=== PATIENT | male | born 1955 | race American Indian/Alaskan Native ===

== ENCOUNTER 2019-07-20 12:27 | Emergency (ER) | payer OTHER, SELFPAY ==
[2019-07-20 12:35] VITALS: BP 121/84; PULSE 81; RESP 18; TEMP 36.9; O2SAT 94; BMI 30.4
[2019-07-20 12:49] VITALS: BP 121/84; PULSE 87; RESP 18; O2SAT 95
--- NOTE | 2019-07-20 12:54 | XRR_ITS ---
PROCEDURE INFORMATION: Exam: XR Chest, 1 View Exam date and time: 07/20/2019 1:10 PM Age: 63 years old Clinical indication: Cough and dyspnea; Chest pain; Type not specified; Prior surgery; Surgery type: Lobectomy left side, aneurysm, hernia; Patient HX: Chest and shoulder pain; Additional info: Dyspnea/cough TECHNIQUE: Imaging protocol: XR of the chest Views: 1 view. COMPARISON: No relevant prior studies available. FINDINGS: Lungs: Interstitial prominence and chronic granulomatous disease. Mild thickening of the right minor fissure, with trace adjacent airspace disease. Poorly defined density overlying the left lung base, believed to represent epicardial fat. Correlation with PA and lateral chest radiographs is recommended for confirmation. Pleural space: No significant pleural effusion. Heart/Mediastinum: No cardiomegaly. Bones/joints: Degenerative change. XR/XR chest 1V portable [id number] IMPRESSION: 1. Mild thickening of the right minor fissure, with trace adjacent airspace disease. 2. Poorly defined density overlying the left lung base, believed to represent epicardial fat. Correlation with PA and lateral chest radiographs is recommended for confirmation.
--- NOTE | 2019-07-20 12:56 | ED_ITS ---
HPI - SOB/Dyspnea General: Chief Complaint: Shortness of Breath/Dyspnea Stated Complaint: shoulder pain Time Seen by Provider: 07/20/19 12:38 History of Present Illness: HPI Narrative: 63-year-old male comes in complaining of right upper back pain started overnight. He did eat a count of a fatty meal last night he denies any fever denies any nausea vomiting or diarrhea the no dysuria urgency or frequency no hematuria is not had any GI blood loss of any kind he has a mild vague abdominal pain, epigastric epigastric upper abdominal. He can reproduce the pain with a deep breath he denies any hemoptysis. He is not had any productive cough lately does smoke and has been started on inhalers told he has COPD he states his cough is actually decreased because it is painful to take a deep breath. MD elicited complaint: shortness of breath and pain with inspiration Pertinent past history: COPD Onset (ago): day(s) Timing: intermittent Severity: mild Exacerbating factors: inspiration Relieving factors: rest and upright position Known history of: COPD Associated symptoms: Reports abdominal pain; Deny chest pain, fever(s) or orthopnea Review of Systems Const: Denies: fever(s), chills, body aches, change in appetite, fatigue or malaise ENMT: Denies: throat pain, ear or mastoid pain, nasal discharge or nasal congestion Card: Denies: chest pain, edema, dyspnea on exertion or orthopnea Resp: Denies: dyspnea, productive cough or non-productive cough GI: Reports: abdominal pain : Denies: flank pain, dysuria, urinary frequency or urinary urgency Skin/Breast: Denies: rash or pruritus PFSH ED PFSH: Medical History Allergies Aortic aneurysm Arthritis COPD (chronic obstructive pulmonary disease) Heart attack History of hepatitis C HTN (hypertension) Surgical History H/O hernia repair S/P lobectomy of lung Family History Father Cancer Family/Other CAD (coronary artery disease) Cancer Grandfather Cancer Mother Brain aneurysm Social History Smoking and tobacco status: current every day smoker cigarettes Packs smoked per day: 2 Years cigarettes smoked: 50 Quit status (tobacco): has tried quititng Alcohol intake: current Alcohol intake frequency: 0-2 Drinks per Day Alcohol type: beer Lives independently: Yes Household members: spouse Marital status: service: Yes Current occupational status: disabled History of recent travel: No Current gender identity: Male Physical Exam Const: COMMON NORMALS: no acute distress GENERAL APPEARANCE: cooperative and comfortable ORIENTATION/CONSCIOUSNESS: Yes awake, Yes oriented to person, Yes oriented to place and Yes oriented to time HENMT: COMMON NORMALS: normocephalic, atraumatic, hearing grossly normal bilaterally, external ears normal, EAC's normal, TM's normal bilaterally, Normal nasal mucous membranes and turbinates present, moist oral mucous membranes and oropharynx normal HEAD & SCALP: normocephalic and atraumatic NOSE: Normal nasal mucous membranes and turbinates present EXTERNAL EAR: Yes external ears normal EXTERNAL AUDITORY CANAL: EAC's normal TYMPANIC MEMBRANE: TM's normal bilaterally Eye: COMMON NORMALS: Equal, round and reactive pupils present, EOMs intact bilaterally, conjunctivae normal and no scleral icterus CONJUNCTIVA: Yes conjunctivae normal PUPIL: Yes Equal, round and reactive pupils present Neck/C-Spine: COMMON NORMALS: full ROM, no lymphadenopathy, supple and no JVD Lymph: LYMPHATIC: no lymphadenopathy noted and no lymphedema noted Resp: COMMON NORMALS: normal respiratory effort, No retractions, No use of accessory muscles and clear to auscultation bilaterally AUSCULTATION: clear to auscultation bilaterally Cardio: COMMON NORMALS: no JVD, regular rate, regular rhythm and No murmurs present (Cardio) RATE: regular rate RHYTHM: regular rhythm GI: COMMON NORMALS: Soft to palpation and No hepatosplenomegaly present AUSCULTATION: Yes normoactive bowel sounds PALPATION: Yes Soft to palpation, No Tenderness to palpation present (GI), No Guarding due to palpation present (GI) and Yes No hepatosplenomegaly present Extremity: COMMON NORMALS: normal to inspection, capillary refill normal, no clubbing, cyanosis or edema, no calf tenderness and no pedal edema Neuro: SENSORIUM/ORIENTATION: Yes oriented to person, Yes oriented to place and Yes oriented to time Skin: COMMON NORMALS: no rashes or lesions noted GENERAL SKIN EXAM: no rashes or lesions noted Course Vital Signs: Vital signs: Vital Signs Temperature 98.5 F 07/20/19 12:35 Pulse Rate 76 07/20/19 15:23 Respiratory Rate 18 07/20/19 15:23 Blood Pressure 120/97 07/20/19 15:23 Pulse Oximetry 93 07/20/19 15:23 MDM - SOB/Dyspnea MDM Narrative: Medical decision making narrative: Reviewed findings with the patient. Very concerning mass in the right lung I think that is causing his discomfort will give him pain medications. Reviewing his chart he seen Dr. Salinas few months ago that recommended a CT screening for lung cancer he had not gotten that done yet. Given the results of today's CT does not need to screen anymore it is already showing a mass we will get him into see Dr. Salinas he will need a biopsy of this area hopefully will be amenable to be done through a bronchoscopy. Lab Data: Labs: Lab Results 07/20/19 07/20/19 07/20/19 Range/Units 13:04 13:04 13:40 WBC 8.7 (4.0-10.0) 10^3/ uL RBC 4.79 (4.1-5.3) 10^6/u L Hgb 14.8 (11.7-16.6) g/dL Hct 45.7 (42.0-52.0) % MCV 95.4 H (80-94) fL MCH 30.9 (28.0-34.0) pg MCHC 32.4 (30.0-36.0) g/dL RDW 12.7 (12.1-15.1) % Plt Count 202 (130-400) 10^3/c mm MPV 10.1 (7.4-10.4) fL Neut % (Auto) 55.2 % Lymph % (Auto) 31.9 % [place] % (Auto) 8.6 % Eos % (Auto) 3.4 % Baso % (Auto) 0.7 % Neut # (Auto) 4.8 (1.8-7.7) 10^3/u L Lymph # (Auto) 2.8 (0.8-4.8) 10^3/u L [place] # (Auto) 0.8 (0.2-0.9) 10^3/u L Eos # (Auto) 0.3 (0.0-0.8) 10^3/u L Baso # (Auto) 0.1 (0.0-0.1) 10^3/u L Nucleated RBC % (a uto) 0 % Nucleated RBCs # 0.0 /100WBC Sodium 138 (136-145) mmol/L Potassium 4.3 (3.5-5.1) mmol/L Chloride 101 (98-107) mmol/L Carbon Dioxide 24 (22-29) mmol/L Anion Gap 17.3 (5-19) BUN 10 (8-23) mg/dL Creatinine 0.8 (0.7-1.2) mg/dL GFR Calculation 97.0 (90-130) mL/min Glucose 102 (65-115) mg/dL Calculated Osmolal ity 282 L (285-295) mOsm/k g Calcium 9.4 (8.5-10.5) mg/dL Total Bilirubin 0.2 (0.15-1.2) mg/dL AST 23 (0-40) U/L ALT 17 (0-41) U/L Alkaline Phosphata se 63 (40-130) IU/L Total Protein 7.9 (6.6-8.7) g/dL Albumin 4.4 (3.5-5.2) g/dL Globulin 3.5 (1.3-4.6) g/dL Lipase 54 (13-60) U/L Urine Color Yellow (Yellow) Urine Appearance Clear (CLEAR) Urine pH 5 (5-7) Ur Specific Gravit y 1.015 (1.005-1.030) Urine Protein Neg (Negative) Urine Glucose (UA) Norm (Normal) Urine Ketones Negative (Negative) Urine Blood Neg (Negative) Urine Nitrate Negative (Negative) Urine Bilirubin Neg (NEGATIVE) Urine Urobilinogen Norm (Negative) mg/dL Ur Leukocyte Angela ase Negative (Negative) Discharge Plan Discharge Patient Disposition: Home, Self-Care Clinical Impression: Mass of right lung, COPD (chronic obstructive pulmonary disease) Condition: Stable Prescriptions: New doxycycline hyclate 100 mg capsule 100 mg PO BID 10 Days Qty: 20 RF: 0 hydrocodone-acetaminophen 5-325 mg tablet 1 tab PO Q6H PRN (Reason: pain) Qty: 25 RF: 0 Medrol (Nick) 4 mg tablets,dose pack See Rx Instructions .ROUTE .COMPLEX Qty: 21 RF: 0 No Action budesonide-formoterol [Symbicort] 160-4.5 mcg/actuation HFA aerosol inhaler 2 puff INHALATION BID RF: 0 oxycodone 5 mg capsule 5 mg PO Q6H PRN (Reason: Pain) RF: 0 gabapentin 300 mg capsule 300 mg PO TID RF: 0 tamsulosin 0.4 mg capsule 0.4 mg PO DAILY RF: 0 lisinopril 10 mg tablet 10 mg PO DAILY RF: 0 guaifenesin 400 mg tablet 400 mg PO BID PRN (Reason: unknown) RF: 0 cetirizine [Zyrtec] 10 mg tablet 10 mg PO DAILY RF: 0 diclofenac sodium 75 mg tablet,delayed release (DR/EC) 75 mg PO BID RF: 0 aspirin [Aspirin Low Dose] 81 mg tablet,delayed release (DR/EC) 81 mg PO DAILY RF: 0 omega-3 fatty acids [Fish Oil Concentrate] 1,000 mg capsule 1,000 mg PO DAILY RF: 0 diphenhydramine HCl [Benadryl Allergy] 25 mg tablet 25 mg PO BID PRN (Reason: unknown) RF: 0 Trelegy Ellipta 100-62.5-25 mcg blister with device 1 inh INHALATION Q24H 90 Days Qty: 60 RF: 3 fluticasone propionate [Flonase Allergy Relief] 50 mcg/actuation spray,suspension 1 spray INTRANASAL BID 90 Days Qty: 18.2 RF: 3 albuterol sulfate 2.5 mg /3 mL (0.083 %) Solution For Nebulization 2.5 mg INHALATION Q6H PRN (Reason: Shortness Of Breath) RF: 0 hydrochlorothiazide 25 mg Tablet 12.5 mg PO QAM RF: 0 ProAir HFA 90 mcg/actuation Hfa Aerosol Inhaler 2 puff INHALATION QID PRN (Reason: Shortness Of Breath) RF: 0 potassium gluconate 595 mg (99 mg) Tablet 595 mg PO DAILY RF: 0 Vitamin D3 50 mcg (2,000 unit) Tablet 4,000 unit PO DAILY RF: 0 magnesium oxide 1 tab PO DAILY RF: 0 Discharge Orders: Discharge Order (Routine); Ordered 07/20/19 Ordered By: Eleazar Thomas Referrals: Mary Salinas MD [Physician] - (Right lung mass on CT will need biopsy has history of previous adeno CA lung on the left lower lobe) Discharge Diet: Usual diet Discharge Activity: Increase activity as tolerated Activity Restrictions/Additional Instructions: client relationship manager will call to get you back into see Dr. Salinas for further evaluation Discharge Date/Time: 07/20/19 15:18 Coding Level of Care Code ED Lan Manager for Chg Fwd Exam Comprehensive
[2019-07-20] MEDS: sodium chloride 0.9% 1,000 ML 999 ML IV (13:06)
[2019-07-20 13:11] VITALS: BP 121/84; PULSE 84; RESP 18; O2SAT 95
[2019-07-20 13:12] LABS: Basophils # 0.1 10^3/uL (0.0-0.1); Basophils % 0.7 %; Eosinophils # 0.3 10^3/uL (0.0-0.8); Eosinophils % 3.4 %; Hematocrit 45.7 % (42.0-52.0); Hemoglobin 14.8 g/dL (11.7-16.6); Lymphocytes # 2.8 10^3/uL (0.8-4.8); Lymphocytes % 31.9 %; Mean Corpuscular HGB Conc 32.4 g/dL (30.0-36.0); Mean Corpuscular Hemoglobin 30.9 pg (28.0-34.0); Mean Corpuscular Volume 95.4 fL (80-94); Mean Platelet Volume 10.1 fL (7.4-10.4); Monocytes # 0.8 10^3/uL (0.2-0.9); Monocytes % 8.6 %; Neutrophils # 4.8 10^3/uL (1.8-7.7); Neutrophils % 55.2 %; Nucleated Red Blood Cells % 0 %; Platelet Count 202 10^3/cmm (130-400); Red Blood Count 4.79 10^6/uL (4.1-5.3); Red Cell Distribution Width 12.7 % (12.1-15.1); White Blood Count 8.7 10^3/uL (4.0-10.0)
[2019-07-20 13:25] LABS: Alanine Aminotransferase 17 U/L (0-41); Albumin Level 4.4 g/dL (3.5-5.2); Alkaline Phosphatase 63 IU/L (40-130); Anion Gap 17.3 (5-19); Aspartate Amino Transferase 23 U/L (0-40); Blood Urea Nitrogen 10 mg/dL (8-23); Calcium 9.4 mg/dL (8.5-10.5); Carbon Dioxide 24 mmol/L (22-29); Chloride 101 mmol/L (98-107); Globulin 3.5 g/dL (1.3-4.6); Glucose 102 mg/dL (65-115); Lipase 54 U/L (13-60); Osmolality Calculated 282 mOsm/kg (285-295); Potassium 4.3 mmol/L (3.5-5.1); Sodium 138 mmol/L (136-145); Total Bilirubin 0.2 mg/dL (0.15-1.2); Total Protein 7.9 g/dL (6.6-8.7)
--- NOTE | 2019-07-20 13:50 | CT_ITS ---
WS: [id number] CT CHEST ANGIOGRAPHY WITH REFORMATS HISTORY: dyspnea TECHNIQUE: Contiguous axial images are obtained through the chest during arterial injection of intrav enous contrast. Images are reconstructed to evaluate the pulmonary arteries. MIP imaging also reviewe d. All CT scans at [facility] use at least one of these dose optimization techniques: aut omated exposure control; mA and/or kV adjustment per patient size (includes targeted exams where dose is matched to clinical indication); or iterative reconstruction. CONTRAST: Omnipaque 350; 95 mL IV. DLP: 568.74 mGy.cm COMPARISON: 08/08/2012 Very good opacification of the pulmonary arteries. There are no filling defects or pulmonary embolism . Atherosclerosis of the thoracic aorta with no aneurysm. Pulmonary artery size is normal. Chronic emphysema. There is new groundglass attenuation along the RIGHT minor fissure. Groundglass at tenuation extends into the RIGHT hilum. RIGHT hilar soft tissue mass is probably a cluster of lymph n odes encasing the RIGHT hilar bronchial structures. There is invasion into the superior RIGHT pulmona ry vein. Soft tissue mass measures at least 3.3 x 3.8 cm. Additional subcarinal lymph node at 1.2 cm. Long-term stability 6 mm nodule at the RIGHT lung base. No adrenal mass. No abnormality within the liver. Liver evaluation is limited by contrast injection t iming. Partial visualization endovascular graft in the abdominal aorta. No osteoblastic or osteolytic bone disease. There are several healed rib fractures in the posterior L EFT thorax. CT/CT angio chest PE protcl [id number] IMPRESSION: 1. No pulmonary embolism. 2. RIGHT hilar mass encasing the central RIGHT bronchopulmonary structures arjun sures at least 3.3 x 3.8 cm with invasion into the superior RIGHT pulmonary vei n. Most likely adenopathy or squamous cell carcinoma. Recommend follow-up PET/C T imaging. 3. Enlarged subcarinal lymph node. 4. Chronic emphysema. 5. Groundglass attenuation along the RIGHT minor fissure is either 2 pneumonit is or lymphangitic spread of tumor.
[2019-07-20 13:54] VITALS: BP 120/97; PULSE 75; RESP 18; O2SAT 93
[2019-07-20 13:54] LABS: Add Urine Microscopic? NO
[2019-07-20 13:59] LABS: Bilirubin Urine Neg (NEGATIVE); Blood Urine Neg (Negative); Glucose Urine UA Norm (Normal); Ketones Urine Negative (Negative); Leukocyte Esterase Urine Negative (Negative); Nitrate Urine Negative (Negative); Protein Urine Neg (Negative); Specific Gravity, Urine 1.015 (1.005-1.030); Urine Appearance Clear (CLEAR); Urine Color Yellow (Yellow); Urobilinogen Urine Norm (Negative); pH Urine 5 (5-7)
[2019-07-20] MEDS: iohexol 350 mg/mL 100 mL Btl IV (14:10)
[2019-07-20 15:23] VITALS: BP 120/97; PULSE 76; RESP 18; O2SAT 93
--- NOTE | 2019-07-23 09:40 | DCPLANNER ---
completion manager had message to schedule a follow up appointment for patient with Dr. Salinas at [facility], [place]. completion manager called [facility], spoke with [place], gave clinic patients information. completion manager was told that patients information would be printed and reviewed. Clinic will call patient with appointment information.
--- NOTE | 2019-07-24 08:42 | DCPLANNER ---
Patient has a follow up appointment scheduled for Tuesday, July 30, 2019 at 8:[address] Salinas. supplier quality manager has spoke with May [facility] and informed her that patient has an appointment scheduled. Clinic will call patient with appointment information. supplier quality manager faxed patients information to [facility] the [facility].
--- NOTE | 2019-08-08 14:37 | DCPLANNER ---
Patient did attend appointment scheduled for 08.07.19 with [facility].
== END 2019-07-20 15:18 | disposition home or self-care (01) ==
PROVIDERS: Emergency Provider Family Medicine; PCP Emergency Medicine Emergency Medical Services
DX: J44.9 Chronic obstructive pulmonary disease, unspecified (principal); R91.8 Other nonspecific abnormal finding of lung field; Z79.82 Long term (current) use of aspirin; I10 Essential (primary) hypertension; Z86.19 Personal history of other infectious and parasitic diseases; F17.210 Nicotine dependence, cigarettes, uncomplicated
CPT/HCPCS: 12345; 71045; 71275; 80053; 81003; 83690; 85025; 96360; 99283; J7030; Q9967

== ENCOUNTER 2019-08-14 11:09 | Outpatient (CLI) | payer OTHER, SELFPAY ==
[2019-08-14 11:50] VITALS: O2SAT 93
--- NOTE | 2019-08-14 13:02 | PFTS_ITS ---
Date of Study:08/14/19 Date of Dictation: MECHANICS: Forced vital capacity (FVC) is reduced. Forced expiratory volume in one second (FEV1) is reduced. FEV1/FVC is reduced. FLOW VOLUME LOOP: Reduced flow at all lung volumes with significant scooping. LUNG VOLUMES: Total lung capacity (TLC) is normal. Residual volume (RV) is elevated. DIFFUSING CAPACITY FOR CARBON MONOXIDE: Moderately reduced. INTERPRETATION: The pulmonary function tests are consistent with moderate obstruction. There is significant postbronchodilator response. Lung volumes are consistent with air trapping. Gas exchange (DLCO) is moderately reduced. MTDD
== END 2019-08-14 11:10 | disposition home or self-care (01) ==
LOC: RT 11:10
PROVIDERS: PCP Emergency Medicine Emergency Medical Services; Visit Provider Internal Medicine Critical Care Medicine
DX: J44.9 Chronic obstructive pulmonary disease, unspecified (principal)
CPT/HCPCS: 94060; 94726; 94729; J7611

== ENCOUNTER 2019-08-22 05:50 | Day surgery (SDC) | payer OTHER, SELFPAY ==
[2019-08-21 15:22] VITALS: BMI 29.5
[2019-08-22] VITALS (9 sets, daily range): BP systolic 124–167; BP diastolic 62–89; PULSE 78–103; RESP 16–24; TEMP 36.6–37.2; O2SAT 91–97
[2019-08-22] MEDS: sodium chloride 0.9% 1,000 ML 30 ML IV (06:22)
--- NOTE | 2019-08-22 06:49 | W.PM.OPSFHP ---
Same Day Surgery H&P Indication for Procedure/HPI DATE OF PROCEDURE: August 22, 2019 CHIEF COMPLAINT/INDICATIONFOR SURGICAL PROCEDURE: Suspected lung cancer PREOP DIAGNOSIS: Lung Cancer PLANNED PROCEDRUE: Bronchoscopy inspection of the airway, endobronchial ultrasound-guided transbronchial needle aspiration of lymph nodes, possible endobronchial biopsy Operation Date: 08/22/19 07:00 Proposed Procedures p Ebus(Not Applicable) - Mary Salinas MD This is a 63-year-old gentleman that I had evaluated in June of this year. The reason for the evaluation was COPD. The patient has gold class D COPD. The patient also has a history of adenocarcinoma of the left lung for which he underwent surgical resection. No chemoradiation therapy was performed. When I saw him the last time I had prescribed Trelegy which she has not gotten as the [place] did not approve for it. The patient was supposed to get a pulmonary function test, 6-minute walk test. The patient presented to the hospital with back pain on July 19. He underwent a chest CT scan as a part of work-up for pulmonary embolism. CT scan of the chest revealed a right hilar mass encasing the right bronchopulmonary structures. There was also subcarinal lymphadenopathy. The patient during his last visit was ordered a low-dose CT scan for lung cancer screening however that was not performed yet. The patient is an active smoker. Complaining of chronic cough, sputum production. Denies any fever, night sweats, chills, hemoptysis, weight loss or loss of appetite. Medications/Allergies* Home Medications Medication Instructions Recorded Confirmed Type aspirin 81 mg tablet,delayed 81 mg PO DAILY 06/19/19 08/21/19 History release cetirizine 10 mg tablet 10 mg PO DAILY 06/19/19 08/21/19 History diclofenac sodium 75 mg 75 mg PO BID 06/19/19 08/21/19 History tablet,delayed release diphenhydramine HCl 25 mg tablet 25 mg PO BID PRN tab 06/19/19 08/21/19 History gabapentin 300 mg capsule 300 mg PO TID 06/19/19 08/21/19 History guaifenesin 400 mg tablet 400 mg PO BID PRN tab 06/19/19 08/21/19 History lisinopril 10 mg tablet 10 mg PO DAILY 06/19/19 08/21/19 History omega-3 fatty acids 1,000 mg 1,000 mg PO DAILY 06/19/19 08/21/19 History capsule oxycodone 5 mg capsule 5 mg PO Q6H PRN 06/19/19 08/21/19 History tamsulosin 0.4 mg capsule 0.4 mg PO DAILY 06/19/19 08/21/19 History albuterol sulfate 2.5 mg INHALATION Q6H PRN 07/20/19 08/21/19 History albuterol sulfate [ProAir HFA] 2 puff INHALATION QID PRN 07/20/19 08/21/19 History cholecalciferol (vitamin D3) 4,000 unit PO DAILY 07/20/19 08/21/19 History [Vitamin D3] potassium gluconate 595 mg PO DAILY 07/20/19 08/21/19 History budesonide-formoterol [Symbicort] 2 puff INHALATION BID 08/21/19 08/21/19 History Allergies/Adverse Reactions Allergy/AdvReac Type Severity Reaction Status Date / Time Penicillins Allergy Severe ALGY-Rash Verified 08/21/19 15:25 [id number] Reductase Allergy Severe Unknown Verified 08/21/19 15:25 Inhibitor Current Medications: Generic Name Dose Route Start Last Admin Trade Name Freq PRN Reason Stop Dose Admin Sodium Chloride 1,000 mls @ 30 mls/hr 08/22/19 06:00 08/22/19 06:22 Sodium Chloride 0.9% IV 08/23/19 05:59 30 mls/hr .Q24H AGUS Administration Pertinent History/Comorbid Conditions* Medical History (Updated 08/07/19 @ 12:05 by Mary Salinas MD) Allergies Aortic aneurysm Arthritis COPD (chronic obstructive pulmonary disease) Heart attack History of hepatitis C HTN (hypertension) Surgical History (Updated 06/19/19 @ 08:59 by Mary Salinas MD) H/O hernia repair S/P lobectomy of lung Family History (Updated 06/19/19 @ 08:39 by Diana Amador LPN) CAD (coronary artery disease) Family/Other Brain aneurysm Mother Cancer Father Family/Other Grandfather Social History Smoking and tobacco status: current every day smoker cigarettes Packs smoked per day: 2 Years cigarettes smoked: 50 Quit status (tobacco): has tried quititng Alcohol intake: current Alcohol intake frequency: 0-2 Drinks per Day Alcohol type: beer Lives independently: Yes Household members: spouse Marital status: service: Yes Current occupational status: disabled History of recent travel: No Current gender identity: Male Pertinent Exam Findings alert and oriented x 3 General: Patient is awake alert and oriented, in no acute distress. Neck: No JVD, no cervical or supraclavicular lymphadenopathy. Respiratory: Inspection: No visible deformity of the chest wall Palpation: Trachea is mildly deviated to the left, bilateral symmetric expansion Percussion: Bilateral tympanic percussion note both anterior and posteriorly Auscultation: Reduced breath sound in the left lower lung posteriorly, bilateral vesicular breath sound with prolonged expiration, no crackles wheezing or rhonchi Cardiovascular: Regular rate and rhythm, S1-S2 present, distant heart sound, no murmur, no right ventricular heave, no peripheral edema Abdomen: Soft, nontender, mildly distended from obesity, positive bowel sound Musculoskeletal: Swelling of the right knee, normal gait Neuro: Mental status is normal, no gross cranial nerve deficit, normal motor and coordination. Recommendations Surgery/Procedure today Coding Level of Care Code Acute [place] Feather Trimmer for g Carrillo
--- NOTE | 2019-08-22 07:17 | ANES.PREANE2 ---
Pre-Anesthetic Assessment Pre-Anesthetic Assessment: Height/Weight: Height 1.75 m Weight 90.718 kg Temp Pulse Resp BP Pulse Ox 98.9 F 78 18 152/70 93 08/22/19 05:59 08/22/19 05:59 08/22/19 05:59 08/22/19 05:59 08/22/19 05:59 Preop Diagnosis: Lung Cancer Proposed Procedure: Operation Date: 08/22/19 07:00 Proposed Procedures p Ebus(Not Applicable) - Mary Salinas MD Was Beta Gauri taken within 24 hours: N/A Last intake: Intake Last Liquid Date 08/21/19 Last Liquid Time 22:00 Last Solid Date 08/21/19 Last Solid Time 18:30 Social: Social History: Alcohol and Tobacco Exam: Pre-Anes Outpt Exam: alert and oriented x 3 Additional Exam Findings (including area of procedure): Lungs: bilateral coarse rales; prolonged active expiratory phase Pulmonary: Pulmonary: COPD, Cough, REYEZ and SOB (s/p lobectomy) CV/HEM: CV/HEM: CAD (SC in 2008; no stents) and HTN : : Chronic renal Insufficiency Hepatic: Hepatic: None reported GI: GI: None reported Metabolic: Metabolic: None reported Musc/skel: Musc/skel: None reported Neuropsych: Neuropsych: None reported Anesthetic Plan: ASA status: 4 Anesthesia: General Meds/Allergies Current Medications: Current Medications Generic Name Dose Route Start Last Admin Trade Name Freq PRN Reason Stop Dose Admin Sodium Chloride 1,000 mls @ 30 ml s/hr 08/22/19 06:00 08/22/19 06:22 Sodium Chloride 0.9% IV 08/23/19 05:59 30 mls/hr .Q24H AGUS Administration PFSH Anesthesia PFSH: Medical History (Updated 08/07/19 @ 12:05 by Mary Salinas MD) Allergies Aortic aneurysm Arthritis COPD (chronic obstructive pulmonary disease) Heart attack History of hepatitis C HTN (hypertension) Surgical History H/O hernia repair S/P lobectomy of lung Family History Father Cancer Family/Other CAD (coronary artery disease) Cancer Grandfather Cancer Mother Brain aneurysm Social History Smoking and tobacco status: current every day smoker cigarettes Packs smoked per day: 2 Years cigarettes smoked: 50 Quit status (tobacco): has tried quititng Alcohol intake: current Alcohol intake frequency: 0-2 Drinks per Day Alcohol type: beer Lives independently: Yes Household members: spouse Marital status: service: Yes Current occupational status: disabled History of recent travel: No Current gender identity: Male Data Anesthesia Cardiac Studies: No Data to Display
--- NOTE | 2019-08-22 08:16 | PM.OP ---
Operative Report Date of procedure: August 22, 2019 Pre-op Diagnosis: Lung Cancer Post-op diagnosis: same Brief History: 63-year-old gentleman coming in for bronchoscopy evaluation for possible lung cancer. His recent CT scan revealed a right hilar mass encasing the vascular structures with invasion into the pulmonary vein. Procedure: Name of the procedure: Bronchoscopy with inspection of the airway, endobronchial ultrasound-guided transbronchial needle aspiration of lymph nodes and control of bleeding. Indication: Suspected lung cancer. Anesthesia: General anesthesia. Local anesthesia: The karin in the right and left mainstem bronchi were anesthetized with 1% lidocaine, 3 mL. Description of the procedure: The procedure was explained to the patient and the consent was obtained. The patient was brought to the OR. The patient underwent endotracheal intubation for general anesthesia. Following induction of general anesthesia, the bronchoscope was advanced through the ET tube. The lower trachea appeared to be erythematous, no endotracheal lesion was seen. The karin was sharp. The karin, the right and left mainstem bronchi are anesthetized with 1% lidocaine. In a systematic manner bilateral bronchial tree was then examined. The bronchoscope was advanced into the left mainstem bronchus. The left upper lobe and lingular segment bronchus was occluded consistent with a previous history of left upper lobe resection. There was distortion of the left mainstem bronchus. The bronchoscope was introduced into the left lower lobe bronchus and the segments were examined up to the third subsegmental level. No endobronchial lesion was seen. The bronchoscope was then introduced into the right mainstem bronchus. The right upper lobe, right middle lobe and right lower lobe bronchi were examined up to the third subsegmental level and no abnormalities were identified. There was airway significant erythema and mucus throughout the lung. The endobronchial ultrasound was introduced through the ET tube. Significant subcarinal and right hilar lymphadenopathy was identified. Fine-needle aspiration was performed from station 7 and 10. Samples: 1. The transbronchial needle aspiration of the aforementioned lymph node groups were sent for cytology. Complications: There was no immediate complications. The patient was extubated and brought to the PACU in stable condition.
[2019-08-22] MEDS: lidocaine 1% INJ 20 mL XX (08:36)
== END 2019-08-22 09:36 | disposition home or self-care (01) ==
PROVIDERS: PCP Emergency Medicine Emergency Medical Services; Visit Provider Internal Medicine Critical Care Medicine
PROC: BB4BZZZ Ultrasonography of Pleura (ICD-10-PCS; principal; 2019-08-22 07:00)
DX: Z85.118 Personal history of other malignant neoplasm of bronchus and lung (principal); R91.8 Other nonspecific abnormal finding of lung field; J44.9 Chronic obstructive pulmonary disease, unspecified; I25.10 Atherosclerotic heart disease of native coronary artery without angina pectoris; I25.2 Old myocardial infarction; I10 Essential (primary) hypertension; Z86.19 Personal history of other infectious and parasitic diseases; Z82.49 Family history of ischemic heart disease and other diseases of the circulatory system; F17.210 Nicotine dependence, cigarettes, uncomplicated; Z79.82 Long term (current) use of aspirin
CPT/HCPCS: 12345; 31628; 88173; 88305; J2250; J2405; J2704; J2710; J3010; J3490; J7030

== ENCOUNTER 2019-09-10 13:45 | Outpatient (CLI) | payer OTHER, SELFPAY ==
--- NOTE | 2019-09-10 19:14 | ONC CON_ITS ---
Dr. Grissom New Patient Note Patient: Satish Fry Unit #: [id number]: 1955 Dicatated By: Gino Grissom M.D.Date of Visit: Sep 10, 2019 Onc MED New Patient/Consult Referring Physician: Eugenio WOOD M.D. Chief Complaint: Lung cancer. History of Present Illness: This is a 63 year-old man with non-small cell lung cancer. On 09/04/2012 he underwent left upper lobectomy with mediastinal lymphadenectomy for grade 3/4 adenocarcinoma, stage IB (T2a, N0, M0). The primary tumor measured 3.1 x 3.0 x 2.6 cm. There was no involvement in a total of 14 lymph nodes. I had seen him for medical oncology consultation on 09/28/2012. He received no further treatment, as there appeared to be no indication for postoperative chemotherapy or radiation. On 07/20/2019 he had presented to the emergency room with chest pain and shortness of breath. His CT pulmonary angiogram showed no evidence of pulmonary embolism. However, he was noted to have a 3.3 x 3.8 cm right hilar mass encasing the central right bronchopulmonary structures. There was invasion into the superior right pulmonary vein. There was additional subcarinal lymph node measuring 1.2 cm. Groundglass attenuation along the right minor fissure appeared compatible with either pneumonitis or lymphangitic spread of tumor. Staging PET/CT on 08/18/2019 showed perihilar mass in the right upper lobe measuring 2.8 cm in diameter with SUV 13.5, consistent with malignancy. A secondary right hilar lymph node measuring 1.4 x 2.5 cm with SUV 9.5, consistent with metastatic disease. The subcarinal lymph node did not demonstrate significant FDG activity and other mediastinal lymph nodes appeared radiographically benign and FDG negative. On 08/22/2019 he underwent bronchoscopy/EBUS with transbronchial needle aspiration biopsy of station 7 and station 10R lymph nodes. There were no endobronchial lesions identified. Pathology on the station 7 lymph node showed benign reactive lymph node with no evidence of dysplastic or neoplastic process. The 10R lymph node showed metastatic non-small cell carcinoma favoring squamous cell carcinoma. It was noted that additional immunohistochemical studies were being performed, but results have not been reported. He is seen now for further management of the lung cancer. He indicates that he has not been feeling good generally. He has had decline in energy and activity tolerance, and he also just has not felt like doing anything. His ECOG score is 1. His appetite is good. His weight is up about 5 pounds. He has not had fever. He was having significant night sweating about every other day, but he has not had any in the past week or so. He does get short of breath very easily. He has cough productive of white sputum. He had hemoptysis for about a week or so after the bronchoscopy, but that has resolved. He has had some fullness/pain in the substernal area at times, and he also has continued to have some postthoracotomy pain, but that does tend to be positional. He has no GI/ complaints other than frequent urination. He says he has pain in every joint, which is chronic. He does not complain of headache or dizziness, and he has no focal neurologic symptoms. He has posttraumatic stress disorder with anxiety and depression, and his anxiety has been significantly worse with this illness. Past Medical History: His medical history includes anxiety, chronic obstructive pulmonary disease, coronary artery disease, degenerative arthritis, depression, dyslipidemia, hypertension, and post traumatic stress disorder. He has a history of treated hepatitis C, and he has had treatment for an abdominal aortic aneurysm. Past Surgical History: His surgical/procedural history includes endograft repair of abdominal aortic aneurysm, umbilical hernia repair, and left upper lobectomy in 2013. Medications: Benadryl Allergy 1 Tablet (of 25 mg) Oral daily PRN, Cetirizine HCl 1 Tablet (of 10 mg) Oral daily, Diclofenac 1 Capsule Oral daily PRN, Gabapentin 1 (300 mg) Capsule Oral t.i.d., Lisinopril 1 Tablet (of 5 mg) Oral daily, oxyCODONE HCl 1 Tablet (of 5 mg) Oral t.i.d. PRN, Tamsulosin HCl 1 Capsule (of 0.4 mg) Oral daily Allergies: PENICILLIN and Statins. Social History: Mr. Fry is and he is on disability. 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 He has a history of smoking 2 packs of cigarettes daily for 50 years. He has moderate alcohol, averaging 2-3 beers daily. Family History: Father of prostate cancer at age 64. Mother with a cerebral aneurysm at age 83. A brother with liver cancer at age 56. His paternal grandfather had pancreatic cancer, a maternal uncle had lymphoma, and a paternal aunt had lung cancer. Review Of Symptoms: Constitutional - He has had decline in energy, and he says he does not feel like doing anything. Appetite is good. His weight is up about 5 pounds. He has not had fever. He was having significant night sweating, up to every other day, but not during the past week or so. ECOG score is 1, Eyes - He has been told he has early cataracts, ENMT - He has sinus congestion/drainage all the time. No mouth sores. No sore throat or difficulty swallowing, Hematologic/Lymphatic - He has some bruising, Respiratory - He has cough productive of white sputum. He sometimes has chest pain, described as a fullness or hurt in the substernal area. He still has postthoracotomy pain, which is positional. He had hemoptysis during the first week or so after the bronchoscopy, Cardiovascular - No angina pain. No palpitations, Gastrointestinal - No nausea or vomiting. No heartburn or acid reflux. No diarrhea or constipation. No blood in the stool or black stools, Genitourinary (M) - No dysuria or hematuria. He has urinary frequency. No urgency or incontinence, Musculoskeletal - He has pain in every joint, especially in the lower extremities, Integumentary - No skin rash or other skin problems, Neurologic - No headache or dizziness. No numbness or tingling. No other focal neurologic symptoms, Psychiatric - He has anxiety and depression. He has not been sleeping well. Vital Signs: Performed on Sep 10, 2019 14:10: 6, 31.38 (HIGH), 2.10 sq.m, 68.50 in, 95 % (LOW), 84 /min, 24 /min, 136/76 mm(hg), 98.7 F, and 209.4 lbs (HIGH). Physical Examination: Constitutional - He does not appear acutely ill, Eyes - Sclerae nonicteric. Conjunctivae clear, ENMT - No lesions noted in the oral cavity, Neck - No mass or thyromegaly, Hematologic/Lymphatic - No cervical, clavicular, or axillary adenopathy, Respiratory - Lungs are clear with diminished air movement bilaterally, Cardiovascular - Heart rhythm is regular. There is no murmur, gallop, or rub noted, Abdomen - Soft and non-tender. Liver and spleen are not enlarged. There is no abdominal mass or ascites noted and there is no inguinal adenopathy, Back/Spine - No spine or CVA tenderness noted, Extremities - No edema. Posterior tibial pulses are palpable bilaterally, Integumentary - No rashes. No suspicious skin lesions noted, Neurologic - No focal neurologic deficits noted. Impression: 1. Patient with grade 3/4 adenocarcinoma involving the upper lobe of the left lung, stage IB (T2a, N0, M0), for which he underwent thoracotomy with left upper lobectomy and mediastinal lymphadenectomy on 09/04/2012. 2. He now has biopsy-proven non-small cell carcinoma involving her right hilar mass. Pathology favored squamous cell carcinoma. Given the interval from his surgery, the location of the mass, and the histology, that appears to be most likely a second primary malignancy. By PET/CT there appears to be additional right hilar adenopathy so that by clinical evaluation his disease appears to be stage IIB (T2a, N1, M0). His other medical illnesses include: 3. COPD. 4. Hypertension. 5. Dyslipidemia. 6. Coronary artery disease with previous myocardial infarction. 7. Degenerative arthritis. 8. History of treated hepatitis C. 9. History of abdominal aortic aneurysm for which he underwent endograft repair in 2010. 10. Posttraumatic stress disorder with anxiety/depression. Plan: The PET/CT findings and pathology results were reviewed with the patient and his . We discussed the clinical implications. For the reasons stated, this appears to be most likely a new primary malignancy. Due to the location of the mass and his underlying COPD, he does not appear to be a suitable candidate for surgical resection. As such, he is recommended to undergo radiation concurrently with weekly carboplatin/Taxol chemotherapy with the possibility of maintenance immunotherapy depending on his response to the treatment. I reviewed anticipated side effects with the chemotherapy including the potential for nausea, fatigue, alopecia, low blood counts, and neuropathy, among others. I will review the PET/CT with the radiation oncologist and assuming he is agreeable, we can then proceed with radiation planning. In the meantime, he will be given a prescription for alprazolam 0.25 mg to take up to 3 times a day for the anxiety. Signed By: Gino Grissom M.D. <<Signature on File>>
== END 2019-09-10 13:46 | disposition home or self-care (01) ==
PROVIDERS: PCP Emergency Medicine Emergency Medical Services; Referring Provider Internal Medicine Critical Care Medicine; Visit Provider Internal Medicine Medical Oncology
DX: C34.01 Malignant neoplasm of right main bronchus (principal); Z90.2 Acquired absence of lung [part of]; C77.1 Secondary and unspecified malignant neoplasm of intrathoracic lymph nodes; F43.10 Post-traumatic stress disorder, unspecified; F41.8 Other specified anxiety disorders; J44.9 Chronic obstructive pulmonary disease, unspecified; I25.10 Atherosclerotic heart disease of native coronary artery without angina pectoris; E78.5 Hyperlipidemia, unspecified; I10 Essential (primary) hypertension; Z86.19 Personal history of other infectious and parasitic diseases; F17.210 Nicotine dependence, cigarettes, uncomplicated; F10.20 Alcohol dependence, uncomplicated; I25.2 Old myocardial infarction; Z79.891 Long term (current) use of opiate analgesic; Z85.118 Personal history of other malignant neoplasm of bronchus and lung
CPT/HCPCS: 99205

== ENCOUNTER 2019-09-25 05:45 | Outpatient (RCR) | payer OTHER, SELFPAY ==
[2019-09-24 14:32] LABS: Basophils # 0.1 10^3/uL (0.0-0.1); Basophils % 0.8 %; Eosinophils # 0.4 10^3/uL (0.0-0.8); Eosinophils % 4.6 %; Hematocrit 45.8 % (42.0-52.0); Hemoglobin 14.7 g/dL (11.7-16.6); Lymphocytes # 3.5 10^3/uL (0.8-4.8); Lymphocytes % 39.2 %; Mean Corpuscular HGB Conc 32.1 g/dL (30.0-36.0); Mean Corpuscular Hemoglobin 30.9 pg (28.0-34.0); Mean Corpuscular Volume 96.4 fL (80-94); Mean Platelet Volume 10.3 fL (7.4-10.4); Monocytes # 0.8 10^3/uL (0.2-0.9); Monocytes % 8.5 %; Neutrophils # 4.14 10^3/uL (1.8-7.7); Neutrophils % 46.7 %; Nucleated Red Blood Cells % 0 %; Platelet Count 219 10^3/cmm (130-400); Red Blood Count 4.75 10^6/uL (4.1-5.3); Red Cell Distribution Width 12.4 % (12.1-15.1); White Blood Count 8.9 10^3/uL (4.0-10.0)
[2019-09-24 15:08] LABS: Alanine Aminotransferase 17 U/L (0-41); Albumin Level 4.3 g/dL (3.5-5.2); Alkaline Phosphatase 67 IU/L (40-130); Anion Gap 12.1 (5-19); Aspartate Amino Transferase 21 U/L (0-40); Blood Urea Nitrogen 11 mg/dL (8-23); Calcium 8.7 mg/dL (8.5-10.5); Carbon Dioxide 25 mmol/L (22-29); Chloride 105 mmol/L (98-107); Globulin 3.5 g/dL (1.3-4.6); Glomerular Filtration Rate 113.2 mL/min (90-130); Glucose 125 mg/dL (65-115); Osmolality Calculated 284 mOsm/kg (285-295); Potassium 4.1 mmol/L (3.5-5.1); Sodium 138 mmol/L (136-145); Total Bilirubin 0.2 mg/dL (0.15-1.2); Total Protein 7.8 g/dL (6.6-8.7)
--- NOTE | 2019-09-25 | CT_ITS ---
Radiation Therapy Planning CT images; total exam DLP: 1937.36 mGy-cm MTDD
--- NOTE | 2019-09-25 19:26 | N.ONRAD NP_ITS ---
Radiation Oncology New Patient Visit Patient: Satish Fry MR#: [id number] : 1955 Age: 63 Sex: Male Dictated by: Dr. Alen Oneil Date of Service: 09/24/2019 Referring Physician(s) : Eugenio Weiss M.D. Primary Site: -) Left upper lobe of lung (2012) -) Right upper lobe of lung (2019) Diagnosis: -) Left upper lobe of lung: T2 aN0 M0 adenocarcinoma status post left upper lobectomy and mediastinal lymphadenectomy (09/04/2012) -) Second primary-right upper lobe of lung: Nonresectable T2 N1 M0 non-small cell lung carcinoma favoring squamous cell carcinoma. Purpose of Visit: Discuss the role of radiotherapy with curative intent. History of Present Illness: The patient is a 63-year-old male with [id number] history of smoking (actively smoking) and a prior history of stage IB (T2a N0 M0) adenocarcinoma of the left upper lobe of lung treated on 09/04/2012 with a left upper lobectomy and mediastinal lymphadenectomy. After presenting to the hospital with back pain in July of 2019, a CT chest angiogram, as part of work-up to rule out pulmonary embolism, revealed a 3.8 cm right hilar mass with concern for invasion into the superior right pulmonary vein and 1.2 cm subcarinal lymphadenopathy. On 08/18/2019, a PET/CT revealed FDG avidity within a 2.8 cm perihilar right upper lobe mass, an FDG avid right hilar node measuring 2.5 cm, and a subcarinal lymph node without FDG activity. On 08/22/2019, the patient underwent bronchoscopy/EBUS with transbronchial ultrasound-guided fine-needle aspiration of a 10 R lymph node and the subcarinal lymph node. Pathology revealed non-small cell lung carcinoma, favoring squamous cell carcinoma in the 10 R lymph node, yet benign reactive lymph node findings were found in the subcarinal lymph node aspiration. In consultation today, he reports shortness of breath on exertion and a cough productive for clear sputum. The patient reports no other symptoms aside from anxiety associated with his diagnosis. Imaging Review: I reviewed the radiographic images discussed above. Current Medications: Benadryl Allergy, cetirizine HCl, diclofenac, gabapentin, lisinopril, oxyCODONE HCl, tamsulosin HCl. Allergies: PENICILLIN and Statins. Medical History: - Abdominal aortic aneurysm, - anxiety, - chronic obstructive pulmonary disease, - coronary artery disease, - degenerative arthritis, - depression, - dyslipidemia, - history of treated hepatitis C, - hypertension, - post traumatic stress disorder. No history of collagen vascular disease. No previous radiation therapy. Surgical History: Endograft repair of abdominal aortic aneurysm in 2010, left upper lobectomy on 09/04/2012, repair of abdominal aortic aneurysm and umbilical hernia repair. Family History: Father is at age 64 having experienced prostate cancer. Mother is at age 83 having experienced Brain aneurysm. Brother is at age 54 having experienced liver cancer. Paternal Grandfather is having experienced pancreatic cancer. Paternal Aunt is having experienced lung cancer. Maternal Uncle is at age 61 having experienced lymphoma. Father of prostate cancer at age 64. Mother with a cerebral aneurysm at age 83. A brother with liver cancer at age 56. His paternal grandfather had pancreatic cancer, a maternal uncle had lymphoma, and a paternal aunt had lung cancer. Social History: Last screened on 09/04/2019 - Current every day smoker 2.0 packs/day for 50 years (100 pack years). Last screened on 09/04/2019 - Active drinker 2 drinks/day 7 days/week. Patient indicated use of the following products: cigarettes. Patient indicated access to the following support systems: lives with spouse, significant other, family, or friends, lives in own house, supportive family/friends willing to assist with needs, and adequate transportation available for expected visits. Patient indicated the following nutritional habits: regular meals. Patient indicated participation in the following forms of activity: regular exercise. Current Complaints / Review of Systems: Constitutional - Complains of moderate fatigue. Denies lack of appetite, fever, night sweats, rigors / chills and change in weight. Eyes - Denies blurred vision, double vision and photophobia. ENMT - Denies dysphagia, ear pain, epistaxis, problems with hearing, mouth dryness, oral bleeding, sputum production, stomatitis, altered taste and tinnitus. Neck - Denies neck masses, neck pain, decreased range of motion and swelling of the neck. Integumentary - Complains of bruising easily. Denies dry skin, rash and urticaria. Cardiovascular - Complains of moderate dyspnea that occurs with activity which is progressively more frequent since onset which is relieved with treatment and this condition is worsening. Denies arrhythmias, chest pain, edema, orthopnea and palpitations. Respiratory - Complains of moderate dyspnea associated with more than usual activities that began within the last several months and this condition is worsening. Complains of moderate wheezing. Denies cough, hemoptysis, hiccoughs and pleuritic chest pain. Gastrointestinal - Denies abdominal pain, change in bowel habits, constipation, diarrhea, heartburn / dyspepsia, hematochezia, hemorrhoids, melena / GI bleeding, nausea, pain / cramping, satiety and vomiting. Genitourinary (M) - Complains of nocturia 1-3 times/night. Denies dysuria, frequency, hematuria, impotence, incontinence, urgency and urine color change. Musculoskeletal - Complains of joint pain due to old age arthritis. Complains of muscle weakness of the arms. Complains of decreased range of motion associated with pain stiffness to hips, knees, feet. Neurologic - Denies disorientation, dizziness, abnormal gait, headaches, insomnia, motor weakness, sensory problems, paralysis, seizure and stroke. Endocrine - Denies diabetes, hot flashes and thyroid disease. Hematologic/Lymphatic - Complains of easy bruising. Denies tender or enlarged lymph nodes.. Vital Signs: Performed on 09/24/2019 1:25 PM BMI - 31.496 kg/m2 (high), Height - 68.50 in, Weight - 210.2 lbs, Temperature - 98.3 f, Pulse - 77, Respiration - 18, O2 Sat - 98 % and BP - 123/ 76 mm(hg). Physical Exam: GENERAL:??? The patient is alert, and in no acute distress. HEENT:??? Head is normocephalic. Face is symmetric. External ocular movements are intact. Sclera and conjunctivae are non erythematous. NECK:??? Trachea is midline.??? Thyroid is not enlarged by palpation.??? LYMPH NODES:??? There is no cervical, supraclavicular, or axillary adenopathy bilaterally. LUNGS:??? Clear to auscultation bilaterally. Respiratory movement is unlabored. HEART:??? Regular rate and rhythm. EXTREMITIES:??? No deformities. NEUROLOGIC:??? Gait and station are normal.??? The patient is well coordinated and strength is equal bilaterally. SUPERVISOR OF OPERATIONS:??? Cranial nerves II-XII are intact and without focal deficits.??? Psych: Affect is normal. Skin: Cursory review of the skin reveals no obvious lesions concerning for malignancy. Performance Status: 1 - No physically strenuous activity, but ambulatory and able to carry out light or sedentary work (e.g. office work, light house work). (ECOG) Pathology: Primary, c34.01 - malignant neoplasm of right main bronchus, Diagnosed 09/10/2019 (active) stage iib, t2a, n1, m0 and Primary, c34.12 - malignant neoplasm of upper lobe, left bronchus or lung, Diagnosed 09/10/2019 (active) stage ib, t2a, n0, m0. Pain assessment: This patient???s pain was personally assessed by me. This patient requires no adjustments to pain medications at this time. Assessment/Plan: The patient is a 63-year-old male with a [id number] history of smoking and he now has a second primary non-small cell lung cancer. His first primary non-small cell lung cancer (adenocarcinoma) was in 2012 and treated with left upper lobectomy without adjuvant therapy. The patient now has a new primary non-small cell lung carcinoma (favoring squamous) originating in the right upper lobe of lung. He is staged as cT2 pN1 M0. Given his prior left upper lobectomy and underlying COPD, he is not suitable for surgical resection. Therefore it is recommended that the patient be treated with concurrent chemoradiation therapy consisting of weekly carbotaxol to an aggregate dose of 60 Gy in 30 fractions followed by consideration for immunotherapy as deemed appropriate by medical oncology. We discussed the curative treatment goals of radiotherapy, prognosis with and without radiation therapy, radiation treatment logistics, and potential acute and late side effects in detail. Furthermore, we had a candid discussion about the merits of smoking cessation, and smoking cessation counseling was provided. The patient verbalized understanding of the risks/benefits of radiotherapy and the patient has agreed to proceed as recommended. We will begin treatment planning on 09/25/2019. Signed by: Alen Oneil MD 09/25/2019 7:24:42 PM <<Signature on File>> Time spent with patient: CPT Code: CPT Code:
== END 2019-10-08 23:59 | disposition home or self-care (01) ==
LOC: ONCMED 05:45
PROVIDERS: Internal Medicine Medical Oncology; PCP Emergency Medicine Emergency Medical Services; Visit Provider Radiology Radiation Oncology
DX: Z51.0 Encounter for antineoplastic radiation therapy (principal); C34.12 Malignant neoplasm of upper lobe, left bronchus or lung; C34.11 Malignant neoplasm of upper lobe, right bronchus or lung; F41.9 Anxiety disorder, unspecified; J44.9 Chronic obstructive pulmonary disease, unspecified; I25.10 Atherosclerotic heart disease of native coronary artery without angina pectoris; F32.9 Major depressive disorder, single episode, unspecified; E78.5 Hyperlipidemia, unspecified; I10 Essential (primary) hypertension; F43.10 Post-traumatic stress disorder, unspecified
CPT/HCPCS: 77300; 77301; 77334; 77338; 77470; 80053; 85025; 99205

== ENCOUNTER 2019-10-03 10:53 | Day surgery (SDC) | payer OTHER, SELFPAY ==
[2019-10-02 15:44] VITALS: BMI 30.7
--- NOTE | 2019-10-03 | SCC_ITS ---
Procedure Done: Placement of PowerPort in the left subclavian vein Fluoroscopic guidance and interpretation for placement of catheter 41.5 seconds of fluoroscopic guidance, for a cumulative dose of 5.67 mGy, was provided to Dr. Brown by the radiology department. C-arm images of the chest were saved for the patient's permanent record. [facility]
--- NOTE | 2019-10-03 10:24 | W.PM.OPSUD ---
Surgery/Procedure H&P Update DATE OF PROCEDURE: October 03, 2019 DATE H&P PERFORMED: 10/02/19 H&P UPDATE INFORMATION: I have reviewed H&P completed within last 30 days, I have examined patient prior to procedure and No changes to prior documentation PREOP DIAGNOSIS: Lung Cancer PLANNED PROCEDURE: Operation Date: 10/03/19 12:15 Proposed Procedures p Portacath Placement 93943 C19(Not Applicable) - Justin Brown MD
[2019-10-03 11:08] VITALS: BP 150/79; PULSE 83; RESP 18; TEMP 36.2; O2SAT 90
[2019-10-03] MEDS: sodium chloride 0.9% 1,000 ML 30 ML IV (11:28)
[2019-10-03] MEDS: vancomycin 1,000 MG in sodium chloride 0.9% 250 ML 250 MG IV (11:28)
--- NOTE | 2019-10-03 11:35 | ANES.PREANE2 ---
Pre-Anesthetic Assessment Pre-Anesthetic Assessment: Height/Weight: Height 1.75 m Weight 95.254 kg Temp Pulse Resp BP Pulse Ox 97.2 F L 83 18 150/79 90 10/03/19 11:08 10/03/19 11:08 10/03/19 11:08 10/03/19 11:08 10/03/19 11:08 Preop Diagnosis: lung ca Proposed Procedure: Operation Date: 10/03/19 12:15 Proposed Procedures p Portacath Placement 51242 C19(Not Applicable) - Justin Brown MD Familial anesthetic complications: None Was Beta Gauri taken within 24 hours: N/A Last intake: Intake Last Liquid Date 10/03/19 Last Liquid Time 06:00 Last Solid Date 10/02/19 Last Solid Time 19:00 Social: Social History: Tobacco and No alcohol Exam: Pre-Anes Outpt Exam: alert, oriented x 3, clear to auscultation bilaterally and regular rate & rhythm Additional Exam Findings (including area of procedure): coarse b'/l breath souonds Airway: Cervical ROM: WNL MP: 3 Dentition: Other (missing ) Pulmonary: Pulmonary: COPD Comments: Lung cancer CV/HEM: CV/HEM: HTN and OK (20 years ago) : : None reported Hepatic: Hepatic: None reported GI: GI: None reported Metabolic: Metabolic: None reported Musc/skel: Musc/skel: OA/DJD Neuropsych: Neuropsych: None reported Anesthetic Plan: ASA status: 3 Anesthesia: MAC Risk of > 500 ml blood loss (7ml/kg in children): No Meds/Allergies Current Medications: Current Medications Generic Name Dose Route Start Last Admin Trade Name Freq PRN Reason Stop Dose Admin Vancomycin HCl 1,0 00 mg/ 250 mls @ 250 mls /hr 10/03/19 11:30 10/03/19 11:28 Sodium Chloride IV 10/03/19 12:29 250 mls/hr ONCE ONE Administration Protocol Sodium Chloride 1,000 mls @ 30 ml s/hr 10/03/19 11:00 10/03/19 11:28 Sodium Chloride 0.9% IV 10/04/19 10:59 30 mls/hr .Q24H AGUS Administration PFSH Anesthesia PFSH: Medical History (Updated 10/03/19 @ 10:51 by Justin Brown MD) Allergies Aortic aneurysm Arthritis COPD (chronic obstructive pulmonary disease) Heart attack History of hepatitis C HTN (hypertension) Port-A-Cath in place (10/03/19) Surgical History (Updated 10/03/19 @ 09:29 by Justin Brown MD) H/O aortic aneurysm repair H/O circumcision H/O colonoscopy 3 yrs ago H/O hernia repair S/P lobectomy of lung Family History Father Cancer Family/Other CAD (coronary artery disease) Cancer Grandfather Cancer Mother Brain aneurysm Denies family history of Anesthesia complication Bleeding disorder Social History Smoking and tobacco status: current every day smoker cigarettes Packs smoked per day: 2 Years cigarettes smoked: 50 Quit status (tobacco): has tried quititng Alcohol intake: current Alcohol intake frequency: 0-2 Drinks per Day Alcohol type: beer Lives independently: Yes Household members: spouse Marital status: service: Yes Current occupational status: disabled History of recent travel: No Current gender identity: Male Data Anesthesia Cardiac Studies: No Data to Display
--- NOTE | 2019-10-03 11:48 | SC_ITS ---
WS: [id number] INTRAOPERATIVE TECHNIQUE: 2 Spot fluoroscopic images for intraoperative purposes. FLUOROSCOPY TIME: 41.5 seconds CLINICAL INFORMATION: port a cath COMPARISON: None. FINDINGS: Left Port-A-Cath with tip difficult to visualize but appears to be in the mid to distal SVC. No pneum othorax. SC/C-arm FL for CVA 40470 IMPRESSION: Images obtained for intraoperative purposes.
[2019-10-03] MEDS: lidocaine 1% INJ 20 mL SUBCUT (11:55)
[2019-10-03] MEDS: heparin, porcine 1,000 unit/mL INJ 10 mL 10000 UNIT INJECTION (12:03)
--- NOTE | 2019-10-03 12:31 | PM.OP ---
Operative Report Date of procedure: October 03, 2019 Pre-op Diagnosis: lung ca Post-op diagnosis: same Procedure Done: Placement of PowerPort in the left subclavian vein Fluoroscopic guidance and interpretation for placement of catheter Pathology: none sent Surgeon: Justin Brown Anesthesia: MAC Condition: stable Disposition: same day Procedure: The patient was taken to the Operating Room and the chest and neck bilaterally were prepped and draped in a sterile manner after the antibiotic had been administered and shoulder rolls had been placed. A total of 10 mL of 1% lidocaine with 0.5% Marcaine was infiltrated under the clavicle on the left side at the site of the planned entry into the subclavian vein. An introducer needle was then used to access the subclavian vein under the clavicle and after withdrawing blood syringe was removed and a guidewire passed under fluoroscopy into the superior vena cava. The site of the planned port was then marked on the chest and a 15 blade was used to make a 3 cm skin incision this was extended into the subcutaneous tissue using electrocautery and a subcutaneous pocket over the pectoralis fascia was created 2-0 Vicryl suture was used to suture the port to the pectoral fascia in the pocket on 3 sides. The catheter, after having been flushed with hep saline, was attached to the tunneler and a tunnel created between the port site and the subclavian vein entry site. Under fluoroscopy the dilator sheath was passed over the guidewire into the proximal superior vena cava. The inner dilator was removed and the sheath left behind and~ the catheter was introduced through the peel-away sheath with the tip in the superior vena cava. The peel-away sheath was removed. The proximal end of the catheter was cut to the right size and was attached to the port. Using a Lopez needle the port was accessed, it withdrew blood easily and flushed easily. A final 5cc of heparin was used to flush the PowerPort. The subcutaneous tissue was approximated using interrupted 3-0 Vicryl sutures and the skin at the introducer site and the port site was closed using subcuticular running 4-0 Monocryl sutures. Surgical glue was applied and the patient was stable throughout the procedure. Fluoroscopic guidance and interpretation was performed for introduction of the guidewire in the left subclavian vein, passage of dilator and placement of catheter tip in the distal superior vena cava.
[2019-10-03 12:38] VITALS: BP 115/75; PULSE 91; RESP 16; TEMP 36.4; O2SAT 93
[2019-10-03 13:01] VITALS: BP 127/76; PULSE 73; RESP 18; TEMP 36.7; O2SAT 94
[2019-10-03 15:25] LABS: Hepatitis B Surface AB 3.5 (0-8.5); Hepatitis B Surface Antigen Non-Reactive (Nonreactive); Hepatitis C Virus Antibody Reactive (Nonreactive)
[2019-10-03 15:29] LABS: HIV 1 & 2 Antibody Non-Reactive (Non-Reactiv); HIV 1 & 2 Antigen Non-Reactive (Non-Reactiv)
== END 2019-10-03 13:31 | disposition home or self-care (01) ==
LOC: OR 10:53
PROVIDERS: PCP Emergency Medicine Emergency Medical Services; Visit Provider Surgery
PROC: (CPT 36561; principal; 2019-10-03 12:15)
DX: C34.90 Malignant neoplasm of unspecified part of unspecified bronchus or lung (principal); J44.9 Chronic obstructive pulmonary disease, unspecified; I10 Essential (primary) hypertension; M19.90 Unspecified osteoarthritis, unspecified site; I25.2 Old myocardial infarction; F17.210 Nicotine dependence, cigarettes, uncomplicated
CPT/HCPCS: 36561; 12345; 77001; 86706; 86803; 87340; 87806; 96365; C1788; J1644; J2704; J3010; J3370; J3490; J7030; J7050

== ENCOUNTER 2019-11-07 05:43 | Outpatient (RCR) | payer OTHER, SELFPAY ==
[2019-10-09 10:45] LABS: Basophils % 0.3 %; Hematocrit 45.9 % (42.0-52.0); Lymphocytes # 0.7 10^3/uL (0.8-4.8); Lymphocytes % 11.2 %; Mean Corpuscular HGB Conc 32.7 g/dL (30.0-36.0); Mean Corpuscular Hemoglobin 31.1 pg (28.0-34.0); Mean Corpuscular Volume 95.2 fL (80-94); Mean Platelet Volume 9.9 fL (7.4-10.4); Monocytes % 0.3 %; Neutrophils # 5.07 10^3/uL (1.8-7.7); Neutrophils % 87.9 %; Nucleated Red Blood Cells % 0 %; Platelet Count 283 10^3/cmm (130-400); Red Blood Count 4.82 10^6/uL (4.1-5.3); Red Cell Distribution Width 12.3 % (12.1-15.1); White Blood Count 5.8 10^3/uL (4.0-10.0)
[2019-10-09 11:04] LABS: Alanine Aminotransferase 15 U/L (0-41); Albumin Level 4.3 g/dL (3.5-5.2); Alkaline Phosphatase 81 IU/L (40-130); Anion Gap 17.1 (5-19); Aspartate Amino Transferase 21 U/L (0-40); Blood Urea Nitrogen 10 mg/dL (8-23); Calcium 10.1 mg/dL (8.5-10.5); Carbon Dioxide 26 mmol/L (22-29); Chloride 101 mmol/L (98-107); Glomerular Filtration Rate 84.7 mL/min (90-130); Glucose 286 mg/dL (65-115); Osmolality Calculated 296 mOsm/kg (285-295); Potassium 4.1 mmol/L (3.5-5.1); Sodium 140 mmol/L (136-145); Total Bilirubin 0.3 mg/dL (0.15-1.2); Total Protein 8.3 g/dL (6.6-8.7)
[2019-10-09] MEDS: sodium chloride 0.9% 250 ML 75 ML IV (11:50)
--- NOTE | 2019-10-09 16:04 | ONCRAD TMN_ITS ---
Radiation Oncology Weekly Treatment Management Patient: Painter Covarrubias MR#: [id number] : 1955 Age: 63 Sex: Male Dictated by: Dr. Alen Oneil Date of Service: 10/09/2019 Referring Physician(s) : Eugenio Weiss M.D. Diagnosis: -) Left upper lobe of lung: T2 aN0 M0 adenocarcinoma status post left upper lobectomy and mediastinal lymphadenectomy (09/04/2012) -) Second primary-right upper lobe of lung: Nonresectable T2 N1 M0 non-small cell lung carcinoma favoring squamous cell carcinoma. Planned treatment: Weekly carbotaxol concurrent with definitive radiation therapy to a total dose of 60 Gy in 30 fractions. Radiotherapy to date: Course: RT Lung [id number], Treatment Site: RT Lung 60Gy, Ref. ID: [id number], Energy: 6X, Dose/Fx (cGy): 200, #Fx: , Dose Correction (cGy): 0, Total Dose (cGy): 200, Start Date: 10/09/2019, Elapsed Days: 0 Reason for visit: The patient is being seen today as part of their regularly scheduled weekly on treatment visits to assess for acute toxicities from radiotherapy. Interim History: The patient reports no acute side effects from treatment thus far. Current Medications: Benadryl Allergy, cARBOplatin, cetirizine HCl, dexamethasone, dexamethasone Sodium Phosphate, diclofenac, diphenhydrAMINE HCl, famotidine in NaCl, gabapentin, lisinopril, lORazepam, oxyCODONE HCl, pACLitaxel, palonosetron HCl, prochlorperazine Maleate, tamsulosin HCl. Allergies: PENICILLIN and Statins. Vital Signs: Performed on 10/09/2019 3:13 PM Height - 68.50 in, Temperature - 99.0 f (high), Pulse - 81 /min, Respiration - 18 /min, O2 Sat - 91 % (low), Pain - 0, BP - 153/ 77 mm(hg)(high/), Performed on 10/09/2019 3:24 PM Height - 68.50 in, Temperature - 99.0 f, Pulse - 81, Respiration - 18, O2 Sat - 91 % (low), Pain - 0 and BP - 153/ 77 mm(hg)(high/). Physical Exam: Appears stable, no skin erythema or desquamation. Lungs are clear to auscultation bilaterally. Performance Status: 1 - No physically strenuous activity, but ambulatory and able to carry out light or sedentary work (e.g. office work, light house work). (ECOG) Lab: None pending in Radiation Oncology. Test performed on 10/09/2019 10:27 AM MCV - 95.2 fl (high), Lymphocytes - 0.7 10 3/ul (low), Monocytes - 0.0 10 3/ul (low), eGFR - 84.7 ml/min (low) and Glucose - 286 mg/dl (high). Imaging: Radiation therapy imaging related to accurate target localization (i.e. KV, MV and CBCT) was reviewed. Appropriate changes, if any, were made to ensure treatment accuracy. Plan: The patient is tolerating therapy reasonably well. Radiotherapy will continue as planned. CPT: 38402 Signed by: Dr. Alen Oneil 10/09/2019 4:02:48 PM
[2019-10-12] MEDS: sodium chloride 0.9% 1,000 ML 999 ML IV (09:25)
[2019-10-12 09:55] LABS: Basophils % 0.3 %; Eosinophils # 0.1 10^3/uL (0.0-0.8); Eosinophils % 0.6 %; Hematocrit 42.3 % (42.0-52.0); Hemoglobin 13.4 g/dL (11.7-16.6); Lymphocytes # 1.1 10^3/uL (0.8-4.8); Lymphocytes % 11.2 %; Mean Corpuscular HGB Conc 31.7 g/dL (30.0-36.0); Mean Corpuscular Hemoglobin 31.1 pg (28.0-34.0); Mean Corpuscular Volume 98.1 fL (80-94); Mean Platelet Volume 10.8 fL (7.4-10.4); Monocytes # 0.3 10^3/uL (0.2-0.9); Monocytes % 3.1 %; Neutrophils # 8.43 10^3/uL (1.8-7.7); Neutrophils % 84.4 %; Nucleated Red Blood Cells % 0 %; Platelet Count 184 10^3/cmm (130-400); Red Blood Count 4.31 10^6/uL (4.1-5.3); Red Cell Distribution Width 12.4 % (12.1-15.1)
[2019-10-12 10:22] LABS: Alanine Aminotransferase 11 U/L (0-41); Albumin Level 3.8 g/dL (3.5-5.2); Alkaline Phosphatase 68 IU/L (40-130); Anion Gap 12.8 (5-19); Aspartate Amino Transferase 15 U/L (0-40); Blood Urea Nitrogen 13 mg/dL (8-23); Calcium 8.3 mg/dL (8.5-10.5); Carbon Dioxide 26 mmol/L (22-29); Chloride 98 mmol/L (98-107); Globulin 3.4 g/dL (1.3-4.6); Glomerular Filtration Rate 113.2 mL/min (90-130); Glucose 167 mg/dL (65-115); Osmolality Calculated 276 mOsm/kg (285-295); Potassium 3.8 mmol/L (3.5-5.1); Sodium 133 mmol/L (136-145); Total Bilirubin 0.7 mg/dL (0.15-1.2); Total Protein 7.2 g/dL (6.6-8.7)
[2019-10-16 14:35] LABS: Basophils % 0.4 %; Hematocrit 41.1 % (42.0-52.0); Lymphocytes # 0.3 10^3/uL (0.8-4.8); Lymphocytes % 13.3 %; Mean Corpuscular HGB Conc 31.6 g/dL (30.0-36.0); Mean Corpuscular Hemoglobin 30.5 pg (28.0-34.0); Mean Corpuscular Volume 96.5 fL (80-94); Mean Platelet Volume 10.4 fL (7.4-10.4); Monocytes # 0.1 10^3/uL (0.2-0.9); Monocytes % 3.2 %; Neutrophils # 2.05 10^3/uL (1.8-7.7); Neutrophils % 82.3 %; Nucleated Red Blood Cells % 0 %; Platelet Count 225 10^3/cmm (130-400); Red Blood Count 4.26 10^6/uL (4.1-5.3); Red Cell Distribution Width 12.4 % (12.1-15.1); White Blood Count 2.5 10^3/uL (4.0-10.0)
[2019-10-16 14:55] LABS: Alanine Aminotransferase 29 U/L (0-41); Albumin Level 3.8 g/dL (3.5-5.2); Alkaline Phosphatase 84 IU/L (40-130); Anion Gap 17.1 (5-19); Aspartate Amino Transferase 25 U/L (0-40); Blood Urea Nitrogen 16 mg/dL (8-23); Calcium 8.8 mg/dL (8.5-10.5); Carbon Dioxide 24 mmol/L (22-29); Chloride 99 mmol/L (98-107); Globulin 3.9 g/dL (1.3-4.6); Glomerular Filtration Rate 67.2 mL/min (90-130); Glucose 408 mg/dL (65-115); Osmolality Calculated 296 mOsm/kg (285-295); Potassium 4.1 mmol/L (3.5-5.1); Sodium 136 mmol/L (136-145); Total Bilirubin 0.3 mg/dL (0.15-1.2); Total Protein 7.7 g/dL (6.6-8.7)
--- NOTE | 2019-10-16 17:23 | ONCRAD TMN_ITS ---
Radiation Oncology Weekly Treatment Management Patient: Painter Covarrubias MR#: [id number] : 1955 Age: 63 Sex: Male Dictated by: Dr. Alen Oneil Date of Service: 10/16/2019 Referring Physician(s) : Eugenio Weiss M.D. Diagnosis: -) Left upper lobe of lung: T2 aN0 M0 adenocarcinoma status post left upper lobectomy and mediastinal lymphadenectomy (09/04/2012) -) Second primary-right upper lobe of lung: Nonresectable T2 N1 M0 non-small cell lung carcinoma favoring squamous cell carcinoma. Planned treatment: Weekly carbotaxol concurrent with definitive radiation therapy to a total dose of 60 Gy in 30 fractions. Radiotherapy to date: Course: RT Lung [id number], Treatment Site: RT Lung 60Gy, Ref. ID: [id number], Energy: 6X, Dose/Fx (cGy): 200, #Fx: 30, Dose Correction (cGy): 0, Total Dose (cGy): 1,000, Start Date: 10/09/2019, Elapsed Days: 7 Reason for visit: The patient is being seen today as part of their regularly scheduled weekly on treatment visits to assess for acute toxicities from radiotherapy. Interim History: The patient's weight is down 6.4 pounds. He reports significant altered taste. He also has a persistent cough productive for clear sputum. He reports no progressive shortness of breath. Current Medications: Benadryl Allergy, cARBOplatin, cetirizine HCl, dexamethasone, dexamethasone Sodium Phosphate, diclofenac, diphenhydrAMINE HCl, famotidine in NaCl, gabapentin, lisinopril, lORazepam, oxyCODONE HCl, pACLitaxel, palonosetron HCl, prochlorperazine Maleate, tamsulosin HCl. Allergies: PENICILLIN and Statins. Current Complaints/Review of Systems: Constitutional - Complains of lack of appetite due to nothing tastes good. Complains of moderate fatigue. Complains of night sweats which occur occasionally. Complains of change in weight down 6.4 lbs. since last OTV. Denies fever. ENMT - Complains of altered taste. Denies dysphagia. Cardiovascular - Denies chest pain and edema. Respiratory - Complains of a moderate cough which is productive and has clear sputum. Complains of moderate dyspnea associated with normal activity. Complains of mild wheezing. Denies hemoptysis. Vital Signs: Performed on 10/16/2019 1:34 PM BMI - 30.297 kg/m2 (high), Height - 68.50 in, Weight - 202.2 lbs, Temperature - 98.7 f, Pulse - 97, Respiration - 20, O2 Sat - 93 % (low), Pain - 0 and BP - 137/ 65 mm(hg). Physical Exam: Appears stable, no skin erythema or desquamation. . Lungs are clear to auscultation bilaterally Performance Status: 1 - No physically strenuous activity, but ambulatory and able to carry out light or sedentary work (e.g. office work, light house work). (ECOG) Lab: None pending in Radiation Oncology. Test performed on 10/09/2019 10:27 AM MCV - 95.2 fl (high), Lymphocytes - 0.7 10 3/ul (low), Monocytes - 0.0 10 3/ul (low), eGFR - 84.7 ml/min (low) and Glucose - 286 mg/dl (high). Imaging: Radiation therapy imaging related to accurate target localization (i.e. KV, MV and CBCT) was reviewed. Appropriate changes, if any, were made to ensure treatment accuracy. Plan: The patient is tolerating therapy reasonably well. Radiotherapy will continue as planned. CPT: 81855 Signed by: Dr. Alen Oneil 10/16/2019 5:21:47 PM
[2019-10-22 12:25] LABS: Basophils % 0.5 %; Eosinophils # 0.1 10^3/uL (0.0-0.8); Eosinophils % 1.8 %; Hematocrit 42.6 % (42.0-52.0); Hemoglobin 13.4 g/dL (11.7-16.6); Lymphocytes # 1.5 10^3/uL (0.8-4.8); Lymphocytes % 25.1 %; Mean Corpuscular HGB Conc 31.5 g/dL (30.0-36.0); Mean Corpuscular Hemoglobin 30.3 pg (28.0-34.0); Mean Corpuscular Volume 96.4 fL (80-94); Mean Platelet Volume 9.3 fL (7.4-10.4); Monocytes # 0.5 10^3/uL (0.2-0.9); Monocytes % 8.4 %; Neutrophils % 63.7 %; Nucleated Red Blood Cells % 0 %; Platelet Count 250 10^3/cmm (130-400); Red Blood Count 4.42 10^6/uL (4.1-5.3); Red Cell Distribution Width 12.6 % (12.1-15.1)
[2019-10-22 14:03] LABS: Alanine Aminotransferase 18 U/L (0-41); Albumin Level 3.9 g/dL (3.5-5.2); Alkaline Phosphatase 73 IU/L (40-130); Anion Gap 15.9 (5-19); Aspartate Amino Transferase 22 U/L (0-40); Blood Urea Nitrogen 7 mg/dL (8-23); Carbon Dioxide 25 mmol/L (22-29); Chloride 96 mmol/L (98-107); Globulin 3.7 g/dL (1.3-4.6); Glucose 200 mg/dL (65-115); Osmolality Calculated 277 mOsm/kg (285-295); Potassium 3.9 mmol/L (3.5-5.1); Sodium 133 mmol/L (136-145); Total Bilirubin 0.5 mg/dL (0.15-1.2); Total Protein 7.6 g/dL (6.6-8.7)
[2019-10-22] MEDS: sodium chloride 0.9% 250 ML 75 ML IV (14:25)
--- NOTE | 2019-10-24 16:16 | ONCRAD TMN_ITS ---
Radiation Oncology Weekly Treatment Management Patient: Satish Fry MR#: [id number] : 1955 Age: 63 Sex: Male Dictated by: Dr. Alen Oneil Date of Service: 10/23/2019 Referring Physician(s) : Eugenio Weiss M.D. Diagnosis: C34.01 - Malignant neoplasm of right main bronchus, Diagnosed 09/10/2019 (Active) Stage IIB, T2a, N1, M0 C34.12 - Malignant neoplasm of upper lobe, left bronchus or lung, Diagnosed 09/10/2019 (Active) Stage IB, T2a, N0, M0 Diagnosis: -) Left upper lobe of lung: T2 aN0 M0 adenocarcinoma status post left upper lobectomy and mediastinal lymphadenectomy (09/04/2012) -) Second primary-right upper lobe of lung: Nonresectable T2 N1 M0 non-small cell lung carcinoma favoring squamous cell carcinoma. Planned treatment: Weekly carbotaxol concurrent with definitive radiation therapy to a total dose of 60 Gy in 30 fractions. Radiotherapy to date: Course: RT Lung [id number], Treatment Site: RT Lung 60Gy, Ref. ID: [id number], Energy: 6X, Dose/Fx (cGy): 200, #Fx: 10 / 30, Dose Correction (cGy): 0, Total Dose (cGy): 2,000, Start Date: 10/09/2019, Elapsed Days: 14 Reason for visit: The patient is being seen today as part of their regularly scheduled weekly on treatment visits to assess for acute toxicities from radiotherapy. Interim History: The patient reports dysgeusia, and diminished appetite. His weight is down 5.8 pounds. He continues to have a mild cough productive for clear sputum. Current Medications: Abraxane, benadryl Allergy, cARBOplatin, cetirizine HCl, dexamethasone, dexamethasone Sodium Phosphate, diclofenac, diphenhydrAMINE HCl, famotidine in NaCl, gabapentin, lisinopril, lORazepam, oxyCODONE HCl, palonosetron HCl, prochlorperazine Maleate, tamsulosin HCl. Allergies: PENICILLIN and Statins. Current Complaints/Review of Systems: Constitutional - Complains of lack of appetite. Complains of mild fatigue. Complains of change in weight in which he is down 5.8 lbs. since last OTV.. Denies fever. ENMT - Complains of altered taste. Denies dysphagia. Cardiovascular - Denies chest pain. Respiratory - Complains of a mild cough which is productive. Complains of mild wheezing. Denies hemoptysis. Vital Signs: Performed on 10/23/2019 1:22 PM BMI - 30.567 kg/m2 (high), Height - 68.50 in, Weight - 204.0 lbs, Temperature - 96.9 f, Pulse - 90, Respiration - 20, O2 Sat - 95 % (low), Pain - 0 and BP - 129/ 73 mm(hg). Physical Exam: Appears stable, no skin erythema or desquamation. Lungs are clear to auscultation bilaterally. Performance Status: 1 - No physically strenuous activity, but ambulatory and able to carry out light or sedentary work (e.g. office work, light house work). (ECOG) Lab: None pending in Radiation Oncology. Test performed on 10/22/2019 12:10 PM MCV - 96.4 fl (high), Sodium - 133 mmol/l (low), Chloride - 96 mmol/l (low), BUN - 7 mg/dl (low) and Glucose - 200 mg/dl (high). Imaging: Radiation therapy imaging related to accurate target localization (i.e. KV, MV and CBCT) was reviewed. Appropriate changes, if any, were made to ensure treatment accuracy. Plan: The patient is tolerating therapy reasonably well. Radiotherapy will continue as planned. CPT: 05157 Signed by: Dr. Alne Oneil 10/24/2019 4:15:00 PM
[2019-10-29 08:54] LABS: Basophils % 0.8 %; Eosinophils # 0.1 10^3/uL (0.0-0.8); Eosinophils % 1.7 %; Hematocrit 42.4 % (42.0-52.0); Hemoglobin 13.5 g/dL (11.7-16.6); Lymphocytes # 1.2 10^3/uL (0.8-4.8); Lymphocytes % 24.4 %; Mean Corpuscular HGB Conc 31.8 g/dL (30.0-36.0); Mean Corpuscular Hemoglobin 30.5 pg (28.0-34.0); Mean Corpuscular Volume 95.7 fL (80-94); Mean Platelet Volume 9.8 fL (7.4-10.4); Monocytes # 0.5 10^3/uL (0.2-0.9); Monocytes % 10.1 %; Neutrophils # 2.98 10^3/uL (1.8-7.7); Neutrophils % 62.6 %; Nucleated Red Blood Cells % 0 %; Platelet Count 185 10^3/cmm (130-400); Red Blood Count 4.43 10^6/uL (4.1-5.3); Red Cell Distribution Width 12.6 % (12.1-15.1); White Blood Count 4.8 10^3/uL (4.0-10.0)
[2019-10-29 09:07] LABS: Alanine Aminotransferase 14 U/L (0-41); Alkaline Phosphatase 67 IU/L (40-130); Anion Gap 15.1 (5-19); Aspartate Amino Transferase 16 U/L (0-40); Blood Urea Nitrogen 8 mg/dL (8-23); Calcium 9.8 mg/dL (8.5-10.5); Carbon Dioxide 25 mmol/L (22-29); Chloride 100 mmol/L (98-107); Globulin 3.5 g/dL (1.3-4.6); Glucose 165 mg/dL (65-115); Osmolality Calculated 284 mOsm/kg (285-295); Potassium 4.1 mmol/L (3.5-5.1); Sodium 136 mmol/L (136-145); Total Bilirubin 0.3 mg/dL (0.15-1.2); Total Protein 7.5 g/dL (6.6-8.7)
[2019-10-29] MEDS: sodium chloride 0.9% 250 ML 300 ML IV (12:30)
--- NOTE | 2019-10-30 07:56 | ONC FU_ITS ---
Dr. Grissom Patient Follow-Up Note Patient: Satish Fry Unit #: [id number]: 1955 Dicatated By: Gino Grissom M.D.Date of Visit:Oct 29, 2019 Onc Med Follow-up/Prog Note Chief Complaint: Lung cancer. History of Present Illness: This is a 63 year-old man with non-small cell lung cancer. On 09/04/2012 he underwent left upper lobectomy with mediastinal lymphadenectomy for grade 3/4 adenocarcinoma, stage IB (T2a, N0, M0). The primary tumor measured 3.1 x 3.0 x 2.6 cm. There was no involvement in a total of 14 lymph nodes. I had seen him for medical oncology consultation on 09/28/2012. He received no further treatment, as there appeared to be no indication for postoperative chemotherapy or radiation. On 07/20/2019 he had presented to the emergency room with chest pain and shortness of breath. His CT pulmonary angiogram showed no evidence of pulmonary embolism. However, he was noted to have a 3.3 x 3.8 cm right hilar mass encasing the central right bronchopulmonary structures. There was invasion into the superior right pulmonary vein. There was additional subcarinal lymph node measuring 1.2 cm. Groundglass attenuation along the right minor fissure appeared compatible with either pneumonitis or lymphangitic spread of tumor. Staging PET/CT on 08/18/2019 showed perihilar mass in the right upper lobe measuring 2.8 cm in diameter with SUV 13.5, consistent with malignancy. A secondary right hilar lymph node measuring 1.4 x 2.5 cm with SUV 9.5, consistent with metastatic disease. The subcarinal lymph node did not demonstrate significant FDG activity and other mediastinal lymph nodes appeared radiographically benign and FDG negative. On 08/22/2019 he underwent bronchoscopy/EBUS with transbronchial needle aspiration biopsy of station 7 and station 10R lymph nodes. There were no endobronchial lesions identified. Pathology on the station 7 lymph node showed benign reactive lymph node with no evidence of dysplastic or neoplastic process. The 10R lymph node showed metastatic non-small cell carcinoma favoring squamous cell carcinoma. On 10/09/2019 he began radiation concurrently with weekly carboplatin/paclitaxel chemotherapy. His initial treatment was complicated by significant hyperglycemia and anxiety associated with the steroid premedication. His week 2 treatment was held due to neutropenia. He continued chemotherapy on 10/22/2019 with his treatment changed to carboplatin/Abraxane. He is seen for a follow-up visit. He tolerated the chemotherapy much better with the Abraxane substituted for the paclitaxel. He has had some decline in his energy, but he is still doing light work. ECOG score is 1. His appetite comes and goes. He has lost a little weight. He does not have fever or night sweats. He says his breathing is getting better, as he has cut back on his smoking, now to the point that he is on the verge of quitting. He still has cough productive of clear sputum. He does not complain of chest pain. He had one episode of nausea following his last treatment. He is having some heartburn. Bowel and bladder function have been okay. He has fairly generalized joint pain and he also has back pain, but that is not new. He does not complain of headache or dizziness. He has no numbness/paresthesia or other neuropathy symptoms. Medications: Benadryl Allergy 1 Tablet (of 25 mg) Oral daily PRN, Cetirizine HCl 1 Tablet (of 10 mg) Oral daily, Diclofenac 1 Capsule Oral daily PRN, Gabapentin 1 (300 mg) Capsule Oral t.i.d., Lisinopril 1 Tablet (of 5 mg) Oral daily, oxyCODONE HCl 1 Tablet (of 5 mg) Oral t.i.d. PRN, Tamsulosin HCl 1 Capsule (of 0.4 mg) Oral daily, Vitamin D 2 Capsule Oral daily Allergies: PENICILLIN and Statins. Review of Systems: Constitutional - He has had some decline in his energy, but he is still able to do light work. His appetite comes and goes. He has lost a little weight. He does not have fever or night sweats. ECOG score is 1, ENMT - He always has sinus drainage. No mouth sores. No sore throat or difficulty swallowing, Hematologic/Lymphatic - No abnormal bruising or bleeding, Respiratory - His breathing is better, as he has cut back on smoking, now to the point he is on the verge of quitting. He has cough productive of clear sputum. No pleuritic pain or hemoptysis, Cardiovascular - No angina pain. No palpitations, Gastrointestinal - He had 1 episode of nausea after his last treatment. He is having some heartburn. No diarrhea or constipation. No blood in the stool or black stools, Genitourinary (M) - No dysuria or hematuria. No urinary frequency. No urgency or incontinence, Musculoskeletal - His has fairly generalized joint pain including the hips, knees, and feet. He also has back pain, Integumentary - No skin rash, Neurologic - No headache or dizziness. No numbness or tingling. No other focal neurologic symptoms, Psychiatric - No anxiety or depression. No insomnia. Vital Signs: Performed on Oct 29, 2019 10:09 Height - 68.50 in Weight - 203.4 lbs (LOW) BSA - 2.07 sq.m BMI - 30.48 (HIGH) Temperature - 97.9 F (LOW) Pulse - 93 /min Respiration - 18 /min BP - 105/49 mm(hg) O2 Sat - 95 % (LOW) Pain - 0 Physical Examination: Constitutional - He looks pretty good generally, Eyes - Sclerae nonicteric. Conjunctivae clear, ENMT - No lesions noted in the oral cavity, Hematologic/Lymphatic - No cervical, clavicular, or axillary adenopathy, Respiratory - Lungs are clear with diminished air movement bilaterally, Cardiovascular - Heart rhythm is regular. There is no murmur, gallop, or rub noted, Abdomen - Moderately distended. Liver and spleen are not enlarged. There is no abdominal mass or ascites noted and there is no inguinal adenopathy, Extremities - No edema, Integumentary - No skin eruption, Neurologic - No focal neurologic deficits noted. Lab/Imaging: Test performed on Oct 29, 2019 08:35 Sodium 136 mmol/L Potassium 4.1 mmol/L Chloride 100 mmol/L CO2 25 mmol/L Anion Gap 15.1 BUN 8 mg/dL eGFR 97.0 mL/min Glucose 165 mg/dL Osmolality - Calculated 284 mOsm/kg Calcium 9.8 mg/dL Protein, Total 7.5 g/dL Albumin 4.0 g/dL Globulin 3.5 g/dL Bilirubin, Total 0.3 mg/dL ALT (SGPT) 14 U/L AST (SGOT) 16 U/L Alkaline Phosphatase 67 IU/L WBC 4.8 10 3/uL RBC 4.43 10 6/uL HGB 13.5 g/dL HCT 42.4 % MCV 95.7 fL MCH 30.5 pg MCHC 31.8 g/dL RDW 12.6 % Platelet Count 185 10 3/cmm MPV 9.8 fL Neutrophils 2.98 10 3/uL Lymphocytes 1.2 10 3/uL Monocytes 0.5 10 3/uL Eosinophils 0.1 10 3/uL Basophils 0.0 10 3/uL Neutrophil % 62.6 % Lymphocyte % 24.4 % Monocyte % 10.1 % Eosinophil % 1.7 % Basophils % 0.8 % NRBC % 0 % Impression: 1. Patient with grade 3/4 adenocarcinoma involving the upper lobe of the left lung, stage IB (T2a, N0, M0), for which he underwent thoracotomy with left upper lobectomy and mediastinal lymphadenectomy on 09/04/2012. 2. He now has biopsy-proven non-small cell carcinoma involving her right hilar mass. Pathology favored squamous cell carcinoma. Given the interval from his surgery, the location of the mass, and the histology, that appears to be most likely a second primary malignancy. By PET/CT there appears to be additional right hilar adenopathy so that by clinical evaluation his disease appears to be stage IIB (T2a, N1, M0). His other medical illnesses include: 3. COPD. 4. Hypertension. 5. Dyslipidemia. 6. Coronary artery disease with previous myocardial infarction. 7. Degenerative arthritis. 8. History of treated hepatitis C. 9. History of abdominal aortic aneurysm for which he underwent endograft repair in 2010. 10. Posttraumatic stress disorder with anxiety/depression. He began radiation, concurrently with weekly carboplatin/paclitaxel on 10/09/2019. His initial chemotherapy treatment was complicated by hyperglycemia and anxiety associated with the steroid premedication. His week 2 treatment was deferred due to neutropenia. He then continued with his treatment on 10/22/2019 with Abraxane substituted for the paclitaxel, and thus far he seems to be tolerating that much better. Plan: He will proceed now with his week 3 chemotherapy infusion with the carboplatin/Abraxane combination at the same dosages. With his blood pressure relatively low, he is to stop taking lisinopril. I also recommend that he start taking his omeprazole on a regular basis. He returns in 1 week. Signed By: Gino Grissom M.D. <<Signature on File>>
[2019-11-05 08:31] LABS: Basophils % 0.7 %; Eosinophils # 0.1 10^3/uL (0.0-0.8); Eosinophils % 2.4 %; Hematocrit 40.7 % (42.0-52.0); Hemoglobin 12.9 g/dL (11.7-16.6); Lymphocytes # 0.9 10^3/uL (0.8-4.8); Lymphocytes % 21.4 %; Mean Corpuscular HGB Conc 31.7 g/dL (30.0-36.0); Mean Corpuscular Hemoglobin 30.3 pg (28.0-34.0); Mean Corpuscular Volume 95.5 fL (80-94); Mean Platelet Volume 9.8 fL (7.4-10.4); Monocytes # 0.3 10^3/uL (0.2-0.9); Neutrophils # 2.84 10^3/uL (1.8-7.7); Neutrophils % 66.8 %; Nucleated Red Blood Cells % 0 %; Platelet Count 93 10^3/cmm (130-400); Red Blood Count 4.26 10^6/uL (4.1-5.3); Red Cell Distribution Width 12.8 % (12.1-15.1); White Blood Count 4.3 10^3/uL (4.0-10.0)
[2019-11-05 08:55] LABS: Alanine Aminotransferase 15 U/L (0-41); Alkaline Phosphatase 63 IU/L (40-130); Anion Gap 12.8 (5-19); Aspartate Amino Transferase 18 U/L (0-40); Blood Urea Nitrogen 11 mg/dL (8-23); Calcium 8.7 mg/dL (8.5-10.5); Carbon Dioxide 25 mmol/L (22-29); Chloride 105 mmol/L (98-107); Globulin 3.1 g/dL (1.3-4.6); Glomerular Filtration Rate 134.8 mL/min (90-130); Glucose 117 mg/dL (65-115); Osmolality Calculated 288 mOsm/kg (285-295); Potassium 3.8 mmol/L (3.5-5.1); Sodium 139 mmol/L (136-145); Total Bilirubin 0.3 mg/dL (0.15-1.2); Total Protein 7.1 g/dL (6.6-8.7)
[2019-11-05] MEDS: sodium chloride 0.9% 250 ML 75 ML IV (11:10)
--- NOTE | 2019-11-08 09:00 | ONCRAD TMN_ITS ---
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 Alen Oneil Date of Service: 11/06/2019 Referring Physician(s) : Eugenio Weiss M.D. Diagnosis: C34.01 - Malignant neoplasm of right main bronchus, Diagnosed 09/10/2019 (Active) Stage IIB, T2a, N1, M0 C34.12 - Malignant neoplasm of upper lobe, left bronchus or lung, Diagnosed 09/10/2019 (Active) Stage IB, T2a, N0, M0 Diagnosis: -) Left upper lobe of lung: T2 aN0 M0 adenocarcinoma status post left upper lobectomy and mediastinal lymphadenectomy (09/04/2012) -) Second primary-right upper lobe of lung: Nonresectable T2 N1 M0 non-small cell lung carcinoma favoring squamous cell carcinoma. Planned treatment: Weekly carbotaxol concurrent with definitive radiation therapy to a total dose of 60 Gy in 30 fractions. Radiotherapy to date: Course: RT Lung [id number], Treatment Site: RT Lung 60Gy, Ref. ID: [id number], Energy: 6X, Dose/Fx (cGy): 200, #Fx: 20 / 30, Dose Correction (cGy): 0, Total Dose (cGy): 4,000, Start Date: 10/09/2019, Elapsed Days: 28 Reason for visit: The patient is being seen today as part of their regularly scheduled weekly on treatment visits to assess for acute toxicities from radiotherapy. Interim History: The patient reports a cough productive for yellow sputum, but he reports no malaise or fever/chills. He reports mild fatigue, and no progressive shortness of breath. Current Medications: Abraxane, benadryl Allergy, cARBOplatin, cetirizine HCl, dexamethasone, dexamethasone Sodium Phosphate, diclofenac, diphenhydrAMINE HCl, famotidine in NaCl, gabapentin, lORazepam, oxyCODONE HCl, palonosetron HCl, prochlorperazine Maleate, tamsulosin HCl, vitamin D. Allergies: PENICILLIN and Statins. Vital Signs: Performed on 11/06/2019 1:22 PM BMI - 30.837 kg/m2 (high), Height - 68.50 in, Weight - 205.8 lbs, Temperature - 98.8 f, Pulse - 92, Respiration - 20, O2 Sat - 95 % (low), Pain - 4 and BP - 138/ 78 mm(hg). Physical Exam: Lungs are clear to auscultation bilaterally. Performance Status: 1 - No physically strenuous activity, but ambulatory and able to carry out light or sedentary work (e.g. office work, light house work). (ECOG) Lab: None pending in Radiation Oncology. Test performed on 11/05/2019 8:10 AM HCT - 40.7 % (low), MCV - 95.5 fl (high), Platelet Count - 93 10 3/cmm (low), Creatinine - 0.6 mg/dl (low), Cr Clearance (Est) - 163.0100 ml/min (high), eGFR - 134.8 ml/min (high) and Glucose - 117 mg/dl (high). Imaging: Radiation therapy imaging related to accurate target localization (i.e. KV, MV and CBCT) was reviewed. Appropriate changes, if any, were made to ensure treatment accuracy. Plan: The patient is tolerating therapy reasonably well. Radiotherapy will continue as planned. CPT: 48984 Signed by: Dr. Alen Oneil 11/08/2019 8:59:17 AM
--- NOTE | 2019-11-11 13:09 | ONC FU_ITS ---
[facility] Patient Note Patient: Satish Aldridge Unit #: [id number]: 1955 Dictated By: Santino ChristensenDate of Visit: Nov 05, 2019 Onc MED Follow-Up/Prog Note Chief Complaint: Lung cancer. History of Present Illness: Mr Aldridge is a 63 year-old man with non-small cell lung cancer. On 09/04/2012 he underwent left upper lobectomy with mediastinal lymphadenectomy for grade 3/4 adenocarcinoma, stage IB (T2a, N0, M0). The primary tumor measured 3.1 x 3.0 x 2.6 cm. There was no involvement in a total of [address] Grissom had seen him for medical oncology consultation on 09/28/2012. He received no further treatment, as there appeared to be no indication for postoperative chemotherapy or radiation. On 07/20/2019 he had presented to the emergency room with chest pain and shortness of breath. His CT pulmonary angiogram showed no evidence of pulmonary embolism. However, he was noted to have a 3.3 x 3.8 cm right hilar mass encasing the central right bronchopulmonary structures. There was invasion into the superior right pulmonary vein. There was additional subcarinal lymph node measuring 1.2 cm. Groundglass attenuation along the right minor fissure appeared compatible with either pneumonitis or lymphangitic spread of tumor. Staging PET/CT on 08/18/2019 showed perihilar mass in the right upper lobe measuring 2.8 cm in diameter with SUV 13.5, consistent with malignancy. A secondary right hilar lymph node measuring 1.4 x 2.5 cm with SUV 9.5, consistent with metastatic disease. The subcarinal lymph node did not demonstrate significant FDG activity and other mediastinal lymph nodes appeared radiographically benign and FDG negative. On 08/22/2019 he underwent bronchoscopy/EBUS with transbronchial needle aspiration biopsy of station 7 and station 10R lymph nodes. There were no endobronchial lesions identified. Pathology on the station 7 lymph node showed benign reactive lymph node with no evidence of dysplastic or neoplastic process. The 10R lymph node showed metastatic non-small cell carcinoma favoring squamous cell carcinoma. On 10/09/2019 he began radiation concurrently with weekly carboplatin/paclitaxel chemotherapy. His initial treatment was complicated by significant hyperglycemia and anxiety associated with the steroid premedication. His week 2 treatment was held due to neutropenia. He continued chemotherapy on 10/22/2019 with his treatment changed to carboplatin/Abraxane. Mr Aldridge is here today for followup. He is due for weekly [place] Abraxane. He has been tolerating it well. He denies any new concerns today. He denies any fever or chills. He has had no symptoms of infection for at least the last 72 hours. He denies any known COVID-19 exposure, symptoms or personal testing. He states overall he feels tired but no worse than what he has been. He is still able to do all his ADLs without any assistance. He states he is eating good. His energy is fair. He states his breathing is about the same certainly no worse. He denies any hemoptysis. He denies any nausea or vomiting. He denies any neuropathy symptoms at present. His ECOG is 1. Past Medical History: Abdominal aortic aneurysm Anxiety Chronic obstructive pulmonary disease Coronary artery disease Degenerative arthritis Depression Dyslipidemia History of treated hepatitis C Hypertension Post traumatic stress disorder Past Surgical History: Repair of abdominal aortic aneurysm Umbilical hernia repair Left upper lobectomy in 2012 Endograft repair of abdominal aortic aneurysm in 2010 Allergies: PENICILLIN and Statins. Medications: Benadryl Allergy 1 Tablet (of 25 mg) Tablet Oral daily PRN Cetirizine HCl 1 Tablet (of 10 mg) Oral daily Diclofenac 1 Capsule Oral daily PRN Gabapentin 1 (300 mg) Capsule Oral t.i.d. oxyCODONE HCl 1 Tablet (of 5 mg) Oral t.i.d. PRN Tamsulosin HCl 1 Capsule (of 0.4 mg) Oral daily Vitamin D 2 Capsule Oral daily Family History: Mr. Aldridge's mother at age 83: Brain aneurysm. Mr. Aldridge's father at age 64: prostate cancer. His paternal grandfather is : pancreatic cancer. Mr. Aldridge has 1 brother who is : liver cancer. He has 1 paternal aunt who is : lung cancer. He has 1 maternal uncle who is : lymphoma. Father of prostate cancer at age 64. Mother with a cerebral aneurysm at age 83. A brother with liver cancer at age 56. His paternal grandfather had pancreatic cancer, a maternal uncle had lymphoma, and a paternal aunt had lung cancer. Social History: Mr. Aldridge is and he is an on disability. He is a daily smoker who has smoked 0.5 packs/day for 50 years. He drinks occasionally. He consumes 2 drinks/day 7 days/week. He has indicated exposure to the following products: cigarettes. Mr. Aldridge reports the following support systems: lives with spouse, significant other, family, or friends, lives in own house, supportive family/friends willing to assist with needs, and adequate transportation available for expected visits. His diet consists of regular meals. He indicates his activity level as: regular exercise. 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 He has a history of smoking 2 packs of cigarettes daily for 50 years. Review Of Symptoms: Constitutional Denies fevers, chills, night sweats, excessive fatigue or weight loss. Allergic/Immunologic No reactions. Eyes Denies significant visual changes. No diplopia. No amaurosis. ENMT Denies changes in hearing, sore throat, mouth sores, difficulty or changes in swallowing ability, and/or sinus drainage. Hematologic/Lymphatic Denies easy bruising or bleeding. The patient denies any tender or palpable lymph nodes. Respiratory Denies dyspnea on exertion, chest pain, cough or hemoptysis. Denies orthopnea. Cardiovascular Denies anginal chest pain, palpitations or orthopnea. Gastrointestinal Denies nausea, vomiting, diarrhea, GI bleeding, or constipation. Denies change in bowel habits and/or stool color, no heartburn or early satiety. Genitourinary (M) Denies hematuria, dysuria, increased frequency, urgency, hesitancy or incontinence. Musculoskeletal Denies joint pain, swelling or redness. No decreased range of motion. Integumentary Denies chronic rashes, inflammation, ulcerations or skin changes. Neurologic Denies headache, blurred vision, and no areas of focal weakness or numbness. Normal gait. No sensory problems. Psychiatric Denies insomnia, depression, pawel or mood swings. Vital Signs: Performed on Nov 05, 2019 10:47 Height - 68.50 in Weight - 207.0 lbs (HIGH) BSA - 2.09 sq.m BMI - 31.02 (HIGH) Temperature - 98.2 F (LOW) Pulse - 85 /min Respiration - 24 /min BP - 127/84 mm(hg) O2 Sat - 95 % (LOW) Pain - 4,1 - No physically strenuous activity, but ambulatory and able to carry out light or sedentary work (e.g. office work, light house work). (ECOG) Physical Examination: Constitutional Alert, oriented, no acute distress. Skin pink, warm and dry. Head Normocephalic; atraumatic. Eyes Conjunctivae and sclerae are clear and without icterus. Pupils are reactive and equal. Neck Supple without masses or thyromegaly. No jugular venous distension. Hematologic/Lymphatic No petechiae or purpura. No tender or palpable lymph nodes in the cervical or supraclavicular areas. Respiratory Lungs are clear to auscultation without rhonchi or wheezing. Cardiovascular Regular rate and rhythm of heart without murmurs,clicks, gallops or rubs. Abdomen Non-tender, non-distended, no masses or ascites. Good bowel sounds noted in all quads. No guarding or rebound tenderness. No pulsatile masses. Back/Spine Non-tender to palpation. Extremities No visible deformities, no cyanosis, clubbing or edema. Musculoskeletal No tenderness or swelling, normal range of motion without obvious weakness. Integumentary No rashes or lesions. Neurologic No sensory or motor deficits, normal cerebellar function, normal gait. Psychiatric Alert and oriented times three. Coherent speech. Verbalizes understanding of our discussions today. Laboratory:Test performed on Nov 05, 2019 08:10 Sodium 139 mmol/L Potassium 3.8 mmol/L Chloride 105 mmol/L CO2 25 mmol/L Anion Gap 12.8 BUN 11 mg/dL Creatinine 0.6 mg/dL Cr Clearance (Est) 163.0100 mL/min eGFR 134.8 mL/min Glucose 117 mg/dL Osmolality - Calculated 288 mOsm/kg Calcium 8.7 mg/dL Protein, Total 7.1 g/dL Albumin 4.0 g/dL Globulin 3.1 g/dL Bilirubin, Total 0.3 mg/dL ALT (SGPT) 15 U/L AST (SGOT) 18 U/L Alkaline Phosphatase 63 IU/L WBC 4.3 10 3/uL RBC 4.26 10 6/uL HGB 12.9 g/dL HCT 40.7 % MCV 95.5 fL MCH 30.3 pg MCHC 31.7 g/dL RDW 12.8 % Platelet Count 93 10 3/cmm MPV 9.8 fL Neutrophils 2.84 10 3/uL Lymphocytes 0.9 10 3/uL Monocytes 0.3 10 3/uL Eosinophils 0.1 10 3/uL Basophils 0.0 10 3/uL Neutrophil % 66.8 % Lymphocyte % 21.4 % Monocyte % 8.0 % Eosinophil % 2.4 % Basophils % 0.7 % NRBC % 0 % Impression: 1. Patient with grade 3/4 adenocarcinoma involving the upper lobe of the left lung, stage IB (T2a, N0, M0), for which he underwent thoracotomy with left upper lobectomy and mediastinal lymphadenectomy on 09/04/2012. 2. He now has biopsy-proven non-small cell carcinoma involving her right hilar mass. Pathology favored squamous cell carcinoma. Given the interval from his surgery, the location of the mass, and the histology, that appears to be most likely a second primary malignancy. By PET/CT there appears to be additional right hilar adenopathy so that by clinical evaluation his disease appears to be stage IIB (T2a, N1, M0). His other medical illnesses include: 3. COPD. 4. Hypertension. 5. Dyslipidemia. 6. Coronary artery disease with previous myocardial infarction. 7. Degenerative arthritis. 8. History of treated hepatitis C. 9. History of abdominal aortic aneurysm for which he underwent endograft repair in 2010. 10. Posttraumatic stress disorder with anxiety/depression. He began radiation, concurrently with weekly carboplatin/paclitaxel on 10/09/2019. His initial chemotherapy treatment was complicated by hyperglycemia and anxiety associated with the steroid premedication. His week 2 treatment was deferred due to neutropenia. He then continued with his treatment on 10/22/2019 with Abraxane substituted for the paclitaxel, and thus far he seems to be tolerating that much better. Plan: 1. Proceed with week for chemotherapy with carboplatin Abraxane. 2. Continue current antiemetics as they are working well. 3. Labs from today were reviewed in detail and discussed with Mr. aldridge and a copy was given to him. WBC 4.3, hemoglobin 12.9, platelets 93,000 ANC 2840. Potassium 3.8 creatinine 0.6 LFTs are normal random glucose was 117. 4. Mr. Aldridge's blood pressures remained stable so he will remain off the lisinopril. 5. He will continue taking the omeprazole as he feels this is helping. 6. We will plan to see him back in 1 week with CBC CMP. We did discuss that his platelet counts had dropped from last week and may be low enough that he does not get treatment next week. He is aware that we will check his labs prior to any chemotherapy decisions. 7. Mr. Aldridge was instructed to contact us in the interim should questions or problems arise. Signed By: Santino Christensen-, AOCNP Gino Grissom MD <<Signature on File>>
== END 2019-11-07 23:59 | disposition home or self-care (01) ==
LOC: ONCMED 05:43
PROVIDERS: Internal Medicine Hematology & Oncology; Internal Medicine Medical Oncology; Nurse Practitioner; Absent Provider Radiology Radiation Oncology; PCP Emergency Medicine Emergency Medical Services; Visit Provider Radiology Radiation Oncology
DX: Z51.0 Encounter for antineoplastic radiation therapy (principal); Z51.11 Encounter for antineoplastic chemotherapy; C34.01 Malignant neoplasm of right main bronchus; C34.12 Malignant neoplasm of upper lobe, left bronchus or lung; J44.9 Chronic obstructive pulmonary disease, unspecified; I10 Essential (primary) hypertension; E78.5 Hyperlipidemia, unspecified; I25.10 Atherosclerotic heart disease of native coronary artery without angina pectoris; I25.2 Old myocardial infarction; M19.90 Unspecified osteoarthritis, unspecified site; F43.10 Post-traumatic stress disorder, unspecified; F41.9 Anxiety disorder, unspecified; F32.9 Major depressive disorder, single episode, unspecified; Z86.19 Personal history of other infectious and parasitic diseases
CPT/HCPCS: 36591; 77336; 77386; 80053; 85025; 96360; 96367; 96413; 96417; 99214; J1100; J1200; J2469; J3490; J7030; J7050; J9045; J9264; J9267

== ENCOUNTER 2019-11-26 05:28 | Outpatient (RCR) | payer OTHER, SELFPAY ==
[2019-11-12 10:45] LABS: Basophils % 0.7 %; Eosinophils % 1.4 %; Hemoglobin 12.6 g/dL (11.7-16.6); Lymphocytes # 0.7 10^3/uL (0.8-4.8); Lymphocytes % 25.1 %; Mean Corpuscular HGB Conc 32.3 g/dL (30.0-36.0); Mean Corpuscular Hemoglobin 30.4 pg (28.0-34.0); Mean Platelet Volume 9.4 fL (7.4-10.4); Monocytes # 0.3 10^3/uL (0.2-0.9); Monocytes % 9.8 %; Neutrophils # 1.85 10^3/uL (1.8-7.7); Neutrophils % 62.7 %; Nucleated Red Blood Cells % 0 %; Platelet Count 100 10^3/cmm (130-400); Red Blood Count 4.15 10^6/uL (4.1-5.3); Red Cell Distribution Width 13.3 % (12.1-15.1)
[2019-11-12] MEDS: sodium chloride 0.9% 250 ML 75 ML IV (10:50)
[2019-11-12 11:02] LABS: Alanine Aminotransferase 12 U/L (0-41); Alkaline Phosphatase 67 IU/L (40-130); Anion Gap 12.7 (5-19); Aspartate Amino Transferase 16 U/L (0-40); Blood Urea Nitrogen 8 mg/dL (8-23); Calcium 9.3 mg/dL (8.5-10.5); Carbon Dioxide 26 mmol/L (22-29); Chloride 102 mmol/L (98-107); Glomerular Filtration Rate 96.7 mL/min (90-130); Glucose 128 mg/dL (65-115); Osmolality Calculated 284 mOsm/kg (285-295); Potassium 3.7 mmol/L (3.5-5.1); Sodium 137 mmol/L (136-145); Total Bilirubin 0.3 mg/dL (0.15-1.2)
--- NOTE | 2019-11-13 07:09 | ONC FU_ITS ---
Dr. Grissom Patient Follow-Up Note Patient: Satish Fry Unit #: [id number]: 1955 Dicatated By: Gino Grissom M.D.Date of Visit:Nov 12, 2019 Onc Med Follow-up/Prog Note Chief Complaint: Lung cancer. History of Present Illness: This is a 63 year-old man with non-small cell lung cancer. On 09/04/2012 he underwent left upper lobectomy with mediastinal lymphadenectomy for grade 3/4 adenocarcinoma, stage IB (T2a, N0, M0). The primary tumor measured 3.1 x 3.0 x 2.6 cm. There was no involvement in a total of 14 lymph nodes. I had seen him for medical oncology consultation on 09/28/2012. He received no further treatment, as there appeared to be no indication for postoperative chemotherapy or radiation. On 07/20/2019 he had presented to the emergency room with chest pain and shortness of breath. His CT pulmonary angiogram showed no evidence of pulmonary embolism. However, he was noted to have a 3.3 x 3.8 cm right hilar mass encasing the central right bronchopulmonary structures. There was invasion into the superior right pulmonary vein. There was additional subcarinal lymph node measuring 1.2 cm. Groundglass attenuation along the right minor fissure appeared compatible with either pneumonitis or lymphangitic spread of tumor. Staging PET/CT on 08/18/2019 showed perihilar mass in the right upper lobe measuring 2.8 cm in diameter with SUV 13.5, consistent with malignancy. A secondary right hilar lymph node measuring 1.4 x 2.5 cm with SUV 9.5, consistent with metastatic disease. The subcarinal lymph node did not demonstrate significant FDG activity and other mediastinal lymph nodes appeared radiographically benign and FDG negative. On 08/22/2019 he underwent bronchoscopy/EBUS with transbronchial needle aspiration biopsy of station 7 and station 10R lymph nodes. There were no endobronchial lesions identified. Pathology on the station 7 lymph node showed benign reactive lymph node with no evidence of dysplastic or neoplastic process. The 10R lymph node showed metastatic non-small cell carcinoma favoring squamous cell carcinoma. On 10/09/2019 he began radiation concurrently with weekly carboplatin/paclitaxel chemotherapy. His initial treatment was complicated by significant hyperglycemia and anxiety associated with the steroid premedication. His week 2 treatment was held due to neutropenia. He continued chemotherapy on 10/22/2019 with his treatment changed to carboplatin/Abraxane. He tolerated the chemotherapy much better with the Abraxane substituted for the paclitaxel. He was able to continue with his third weekly chemotherapy dosage on 10/29/2019 and with week 4 11/05/2019. He is seen for a scheduled visit. He is still feeling pretty good generally. He does complain that he has no energy and that he makes himself to do things. He is still doing light work. ECOG score is 1. His appetite is pretty good, but he does complain that he has no taste. He does not have fever or night sweats. Last week he had sore throat and he lost his voice, but it is better now. He has no difficulty swallowing. His breathing is pretty good. He still has cough, but not as bad. He does not complain of chest pain. He has no GI/ complaints other than some heartburn, for which he is on medication. He has chronic arthritis pain, which is unchanged. He does not complain of headache or dizziness. He has no numbness/paresthesia or other focal neurologic symptoms. Medications: Benadryl Allergy 1 Tablet (of 25 mg) Tablet Oral daily PRN, Cetirizine HCl 1 Tablet (of 10 mg) Oral daily, Diclofenac 1 Capsule Oral daily PRN, Gabapentin 1 (300 mg) Capsule Oral t.i.d., Omeprazole 1 Tablet (of 20 mg) Tablet, enteric coated Oral daily, oxyCODONE HCl 1 Tablet (of 10 mg) Oral t.i.d. PRN, Tamsulosin HCl 1 Capsule (of 0.4 mg) Oral daily, Vitamin D 2 Capsule Oral daily Allergies: PENICILLIN and Statins. Review of Systems: Constitutional - He complains that he has no energy and that he makes himself to do things. His appetite is pretty good, but he has no taste. He does not have fever or night sweats. ECOG score is 1, ENMT - He has sinus congestion/drainage. No mouth sores. Last week he had sore throat and he lost his voice, but it is better now. He has no difficulty swallowing, Hematologic/Lymphatic - No abnormal bruising or bleeding, Respiratory - No shortness of breath. He has cough, but not as bad. No pleuritic pain or hemoptysis, Cardiovascular - No angina pain. No palpitations, Gastrointestinal - No nausea or vomiting. He has having some heartburn, but he is on medication for it. No diarrhea or constipation. No blood in the stool or black stools, Genitourinary (M) - No dysuria or hematuria. No urinary frequency. No urgency or incontinence, Musculoskeletal - He has chronic arthritis pain, Integumentary - No skin eruption, Neurologic - No headache or dizziness. No numbness or tingling. No other focal neurologic symptoms, Psychiatric - No anxiety or depression. No insomnia. Vital Signs: Performed on Nov 12, 2019 10:48 Height - 68.50 in Weight - 206.6 lbs (HIGH) BSA - 2.08 sq.m BMI - 30.96 (HIGH) Temperature - 97.5 F (LOW) Pulse - 96 /min Respiration - 24 /min BP - 140/76 mm(hg) O2 Sat - 95 % (LOW) Pain - 4 Physical Examination: Constitutional - He looks pretty good generally, Eyes - Sclerae nonicteric. Conjunctivae clear, ENMT - No lesions noted in the oral cavity, Hematologic/Lymphatic - No cervical, clavicular, or axillary adenopathy, Respiratory - Lungs are clear with diminished air movement bilaterally, Cardiovascular - Heart rhythm is regular. There is no murmur, gallop, or rub noted, Abdomen - Mildly distended. Liver and spleen are not enlarged. There is no abdominal mass or ascites noted and there is no inguinal adenopathy, Extremities - No edema, Neurologic - No focal neurologic deficits noted. Lab/Imaging: Test performed on Nov 12, 2019 10:30 Sodium 137 mmol/L Potassium 3.7 mmol/L Chloride 102 mmol/L CO2 26 mmol/L Anion Gap 12.7 BUN 8 mg/dL Creatinine 0.8 mg/dL Cr Clearance (Est) 122.2600 mL/min eGFR 96.7 mL/min Glucose 128 mg/dL Osmolality - Calculated 284 mOsm/kg Calcium 9.3 mg/dL Protein, Total 7.0 g/dL Albumin 4.0 g/dL Globulin 3.0 g/dL Bilirubin, Total 0.3 mg/dL ALT (SGPT) 12 U/L AST (SGOT) 16 U/L Alkaline Phosphatase 67 IU/L WBC 3.0 10 3/uL RBC 4.15 10 6/uL HGB 12.6 g/dL HCT 39.0 % MCV 94.0 fL MCH 30.4 pg MCHC 32.3 g/dL RDW 13.3 % Platelet Count 100 10 3/cmm MPV 9.4 fL Neutrophils 1.85 10 3/uL Lymphocytes 0.7 10 3/uL Monocytes 0.3 10 3/uL Eosinophils 0.0 10 3/uL Basophils 0.0 10 3/uL Neutrophil % 62.7 % Lymphocyte % 25.1 % Monocyte % 9.8 % Eosinophil % 1.4 % Basophils % 0.7 % NRBC % 0 % Impression: 1. Patient with grade 3/4 adenocarcinoma involving the upper lobe of the left lung, stage IB (T2a, N0, M0), for which he underwent thoracotomy with left upper lobectomy and mediastinal lymphadenectomy on 09/04/2012. 2. He now has biopsy-proven non-small cell carcinoma involving her right hilar mass. Pathology favored squamous cell carcinoma. Given the interval from his surgery, the location of the mass, and the histology, that appears to be most likely a second primary malignancy. By PET/CT there appears to be additional right hilar adenopathy so that by clinical evaluation his disease appears to be stage IIB (T2a, N1, M0). His other medical illnesses include: 3. COPD. 4. Hypertension. 5. Dyslipidemia. 6. Coronary artery disease with previous myocardial infarction. 7. Degenerative arthritis. 8. History of treated hepatitis C. 9. History of abdominal aortic aneurysm for which he underwent endograft repair in 2010. 10. Posttraumatic stress disorder with anxiety/depression. He began radiation concurrently with weekly carboplatin/paclitaxel on 10/09/2019. His initial chemotherapy treatment was complicated by hyperglycemia and anxiety associated with the steroid premedication. His week 2 treatment was deferred due to neutropenia. He then continued with his treatment on 10/22/2019 with Abraxane substituted for the paclitaxel, which he tolerated much better. He was able to continue with his week 3 chemotherapy on 10/29/2019 and with week 4 on 11/05/2019. He now has moderately severe neutropenia, but overall he is tolerating the treatment with acceptable toxicity. Plan: He will proceed now with his week 5 chemotherapy infusion with the carboplatin/Abraxane. The dosages remain the same. With his granulocyte count moderately decreased, I will continue to monitor his blood counts weekly, but I will not plan any further chemotherapy. He is due to complete radiation next week. Signed By: Gino Grissom M.D. <<Signature on File>>
--- NOTE | 2019-11-15 08:04 | ONCRAD TMN_ITS ---
Radiation Oncology Weekly Treatment Management Patient: Satish Fry MR#: [id number] : 1955 Age: 64 Sex: Male Dictated by: Dr. Alen Oneil Date of Service: 11/13/2019 Referring Physician(s) : Eugenio Weiss M.D. Diagnosis: -) Left upper lobe of lung: T2 aN0 M0 adenocarcinoma status post left upper lobectomy and mediastinal lymphadenectomy (09/04/2012) -) Second primary-right upper lobe of lung: Nonresectable T2 N1 M0 non-small cell lung carcinoma favoring squamous cell carcinoma. Planned treatment: Weekly carbotaxol concurrent with definitive radiation therapy to a total dose of 60 Gy in 30 fractions. Radiotherapy to date: Course: RT Lung [id number], Treatment Site: RT Lung 60Gy, Ref. ID: [id number], Energy: 6X, Dose/Fx (cGy): 200, #Fx: 25 / 30, Dose Correction (cGy): 0, Total Dose (cGy): 5,000, Start Date: 10/09/2019, Elapsed Days: 35 Reason for visit: The patient is being seen today as part of their regularly scheduled weekly on treatment visits to assess for acute toxicities from radiotherapy. Interim History: The patient has moderate cough which is productive for white/yellow sputum, moderate fatigue, and no odynophagia. He also reports no progressive shortness of breath. Current Medications: Abraxane, benadryl Allergy, cARBOplatin, cetirizine HCl, dexamethasone, dexamethasone Sodium Phosphate, diclofenac, diphenhydrAMINE HCl, famotidine in NaCl, gabapentin, lORazepam, omeprazole, oxyCODONE HCl, palonosetron HCl, prochlorperazine Maleate, tamsulosin HCl, vitamin D. Allergies: PENICILLIN and Statins. Current Complaints/Review of Systems: Constitutional - Complains of moderate fatigue. Denies lack of appetite, fever, night sweats and change in weight. ENMT - Denies dysphagia. Cardiovascular - Denies chest pain and edema. Respiratory - Complains of a moderate cough which is productive and the color of sputum is white to yellowish in color. Complains of chronic dyspnea. Denies hemoptysis and wheezing. Vital Signs: Performed on 11/13/2019 1:24 PM BMI - 31.196 kg/m2 (high), Height - 68.50 in, Weight - 208.2 lbs, Temperature - 98.5 f, Pulse - 94, Respiration - 20, O2 Sat - 95 % (low), Pain - 3 and BP - 144/ 85 mm(hg)(high/). Physical Exam: Appears stable, no skin erythema or desquamation. Lungs are clear to auscultation bilaterally. Performance Status: 1 - No physically strenuous activity, but ambulatory and able to carry out light or sedentary work (e.g. office work, light house work). (ECOG) Lab: None pending in Radiation Oncology. Test performed on 11/12/2019 10:30 AM WBC - 3.0 10 3/ul (low), HCT - 39.0 % (low), Platelet Count - 100 10 3/cmm (low), Lymphocytes - 0.7 10 3/ul (low), Glucose - 128 mg/dl (high) and Osmolality - Calculated - 284 mosm/kg (low). Imaging: Radiation therapy imaging related to accurate target localization (i.e. KV, MV and CBCT) was reviewed. Appropriate changes, if any, were made to ensure treatment accuracy. Plan: The patient is tolerating therapy reasonably well. Radiotherapy will continue as planned. CPT: 42866 Signed by: Dr. Alen Oneil 11/15/2019 8:03:24 AM
[2019-11-19 10:34] LABS: Basophils % 0.6 %; Eosinophils % 1.1 %; Hematocrit 36.7 % (42.0-52.0); Lymphocytes # 0.9 10^3/uL (0.8-4.8); Lymphocytes % 52.8 %; Mean Corpuscular HGB Conc 32.7 g/dL (30.0-36.0); Mean Corpuscular Hemoglobin 30.8 pg (28.0-34.0); Mean Corpuscular Volume 94.3 fL (80-94); Mean Platelet Volume 9.7 fL (7.4-10.4); Monocytes # 0.1 10^3/uL (0.2-0.9); Monocytes % 7.9 %; Neutrophils % 37.6 %; Nucleated Red Blood Cells % 0 %; Platelet Count 65 10^3/cmm (130-400); Red Blood Count 3.89 10^6/uL (4.1-5.3); Red Cell Distribution Width 13.9 % (12.1-15.1); White Blood Count 1.8 10^3/uL (4.0-10.0)
[2019-11-19 11:03] LABS: Alanine Aminotransferase 13 U/L (0-41); Alkaline Phosphatase 64 IU/L (40-130); Anion Gap 16.8 (5-19); Aspartate Amino Transferase 18 U/L (0-40); Blood Urea Nitrogen 12 mg/dL (8-23); Calcium 9.1 mg/dL (8.5-10.5); Carbon Dioxide 24 mmol/L (22-29); Chloride 102 mmol/L (98-107); Glomerular Filtration Rate 112.8 mL/min (90-130); Glucose 198 mg/dL (65-115); Osmolality Calculated 293 mOsm/kg (285-295); Potassium 3.8 mmol/L (3.5-5.1); Sodium 139 mmol/L (136-145); Total Bilirubin 0.4 mg/dL (0.15-1.2)
[2019-11-19 11:18] LABS: Slide Review Slide Review Perform
[2019-11-19 11:21] LABS: Neutrophils # 0.67 10^3/uL (1.8-7.7)
--- NOTE | 2019-11-19 14:02 | ONC FU_ITS ---
[facility] Patient Note Patient: Satish Fry Unit #: [id number]: 1955 Dictated By: Santino ChristensenDate of Visit: Nov 19, 2019 Onc MED Follow-Up/Prog Note Chief Complaint: Lung cancer. History of Present Illness: Mr Fry is a 63 year-old man with non-small cell lung cancer. On 09/04/2012 he underwent left upper lobectomy with mediastinal lymphadenectomy for grade 3/4 adenocarcinoma, stage IB (T2a, N0, M0). The primary tumor measured 3.1 x 3.0 x 2.6 cm. There was no involvement in a total of 14 lymph nodes. I had seen him for medical oncology consultation on 09/28/2012. He received no further treatment, as there appeared to be no indication for postoperative chemotherapy or radiation. On 07/20/2019 he had presented to the emergency room with chest pain and shortness of breath. His CT pulmonary angiogram showed no evidence of pulmonary embolism. However, he was noted to have a 3.3 x 3.8 cm right hilar mass encasing the central right bronchopulmonary structures. There was invasion into the superior right pulmonary vein. There was additional subcarinal lymph node measuring 1.2 cm. Groundglass attenuation along the right minor fissure appeared compatible with either pneumonitis or lymphangitic spread of tumor. Staging PET/CT on 08/18/2019 showed perihilar mass in the right upper lobe measuring 2.8 cm in diameter with SUV 13.5, consistent with malignancy. A secondary right hilar lymph node measuring 1.4 x 2.5 cm with SUV 9.5, consistent with metastatic disease. The subcarinal lymph node did not demonstrate significant FDG activity and other mediastinal lymph nodes appeared radiographically benign and FDG negative. On 08/22/2019 he underwent bronchoscopy/EBUS with transbronchial needle aspiration biopsy of station 7 and station 10R lymph nodes. There were no endobronchial lesions identified. Pathology on the station 7 lymph node showed benign reactive lymph node with no evidence of dysplastic or neoplastic process. The 10R lymph node showed metastatic non-small cell carcinoma favoring squamous cell carcinoma. On 10/09/2019 he began radiation concurrently with weekly carboplatin/paclitaxel chemotherapy. His initial treatment was complicated by significant hyperglycemia and anxiety associated with the steroid premedication. His week 2 treatment was held due to neutropenia. He continued chemotherapy on 10/22/2019 with his treatment changed to carboplatin/Abraxane. He tolerated the chemotherapy much better with the Abraxane substituted for the paclitaxel. He was able to continue with his third weekly chemotherapy dosage on 10/29/2019 and with week 4 11/05/2019. Mr. Fry is here today for follow-up. He was seen last week by Dr. Grissom. He did receive chemotherapy over nausea blood counts are borderline. He was anticipated that would be his last chemotherapy. He completes radiation tomorrow. He states overall he feels good. He denies any fever or chills. He has had no mouth sores, sore throat or difficulty swallowing. He denies any new cough. He states his cough overall is better. Has occasional productive cough but that is not new. He denies any hemoptysis. He states his breathing overall is much better. He denies any chest pain or palpitations. He denies any mouth sores, sore throat or difficulty swallowing. He denies any neuropathy symptoms. He states his bowels and bladder are normal for him. His appetite is fair. His energy is slowly improving although not great. He is stopping his pain medications and referring him to [facility] [place] clinic. He does have a medical card for medicinal marijuana and is concerned about seeing the pain clinic with that. I had to inform I was very sorry but did not know the rules from the pain clinic on medicinal marijuana with current pain treatment . He is having no new bone pain now but has chronic bone pain and takes no more than 3 of the oxycodone 10 mg daily. He denies any new pain. He states that his regimen controls his pain well at this time. He denies any lower extremity edema. His ECOG is 2. Past Medical History: Abdominal aortic aneurysm Anxiety Chronic obstructive pulmonary disease Coronary artery disease Degenerative arthritis Depression Dyslipidemia History of treated hepatitis C Hypertension Post traumatic stress disorder Past Surgical History: Repair of abdominal aortic aneurysm Umbilical hernia repair Left upper lobectomy in 2013 Endograft repair of abdominal aortic aneurysm in 2010 Allergies: PENICILLIN and Statins. Medications: Benadryl Allergy 1 Tablet (of 25 mg) Tablet Oral daily PRN Cetirizine HCl 1 Tablet (of 10 mg) Oral daily Diclofenac 1 Capsule Oral daily PRN Gabapentin 1 (300 mg) Capsule Oral t.i.d. Omeprazole 1 Tablet (of 20 mg) Tablet, enteric coated Oral daily oxyCODONE HCl 1 Tablet (of 10 mg) Oral t.i.d. PRN Tamsulosin HCl 1 Capsule (of 0.4 mg) Oral daily Vitamin D 2 Capsule Oral daily Family History: Mr. Fry's mother at age 83: Brain aneurysm. Mr. Nicoles father at age 64: prostate cancer. His paternal grandfather is : pancreatic cancer. Mr. Fry has 1 brother who is : liver cancer. He has 1 paternal aunt who is : lung cancer. He has 1 maternal uncle who is : lymphoma. Father of prostate cancer at age 64. Mother with a cerebral aneurysm at age 83. A brother with liver cancer at age 56. His paternal grandfather had pancreatic cancer, a maternal uncle had lymphoma, and a paternal aunt had lung cancer. Social History: Mr. Fry is and he is an on disability. He is a daily smoker who has smoked 0.5 packs/day for 50 years. He drinks occasionally. He consumes 2 drinks/day 7 days/week. He has indicated exposure to the following products: cigarettes. Mr. Fry reports the following support systems: lives with spouse, significant other, family, or friends, lives in own house, supportive family/friends willing to assist with needs, and adequate transportation available for expected visits. His diet consists of regular meals. He indicates his activity level as: regular exercise. 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 He has a history of smoking 2 packs of cigarettes daily for 50 years. Review Of Symptoms: Constitutional Denies fevers, chills, night sweats, excessive fatigue or weight loss. Allergic/Immunologic No reactions. Eyes Denies significant visual changes. No diplopia. No amaurosis. ENMT Denies changes in hearing, sore throat, mouth sores, difficulty or changes in swallowing ability, and/or sinus drainage. Hematologic/Lymphatic Denies easy bruising or bleeding. The patient denies any tender or palpable lymph nodes. Respiratory Denies dyspnea on exertion, chest pain, cough or hemoptysis. Denies orthopnea. Cardiovascular Denies anginal chest pain, palpitations or orthopnea. Gastrointestinal Denies nausea, vomiting, diarrhea, GI bleeding, or constipation. Denies change in bowel habits and/or stool color, no heartburn or early satiety. Genitourinary (M) Denies hematuria, dysuria, increased frequency, urgency, hesitancy or incontinence. Musculoskeletal Denies joint pain, swelling or redness. No decreased range of motion. Integumentary Denies chronic rashes, inflammation, ulcerations or skin changes. Neurologic Denies headache, blurred vision, and no areas of focal weakness or numbness. Normal gait. No sensory problems. Psychiatric Denies insomnia, depression, pawel or mood swings. Vital Signs: Performed on Nov 19, 2019 10:51 Height - 68.50 in Weight - 203.2 lbs (LOW) BSA - 2.07 sq.m BMI - 30.45 (HIGH) Temperature - 98.5 F Pulse - 103 /min (HIGH) Respiration - 18 /min BP - 104/70 mm(hg) O2 Sat - 95 % (LOW) Pain - 0,1 - No physically strenuous activity, but ambulatory and able to carry out light or sedentary work (e.g. office work, light house work). (ECOG) Physical Examination: Constitutional Alert, oriented, no acute distress. Skin pink, warm and dry. Head Normocephalic; atraumatic. Eyes Conjunctivae and sclerae are clear and without icterus. Pupils are reactive and equal. Neck Supple without masses or thyromegaly. No jugular venous distension. Hematologic/Lymphatic No petechiae or purpura. No tender or palpable lymph nodes in the cervical or supraclavicular areas. Respiratory Lungs are clear to auscultation without rhonchi or wheezing. Cardiovascular Regular rate and rhythm of heart without murmurs,clicks, gallops or rubs. Abdomen Non-tender, non-distended, no masses or ascites. Good bowel sounds noted in all quads. No guarding or rebound tenderness. No pulsatile masses. Back/Spine Non-tender to palpation. Extremities No visible deformities, no cyanosis, clubbing or edema. Musculoskeletal No tenderness or swelling, normal range of motion without obvious weakness. Integumentary No rashes or lesions. Neurologic No sensory or motor deficits, normal cerebellar function, normal gait. Psychiatric Alert and oriented times three. Coherent speech. Verbalizes understanding of our discussions today. Laboratory:Test performed on Nov 19, 2019 10:20 Sodium 139 mmol/L Potassium 3.8 mmol/L Chloride 102 mmol/L CO2 24 mmol/L Anion Gap 16.8 BUN 12 mg/dL Creatinine 0.7 mg/dL Cr Clearance (Est) 139.7300 mL/min eGFR 112.8 mL/min Glucose 198 mg/dL Osmolality - Calculated 293 mOsm/kg Calcium 9.1 mg/dL Protein, Total 7.0 g/dL Albumin 4.0 g/dL Globulin 3.0 g/dL Bilirubin, Total 0.4 mg/dL ALT (SGPT) 13 U/L AST (SGOT) 18 U/L Alkaline Phosphatase 64 IU/L WBC 1.8 10 3/uL RBC 3.89 10 6/uL HGB 12.0 g/dL HCT 36.7 % MCV 94.3 fL MCH 30.8 pg MCHC 32.7 g/dL RDW 13.9 % Platelet Count 65 10 3/cmm MPV 9.7 fL Neutrophils 0.67 10 3/uL Lymphocytes 0.9 10 3/uL Monocytes 0.1 10 3/uL Eosinophils 0.0 10 3/uL Basophils 0.0 10 3/uL Neutrophil % 37.6 % Lymphocyte % 52.8 % Monocyte % 7.9 % Eosinophil % 1.1 % Basophils % 0.6 % NRBC % 0 % CBC Slide Review Slide Review Perform REVIEW AGREES WITH AUTOMATED Impression: 1. Patient with grade 3/4 adenocarcinoma involving the upper lobe of the left lung, stage IB (T2a, N0, M0), for which he underwent thoracotomy with left upper lobectomy and mediastinal lymphadenectomy on 09/04/2012. 2. He now has biopsy-proven non-small cell carcinoma involving her right hilar mass. Pathology favored squamous cell carcinoma. Given the interval from his surgery, the location of the mass, and the histology, that appears to be most likely a second primary malignancy. By PET/CT there appears to be additional right hilar adenopathy so that by clinical evaluation his disease appears to be stage IIB (T2a, N1, M0). His other medical illnesses include: 3. COPD. 4. Hypertension. 5. Dyslipidemia. 6. Coronary artery disease with previous myocardial infarction. 7. Degenerative arthritis. 8. History of treated hepatitis C. 9. History of abdominal aortic aneurysm for which he underwent endograft repair in 2010. 10. Posttraumatic stress disorder with anxiety/depression. He began radiation concurrently with weekly carboplatin/paclitaxel on 10/09/2019. His initial chemotherapy treatment was complicated by hyperglycemia and anxiety associated with the steroid premedication. His week 2 treatment was deferred due to neutropenia. He then continued with his treatment on 10/22/2019 with Abraxane substituted for the paclitaxel, which he tolerated much better. He was able to continue with his week 3 chemotherapy on 10/29/2019 and with week 4 on 11/05/2019. He now has moderately severe neutropenia, but overall he is tolerating the treatment with acceptable toxicity. Plan: 1. He has completed 5 weeks of carboplatin Abraxane. His treatment will be held this week. Due to neutropenia. 2. Today's labs were reviewed in detail and discussed with Mr. Fry and a copy was given to him. WBC 1.8, hemoglobin 12.0, platelets 65,000, ANC 670. Potassium 3.8 creatinine is 0.4 LFTs are normal. 3. We will get a prior authorization for Neupogen 480 for 1 dose tomorrow as he completes radiation. He is also been given a prescription for Levaquin 500 mg 1 daily #7 with 1 refill in the event that he runs fever or shows signs or symptoms of infection. He states he is taken the Levaquin before and tolerated it well. He verbalized understanding as to when to take the medication. 4. We will plan to see him back in 4 weeks with CBC CMP and follow-up visit at that time for further plan of care. 5. Mr. Fry has been instructed that we will be glad to see him at any point and he should call us if any questions or problems arise. Signed By: Santino Christensen-AMMY, AOTADEOP Gino Grissom MD <<Signature on File>>
--- NOTE | 2019-11-20 17:40 | ONCRAD TMN_ITS ---
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 Alen Oneil Date of Service: 11/20/2019 Referring Physician(s) : Eugenio Weiss M.D. Diagnosis: -) Left upper lobe of lung: T2 aN0 M0 adenocarcinoma status post left upper lobectomy and mediastinal lymphadenectomy (09/04/2012) -) Second primary-right upper lobe of lung: Nonresectable T2 N1 M0 non-small cell lung carcinoma favoring squamous cell carcinoma. Planned treatment: Weekly carbotaxol concurrent with definitive radiation therapy to a total dose of 60 Gy in 30 fractions. Radiotherapy to date: Course: RT Lung [id number], Treatment Site: RT Lung 60Gy, Ref. ID: [id number], Energy: 6X, Dose/Fx (cGy): 200, #Fx: 30 / 30, Dose Correction (cGy): 0, Total Dose (cGy): 6,000, Start Date: 10/09/2019, End Date: 11/20/2019, Elapsed Days: 42 Reason for visit: The patient is being seen today as part of their regularly scheduled weekly on treatment visits to assess for acute toxicities from radiotherapy. Interim History: The patient reports no odynophagia, no shortness of breath, and no hemoptysis. He has a moderate cough which is sometimes productive for clear sputum. Current Medications: Abraxane, benadryl Allergy, cARBOplatin, cetirizine HCl, dexamethasone, dexamethasone Sodium Phosphate, diclofenac, diphenhydrAMINE HCl, famotidine in NaCl, gabapentin, levoFLOXacin, omeprazole, oxyCODONE HCl, palonosetron HCl, prochlorperazine Maleate, tamsulosin HCl, vitamin D. Allergies: PENICILLIN and Statins. Current Complaints/Review of Systems: Vital Signs: Performed on 11/20/2019 1:22 PM BMI - 30.687 kg/m2 (high), Height - 68.50 in, Weight - 204.8 lbs, Temperature - 99.8 f, Pulse - 110, Respiration - 18, O2 Sat - 95 % (low), Pain - 4, BP - 139/ 83 mm(hg), Performed on 11/20/2019 1:50 PM Height - 68.50 in, Temperature - 98.2 f (low), Pulse - 106 /min (high), Respiration - 20 /min, Pain - 0 and BP - 136/ 81 mm(hg). Physical Exam: Appears stable, no skin erythema or desquamation. Lungs are clear to auscultation bilaterally. Performance Status: 1 - No physically strenuous activity, but ambulatory and able to carry out light or sedentary work (e.g. office work, light house work). (ECOG) Lab: None pending in Radiation Oncology. Test performed on 11/19/2019 10:20 AM WBC - 1.8 10 3/ul (low), RBC - 3.89 10 6/ul (low), HCT - 36.7 % (low), MCV - 94.3 fl (high), Platelet Count - 65 10 3/cmm (low), Neutrophils - 0.67 10 3/ul (low), Monocytes - 0.1 10 3/ul (low), Cr Clearance (Est) - 139.7300 ml/min (high) and Glucose - 198 mg/dl (high). Imaging: Radiation therapy imaging related to accurate target localization (i.e. KV, MV and CBCT) was reviewed. Appropriate changes, if any, were made to ensure treatment accuracy. Plan: Follow-up with radiation oncology in [address] of the chest. CPT: 25245 Signed by: Dr. Alen Oneil 11/20/2019 5:38:46 PM
== END 2019-12-08 23:59 | disposition home or self-care (01) ==
LOC: ONCMED 05:28
PROVIDERS: Nurse Practitioner; PCP Emergency Medicine Emergency Medical Services; Visit Provider Internal Medicine Medical Oncology
DX: Z51.0 Encounter for antineoplastic radiation therapy (principal); Z51.11 Encounter for antineoplastic chemotherapy; C34.01 Malignant neoplasm of right main bronchus; C77.1 Secondary and unspecified malignant neoplasm of intrathoracic lymph nodes; D70.1 Agranulocytosis secondary to cancer chemotherapy; T45.1X5A Adverse effect of antineoplastic and immunosuppressive drugs, initial encounter; M19.90 Unspecified osteoarthritis, unspecified site; J44.9 Chronic obstructive pulmonary disease, unspecified; I10 Essential (primary) hypertension; E78.5 Hyperlipidemia, unspecified; I25.10 Atherosclerotic heart disease of native coronary artery without angina pectoris; I25.2 Old myocardial infarction; F43.10 Post-traumatic stress disorder, unspecified; F41.8 Other specified anxiety disorders; Z79.891 Long term (current) use of opiate analgesic; Z90.2 Acquired absence of lung [part of]; Z86.19 Personal history of other infectious and parasitic diseases; Z85.118 Personal history of other malignant neoplasm of bronchus and lung
CPT/HCPCS: 36591; 77336; 77386; 80053; 85025; 96367; 96372; 96413; 96417; 99214; J1100; J1200; J1442; J2469; J3490; J7050; J9045; J9264

== ENCOUNTER 2019-12-28 05:51 | Outpatient (RCR) | payer OTHER, SELFPAY ==
[2019-12-17 11:24] LABS: Eosinophils # 0.1 10^3/uL (0.0-0.8); Eosinophils % 3.2 %; Hematocrit 36.8 % (42.0-52.0); Hemoglobin 11.9 g/dL (11.7-16.6); Lymphocytes # 1.3 10^3/uL (0.8-4.8); Lymphocytes % 32.4 %; Mean Corpuscular HGB Conc 32.3 g/dL (30.0-36.0); Mean Corpuscular Hemoglobin 31.6 pg (28.0-34.0); Mean Corpuscular Volume 97.9 fL (80-94); Mean Platelet Volume 9.6 fL (7.4-10.4); Monocytes # 0.6 10^3/uL (0.2-0.9); Monocytes % 13.5 %; Neutrophils # 2.04 10^3/uL (1.8-7.7); Neutrophils % 49.9 %; Nucleated Red Blood Cells % 0 %; Platelet Count 215 10^3/cmm (130-400); Red Blood Count 3.76 10^6/uL (4.1-5.3); Red Cell Distribution Width 16.4 % (12.1-15.1); White Blood Count 4.1 10^3/uL (4.0-10.0)
[2019-12-17 12:32] LABS: Alanine Aminotransferase 8 U/L (0-41); Albumin Level 3.9 g/dL (3.5-5.2); Alkaline Phosphatase 76 IU/L (40-130); Anion Gap 12.6 (5-19); Aspartate Amino Transferase 16 U/L (0-40); Blood Urea Nitrogen 8 mg/dL (8-23); Calcium 8.9 mg/dL (8.5-10.5); Carbon Dioxide 27 mmol/L (22-29); Chloride 101 mmol/L (98-107); Globulin 3.5 g/dL (1.3-4.6); Glomerular Filtration Rate 134.8 mL/min (90-130); Glucose 190 mg/dL (65-115); Osmolality Calculated 287 mOsm/kg (285-295); Potassium 3.6 mmol/L (3.5-5.1); Sodium 137 mmol/L (136-145); Total Bilirubin 0.3 mg/dL (0.15-1.2); Total Protein 7.4 g/dL (6.6-8.7)
--- NOTE | 2019-12-18 07:43 | ONC FU_ITS ---
Dr. Grissom Patient Follow-Up Note Patient: Satish Fry Unit #: [id number]: 1955 Dicatated By: Gino Grissom M.D.Date of Visit:Dec 17, 2019 Onc Med Follow-up/Prog Note Chief Complaint: Lung cancer. History of Present Illness: This is a 63 year-old man with non-small cell lung cancer. On 09/04/2012 he underwent left upper lobectomy with mediastinal lymphadenectomy for grade 3/4 adenocarcinoma, stage IB (T2a, N0, M0). The primary tumor measured 3.1 x 3.0 x 2.6 cm. There was no involvement in a total of 14 lymph nodes. I had seen him for medical oncology consultation on 09/28/2012. He received no further treatment, as there appeared to be no indication for postoperative chemotherapy or radiation. On 07/20/2019 he had presented to the emergency room with chest pain and shortness of breath. His CT pulmonary angiogram showed no evidence of pulmonary embolism. However, he was noted to have a 3.3 x 3.8 cm right hilar mass encasing the central right bronchopulmonary structures. There was invasion into the superior right pulmonary vein. There was additional subcarinal lymph node measuring 1.2 cm. Groundglass attenuation along the right minor fissure appeared compatible with either pneumonitis or lymphangitic spread of tumor. Staging PET/CT on 08/18/2019 showed perihilar mass in the right upper lobe measuring 2.8 cm in diameter with SUV 13.5, consistent with malignancy. A secondary right hilar lymph node measuring 1.4 x 2.5 cm with SUV 9.5, consistent with metastatic disease. The subcarinal lymph node did not demonstrate significant FDG activity and other mediastinal lymph nodes appeared radiographically benign and FDG negative. On 08/22/2019 he underwent bronchoscopy/EBUS with transbronchial needle aspiration biopsy of station 7 and station 10R lymph nodes. There were no endobronchial lesions identified. Pathology on the station 7 lymph node showed benign reactive lymph node with no evidence of dysplastic or neoplastic process. The 10R lymph node showed metastatic non-small cell carcinoma favoring squamous cell carcinoma. On 10/09/2019 he began radiation concurrently with weekly carboplatin/paclitaxel chemotherapy. His initial treatment was complicated by significant hyperglycemia and anxiety associated with the steroid premedication. His week 2 treatment was held due to neutropenia. He continued chemotherapy on 10/22/2019 with his treatment changed to carboplatin/Abraxane. He tolerated the chemotherapy much better with the Abraxane substituted for the paclitaxel. He was able to continue with his 3ird weekly chemotherapy dosage on 10/29/2019 and with week 4 on 11/05/2019. His further chemotherapy was put on hold due to neutropenia. He completed his radiation on 11/20/2019, total dose 6000 cGy. He is seen for a followup visit. He has been scheduled to have a repeat chest CT next week. He says he is feeling pretty good, though he is still lacking energy. His ECOG score is 1. His appetite is good. He does not have fever or night sweats. He has shortness of breath if he overdoes it. He still has cough, but not as bad. He does not complain of chest pain. He is having quite a bit of heartburn, despite taking omeprazole. He has no other GI or complaints. He has joint pain everywhere, that is chronic. He does not complain of headache or dizziness. He has no focal neurologic symptoms. Medications: Benadryl Allergy 1 Tablet (of 25 mg) Tablet Oral daily PRN, Cetirizine HCl 1 Tablet (of 10 mg) Oral daily, Diclofenac 1 Capsule Oral daily PRN, Gabapentin 1 (300 mg) Capsule Oral t.i.d., Omeprazole 1 Tablet (of 20 mg) Tablet, enteric coated Oral daily, oxyCODONE HCl 1 Tablet (of 10 mg) Oral t.i.d. PRN, Tamsulosin HCl 1 Capsule (of 0.4 mg) Oral daily, Vitamin D 2 Capsule Oral daily Allergies: PENICILLIN and Statins. Review of Systems: Constitutional - He is still lacking energy. Appetite is good and weight is stable. No fever or night sweats. ECOG score is 1, ENMT - No sinus congestion/drainage. No mouth sores. No sore throat or difficulty swallowing, Hematologic/Lymphatic - He has some bruising, Respiratory - He has shortness of breath if he overdoes it. He has cough, but nit as bad. No pleuritic pain or hemoptysis, Cardiovascular - No angina pain. No palpitations, Gastrointestinal - No nausea or vomiting. He has quite a bit of acid reflux. No diarrhea or constipation. No blood in the stool or black stools, Genitourinary (M) - No dysuria or hematuria. No urinary frequency. No urgency or incontinence, Musculoskeletal - He has joint pain everywhere, Neurologic - No headache or dizziness. No numbness or tingling. No other focal neurologic symptoms, Psychiatric - He has some anxiety/depression. No insomnia. Vital Signs: Performed on Dec 17, 2019 12:27 Height - 68.50 in Weight - 204.4 lbs (LOW) BSA - 2.07 sq.m BMI - 30.63 (HIGH) Temperature - 97.8 F (LOW) Pulse - 104 /min (HIGH) Respiration - 24 /min BP - 142/72 mm(hg) (HIGH) O2 Sat - 94 % (LOW) Pain - 0 Physical Examination: Constitutional - He looks pretty good generally, Eyes - Sclerae nonicteric. Conjunctivae clear, ENMT - No lesions noted in the oral cavity, Hematologic/Lymphatic - No cervical, clavicular, or axillary adenopathy, Respiratory - Lungs are clear with diminished air movement bilaterally, Cardiovascular - Heart rhythm is regular. There is no murmur, gallop, or rub noted, Abdomen - Soft. Liver and spleen are not enlarged. There is no abdominal mass or ascites noted and there is no inguinal adenopathy, Extremities - No edema, Neurologic - No focal neurologic deficits noted. Lab/Imaging: Test performed on Dec 17, 2019 11:00 Sodium 137 mmol/L Potassium 3.6 mmol/L Chloride 101 mmol/L CO2 27 mmol/L Anion Gap 12.6 BUN 8 mg/dL Creatinine 0.6 mg/dL Cr Clearance (Est) 163.0100 mL/min eGFR 134.8 mL/min Glucose 190 mg/dL Osmolality - Calculated 287 mOsm/kg Calcium 8.9 mg/dL Protein, Total 7.4 g/dL Albumin 3.9 g/dL Globulin 3.5 g/dL Bilirubin, Total 0.3 mg/dL ALT (SGPT) 8 U/L AST (SGOT) 16 U/L Alkaline Phosphatase 76 IU/L WBC 4.1 10 3/uL RBC 3.76 10 6/uL HGB 11.9 g/dL HCT 36.8 % MCV 97.9 fL MCH 31.6 pg MCHC 32.3 g/dL RDW 16.4 % Platelet Count 215 10 3/cmm MPV 9.6 fL Neutrophils 2.04 10 3/uL Lymphocytes 1.3 10 3/uL Monocytes 0.6 10 3/uL Eosinophils 0.1 10 3/uL Basophils 0.0 10 3/uL Neutrophil % 49.9 % Lymphocyte % 32.4 % Monocyte % 13.5 % Eosinophil % 3.2 % Basophils % 1.0 % NRBC % 0 % Impression: 1. Patient with grade 3/4 adenocarcinoma involving the upper lobe of the left lung, stage IB (T2a, N0, M0), for which he underwent thoracotomy with left upper lobectomy and mediastinal lymphadenectomy on 09/04/2012. 2. He now has biopsy-proven non-small cell carcinoma involving her right hilar mass. Pathology favored squamous cell carcinoma. Given the interval from his surgery, the location of the mass, and the histology, that appears to be most likely a second primary malignancy. By PET/CT there appears to be additional right hilar adenopathy so that by clinical evaluation his disease appears to be stage IIB (T2a, N1, M0). His other medical illnesses include: 3. COPD. 4. Hypertension. 5. Dyslipidemia. 6. Coronary artery disease with previous myocardial infarction. 7. Degenerative arthritis. 8. History of treated hepatitis C. 9. History of abdominal aortic aneurysm for which he underwent endograft repair in 2010. 10. Posttraumatic stress disorder with anxiety/depression. He began radiation concurrently with weekly carboplatin/paclitaxel on 10/09/2019. His initial chemotherapy treatment was complicated by hyperglycemia and anxiety associated with the steroid premedication. His week 2 treatment was deferred due to neutropenia. He then continued with his treatment on 10/22/2019 with Abraxane substituted for the paclitaxel, which he tolerated much better. He was then able to continue with chemotherapy weekly. As of 11/12/2019 he received his 5th weekly chemotherapy treatment. His further chemotherapy was held due to neutropenia. He completed radiation on 11/20/2019, total dose 6000 cGy. Overall, he tolerated the treatment very well. He has not yet been evaluated for response. Plan: He is scheduled for restaging CT next week. If he has shown response without evidence of disease progression, he will be eligible to start maintenance immunotherapy with durvalumab. I did review those side effects, and he is agreeable to treatment if he qualifies. In the meantime, I also will see if I get his PPI changed to Protonix. Signed By: Gino Grissom M.D. <<Signature on File>>
--- NOTE | 2019-12-24 08:42 | CT_ITS ---
WS: [id number] Exam: CT chest w con* [id number] Date/Time of Exam: 12/24/2019 9:00 AM Reason For Exam: MALIGNANT NEOPLASM RIGHT MAIN BRONCHUS AND UPPER LOBE LEFT B DLP: 1006.[address] scans at [facility] use at least one of these dose optimization techniques: automat ed exposure control; mA and/or kV adjustment per patient size (includes targeted exams where dose is matched to clinical indication); or iterative reconstruction. 100 mL of nonionic contrast administere d intravenously. Comparison with the CT PE scan of the chest performed 07/20/2019. Previously noted right hilar mass is significantly smaller than noted on previous exam. Subcarinal ly mphadenopathy is unchanged. The airway is patent. The thoracic aorta is normal in caliber. The centra l pulmonary arteries are clear. No pleural or pericardial effusion. The lungs are fully expanded and otherwise clear. No destructive bone lesions are seen. A partially visualized aortic graft is noted i n the abdomen. CT/CT chest w con* [id number] IMPRESSION: 1. Previously noted right hilar mass shows significant reduction in size and is hardly discernible on today's exam. 2. Subcarinal lymphadenopathy is unchanged.
[2019-12-24] MEDS: iohexol 300 mg/mL 100 mL Btl IV (09:14)
--- NOTE | 2019-12-28 09:27 | ONCRAD EPV_ITS ---
Radiation Oncology Established Patient Note Patient: Satish Fry MR#: [id number] : 1955> Attending Physician: Win Robles M.D. Date of Service: 12/28/2019 Satish Fry returned to my office this morning for a routinely scheduled follow-up appointment. He completed thoracic radiotherapy in November for the management of his squamous cell carcinoma of the right upper lobe of the lung. Non-small cell lung cancer. Daily radiotherapy was administered between the dates of October 09, 2019 through 2019. ???A prescribed dose of 60 Gy was delivered in 30 fractions encompassing 42 elapsed days. On review of systems, the patient denied any constitutional complaints including unintentional weight loss or fevers of unknown origin. He did not report any pulmonary complaints except for an intermittent cough. On physical examination, the patient weighed 204 pounds. The temperature is 98.9 ???F. The blood pressure was 124/81 mmHg. The pulse was 96 bpm and respiratory rate was 18 breaths per minute. Oxygen saturation was 93% with ambient air. Skin of the anterior chest wall demonstrated mild erythema with hyperpigmentation present. Auscultation of the posterior lung feliz revealed bronchovesicular breath sounds and right sided rales. In summary, the patient returned for a routine post radiotherapy follow-up. A thoracic CT scan performed on December 24, 2019 identified a significant reduction in the right hilar mass and no change in the sub-carinal lymphadenopathy. He would continue follow-up with his medical oncologist, Signed by: Dr. Win Robles 12/28/2019 9:24:50 AM
== END 2020-01-02 11:00 | disposition home or self-care (01) ==
LOC: ONCMED 05:51
PROVIDERS: Internal Medicine Medical Oncology; PCP Emergency Medicine Emergency Medical Services; Visit Provider Radiology Radiation Oncology
DX: C34.01 Malignant neoplasm of right main bronchus (principal); C34.12 Malignant neoplasm of upper lobe, left bronchus or lung; Z90.2 Acquired absence of lung [part of]; J44.9 Chronic obstructive pulmonary disease, unspecified; I10 Essential (primary) hypertension; E78.5 Hyperlipidemia, unspecified; I25.10 Atherosclerotic heart disease of native coronary artery without angina pectoris; I25.2 Old myocardial infarction; M19.90 Unspecified osteoarthritis, unspecified site; F41.8 Other specified anxiety disorders; F43.10 Post-traumatic stress disorder, unspecified; Z86.19 Personal history of other infectious and parasitic diseases; Z92.3 Personal history of irradiation
CPT/HCPCS: 36591; 71260; 80053; 85025; 99214; Q9967

== ENCOUNTER 2020-01-02 11:05 | Outpatient (CLI) | payer OTHER, SELFPAY ==
--- NOTE | 2020-01-02 11:14 | USCV_ITS ---
Satish Age: 64 Gender: M : 1955 Exam Date: 01/02/2020 11:02 Ordering Phys: Rico Winters DO Technologist: Esteban Hernandez Exam Location: [facility] Indication: lower extremity pain with walking RIGHT LEFT Brachial 138.00 mmHg Brachial 144.00 mmHg Pressure (mmHg) Waveform Pressure (mmHg) Waveform 174.00 RISK MANAGEMENT MANAGER 192.00 165.00 DPA 178.00 1.21 Ankle/Brachial Index 1.33 128.00 Pre-Exercise Toe Pressure 171.00 0.89 Pre-Exercise Toe/Brachial Index 1.19 FINDINGS Normal resting ABIs bilaterally Normal resting TBIs bilaterally CONCLUSIONS No significant arterial obstruction, based on the above findings. Dr Jaison Winters MD FACC (Electronically Signed) Final Date: 04 January 2020 19:22 S
== END 2020-01-02 11:06 | disposition home or self-care (01) ==
LOC: RAD 11:08
PROVIDERS: PCP Emergency Medicine Emergency Medical Services; Visit Provider Emergency Medicine Emergency Medical Services
DX: M79.604 Pain in right leg (principal); M79.605 Pain in left leg
CPT/HCPCS: 93922

== ENCOUNTER 2020-01-07 10:55 | Outpatient (RCR) | payer OTHER, SELFPAY ==
--- NOTE | 2020-01-11 10:46 | ONC FU_ITS ---
Dr. Grissom Patient Follow-Up Note Patient: Satish Fry Unit #: [id number]: 1955 Dicatated By: Gino Grissom M.D.Date of Visit:Jan 07, 2020 Onc Med Follow-up/Prog Note Chief Complaint: Lung cancer. History of Present Illness: This is a 63 year-old man with non-small cell lung cancer. On 09/04/2012 he underwent left upper lobectomy with mediastinal lymphadenectomy for grade 3/4 adenocarcinoma, stage IB (T2a, N0, M0). The primary tumor measured 3.1 x 3.0 x 2.6 cm. There was no involvement in a total of 14 lymph nodes. I had seen him for medical oncology consultation on 09/28/2012. He received no further treatment, as there appeared to be no indication for postoperative chemotherapy or radiation. On 07/20/2019 he had presented to the emergency room with chest pain and shortness of breath. His CT pulmonary angiogram showed no evidence of pulmonary embolism. However, he was noted to have a 3.3 x 3.8 cm right hilar mass encasing the central right bronchopulmonary structures. There was invasion into the superior right pulmonary vein. There was additional subcarinal lymph node measuring 1.2 cm. Groundglass attenuation along the right minor fissure appeared compatible with either pneumonitis or lymphangitic spread of tumor. Staging PET/CT on 08/18/2019 showed perihilar mass in the right upper lobe measuring 2.8 cm in diameter with SUV 13.5, consistent with malignancy. A secondary right hilar lymph node measuring 1.4 x 2.5 cm with SUV 9.5, consistent with metastatic disease. The subcarinal lymph node did not demonstrate significant FDG activity and other mediastinal lymph nodes appeared radiographically benign and FDG negative. On 08/22/2019 he underwent bronchoscopy/EBUS with transbronchial needle aspiration biopsy of station 7 and station 10R lymph nodes. There were no endobronchial lesions identified. Pathology on the station 7 lymph node showed benign reactive lymph node with no evidence of dysplastic or neoplastic process. The 10R lymph node showed metastatic non-small cell carcinoma favoring squamous cell carcinoma. On 10/09/2019 he began radiation concurrently with weekly carboplatin/paclitaxel chemotherapy. His initial treatment was complicated by significant hyperglycemia and anxiety associated with the steroid premedication. His week 2 treatment was held due to neutropenia. He continued chemotherapy on 10/22/2019 with his treatment changed to carboplatin/Abraxane. He tolerated the chemotherapy much better with the Abraxane substituted for the paclitaxel. He was able to continue with his 3ird weekly chemotherapy dosage on 10/29/2019 and with week 4 on 11/05/2019. His further chemotherapy was put on hold due to neutropenia. He completed his radiation on 11/20/2019, total dose 6000 cGy. His restaging chest CT on 12/24/2019 showed significant decrease in the right hilar mass, noted to be hardly discernible on the current study. Subcarinal lymphadenopathy appeared unchanged. He is seen for a follow-up visit. He has been feeling pretty good generally, though he says he does not have much energy. He is able to do light work. ECOG score is 1. He has good appetite. He has no fever or night sweats. He does have some shortness of breath, but his breathing overall has been pretty good. He does not have cough and he does not complain of chest pain. He has some arthritis pain, which is about the same. He has no headache or dizziness and he has no focal neurologic symptoms. Medications: Benadryl Allergy 1 Tablet (of 25 mg) Tablet Oral daily PRN, Cetirizine HCl 1 Tablet (of 10 mg) Oral daily, Diclofenac 1 Capsule Oral daily PRN, Gabapentin 1 (300 mg) Capsule Oral t.i.d., oxyCODONE HCl 1 Tablet (of 10 mg) Oral t.i.d. PRN, Pantoprazole Sodium 1 Tablet (of 40 mg) Tablet, enteric coated Oral daily, Tamsulosin HCl 1 Capsule (of 0.4 mg) Oral daily, Vitamin D 2 Capsule Oral daily Allergies: PENICILLIN and Statins. Review of Systems: Constitutional - He does not have much energy, but he is still doing light work. Appetite is good and weight is stable. No fever, night sweats, or hot flashes. ECOG score is 1, ENMT - No sinus congestion/drainage. No mouth sores. No sore throat or difficulty swallowing, Hematologic/Lymphatic - He has some bruising., Respiratory - He does have some shortness of breath, but his breathing has been pretty good. No cough. No pleuritic pain or hemoptysis, Cardiovascular - No angina pain. No palpitations, Gastrointestinal - No nausea or vomiting. No heartburn or acid reflux. No diarrhea or constipation. No blood in the stool or black stools, Genitourinary (M) - No dysuria or hematuria. No urinary frequency. No urgency or incontinence, Musculoskeletal - He has arthritis pain, which is about the same, Integumentary - No skin rash, Neurologic - No headache or dizziness. No numbness or tingling. No other focal neurologic symptoms, Psychiatric - No anxiety or depression. No insomnia. Vital Signs: Performed on Jan 07, 2020 10:53 Height - 68.50 in Weight - 204.0 lbs BSA - 2.07 sq.m BMI - 30.57 (HIGH) Temperature - 98.7 F Pulse - 98 /min Respiration - 16 /min BP - 146/68 mm(hg) (HIGH) O2 Sat - 93 % (LOW) Pain - 4 Physical Examination: Constitutional - He looks pretty good generally, Eyes - Sclerae nonicteric. Conjunctivae clear, ENMT - No lesions noted in the oral cavity, Hematologic/Lymphatic - No cervical, clavicular, or axillary adenopathy, Respiratory - Lungs are clear with diminished air movement bilaterally, Cardiovascular - Heart rhythm is regular. There is no murmur, gallop, or rub noted, Abdomen - Soft. Liver and spleen are not enlarged. There is no abdominal mass or ascites noted and there is no inguinal adenopathy, Extremities - No edema, Neurologic - No focal neurologic deficits noted. Impression: 1. Patient with grade 3/4 adenocarcinoma involving the upper lobe of the left lung, stage IB (T2a, N0, M0), for which he underwent thoracotomy with left upper lobectomy and mediastinal lymphadenectomy on 09/04/2012. 2. He now has biopsy-proven non-small cell carcinoma involving her right hilar mass. Pathology favored squamous cell carcinoma. Given the interval from his surgery, the location of the mass, and the histology, that appears to be most likely a second primary malignancy. By PET/CT there appears to be additional right hilar adenopathy so that by clinical evaluation his disease appears to be stage IIB (T2a, N1, M0). His other medical illnesses include: 3. COPD. 4. Hypertension. 5. Dyslipidemia. 6. Coronary artery disease with previous myocardial infarction. 7. Degenerative arthritis. 8. History of treated hepatitis C. 9. History of abdominal aortic aneurysm for which he underwent endograft repair in 2010. 10. Posttraumatic stress disorder with anxiety/depression. He began radiation concurrently with weekly carboplatin/paclitaxel on 10/09/2019. His initial chemotherapy treatment was complicated by hyperglycemia and anxiety associated with the steroid premedication. His week 2 treatment was deferred due to neutropenia. He then continued with his treatment on 10/22/2019 with Abraxane substituted for the paclitaxel, which he tolerated much better. He was then able to continue with chemotherapy weekly. As of 11/12/2019 he received his 5th weekly chemotherapy treatment. His further chemotherapy was held due to neutropenia. He completed radiation on 11/20/2019, total dose 6000 cGy. Overall, he tolerated the treatment very well. He appears to have had a very good response by follow-up chest CT on 12/24/2019. Plan: As he has had a good response to the chemoradiation, he will be eligible now to begin maintenance immunotherapy with durvalumab. Treatment will be started pending verification of insurance coverage. Side effects were reviewed, including the potential for pneumonitis. Signed By: Gino Grissom M.D. <<Signature on File>>
== END 2020-01-07 23:59 | disposition home or self-care (01) ==
LOC: ONCMED 10:55
PROVIDERS: PCP Emergency Medicine Emergency Medical Services; Visit Provider Radiology Radiation Oncology
DX: C34.12 Malignant neoplasm of upper lobe, left bronchus or lung (principal); C34.01 Malignant neoplasm of right main bronchus; J44.9 Chronic obstructive pulmonary disease, unspecified; I10 Essential (primary) hypertension; E78.5 Hyperlipidemia, unspecified; I25.10 Atherosclerotic heart disease of native coronary artery without angina pectoris; I25.2 Old myocardial infarction; M19.90 Unspecified osteoarthritis, unspecified site; F41.8 Other specified anxiety disorders; Z90.2 Acquired absence of lung [part of]; F43.10 Post-traumatic stress disorder, unspecified; Z92.21 Personal history of antineoplastic chemotherapy; Z92.3 Personal history of irradiation; Z86.19 Personal history of other infectious and parasitic diseases
CPT/HCPCS: 99214

== ENCOUNTER 2020-01-29 05:42 | Outpatient (RCR) | payer OTHER, SELFPAY ==
[2020-01-16] MEDS: sodium chloride 0.9% (100 ml) 100 ML 50 ML (13:30)
[2020-01-29 13:25] LABS: Basophils % 0.6 %; Eosinophils # 0.4 10^3/uL (0.0-0.8); Eosinophils % 6.2 %; Hematocrit 47.2 % (42.0-52.0); Hemoglobin 15.2 g/dL (11.7-16.6); Lymphocytes # 1.6 10^3/uL (0.8-4.8); Lymphocytes % 25.2 %; Mean Corpuscular HGB Conc 32.2 g/dL (30.0-36.0); Mean Corpuscular Hemoglobin 32.4 pg (28.0-34.0); Mean Corpuscular Volume 100.6 fL (80-94); Mean Platelet Volume 9.5 fL (7.4-10.4); Monocytes # 0.7 10^3/uL (0.2-0.9); Monocytes % 10.7 %; Neutrophils # 3.61 10^3/uL (1.8-7.7); Nucleated Red Blood Cells % 0 %; Platelet Count 196 10^3/cmm (130-400); Red Blood Count 4.69 10^6/uL (4.1-5.3); Red Cell Distribution Width 13.1 % (12.1-15.1); White Blood Count 6.3 10^3/uL (4.0-10.0)
[2020-01-29 13:55] LABS: Alanine Aminotransferase 9 U/L (0-41); Albumin Level 4.2 g/dL (3.5-5.2); Alkaline Phosphatase 76 IU/L (40-130); Anion Gap 13.7 (5-19); Aspartate Amino Transferase 15 U/L (0-40); Blood Urea Nitrogen 9 mg/dL (8-23); Calcium 9.3 mg/dL (8.5-10.5); Carbon Dioxide 26 mmol/L (22-29); Chloride 99 mmol/L (98-107); Globulin 3.5 g/dL (1.3-4.6); Glomerular Filtration Rate 112.8 mL/min (90-130); Glucose 146 mg/dL (65-115); Osmolality Calculated 281 mOsm/kg (285-295); Potassium 3.7 mmol/L (3.5-5.1); Sodium 135 mmol/L (136-145); Thyroid Stimulating Hormone 0.74 uIU/mL (0.27-4.20); Total Bilirubin 0.4 mg/dL (0.15-1.2); Total Protein 7.7 g/dL (6.6-8.7)
--- NOTE | 2020-01-29 23:15 | ONC FU_ITS ---
[facility] Patient Note Patient: Satish Fry Unit #: [id number]: 1955 Dictated By: Santino ChristensenDate of Visit: Jan 29, 2020 Onc MED Follow-Up/Prog Note Chief Complaint: Lung cancer. History of Present Illness: Mr Fry is a 64 year-old man with non-small cell lung cancer. On 09/04/2012 he underwent left upper lobectomy with mediastinal lymphadenectomy for grade 3/4 adenocarcinoma, stage IB (T2a, N0, M0). The primary tumor measured 3.1 x 3.0 x 2.6 cm. There was no involvement in a total of [address] Grissom had seen him for medical oncology consultation on 09/28/2012. He received no further treatment, as there appeared to be no indication for postoperative chemotherapy or radiation. On 07/20/2019 he had presented to the emergency room with chest pain and shortness of breath. His CT pulmonary angiogram showed no evidence of pulmonary embolism. However, he was noted to have a 3.3 x 3.8 cm right hilar mass encasing the central right bronchopulmonary structures. There was invasion into the superior right pulmonary vein. There was additional subcarinal lymph node measuring 1.2 cm. Groundglass attenuation along the right minor fissure appeared compatible with either pneumonitis or lymphangitic spread of tumor. Staging PET/CT on 08/18/2019 showed perihilar mass in the right upper lobe measuring 2.8 cm in diameter with SUV 13.5, consistent with malignancy. A secondary right hilar lymph node measuring 1.4 x 2.5 cm with SUV 9.5, consistent with metastatic disease. The subcarinal lymph node did not demonstrate significant FDG activity and other mediastinal lymph nodes appeared radiographically benign and FDG negative. On 08/22/2019 he underwent bronchoscopy/EBUS with transbronchial needle aspiration biopsy of station 7 and station 10R lymph nodes. There were no endobronchial lesions identified. Pathology on the station 7 lymph node showed benign reactive lymph node with no evidence of dysplastic or neoplastic process. The 10R lymph node showed metastatic non-small cell carcinoma favoring squamous cell carcinoma. On 10/09/2019 he began radiation concurrently with weekly carboplatin/paclitaxel chemotherapy. His initial treatment was complicated by significant hyperglycemia and anxiety associated with the steroid premedication. His week 2 treatment was held due to neutropenia. He continued chemotherapy on 10/22/2019 with his treatment changed to carboplatin/Abraxane. He tolerated the chemotherapy much better with the Abraxane substituted for the paclitaxel. He was able to continue with his 3ird weekly chemotherapy dosage on 10/29/2019 and with week 4 on 11/05/2019. His further chemotherapy was put on hold due to neutropenia. He completed his radiation on 11/20/2019, total dose 6[address] His [address]aging chest CT on 12/24/2019 showed significant decrease in the right hilar mass, noted to be hardly discernible on the current study. Subcarinal lymphadenopathy appeared unchanged. It was felt that he had significant response to the chemotherapy and he was started on maintenance durvalumab on 01/16/2020. He has tolerated it well thus far. Mr. Fry is here today for follow-up. He is due for cycle 2 durvalumab. He states overall he feels really good. He has had no increase in shortness of breath orthopnea. He denies any pain with breathing. He denies any cough or hemoptysis. He states he does have some shortness of breath that comes and goes but is no worse than what it has been over the last couple of months. He denies any diarrhea or abdominal pain. He denies any confusion or disorientation. He denies any headaches or vision changes. He states he is eating good. His energy is fair but no worse than what it has been over the last couple of months as well. He denies any pain. He denies any neuropathy. He denies fever or chills. He states overall he feels pretty good for me . His ECOG is 1. Past Medical History: Abdominal aortic aneurysm Anxiety Chronic obstructive pulmonary disease Coronary artery disease Degenerative arthritis Depression Dyslipidemia History of treated hepatitis C Hypertension Post traumatic stress disorder Past Surgical History: Repair of abdominal aortic aneurysm Umbilical hernia repair Left upper lobectomy in 2013 Endograft repair of abdominal aortic aneurysm in 2010 Allergies: PENICILLIN and Statins. Medications: Benadryl Allergy 1 Tablet (of 25 mg) Tablet Oral daily PRN Cetirizine HCl 1 Tablet (of 10 mg) Oral daily Diclofenac 1 Capsule Oral daily PRN Fish Oil 1 Capsule Oral daily Gabapentin 1 (300 mg) Capsule Oral t.i.d. oxyCODONE HCl 1 Tablet (of 10 mg) Oral t.i.d. PRN Pantoprazole Sodium 1 Tablet (of 40 mg) Tablet, enteric coated Oral daily Tamsulosin HCl 1 Capsule (of 0.4 mg) Oral daily Vitamin D 2 Capsule Oral daily Family History: Mr. Fry's mother at age 83: Brain aneurysm. Mr. Fry's father at age 64: prostate cancer. His paternal grandfather is : pancreatic cancer. Mr. Fry has 1 brother who is : liver cancer. He has 1 paternal aunt who is : lung cancer. He has 1 maternal uncle who is : lymphoma. Father of prostate cancer at age 64. Mother with a cerebral aneurysm at age 83. A brother with liver cancer at age 56. His paternal grandfather had pancreatic cancer, a maternal uncle had lymphoma, and a paternal aunt had lung cancer. Social History: Mr. Fry is and he is an on disability. He is a daily smoker who has smoked 0.5 packs/day for 50 years. He drinks occasionally. He consumes 2 drinks/day 7 days/week. He has indicated exposure to the following products: cigarettes. Mr. Fry reports the following support systems: lives with spouse, significant other, family, or friends, lives in own house, supportive family/friends willing to assist with needs, and adequate transportation available for expected visits. His diet consists of regular meals. He indicates his activity level as: regular exercise. 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 He has a history of smoking 2 packs of cigarettes daily for 50 years. Review Of Symptoms: Constitutional Denies fevers, chills, night sweats, excessive fatigue or weight loss. Allergic/Immunologic No reactions. Eyes Denies significant visual changes. No diplopia. No amaurosis. ENMT Denies changes in hearing, sore throat, mouth sores, difficulty or changes in swallowing ability, and/or sinus drainage. Hematologic/Lymphatic Denies easy bruising or bleeding. The patient denies any tender or palpable lymph nodes. Respiratory Denies worsening dyspnea on exertion, chest pain, cough or hemoptysis. Denies orthopnea. Cardiovascular Denies anginal chest pain, palpitations or orthopnea. Gastrointestinal Denies nausea, vomiting, diarrhea, GI bleeding, or constipation. Denies change in bowel habits and/or stool color, no heartburn or early satiety. Genitourinary (M) Denies hematuria, dysuria, increased frequency, urgency, hesitancy or incontinence. Musculoskeletal Denies joint pain, swelling or redness. No decreased range of motion. Integumentary Denies chronic rashes, inflammation, ulcerations or skin changes. Neurologic Denies headache, blurred vision, and no areas of focal weakness or numbness. Normal gait. No sensory problems. Psychiatric Denies insomnia, depression, pawel or mood swings. Vital Signs: Performed on Jan 29, 2020 14:24 Height - 68.50 in Weight - 202.2 lbs (LOW) BSA - 2.06 sq.m BMI - 30.30 (HIGH) Temperature - 98.8 F Pulse - 97 /min Respiration - 16 /min BP - 145/85 mm(hg) (HIGH) O2 Sat - 94 % (LOW) Pain - 0,1 - No physically strenuous activity, but ambulatory and able to carry out light or sedentary work (e.g. office work, light house work). (ECOG) Physical Examination: Constitutional Alert, oriented, no acute distress. Skin pink, warm and dry. Head Normocephalic; atraumatic. Eyes Conjunctivae and sclerae are clear and without icterus. Pupils are reactive and equal. Neck Supple without masses or thyromegaly. No jugular venous distension. Hematologic/Lymphatic No petechiae or purpura. No tender or palpable lymph nodes in the cervical or supraclavicular areas. Respiratory Lungs are clear to auscultation without rhonchi or wheezing. Cardiovascular Regular rate and rhythm of heart without murmurs,clicks, gallops or rubs. Abdomen Non-tender, non-distended, no masses or ascites. Good bowel sounds noted in all quads. No guarding or rebound tenderness. No pulsatile masses. Back/Spine Non-tender to palpation. Extremities No visible deformities, no cyanosis, clubbing or edema. Musculoskeletal No tenderness or swelling, normal range of motion without obvious weakness. Integumentary No rashes or lesions. Neurologic No sensory or motor deficits, normal cerebellar function, normal gait. Psychiatric Alert and oriented times three. Coherent speech. Verbalizes understanding of our discussions today. Laboratory:Test performed on Jan 29, 2020 13:10 Sodium 135 mmol/L TSH 0.74 uIU/mL Potassium 3.7 mmol/L Chloride 99 mmol/L CO2 26 mmol/L Anion Gap 13.7 BUN 9 mg/dL Creatinine 0.7 mg/dL Cr Clearance (Est) 135.8600 mL/min eGFR 112.8 mL/min Glucose 146 mg/dL Osmolality - Calculated 281 mOsm/kg Calcium 9.3 mg/dL Protein, Total 7.7 g/dL Albumin 4.2 g/dL Globulin 3.5 g/dL Bilirubin, Total 0.4 mg/dL ALT (SGPT) 9 U/L AST (SGOT) 15 U/L Alkaline Phosphatase 76 IU/L WBC 6.3 10 3/uL RBC 4.69 10 6/uL HGB 15.2 g/dL HCT 47.2 % MCV 100.6 fL MCH 32.4 pg MCHC 32.2 g/dL RDW 13.1 % Platelet Count 196 10 3/cmm MPV 9.5 fL Neutrophils 3.61 10 3/uL Lymphocytes 1.6 10 3/uL Monocytes 0.7 10 3/uL Eosinophils 0.4 10 3/uL Basophils 0.0 10 3/uL Neutrophil % 57.0 % Lymphocyte % 25.2 % Monocyte % 10.7 % Eosinophil % 6.2 % Basophils % 0.6 % NRBC % 0 % Impression: 1. Patient with grade 3/4 adenocarcinoma involving the upper lobe of the left lung, stage IB (T2a, N0, M0), for which he underwent thoracotomy with left upper lobectomy and mediastinal lymphadenectomy on 09/04/2012. 2. He now has biopsy-proven non-small cell carcinoma involving her right hilar mass. Pathology favored squamous cell carcinoma. Given the interval from his surgery, the location of the mass, and the histology, that appears to be most likely a second primary malignancy. By PET/CT there appears to be additional right hilar adenopathy so that by clinical evaluation his disease appears to be stage IIB (T2a, N1, M0). His other medical illnesses include: 3. COPD. 4. Hypertension. 5. Dyslipidemia. 6. Coronary artery disease with previous myocardial infarction. 7. Degenerative arthritis. 8. History of treated hepatitis C. 9. History of abdominal aortic aneurysm for which he underwent endograft repair in 2010. 10. Posttraumatic stress disorder with anxiety/depression. He began radiation concurrently with weekly carboplatin/paclitaxel on 10/09/2019. His initial chemotherapy treatment was complicated by hyperglycemia and anxiety associated with the steroid premedication. His week 2 treatment was deferred due to neutropenia. He then continued with his treatment on 10/22/2019 with Abraxane substituted for the paclitaxel, which he tolerated much better. He was then able to continue with chemotherapy weekly. As of 11/12/2019 he received his 5th weekly chemotherapy treatment. His further chemotherapy was held due to neutropenia. He completed radiation on 11/20/2019, total dose 6000 cGy. Overall, he tolerated the treatment very well. He appears to have had a very good response by follow-up chest CT on 12/24/2019. Mr. Fry began maintenance immunotherapy with durvalumab on 01/16/2020. He has tolerated it well thus far. Plan: 1. Proceed with cycle 2 durvalumab at normal dosing. 2. Labs from today were reviewed in detail and discussed with Mr. Fry and a copy was given to him. WBC 6.3, Hemoglobin 15.2, platelets 196,000, ANC is 3600. Potassium 3.7 random glucose 146, creatinine 0.7 LFTs are normal TSH is 0.74. 3. We will plan to see Mr. Fry back in 2 weeks with CBC CMP and follow-up TSH. He will be due for cycle 3 durvalumab at that time. 4. Mr. Fry was instructed to contact us in the interim should questions or problems arise. Signed By: Santino Christensen-, AOP Gino Girssom MD <<Signature on File>>
== END 2020-02-07 23:59 | disposition home or self-care (01) ==
LOC: ONCMED 05:42
PROVIDERS: PCP Emergency Medicine Emergency Medical Services; Visit Provider Nurse Practitioner
DX: Z51.12 Encounter for antineoplastic immunotherapy (principal); C34.01 Malignant neoplasm of right main bronchus; C34.12 Malignant neoplasm of upper lobe, left bronchus or lung; J44.9 Chronic obstructive pulmonary disease, unspecified; I10 Essential (primary) hypertension; E78.5 Hyperlipidemia, unspecified; I25.10 Atherosclerotic heart disease of native coronary artery without angina pectoris; I25.2 Old myocardial infarction; M19.90 Unspecified osteoarthritis, unspecified site; I71.4 Abdominal aortic aneurysm, without rupture; F43.10 Post-traumatic stress disorder, unspecified; F41.9 Anxiety disorder, unspecified; F32.9 Major depressive disorder, single episode, unspecified; Z86.19 Personal history of other infectious and parasitic diseases; Z79.899 Other long term (current) drug therapy
CPT/HCPCS: 80053; 84443; 85025; 96413; 99214; J7050; J9173

== ENCOUNTER → 2020-02-05 10:57 | Outpatient (BNVA) | payer OTHER, SELFPAY | PROVIDERS: PCP Emergency Medicine Emergency Medical Services; Visit Provider Orthopaedic Surgery | DX: M17.0 Bilateral primary osteoarthritis of knee (principal); M25.551 Pain in right hip; M25.552 Pain in left hip | CPT/HCPCS: 73522; 73560; 73565 ==

== ENCOUNTER 2020-02-27 05:32 | Outpatient (RCR) | payer OTHER, SELFPAY ==
[2020-02-13 10:12] LABS: Basophils # 0.1 10^3/uL (0.0-0.1); Basophils % 0.8 %; Eosinophils # 0.5 10^3/uL (0.0-0.8); Eosinophils % 7.6 %; Hematocrit 45.9 % (42.0-52.0); Hemoglobin 14.7 g/dL (11.7-16.6); Lymphocytes # 1.2 10^3/uL (0.8-4.8); Lymphocytes % 19.5 %; Mean Corpuscular Hemoglobin 32.3 pg (28.0-34.0); Mean Corpuscular Volume 100.9 fL (80-94); Mean Platelet Volume 9.5 fL (7.4-10.4); Monocytes # 0.5 10^3/uL (0.2-0.9); Monocytes % 8.9 %; Neutrophils # 3.79 10^3/uL (1.8-7.7); Neutrophils % 62.9 %; Nucleated Red Blood Cells % 0 %; Platelet Count 184 10^3/cmm (130-400); Red Blood Count 4.55 10^6/uL (4.1-5.3); Red Cell Distribution Width 12.2 % (12.1-15.1)
[2020-02-13 10:40] LABS: Alanine Aminotransferase 9 U/L (0-41); Alkaline Phosphatase 73 IU/L (40-130); Anion Gap 14.3 (5-19); Aspartate Amino Transferase 20 U/L (0-40); Blood Urea Nitrogen 10 mg/dL (8-23); Calcium 9.2 mg/dL (8.5-10.5); Carbon Dioxide 28 mmol/L (22-29); Chloride 103 mmol/L (98-107); Globulin 3.4 g/dL (1.3-4.6); Glomerular Filtration Rate 96.7 mL/min (90-130); Glucose 94 mg/dL (65-115); Osmolality Calculated 291 mOsm/kg (285-295); Potassium 4.3 mmol/L (3.5-5.1); Sodium 141 mmol/L (136-145); Total Bilirubin 0.3 mg/dL (0.15-1.2); Total Protein 7.4 g/dL (6.6-8.7)
--- NOTE | 2020-02-18 10:54 | ONC FU_ITS ---
[facility] Patient Note Patient: Satish Fry Unit #: [id number]: 1955 Dictated By: Santino ChristensenDate of Visit: Feb 13, 2020 Onc MED Follow-Up/Prog Note Chief Complaint: Lung cancer. History of Present Illness: Mr Fry is a 64 year-old man with non-small cell lung cancer. On 09/04/2012 he underwent left upper lobectomy with mediastinal lymphadenectomy for grade 3/4 adenocarcinoma, stage IB (T2a, N0, M0). The primary tumor measured 3.1 x 3.0 x 2.6 cm. There was no involvement in a total of [address] Grissom had seen him for medical oncology consultation on 09/28/2012. He received no further treatment, as there appeared to be no indication for postoperative chemotherapy or radiation. On 07/20/2019 he had presented to the emergency room with chest pain and shortness of breath. His CT pulmonary angiogram showed no evidence of pulmonary embolism. However, he was noted to have a 3.3 x 3.8 cm right hilar mass encasing the central right bronchopulmonary structures. There was invasion into the superior right pulmonary vein. There was additional subcarinal lymph node measuring 1.2 cm. Groundglass attenuation along the right minor fissure appeared compatible with either pneumonitis or lymphangitic spread of tumor. Staging PET/CT on 08/18/2019 showed perihilar mass in the right upper lobe measuring 2.8 cm in diameter with SUV 13.5, consistent with malignancy. A secondary right hilar lymph node measuring 1.4 x 2.5 cm with SUV 9.5, consistent with metastatic disease. The subcarinal lymph node did not demonstrate significant FDG activity and other mediastinal lymph nodes appeared radiographically benign and FDG negative. On 08/22/2019 he underwent bronchoscopy/EBUS with transbronchial needle aspiration biopsy of station 7 and station 10R lymph nodes. There were no endobronchial lesions identified. Pathology on the station 7 lymph node showed benign reactive lymph node with no evidence of dysplastic or neoplastic process. The 10R lymph node showed metastatic non-small cell carcinoma favoring squamous cell carcinoma. On 10/09/2019 he began radiation concurrently with weekly carboplatin/paclitaxel chemotherapy. His initial treatment was complicated by significant hyperglycemia and anxiety associated with the steroid premedication. His week 2 treatment was held due to neutropenia. He continued chemotherapy on 10/22/2019 with his treatment changed to carboplatin/Abraxane. He tolerated the chemotherapy much better with the Abraxane substituted for the paclitaxel. He was able to continue with his 3ird weekly chemotherapy dosage on 10/29/2019 and with week 4 on 11/05/2019. His further chemotherapy was put on hold due to neutropenia. He completed his radiation on 11/20/2019, total dose 6000 [address] His restaging chest CT on 12/24/2019 showed significant decrease in the right hilar mass, noted to be hardly discernible on the current study. Subcarinal lymphadenopathy appeared unchanged. It was felt that he had significant response to the chemotherapy and he was started on maintenance durvalumab on 01/16/2020. He has tolerated it well thus far. Mr. Fry is here today for follow-up. He is due for cycle 3 durvalumab. He states overall he continues to feel really good. He has had some epistaxis but admits to using Flonase once or twice daily every day. He has tried intermittent saline spray and states this does not seem to make a difference. He states his only blood-tinged and only ever so often . He denies that this is occurring daily. He denies any other concerns. He denies diarrhea or constipation. He has had no increase in shortness of breath orthopnea. He denies any cough. He denies any neuropathy symptoms at this time. His ECOG is 1. Past Medical History: Abdominal aortic aneurysm Anxiety Chronic obstructive pulmonary disease Coronary artery disease Degenerative arthritis Depression Dyslipidemia History of treated hepatitis C Hypertension Post traumatic stress disorder Past Surgical History: Repair of abdominal aortic aneurysm Umbilical hernia repair Left upper lobectomy in 2013 Endograft repair of abdominal aortic aneurysm in 2010 Allergies: PENICILLIN and Statins. Medications: Benadryl Allergy 1 Tablet (of 25 mg) Tablet Oral daily PRN Cetirizine HCl 1 Tablet (of 10 mg) Oral daily Diclofenac 1 Capsule Oral daily PRN Fish Oil 1 Capsule Oral daily Gabapentin 1 (300 mg) Capsule Oral t.i.d. oxyCODONE HCl 1 Tablet (of 10 mg) Oral t.i.d. PRN Pantoprazole Sodium 1 Tablet (of 40 mg) Tablet, enteric coated Oral daily Tamsulosin HCl 1 Capsule (of 0.4 mg) Oral daily Vitamin D 2 Capsule Oral daily Family History: Mr. Fry's mother at age 83: Brain aneurysm. Mr. Nicoles father at age 64: prostate cancer. His paternal grandfather is : pancreatic cancer. Mr. Fry has 1 brother who is : liver cancer. He has 1 paternal aunt who is : lung cancer. He has 1 maternal uncle who is : lymphoma. Father of prostate cancer at age 64. Mother with a cerebral aneurysm at age 83. A brother with liver cancer at age 56. His paternal grandfather had pancreatic cancer, a maternal uncle had lymphoma, and a paternal aunt had lung cancer. Social History: Mr. Fry is and he is an on disability. He is a daily smoker who has smoked 0.5 packs/day for 51 years. He drinks occasionally. He consumes 2 drinks/day 7 days/week. He has indicated exposure to the following products: cigarettes. Mr. Fry reports the following support systems: lives with spouse, significant other, family, or friends, lives in own house, supportive family/friends willing to assist with needs, and adequate transportation available for expected visits. His diet consists of regular meals. He indicates his activity level as: regular exercise. 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 He has a history of smoking 2 packs of cigarettes daily for 50 years. Review Of Symptoms: Constitutional Denies fevers, chills, night sweats, excessive fatigue or weight loss. Allergic/Immunologic No reactions. Eyes Denies significant visual changes. No diplopia. No amaurosis. ENMT Denies changes in hearing, sore throat, mouth sores, difficulty or changes in swallowing ability. He has had some light nose bleeds but is using Flonase spray at least once every day and is taking Sudafed-generic daily. Hematologic/Lymphatic Denies easy bruising or bleeding. The patient denies any tender or palpable lymph nodes. Respiratory Denies worsening dyspnea on exertion, chest pain, cough or hemoptysis. Denies orthopnea. Cardiovascular Denies anginal chest pain, palpitations or orthopnea. Gastrointestinal Denies nausea, vomiting, diarrhea, GI bleeding, or constipation. Denies change in bowel habits and/or stool color, no heartburn or early satiety. Genitourinary (M) Denies hematuria, dysuria, increased frequency, urgency, hesitancy or incontinence. Musculoskeletal Denies joint pain, swelling or redness. No decreased range of motion. Integumentary Denies chronic rashes, inflammation, ulcerations or skin changes. Neurologic Denies headache, blurred vision, and no areas of focal weakness or numbness. Normal gait. No sensory problems. Psychiatric Denies insomnia, depression, pawel or mood swings. Vital Signs: Performed on Feb 13, 2020 11:03 Height - 68.50 in Weight - 203.6 lbs (HIGH) BSA - 2.07 sq.m BMI - 30.51 (HIGH) Temperature - 98.3 F (LOW) Pulse - 117 /min (HIGH) Respiration - 21 /min BP - 152/72 mm(hg) (HIGH) O2 Sat - 97 % Pain - 4,1 - No physically strenuous activity, but ambulatory and able to carry out light or sedentary work (e.g. office work, light house work). (ECOG) Physical Examination: Constitutional Alert, oriented, no acute distress. Skin pink, warm and dry. Head Normocephalic; atraumatic. Eyes Conjunctivae and sclerae are clear and without icterus. Pupils are reactive and equal. Neck Supple without masses or thyromegaly. No jugular venous distension. Hematologic/Lymphatic No petechiae or purpura. No tender or palpable lymph nodes in the cervical or supraclavicular areas. Respiratory Lungs are clear to auscultation without rhonchi or wheezing. Cardiovascular Regular rate and rhythm of heart without murmurs,clicks, gallops or rubs. Abdomen Non-tender, non-distended, no masses or ascites. Good bowel sounds noted in all quads. No guarding or rebound tenderness. No pulsatile masses. Back/Spine Non-tender to palpation. Extremities No visible deformities, no cyanosis, clubbing or edema. Musculoskeletal No tenderness or swelling, normal range of motion without obvious weakness. Integumentary No rashes or lesions. Neurologic No sensory or motor deficits, normal cerebellar function, normal gait. Psychiatric Alert and oriented times three. Coherent speech. Verbalizes understanding of our discussions today. Laboratory:Test performed on Feb 13, 2020 09:44 Sodium 141 mmol/L TSH 0.50 uIU/mL Potassium 4.3 mmol/L Chloride 103 mmol/L CO2 28 mmol/L Anion Gap 14.3 BUN 10 mg/dL Creatinine 0.8 mg/dL Cr Clearance (Est) 118.8800 mL/min eGFR 96.7 mL/min Glucose 94 mg/dL Osmolality - Calculated 291 mOsm/kg Calcium 9.2 mg/dL Protein, Total 7.4 g/dL Albumin 4.0 g/dL Globulin 3.4 g/dL Bilirubin, Total 0.3 mg/dL ALT (SGPT) 9 U/L AST (SGOT) 20 U/L Alkaline Phosphatase 73 IU/L WBC 6.0 10 3/uL RBC 4.55 10 6/uL HGB 14.7 g/dL HCT 45.9 % MCV 100.9 fL MCH 32.3 pg MCHC 32.0 g/dL RDW 12.2 % Platelet Count 184 10 3/cmm MPV 9.5 fL Neutrophils 3.79 10 3/uL Lymphocytes 1.2 10 3/uL Monocytes 0.5 10 3/uL Eosinophils 0.5 10 3/uL Basophils 0.1 10 3/uL Neutrophil % 62.9 % Lymphocyte % 19.5 % Monocyte % 8.9 % Eosinophil % 7.6 % Basophils % 0.8 % NRBC % 0 % Impression: 1. Patient with grade 3/4 adenocarcinoma involving the upper lobe of the left lung, stage IB (T2a, N0, M0), for which he underwent thoracotomy with left upper lobectomy and mediastinal lymphadenectomy on 09/04/2012. 2. He now has biopsy-proven non-small cell carcinoma involving her right hilar mass. Pathology favored squamous cell carcinoma. Given the interval from his surgery, the location of the mass, and the histology, that appears to be most likely a second primary malignancy. By PET/CT there appears to be additional right hilar adenopathy so that by clinical evaluation his disease appears to be stage IIB (T2a, N1, M0). His other medical illnesses include: 3. COPD. 4. Hypertension. 5. Dyslipidemia. 6. Coronary artery disease with previous myocardial infarction. 7. Degenerative arthritis. 8. History of treated hepatitis C. 9. History of abdominal aortic aneurysm for which he underwent endograft repair in 2010. 10. Posttraumatic stress disorder with anxiety/depression. He began radiation concurrently with weekly carboplatin/paclitaxel on 10/09/2019. His initial chemotherapy treatment was complicated by hyperglycemia and anxiety associated with the steroid premedication. His week 2 treatment was deferred due to neutropenia. He then continued with his treatment on 10/22/2019 with Abraxane substituted for the paclitaxel, which he tolerated much better. He was then able to continue with chemotherapy weekly. As of 11/12/2019 he received his 5th weekly chemotherapy treatment. His further chemotherapy was held due to neutropenia. He completed radiation on 11/20/2019, total dose 6000 cGy. Overall, he tolerated the treatment very well. He appears to have had a very good response by follow-up chest CT on 12/24/2019. Mr. Fry began maintenance immunotherapy with durvalumab on 01/16/2020. He has tolerated it well thus far. Plan: PROBLEMS ADDRESSED TODAY: A. Non-small cell carcinoma involving right hilar mass history of grade 3/4 adenocarcinoma involving the upper lobe of the left lung. 1. Proceed with cycle 3 durvalumab at normal dosing. 2. Labs from today were reviewed in detail and discussed with Mr. Fry and a copy was given to him. WBC 6.0, Hemoglobin 14.7, platelets 184,000, ANC is 3800. Potassium 4.3 random glucose 94, creatinine 0.8 LFTs are normal TSH is 0.50. 3. We will plan to see Mr. Fry back in 2 weeks with CBC CMP and follow-up TSH. He will be due for cycle 4 durvalumab at that time. 4. Mr. Fry was instructed to contact us in the interim should questions or problems arise. B DISCOLORED NASAL DRAINAGE-BLOODY AT TIMES. 1. decrase use of Flonase if possible. 2. Saline spray. 3. Room humidifier. 4. He may also use Bactroban or Vaseline if he is not wearing any oxygen. He would need to apply this inside the nares. 5. Monitor after treatment today to make sure it is not increasing in frequency or volume. Signed By: Santino Christensen-AMMY, [facility] Gino Grissom MD <<Signature on File>>
[2020-02-27] MEDS: alteplase 1 mg/mL SDV 2 mL 2 MG INTRACATH (08:30)
[2020-02-27 08:52] LABS: Basophils % 0.8 %; Eosinophils # 0.6 10^3/uL (0.0-0.8); Eosinophils % 11.7 %; Hematocrit 45.7 % (42.0-52.0); Hemoglobin 14.7 g/dL (11.7-16.6); Lymphocytes # 1.2 10^3/uL (0.8-4.8); Lymphocytes % 24.1 %; Mean Corpuscular HGB Conc 32.2 g/dL (30.0-36.0); Mean Corpuscular Hemoglobin 32.2 pg (28.0-34.0); Mean Platelet Volume 9.4 fL (7.4-10.4); Monocytes # 0.6 10^3/uL (0.2-0.9); Monocytes % 10.7 %; Neutrophils # 2.71 10^3/uL (1.8-7.7); Neutrophils % 52.5 %; Nucleated Red Blood Cells % 0 %; Platelet Count 179 10^3/cmm (130-400); Red Blood Count 4.57 10^6/uL (4.1-5.3); Red Cell Distribution Width 12.5 % (12.1-15.1); White Blood Count 5.2 10^3/uL (4.0-10.0)
[2020-02-27 09:54] LABS: Alanine Aminotransferase 10 U/L (0-41); Albumin Level 4.1 g/dL (3.5-5.2); Alkaline Phosphatase 68 IU/L (40-130); Anion Gap 13.1 (5-19); Aspartate Amino Transferase 16 U/L (0-40); Blood Urea Nitrogen 9 mg/dL (8-23); Carbon Dioxide 27 mmol/L (22-29); Chloride 100 mmol/L (98-107); Globulin 3.3 g/dL (1.3-4.6); Glomerular Filtration Rate 112.8 mL/min (90-130); Glucose 110 mg/dL (65-115); Osmolality Calculated 281 mOsm/kg (285-295); Potassium 4.1 mmol/L (3.5-5.1); Sodium 136 mmol/L (136-145); Thyroid Stimulating Hormone 0.73 uIU/mL (0.27-4.20); Total Bilirubin 0.2 mg/dL (0.15-1.2); Total Protein 7.4 g/dL (6.6-8.7)
--- NOTE | 2020-02-27 10:25 | ONC FU_ITS ---
[facility] Patient Note Patient: Satish Fry Unit #: [id number]: [id number] Dictated By: Santino ChristensenDate of Visit: Feb 27, 2020 Onc MED Follow-Up/Prog Note Chief Complaint: Lung cancer. History of Present Illness: Mr Fry is a 64 year-old man with non-small cell lung cancer. On 09/04/2012 he underwent left upper lobectomy with mediastinal lymphadenectomy for grade 3/4 adenocarcinoma, stage IB (T2a, N0, M0). The primary tumor measured 3.1 x 3.0 x 2.6 cm. There was no involvement in a total of [address] Grissom had seen him for medical oncology consultation on 09/28/2012. He received no further treatment, as there appeared to be no indication for postoperative chemotherapy or radiation. On 07/20/2019 he had presented to the emergency room with chest pain and shortness of breath. His CT pulmonary angiogram showed no evidence of pulmonary embolism. However, he was noted to have a 3.3 x 3.8 cm right hilar mass encasing the central right bronchopulmonary structures. There was invasion into the superior right pulmonary vein. There was additional subcarinal lymph node measuring 1.2 cm. Groundglass attenuation along the right minor fissure appeared compatible with either pneumonitis or lymphangitic spread of tumor. Staging PET/CT on 08/18/2019 showed perihilar mass in the right upper lobe measuring 2.8 cm in diameter with SUV 13.5, consistent with malignancy. A secondary right hilar lymph node measuring 1.4 x 2.5 cm with SUV 9.5, consistent with metastatic disease. The subcarinal lymph node did not demonstrate significant FDG activity and other mediastinal lymph nodes appeared radiographically benign and FDG negative. On 08/22/2019 he underwent bronchoscopy/EBUS with transbronchial needle aspiration biopsy of station 7 and station 10R lymph nodes. There were no endobronchial lesions identified. Pathology on the station 7 lymph node showed benign reactive lymph node with no evidence of dysplastic or neoplastic process. The 10R lymph node showed metastatic non-small cell carcinoma favoring squamous cell carcinoma. On 10/09/2019 he began radiation concurrently with weekly carboplatin/paclitaxel chemotherapy. His initial treatment was complicated by significant hyperglycemia and anxiety associated with the steroid premedication. His week 2 treatment was held due to neutropenia. He continued chemotherapy on 10/22/2019 with his treatment changed to carboplatin/Abraxane. He tolerated the chemotherapy much better with the Abraxane substituted for the paclitaxel. He was able to continue with his 3ird weekly chemotherapy dosage on 10/29/2019 and with week 4 on 11/05/2019. His further chemotherapy was put on hold due to neutropenia. He completed his radiation on 11/20/2019, total dose 6000 [address]Gy. His restaging chest CT on 12/24/2019 showed significant decrease in the right hilar mass, noted to be hardly discernible on the current study. Subcarinal lymphadenopathy appeared unchanged. It was felt that he had significant response to the chemotherapy and he was started on maintenance durvalumab on 01/16/2020. He has tolerated it well thus far. Mr. Fry is here today for follow-up. He is due for cycle 4 durvalumab. It is overall he feels about the same. He states he feels no worse. He still has cough and shortness of breath but states it is stable. He denies any hemoptysis. He states he just has no energy and just has to force himself to get up out of a chair. He states that he has not been able to be as active outside as he likes to be due to the cold weather. He denies any nausea or vomiting. He denies any new pain. He states he has not had any chest pain or palpitations. He denies diarrhea or constipation. He denies any abdominal pain. He states he has multiple joint aches and arthritis that seems to limit his ability to get around as well. His ECOG is 2. Past Medical History: Abdominal aortic aneurysm Anxiety Chronic obstructive pulmonary disease Coronary artery disease Degenerative arthritis Depression Dyslipidemia History of treated hepatitis C Hypertension Post traumatic stress disorder Past Surgical History: Repair of abdominal aortic aneurysm Umbilical hernia repair Left upper lobectomy in 2013 Endograft repair of abdominal aortic aneurysm in 2010 Allergies: PENICILLIN and Statins. Medications: Benadryl Allergy 1 Tablet (of 25 mg) Tablet Oral daily PRN Cetirizine HCl 1 Tablet (of 10 mg) Oral daily Diclofenac 1 Capsule Oral daily PRN Fish Oil 1 Capsule Oral daily Gabapentin 1 (300 mg) Capsule Oral t.i.d. oxyCODONE HCl 1 Tablet (of 10 mg) Oral t.i.d. PRN Pantoprazole Sodium 1 Tablet (of 40 mg) Tablet, enteric coated Oral daily Tamsulosin HCl 1 Capsule (of 0.4 mg) Oral daily Vitamin D 2 Capsule Oral daily Family History: Mr. Fry's mother at age 83: Brain aneurysm. Mr. Nicoles father at age 64: prostate cancer. His paternal grandfather is : pancreatic cancer. Mr. Fry has 1 brother who is : liver cancer. He has 1 paternal aunt who is : lung cancer. He has 1 maternal uncle who is : lymphoma. Father of prostate cancer at age 64. Mother with a cerebral aneurysm at age 83. A brother with liver cancer at age 56. His paternal grandfather had pancreatic cancer, a maternal uncle had lymphoma, and a paternal aunt had lung cancer. Social History: Mr. Fry is and he is an on disability. He is a daily smoker who has smoked 0.5 packs/day for 51 years. He drinks occasionally. He consumes 2 drinks/day 7 days/week. He has indicated exposure to the following products: cigarettes. Mr. Fry reports the following support systems: lives with spouse, significant other, family, or friends, lives in own house, supportive family/friends willing to assist with needs, and adequate transportation available for expected visits. His diet consists of regular meals. He indicates his activity level as: regular exercise. Review Of Symptoms: Constitutional Denies fevers, chills, night sweats, excessive fatigue or weight loss. No energy, hard to get up and go. Allergic/Immunologic No reactions. Eyes Denies significant visual changes. No diplopia. No amaurosis. ENMT Denies changes in hearing, sore throat, mouth sores, difficulty or changes in swallowing ability. Hematologic/Lymphatic Denies easy bruising or bleeding. The patient denies any tender or palpable lymph nodes. Respiratory Denies worsening dyspnea on exertion, chest pain, cough or hemoptysis. Denies orthopnea. Still has SOB but no worse than his normal. Cardiovascular Denies anginal chest pain, palpitations or orthopnea. Gastrointestinal Denies nausea, vomiting, diarrhea, GI bleeding, or constipation. Denies change in bowel habits and/or stool color, no heartburn or early satiety. Genitourinary (M) Denies hematuria, dysuria, increased frequency, urgency, hesitancy or incontinence. Musculoskeletal Denies joint pain, swelling or redness. No decreased range of motion. Integumentary Denies chronic rashes, inflammation, ulcerations or skin changes. Neurologic Denies headache, blurred vision, and no areas of focal weakness or numbness. Normal gait. No sensory problems. Psychiatric Denies insomnia, depression, pawel or mood swings. Vital Signs: Performed on Feb 27, 2020 09:33 Height - 68.50 in Weight - 206.8 lbs (HIGH) BSA - 2.08 sq.m BMI - 30.99 (HIGH) Temperature - 98.4 F Pulse - 99 /min Respiration - 18 /min BP - 163/88 mm(hg) (HIGH) O2 Sat - 90 % (LOW) Pain - 5,2 - Ambulatory/capable of all self-care, unable to perform any work activities. Up and about more than 50% of waking hours. (ECOG) Physical Examination: Constitutional Alert, oriented, no acute distress. Skin pink, warm and dry. Head Normocephalic; atraumatic. Eyes Conjunctivae and sclerae are clear and without icterus. Pupils are reactive and equal. Neck Supple without masses or thyromegaly. No jugular venous distension. Hematologic/Lymphatic No petechiae or purpura. No tender or palpable lymph nodes in the cervical or supraclavicular areas. Respiratory Lungs are noted to have wheezing bilaterally-improve with cough. No congestion appreciated. Cardiovascular Regular rate and rhythm of heart without murmurs,clicks, gallops or rubs. Back/Spine Non-tender to palpation. Extremities No visible deformities, no cyanosis, clubbing or edema. Musculoskeletal No tenderness or swelling, normal range of motion without obvious weakness. Integumentary No rashes or lesions. Neurologic No sensory or motor deficits, normal cerebellar function, normal gait. Psychiatric Alert and oriented times three. Coherent speech. Verbalizes understanding of our discussions today. Laboratory:Test performed on Feb 27, 2020 08:35 Sodium 136 mmol/L TSH 0.73 uIU/mL Potassium 4.1 mmol/L Chloride 100 mmol/L CO2 27 mmol/L Anion Gap 13.1 BUN 9 mg/dL Creatinine 0.7 mg/dL Cr Clearance (Est) 135.8600 mL/min eGFR 112.8 mL/min Glucose 110 mg/dL Osmolality - Calculated 281 mOsm/kg Calcium 9.0 mg/dL Protein, Total 7.4 g/dL Albumin 4.1 g/dL Globulin 3.3 g/dL Bilirubin, Total 0.2 mg/dL ALT (SGPT) 10 U/L AST (SGOT) 16 U/L Alkaline Phosphatase 68 IU/L WBC 5.2 10 3/uL RBC 4.57 10 6/uL HGB 14.7 g/dL HCT 45.7 % MCV 100.0 fL MCH 32.2 pg MCHC 32.2 g/dL RDW 12.5 % Platelet Count 179 10 3/cmm MPV 9.4 fL Neutrophils 2.71 10 3/uL Lymphocytes 1.2 10 3/uL Monocytes 0.6 10 3/uL Eosinophils 0.6 10 3/uL Basophils 0.0 10 3/uL Neutrophil % 52.5 % Lymphocyte % 24.1 % Monocyte % 10.7 % Eosinophil % 11.7 % Basophils % 0.8 % NRBC % 0 % Test performed on Nov 26, 2019 00:00 Manual Diff NO SPECIMEN OF [id number] Test performed on Nov 19, 2019 10:20 CBC Slide Review Slide Review Perform REVIEW AGREES WITH AUTOMATED Impression: 1. Patient with grade 3/4 adenocarcinoma involving the upper lobe of the left lung, stage IB (T2a, N0, M0), for which he underwent thoracotomy with left upper lobectomy and mediastinal lymphadenectomy on 09/04/2012. 2. He now has biopsy-proven non-small cell carcinoma involving her right hilar mass. Pathology favored squamous cell carcinoma. Given the interval from his surgery, the location of the mass, and the histology, that appears to be most likely a second primary malignancy. By PET/CT there appears to be additional right hilar adenopathy so that by clinical evaluation his disease appears to be stage IIB (T2a, N1, M0). His other medical illnesses include: 3. COPD. 4. Hypertension. 5. Dyslipidemia. 6. Coronary artery disease with previous myocardial infarction. 7. Degenerative arthritis. 8. History of treated hepatitis C. 9. History of abdominal aortic aneurysm for which he underwent endograft repair in 2010. 10. Posttraumatic stress disorder with anxiety/depression. He began radiation concurrently with weekly carboplatin/paclitaxel on 10/09/2019. His initial chemotherapy treatment was complicated by hyperglycemia and anxiety associated with the steroid premedication. His week 2 treatment was deferred due to neutropenia. He then continued with his treatment on 10/22/2019 with Abraxane substituted for the paclitaxel, which he tolerated much better. He was then able to continue with chemotherapy weekly. As of 11/12/2019 he received his 5th weekly chemotherapy treatment. His further chemotherapy was held due to neutropenia. He completed radiation on 11/20/2019, total dose 6000 cGy. Overall, he tolerated the treatment very well. He appears to have had a very good response by follow-up chest CT on 12/24/2019. Mr. Fry began maintenance immunotherapy with durvalumab on 01/16/2020. He has tolerated it well thus far. Plan: PROBLEMS ADDRESSED TODAY: A. Non-small cell carcinoma involving right hilar mass history of grade 3/4 adenocarcinoma involving the upper lobe of the left lung. 1. Proceed with cycle 4 durvalumab at normal dosing. 2. Labs from today were reviewed in detail and discussed with Mr. Fry and a copy was given to him. WBC 5.2, hemoglobin 14.7, platelets 179,000 ANC is 2710. Potassium 4.1 random glucose 110 creatinine 0.7 LFTs are normal TSH is 0.73. 3. We will plan to see Mr. Fry back in 2 weeks with CBC CMP and follow-up TSH. He will be due for cycle 5 durvalumab at that time. I am tentatively planning on restaging imaging after 6 cycles. 4. Mr. Fry was instructed to contact us in the interim should questions or problems arise. B Abnormal lung sounds/wheezing 1. We will have her try prednisone 10 mg daily to see if this will help with his wheezing. Also it should help with his energy somewhat. I do believe this will help with his joint pain as well and help him to increase his mobility. Prescription will be sent to the [place] and hopefully he can pick it up there if not we will send to his local pharmacy. Signed By: Santino Christensen-, [facility] Gino Grissom MD <<Signature on File>>
== END 2020-03-09 23:59 | disposition home or self-care (01) ==
LOC: ONCMED 05:32
PROVIDERS: PCP Emergency Medicine Emergency Medical Services; Visit Provider Nurse Practitioner
DX: Z51.12 Encounter for antineoplastic immunotherapy (principal); C34.01 Malignant neoplasm of right main bronchus; C34.12 Malignant neoplasm of upper lobe, left bronchus or lung; J44.9 Chronic obstructive pulmonary disease, unspecified; I10 Essential (primary) hypertension; E78.5 Hyperlipidemia, unspecified; I25.10 Atherosclerotic heart disease of native coronary artery without angina pectoris; I25.2 Old myocardial infarction; M19.90 Unspecified osteoarthritis, unspecified site; F43.10 Post-traumatic stress disorder, unspecified; F41.9 Anxiety disorder, unspecified; F32.9 Major depressive disorder, single episode, unspecified; I71.4 Abdominal aortic aneurysm, without rupture; Z86.19 Personal history of other infectious and parasitic diseases; Z79.899 Other long term (current) drug therapy
CPT/HCPCS: 36415; 36593; 80053; 84443; 85025; 96375; 96413; 99215; J2997; J7050; J9173

== ENCOUNTER 2020-04-01 05:27 | Outpatient (RCR) | payer OTHER, SELFPAY ==
[2020-03-12 10:02] LABS: Basophils # 0.1 10^3/uL (0.0-0.1); Basophils % 0.8 %; Eosinophils # 0.2 10^3/uL (0.0-0.8); Eosinophils % 2.9 %; Hemoglobin 14.7 g/dL (11.7-16.6); Lymphocytes # 0.8 10^3/uL (0.8-4.8); Lymphocytes % 10.4 %; Mean Corpuscular Hemoglobin 31.9 pg (28.0-34.0); Mean Corpuscular Volume 99.8 fL (80-94); Monocytes # 0.6 10^3/uL (0.2-0.9); Monocytes % 7.2 %; Neutrophils # 5.99 10^3/uL (1.8-7.7); Neutrophils % 78.4 %; Nucleated Red Blood Cells % 0 %; Platelet Count 168 10^3/cmm (130-400); Red Blood Count 4.61 10^6/uL (4.1-5.3); White Blood Count 7.6 10^3/uL (4.0-10.0)
[2020-03-12 10:30] LABS: Alanine Aminotransferase 24 U/L (0-41); Albumin Level 4.2 g/dL (3.5-5.2); Alkaline Phosphatase 66 IU/L (40-130); Blood Urea Nitrogen 13 mg/dL (8-23); Calcium 8.9 mg/dL (8.5-10.5); Carbon Dioxide 25 mmol/L (22-29); Chloride 100 mmol/L (98-107); Globulin 3.1 g/dL (1.3-4.6); Glomerular Filtration Rate 96.7 mL/min (90-130); Glucose 182 mg/dL (65-115); Osmolality Calculated 291 mOsm/kg (285-295); Sodium 138 mmol/L (136-145); Thyroid Stimulating Hormone 0.35 uIU/mL (0.27-4.20); Total Bilirubin 0.4 mg/dL (0.15-1.2); Total Protein 7.3 g/dL (6.6-8.7)
[2020-03-12 10:36] LABS: Anion Gap 17.1 (5-19); Aspartate Amino Transferase 39 U/L (0-40); Potassium 4.1 mmol/L (3.5-5.1)
--- NOTE | 2020-03-12 11:37 | CT_ITS ---
WS: [id number] CTA OF THE CHEST WITH PULMONARY EMBOLISM PROTOCOL TECHNIQUE: High-resolution contrast enhanced CTA of the chest with coronal and sagittal reformatted i mages with pulmonary embolism protocol. MIP images are also reviewed. CLINICAL INFORMATION: LUNG CANCER, HYPOXIA COMPARISON: CT chest December 24, 2019 DLP: 1580.[address] scans at [facility] use at least one of these dose optimization techniques: automat ed exposure control; mA and/or kV adjustment per patient size (includes targeted exams where dose is matched to clinical indication); or iterative reconstruction. FINDINGS: Proximal main pulmonary arteries are normal. Normal segmental and subsegmental pulmonary arteries. No evidence of pulmonary embolus. Stable bronchovascular thickening along the right hilum. No evidence of progressive disease. Calcifie d right hilar nodes. Stable subcarinal lymphadenopathy measuring 1.6 cm. No axillary lymphadenopathy. Adrenal glands are normal. Small bilateral renal cysts. Normal GE junction. Moderate chronic emphysematous changes. Slight atelectasis in the lung bases. No acute pulmonary infi ltrates. Stable 6 mm noncalcified nodule at the right diaphragm junction CT/CT angio chest PE protcl [id number] IMPRESSION: 1. No evidence of pulmonary embolus. 2. Moderate chronic emphysematous changes. No acute pulmonary infiltrates. Sli ght atelectasis in the lung bases. 3. Stable bronchovascular thickening along the right hilum. Stable subcarinal lymphadenopathy. No evidence of disease progression.
[2020-03-12] MEDS: iohexol 350 mg/mL 100 mL Btl IV (11:58)
--- NOTE | 2020-03-12 19:16 | ONC FU_ITS ---
Dr. Grissom Patient Follow-Up Note Patient: Satish Fry Unit #: [id number]: [id number] Dicatated By: Gino Grissom M.D.Date of Visit:Mar 12, 2020 Onc Med Follow-up/Prog Note Chief Complaint: Lung cancer. History of Present Illness: This is a 64 year-old man with non-small cell lung cancer involving the perihilar region of the right lung, stage IIB (T2a, N1, M0). He has a prior history of non-small cell carcinoma of the left lung. On 09/04/2012 he had undergone left upper lobectomy with mediastinal lymphadenectomy for grade 3/4 adenocarcinoma, stage IB (T2a, N0, M0). The primary tumor measured 3.1 x 3.0 x 2.6 cm. There was no involvement in a total of 14 lymph nodes. I had seen him for medical oncology consultation on 09/28/2012. He received no further treatment, as there appeared to be no indication for postoperative chemotherapy or radiation. On 07/20/2019 he had presented to the emergency room with chest pain and shortness of breath. His CT pulmonary angiogram showed no evidence of pulmonary embolism. However, he was noted to have a 3.3 x 3.8 cm right hilar mass encasing the central right bronchopulmonary structures. There was invasion into the superior right pulmonary vein. There was additional subcarinal lymph node measuring 1.2 cm. Groundglass attenuation along the right minor fissure appeared compatible with either pneumonitis or lymphangitic spread of tumor. Staging PET/CT on 08/18/2019 showed perihilar mass in the right upper lobe measuring 2.8 cm in diameter with SUV 13.5, consistent with malignancy. A secondary right hilar lymph node measuring 1.4 x 2.5 cm with SUV 9.5, consistent with metastatic disease. The subcarinal lymph node did not demonstrate significant FDG activity and other mediastinal lymph nodes appeared radiographically benign and FDG negative. On 08/22/2019 he underwent bronchoscopy/EBUS with transbronchial needle aspiration biopsy of station 7 and station 10R lymph nodes. There were no endobronchial lesions identified. Pathology on the station 7 lymph node showed benign reactive lymph node with no evidence of dysplastic or neoplastic process. The 10R lymph node showed metastatic non-small cell carcinoma favoring squamous cell carcinoma. As his disease was deemed inoperable, he was recommended to undergo chemoradiation. He began radiation concurrently with weekly carboplatin/paclitaxel chemotherapy on 10/09/2019. His initial chemotherapy was complicated by neutropenia and by steroid intolerance, and with his further chemotherapy Abraxane was substituted for paclitaxel. He completed radiation on 11/20/2019 to a total dose of 6000 cGy. He received a total of 4 weekly chemotherapy infusions. His restaging chest CT on 12/24/2019 showed significant decrease in the right hilar mass, which at that point was hardly discernible. Subcarinal lymphadenopathy appeared unchanged. With that response, he was eligible to begin maintenance immunotherapy with durvalumab. He began cycle 1 on 01/16/2020. He tolerated it without adverse effects, and he then continued treatment at 2-week intervals. He received cycle 4 on 02/27/2020. His other medical illnesses include hypertension, dyslipidemia, and coronary artery disease with previous myocardial infarction. He has significant underlying COPD. 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 He also has degenerative arthritis and posttraumatic stress disorder with anxiety/depression. He has a history of smoking 2 packs of cigarettes daily for 50 years. He is seen for a scheduled visit. He has not been feeling as good. He indicates that he was started on steroid therapy 2 weeks ago for increased shortness of breath. He felt better initially, but not as good since the prednisone dosage was tapered to 10 mg daily. He continues to complain that he is out of breath with activity. He also has cough productive of yellow sputum. He has limited activity. ECOG score is 0. Appetite is still good. He does not have fever or night sweats. He does not complain of chest pain. He currently has no GI or complaints. He has chronic back and joint pain, which may be a little worse. He does not complain of headache or dizziness. He has no focal neurologic symptoms. Medications: Benadryl Allergy 1 Tablet (of 25 mg) Tablet Oral daily PRN, Cetirizine HCl 1 Tablet (of 10 mg) Oral daily, Diclofenac 1 Capsule Oral daily PRN, Fish Oil 1 Capsule Oral daily, Gabapentin 1 (300 mg) Capsule Oral t.i.d., oxyCODONE HCl 1 Tablet (of 10 mg) Oral t.i.d. PRN, Pantoprazole Sodium 1 Tablet (of 40 mg) Tablet, enteric coated Oral daily, Tamsulosin HCl 1 Capsule (of 0.4 mg) Oral daily, Vitamin D 2 Capsule Oral daily Allergies: PENICILLIN and Statins. Vital Signs: Performed on Mar 12, 2020 10:29 Height - 68.50 in Weight - 204.4 lbs (LOW) BSA - 2.07 sq.m BMI - 30.63 (HIGH) Temperature - 97.7 F (LOW) Pulse - 114 /min (HIGH) Respiration - 19 /min BP - 151/75 mm(hg) (HIGH) O2 Sat - 93 % (LOW) Pain - 4 Physical Examination: Constitutional - He appears somewhat weak generally, Eyes - Sclerae nonicteric. Conjunctivae clear, ENMT - No lesions noted in the oral cavity, Hematologic/Lymphatic - No cervical, clavicular, or axillary adenopathy, Respiratory - Lungs show diminished air movement with some coarse rhonchi bilaterally, Cardiovascular - Heart rhythm is regular. There is no murmur, gallop, or rub noted, Abdomen - Soft. Liver and spleen are not enlarged. There is no abdominal mass or ascites noted and there is no inguinal adenopathy, Extremities - No edema, Neurologic - No focal neurologic deficits noted. Lab/Imaging: Test performed on Mar 12, 2020 09:20 Sodium 138 mmol/L TSH 0.35 uIU/mL Potassium 4.1 mmol/L Chloride 100 mmol/L CO2 25 mmol/L Anion Gap 17.1 BUN 13 mg/dL Creatinine 0.8 mg/dL Cr Clearance (Est) 118.8800 mL/min eGFR 96.7 mL/min Glucose 182 mg/dL Osmolality - Calculated 291 mOsm/kg Calcium 8.9 mg/dL Protein, Total 7.3 g/dL Albumin 4.2 g/dL Globulin 3.1 g/dL Bilirubin, Total 0.4 mg/dL ALT (SGPT) 24 U/L AST (SGOT) 39 U/L Alkaline Phosphatase 66 IU/L WBC 7.6 10 3/uL RBC 4.61 10 6/uL HGB 14.7 g/dL HCT 46.0 % MCV 99.8 fL MCH 31.9 pg MCHC 32.0 g/dL RDW 13.0 % Platelet Count 168 10 3/cmm MPV 10.0 fL Neutrophils 5.99 10 3/uL Lymphocytes 0.8 10 3/uL Monocytes 0.6 10 3/uL Eosinophils 0.2 10 3/uL Basophils 0.1 10 3/uL Neutrophil % 78.4 % Lymphocyte % 10.4 % Monocyte % 7.2 % Eosinophil % 2.9 % Basophils % 0.8 % NRBC % 0 % CT pulmonary angiogram shows no evidence for pulmonary embolism. There were moderate chronic emphysematous changes with no acute pulmonary infiltrates. There was slight atelectasis in the lung bases. There was stable bronchovascular thickening along the right hilum and stable subcarinal lymphadenopathy. There was no evidence for disease progression. Problem List: 1. Non-small cell carcinoma involving her right hilar mass. Pathology favored squamous cell carcinoma. It appeared to be a new primary malignancy. By PET/CT there appeared to be additional right hilar adenopathy so that by clinical evaluation his disease appeared to be stage IIB (T2a, N1, M0). 2. He has a history of grade 3/4 adenocarcinoma involving the upper lobe of the left lung, stage IB (T2a, N0, M0), for which he underwent thoracotomy with left upper lobectomy and mediastinal lymphadenectomy on 09/04/2012. 3. COPD. 4. Hypertension. 5. Dyslipidemia. 6. Coronary artery disease with previous myocardial infarction. 7. Degenerative arthritis. 8. History of treated hepatitis C. 9. History of abdominal aortic aneurysm for which he underwent endograft repair in 2010. 10. Posttraumatic stress disorder with anxiety/depression. Problems Addressed with this Encounter and Plan: 1. Non-small cell carcinoma involving the perihilar region of the right lung. Pathology favored squamous cell carcinoma. By PET/CT there appeared to be additional right hilar adenopathy so that by clinical evaluation his disease appeared to be stage IIB (T2a, N1, M0). His disease was deemed inoperable. As such, he was treated with radiation concurrently with weekly carboplatin/paclitaxel chemotherapy. His chemotherapy was complicated by neutropenia and Abraxane was substituted for the paclitaxel due to steroid intolerance. He completed radiation on 11/20/2019 to a total dose of 6000 cGy. He received a total of 4 weekly chemotherapy infusions. He had a very good response by follow-up chest CT. On 01/16/2020 he began maintenance immunotherapy with durvalumab. He tolerated the initial infusion well, and he then continued treatment at 2-week intervals. He received cycle 4 of nivolumab on 02/27/2020. His cycle 5 is being delayed 1 week due to shortness of breath/hypoxia, which appears to be related to his underlying COPD. 2. He has underlying COPD. For the past 2 weeks he has had increased shortness of breath and productive cough. Symptoms have persisted despite steroid therapy. He does have associated hypoxia. His CT pulmonary angiogram shows no evidence of pulmonary embolism, no evidence for pneumonia/pneumonitis or other acute pathology, and no evidence of progression of the lung cancer. As such, he will be given Solu-Medrol 60 mg IV today. He will then continue prednisone 10 mg twice daily and he will be given empiric antibiotic coverage with Levaquin 500 mg daily for 7 days. He returns in 1 week. Signed By: Gino Grissom M.D. <<Signature on File>>
== END 2020-04-06 23:59 | disposition home or self-care (01) ==
LOC: ONCMED 05:27
PROVIDERS: PCP Emergency Medicine Emergency Medical Services; Visit Provider Internal Medicine Medical Oncology
DX: Z51.12 Encounter for antineoplastic immunotherapy (principal); C34.01 Malignant neoplasm of right main bronchus; C34.12 Malignant neoplasm of upper lobe, left bronchus or lung; J44.9 Chronic obstructive pulmonary disease, unspecified; I10 Essential (primary) hypertension; E78.5 Hyperlipidemia, unspecified; I25.10 Atherosclerotic heart disease of native coronary artery without angina pectoris; I25.2 Old myocardial infarction; M19.90 Unspecified osteoarthritis, unspecified site; Z86.19 Personal history of other infectious and parasitic diseases; F43.10 Post-traumatic stress disorder, unspecified; F41.9 Anxiety disorder, unspecified; F32.9 Major depressive disorder, single episode, unspecified; Z79.899 Other long term (current) drug therapy
CPT/HCPCS: 36415; 36593; 71275; 80053; 84443; 85025; 96365; 96375; 96413; 99214; J2997; J7050; J9173; Q9967

== ENCOUNTER 2020-05-07 05:35 | Outpatient (RCR) | payer OTHER, SELFPAY ==
[2020-05-07] MEDS: alteplase 1 mg/mL SDV 2 mL 2 MG IV (12:45)
[2020-05-07 12:59] LABS: Basophils # 0.1 10^3/uL (0.0-0.1); Basophils % 0.9 %; Eosinophils # 1.3 10^3/uL (0.0-0.8); Eosinophils % 19.2 %; Hematocrit 45.8 % (42.0-52.0); Hemoglobin 15.2 g/dL (11.7-16.6); Lymphocytes # 1.4 10^3/uL (0.8-4.8); Lymphocytes % 20.6 %; Mean Corpuscular HGB Conc 33.2 g/dL (30.0-36.0); Mean Corpuscular Hemoglobin 32.1 pg (28.0-34.0); Mean Corpuscular Volume 96.8 fL (80-94); Mean Platelet Volume 9.5 fL (7.4-10.4); Monocytes # 0.5 10^3/uL (0.2-0.9); Monocytes % 7.8 %; Neutrophils # 3.47 10^3/uL (1.8-7.7); Neutrophils % 51.4 %; Nucleated Red Blood Cells % 0 %; Platelet Count 228 10^3/cmm (130-400); Red Blood Count 4.73 10^6/uL (4.1-5.3); Red Cell Distribution Width 14.3 % (12.1-15.1); White Blood Count 6.8 10^3/uL (4.0-10.0)
[2020-05-07 13:33] LABS: Alanine Aminotransferase 7 U/L (0-41); Albumin Level 4.2 g/dL (3.5-5.2); Alkaline Phosphatase 70 IU/L (40-130); Anion Gap 14.4 (5-19); Aspartate Amino Transferase 14 U/L (0-40); Blood Urea Nitrogen 9 mg/dL (8-23); Calcium 8.9 mg/dL (8.5-10.5); Carbon Dioxide 26 mmol/L (22-29); Chloride 103 mmol/L (98-107); Globulin 3.6 g/dL (1.3-4.6); Glomerular Filtration Rate 112.8 mL/min (90-130); Glucose 171 mg/dL (65-115); Osmolality Calculated 293 mOsm/kg (285-295); Potassium 3.4 mmol/L (3.5-5.1); Sodium 140 mmol/L (136-145); Thyroid Stimulating Hormone 0.47 uIU/mL (0.27-4.20); Total Bilirubin 0.5 mg/dL (0.15-1.2); Total Protein 7.8 g/dL (6.6-8.7)
--- NOTE | 2020-05-11 11:47 | ONC FU_ITS ---
Dr. Grissom Patient Follow-Up Note Patient: Satish Fry Unit #: [id number]: 1955 Dicatated By: Gino Grissom M.D.Date of Visit:May 07, 2020 Onc Med Follow-up/Prog Note Chief Complaint: Lung cancer. History of Present Illness: This is a 64 year-old man with non-small cell lung cancer involving the perihilar region of the right lung, stage IIB (T2a, N1, M0). He has a prior history of non-small cell carcinoma of the left lung. On 09/04/2012 he had undergone left upper lobectomy with mediastinal lymphadenectomy for grade 3/4 adenocarcinoma, stage IB (T2a, N0, M0). The primary tumor measured 3.1 x 3.0 x 2.6 cm. There was no involvement in a total of 14 lymph nodes. I had seen him for medical oncology consultation on 09/28/2012. He received no further treatment, as there appeared to be no indication for postoperative chemotherapy or radiation. On 07/20/2019 he had presented to the emergency room with chest pain and shortness of breath. His CT pulmonary angiogram showed no evidence of pulmonary embolism. However, he was noted to have a 3.3 x 3.8 cm right hilar mass encasing the central right bronchopulmonary structures. There was invasion into the superior right pulmonary vein. There was additional subcarinal lymph node measuring 1.2 cm. Groundglass attenuation along the right minor fissure appeared compatible with either pneumonitis or lymphangitic spread of tumor. Staging PET/CT on 08/18/2019 showed perihilar mass in the right upper lobe measuring 2.8 cm in diameter with SUV 13.5, consistent with malignancy. A secondary right hilar lymph node measuring 1.4 x 2.5 cm with SUV 9.5, consistent with metastatic disease. The subcarinal lymph node did not demonstrate significant FDG activity and other mediastinal lymph nodes appeared radiographically benign and FDG negative. On 08/22/2019 he underwent bronchoscopy/EBUS with transbronchial needle aspiration biopsy of station 7 and station 10R lymph nodes. There were no endobronchial lesions identified. Pathology on the station 7 lymph node showed benign reactive lymph node with no evidence of dysplastic or neoplastic process. The 10R lymph node showed metastatic non-small cell carcinoma favoring squamous cell carcinoma. As his disease was deemed inoperable, he was recommended to undergo chemoradiation. He began radiation concurrently with weekly carboplatin/paclitaxel chemotherapy on 10/09/2019. His initial chemotherapy was complicated by neutropenia and by steroid intolerance, and with his further chemotherapy Abraxane was substituted for paclitaxel. He completed radiation on 11/20/2019 to a total dose of 6000 cGy. He received a total of 4 weekly chemotherapy infusions. His restaging chest CT on 12/24/2019 showed significant decrease in the right hilar mass, which at that point was hardly discernible. Subcarinal lymphadenopathy appeared unchanged. With that response, he then began maintenance immunotherapy with durvalumab. His other medical illnesses include hypertension, dyslipidemia, and coronary artery disease with previous myocardial infarction. He has significant underlying COPD. 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 He also has degenerative arthritis and posttraumatic stress disorder with anxiety/depression. He has a history of smoking 2 packs of cigarettes daily for 50 years. INTERIM HISTORY: He began cycle 1 of durvalumab on 01/16/2020. He tolerated it without adverse effects, and he then continued treatment at 2-week intervals. CT pulmonary angiogram on 03/12/2020 showed no evidence of pulmonary embolus. There was stable bronchovascular thickening along the right hilum and there was stable subcarinal lymphadenopathy measuring 1.6 cm. There was no evidence of disease progression. He continued his maintenance immunotherapy. He received cycle 6 on 04/16/2020. He is seen for a scheduled visit. He has been feeling pretty good generally, though he says his energy has not been very good. He is able to do light work. ECOG score is 1. He has good appetite. He has not had fever. He had a little spell of sweating a couple of weeks ago. He has some sinus drainage and he does have some cough, but not bad. He does complain that he gets winded real quick. He does not complain of chest pain. He has no GI or complaints. He has chronic pain, which is unchanged. He does not complain of headache or dizziness. He has no focal neurologic symptoms. Medications: Benadryl Allergy 1 Tablet (of 25 mg) Tablet Oral daily PRN, Cetirizine HCl 1 Tablet (of 10 mg) Oral daily, Diclofenac 1 Capsule Oral daily PRN, Fish Oil 1 Capsule Oral daily, Gabapentin 1 (300 mg) Capsule Oral t.i.d., oxyCODONE HCl 1 Tablet (of 10 mg) Oral t.i.d. PRN, Pantoprazole Sodium 1 Tablet (of 40 mg) Tablet, enteric coated Oral daily, Tamsulosin HCl 1 Capsule (of 0.4 mg) Oral daily, Vitamin D 2 Capsule Oral daily Allergies: PENICILLIN and Statins. Vital Signs: Performed on May 07, 2020 14:12 Height - 68.50 in Weight - 202.4 lbs (LOW) BSA - 2.07 sq.m BMI - 30.33 (HIGH) Temperature - 99.8 F (HIGH) Pulse - 102 /min (HIGH) Respiration - 18 /min BP - 148/88 mm(hg) (HIGH) O2 Sat - 92 % (LOW) Pain - 4 Fatigue - 8 Physical Examination: Constitutional - He looks pretty good generally, Eyes - Sclerae nonicteric. Conjunctivae clear, ENMT - No lesions noted in the oral cavity, Hematologic/Lymphatic - No cervical, clavicular, or axillary adenopathy, Respiratory - Lungs sound clear with diminished air movement bilaterally, Cardiovascular - Heart rhythm is regular. There is no murmur, gallop, or rub noted, Abdomen - Soft. Liver and spleen are not enlarged. There is no abdominal mass or ascites noted and there is no inguinal adenopathy, Extremities - No edema, Neurologic - No focal neurologic deficits noted. Lab/Imaging: Test performed on May 07, 2020 12:37 Sodium 140 mmol/L TSH 0.47 uIU/mL Potassium 3.4 mmol/L Chloride 103 mmol/L CO2 26 mmol/L Anion Gap 14.4 BUN 9 mg/dL Creatinine 0.7 mg/dL Cr Clearance (Est) 135.8600 mL/min eGFR 112.8 mL/min Glucose 171 mg/dL Osmolality - Calculated 293 mOsm/kg Calcium 8.9 mg/dL Protein, Total 7.8 g/dL Albumin 4.2 g/dL Globulin 3.6 g/dL Bilirubin, Total 0.5 mg/dL ALT (SGPT) 7 U/L AST (SGOT) 14 U/L Alkaline Phosphatase 70 IU/L WBC 6.8 10 3/uL RBC 4.73 10 6/uL HGB 15.2 g/dL HCT 45.8 % MCV 96.8 fL MCH 32.1 pg MCHC 33.2 g/dL RDW 14.3 % Platelet Count 228 10 3/cmm MPV 9.5 fL Neutrophils 3.47 10 3/uL Lymphocytes 1.4 10 3/uL Monocytes 0.5 10 3/uL Eosinophils 1.3 10 3/uL Basophils 0.1 10 3/uL Neutrophil % 51.4 % Lymphocyte % 20.6 % Monocyte % 7.8 % Eosinophil % 19.2 % Basophils % 0.9 % NRBC % 0 % Problem List: 1. Non-small cell carcinoma involving her right hilar mass. Pathology favored squamous cell carcinoma. It appeared to be a new primary malignancy. By PET/CT there appeared to be additional right hilar adenopathy so that by clinical evaluation his disease appeared to be stage IIB (T2a, N1, M0). 2. He has a history of grade 3/4 adenocarcinoma involving the upper lobe of the left lung, stage IB (T2a, N0, M0), for which he underwent thoracotomy with left upper lobectomy and mediastinal lymphadenectomy on 09/04/2012. 3. COPD. 4. Hypertension. 5. Dyslipidemia. 6. Coronary artery disease with previous myocardial infarction. 7. Degenerative arthritis. 8. History of treated hepatitis C. 9. History of abdominal aortic aneurysm for which he underwent endograft repair in 2010. 10. Posttraumatic stress disorder with anxiety/depression. Problems Addressed with this Encounter and Plan: 1. Non-small cell carcinoma involving the perihilar region of the right lung. Pathology favored squamous cell carcinoma. By PET/CT there appeared to be additional right hilar adenopathy so that by clinical evaluation his disease appeared to be stage IIB (T2a, N1, M0). His disease was deemed inoperable. As such, he was treated with radiation concurrently with weekly carboplatin/paclitaxel chemotherapy. His chemotherapy was complicated by neutropenia and Abraxane was substituted for the paclitaxel due to steroid intolerance. He completed radiation on 11/20/2019 to a total dose of 6000 cGy. He received a total of 4 weekly chemotherapy infusions. He had a very good response by follow-up chest CT. On 01/16/2020 he began maintenance immunotherapy with durvalumab. He tolerated the initial infusion well, and he then continued treatment at 2-week intervals. He received cycle 6 of durvalumab on 04/16/2020. He continues to have somewhat marginal performance status, but he has been tolerating the immunotherapy with no significant adverse effects and thus far with no evidence of progression of the lung cancer. He will proceed with cycle 7 of durvalumab. The dosage remains the same. He returns for treatment in 2 weeks and for a follow-up visit in 4 weeks. Signed By: Gino Grissom M.D. <<Signature on File>>
== END 2020-05-07 23:59 | disposition home or self-care (01) ==
LOC: ONCMED 05:35
PROVIDERS: PCP Emergency Medicine Emergency Medical Services; Visit Provider Internal Medicine Medical Oncology
DX: Z51.12 Encounter for antineoplastic immunotherapy (principal); C34.01 Malignant neoplasm of right main bronchus; C77.1 Secondary and unspecified malignant neoplasm of intrathoracic lymph nodes; Z79.899 Other long term (current) drug therapy; Z85.118 Personal history of other malignant neoplasm of bronchus and lung; Z90.2 Acquired absence of lung [part of]; Z92.3 Personal history of irradiation
CPT/HCPCS: 36593; 80053; 84443; 85025; 96375; 96413; 99214; J2997; J7050; J9173

== ENCOUNTER 2020-05-15 08:14 | Emergency (ER) | payer OTHER, MEDICARE, SELFPAY ==
[2020-05-15 08:19] VITALS: BP 207/103; PULSE 90; RESP 16; TEMP 37.1; O2SAT 94; BMI 30.4
--- NOTE | 2020-05-15 08:28 | CT_ITS ---
WS: [id number] CT HEAD TECHNIQUE: Noncontrast CT of the head obtained from the skullbase to the vertex. CLINICAL INFORMATION: vision loss COMPARISON: None. DLP: 914.[address] scans at [facility] use at least one of these dose optimization techniques: automat ed exposure control; mA and/or kV adjustment per patient size (includes targeted exams where dose is matched to clinical indication); or iterative reconstruction. FINDINGS: No evidence of intracranial hemorrhage. Bilateral well-circumscribed parietal intraparenchymal lesion s measuring 2.9 x 2.3 cm on the left and 2.1 x 1.9 cm on the right. Moderate surrounding edema about both lesions. Mild mass effect on the right parietal horn. Mass effect on the left occipital horn and left atrium. No significant midline shift. No hydrocephalus. No extra-axial fluid collections. Mastoid air cells and paranasal sinuses are well aerated. Prior postoperative changes right frontal s inus. Visualized orbits appear grossly normal. Normal visualized optic chiasm. CT/CT head wo con* [id number] IMPRESSION: 1. Well-circumscribed low-attenuation bilateral parietal lesions with moderate surrounding edema most consistent with metastatic disease. 2. Largest lesion in the left parietal lobe measuring 2.9 x 2.3 CM. Right christina etal lesion measures 1.9 x 2.0 CM. Recommend further evaluation MRI without and with gadolinium enhancement for better anatomic detail and to evaluate for add itional disease. 3. Mild mass effect on the surrounding brain parenchyma in both parietal lobes . Mild mass effect on the right lateral ventricle and left temporal horn. 4. No hydrocephalus. 5. No significant midline shift. 6. No intracranial hemorrhage. Notified Eleazar Thomas DO at 05/15/2020 8:50 AM.
--- NOTE | 2020-05-15 08:48 | ED_ITS ---
HPI - Nausea/Vomiting/Diarrhea General: Chief complaint: Nausea/Vomiting/Diarrhea Stated complaint: N/V/Post op on eyes Time Seen by Provider: 05/15/20 08:28 History of Present Illness: HPI Narrative: 64-year-old male presents emergency room with complaints of nausea vomiting and poor vision in his left eye. The visual issues have been ongoing. He had a cataract surgery yesterday since his surgery he has had nausea and vomiting. Is not been taking his blood pressure medicines. He has been off of them for about a month. Patient has a history of lung CA was diagnosed approximately 15 months ago 3 months ago he completed a course of chemo and radiation. He was taken off his antihypertensives during his treatments and has not restarted them.. Patient had a adeno CA of the left upper lung with a resection in 2012 and then had a recurrence with what according to oncology note look like a squamous cell CA in the right hilar region. Patient reports exceptionally poor vision in the left eye he did not improve after his cataract surgery MD elicited complaint: nausea and vomiting Pertinent past history: other (Non-small cell CA with a longer favor squamous cell, recent cataract surgery, hypertension) Onset (ago): hour(s) Associated nausea: Yes Associated abdominal pain: No Location of pain: Other (Headache) Exacerbating factors: vomiting and movement Relieving factors: rest Context: recent surgery/procedure (Left cataract) Associated symtoms: Reports fatigue, headache(s), anorexia, malaise, myalgias and nausea; Denies altered mental status, anxiety, bloating, change in vision, chest pain, cough, diaphoresis, decreased urine output, dizziness, dysuria, epistaxis, fecal incontinence, fevers/chills, numbness, palpitations, rash, short of breath, syncope, tenesmus, tinnitus or weakness Review of Systems Const: Reports: fatigue and malaise; Denies: diaphoresis Eyes: Denies: change in vision ENMT: Denies: tinnitus or epistaxis Card: Denies: chest pain, palpitations or syncope Resp: Denies: dyspnea, productive cough or non-productive cough GI: Reports: nausea; Denies: bloating or fecal incontinence : Denies: dysuria Skin/Breast: Denies: rash or pruritus Neuro: Reports: headache(s); Denies: dizziness Psych: Denies: anxiety PFSH ED PFSH: Medical History Allergies Aortic aneurysm Arthritis COPD (chronic obstructive pulmonary disease) Heart attack History of hepatitis C HTN (hypertension) Port-A-Cath in place (10/03/19) Surgical History H/O aortic aneurysm repair H/O circumcision H/O colonoscopy 3 yrs ago H/O hernia repair S/P lobectomy of lung Family History Father Cancer Family/Other CAD (coronary artery disease) Cancer Grandfather Cancer Mother Brain aneurysm Denies family history of Anesthesia complication Bleeding disorder Social History Smoking and tobacco status: current every day smoker cigarettes Years cigarettes smoked: 50 [ Other cigarette details: Hx of 2PPD x 50 Years ] Quit status (tobacco): considering quitting Smoking risk assessment/counseling performed?: Yes Alcohol intake: current Alcohol intake frequency: 0-2 Drinks per Day Alcohol type: beer Lives independently: Yes Household members: spouse Marital status: service: Yes Current occupational status: disabled History of recent travel: No Current gender identity: Male Physical Exam Const: COMMON NORMALS: no acute distress EXAM LIMITATIONS: no altered mental status GENERAL APPEARANCE: cooperative and comfortable ORIENTATION/CONSCIOUSNESS: Yes awake, Yes oriented to person, Yes oriented to place and Yes oriented to time HENMT: COMMON NORMALS: normocephalic, atraumatic and hearing grossly normal bilaterally HEAD & SCALP: normocephalic and atraumatic Eye: OTHER: Mild redness of the left eye sclera. No pain. Due to the recent surgery I did not check an intraocular pressure. Patient can perceive light shined directly in the eye but cannot focus on anything. Neck/C-Spine: COMMON NORMALS: no JVD Resp: COMMON NORMALS: normal respiratory effort, No retractions, No use of accessory muscles and clear to auscultation bilaterally AUSCULTATION: clear to auscultation bilaterally Cardio: COMMON NORMALS: no JVD, regular rate, regular rhythm and No murmurs present (Cardio) RATE: regular rate RHYTHM: regular rhythm GI: COMMON NORMALS: Soft to palpation and No hepatosplenomegaly present AUSCULTATION: Yes normoactive bowel sounds PALPATION: Yes Soft to palpation, No Tenderness to palpation present (GI), No Guarding due to palpation present (GI) and Yes No hepatosplenomegaly present Extremity: COMMON NORMALS: normal to inspection, capillary refill normal, no clubbing, cyanosis or edema, no calf tenderness and no pedal edema Neuro: SENSORIUM/ORIENTATION: Yes oriented to person, Yes oriented to place and Yes oriented to time Skin: COMMON NORMALS: no rashes or lesions noted GENERAL SKIN EXAM: no rashes or lesions noted Course Vital Signs: Vital signs: Vital Signs Temperature 98.8 F 05/15/20 08:19 Pulse Rate 114 H 05/15/20 11:00 Respiratory Rate 16 05/15/20 11:00 Blood Pressure 159/83 05/15/20 11:00 Pulse Oximetry 94 05/15/20 11:00 MDM - Nausea/Vomiting/Diarrhea MDM Narrative: Medical decision making narrative: CT the head shows metastasis most likely from his lung CA there is 2 separate areas see the CT report. Blood pressure improved with treatment. I believe he will need to restart his blood pressure medications. Talked with Dr. Grissom as well as Dr. Padilla the radiation oncology also talked with the on-call neurosurgeon at [facility]. Finally talked to his continuous yarn dyeing machine operator who did the surgery at [facility] yesterday. As to blood pressure we will restart his blood pressure medication she is to recheck blood pressure within a week. For the new finding of mets to the brain. We will try to get an MRI set up. He will have to be aerated for an outpatient basis due to his [facility] status we cannot order it from the emergency room. He is not neurologically compromised at this time. He was given dexamethasone here and started on dexamethasone 4 mg 4 times daily. He has no other focal neurologic deficits and his visual loss preceded his surgery just did not improve. I talked Dr. Grissom who referred him to radiation oncology. Dr. Robles of radiation oncology suggested we talk to neurosurgery. I asked uploaded the images and talk to the neurosurgeon they did not feel he would be a neurosurgical candidate that he should undergo radiation first that he would also need an MRI. There was no benefit to transferring the patient as neurosurgery stated that they would likely just discharge him home for an outpatient MRI. This was what we had anticipated. I did want to reviewed with them as per Dr. Weaver's recommendation. He will be seen at the radiation oncology clinic tomorrow morning. Case management will work with the [facility] to get the MRI set up. Final concern is as to his visual problems and headache. While certainly the lesions to the brain could cause a lot of his symptoms there is also the potential for the intraocular medication injected during cataract surgery to cause increased intraocular pressure this medicine may need to be further flushed from the eye I discussed with ophthalmology who did the procedure since we are discharging him home they would like him to go directly to their office while they were out further evaluate him for his potential complications from the cataract surgery itself. Of this was explained in the presence of his and daughter they expressed understanding of the plan and all questions answered. Lab Data: Labs: Lab Results 05/15/20 05/15/20 Range/Units 08:51 08:51 WBC 6.3 (4.0-10.0) 10^3/ uL RBC 4.62 (4.1-5.3) 10^6/u L Hgb 14.9 (11.7-16.6) g/dL Hct 44.3 (42.0-52.0) % MCV 95.9 H (80-94) fL MCH 32.3 (28.0-34.0) pg MCHC 33.6 (30.0-36.0) g/dL RDW 13.4 (12.1-15.1) % Plt Count 215 (130-400) 10^3/c mm MPV 9.7 (7.4-10.4) fL Neut % (Auto) 77.2 % Lymph % (Auto) 11.6 % [place] % (Auto) 7.8 % Eos % (Auto) 2.1 % Baso % (Auto) 1.0 % Neut # (Auto) 4.85 (1.8-7.7) 10^3/u L Lymph # (Auto) 0.7 L (0.8-4.8) 10^3/u L [place] # (Auto) 0.5 (0.2-0.9) 10^3/u L Eos # (Auto) 0.1 (0.0-0.8) 10^3/u L Baso # (Auto) 0.1 (0.0-0.1) 10^3/u L Nucleated RBC % (a uto) 0 % Nucleated RBCs # 0.0 /100WBC Sodium 135 L (136-145) mmol/L Potassium 3.8 (3.5-5.1) mmol/L Chloride 98 (98-107) mmol/L Carbon Dioxide 25 (22-29) mmol/L Anion Gap 15.8 (5-19) BUN 7 L (8-23) mg/dL Creatinine 0.6 L (0.7-1.2) mg/dL GFR Calculation 134.8 H (90-130) mL/min Glucose 148 H (65-115) mg/dL Calculated Osmolal ity 281 L (285-295) mOsm/k g Calcium 9.6 (8.5-10.5) mg/dL Total Bilirubin 0.7 (0.15-1.2) mg/dL AST 18 (0-40) U/L ALT 8 (0-41) U/L Alkaline Phosphata se 75 (40-130) IU/L Total Protein 7.4 (6.6-8.7) g/dL Albumin 4.5 (3.5-5.2) g/dL Globulin 2.9 (1.3-4.6) g/dL Discharge Plan Discharge Patient Disposition: Home Clinical Impression: Cataract with complication, Non-small cell lung cancer, Lung cancer metastatic to brain, Hypertension Condition: Stable Prescriptions: New dexamethasone 4 mg tablet 4 mg PO QID Qty: 90 RF: 0 amlodipine 5 mg tablet 5 mg PO DAILY Qty: 30 RF: 0 lisinopril 10 mg tablet 10 mg PO DAILY Qty: 30 RF: 0 No Action Stiolto Respimat 2.5-2.5 mcg/actuation mist 2 puff INHALATION DAILY Qty: 4 RF: 3 oxycodone 10 mg tablet 10 mg PO TID PRNRF: 0 pantoprazole 20 mg tablet,delayed release (DR/EC) 20 mg PO DAILY RF: 0 gabapentin 300 mg capsule 300 mg PO TID RF: 0 tamsulosin 0.4 mg capsule 0.4 mg PO DAILY RF: 0 guaifenesin 400 mg tablet 400 mg PO BID PRN (Reason: unknown) RF: 0 cetirizine [Zyrtec] 10 mg tablet 10 mg PO DAILY RF: 0 diclofenac sodium 75 mg tablet,delayed release (DR/EC) 75 mg PO BID RF: 0 aspirin [Aspirin Low Dose] 81 mg tablet,delayed release (DR/EC) 81 mg PO DAILY RF: 0 omega-3 fatty acids [Fish Oil Concentrate] 1,000 mg capsule 1,000 mg PO DAILY RF: 0 diphenhydramine HCl [Benadryl Allergy] 25 mg tablet 25 mg PO BID PRN (Reason: unknown) RF: 0 fluticasone propionate [Flonase Allergy Relief] 50 mcg/actuation spray,suspension 1 spray INTRANASAL BID 90 Days Qty: 18.2 RF: 3 Asmanex Twisthaler 110 mcg/ actuation (30) aerosol powdr breath activated 2 inh INHALATION DAILY 90 Days Qty: 3 RF: 3 albuterol sulfate 2.5 mg /3 mL (0.083 %) Solution For Nebulization 2.5 mg INHALATION Q6H PRN (Reason: Shortness Of Breath) RF: 0 albuterol sulfate [ProAir HFA] 90 mcg/actuation Hfa Aerosol Inhaler 2 puff INHALATION QID PRN (Reason: Shortness Of Breath) RF: 0 cholecalciferol (vitamin D3) [Vitamin D3] 50 mcg (2,000 unit) Tablet 4,000 unit PO DAILY RF: 0 Discharge Orders: Discharge ED (Routine); Ordered 05/15/20 Ordered By: Eleazar Thomas Referrals: Rico Winters, [Primary Care Provider] - Discharge Activity: Resume usual activity Patient Instructions: Opioid Safety Activity Restrictions/Additional Instructions: After you leave the ER go directly to your continuous yarn dyeing machine operator office he is expecting you. Do not eat or drink until you see him. You are scheduled to see the radiation oncologist Dr. Robles at the [facility] tomorrow at 8:30 AM. The rn field case manager is working with Dr. Robles's office to arrange for an MRI of the head to further evaluate the CT findings from the emergency room today. You were started on steroids for the brain mets. You were given 2 prescriptions for antihypertensives you should follow-up with your primary care doctor or Dr. Grissom for your blood pressure within the next week. Turn to the emergency room if you have further problems. Coding Level of Care Code ED Human Resources Training Manager for Micah Vizcaino
[2020-05-15] MEDS: nitroglycerin 1 gm/inch oint Pkt 1 INCH TOPICAL (08:58)
[2020-05-15] MEDS: amlodipine 10 mg Tablet PO (08:58)
[2020-05-15] MEDS: hyDRALAzine 20 mg/mL INJ 1 mL IVP (08:58)
[2020-05-15] MEDS: dexamethasone 10 mg/mL INJ IVP (08:58)
[2020-05-15 09:04] VITALS: BP 206/134; PULSE 92; RESP 20; O2SAT 95
[2020-05-15 09:09] LABS: Basophils # 0.1 10^3/uL (0.0-0.1); Eosinophils # 0.1 10^3/uL (0.0-0.8); Eosinophils % 2.1 %; Hematocrit 44.3 % (42.0-52.0); Hemoglobin 14.9 g/dL (11.7-16.6); Lymphocytes # 0.7 10^3/uL (0.8-4.8); Lymphocytes % 11.6 %; Mean Corpuscular HGB Conc 33.6 g/dL (30.0-36.0); Mean Corpuscular Hemoglobin 32.3 pg (28.0-34.0); Mean Corpuscular Volume 95.9 fL (80-94); Mean Platelet Volume 9.7 fL (7.4-10.4); Monocytes # 0.5 10^3/uL (0.2-0.9); Monocytes % 7.8 %; Neutrophils # 4.85 10^3/uL (1.8-7.7); Neutrophils % 77.2 %; Nucleated Red Blood Cells % 0 %; Platelet Count 215 10^3/cmm (130-400); Red Blood Count 4.62 10^6/uL (4.1-5.3); Red Cell Distribution Width 13.4 % (12.1-15.1); White Blood Count 6.3 10^3/uL (4.0-10.0)
[2020-05-15 09:21] LABS: Alanine Aminotransferase 8 U/L (0-41); Albumin Level 4.5 g/dL (3.5-5.2); Alkaline Phosphatase 75 IU/L (40-130); Blood Urea Nitrogen 7 mg/dL (8-23); Calcium 9.6 mg/dL (8.5-10.5); Carbon Dioxide 25 mmol/L (22-29); Chloride 98 mmol/L (98-107); Globulin 2.9 g/dL (1.3-4.6); Glomerular Filtration Rate 134.8 mL/min (90-130); Glucose 148 mg/dL (65-115); Osmolality Calculated 281 mOsm/kg (285-295); Sodium 135 mmol/L (136-145); Total Bilirubin 0.7 mg/dL (0.15-1.2); Total Protein 7.4 g/dL (6.6-8.7)
[2020-05-15 09:25] LABS: Anion Gap 15.8 (5-19); Aspartate Amino Transferase 18 U/L (0-40); Potassium 3.8 mmol/L (3.5-5.1)
[2020-05-15 09:52] VITALS: BP 163/87; PULSE 106; RESP 20; O2SAT 95
[2020-05-15 11:00] VITALS: BP 159/83; PULSE 114; RESP 16; O2SAT 94
[2020-05-15] MEDS: promethazine 25 mg/mL SDV 1 mL IM (11:00)
--- NOTE | 2020-05-16 07:51 | DCPLANNER ---
services account manager was asked to schedule an outpatient MRI for patient. Patient has [facility] insurance, and case operator is unable to schedule an MRI for patient out of the ER due to VA insurance. services account manager called Cate with [facility] and informed her that the ER physician was wanting to schedule an out patient MRI for patient. services account manager was told that notes would be put into patients chart for the PACT team to review and for the MRI to be ordered. When notes are finished and signed case operator will email Cate the patients chart over a secure email.
== END 2020-05-15 11:15 | disposition home or self-care (01) ==
PROVIDERS: Emergency Provider Family Medicine; PCP Emergency Medicine Emergency Medical Services
DX: H26.20 Unspecified complicated cataract (principal); C34.90 Malignant neoplasm of unspecified part of unspecified bronchus or lung; C79.31 Secondary malignant neoplasm of brain; I10 Essential (primary) hypertension; Z79.82 Long term (current) use of aspirin; J44.9 Chronic obstructive pulmonary disease, unspecified; Z86.19 Personal history of other infectious and parasitic diseases; F17.210 Nicotine dependence, cigarettes, uncomplicated
CPT/HCPCS: 70450; 80053; 85025; 96372; 96374; 96375; 99284; J0360; J1100; J2550

== ENCOUNTER 2020-05-19 14:19 | Outpatient (CLI) | payer OTHER, SELFPAY ==
--- NOTE | 2020-05-19 14:29 | MR_ITS ---
WS: [id number] MRI HEAD WITH CONTRAST TECHNIQUE: Sagittal T1, T2 axial, T2 axial FLAIR, axial susceptibility weighted imaging, axial diffus ion weighted images, and coronal T2 images were obtained. Pre and post-T1 axial and post T1 coronal i mages. ADC and FSPGR images. CLINICAL INFORMATION: ABNORMAL CT COMPARISON: CT May 15, 2020 FINDINGS: Some images degraded by patient motion. Peripheral enhancing cavitary bilateral parietal lesions similar in appearance to the recent CT. Larg est lesion in the left parietal lobe measures 2.8 x 2.9 CM. Right parietal lesion measures 1.9 x 1.6 cm. Moderate surrounding edema similar to the prior CT. Additional smaller peripheral enhancing lesio n involving the right posterior temporal lobe adjacent to the ventricle measuring 8 mm. Lesions demon strate peripheral restricted diffusion with some internal debris. Associated T2 hypointense rim. Diff erential considerations include intracranial abscess versus metastatic disease. Recommend correlation with infectious symptoms. Moderate surrounding edema about the parietal lesions with localized mass effect. Mild mass effect on the left atrium and occipital horn. No hydrocephalus or midline shift. No hemosiderin on susceptibly weighted images. Mild small vessel changes. Moderate parenchymal volume loss. Normal optic chiasm and pituitary infundibulum. Normal cavernous sinuses and Meckel's cave. No rmal posterior fossa. Normal vascular flow voids at the skull base. No extra-axial fluid collections. Paranasal sinuses and mastoid air cells well aerated. Mild mucosal thickening left mastoid tip. MR/MR head wo/w con [id number] IMPRESSION: 1. Peripheral enhancing cavitary bilateral parietal lesions similar in appeara nce to the recent CT. Peripheral restricted diffusion with T2 hypointense rim. Differential considerations include intracranial abscesses versus metastasis. R ecommend correlation for infectious symptoms 2. No hydrocephalus or midline shift. Left parietal lesion with mild mass effe ct on the left temporal horn 3. Additional small peripheral enhancing lesion along the posterior perihippoc ampal gyrus adjacent to the temporal horn measuring 7.2 mm. 4. Mild small vessel changes with moderate parenchymal volume loss. Notified Rico Winters DO at 05/19/2020 3:51 PM.
[2020-05-19] MEDS: gadobenate dimeglumine 20 mL vial IV (15:09)
== END 2020-05-19 14:20 | disposition home or self-care (01) ==
PROVIDERS: PCP Emergency Medicine Emergency Medical Services; Visit Provider Emergency Medicine Emergency Medical Services
DX: R93.89 Abnormal findings on diagnostic imaging of other specified body structures (principal)
CPT/HCPCS: 70553; A9577

== ENCOUNTER 2020-06-06 11:20 | Outpatient (RCR) | payer OTHER, MEDICARE, SELFPAY ==
--- NOTE | 2020-05-21 15:06 | N.ONRAD NP_ITS ---
Radiation Oncology Consultation Patient Name: Satish Fry Date of : 1955 Date of Service: 05/21/2020 Attending Physician: Win Robles M.D. Satish Fry was seen in consultation this afternoon at the request of Gino Grissom M.D. for consideration of palliative cranial radiotherapy for the management of non-small cell lung cancer with newly diagnosed brain metastases. 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 He completed concurrent chemoradiotherapy in November 2019 (60 Gy in 30 fractions) and 4 cycles of carboplatin and Abraxane (October 09, 2019 through November 12, 2019) and currently continues maintenance Imfinzi (cycle 7, Day 1 was administered on May 07, 2020). He was evaluated at the [facility] (admission records were reviewed personally reviewed in [facility]) after presenting with decreased within the left eye associated with vomiting on May 15, 2020. Cataract surgery was performed the previous day. Initial blood pressure was 207/103 mm (Hg) and lab values were unremarkable except for a mildly elevated glucose and a low serum osmolality. A CT of the head (independently reviewed in [facility]) revealed 2.9 cm x 2.3 cm left hemispheric lesion and a 1.9 cm x 2 cm right parietal lesion that were associated with moderate edema and mass-effect upon the right parietal horn, the left occipital horn, and left atrium. An MRI ordered on May 19, 2020 confirmed the left parietal and right parietal lobe lesions. An additional peripheral enhancing lesion measuring 8 mm was identified in the right posterior temporal lobe adjacent to the ventricle. Mr. Fry presents to my office for discussion regarding palliative cranial radiotherapy. Following a discussion concerning Mr. Declan LONDON, I reviewed the National Comprehensive Cancer Network Guidelines endorsing stereotactic radiosurgery for patients with newly diagnosed or stable systemic disease with limited brain metastases. I would recommend an ultra-hypofractionated course of radiotherapy. A computed tomographic radiotherapy planning scan in the treatment position will be acquired and co-registered to the patient's MR to identify the gross tumor volumes. The potential toxicities of SRS were reviewed. The patient has verbalized understanding would like to proceed as recommended. Signed by: Dr. Win Robles 06/18/2020 12:54:09 PM
--- NOTE | 2020-05-22 | CT_ITS ---
Radiation Therapy Planning CT images; total exam DLP: 1140.77 mGy-cm MTDD
--- NOTE | 2020-05-26 15:48 | ONCRAD TMN_ITS ---
SRS Radiation Oncology Treatment Management Note Patient Name: Satish Fry Date of : 1955 Date of Service: 05/26/2020 Attending Physician: Win Robles M.D. 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 He completed concurrent radiotherapy in November 2019 (60 Gy in 30 fractions) and 4 cycles of carboplatin and Abraxane (October 09, 2019 through November 12, 2019) and currently continues maintenance Imfinzi (cycle 7, Day 1 was administered on May 07, 2020). An MRI ordered on May 19, 2020 identified a 2.8 cm x 2.9 cm left parietal mass, a 1.9 cm x 1.6 cm right parietal lobe lesion, and an 8 mm right posterior temporal lobe. The patient has received 24 Gy of a prescribed 24 Voss with an intensity modulated radiotherapy plan delivered utilizing stereotactic radiosurgery to the right posterior temporal lobe lesion. Upon review of systems, he denied any neurological complaints. On physical examination, the patient weighed 199 lbs. His temperature was 98.5 ???F with a blood pressure of 147/77 mmHg. His pulse was 83 bpm and his respiratory rate was 20. Cranial nerves were intact. No muscular weakness upon testing. SRS to the right posterior frontal lobe lesion was completed today. He will return to begin fractionated stereotactic radiosurgery to the left parietal lobe mass. Signed by: Dr. Win Robles 05/26/2020 3:46:34 PM
[2020-06-04] MEDS: alteplase 1 mg/mL SDV 2 mL 2 MG IV (12:00)
[2020-06-04 12:17] LABS: Hematocrit 43.2 % (42.0-52.0); Hemoglobin 14.5 g/dL (11.7-16.6); Lymphocytes # 0.5 10^3/uL (0.8-4.8); Lymphocytes % 5.9 %; Mean Corpuscular HGB Conc 33.6 g/dL (30.0-36.0); Mean Corpuscular Hemoglobin 31.9 pg (28.0-34.0); Mean Corpuscular Volume 94.9 fL (80-94); Mean Platelet Volume 9.9 fL (7.4-10.4); Monocytes # 0.3 10^3/uL (0.2-0.9); Neutrophils # 8.31 10^3/uL (1.8-7.7); Neutrophils % 90.2 %; Nucleated Red Blood Cells % 0 %; Platelet Count 146 10^3/cmm (130-400); Red Blood Count 4.55 10^6/uL (4.1-5.3); Red Cell Distribution Width 13.2 % (12.1-15.1); White Blood Count 9.2 10^3/uL (4.0-10.0)
[2020-06-04 12:46] LABS: Alanine Aminotransferase 22 U/L (0-41); Albumin Level 3.8 g/dL (3.5-5.2); Alkaline Phosphatase 54 IU/L (40-130); Aspartate Amino Transferase 19 U/L (0-40); Blood Urea Nitrogen 22 mg/dL (8-23); Calcium 8.5 mg/dL (8.5-10.5); Carbon Dioxide 24 mmol/L (22-29); Chloride 94 mmol/L (98-107); Globulin 2.4 g/dL (1.3-4.6); Glomerular Filtration Rate 96.7 mL/min (90-130); Glucose 244 mg/dL (65-115); Osmolality Calculated 287 mOsm/kg (285-295); Sodium 133 mmol/L (136-145); Thyroid Stimulating Hormone 0.12 uIU/mL (0.27-4.20); Total Bilirubin 0.4 mg/dL (0.15-1.2); Total Protein 6.2 g/dL (6.6-8.7)
--- NOTE | 2020-06-06 12:02 | ONCRAD TMN_ITS ---
SRS Radiation Oncology Treatment Management Note Patient Name: Satish Fry Date of : 1955 Date of Service: 06/06/2020 Attending Physician: Win Robles M.D. 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 He completed concurrent radiotherapy in November 2019 (60 Gy in 30 fractions) and 4 cycles of carboplatin and Abraxane (October 09, 2019 through November 12, 2019) and currently continues maintenance Imfinzi (cycle 7, Day 1 was administered on May 07, 2020). An MRI ordered on May 19, 2020 identified a 2.8 cm x 2.9 cm left parietal mass, a 1.9 cm x 1.6 cm right parietal lobe lesion, and an 8 mm right posterior temporal lobe. The patient has received 30 Gy of a prescribed 30 Gy with an intensity modulated radiotherapy plan delivered utilizing stereotactic radiosurgery to the left parietal lobe lesion. Upon review of systems, he denied any neurological complaints. On physical examination, the patient weighed 196 lbs. His temperature was 98.3 ???F with a blood pressure of 134/77 mmHg. His pulse was 81 bpm and his respiratory rate was 20. There were no neurological deficits. SRS to the left parietal lobe lesion was completed today. I will reduce the glucocorticoid dose to 4 mg daily. He will return to begin fractionated stereotactic radiosurgery to the right parietal lobe mass. Signed by: Dr. Win Robles 06/06/2020 12:01:15 PM
--- NOTE | 2020-06-17 09:26 | ONC FU_ITS ---
[facility] Patient Note Patient: Satish Fry Unit #: [id number]: 1955 Dictated By: Santino ChristensenDate of Visit: Jun 04, 2020 Onc MED Follow-Up/Prog Note Chief Complaint: Lung cancer. History of Present Illness: Mr Fry is a 64 year-old man with non-small cell lung cancer involving the perihilar region of the right lung, stage IIB (T2a, N1, M0). He has a prior history of non-small cell carcinoma of the left lung. On 09/04/2012 he had undergone left upper lobectomy with mediastinal lymphadenectomy for grade 3/4 adenocarcinoma, stage IB (T2a, N0, M0). The primary tumor measured 3.1 x 3.0 x 2.6 cm. There was no involvement in a total of [address] Grissom had seen him for medical oncology consultation on 09/28/2012. He received no further treatment, as there appeared to be no indication for postoperative chemotherapy or radiation. On 07/20/2019 he had presented to the emergency room with chest pain and shortness of breath. His CT pulmonary angiogram showed no evidence of pulmonary embolism. However, he was noted to have a 3.3 x 3.8 cm right hilar mass encasing the central right bronchopulmonary structures. There was invasion into the superior right pulmonary vein. There was additional subcarinal lymph node measuring 1.2 cm. Groundglass attenuation along the right minor fissure appeared compatible with either pneumonitis or lymphangitic spread of tumor. Staging PET/CT on 08/18/2019 showed perihilar mass in the right upper lobe measuring 2.8 cm in diameter with SUV 13.5, consistent with malignancy. A secondary right hilar lymph node measuring 1.4 x 2.5 cm with SUV 9.5, consistent with metastatic disease. The subcarinal lymph node did not demonstrate significant FDG activity and other mediastinal lymph nodes appeared radiographically benign and FDG negative. On 08/22/2019 he underwent bronchoscopy/EBUS with transbronchial needle aspiration biopsy of station 7 and station 10R lymph nodes. There were no endobronchial lesions identified. Pathology on the station 7 lymph node showed benign reactive lymph node with no evidence of dysplastic or neoplastic process. The 10R lymph node showed metastatic non-small cell carcinoma favoring squamous cell carcinoma. As his disease was deemed inoperable, he was recommended to undergo chemoradiation. He began radiation concurrently with weekly carboplatin/paclitaxel chemotherapy on 10/09/2019. His initial chemotherapy was complicated by neutropenia and by steroid intolerance, and with his further chemotherapy Abraxane was substituted for paclitaxel. He completed radiation on 11/20/2019 to a total dose of 6000 cGy. He received a total of 4 weekly chemotherapy infusions. His restaging chest CT on 12/24/2019 showed significant decrease in the right hilar mass, which at that point was hardly discernible. Subcarinal lymphadenopathy appeared unchanged. With that response, he then began maintenance immunotherapy with durvalumab. His other medical illnesses include hypertension, dyslipidemia, and coronary artery disease with previous myocardial infarction. He has significant underlying COPD. 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 He also has degenerative arthritis and posttraumatic stress disorder with anxiety/depression. He has a history of smoking 2 packs of cigarettes daily for 50 years. INTERIM HISTORY: He began cycle 1 of durvalumab on 01/16/2020. He tolerated it without adverse effects, and he then continued treatment at 2-week intervals. CT pulmonary angiogram on 03/12/2020 showed no evidence of pulmonary embolus. There was stable bronchovascular thickening along the right hilum and there was stable subcarinal lymphadenopathy measuring 1.6 cm. There was no evidence of disease progression. He continued his maintenance immunotherapy. He received cycle 7 on 05/07/2020. Mr. Fry is here today for follow-up. He is due for cycle 8 Imfinzi. Mr. Fry was in the emergency room at [facility] on May 15, 2020 with nausea vomiting diarrhea. He also had poor vision in his left eye. He had actually had cataract surgery the day prior to the ER visit and had nausea vomiting since the surgery. The left eye poor vision and did not improve after the cataract surgery was his concern during the ER visit. He did have a CT of the head without contrast on 05/15/2020 during the ER visit. Reported no evidence of intracranial hemorrhage but there were bilateral well-circumscribed parietal intraparenchymal lesions measuring 2.9 x 2.3 on the left and 2.1 x 1.9 cm on the right. Moderate surrounding edema with both lesions. Mild mass-effect on the right parietal horn. Mass-effect on the left occipital horn and left atrium. No significant midline shift. No hydrocephalus. No extra-axial fluid collections. He presented for followup MRI of the head with contrast on May 19, 2020. The impression was peripheral enhancing cavitary bilateral parietal lesion similar to appearance and regard to the recent CT. Peripheral restriction diffusion with T2 hypointense rim. Differential considerations include intracranial abscess versus metastasis. Recommend correlation for infectious symptoms. There is no hydrocephalus or midline shift. Left parotid lesion with mild mass-effect on the left temporal horn. Additional small peripheral enhancing lesion along the posterior perihippocampal gyrus adjacent to the temporal horn measuring 7.2 mm. Mild small vessel changes with moderate parenchymal volume loss. Mr. Fry was referred to Dr. Win Robles in ration oncology at [facility] and was seen there on 05/21/2020 for consideration of palliative cranial radiotherapy. Dr. Robles did recommend ultra hypofractionated course of radiotherapy. He did have SRS to the right posterior frontal lobe lesion on 05/26/2020 to a total of 24 Voss. He was then scheduled to begin fractionated stereotactic radiosurgery to the left parietal lobe mass. He is scheduled to begin ration therapy later this week. He has no new concerns today. He states his vision is somewhat better. He denies any headaches or new vision concerns. He denies any hot flashes. He denies any further nausea or vomiting. He denies any fever or chills. He states he is eating better. His energy is fair. He denies any new pain. He denies any shortness of breath, orthopnea cough or hemoptysis. He denies any chest pain or palpitations. Overall he states he feels okay . He is trying to be active around the house some but tires easily although he does recover well with rest. His ECOG is 1. Past Medical History: Abdominal aortic aneurysm Anxiety Chronic obstructive pulmonary disease Coronary artery disease Degenerative arthritis Depression Dyslipidemia History of treated hepatitis C Hypertension Post traumatic stress disorder Past Surgical History: Cataracts - left eye Repair of abdominal aortic aneurysm Umbilical hernia repair Left upper lobectomy in 2013 Endograft repair of abdominal aortic aneurysm in 2010 Allergies: PENICILLIN and Statins. Medications: Albuterol Sulfate 2.5 mg (of 2.5 mg/0.5mL) Nebulization solution Inhalation q 6 hours PRN amLODIPine Besylate 1 Tablet (of 5 mg) Oral daily Asmanex HFA 2 Inhalation Aerosol Inhalation daily Aspirin 1 Tablet (of 81 mg) Tablet, enteric coated Oral daily Benadryl Allergy 1 Tablet (of 25 mg) Tablet Oral daily PRN Cetirizine HCl 1 Tablet (of 10 mg) Oral daily Dexamethasone 1 Tablet (of 4 mg) Oral b.i.d. Diclofenac 1 Capsule Oral daily PRN Fish Oil 1 Capsule Oral daily Fluticasone Propionate 1 [place](s) (of 50 mcg/act) Suspension Nasal b.i.d. Gabapentin 1 (300 mg) Capsule Oral t.i.d. guaiFENesin 1 Tablet (of 400 mg) Oral b.i.d. PRN Lisinopril 1 Tablet (of 10 mg) Oral daily oxyCODONE HCl 1 Tablet (of 10 mg) Oral t.i.d. PRN Pantoprazole Sodium 1 Tablet (of 40 mg) Tablet, enteric coated Oral daily ProAir HFA 2 Puff(s) (of 108 (90 base) mcg/act) Aerosol, solution Inhalation four times a day PRN Stiolto Respimat 2 Puff(s) (of 2.5-2.5 mcg/act) Aerosol, solution Inhalation daily Tamsulosin HCl 1 Capsule (of 0.4 mg) Oral daily Vitamin D 2 Capsule Oral daily Family History: Mr. Fry's mother at age 83: Brain aneurysm. Mr. Fry's father at age 64: prostate cancer. His paternal grandfather is : pancreatic cancer. Mr. Fry has 1 brother who is : liver cancer. He has 1 paternal aunt who is : lung cancer. He has 1 maternal uncle who is : lymphoma. Father of prostate cancer at age 64. Mother with a cerebral aneurysm at age 83. A brother with liver cancer at age 56. His paternal grandfather had pancreatic cancer, a maternal uncle had lymphoma, and a paternal aunt had lung cancer. Social History: Mr. Fry is and he is an on disability. He is a daily smoker who has smoked 0.5 packs/day for 51 years. He drinks occasionally. He consumes 2 drinks/day 7 days/week. He has indicated exposure to the following products: cigarettes. Mr. rFy reports the following support systems: lives with spouse, significant other, family, or friends, lives in own house, supportive family/friends willing to assist with needs, and adequate transportation available for expected visits. His diet consists of regular meals. He indicates his activity level as: regular exercise. Review Of Symptoms: <See Above> Vital Signs: Performed on Jun 04, 2020 12:55 Height - 68.50 in Weight - 201.8 lbs (HIGH) BSA - 2.06 sq.m BMI - 30.24 (HIGH) Temperature - 98.5 F Pulse - 101 /min (HIGH) Respiration - 18 /min BP - 161/80 mm(hg) (HIGH) O2 Sat - 96 % Pain - 0,1 - No physically strenuous activity, but ambulatory and able to carry out light or sedentary work (e.g. office work, light house work). (ECOG) Physical Examination: Constitutional Alert, oriented, no acute distress. Skin pink, warm and dry. Head Normocephalic; atraumatic. Eyes Conjunctivae and sclerae are clear and without icterus. Pupils are reactive and equal. Neck Supple without masses or thyromegaly. No jugular venous distension. Hematologic/Lymphatic No petechiae or purpura. No tender or palpable lymph nodes in the cervical or supraclavicular areas. Respiratory Lungs are noted to have wheezing bilaterally-improve with cough. No congestion appreciated. Cardiovascular Regular rate and rhythm of heart without murmurs,clicks, gallops or rubs. Back/Spine Non-tender to palpation. Extremities No visible deformities, no cyanosis, clubbing or edema. Musculoskeletal No tenderness or swelling, normal range of motion without obvious weakness. Integumentary No rashes or lesions. Neurologic No sensory or motor deficits, normal cerebellar function, normal gait. Psychiatric Alert and oriented times three. Coherent speech. Verbalizes understanding of our discussions today. Laboratory:Test performed on Jun 04, 2020 11:46 Sodium 133 mmol/L TSH 0.12 uIU/mL Potassium 4.0 mmol/L Chloride 94 mmol/L CO2 24 mmol/L Anion Gap 19.0 BUN 22 mg/dL Creatinine 0.8 mg/dL Cr Clearance (Est) 118.8800 mL/min eGFR 96.7 mL/min Glucose 244 mg/dL Osmolality - Calculated 287 mOsm/kg Calcium 8.5 mg/dL Protein, Total 6.2 g/dL Albumin 3.8 g/dL Globulin 2.4 g/dL Bilirubin, Total 0.4 mg/dL ALT (SGPT) 22 U/L AST (SGOT) 19 U/L Alkaline Phosphatase 54 IU/L WBC 9.2 10 3/uL RBC 4.55 10 6/uL HGB 14.5 g/dL HCT 43.2 % MCV 94.9 fL MCH 31.9 pg MCHC 33.6 g/dL RDW 13.2 % Platelet Count 146 10 3/cmm MPV 9.9 fL Neutrophils 8.31 10 3/uL Lymphocytes 0.5 10 3/uL Monocytes 0.3 10 3/uL Eosinophils 0.0 10 3/uL Basophils 0.0 10 3/uL Neutrophil % 90.2 % Lymphocyte % 5.9 % Monocyte % 3.0 % Eosinophil % 0.0 % Basophils % 0.0 % NRBC % 0 % Impression: 1. Non-small cell carcinoma involving her right hilar mass. Pathology favored squamous cell carcinoma. It appeared to be a new primary malignancy. By PET/CT there appeared to be additional right hilar adenopathy so that by clinical evaluation his disease appeared to be stage IIB (T2a, N1, M0). 2. He has a history of grade 3/4 adenocarcinoma involving the upper lobe of the left lung, stage IB (T2a, N0, M0), for which he underwent thoracotomy with left upper lobectomy and mediastinal lymphadenectomy on 09/04/2012. 3. COPD. 4. Hypertension. 5. Dyslipidemia. 6. Coronary artery disease with previous myocardial infarction. 7. Degenerative arthritis. 8. History of treated hepatitis C. 9. History of abdominal aortic aneurysm for which he underwent endograft repair in 2010. 10. Posttraumatic stress disorder with anxiety/depression. Plan/Problems Addressed at this Visit: 1. Non-small cell carcinoma involving the perihilar region of the right lung. Pathology favored squamous cell carcinoma. By PET/CT there appeared to be additional right hilar adenopathy so that by clinical evaluation his disease appeared to be stage IIB (T2a, N1, M0). His disease was deemed inoperable. As such, he was treated with radiation concurrently with weekly carboplatin/paclitaxel chemotherapy. His chemotherapy was complicated by neutropenia and Abraxane was substituted for the paclitaxel due to steroid intolerance. He completed radiation on 11/20/2019 to a total dose of 6000 cGy. He received a total of 4 weekly chemotherapy infusions. He had a very good response by follow-up chest CT. On 01/16/2020 he began maintenance immunotherapy with durvalumab. He tolerated the initial infusion well, and he then continued treatment at 2-week intervals. He received cycle 6 of durvalumab on 04/16/2020. He continues to have somewhat marginal performance status, but he has been tolerating the immunotherapy with no significant adverse effects and thus far with no evidence of progression of the lung cancer. He has now completed 7 cycles of durvalumab with his last treatment on May 07, 2020. He has been diagnosed with brain metastasis as of MRI on 05/19/2020. There were bilateral lesions. He completed SRS to the right posterior frontal lobe lesion to a total of 24 Voss on 05/26/2020. He is scheduled to proceed with fractionated stereotactic radiation to the left parietal lobe later this week. A. We will plan to hold his planned durvalumab today as he is receiving radiation therapy to the brain later this week. He did have 1 dose on 05/26/2020 to the right posterior frontal lobe lesion. B. Today's labs reviewed in detail discussed with Mr. Fry and a copy was given to him. WBC 9.2, hemoglobin 14.5, platelets 246,000 ANC is 8310. Potassium 4.0 random glucose 244 creatinine 0.8 LFTs were normal. His weight is stable at 201.8. C. We will plan to have him return in 2 weeks with CBC CMP magnesium and TSH. We will plan to resume his durvalumab at that time if he is completed radiation therapy. D. He will continue his current dose of dexamethasone 4 mg twice daily. E. Mr. Fry was instructed to contact us in the interim should questions or problems arise. Signed By: Samina Christensen, AOP Gino Grissom MD <<Signature on File>>
== END 2020-06-06 23:59 | disposition home or self-care (01) ==
LOC: ONCMED 11:20
PROVIDERS: Nurse Practitioner; Absent Provider Radiology Radiation Oncology; PCP Emergency Medicine Emergency Medical Services; Visit Provider Radiology Radiation Oncology
DX: Z51.0 Encounter for antineoplastic radiation therapy (principal); C34.01 Malignant neoplasm of right main bronchus; C34.12 Malignant neoplasm of upper lobe, left bronchus or lung; C79.31 Secondary malignant neoplasm of brain; I71.4 Abdominal aortic aneurysm, without rupture; F41.9 Anxiety disorder, unspecified; J44.9 Chronic obstructive pulmonary disease, unspecified; I25.10 Atherosclerotic heart disease of native coronary artery without angina pectoris; F32.9 Major depressive disorder, single episode, unspecified; E78.5 Hyperlipidemia, unspecified; I10 Essential (primary) hypertension; F43.10 Post-traumatic stress disorder, unspecified; Z79.899 Other long term (current) drug therapy
CPT/HCPCS: 36593; 77300; 77301; 77334; 77336; 77338; 77372; 77373; 77470; 80053; 84443; 85025; 96374; 99205; 99214; J2997

== ENCOUNTER 2020-06-16 05:40 | Outpatient (RCR) | payer OTHER, MEDICARE, SELFPAY | END 2020-06-17 12:30 | disposition home or self-care (01) | LOC: ONCMED 05:40 | PROVIDERS: Absent Provider Radiology Radiation Oncology; PCP Emergency Medicine Emergency Medical Services; Visit Provider Radiology Radiation Oncology | DX: Z51.0 Encounter for antineoplastic radiation therapy (principal); C34.12 Malignant neoplasm of upper lobe, left bronchus or lung; C34.01 Malignant neoplasm of right main bronchus; C79.31 Secondary malignant neoplasm of brain; Z79.899 Other long term (current) drug therapy | CPT/HCPCS: 77373 ==

== ENCOUNTER 2020-06-17 13:00 | Emergency (ER) | payer OTHER, MEDICARE, SELFPAY ==
[2020-06-17 13:09] VITALS: BP 120/74; PULSE 100; RESP 18; TEMP 37.2; O2SAT 97; BMI 28.3
[2020-06-17 13:31] VITALS: BP 105/69; PULSE 104; RESP 16; O2SAT 97
--- NOTE | 2020-06-17 13:35 | XRR_ITS ---
PROCEDURE INFORMATION: Exam: XR Right Hand Exam date and time: 06/17/2020 2:01 PM Age: 64 years old Clinical indication: Injury or trauma; Other: Hit corner of dresser; Blunt trauma (contusions or hematomas); Hand; Right; Injury date: 06/14/20; Additional info: Injury/poss infection TECHNIQUE: Imaging protocol: XR Right hand. Views: 3 or more views. Total images: 3 COMPARISON: No relevant prior studies available. FINDINGS: Bones/joints: No visible acute osseous abnormality, fracture, subluxation, or dislocation. No radiographically visible joint effusion. Osteopenia. Mild primary osteoarthritis. Soft tissues: Soft tissues without evidence of edema, swelling, contusion, emphysema, or radiopaque foreign body. XR/XR hand RT min 3V* [id number] IMPRESSION: Nonacute.
--- NOTE | 2020-06-17 13:36 | ED_ITS ---
HPI - Extremity Problem General: Chief complaint: Extremity Injury, Upper Stated complaint: R HAND INJURY: PAIN/SWELLING Time Seen by Provider: 06/17/20 13:03 Source: patient and family () Mode of arrival: ambulatory Limitations: no limitations History of Present Illness: HPI Narrative: Patient is a 64-year-old male who presents to ED today with a complaint of a right hand injury. Patient tells me approximately 4 days ago he rolled over in bed and accidentally struck the dorsal aspect of his right hand on the corner of his nightstand sustaining a small wound. He states since then the area has been painful and he has started noticing some redness around the abrasion/puncture site. No fevers. No streaking up his arm. MD Complaint: extremity pain and extremity swelling Onset (ago): day(s) Pain Consistency: constant Location: right and upper extremity Radiation: none Relieving factors: nothing Exacerbating factors: range of motion and palpation Associated symptoms: Reports no associated symptoms; Deny fever(s) Review of Systems Const: Denies: fever(s), chills or body aches Musc: Reports: extremity pain (R hand) and extremity swelling (R hand); Denies: joint pain or joint swelling Skin/Breast: Reports: other (abrasion/wound to R hand, redness) Neuro: Denies: numbness in extremities, weakness in extremities or sensory changes [facility] ED PFSH: Medical History Allergies Aortic aneurysm Arthritis COPD (chronic obstructive pulmonary disease) Heart attack History of hepatitis C HTN (hypertension) Port-A-Cath in place (10/03/19) Surgical History H/O aortic aneurysm repair H/O circumcision H/O colonoscopy 3 yrs ago H/O hernia repair S/P lobectomy of lung Family History Father Cancer Family/Other CAD (coronary artery disease) Cancer Grandfather Cancer Mother Brain aneurysm Denies family history of Anesthesia complication Bleeding disorder Social History Smoking and tobacco status: current every day smoker cigarettes Years cigarettes smoked: 50 [ Other cigarette details: Hx of 2PPD x 50 Years ] Quit status (tobacco): considering quitting Smoking risk assessment/counseling performed?: Yes Alcohol intake: current Alcohol intake frequency: 0-2 Drinks per Day Alcohol type: beer Lives independently: Yes Household members: spouse Marital status: service: Yes Current occupational status: disabled History of recent travel: No Current gender identity: Male Physical Exam Const: COMMON NORMALS: no acute distress, patient oriented x3, no limitations and alert ORIENTATION/CONSCIOUSNESS: Yes awake, Yes oriented to person, Yes oriented to place and Yes oriented to time Extremity: GENERAL: Yes normal exam except as noted OTHER: pt has a small 2mm abrasion/puncture site to R dorsal hand just proximal to 3-4 MCPs; he has about 1 inch of erythema; no warmth/drainage; redness does not affect digits at all; NV intact; he can move all his digits normally although he reports pain to 4th digit with ROM Neuro: COMMON NORMALS: patient oriented x3, moves all extremities, no focal motor deficits and no sensory deficits noted SENSORIUM/ORIENTATION: Yes alert, Yes oriented to person, Yes oriented to place and Yes oriented to time Skin: NARRATIVE SKIN EXAM: see extremity assessment; otherwise normal skin exam Course Vital Signs: Vital signs: Vital Signs Temperature 98.9 F 06/17/20 13:09 Pulse Rate 104 H 06/17/20 13:31 Respiratory Rate 16 06/17/20 13:31 Blood Pressure 105/69 06/17/20 13:31 Pulse Oximetry 97 06/17/20 13:31 MDM - Extremity (Nontraumatic) MDM Narrative: Medical decision making narrative: Patient does not have any diffuse cellulitis. No abscess formation. XR negative. Digit ROM is normal although pt does have some pain with movement of his 4th digit. He will be placed on abx and recommend close follow up as we discussed hand infections can sometimes spread quickly. He agrees to fill abx and return if area continues to worsen. Imaging Data^: XR R hand: My impression: NAD-no fx/fb noted; no significant soft tissue swelling Discharge Plan Discharge Patient Disposition: Home Clinical Impression: Cellulitis of hand, right Condition: Stable Prescriptions: New cephalexin 500 mg capsule 500 mg PO Q6H 7 Days Qty: 28 RF: 0 No Action Stiolto Respimat 2.5-2.5 mcg/actuation mist 2 puff INHALATION DAILY Qty: 4 RF: 3 oxycodone 10 mg tablet 10 mg PO TID PRNRF: 0 pantoprazole 20 mg tablet,delayed release (DR/EC) 20 mg PO DAILY RF: 0 gabapentin 300 mg capsule 300 mg PO TID RF: 0 tamsulosin 0.4 mg capsule 0.4 mg PO DAILY RF: 0 guaifenesin 400 mg tablet 400 mg PO BID PRN (Reason: unknown) RF: 0 cetirizine [Zyrtec] 10 mg tablet 10 mg PO DAILY RF: 0 diclofenac sodium 75 mg tablet,delayed release (DR/EC) 75 mg PO BID RF: 0 aspirin [Aspirin Low Dose] 81 mg tablet,delayed release (DR/EC) 81 mg PO DAILY RF: 0 omega-3 fatty acids [Fish Oil Concentrate] 1,000 mg capsule 1,000 mg PO DAILY RF: 0 diphenhydramine HCl [Benadryl Allergy] 25 mg tablet 25 mg PO BID PRN (Reason: unknown) RF: 0 fluticasone propionate [Flonase Allergy Relief] 50 mcg/actuation spray,suspension 1 spray INTRANASAL BID 90 Days Qty: 18.2 RF: 3 Asmanex Twisthaler 110 mcg/ actuation (30) aerosol powdr breath activated 2 inh INHALATION DAILY 90 Days Qty: 3 RF: 3 albuterol sulfate 2.5 mg /3 mL (0.083 %) Solution For Nebulization 2.5 mg INHALATION Q6H PRN (Reason: Shortness Of Breath) RF: 0 albuterol sulfate [ProAir HFA] 90 mcg/actuation Hfa Aerosol Inhaler 2 puff INHALATION QID PRN (Reason: Shortness Of Breath) RF: 0 cholecalciferol (vitamin D3) [Vitamin D3] 50 mcg (2,000 unit) Tablet 4,000 unit PO DAILY RF: 0 dexamethasone 4 mg tablet 4 mg PO QID Qty: 90 RF: 0 amlodipine 5 mg tablet 5 mg PO DAILY Qty: 30 RF: 0 lisinopril 10 mg tablet 10 mg PO DAILY Qty: 30 RF: 0 Discharge Orders: Discharge ED (Routine); Ordered 06/17/20 Ordered By: Fadia Chase Referrals: Rico Winters DO [Primary Care Provider] - Patient Instructions: Cellulitis (ED) Activity Restrictions/Additional Instructions: Begin your antibiotics immediately. [facility] if hand continues to worsen despite antibiotic therapy. You may return to the emergency department at anytime for worsening redness, pain, inability to move your fingers, or any other concerns you may have. Coding Level of Care Code ED Brush Clearer Surveying for Errolg Fwd Exam Expanded Problem Focused
[2020-06-17] MEDS: ceFAZolin 1,000 mg SDV 500 MG IM (14:35)
== END 2020-06-17 14:43 | disposition home or self-care (01) ==
PROVIDERS: Emergency Provider Physician Assistant; PCP Emergency Medicine Emergency Medical Services
DX: L03.113 Cellulitis of right upper limb (principal); Z79.82 Long term (current) use of aspirin; J44.9 Chronic obstructive pulmonary disease, unspecified; Z86.19 Personal history of other infectious and parasitic diseases; I10 Essential (primary) hypertension; F17.210 Nicotine dependence, cigarettes, uncomplicated
CPT/HCPCS: 73130; 96372; 99283; J0690

== ENCOUNTER 2020-06-18 05:58 | Outpatient (RCR) | payer OTHER, MEDICARE, SELFPAY ==
[2020-06-18 12:32] LABS: Basophils % 0.3 %; Eosinophils % 0.5 %; Hematocrit 36.1 % (42.0-52.0); Hemoglobin 11.9 g/dL (11.7-16.6); Lymphocytes # 0.9 10^3/uL (0.8-4.8); Lymphocytes % 23.9 %; Mean Corpuscular Hemoglobin 31.7 pg (28.0-34.0); Mean Corpuscular Volume 96.3 fL (80-94); Mean Platelet Volume 9.2 fL (7.4-10.4); Monocytes # 0.3 10^3/uL (0.2-0.9); Monocytes % 6.9 %; Neutrophils # 2.48 10^3/uL (1.8-7.7); Neutrophils % 68.1 %; Nucleated Red Blood Cells % 0 %; Platelet Count 120 10^3/cmm (130-400); Red Blood Count 3.75 10^6/uL (4.1-5.3); White Blood Count 3.6 10^3/uL (4.0-10.0)
--- NOTE | 2020-06-18 14:18 | ONCRAD TMN_ITS ---
SRS Radiation Oncology Treatment Management Note Patient Name: Satish Fry Date of : 1955 Date of Service: 06/18/2020 Attending Physician: Win Robles M.D. 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 He completed concurrent radiotherapy in November 2019 (60 Gy in 30 fractions) and 4 cycles of carboplatin and Abraxane (October 09, 2019 through November 12, 2019) and currently continues maintenance Imfinzi (cycle 7, Day 1 was administered on May 07, 2020). An MRI ordered on May 19, 2020 identified a 2.8 cm x 2.9 cm left parietal mass, a 1.9 cm x 1.6 cm right parietal lobe lesion, and an 8 mm right posterior temporal lobe. The patient has received 30 Gy of a prescribed 30 Gy with an intensity modulated radiotherapy plan delivered utilizing stereotactic radiosurgery to the right parietal lobe lesion. Upon review of systems, he denied any neurological complaints. On physical examination, the patient weighed 196 lbs. His temperature was 98.3 ???F with a blood pressure of 134/77 mmHg. His pulse was 81 bpm and his respiratory rate was 20. There were no neurological deficits. SRS to the right parietal lobe lesion was completed today. Signed by: Dr. Win Robles 06/18/2020 2:16:24 PM
[2020-06-18 15:49] LABS: Alanine Aminotransferase 17 U/L (0-41); Albumin Level 3.4 g/dL (3.5-5.2); Alkaline Phosphatase 66 IU/L (40-130); Anion Gap 15.1 (5-19); Aspartate Amino Transferase 18 U/L (0-40); Blood Urea Nitrogen 7 mg/dL (8-23); Calcium 8.4 mg/dL (8.5-10.5); Carbon Dioxide 25 mmol/L (22-29); Chloride 99 mmol/L (98-107); Glomerular Filtration Rate 96.7 mL/min (90-130); Glucose 136 mg/dL (65-115); Magnesium 1.8 mg/dL (1.7-2.3); Osmolality Calculated 280 mOsm/kg (285-295); Potassium 4.1 mmol/L (3.5-5.1); Sodium 135 mmol/L (136-145); Thyroid Stimulating Hormone 0.75 uIU/mL (0.27-4.20); Total Bilirubin 0.4 mg/dL (0.15-1.2); Total Protein 6.4 g/dL (6.6-8.7)
--- NOTE | 2020-07-01 11:42 | ONC FU_ITS ---
[facility] Patient Note Patient: Satish Fry Unit #: [id number]: 1955 Dictated By: Santino ChristensenDate of Visit: June 18, 2020 Onc MED Follow-Up/Prog Note Chief Complaint: Lung cancer. History of Present Illness: Mr Fry is a 64 year-old man with non-small cell lung cancer involving the perihilar region of the right lung, stage IIB (T2a, N1, M0). He has a prior history of non-small cell carcinoma of the left lung. On 09/04/2012 he had undergone left upper lobectomy with mediastinal lymphadenectomy for grade 3/4 adenocarcinoma, stage IB (T2a, N0, M0). The primary tumor measured 3.1 x 3.0 x 2.6 cm. There was no involvement in a total of [address] Grissom had seen him for medical oncology consultation on 09/28/2012. He received no further treatment, as there appeared to be no indication for postoperative chemotherapy or radiation. On 07/20/2019 he had presented to the emergency room with chest pain and shortness of breath. His CT pulmonary angiogram showed no evidence of pulmonary embolism. However, he was noted to have a 3.3 x 3.8 cm right hilar mass encasing the central right bronchopulmonary structures. There was invasion into the superior right pulmonary vein. There was additional subcarinal lymph node measuring 1.2 cm. Groundglass attenuation along the right minor fissure appeared compatible with either pneumonitis or lymphangitic spread of tumor. Staging PET/CT on 08/18/2019 showed perihilar mass in the right upper lobe measuring 2.8 cm in diameter with SUV 13.5, consistent with malignancy. A secondary right hilar lymph node measuring 1.4 x 2.5 cm with SUV 9.5, consistent with metastatic disease. The subcarinal lymph node did not demonstrate significant FDG activity and other mediastinal lymph nodes appeared radiographically benign and FDG negative. On 08/22/2019 he underwent bronchoscopy/EBUS with transbronchial needle aspiration biopsy of station 7 and station 10R lymph nodes. There were no endobronchial lesions identified. Pathology on the station 7 lymph node showed benign reactive lymph node with no evidence of dysplastic or neoplastic process. The 10R lymph node showed metastatic non-small cell carcinoma favoring squamous cell carcinoma. As his disease was deemed inoperable, he was recommended to undergo chemoradiation. He began radiation concurrently with weekly carboplatin/paclitaxel chemotherapy on 10/09/2019. His initial chemotherapy was complicated by neutropenia and by steroid intolerance, and with his further chemotherapy Abraxane was substituted for paclitaxel. He completed radiation on 11/20/2019 to a total dose of 6000 cGy. He received a total of 4 weekly chemotherapy infusions. His restaging chest CT on 12/24/2019 showed significant decrease in the right hilar mass, which at that point was hardly discernible. Subcarinal lymphadenopathy appeared unchanged. With that response, he then began maintenance immunotherapy with durvalumab. His other medical illnesses include hypertension, dyslipidemia, and coronary artery disease with previous myocardial infarction. He has significant underlying COPD. 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 He also has degenerative arthritis and posttraumatic stress disorder with anxiety/depression. He has a history of smoking 2 packs of cigarettes daily for 50 years. INTERIM HISTORY: He began cycle 1 of durvalumab on 01/16/2020. He tolerated it without adverse effects, and he then continued treatment at 2-week intervals. CT pulmonary angiogram on 03/12/2020 showed no evidence of pulmonary embolus. There was stable bronchovascular thickening along the right hilum and there was stable subcarinal lymphadenopathy measuring 1.6 cm. There was no evidence of disease progression. He continued his maintenance immunotherapy. He received cycle 7 on 05/07/2020. Mr. Fry is here today for follow-up. He is due for cycle 10 Imfinzi. Mr. Fry was in the emergency room at [facility] on May 15, 2020 with nausea vomiting diarrhea. He also had poor vision in his left eye. He had actually had cataract surgery the day prior to the ER visit and had nausea vomiting since the surgery. The left eye poor vision and did not improve after the cataract surgery was his concern during the ER visit. He did have a CT of the head without contrast on 05/15/2020 during the ER visit. Reported no evidence of intracranial hemorrhage but there were bilateral well-circumscribed parietal intraparenchymal lesions measuring 2.9 x 2.3 on the left and 2.1 x 1.9 cm on the right. Moderate surrounding edema with both lesions. Mild mass-effect on the right parietal horn. Mass-effect on the left occipital horn and left atrium. No significant midline shift. No hydrocephalus. No extra-axial fluid collections. He presented for followup MRI of the head with contrast on May 19, 2020. The impression was peripheral enhancing cavitary bilateral parietal lesion similar to appearance and regard to the recent CT. Peripheral restriction diffusion with T2 hypointense rim. Differential considerations include intracranial abscess versus metastasis. Recommend correlation for infectious symptoms. There was no hydrocephalus or midline shift. Left parotid lesion with mild mass-effect on the left temporal horn. Additional small peripheral enhancing lesion along the posterior perihippocampal gyrus adjacent to the temporal horn measuring 7.2 mm. Mild small vessel changes with moderate parenchymal volume loss. Mr. Fry was referred to Dr. Win Robles in ration oncology at [facility] and was seen there on 05/21/2020 for consideration of palliative cranial radiotherapy. Dr. Robles did recommend ultra hypofractionated course of radiotherapy. He did have SRS to the right posterior frontal lobe lesion on 05/26/2020 to a total of 24 Voss. He then scheduled to begin fractionated stereotactic radiosurgery to the left parietal lobe mass. He had SRS from June 09, 2020 through June 18, 2020. His total dosing was 30 Voss delivered in 5 fractions encompassing 10 elapsed days. He has tolerated the radiation well. He is here today to resume his durvalumab. However he has had significant arthritis pain and is currently taking antibiotics per Dr. Gonzalez for upper respiratory infection. He has not had any recent fever or chills but has been having a productive cough of thick yellow-greenish sputum and audible wheezing. He states that is better and the sputum is clearing up . His appetite kind of comes and goes but is okay for the most part . He denies any hemoptysis. He is having shortness of breath due to the upper respiratory infection but states is really no worse than what is normal for him. He denies any chest pain or palpitations. He has had no nausea or vomiting. He states he just been have a lot of arthritis pain in his hands and knees. He states it is worse than normal for him. He is utilizing oxycodone 10 mg 1 or 2 tablets every 6 hours as needed for pain. He states he is actually been taking them due to the pain. He does get adequate relief with the oxycodone. He states his bowels are moving normal for him. He states occasionally with the pain medicine they are little sluggish but he can control that with stool softeners and as needed laxatives. His ECOG is 1 today. Past Medical History: Abdominal aortic aneurysm Anxiety Chronic obstructive pulmonary disease Coronary artery disease Degenerative arthritis Depression Dyslipidemia History of treated hepatitis C Hypertension Post traumatic stress disorder Past Surgical History: Cataracts - left eye Repair of abdominal aortic aneurysm Umbilical hernia repair Left upper lobectomy in 2012 Endograft repair of abdominal aortic aneurysm in 2010 Allergies: PENICILLIN and Statins. Medications: Albuterol Sulfate 2.5 mg (of 2.5 mg/0.5mL) Nebulization solution Inhalation q 6 hours PRN amLODIPine Besylate 1 Tablet (of 5 mg) Oral daily Asmanex HFA 2 Inhalation Aerosol Inhalation daily Aspirin 1 Tablet (of 81 mg) Tablet, enteric coated Oral daily Benadryl Allergy 1 Tablet (of 25 mg) Tablet Oral daily PRN Cetirizine HCl 1 Tablet (of 10 mg) Oral daily Dexamethasone 1 Tablet (of 4 mg) Oral b.i.d. Diclofenac 1 Capsule Oral daily PRN Fish Oil 1 Capsule Oral daily Fluticasone Propionate 1 [place](s) (of 50 mcg/act) Suspension Nasal b.i.d. Gabapentin 1 (300 mg) Capsule Oral t.i.d. guaiFENesin 1 Tablet (of 400 mg) Oral b.i.d. PRN Lisinopril 1 Tablet (of 10 mg) Oral daily oxyCODONE HCl 1 Tablet (of 10 mg) Oral t.i.d. PRN Pantoprazole Sodium 1 Tablet (of 40 mg) Tablet, enteric coated Oral daily ProAir HFA 2 Puff(s) (of 108 (90 base) mcg/act) Aerosol, solution Inhalation four times a day PRN Stiolto Respimat 2 Puff(s) (of 2.5-2.5 mcg/act) Aerosol, solution Inhalation daily Tamsulosin HCl 1 Capsule (of 0.4 mg) Oral daily Vitamin D 2 Capsule Oral daily Family History: Mr. Fry's mother at age 83: Brain aneurysm. Mr. Nicoles father at age 64: prostate cancer. His paternal grandfather is : pancreatic cancer. Mr. Fry has 1 brother who is : liver cancer. He has 1 paternal aunt who is : lung cancer. He has 1 maternal uncle who is : lymphoma. Father of prostate cancer at age 64. Mother with a cerebral aneurysm at age 83. A brother with liver cancer at age 56. His paternal grandfather had pancreatic cancer, a maternal uncle had lymphoma, and a paternal aunt had lung cancer. Social History: Mr. Fry is and he is an on disability. He is a daily smoker who has smoked 0.5 packs/day for 51 years. He drinks occasionally. He consumes 2 drinks/day 7 days/week. He has indicated exposure to the following products: cigarettes. Mr. Fry reports the following support systems: lives with spouse, significant other, family, or friends, lives in own house, supportive family/friends willing to assist with needs, and adequate transportation available for expected visits. His diet consists of regular meals. He indicates his activity level as: regular exercise. Review Of Symptoms: <See Above> Vital Signs: Performed on June 18, 2020 13:58 Height - 68.50 in Weight - 194.6 lbs Temperature - 97.7 F Pulse - 100 Respiration - 19 BP - 118/73 mm(hg) O2 Sat - 97 % Pain - 6 Performed on June 18, 2020 13:58 BMI - 29.159 kg/m2 (HIGH) Performed on June 18, 2020 13:28 Height - 68.50 in Weight - 194.6 lbs (LOW) BSA - 2.03 sq.m BMI - 29.16 Temperature - 97.7 F (LOW) Pulse - 103 /min (HIGH) Respiration - 19 /min BP - 118/73 mm(hg) O2 Sat - 97 % Pain - 5,1 - No physically strenuous activity, but ambulatory and able to carry out light or sedentary work (e.g. office work, light house work). (ECOG) Physical Examination: Constitutional Alert, oriented, no acute distress. Skin pink, warm and dry. Head Normocephalic; atraumatic. Eyes Conjunctivae and sclerae are clear and without icterus. Pupils are reactive and equal. Neck Supple without masses or thyromegaly. No jugular venous distension. Hematologic/Lymphatic No petechiae or purpura. No tender or palpable lymph nodes in the cervical or supraclavicular areas. Respiratory Lungs are noted to have wheezing bilaterally-improve with cough. No congestion appreciated. Cardiovascular Regular rate and rhythm of heart without murmurs,clicks, gallops or rubs. Abdomen Non-tender, non-distended, no masses or ascites. Good bowel sounds noted in all quads. No guarding or rebound tenderness. No pulsatile masses. Back/Spine Non-tender to palpation. Extremities No visible deformities, no cyanosis, clubbing or edema. Musculoskeletal No tenderness or swelling, normal range of motion without obvious weakness. Integumentary No rashes or lesions. Neurologic No sensory or motor deficits, normal cerebellar function, normal gait. Psychiatric Alert and oriented times three. Coherent speech. Verbalizes understanding of our discussions today. Laboratory:Test performed on June 18, 2020 11:55 Magnesium 1.8 mg/dL Sodium 135 mmol/L TSH 0.75 uIU/mL Potassium 4.1 mmol/L Chloride 99 mmol/L CO2 25 mmol/L Anion Gap 15.1 BUN 7 mg/dL Creatinine 0.8 mg/dL Cr Clearance (Est) 118.8800 mL/min eGFR 96.7 mL/min Glucose 136 mg/dL Osmolality - Calculated 280 mOsm/kg Calcium 8.4 mg/dL Protein, Total 6.4 g/dL Albumin 3.4 g/dL Globulin 3.0 g/dL Bilirubin, Total 0.4 mg/dL ALT (SGPT) 17 U/L AST (SGOT) 18 U/L Alkaline Phosphatase 66 IU/L WBC 3.6 10 3/uL RBC 3.75 10 6/uL HGB 11.9 g/dL HCT 36.1 % MCV 96.3 fL MCH 31.7 pg MCHC 33.0 g/dL RDW 13.0 % Platelet Count 120 10 3/cmm MPV 9.2 fL Neutrophils 2.48 10 3/uL Lymphocytes 0.9 10 3/uL Monocytes 0.3 10 3/uL Eosinophils 0.0 10 3/uL Basophils 0.0 10 3/uL Neutrophil % 68.1 % Lymphocyte % 23.9 % Monocyte % 6.9 % Eosinophil % 0.5 % Basophils % 0.3 % NRBC % 0 % Impression: 1. Non-small cell carcinoma involving her right hilar mass. Pathology favored squamous cell carcinoma. It appeared to be a new primary malignancy. By PET/CT there appeared to be additional right hilar adenopathy so that by clinical evaluation his disease appeared to be stage IIB (T2a, N1, M0). 2. He has a history of grade 3/4 adenocarcinoma involving the upper lobe of the left lung, stage IB (T2a, N0, M0), for which he underwent thoracotomy with left upper lobectomy and mediastinal lymphadenectomy on 09/04/2012. 3. COPD. 4. Hypertension. 5. Dyslipidemia. 6. Coronary artery disease with previous myocardial infarction. 7. Degenerative arthritis. 8. History of treated hepatitis C. 9. History of abdominal aortic aneurysm for which he underwent endograft repair in 2010. 10. Posttraumatic stress disorder with anxiety/depression. Plan/Problems Addressed at this Visit: 1. Non-small cell carcinoma involving the perihilar region of the right lung. Pathology favored squamous cell carcinoma. By PET/CT there appeared to be additional right hilar adenopathy so that by clinical evaluation his disease appeared to be stage IIB (T2a, N1, M0). His disease was deemed inoperable. As such, he was treated with radiation concurrently with weekly carboplatin/paclitaxel chemotherapy. His chemotherapy was complicated by neutropenia and Abraxane was substituted for the paclitaxel due to steroid intolerance. He completed radiation on 11/20/2019 to a total dose of 6000 cGy. He received a total of 4 weekly chemotherapy infusions. He had a very good response by follow-up chest CT. On 01/16/2020 he began maintenance immunotherapy with durvalumab. He tolerated the initial infusion well, and he then continued treatment at 2-week intervals. He received cycle 6 of durvalumab on 04/16/2020. He continues to have somewhat marginal performance status, but he has been tolerating the immunotherapy with no significant adverse effects and thus far with no evidence of progression of the lung cancer. He has now completed 7 cycles of durvalumab with his last treatment on May 07, 2020. He has been diagnosed with brain metastasis as of MRI on 05/19/2020. There were bilateral lesions. He completed SRS to the right posterior frontal lobe lesion to a total of 24 Voss on 05/26/2020. He completed fractionated stereotactic radiation to the left parietal lobe on. June 18, 2020. His total radiation dose was 30 Gy. A. We will plan to hold his planned durvalumab today as He just completed radiation therapy today and is having a significant arthritis flare. He also has upper respiratory infection and is being treated by Dr. Winters. B. Today's labs reviewed in detail discussed with Mr. Fry and a copy was given to him. WBC 3.6, hemoglobin 11.9, platelets 120,000, ANC is 2480. C. We will plan to have him return in 4 weeks with CBC CMP magnesium and TSH. We will plan to resume his durvalumab at that time if he is feeling better. D. Mr. Fry was instructed to contact us in the interim should questions or problems arise. Signed By: Santino Christensen-, [facility] Gino Grissom MD <<Signature on File>>
== END 2020-07-07 23:59 | disposition home or self-care (01) ==
LOC: ONCMED 05:58
PROVIDERS: Absent Provider Radiology Radiation Oncology; PCP Emergency Medicine Emergency Medical Services; Visit Provider Nurse Practitioner
DX: Z51.0 Encounter for antineoplastic radiation therapy (principal); C34.12 Malignant neoplasm of upper lobe, left bronchus or lung; C34.01 Malignant neoplasm of right main bronchus; C79.31 Secondary malignant neoplasm of brain; I71.4 Abdominal aortic aneurysm, without rupture; F41.9 Anxiety disorder, unspecified; J44.9 Chronic obstructive pulmonary disease, unspecified; I25.10 Atherosclerotic heart disease of native coronary artery without angina pectoris; F32.9 Major depressive disorder, single episode, unspecified; E78.5 Hyperlipidemia, unspecified; I10 Essential (primary) hypertension; F43.10 Post-traumatic stress disorder, unspecified; E03.9 Hypothyroidism, unspecified; Z86.19 Personal history of other infectious and parasitic diseases; Z79.899 Other long term (current) drug therapy
CPT/HCPCS: 36591; 77336; 77373; 80053; 83735; 84443; 85025; 99214

== ENCOUNTER 2020-07-17 05:41 | Outpatient (RCR) | payer OTHER, MEDICARE, SELFPAY ==
[2020-07-16] MEDS: alteplase 1 mg/mL SDV 2 mL 2 MG IV (10:13)
[2020-07-16 11:11] LABS: Basophils # 0.1 10^3/uL (0.0-0.1); Basophils % 1.1 %; Eosinophils # 0.9 10^3/uL (0.0-0.8); Eosinophils % 12.5 %; Hematocrit 39.5 % (42.0-52.0); Hemoglobin 12.6 g/dL (11.7-16.6); Lymphocytes # 1.4 10^3/uL (0.8-4.8); Lymphocytes % 19.4 %; Mean Corpuscular HGB Conc 31.9 g/dL (30.0-36.0); Mean Corpuscular Hemoglobin 30.6 pg (28.0-34.0); Mean Corpuscular Volume 95.9 fL (80-94); Mean Platelet Volume 9.3 fL (7.4-10.4); Monocytes # 0.7 10^3/uL (0.2-0.9); Monocytes % 9.4 %; Neutrophils # 4.07 10^3/uL (1.8-7.7); Neutrophils % 57.5 %; Nucleated Red Blood Cells % 0 %; Platelet Count 196 10^3/cmm (130-400); Red Blood Count 4.12 10^6/uL (4.1-5.3); White Blood Count 7.1 10^3/uL (4.0-10.0)
[2020-07-16 11:49] LABS: Alanine Aminotransferase 6 U/L (0-41); Albumin Level 3.9 g/dL (3.5-5.2); Alkaline Phosphatase 67 IU/L (40-130); Anion Gap 12.3 (5-19); Aspartate Amino Transferase 13 U/L (0-40); Blood Urea Nitrogen 7 mg/dL (8-23); Calcium 8.8 mg/dL (8.5-10.5); Carbon Dioxide 29 mmol/L (22-29); Chloride 104 mmol/L (98-107); Globulin 3.4 g/dL (1.3-4.6); Glomerular Filtration Rate 96.7 mL/min (90-130); Glucose 113 mg/dL (65-115); Osmolality Calculated 291 mOsm/kg (285-295); Potassium 4.3 mmol/L (3.5-5.1); Sodium 141 mmol/L (136-145); Thyroid Stimulating Hormone 0.61 uIU/mL (0.27-4.20); Total Bilirubin 0.4 mg/dL (0.15-1.2); Total Protein 7.3 g/dL (6.6-8.7)
--- NOTE | 2020-07-17 10:02 | ONC FU_ITS ---
Dr. Grissom Patient Follow-Up Note Patient: Satish Fry Unit #: [id number]: [id number] Dicatated By: Gino Grissom M.D.Date of Visit:Jul 17, 2020 Onc Med Follow-up/Prog Note Chief Complaint: Lung cancer. History of Present Illness: This is a 64 year-old man with non-small cell lung cancer involving the perihilar region of the right lung, stage IIB (T2a, N1, M0). He has a prior history of non-small cell carcinoma of the left lung. On 09/04/2012 he had undergone left upper lobectomy with mediastinal lymphadenectomy for grade 3/4 adenocarcinoma, stage IB (T2a, N0, M0). The primary tumor measured 3.1 x 3.0 x 2.6 cm. There was no involvement in a total of 14 lymph nodes. I had seen him for medical oncology consultation on 09/28/2012. He received no further treatment, as there appeared to be no indication for postoperative chemotherapy or radiation. On 07/20/2019 he had presented to the emergency room with chest pain and shortness of breath. His CT pulmonary angiogram showed no evidence of pulmonary embolism. However, he was noted to have a 3.3 x 3.8 cm right hilar mass encasing the central right bronchopulmonary structures. There was invasion into the superior right pulmonary vein. There was additional subcarinal lymph node measuring 1.2 cm. Groundglass attenuation along the right minor fissure appeared compatible with either pneumonitis or lymphangitic spread of tumor. Staging PET/CT on 08/18/2019 showed perihilar mass in the right upper lobe measuring 2.8 cm in diameter with SUV 13.5, consistent with malignancy. A secondary right hilar lymph node measuring 1.4 x 2.5 cm with SUV 9.5, consistent with metastatic disease. The subcarinal lymph node did not demonstrate significant FDG activity and other mediastinal lymph nodes appeared radiographically benign and FDG negative. On 08/22/2019 he underwent bronchoscopy/EBUS with transbronchial needle aspiration biopsy of station 7 and station 10R lymph nodes. There were no endobronchial lesions identified. Pathology on the station 7 lymph node showed benign reactive lymph node with no evidence of dysplastic or neoplastic process. The 10R lymph node showed metastatic non-small cell carcinoma favoring squamous cell carcinoma. As his disease was deemed inoperable, he was recommended to undergo chemoradiation. He began radiation concurrently with weekly carboplatin/paclitaxel chemotherapy on 10/09/2019. His initial chemotherapy was complicated by neutropenia and by steroid intolerance, and with his further chemotherapy Abraxane was substituted for paclitaxel. He completed radiation on 11/20/2019 to a total dose of 6000 cGy. He received a total of 4 weekly chemotherapy infusions. His restaging chest CT on 12/24/2019 showed significant decrease in the right hilar mass, which at that point was hardly discernible. Subcarinal lymphadenopathy appeared unchanged. With that response, he then began maintenance immunotherapy with durvalumab. His other medical illnesses include hypertension, dyslipidemia, and coronary artery disease with previous myocardial infarction. He has significant underlying COPD. 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 He also has degenerative arthritis and posttraumatic stress disorder with anxiety/depression. He has a history of smoking 2 packs of cigarettes daily for 50 years. INTERIM HISTORY: He began cycle 1 of durvalumab on 01/16/2020. He tolerated it without adverse effects, and he then continued treatment at 2-week intervals. CT pulmonary angiogram on 03/12/2020 showed no evidence of pulmonary embolus. There was stable bronchovascular thickening along the right hilum and there was stable subcarinal lymphadenopathy measuring 1.6 cm. There was no evidence of disease progression. He continued his maintenance immunotherapy. He received cycle 7 on 05/07/2020. On 05/16/2019 when he presented to the emergency room with nausea/vomiting and visual changes. His head CT showed well circumscribed low-attenuation bilateral parietal lesions with surrounding edema, consistent with metastatic disease. The largest was on the left measuring 2.9 x 2.3 cm. The right parietal lesion measured 1.9 x 2.0 cm. Further evaluation with MRI on 05/15/2020 showed peripheral enhancing bilateral parietal lesions on the left measuring 2.8 x 2.9 cm and on the right measuring 1.9 x 1.6 cm. An additional 8 mm lesion was noted in the right posterior temporal lobe. The appearance was consistent with metastatic disease. He was deemed unsuitable for surgical resection. He was then seen by Dr. Robles for palliative radiation. He underwent SRS to all 3 lesions. The right posterior temporal lesion was treated on 05/26/2020 to a total dose of 2400 cGy. Treatment to the left parietal lesion was completed on 06/06/2020 to a dose of 3000 cGy administered in 10 fractions. Treatment to the right parietal lesion was completed on 06/18/2020 to a total dose of 3000 cGy administered in 10 fractions. He is seen for a follow-up visit. His immunotherapy has remained on hold since the discovery of the metastatic brain lesions. He continues to complain that he is tired a lot. He is still able to do light work, though does take him longer to get it done. ECOG score is 1. Appetite is variable. His weight is down a few pounds. He does not have fever or night sweats. He is short of breath at times, particularly and hot weather. He has some cough, attributable to allergies. He is still smoking a little bit. He does not complain of chest pain. He has no GI or complaints. He has generalized joint pain, but that is unchanged. He does not complain of headache or dizziness, and he has no focal neurologic symptoms. He is having significant anxiety issues, as his is now undergoing evaluation for breast mass. Medications: Albuterol Sulfate 2.5 mg (of 2.5 mg/0.5mL) Nebulization solution Inhalation q 6 hours PRN, amLODIPine Besylate 1 Tablet (of 5 mg) Oral daily, Asmanex HFA 2 Inhalation Aerosol Inhalation daily, Aspirin 1 Tablet (of 81 mg) Tablet, enteric coated Oral daily, Benadryl Allergy 1 Tablet (of 25 mg) Tablet Oral daily PRN, Cetirizine HCl 1 Tablet (of 10 mg) Oral daily, Diclofenac 1 Capsule Oral daily PRN, Fish Oil 1 Capsule Oral daily, Fluticasone Propionate 1 [place](s) (of 50 mcg/act) Suspension Nasal b.i.d., Gabapentin 1 (300 mg) Capsule Oral t.i.d., guaiFENesin 1 Tablet (of 400 mg) Oral b.i.d. PRN, metFORMIN HCl Tablet Oral, oxyCODONE HCl 1 Tablet (of 10 mg) Oral t.i.d. PRN, Pantoprazole Sodium 1 Tablet (of 40 mg) Tablet, enteric coated Oral daily, ProAir HFA 2 Puff(s) (of 108 (90 base) mcg/act) Aerosol, solution Inhalation four times a day PRN, Stiolto Respimat 2 Puff(s) (of 2.5-2.5 mcg/act) Aerosol, solution Inhalation daily, Tamsulosin HCl 1 Capsule (of 0.4 mg) Oral daily, Vitamin D 2 Capsule Oral daily Allergies: PENICILLIN and Statins. Vital Signs: Performed on Jul 17, 2020 08:01 Height - 68.50 in Weight - 196.6 lbs (HIGH) BSA - 2.04 sq.m BMI - 29.46 Temperature - 99.4 F (HIGH) Pulse - 99 /min Respiration - 18 /min BP - 151/83 mm(hg) (HIGH) O2 Sat - 92 % (LOW) Pain - 4 Fatigue - 5 Physical Examination: Constitutional - He appears somewhat weak generally, Eyes - Sclerae nonicteric. Conjunctivae clear, ENMT - No lesions noted in the oral cavity, Hematologic/Lymphatic - No cervical, clavicular, or axillary adenopathy, Respiratory - Lungs show diminished air movement with coarse breath sounds on inspiration and expiration bilaterally, Cardiovascular - Heart rhythm is regular. There is no murmur, gallop, or rub noted, Abdomen - Soft. Liver and spleen are not enlarged. There is no abdominal mass or ascites noted and there is no inguinal adenopathy, Extremities - No edema, Neurologic - No focal neurologic deficits noted. Lab/Imaging: Test performed on June 18, 2020 11:55 Magnesium 1.8 mg/dL Sodium 135 mmol/L TSH 0.75 uIU/mL Potassium 4.1 mmol/L Chloride 99 mmol/L CO2 25 mmol/L Anion Gap 15.1 BUN 7 mg/dL Creatinine 0.8 mg/dL Cr Clearance (Est) 118.8800 mL/min eGFR 96.7 mL/min Glucose 136 mg/dL Osmolality - Calculated 280 mOsm/kg Calcium 8.4 mg/dL Protein, Total 6.4 g/dL Albumin 3.4 g/dL Globulin 3.0 g/dL Bilirubin, Total 0.4 mg/dL ALT (SGPT) 17 U/L AST (SGOT) 18 U/L Alkaline Phosphatase 66 IU/L WBC 3.6 10 3/uL RBC 3.75 10 6/uL HGB 11.9 g/dL HCT 36.1 % MCV 96.3 fL MCH 31.7 pg MCHC 33.0 g/dL RDW 13.0 % Platelet Count 120 10 3/cmm MPV 9.2 fL Neutrophils 2.48 10 3/uL Lymphocytes 0.9 10 3/uL Monocytes 0.3 10 3/uL Eosinophils 0.0 10 3/uL Basophils 0.0 10 3/uL Neutrophil % 68.1 % Lymphocyte % 23.9 % Monocyte % 6.9 % Eosinophil % 0.5 % Basophils % 0.3 % NRBC % 0 % Problem List: 1. Non-small cell carcinoma involving her right hilar mass. Pathology favored squamous cell carcinoma. It appeared to be a new primary malignancy. By PET/CT there appeared to be additional right hilar adenopathy so that by clinical evaluation his disease appeared to be stage IIB (T2a, N1, M0). He had subsequent progression to stage IV with development of multiple metastatic lesions in the brain. 2. He has a history of grade 3/4 adenocarcinoma involving the upper lobe of the left lung, stage IB (T2a, N0, M0), for which he underwent thoracotomy with left upper lobectomy and mediastinal lymphadenectomy on 09/04/2012. 3. COPD. 4. Hypertension. 5. Dyslipidemia. 6. Coronary artery disease with previous myocardial infarction. 7. Degenerative arthritis. 8. History of treated hepatitis C. 9. History of abdominal aortic aneurysm for which he underwent endograft repair in 2010. 10. Posttraumatic stress disorder with anxiety/depression. Problems Addressed with this Encounter and Plan: Patient with non-small cell carcinoma involving the perihilar region of the right lung. Pathology favored squamous cell carcinoma. By PET/CT there appeared to be additional right hilar adenopathy so that by clinical evaluation his disease appeared to be stage IIB (T2a, N1, M0). His disease was deemed inoperable. As such, he was treated with radiation concurrently with weekly carboplatin/paclitaxel chemotherapy. His chemotherapy was complicated by neutropenia and Abraxane was substituted for the paclitaxel due to steroid intolerance. He completed radiation on 11/20/2019 to a total dose of 6000 cGy. He received a total of 4 weekly chemotherapy infusions. He had a very good response by follow-up chest CT. On 01/16/2020 he began maintenance immunotherapy with durvalumab. He tolerated the initial infusion well, and he then continued treatment at 2-week intervals. He received cycle 7 of durvalumab on 05/07/2020. His further treatment was put on hold, as he subsequently was found to have progression to stage IV disease with brain MRI on 05/19/2020 showing right and left parietal lobe and right posterior temporal lobe metastatic lesions. He was deemed unsuitable for surgical resection. He has undergone SRS to all 3 sites of involvement. At this point he is still fatigued, but his clinical status otherwise appears stable. He will need restaging with CT scans of the chest, abdomen, and pelvis and repeat brain MRI prior to determining any further treatment. Signed By: Gino Grissom M.D. <<Signature on File>>
== END 2020-08-06 23:59 | disposition home or self-care (01) ==
LOC: ONCMED 05:41
PROVIDERS: Absent Provider Radiology Radiation Oncology; PCP Emergency Medicine Emergency Medical Services; Visit Provider Internal Medicine Medical Oncology
DX: C34.12 Malignant neoplasm of upper lobe, left bronchus or lung (principal); C79.31 Secondary malignant neoplasm of brain; J44.9 Chronic obstructive pulmonary disease, unspecified; I10 Essential (primary) hypertension; E78.5 Hyperlipidemia, unspecified; I25.10 Atherosclerotic heart disease of native coronary artery without angina pectoris; I25.2 Old myocardial infarction; M19.90 Unspecified osteoarthritis, unspecified site; Z86.19 Personal history of other infectious and parasitic diseases; Z95.1 Presence of aortocoronary bypass graft; F43.10 Post-traumatic stress disorder, unspecified; F41.9 Anxiety disorder, unspecified; F32.9 Major depressive disorder, single episode, unspecified; Z79.899 Other long term (current) drug therapy
CPT/HCPCS: 36415; 36593; 80053; 84443; 85025; 96374; 96523; 99214; J2997

== ENCOUNTER 2020-07-28 12:58 | Outpatient (CLI) | payer OTHER, SELFPAY ==
--- NOTE | 2020-07-28 | CT_ITS ---
WS: [id number] CT CHEST, ABDOMEN, AND PELVIS TECHNIQUE: Contrast-enhanced CT of the chest, abdomen, and pelvis with coronal and sagittal reformatt ed images. CLINICAL INFORMATION: LUNG CANCER COMPARISON: None. DLP: All CT scans at [facility] use at least one of these dose optimization techniques: automat ed exposure control; mA and/or kV adjustment per patient size (includes targeted exams where dose is matched to clinical indication); or iterative reconstruction. CT CHEST: Moderate chronic emphysematous changes. Stable bronchovascular thickening along the right hilum is unchanged from previous. Progressed subcar inal lymphadenopathy measuring 2.0 cm compared to 1.6 cm previous. Hazy groundglass opacities in the right upper lobe anteriorly may be infectious or inflammatory. Consolidative opacity or atelectasis i n the right lower lobe medially along the right infrahilar lung measures 1.6 cm. This may be due to t reatment-related changes but is nonspecific. Stable 6 mm noncalcified nodule at the right hemidiaphragm. Normal caliber thoracic aorta. Aortic denisa cification. Coronary calcification. CT ABDOMEN AND PELVIS: Mild diffuse fatty infiltration of the liver. Cavernous hemangioma left hepatic lobe measuring 1.0 CM stable since 2013.. Normal portal vein and splenic vein. Fatty atrophy of the pancreas. Normal GE ju nction. Normal spleen. Adrenal glands are normal. Normal bilateral renal parenchymal enhancement. No hydronephrosis. Small bilateral renal cysts. Benign calcification left kidney. Aortic endograft biili ac extension. Sigmoid diverticulosis. No evidence of acute diverticulitis. No evidence of small or large bowel obst ruction. Tiny fat-containing umbilical hernia. Gallbladder is contracted. No abdominal or pelvic lymp hadenopathy. Disc space narrowing L3-L4 L4-L5 and L5-S1. CT/CT chest abd pel w con* IMPRESSION: 1. Stable bronchovascular thickening along the right hilum. 2. Subcarinal lymph node progressed today measuring approximately 2.0 cm estefanía red to 1.6 cm previous. Recommend 3 month follow-up. 3. New focal consolidation or consolidative atelectasis in the right lower lob e medially along the infrahilum. This is new from previous. This may be due to treatment-related changes but is nonspecific. Recommend 3 month follow-up versu s PET/CT. 4. New hazy groundglass opacities in right upper lobe anteriorly likely infect ious or inflammatory. 5. No evidence of metastatic disease in the abdomen or pelvis. 6. No abdominal or pelvic lymphadenopathy. 7. Aortic endograft with biiliac extension. 8. Stable cavernous hemangioma left hepatic lobe measuring 1.0 CM.
[2020-07-28] MEDS: iohexol 300 mg/mL 50 mL Btl IV (14:42)
[2020-07-28] MEDS: iohexol 300 mg/mL 100 mL Btl IV (14:42)
== END 2020-07-28 12:59 | disposition home or self-care (01) ==
PROVIDERS: PCP Emergency Medicine Emergency Medical Services; Visit Provider Internal Medicine Medical Oncology
DX: C34.12 Malignant neoplasm of upper lobe, left bronchus or lung (principal); C34.01 Malignant neoplasm of right main bronchus; D18.09 Hemangioma of other sites
CPT/HCPCS: 71260; 74177; Q9967

== ENCOUNTER → 2020-08-19 15:09 | Outpatient (BNVA) | payer OTHER, SELFPAY | PROVIDERS: PCP Emergency Medicine Emergency Medical Services; Visit Provider Nurse Practitioner Family | DX: Z20.822 Contact with and (suspected) exposure to COVID-19 (principal) | CPT/HCPCS: 87635 ==

== ENCOUNTER 2020-08-29 10:36 | Outpatient (CLI) | payer OTHER, SELFPAY ==
--- NOTE | 2020-08-29 11:00 | MR_ITS ---
WS: [id number] MRI HEAD WITH CONTRAST TECHNIQUE: Sagittal T1, T2 axial, T2 axial FLAIR, axial susceptibility weighted imaging, axial diffus ion weighted images, and coronal T2 images were obtained. Pre and post-T1 axial and post T1 coronal i mages. ADC and FSPGR images. CLINICAL INFORMATION: FOLLOWUP BRAIN METS COMPARISON: MRI May 19, 2020 FINDINGS: No evidence of restricted diffusion to suggest acute ischemia. Mild small vessel changes. Moderate pa renchymal volume loss. Interval improvement of the previously described intracranial metastasis. Left parietal metastasis decrease in size today measuring 1.4 x 0.9 cm with improved surrounding edema. P reviously this measured 2.9 x 2.8 cm. Improved right parietal lesion which today measures 0.8 x 0.4 cm with improved surrounding edema. Previously described enhancing lesion along the posterior right perihippocampal gyrus has resolved. N o abnormal enhancement or edema in this area today. Normal optic chiasm and pituitary infundibulum. No new enhancing lesions. MR/MR head wo/w con [id number] IMPRESSION: 1. No evidence of restricted diffusion to suggest acute ischemia. 2. Interval improvement in the 2 previously described parietal lesions have de creased in size with significantly improved edema. 3. Previously described right perihippocampal gyrus enhancing lesion not visua lized today has resolved. 4. No new enhancing lesions. 5. Mild small vessel changes with moderate parenchymal volume loss.
== END 2020-08-29 10:37 | disposition home or self-care (01) ==
LOC: RADSHAW 10:37
PROVIDERS: PCP Emergency Medicine Emergency Medical Services; Visit Provider Internal Medicine Medical Oncology
DX: C34.01 Malignant neoplasm of right main bronchus (principal); C34.12 Malignant neoplasm of upper lobe, left bronchus or lung
CPT/HCPCS: 70553; A9577

== ENCOUNTER 2020-09-08 15:16 | Outpatient (CLI) | payer OTHER, SELFPAY ==
--- NOTE | 2020-09-09 07:28 | ONC FU_ITS ---
Dr. Grissom Patient Follow-Up Note Patient: Satish Fry Unit #: [id number]: 1955 Dicatated By: Gino Grissom M.D.Date of Visit:Sep 08, 2020 Onc Med Follow-up/Prog Note Chief Complaint: Lung cancer. History of Present Illness: This is a 64 year-old man with non-small cell lung cancer involving the perihilar region of the right lung, stage IIB (T2a, N1, M0) at initial diagnosis in August 2019. He had subsequent progression to stage IVB (M1c) with development of multiple brain metastases. He has a prior history of non-small cell carcinoma of the left lung. On 09/04/2012 he had undergone left upper lobectomy with mediastinal lymphadenectomy for grade 3/4 adenocarcinoma, stage IB (T2a, N0, M0). The primary tumor measured 3.1 x 3.0 x 2.6 cm. There was no involvement in a total of 14 lymph nodes. I had seen him for medical oncology consultation on 09/28/2012. He received no further treatment, as there appeared to be no indication for postoperative chemotherapy or radiation. On 07/20/2019 he had presented to the emergency room with chest pain and shortness of breath. His CT pulmonary angiogram showed no evidence of pulmonary embolism. However, he was noted to have a 3.3 x 3.8 cm right hilar mass encasing the central right bronchopulmonary structures. There was invasion into the superior right pulmonary vein. There was additional subcarinal lymph node measuring 1.2 cm. Groundglass attenuation along the right minor fissure appeared compatible with either pneumonitis or lymphangitic spread of tumor. Staging PET/CT on 08/18/2019 showed perihilar mass in the right upper lobe measuring 2.8 cm in diameter with SUV 13.5, consistent with malignancy. A secondary right hilar lymph node measuring 1.4 x 2.5 cm with SUV 9.5, consistent with metastatic disease. The subcarinal lymph node did not demonstrate significant FDG activity and other mediastinal lymph nodes appeared radiographically benign and FDG negative. On 08/22/2019 he underwent bronchoscopy/EBUS with transbronchial needle aspiration biopsy of station 7 and station 10R lymph nodes. There were no endobronchial lesions identified. Pathology on the station 7 lymph node showed benign reactive lymph node with no evidence of dysplastic or neoplastic process. The 10R lymph node showed metastatic non-small cell carcinoma favoring squamous cell carcinoma. As his disease was deemed inoperable, he was recommended to undergo chemoradiation. He began radiation concurrently with weekly carboplatin/paclitaxel chemotherapy on 10/09/2019. His initial chemotherapy was complicated by neutropenia and by steroid intolerance, and with his further chemotherapy Abraxane was substituted for paclitaxel. He completed radiation on 11/20/2019 to a total dose of 6000 cGy. He received a total of 4 weekly chemotherapy infusions. His restaging chest CT on 12/24/2019 showed significant decrease in the right hilar mass, which at that point was hardly discernible. Subcarinal lymphadenopathy appeared unchanged. With that response, he then began maintenance immunotherapy with durvalumab. His other medical illnesses include hypertension, dyslipidemia, and coronary artery disease with previous myocardial infarction. He has significant underlying COPD. 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 He also has degenerative arthritis and posttraumatic stress disorder with anxiety/depression. He has a history of smoking 2 packs of cigarettes daily for 50 years. INTERIM HISTORY: He began cycle 1 of durvalumab on 01/16/2020. He tolerated it without adverse effects, and he then continued treatment at 2-week intervals. CT pulmonary angiogram on 03/12/2020 showed no evidence of pulmonary embolus. There was stable bronchovascular thickening along the right hilum and there was stable subcarinal lymphadenopathy measuring 1.6 cm. There was no evidence of disease progression. He continued his maintenance immunotherapy. He received cycle 7 on 05/07/2020. On 05/16/2019 when he presented to the emergency room with nausea/vomiting and visual changes. His head CT showed well circumscribed low-attenuation bilateral parietal lesions with surrounding edema, consistent with metastatic disease. The largest was on the left measuring 2.9 x 2.3 cm. The right parietal lesion measured 1.9 x 2.0 cm. Further evaluation with MRI on 05/15/2020 showed peripheral enhancing bilateral parietal lesions on the left measuring 2.8 x 2.9 cm and on the right measuring 1.9 x 1.6 cm. An additional 8 mm lesion was noted in the right posterior temporal lobe. The appearance was consistent with metastatic disease. He was deemed unsuitable for surgical resection. He was then seen by Dr. Robles for palliative radiation. He underwent SRS to all 3 lesions. The right posterior temporal lesion was treated on 05/26/2020 to a total dose of 2400 cGy. Treatment to the left parietal lesion was completed on 06/06/2020 to a dose of 3000 cGy administered in 10 fractions. Treatment to the right parietal lesion was completed on 06/18/2020 to a total dose of 3000 cGy administered in [address] scans on 07/28/2020 showed stable bronchovascular thickening along the right hilum, unchanged from the prior study. There was progressed subcarinal lymphadenopathy measuring 2.0 cm compared to 1.6 cm. There were no other findings of disease progression. Hazy groundglass opacities in the right upper lobe anteriorly appear to be most consistent with infectious or inflammatory change. Consolidative opacity or atelectasis in the right lower lobe medially along the right infrahilar lung measuring 1.6 cm appeared to be most likely due to treatment related changes, but the appearance was nonspecific. A noncalcified nodule at the right hemidiaphragm measuring 6 mm appeared stable. A cavernous hemangioma involving the left hepatic lobe appeared stable measuring 1.0 cm. Repeat head MRI on 08/29/2020 showed significant decrease in size of the left parietal metastasis measuring 1.4 x 0.9 cm and in the right parietal metastasis measuring 0.8 x 0.4 cm. There was also improvement in the associated edema. The previously described right parahippocampal gyrus enhancing lesion was noted to have completely resolved. There were no new enhancing lesions identified. He is seen for a follow-up visit. He has been feeling pretty good generally, though he does feel somewhat tired and lazy. He is doing light work. ECOG score is 1. He does not have much appetite. His weight recently has been stable. He does not have fever or night sweats. He gets short of breath pretty easily, but his breathing is okay. He has no more cough than normal. He does not complain of chest pain. He has no GI or complaints. He has joint pain, which is chronic and unchanged. He is not having headache or dizziness. He has no numbness/paresthesia or other focal neurologic symptoms. Medications: Albuterol Sulfate 2.5 mg (of 2.5 mg/0.5mL) Nebulization solution Inhalation q 6 hours PRN, amLODIPine Besylate 1 Tablet (of 5 mg) Oral daily, Asmanex HFA 2 Inhalation Aerosol Inhalation daily, Aspirin 1 Tablet (of 81 mg) Tablet, enteric coated Oral daily, Benadryl Allergy 1 Tablet (of 25 mg) Tablet Oral daily PRN, Cetirizine HCl 1 Tablet (of 10 mg) Oral daily, Diclofenac 1 Capsule Oral daily PRN, Fish Oil 1 Capsule Oral daily, Fluticasone Propionate 1 [place](s) (of 50 mcg/act) Suspension Nasal b.i.d., Gabapentin 1 (300 mg) Capsule Oral t.i.d., guaiFENesin 1 Tablet (of 400 mg) Oral b.i.d. PRN, metFORMIN HCl Tablet Oral, oxyCODONE HCl 1 Tablet (of 10 mg) Oral t.i.d. PRN, Pantoprazole Sodium 1 Tablet (of 40 mg) Tablet, enteric coated Oral daily, ProAir HFA 2 Puff(s) (of 108 (90 base) mcg/act) Aerosol, solution Inhalation four times a day PRN, Stiolto Respimat 2 Puff(s) (of 2.5-2.5 mcg/act) Aerosol, solution Inhalation daily, Tamsulosin HCl 1 Capsule (of 0.4 mg) Oral daily, Vitamin D 2 Capsule Oral daily Allergies: PENICILLIN and Statins. Vital Signs: Performed on Sep 08, 2020 15:42 Height - 68.50 in Weight - 194.2 lbs (LOW) BSA - 2.03 sq.m BMI - 29.10 Temperature - 99.5 F (HIGH) Pulse - 96 /min Respiration - 18 /min BP - 168/92 mm(hg) (HIGH) O2 Sat - 97 % Pain - 6 Fatigue - 5 Physical Examination: Constitutional - He appears somewhat weak generally, Eyes - Sclerae nonicteric. Conjunctivae clear, ENMT - No lesions noted in the oral cavity, Hematologic/Lymphatic - No cervical, clavicular, or axillary adenopathy, Respiratory - Lungs sound clear with diminished air movement bilaterally, Cardiovascular - Heart rhythm is regular. There is no murmur, gallop, or rub noted, Abdomen - Soft. Liver and spleen are not enlarged. There is no abdominal mass or ascites noted and there is no inguinal adenopathy, Extremities - No edema, Neurologic - No focal neurologic deficits noted. Lab/Imaging: Test performed on Jul 16, 2020 10:50 Sodium 141 mmol/L TSH 0.61 uIU/mL Potassium 4.3 mmol/L Chloride 104 mmol/L CO2 29 mmol/L Anion Gap 12.3 BUN 7 mg/dL Creatinine 0.8 mg/dL Cr Clearance (Est) 118.8800 mL/min eGFR 96.7 mL/min Glucose 113 mg/dL Osmolality - Calculated 291 mOsm/kg Calcium 8.8 mg/dL Protein, Total 7.3 g/dL Albumin 3.9 g/dL Globulin 3.4 g/dL Bilirubin, Total 0.4 mg/dL ALT (SGPT) 6 U/L AST (SGOT) 13 U/L Alkaline Phosphatase 67 IU/L WBC 7.1 10 3/uL RBC 4.12 10 6/uL HGB 12.6 g/dL HCT 39.5 % MCV 95.9 fL MCH 30.6 pg MCHC 31.9 g/dL RDW 14.0 % Platelet Count 196 10 3/cmm MPV 9.3 fL Neutrophils 4.07 10 3/uL Lymphocytes 1.4 10 3/uL Monocytes 0.7 10 3/uL Eosinophils 0.9 10 3/uL Basophils 0.1 10 3/uL Neutrophil % 57.5 % Lymphocyte % 19.4 % Monocyte % 9.4 % Eosinophil % 12.5 % Basophils % 1.1 % NRBC % 0 % Problem List: 1. Non-small cell carcinoma involving her right hilar mass. Pathology favored squamous cell carcinoma. It appeared to be a new primary malignancy. By PET/CT there appeared to be additional right hilar adenopathy so that by clinical evaluation his disease appeared to be stage IIB (T2a, N1, M0) at initial diagnosis. He had subsequent progression to stage IV with development of multiple metastatic lesions in the brain. 2. He has a history of grade 3/4 adenocarcinoma involving the upper lobe of the left lung, stage IB (T2a, N0, M0), for which he underwent thoracotomy with left upper lobectomy and mediastinal lymphadenectomy on 09/04/2012. 3. COPD. 4. Hypertension. 5. Dyslipidemia. 6. Coronary artery disease with previous myocardial infarction. 7. Degenerative arthritis. 8. History of treated hepatitis C. 9. History of abdominal aortic aneurysm for which he underwent endograft repair in 2010. 10. Posttraumatic stress disorder with anxiety/depression. Problems Addressed with this Encounter and Plan: Patient with non-small cell carcinoma involving the perihilar region of the right lung. Pathology favored squamous cell carcinoma. By PET/CT there appeared to be additional right hilar adenopathy so that by clinical evaluation his disease appeared to be stage IIB (T2a, N1, M0). His disease was deemed inoperable. As such, he was treated with radiation concurrently with weekly carboplatin/paclitaxel chemotherapy. His chemotherapy was complicated by neutropenia and Abraxane was substituted for the paclitaxel due to steroid intolerance. He completed radiation on 11/20/2019 to a total dose of 6000 cGy. He received a total of 4 weekly chemotherapy infusions. He had a very good response by follow-up chest CT. On 01/16/2020 he began maintenance immunotherapy with durvalumab. He tolerated the initial infusion well, and he then continued treatment at 2-week intervals. He received cycle 7 of durvalumab on 05/07/2020. His further treatment was put on hold, as he subsequently was found to have progression to stage IV disease with brain MRI on 05/19/2020 showing right and left parietal lobe and right posterior temporal lobe metastatic lesions. He was deemed unsuitable for surgical resection. He underweint SRS to all 3 sites of involvement, completed in June 2020. He has had a very good response by follow-up MRI. In the meantime, his restaging showed a slight increase in the size of a subcarinal lymph node. There was otherwise no obvious disease progression. Changes in the right lung were felt to be most likely infectious/inflammatory and/or treatment related. He has had significant improvement clinically following the radiation. He still has reasonably good performance status. We discussed further management for the lung cancer. Given the fact that his disease progression appears to be limited to the central nervous system, the options for further treatment are limited. At this point I will request a next generation sequencing study by liquid biopsy to explore any option for a targetable therapy. Beyond that, I will look into the possibility of dual immunotherapy. The likelihood of benefit with second line chemotherapy I think will be very low. Signed By: Gino Grissom M.D. <<Signature on File>>
== END 2020-09-08 15:17 | disposition home or self-care (01) ==
LOC: ONCMED 15:18
PROVIDERS: PCP Emergency Medicine Emergency Medical Services; Visit Provider Internal Medicine Medical Oncology
DX: C34.01 Malignant neoplasm of right main bronchus (principal); C79.31 Secondary malignant neoplasm of brain; J44.9 Chronic obstructive pulmonary disease, unspecified; I10 Essential (primary) hypertension; E78.5 Hyperlipidemia, unspecified; I25.10 Atherosclerotic heart disease of native coronary artery without angina pectoris; I25.2 Old myocardial infarction; M19.90 Unspecified osteoarthritis, unspecified site; F43.10 Post-traumatic stress disorder, unspecified; F41.9 Anxiety disorder, unspecified; F32.9 Major depressive disorder, single episode, unspecified; Z86.19 Personal history of other infectious and parasitic diseases; Z85.118 Personal history of other malignant neoplasm of bronchus and lung; Z79.899 Other long term (current) drug therapy; Z92.21 Personal history of antineoplastic chemotherapy
CPT/HCPCS: 36591; 99214

== ENCOUNTER 2020-10-14 07:53 | Outpatient (CLI) | payer OTHER, SELFPAY ==
--- NOTE | 2020-10-14 08:01 | USCV_ITS ---
Satish Fry Age: 64 Gender: M : 1955 Exam Date: 10/14/2020 08:12 Ordering Phys: Gino Grissom MD Technologist: Yao Hernandez Exam Location: [facility] [place] Indication: HIGH RISK MED, HX OF NM BP: 132 / 74 HR: 99 Rhythm: Sinus Technical Quality: Adequate MEASUREMENTS (Male / Female) Normal Values 2D ECHO LV Diastolic Diameter PLAX 4.8 cm 4.2 - 5.9 / 3.9 - 5.3 cm LV Systolic Diameter PLAX 3.3 cm IVS Diastolic Thickness 0.8 cm 0.6 - 1.0 / 0.6 - 0.9 cm IVS Systolic Thickness 1.4 cm LVPW Diastolic Thickness 0.9 cm 0.6 - 1.0 / 0.6 - 0.9 cm LVPW Systolic Thickness 1.2 cm LVOT Diameter 2.1 cm LV Ejection Fraction 2D Teich 57.7 % LV Ejection Fraction MOD 2C 51.6 % LV Ejection Fraction 2C AL 55.0 % LA Diameter 4.0 cm LA Width 4.4 cm LA Height 4.6 cm RA Width 4.0 cm RA Height 4.4 cm Aorta at Sinotubular Diameter 3.3 cm DOPPLER AV Peak Velocity 129.0 cm/s LVOT Peak Velocity 86.0 cm/s AV Area Cont Eq vti 2.5 cm squared AV Area Cont Eq pk 2.2 cm squared MV Area PHT 5.0 cm squared Mitral E to A Ratio 2.5 MV E' Velocity 55.0 cm/s Mitral E to MV E' Ratio 21.6 Mitral E to LV E' Lateral Ratio 24.6 Mitral E to LV E' Septal Ratio 19.3 TR Peak Velocity 140.0 cm/s TR Peak Gradient 7.8 mmHg TV Peak E Velocity 88.0 cm/s Right Atrial Pressure 3.0 mmHg Pulmonary Artery Systolic Pressu 10.8 mmHg FINDINGS Left Ventricle Normal left ventricular size, systolic function and wall thickness. Left ventricular ejection fraction is estimated at 55-60 %. There is possibly mild septal hypokinesis. Grade II diastolic dysfunction, moderately elevated filling pressures. Right Ventricle Normal right ventricular size and systolic function. Right ventricular systolic pressure 10.8 mmHg. Right Atrium Normal right atrial size. Right atrial pressure estimated at 3 mmHg. Left Atrium Normal left atrial size. Mitral Valve Structurally normal mitral valve. No mitral valve stenosis. Trace mitral valve regurgitation. Aortic Valve Mildly thickened trileaflet aortic valve. No aortic valve stenosis. No aortic valve regurgitation. Tricuspid Valve Structurally normal tricuspid valve. Trace tricuspid valve regurgitation. Pulmonic Valve Structurally normal pulmonic valve. Pericardium No pericardial effusion. Prominent epicardial fat. Aorta Normal-sized aortic root. Normal sized inferior vena cava with normal respiratory variation. CONCLUSIONS 1. Normal left ventricular size, systolic function and wall thickness. Left ventricular ejection fraction is estimated at 55-60 %. There is possibly mild septal hypokinesis. Grade II diastolic dysfunction, moderately elevated filling pressures. 2. Normal right ventricular size and systolic function. 3. No significant valvular normality. 4. Normal pulmonary artery pressure. 5. No prior similar studies to compare. Yuni Vang MD (Electronically Signed) Final Date: 14 October 2020 16:59 S
== END 2020-10-14 07:54 | disposition home or self-care (01) ==
LOC: US 07:54
PROVIDERS: PCP Emergency Medicine Emergency Medical Services; Visit Provider Internal Medicine Medical Oncology
DX: Z79.899 Other long term (current) drug therapy (principal); I25.2 Old myocardial infarction
CPT/HCPCS: 93306

== ENCOUNTER 2020-10-14 08:42 | Outpatient (CLI) | payer OTHER, SELFPAY ==
[2020-10-14 09:25] LABS: Basophils # 0.1 10^3/uL (0.0-0.1); Eosinophils % 13.5 %; Hematocrit 50.6 % (42.0-52.0); Hemoglobin 16.1 g/dL (11.7-16.6); Lymphocytes # 1.7 10^3/uL (0.8-4.8); Lymphocytes % 22.6 %; Mean Corpuscular HGB Conc 31.8 g/dL (30.0-36.0); Mean Corpuscular Hemoglobin 29.3 pg (28.0-34.0); Mean Corpuscular Volume 92.2 fl (80-94); Mean Platelet Volume 9.9 fL (7.4-10.4); Monocytes # 0.7 10^3/uL (0.2-0.9); Monocytes % 9.3 %; Neutrophils # 4.07 10^3/uL (1.8-7.7); Neutrophils % 53.5 %; Nucleated Red Blood Cells % 0 %; Platelet Count 238 10^3/cmm (130-400); Red Blood Count 5.49 10^6/uL (4.1-5.3); Red Cell Distribution Width 14.6 % (12.1-15.1); White Blood Count 7.6 10^3/uL (4.0-10.0)
[2020-10-14 10:04] LABS: Alanine Aminotransferase 7 U/L (0-41); Albumin Level 3.8 g/dL (3.5-5.2); Alkaline Phosphatase 87 IU/L (40-130); Anion Gap 14.2 (5-19); Aspartate Amino Transferase 14 U/L (0-40); Blood Urea Nitrogen 7 mg/dL (8-23); Calcium 8.9 mg/dL (8.5-10.5); Carbon Dioxide 27 mmol/L (22-29); Chloride 100 mmol/L (98-107); Globulin 4.1 g/dL (1.3-4.6); Glomerular Filtration Rate 112.8 mL/min (90-130); Glucose 104 mg/dL (65-115); Osmolality Calculated 282 mOsm/kg (285-295); Potassium 4.2 mmol/L (3.5-5.1); Sodium 137 mmol/L (136-145); Total Bilirubin 0.3 mg/dL (0.15-1.2); Total Protein 7.9 g/dL (6.6-8.7)
== END 2020-10-14 08:43 | disposition home or self-care (01) ==
LOC: ONCMED 08:45
PROVIDERS: PCP Emergency Medicine Emergency Medical Services; Visit Provider Internal Medicine Medical Oncology
DX: C34.11 Malignant neoplasm of upper lobe, right bronchus or lung (principal); I10 Essential (primary) hypertension; E78.5 Hyperlipidemia, unspecified; I25.10 Atherosclerotic heart disease of native coronary artery without angina pectoris; Z79.899 Other long term (current) drug therapy
CPT/HCPCS: 80053; 85025

== ENCOUNTER 2020-11-05 14:02 | Outpatient (CLI) | payer OTHER, SELFPAY ==
[2020-11-05 14:39] LABS: Basophils % 0.7 %; Eosinophils # 0.8 10^3/uL (0.0-0.8); Eosinophils % 13.9 %; Hematocrit 47.8 % (42.0-52.0); Lymphocytes # 1.4 10^3/uL (0.8-4.8); Lymphocytes % 24.6 %; Mean Corpuscular HGB Conc 31.4 g/dL (30.0-36.0); Mean Corpuscular Hemoglobin 29.3 pg (28.0-34.0); Mean Corpuscular Volume 93.4 fl (80-94); Mean Platelet Volume 10.4 fL (7.4-10.4); Monocytes # 0.6 10^3/uL (0.2-0.9); Monocytes % 9.6 %; Neutrophils # 2.93 10^3/uL (1.8-7.7); Nucleated Red Blood Cells % 0 %; Platelet Count 146 10^3/cmm (130-400); Red Blood Count 5.12 10^6/uL (4.1-5.3); White Blood Count 5.7 10^3/uL (4.0-10.0)
[2020-11-05 15:16] LABS: Alanine Aminotransferase 6 U/L (0-41); Albumin Level 3.8 g/dL (3.5-5.2); Alkaline Phosphatase 64 IU/L (40-130); Anion Gap 12.6 (5-19); Aspartate Amino Transferase 12 U/L (0-40); Blood Urea Nitrogen 15 mg/dL (8-23); Calcium 8.8 mg/dL (8.5-10.5); Carbon Dioxide 27 mmol/L (22-29); Chloride 99 mmol/L (98-107); Globulin 3.5 g/dL (1.3-4.6); Glomerular Filtration Rate 74.5 mL/min (90-130); Glucose 135 mg/dL (65-115); Osmolality Calculated 283 mOsm/kg (285-295); Potassium 3.6 mmol/L (3.5-5.1); Sodium 135 mmol/L (136-145); Total Bilirubin 0.4 mg/dL (0.15-1.2); Total Protein 7.3 g/dL (6.6-8.7)
--- NOTE | 2020-11-06 07:32 | ONC FU_ITS ---
Dr. Grissom Patient Follow-Up Note Patient: Satish Fry Unit #: [id number]: 1955 Dicatated By: Gino Grissom M.D.Date of Visit:Nov 05, 2020 Onc Med Follow-up/Prog Note Chief Complaint: Lung cancer. History of Present Illness: This is a 65 year-old man with non-small cell lung cancer involving the perihilar region of the right lung, stage IIB (T2a, N1, M0) at initial diagnosis in August 2019. He had subsequent progression to stage IVB (M1c) with development of multiple brain metastases. 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 He has a prior history of non-small cell carcinoma of the left lung. On 09/04/2012 he had undergone left upper lobectomy with mediastinal lymphadenectomy for grade 3/4 adenocarcinoma, stage IB (T2a, N0, M0). The primary tumor measured 3.1 x 3.0 x 2.6 cm. There was no involvement in a total of 14 lymph nodes. I had seen him for medical oncology consultation on 09/28/2012. He received no further treatment, as there appeared to be no indication for postoperative chemotherapy or radiation. On 07/20/2019 he had presented to the emergency room with chest pain and shortness of breath. His CT pulmonary angiogram showed no evidence of pulmonary embolism. However, he was noted to have a 3.3 x 3.8 cm right hilar mass encasing the central right bronchopulmonary structures. There was invasion into the superior right pulmonary vein. There was additional subcarinal lymph node measuring 1.2 cm. Groundglass attenuation along the right minor fissure appeared compatible with either pneumonitis or lymphangitic spread of tumor. Staging PET/CT on 08/18/2019 showed perihilar mass in the right upper lobe measuring 2.8 cm in diameter with SUV 13.5, consistent with malignancy. A secondary right hilar lymph node measuring 1.4 x 2.5 cm with SUV 9.5, consistent with metastatic disease. The subcarinal lymph node did not demonstrate significant FDG activity and other mediastinal lymph nodes appeared radiographically benign and FDG negative. On 08/22/2019 he underwent bronchoscopy/EBUS with transbronchial needle aspiration biopsy of station 7 and station 10R lymph nodes. There were no endobronchial lesions identified. Pathology on the station 7 lymph node showed benign reactive lymph node with no evidence of dysplastic or neoplastic process. The 10R lymph node showed metastatic non-small cell carcinoma favoring squamous cell carcinoma. As his disease was deemed inoperable, he was recommended to undergo chemoradiation. He began radiation concurrently with weekly carboplatin/paclitaxel chemotherapy on 10/09/2019. His initial chemotherapy was complicated by neutropenia and by steroid intolerance, and with his further chemotherapy Abraxane was substituted for paclitaxel. He completed radiation on 11/20/2019 to a total dose of 6000 cGy. He received a total of 4 weekly chemotherapy infusions. His restaging chest CT on 12/24/2019 showed significant decrease in the right hilar mass, which at that point was hardly discernible. Subcarinal lymphadenopathy appeared unchanged. With that response, he then began maintenance immunotherapy with durvalumab. His other medical illnesses include hypertension, dyslipidemia, and coronary artery disease with previous myocardial infarction. He has significant underlying COPD. 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 He also has degenerative arthritis and posttraumatic stress disorder with anxiety/depression. He has a history of smoking 2 packs of cigarettes daily for 50 years. INTERIM HISTORY: He began cycle 1 of durvalumab on 01/16/2020. He tolerated it without adverse effects, and he then continued treatment at 2-week intervals. CT pulmonary angiogram on 03/12/2020 showed no evidence of pulmonary embolus. There was stable bronchovascular thickening along the right hilum and there was stable subcarinal lymphadenopathy measuring 1.6 cm. There was no evidence of disease progression. He continued his maintenance immunotherapy. He received cycle 7 on 05/07/2020. On 05/16/2019 when he presented to the emergency room with nausea/vomiting and visual changes. His head CT showed well circumscribed low-attenuation bilateral parietal lesions with surrounding edema, consistent with metastatic disease. The largest was on the left measuring 2.9 x 2.3 cm. The right parietal lesion measured 1.9 x 2.0 cm. Further evaluation with MRI on 05/15/2020 showed peripheral enhancing bilateral parietal lesions on the left measuring 2.8 x 2.9 cm and on the right measuring 1.9 x 1.6 cm. An additional 8 mm lesion was noted in the right posterior temporal lobe. The appearance was consistent with metastatic disease. He was deemed unsuitable for surgical resection. He was then seen by Dr. Robles for palliative radiation. He underwent SRS to all 3 lesions. The right posterior temporal lesion was treated on 05/26/2020 to a total dose of 2400 cGy. Treatment to the left parietal lesion was completed on 06/06/2020 to a dose of 3000 cGy administered in 10 fractions. Treatment to the right parietal lesion was completed on 06/18/2020 to a total dose of 3000 cGy administered in [address] scans on 07/28/2020 showed stable bronchovascular thickening along the right hilum, unchanged from the prior study. There was progressed subcarinal lymphadenopathy measuring 2.0 cm compared to 1.6 cm. There were no other findings of disease progression. Hazy groundglass opacities in the right upper lobe anteriorly appear to be most consistent with infectious or inflammatory change. Consolidative opacity or atelectasis in the right lower lobe medially along the right infrahilar lung measuring 1.6 cm appeared to be most likely due to treatment related changes, but the appearance was nonspecific. A noncalcified nodule at the right hemidiaphragm measuring 6 mm appeared stable. A cavernous hemangioma involving the left hepatic lobe appeared stable measuring 1.0 cm. Repeat head MRI on 08/29/2020 showed significant decrease in size of the left parietal metastasis measuring 1.4 x 0.9 cm and in the right parietal metastasis measuring 0.8 x 0.4 cm. There was also improvement in the associated edema. The previously described right parahippocampal gyrus enhancing lesion was noted to have completely resolved. There were no new enhancing lesions identified. I had seen him for a follow-up visit on 09/08/2020. He had significant clinical improvement with the radiation. Given the MRI and CT findings, he then had further evaluation with next generation sequencing by liquid biopsy, and that study showed presence of an EGFR mutation, specifically a deletion involving exon 19 ([id number]). With that finding, he then began a trial of targeted therapy wtih osimertinib 80 mg daily on 10/21/2020. He is seen for a follow-up visit. He has been feeling pretty good generally. He says that he had some diarrhea on the second day after starting the osimertinib, but that subsequently resolved. He also has noticed some increase in his joint pain, most significantly in the left sciatic area. His energy is a little slower, but he is still doing light work. His ECOG score is 1. His appetite is the same. He has no fever or night sweats. He has had no mouth sores. He has no shortness of breath, cough, or chest pain. He has no other GI or complaints. He does not complain of headache or dizziness, and he has no focal neurologic symptoms. He has had no evidence of skin eruption. Medications: Albuterol Sulfate 2.5 mg (of 2.5 mg/0.5mL) Nebulization solution Inhalation q 6 hours PRN, amLODIPine Besylate 1 Tablet (of 5 mg) Oral daily, Asmanex HFA 2 Inhalation Aerosol Inhalation daily, Aspirin 1 Tablet (of 81 mg) Tablet, enteric coated Oral daily, Benadryl Allergy 1 Tablet (of 25 mg) Tablet Oral daily PRN, Cetirizine HCl 1 Tablet (of 10 mg) Oral daily, Diclofenac 1 Capsule Oral daily PRN, Fish Oil 1 Capsule Oral daily, Fluticasone Propionate 1 [place](s) (of 50 mcg/act) Suspension Nasal b.i.d., Gabapentin 1 (300 mg) Capsule Oral t.i.d., guaiFENesin 1 Tablet (of 400 mg) Oral b.i.d. PRN, metFORMIN HCl Tablet Oral, oxyCODONE HCl 1 Tablet (of 10 mg) Oral t.i.d. PRN, Pantoprazole Sodium 1 Tablet (of 40 mg) Tablet, enteric coated Oral daily, ProAir HFA 2 Puff(s) (of 108 (90 base) mcg/act) Aerosol, solution Inhalation four times a day PRN, Stiolto Respimat 2 Puff(s) (of 2.5-2.5 mcg/act) Aerosol, solution Inhalation daily, Tamsulosin HCl 1 Capsule (of 0.4 mg) Oral daily, Vitamin D 2 Capsule Oral daily Allergies: PENICILLIN and Statins. Vital Signs: Performed on Nov 05, 2020 16:17 Height - 68.50 in Weight - 191.8 lbs (LOW) BSA - 2.02 sq.m BMI - 28.74 Temperature - 98.5 F Pulse - 89 /min Respiration - 18 /min BP - 158/83 mm(hg) (HIGH) O2 Sat - 93 % (LOW) Pain - 5 Fatigue - 5 Physical Examination: Constitutional - He looks pretty good generally, Eyes - Sclerae nonicteric. Conjunctivae clear, ENMT - No lesions noted in the oral cavity, Hematologic/Lymphatic - No cervical, clavicular, or axillary adenopathy, Respiratory - Lungs sound clear with diminished air movement bilaterally, Cardiovascular - Heart rhythm is regular. There is no murmur, gallop, or rub noted, Abdomen - Soft. Liver and spleen are not enlarged. There is no abdominal mass or ascites noted and there is no inguinal adenopathy, Extremities - No edema, Neurologic - No focal neurologic deficits noted. Lab/Imaging: Test performed on Nov 05, 2020 14:20 Sodium 135 mmol/L Potassium 3.6 mmol/L Chloride 99 mmol/L CO2 27 mmol/L Anion Gap 12.6 BUN 15 mg/dL Creatinine 1.0 mg/dL Cr Clearance (Est) 93.8200 mL/min eGFR 74.5 mL/min Glucose 135 mg/dL Osmolality - Calculated 283 mOsm/kg Calcium 8.8 mg/dL Protein, Total 7.3 g/dL Albumin 3.8 g/dL Globulin 3.5 g/dL Bilirubin, Total 0.4 mg/dL ALT (SGPT) 6 U/L AST (SGOT) 12 U/L Alkaline Phosphatase 64 IU/L WBC 5.7 10 3/uL RBC 5.12 10 6/uL HGB 15.0 g/dL HCT 47.8 % MCV 93.4 fl MCH 29.3 pg MCHC 31.4 g/dL RDW 16.0 % Platelet Count 146 10 3/cmm MPV 10.4 fL Neutrophils 2.93 10 3/uL Lymphocytes 1.4 10 3/uL Monocytes 0.6 10 3/uL Eosinophils 0.8 10 3/uL Basophils 0.0 10 3/uL Neutrophil % 51.0 % Lymphocyte % 24.6 % Monocyte % 9.6 % Eosinophil % 13.9 % Basophils % 0.7 % NRBC % 0 % Problem List: 1. Non-small cell carcinoma involving her right hilar mass. Pathology favored squamous cell carcinoma. It appeared to be a new primary malignancy. By PET/CT there appeared to be additional right hilar adenopathy so that by clinical evaluation his disease appeared to be stage IIB (T2a, N1, M0) at initial diagnosis. He had subsequent progression to stage IV with development of multiple metastatic lesions in the brain. On next generation sequencing, his tumor was found to harbor an EGFR mutation, specifically in exon 19 deletion. 2. He has a history of grade 3/4 adenocarcinoma involving the upper lobe of the left lung, stage IB (T2a, N0, M0), for which he underwent thoracotomy with left upper lobectomy and mediastinal lymphadenectomy on 09/04/2012. 3. COPD. 4. Hypertension. 5. Dyslipidemia. 6. Coronary artery disease with previous myocardial infarction. 7. Degenerative arthritis. 8. History of treated hepatitis C. 9. History of abdominal aortic aneurysm for which he underwent endograft repair in 2010. 10. Posttraumatic stress disorder with anxiety/depression. Problems Addressed with this Encounter and Plan: Patient with non-small cell carcinoma involving the perihilar region of the right lung. Pathology favored squamous cell carcinoma. By PET/CT there appeared to be additional right hilar adenopathy so that by clinical evaluation his disease appeared to be stage IIB (T2a, N1, M0). His disease was deemed inoperable. As such, he was treated with radiation concurrently with weekly carboplatin/paclitaxel chemotherapy. His chemotherapy was complicated by neutropenia and Abraxane was substituted for the paclitaxel due to steroid intolerance. He completed radiation on 11/20/2019 to a total dose of 6000 cGy. He received a total of 4 weekly chemotherapy infusions. He had a very good response by follow-up chest CT. On 01/16/2020 he began maintenance immunotherapy with durvalumab. He tolerated the initial infusion well, and he then continued treatment at 2-week intervals. He received cycle 7 of durvalumab on 05/07/2020. His further treatment was put on hold, as he subsequently was found to have progression to stage IV disease with brain MRI on 05/19/2020 showing right and left parietal lobe and right posterior temporal lobe metastatic lesions. He was deemed unsuitable for surgical resection. He underweint SRS to all 3 sites of involvement, completed in June 2020. He has had a very good response by follow-up MRI. In the meantime, his restaging showed a slight increase in the size of a subcarinal lymph node. There was otherwise no obvious disease progression. Changes in the right lung were felt to be most likely infectious/inflammatory and/or treatment related. With those findings he then had further evaluation with next generation sequencing by liquid biopsy, and he was found to have an EGFR mutation, specifically in exon 19 deletion. On 10/21/2020 he began a trial of targeted therapy with osimertinib 80 mg daily. Thus far he has been tolerating it well with side effects limited to mild fatigue, transient diarrhea, and some increase in arthralgias. As such, he will continue osimertinib 80 mg daily. He will be scheduled for a follow-up visit in 1 month. Signed By: Gino Grissom M.D. <<Signature on File>>
== END 2020-11-05 14:03 | disposition home or self-care (01) ==
LOC: ONCMED 14:05
PROVIDERS: PCP Emergency Medicine Emergency Medical Services; Visit Provider Internal Medicine Medical Oncology
DX: C34.12 Malignant neoplasm of upper lobe, left bronchus or lung (principal); C79.31 Secondary malignant neoplasm of brain; J44.9 Chronic obstructive pulmonary disease, unspecified; I10 Essential (primary) hypertension; E78.5 Hyperlipidemia, unspecified; I25.10 Atherosclerotic heart disease of native coronary artery without angina pectoris; I25.2 Old myocardial infarction; M19.90 Unspecified osteoarthritis, unspecified site; Z79.899 Other long term (current) drug therapy; Z79.84 Long term (current) use of oral hypoglycemic drugs
CPT/HCPCS: 36591; 80053; 85025; 99214

== ENCOUNTER 2020-12-03 09:46 | Outpatient (CLI) | payer OTHER, SELFPAY ==
--- NOTE | 2020-12-03 | CT_ITS ---
WS: [id number] CT CHEST, ABDOMEN, AND PELVIS TECHNIQUE: Contrast-enhanced CT of the chest, abdomen, and pelvis with coronal and sagittal reformatt ed images. CLINICAL INFORMATION: LUNG CANCER, BRAIN METS COMPARISON: July 28, 2020 and PET/CT August 18, 2019. CT chest December 24, 2019 DLP: 2431.[address] scans at [facility] use at least one of these dose optimization techniques: automated e xposure control; mA and/or kV adjustment per patient size (includes targeted exams where dose is matc hed to clinical indication); or iterative reconstruction. CT CHEST: Again seen is a bronchovascular thickening along the right hilum unchanged from previous. Mild narrow ing of the right mainstem bronchus is unchanged. Semisolid opacity along the right infrahilar mediall y is slightly improved compared to previous. Today this measures 1.0 cm compared to 1.6 cm previous. This may be due to treatment-related changes. Patchy groundglass opacities in right upper lobe simila r to previous some of which have progressed likely related to treatment-related changes. Moderate chronic emphysematous changes. Subcarinal lymphadenopathy today measures 2.0 cm unchanged fr om previous. Single new tiny 4 mm noncalcified nodule right lower lobe laterally. Stable 3 mm noncalcified nodule left upper lobe 6 mm and stable nodule right lower lobe along the diaphragm. Normal caliber thoracic aorta. Aortic calcification. Coronary calcification. CT ABDOMEN AND PELVIS: Mild diffuse fatty infiltration of the liver. Cavernous hemangioma left hepatic lobe measuring 1 cm s table from previous. Normal portal vein and splenic vein. Normal gallbladder. Gallbladder is contract ed. Fatty atrophy of the pancreas. Normal GE junction. Adrenal glands are normal. Normal spleen. Norm al bilateral renal parenchymal enhancement. No hydronephrosis. Stable renal cysts. Stable calcificati on left kidney. Prior postoperative changes aortic endograft with biiliac extension. Sigmoid diverticulosis. No evidence of acute diverticulitis. No evidence of small or large bowel obst ruction. Tiny fat-containing umbilical hernia. No abdominal or pelvic lymphadenopathy. Disc space gisselle rowing L3-L4 L4-L5 and L5-S1. CT/CT chest abd pel w con* IMPRESSION: 1. Stable bronchovascular thickening about the right hilum unchanged from prev ious. 2. Stable 2.0 cm subcarinal lymphadenopathy. No progressed lymphadenopathy. 3. Semisolid opacity along the right infrahilar decreased in size today measur ing 1.0 cm compared to 1.6 cm previous. 4. Single new noncalcified nodule right lower lobe measuring 4 mm. This is non specific and could be followed up in 3-6 months. 5. A few additional subcentimeter tiny nodules are stable. 6. No evidence of metastatic disease in the abdomen or pelvis. 7. Aortic endograft with biiliac extension. 8. Stable cavernous hemangioma in the left hepatic lobe.
[2020-12-03] MEDS: iohexol 300 mg/mL 50 mL Btl PO (11:24)
[2020-12-03] MEDS: iohexol 300 mg/mL 100 mL Btl IV (11:24)
== END 2020-12-03 09:47 | disposition home or self-care (01) ==
PROVIDERS: Absent Provider Radiology Radiation Oncology; PCP Emergency Medicine Emergency Medical Services; Visit Provider Internal Medicine Medical Oncology
DX: C34.01 Malignant neoplasm of right main bronchus (principal); C34.12 Malignant neoplasm of upper lobe, left bronchus or lung; R59.0 Localized enlarged lymph nodes; D18.00 Hemangioma unspecified site
CPT/HCPCS: 71260; 74177; Q9967

== ENCOUNTER 2020-12-03 11:37 | Outpatient (CLI) | payer OTHER, SELFPAY ==
--- NOTE | 2020-12-03 12:00 | ECG_ITS ---
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 Measurements Intervals [place] Rate: 102 P: 73 NM: 181 QRS: -38 QRSD: 90 T: 71 QT: 352 QTc: 459 Interpretive Statements SINUS TACHYCARDIA POSSIBLE LEFT ATRIAL ENLARGEMENT [-0.1mV P WAVE IN V1/V2] LEFT AXIS DEVIATION [QRS AXIS < -30] LOW QRS VOLTAGE IN PRECORDIAL LEADS [QRS DEFLECTION < 1.0 mV IN CHEST LEADS] INTERPRETATION BASED ON A DEFAULT AGE OF 40 YEARS Compared to ECG 07/30/2018 02:39:11 Left-axis deviation now present Low QRS voltage now present Left anterior fascicular block no longer present T-wave abnormality no longer present Electronically Signed On 12-04-2020 1:28:03 CDT by Jaison Winters M.D. [id number]
== END 2020-12-03 11:38 | disposition home or self-care (01) ==
PROVIDERS: PCP Emergency Medicine Emergency Medical Services; Visit Provider Internal Medicine Medical Oncology
DX: C79.31 Secondary malignant neoplasm of brain (principal); R00.0 Tachycardia, unspecified; R94.31 Abnormal electrocardiogram [ECG] [EKG]
CPT/HCPCS: 93005

== ENCOUNTER 2020-12-08 06:22 | Outpatient (CLI) | payer OTHER, SELFPAY ==
[2020-12-08 11:50] LABS: Basophils % 0.7 %; Eosinophils # 0.5 10^3/uL (0.0-0.8); Eosinophils % 11.3 %; Hematocrit 46.3 % (42.0-52.0); Hemoglobin 14.4 g/dL (11.7-16.6); Lymphocytes # 1.3 10^3/uL (0.8-4.8); Lymphocytes % 28.3 %; Mean Corpuscular HGB Conc 31.1 g/dL (30.0-36.0); Mean Corpuscular Hemoglobin 29.9 pg (28.0-34.0); Mean Corpuscular Volume 96.1 fl (80-94); Monocytes # 0.5 10^3/uL (0.2-0.9); Monocytes % 10.7 %; Neutrophils # 2.23 10^3/uL (1.8-7.7); Neutrophils % 48.6 %; Nucleated Red Blood Cells % 0 %; Platelet Count 126 10^3/cmm (130-400); Red Blood Count 4.82 10^6/uL (4.1-5.3); Red Cell Distribution Width 15.3 % (12.1-15.1); White Blood Count 4.6 10^3/uL (4.0-10.0)
[2020-12-08 12:03] LABS: Alanine Aminotransferase 6 U/L (0-41); Albumin Level 3.9 g/dL (3.5-5.2); Alkaline Phosphatase 54 IU/L (40-130); Anion Gap 14.3 (5-19); Aspartate Amino Transferase 14 U/L (0-40); Blood Urea Nitrogen 10 mg/dL (8-23); Calcium 8.5 mg/dL (8.5-10.5); Carbon Dioxide 26 mmol/L (22-29); Chloride 99 mmol/L (98-107); Globulin 3.4 g/dL (1.3-4.6); Glomerular Filtration Rate 112.5 mL/min (90-130); Glucose 119 mg/dL (65-115); Osmolality Calculated 280 mOsm/kg (285-295); Potassium 4.3 mmol/L (3.5-5.1); Sodium 135 mmol/L (136-145); Total Bilirubin 0.3 mg/dL (0.15-1.2); Total Protein 7.3 g/dL (6.6-8.7)
--- NOTE | 2020-12-12 17:44 | ONC FU_ITS ---
Dr. Grissom Patient Follow-Up Note Patient: Satish Fry Unit #: [id number]: [id number] Dicatated By: Gino Grissom M.D.Date of Visit:Dec 08, 2020 Onc Med Follow-up/Prog Note Chief Complaint: Lung cancer. History of Present Illness: This is a 65 year-old man with non-small cell lung cancer involving the perihilar region of the right lung, stage IIB (T2a, N1, M0) at initial diagnosis in August 2019. He had subsequent progression to stage IVB (M1c) with development of multiple brain metastases. 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 He has a prior history of non-small cell carcinoma of the left lung. On 09/04/2012 he had undergone left upper lobectomy with mediastinal lymphadenectomy for grade 3/4 adenocarcinoma, stage IB (T2a, N0, M0). The primary tumor measured 3.1 x 3.0 x 2.6 cm. There was no involvement in a total of 14 lymph nodes. I had seen him for medical oncology consultation on 09/28/2012. He received no further treatment, as there appeared to be no indication for postoperative chemotherapy or radiation. On 07/20/2019 he had presented to the emergency room with chest pain and shortness of breath. His CT pulmonary angiogram showed no evidence of pulmonary embolism. However, he was noted to have a 3.3 x 3.8 cm right hilar mass encasing the central right bronchopulmonary structures. There was invasion into the superior right pulmonary vein. There was additional subcarinal lymph node measuring 1.2 cm. Groundglass attenuation along the right minor fissure appeared compatible with either pneumonitis or lymphangitic spread of tumor. Staging PET/CT on 08/18/2019 showed perihilar mass in the right upper lobe measuring 2.8 cm in diameter with SUV 13.5, consistent with malignancy. A secondary right hilar lymph node measuring 1.4 x 2.5 cm with SUV 9.5, consistent with metastatic disease. The subcarinal lymph node did not demonstrate significant FDG activity and other mediastinal lymph nodes appeared radiographically benign and FDG negative. On 08/22/2019 he underwent bronchoscopy/EBUS with transbronchial needle aspiration biopsy of station 7 and station 10R lymph nodes. There were no endobronchial lesions identified. Pathology on the station 7 lymph node showed benign reactive lymph node with no evidence of dysplastic or neoplastic process. The 10R lymph node showed metastatic non-small cell carcinoma favoring squamous cell carcinoma. As his disease was deemed inoperable, he was recommended to undergo chemoradiation. He began radiation concurrently with weekly carboplatin/paclitaxel chemotherapy on 10/09/2019. His initial chemotherapy was complicated by neutropenia and by steroid intolerance, and with his further chemotherapy Abraxane was substituted for paclitaxel. He completed radiation on 11/20/2019 to a total dose of 6000 cGy. He received a total of 4 weekly chemotherapy infusions. His restaging chest CT on 12/24/2019 showed significant decrease in the right hilar mass, which at that point was hardly discernible. Subcarinal lymphadenopathy appeared unchanged. With that response, he then began maintenance immunotherapy with durvalumab. His other medical illnesses include hypertension, dyslipidemia, and coronary artery disease with previous myocardial infarction. He has significant underlying COPD. 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 He also has degenerative arthritis and posttraumatic stress disorder with anxiety/depression. He has a history of smoking 2 packs of cigarettes daily for 50 years. INTERIM HISTORY: He began cycle 1 of durvalumab on 01/16/2020. He tolerated it without adverse effects, and he then continued treatment at 2-week intervals. CT pulmonary angiogram on 03/12/2020 showed no evidence of pulmonary embolus. There was stable bronchovascular thickening along the right hilum and there was stable subcarinal lymphadenopathy measuring 1.6 cm. There was no evidence of disease progression. He continued his maintenance immunotherapy. He received cycle 7 on 05/07/2020. On 05/16/2019 when he presented to the emergency room with nausea/vomiting and visual changes. His head CT showed well circumscribed low-attenuation bilateral parietal lesions with surrounding edema, consistent with metastatic disease. The largest was on the left measuring 2.9 x 2.3 cm. The right parietal lesion measured 1.9 x 2.0 cm. Further evaluation with MRI on 05/15/2020 showed peripheral enhancing bilateral parietal lesions on the left measuring 2.8 x 2.9 cm and on the right measuring 1.9 x 1.6 cm. An additional 8 mm lesion was noted in the right posterior temporal lobe. The appearance was consistent with metastatic disease. He was deemed unsuitable for surgical resection. He was then seen by Dr. Robles for palliative radiation. He underwent SRS to all 3 lesions. The right posterior temporal lesion was treated on 05/26/2020 to a total dose of 2400 cGy. Treatment to the left parietal lesion was completed on 06/06/2020 to a dose of 3000 cGy administered in 10 fractions. Treatment to the right parietal lesion was completed on 06/18/2020 to a total dose of 3000 cGy administered in [address] scans on 07/28/2020 showed stable bronchovascular thickening along the right hilum, unchanged from the prior study. There was progressed subcarinal lymphadenopathy measuring 2.0 cm compared to 1.6 cm. There were no other findings of disease progression. Hazy groundglass opacities in the right upper lobe anteriorly appear to be most consistent with infectious or inflammatory change. Consolidative opacity or atelectasis in the right lower lobe medially along the right infrahilar lung measuring 1.6 cm appeared to be most likely due to treatment related changes, but the appearance was nonspecific. A noncalcified nodule at the right hemidiaphragm measuring 6 mm appeared stable. A cavernous hemangioma involving the left hepatic lobe appeared stable measuring 1.0 cm. Repeat head MRI on 08/29/2020 showed significant decrease in size of the left parietal metastasis measuring 1.4 x 0.9 cm and in the right parietal metastasis measuring 0.8 x 0.4 cm. There was also improvement in the associated edema. The previously described right parahippocampal gyrus enhancing lesion was noted to have completely resolved. There were no new enhancing lesions identified. I had seen him for a follow-up visit on 09/08/2020. He had significant clinical improvement with the radiation. Given the MRI and CT findings, he then had further evaluation with next generation sequencing by liquid biopsy, and that study showed presence of an EGFR mutation, specifically a deletion involving exon 19 ([id number]). With that finding, he then began a trial of targeted therapy wtih osimertinib 80 mg daily on 10/21/2020. He is seen for a follow-up visit. He has been feeling okay, though his energy comes and goes. He says he cannot do much, but he is still able to do some light work. ECOG score is 1. He has good appetite. He has no fever or night sweats. Since he started the osimertinib he has had some dry skin and his nails have been cracking a little bit. He does not seem to be having any other obvious side effects. He does have sinus drainage all the time he has had some cough. He has some shortness of breath, but his breathing has been pretty good. He does not complain of chest pain. He currently has no GI or complaints. In particular, he has had no diarrhea. He has generalized musculoskeletal pain, that has been going on for years. He does not complain of headache or dizziness, and he has no focal neurologic symptoms. Medications: Albuterol Sulfate 2.5 mg (of 2.5 mg/0.5mL) Nebulization solution Inhalation q 6 hours PRN, amLODIPine Besylate 1 Tablet (of 5 mg) Oral daily, Asmanex HFA 2 Inhalation Aerosol Inhalation daily, Aspirin 1 Tablet (of 81 mg) Tablet, enteric coated Oral daily, Benadryl Allergy 1 Tablet (of 25 mg) Tablet Oral daily PRN, Cetirizine HCl 1 Tablet (of 10 mg) Oral daily, Diclofenac 1 Capsule Oral daily PRN, Fish Oil 1 Capsule Oral daily, Fluticasone Propionate 1 Remington(s) (of 50 mcg/act) Suspension Nasal b.i.d., Gabapentin 1 (300 mg) Capsule Oral t.i.d., guaiFENesin 1 Tablet (of 400 mg) Oral b.i.d. PRN, metFORMIN HCl Tablet Oral, oxyCODONE HCl 1 Tablet (of 10 mg) Oral t.i.d. PRN, Pantoprazole Sodium 1 Tablet (of 40 mg) Tablet, enteric coated Oral daily, ProAir HFA 2 Puff(s) (of 108 (90 base) mcg/act) Aerosol, solution Inhalation four times a day PRN, Stiolto Respimat 2 Puff(s) (of 2.5-2.5 mcg/act) Aerosol, solution Inhalation daily, Tamsulosin HCl 1 Capsule (of 0.4 mg) Oral daily, Vitamin D 2 Capsule Oral daily Allergies: PENICILLIN and Statins. Vital Signs: Performed on Dec 08, 2020 13:18 Height - 68.50 in Weight - 187.2 lbs (LOW) BSA - 2.00 sq.m BMI - 28.05 Temperature - 97.0 F (LOW) Pulse - 105 /min (HIGH) Respiration - 18 /min BP - 161/78 mm(hg) (HIGH) O2 Sat - 92 % (LOW) Pain - 4 Fatigue - 4 Physical Examination: Constitutional - He looks pretty good generally, Eyes - Sclerae nonicteric. Conjunctivae clear, ENMT - No lesions noted in the oral cavity, Hematologic/Lymphatic - No cervical, clavicular, or axillary adenopathy, Respiratory - Lungs show diminished air movement with coarse rales on inspiration and expiration bilaterally, Cardiovascular - Heart rhythm is regular. There is no murmur, gallop, or rub noted, Abdomen - Soft. Liver and spleen are not enlarged. There is no abdominal mass or ascites noted and there is no inguinal adenopathy, Extremities - No edema, Neurologic - No focal neurologic deficits noted. Lab/Imaging: Test performed on Dec 08, 2020 11:37 Sodium 135 mmol/L Potassium 4.3 mmol/L Chloride 99 mmol/L CO2 26 mmol/L Anion Gap 14.3 BUN 10 mg/dL Creatinine 0.7 mg/dL Cr Clearance (Est) 122.99 mL/min eGFR 112.5 mL/min Glucose 119 mg/dL Osmolality - Calculated 280 mOsm/kg Calcium 8.5 mg/dL Protein, Total 7.3 g/dL Albumin 3.9 g/dL Globulin 3.4 g/dL Bilirubin, Total 0.3 mg/dL ALT (SGPT) 6 U/L AST (SGOT) 14 U/L Alkaline Phosphatase 54 IU/L WBC 4.6 10 3/uL RBC 4.82 10 6/uL HGB 14.4 g/dL HCT 46.3 % MCV 96.1 fl MCH 29.9 pg MCHC 31.1 g/dL RDW 15.3 % Platelet Count 126 10 3/cmm MPV 10.0 fL Neutrophils 2.23 10 3/uL Lymphocytes 1.3 10 3/uL Monocytes 0.5 10 3/uL Eosinophils 0.5 10 3/uL Basophils 0.0 10 3/uL Neutrophil % 48.6 % Lymphocyte % 28.3 % Monocyte % 10.7 % Eosinophil % 11.3 % Basophils % 0.7 % NRBC % 0 % Problem List: 1. Non-small cell carcinoma involving her right hilar mass. Pathology favored squamous cell carcinoma. It appeared to be a new primary malignancy. By PET/CT there appeared to be additional right hilar adenopathy so that by clinical evaluation his disease appeared to be stage IIB (T2a, N1, M0) at initial diagnosis. He had subsequent progression to stage IV with development of multiple metastatic lesions in the brain. On next generation sequencing, his tumor was found to harbor an EGFR mutation, specifically in exon 19 deletion. 2. He has a history of grade 3/4 adenocarcinoma involving the upper lobe of the left lung, stage IB (T2a, N0, M0), for which he underwent thoracotomy with left upper lobectomy and mediastinal lymphadenectomy on 09/04/2012. 3. COPD. 4. Hypertension. 5. Dyslipidemia. 6. Coronary artery disease with previous myocardial infarction. 7. Degenerative arthritis. 8. History of treated hepatitis C. 9. History of abdominal aortic aneurysm for which he underwent endograft repair in 2010. 10. Posttraumatic stress disorder with anxiety/depression. Problems Addressed with this Encounter and Plan: Patient with non-small cell carcinoma involving the perihilar region of the right lung. Pathology favored squamous cell carcinoma. By PET/CT there appeared to be additional right hilar adenopathy so that by clinical evaluation his disease appeared to be stage IIB (T2a, N1, M0). His disease was deemed inoperable. As such, he was treated with radiation concurrently with weekly carboplatin/paclitaxel chemotherapy. His chemotherapy was complicated by neutropenia and Abraxane was substituted for the paclitaxel due to steroid intolerance. He completed radiation on 11/20/2019 to a total dose of 6000 cGy. He received a total of 4 weekly chemotherapy infusions. He had a very good response by follow-up chest CT. On 01/16/2020 he began maintenance immunotherapy with durvalumab. He tolerated the initial infusion well, and he then continued treatment at 2-week intervals. He received cycle 7 of durvalumab on 05/07/2020. His further treatment was put on hold, as he subsequently was found to have progression to stage IV disease with brain MRI on 05/19/2020 showing right and left parietal lobe and right posterior temporal lobe metastatic lesions. He was deemed unsuitable for surgical resection. He underweint SRS to all 3 sites of involvement, completed in June 2020. He has had a very good response by follow-up MRI. In the meantime, his restaging showed a slight increase in the size of a subcarinal lymph node. There was otherwise no obvious disease progression. Changes in the right lung were felt to be most likely infectious/inflammatory and/or treatment related. With those findings he then had further evaluation with next generation sequencing by liquid biopsy, and he was found to have an EGFR mutation, specifically an exon 19 deletion. On 10/21/2020 he began a trial of targeted therapy with osimertinib 80 mg daily. Thus far he has been tolerating it well. He has had some fatigue, and initially had a little bit of diarrhea, that subsequently resolved. He is otherwise just had some dry skin and nail changes. Overall, he has been doing pretty well clinically, though recently has had some increased cough and chest congestion. He will be given antibiotic coverage with doxycycline for 7 days. He will continue treatment with osimertinib 80 mg daily. He will be scheduled for a follow-up visit in 1 month. He will be scheduled for restaging head MRI prior to that visit. Signed By: Gino Grissom M.D. <<Signature on File>>
== END 2020-12-08 06:23 | disposition home or self-care (01) ==
LOC: ONCMED 06:22
PROVIDERS: PCP Emergency Medicine Emergency Medical Services; Visit Provider Internal Medicine Medical Oncology
DX: C34.01 Malignant neoplasm of right main bronchus (principal); C79.31 Secondary malignant neoplasm of brain; I10 Essential (primary) hypertension; E78.5 Hyperlipidemia, unspecified; I25.10 Atherosclerotic heart disease of native coronary artery without angina pectoris; J44.9 Chronic obstructive pulmonary disease, unspecified; F43.10 Post-traumatic stress disorder, unspecified; I25.2 Old myocardial infarction; F41.9 Anxiety disorder, unspecified; F32.A Depression, unspecified; F17.210 Nicotine dependence, cigarettes, uncomplicated; Z79.82 Long term (current) use of aspirin; Z79.891 Long term (current) use of opiate analgesic; Z79.899 Other long term (current) drug therapy; Z86.19 Personal history of other infectious and parasitic diseases
CPT/HCPCS: 36591; 80053; 85025; 99214

== ENCOUNTER 2021-01-13 13:39 | Outpatient (CLI) | payer OTHER, SELFPAY ==
[2021-01-13 14:18] LABS: Eosinophils # 0.3 10^3/uL (0.0-0.8); Eosinophils % 6.1 %; Hematocrit 39.6 % (42.0-52.0); Hemoglobin 12.8 g/dL (11.7-16.6); Lymphocytes # 1.1 10^3/uL (0.8-4.8); Lymphocytes % 27.1 %; Mean Corpuscular HGB Conc 32.3 g/dL (30.0-36.0); Mean Corpuscular Hemoglobin 30.2 pg (28.0-34.0); Mean Corpuscular Volume 93.4 fl (80-94); Mean Platelet Volume 10.1 fL (7.4-10.4); Monocytes # 0.4 10^3/uL (0.2-0.9); Monocytes % 10.2 %; Neutrophils # 2.29 10^3/uL (1.8-7.7); Neutrophils % 55.4 %; Nucleated Red Blood Cells % 0 %; Platelet Count 162 10^3/cmm (130-400); Red Blood Count 4.24 10^6/uL (4.1-5.3); White Blood Count 4.1 10^3/uL (4.0-10.0)
[2021-01-13 14:43] LABS: Alanine Aminotransferase 9 U/L (0-41); Albumin Level 3.7 g/dL (3.5-5.2); Alkaline Phosphatase 65 IU/L (40-130); Aspartate Amino Transferase 13 U/L (0-40); Blood Urea Nitrogen 11 mg/dL (8-23); Calcium 8.4 mg/dL (8.5-10.5); Carbon Dioxide 23 mmol/L (22-29); Chloride 100 mmol/L (98-107); Globulin 3.6 g/dL (1.3-4.6); Glomerular Filtration Rate 74.5 mL/min (90-130); Glucose 120 mg/dL (65-115); Osmolality Calculated 283 mOsm/kg (285-295); Sodium 136 mmol/L (136-145); Total Bilirubin 0.2 mg/dL (0.15-1.2); Total Protein 7.3 g/dL (6.6-8.7)
== END 2021-01-13 13:40 | disposition home or self-care (01) ==
PROVIDERS: PCP Emergency Medicine Emergency Medical Services; Visit Provider Internal Medicine Medical Oncology
DX: C34.12 Malignant neoplasm of upper lobe, left bronchus or lung (principal); C34.01 Malignant neoplasm of right main bronchus; C79.31 Secondary malignant neoplasm of brain
CPT/HCPCS: 36591; 80053; 85025

== ENCOUNTER 2021-01-15 06:27 | Outpatient (CLI) | payer OTHER, SELFPAY ==
--- NOTE | 2021-01-15 13:58 | ONC FU_ITS ---
Dr. Grissom Patient Follow-Up Note Patient: Satish Fry Unit #: [id number]: [id number] Dicatated By: Gino Grissom M.D.Date of Visit:Jan 15, 2021 Onc Med Follow-up/Prog Note Chief Complaint: Lung cancer. History of Present Illness: This is a 65 year-old man with non-small cell lung cancer involving the perihilar region of the right lung, stage IIB (T2a, N1, M0) at initial diagnosis in August 2019. He had subsequent progression to stage IVB (M1c) with development of multiple brain metastases. 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 He has a prior history of non-small cell carcinoma of the left lung. On 09/04/2012 he had undergone left upper lobectomy with mediastinal lymphadenectomy for grade 3/4 adenocarcinoma, stage IB (T2a, N0, M0). The primary tumor measured 3.1 x 3.0 x 2.6 cm. There was no involvement in a total of 14 lymph nodes. I had seen him for medical oncology consultation on 09/28/2012. He received no further treatment, as there appeared to be no indication for postoperative chemotherapy or radiation. On 07/20/2019 he had presented to the emergency room with chest pain and shortness of breath. His CT pulmonary angiogram showed no evidence of pulmonary embolism. However, he was noted to have a 3.3 x 3.8 cm right hilar mass encasing the central right bronchopulmonary structures. There was invasion into the superior right pulmonary vein. There was additional subcarinal lymph node measuring 1.2 cm. Groundglass attenuation along the right minor fissure appeared compatible with either pneumonitis or lymphangitic spread of tumor. Staging PET/CT on 08/18/2019 showed perihilar mass in the right upper lobe measuring 2.8 cm in diameter with SUV 13.5, consistent with malignancy. A secondary right hilar lymph node measuring 1.4 x 2.5 cm with SUV 9.5, consistent with metastatic disease. The subcarinal lymph node did not demonstrate significant FDG activity and other mediastinal lymph nodes appeared radiographically benign and FDG negative. On 08/22/2019 he underwent bronchoscopy/EBUS with transbronchial needle aspiration biopsy of station 7 and station 10R lymph nodes. There were no endobronchial lesions identified. Pathology on the station 7 lymph node showed benign reactive lymph node with no evidence of dysplastic or neoplastic process. The 10R lymph node showed metastatic non-small cell carcinoma favoring squamous cell carcinoma. As his disease was deemed inoperable, he was recommended to undergo chemoradiation. He began radiation concurrently with weekly carboplatin/paclitaxel chemotherapy on 10/09/2019. His initial chemotherapy was complicated by neutropenia and by steroid intolerance, and with his further chemotherapy Abraxane was substituted for paclitaxel. He completed radiation on 11/20/2019 to a total dose of 6000 cGy. He received a total of 4 weekly chemotherapy infusions. His restaging chest CT on 12/24/2019 showed significant decrease in the right hilar mass, which at that point was hardly discernible. Subcarinal lymphadenopathy appeared unchanged. With that response, he then began maintenance immunotherapy with durvalumab. He began cycle 1 of durvalumab on 01/16/2020. He tolerated it without adverse effects, and he then continued treatment at 2-week intervals. CT pulmonary angiogram on 03/12/2020 showed no evidence of pulmonary embolus. There was stable bronchovascular thickening along the right hilum and there was stable subcarinal lymphadenopathy measuring 1.6 cm. There was no evidence of disease progression. He continued his maintenance immunotherapy. He received cycle 7 on 05/07/2020. On 05/15/2020 he presented to the emergency room with nausea/vomiting and visual changes. His head CT showed well circumscribed low-attenuation bilateral parietal lesions with surrounding edema, consistent with metastatic disease. The largest was on the left measuring 2.9 x 2.3 cm. The right parietal lesion measured 1.9 x 2.0 cm. Further evaluation with MRI on 05/15/2020 showed peripheral enhancing bilateral parietal lesions on the left measuring 2.8 x 2.9 cm and on the right measuring 1.9 x 1.6 cm. An additional 8 mm lesion was noted in the right posterior temporal lobe. The appearance was consistent with metastatic disease. He was deemed unsuitable for surgical resection. He was then seen by Dr. Robles for palliative radiation. He underwent SRS to all 3 lesions. The right posterior temporal lesion was treated on 05/26/2020 to a total dose of 2400 cGy. Treatment to the left parietal lesion was completed on 06/06/2020 to a dose of 3000 cGy administered in 10 fractions. Treatment to the right parietal lesion was completed on 06/18/2020 to a total dose of 3000 cGy administered in [address] scans on 07/28/2020 showed stable bronchovascular thickening along the right hilum, unchanged from the prior study. There was progressed subcarinal lymphadenopathy measuring 2.0 cm compared to 1.6 cm. There were no other findings of disease progression. Hazy groundglass opacities in the right upper lobe anteriorly appear to be most consistent with infectious or inflammatory change. Consolidative opacity or atelectasis in the right lower lobe medially along the right infrahilar lung measuring 1.6 cm appeared to be most likely due to treatment related changes, but the appearance was nonspecific. A noncalcified nodule at the right hemidiaphragm measuring 6 mm appeared stable. A cavernous hemangioma involving the left hepatic lobe appeared stable measuring 1.0 cm. Repeat head MRI on 08/29/2020 showed significant decrease in size of the left parietal metastasis measuring 1.4 x 0.9 cm and in the right parietal metastasis measuring 0.8 x 0.4 cm. There was also improvement in the associated edema. The previously described right parahippocampal gyrus enhancing lesion was noted to have completely resolved. There were no new enhancing lesions identified. His other medical illnesses include hypertension, dyslipidemia, and coronary artery disease with previous myocardial infarction. He has significant underlying COPD. 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 He also has degenerative arthritis and posttraumatic stress disorder with anxiety/depression. He has a history of smoking 2 packs of cigarettes daily for 50 years. INTERIM HISTORY: I had seen him for a follow-up visit on 09/08/2020. He had significant clinical improvement with the radiation. Given the MRI and CT findings, he then had further evaluation with next generation sequencing by liquid biopsy, and that study showed presence of an EGFR mutation, specifically a deletion involving exon 19 ([id number]). With that finding, he then began a trial of targeted therapy wtih osimertinib 80 mg daily on 10/21/2020. He is seen for a follow-up visit. He has been feeling pretty good generally. He does have limited activity, particularly when he first gets up in the morning. He says he does okay once he gets started, though it does take him longer to do things. His ECOG score is 1. He complains that he is not hungry, and he has been losing weight. By our scale he is down at least 15 pounds since October. He does not have fever or night sweats. He always has sinus drainage. He has not had sore mouth or throat. He has chronic cough and he has shortness of breath, but it is not any worse. He does not complain of chest pain. He has no GI or complaints. He has generalized aching all the time. He does not complain of headache or dizziness, and he has no focal neurologic symptoms. He does complain that his skin is dry, but he is managing it adequately with moisturizing cream. He has not had an actual skin eruption. Medications: Albuterol Sulfate 2.5 mg (of 2.5 mg/0.5mL) Nebulization solution Inhalation q 6 hours PRN, amLODIPine Besylate 1 Tablet (of 5 mg) Oral daily, Asmanex HFA 2 Inhalation Aerosol Inhalation daily, Aspirin 1 Tablet (of 81 mg) Tablet, enteric coated Oral daily, Benadryl Allergy 1 Tablet (of 25 mg) Tablet Oral daily PRN, Cetirizine HCl 1 Tablet (of 10 mg) Oral daily, Diclofenac 1 Capsule Oral daily PRN, Fish Oil 1 Capsule Oral daily, Fluticasone Propionate 1 Blair(s) (of 50 mcg/act) Suspension Nasal b.i.d., Gabapentin 1 (300 mg) Capsule Oral t.i.d., guaiFENesin 1 Tablet (of 400 mg) Oral b.i.d. PRN, metFORMIN HCl Tablet Oral, oxyCODONE HCl 1 Tablet (of 10 mg) Oral t.i.d. PRN, Pantoprazole Sodium 1 Tablet (of 40 mg) Tablet, enteric coated Oral daily, ProAir HFA 2 Puff(s) (of 108 (90 base) mcg/act) Aerosol, solution Inhalation four times a day PRN, Stiolto Respimat 2 Puff(s) (of 2.5-2.5 mcg/act) Aerosol, solution Inhalation daily, Tamsulosin HCl 1 Capsule (of 0.4 mg) Oral daily, Vitamin D 2 Capsule Oral daily Allergies: PENICILLIN and Statins. Vital Signs: Performed on Jan 15, 2021 13:34 Height - 68.50 in Weight - 178.8 lbs (LOW) BSA - 1.96 sq.m BMI - 26.79 Temperature - 97.8 F (LOW) Pulse - 92 /min Respiration - 16 /min BP - 121/74 mm(hg) O2 Sat - 98 % Pain - 4 Fatigue - 4 Physical Examination: Constitutional - He appears somewhat weak generally, Eyes - Sclerae nonicteric. Conjunctivae clear, ENMT - No lesions noted in the oral cavity, Hematologic/Lymphatic - No cervical, clavicular, or axillary adenopathy, Respiratory - Lungs show diminished air movement bilaterally, worse on the right, Cardiovascular - Heart rhythm is regular. There is no murmur, gallop, or rub noted, Abdomen - Soft. Liver and spleen are not enlarged. There is no abdominal mass or ascites noted and there is no inguinal adenopathy, Extremities - No edema, Neurologic - No focal neurologic deficits noted. Lab/Imaging: CBC shows hemoglobin 12.8 g, white blood cell count 4100, and platelet count 162,000. Comprehensive metabolic profile shows normal renal function with BUN 11 and creatinine 1.0 mg/dL. Bilirubin and liver enzymes are normal. Problem List: 1. Non-small cell carcinoma involving her right hilar mass. Pathology favored squamous cell carcinoma. It appeared to be a new primary malignancy. By PET/CT there appeared to be additional right hilar adenopathy so that by clinical evaluation his disease appeared to be stage IIB (T2a, N1, M0) at initial diagnosis. He had subsequent progression to stage IV with development of multiple metastatic lesions in the brain. On next generation sequencing, his tumor was found to harbor an EGFR mutation, specifically in exon 19 deletion. 2. He has a history of grade 3/4 adenocarcinoma involving the upper lobe of the left lung, stage IB (T2a, N0, M0), for which he underwent thoracotomy with left upper lobectomy and mediastinal lymphadenectomy on 09/04/2012. 3. COPD. 4. Hypertension. 5. Dyslipidemia. 6. Coronary artery disease with previous myocardial infarction. 7. Degenerative arthritis. 8. History of treated hepatitis C. 9. History of abdominal aortic aneurysm for which he underwent endograft repair in 2010. 10. Posttraumatic stress disorder with anxiety/depression. Problems Addressed with this Encounter and Plan: Patient with non-small cell carcinoma involving the perihilar region of the right lung. Pathology favored squamous cell carcinoma. By PET/CT there appeared to be additional right hilar adenopathy so that by clinical evaluation his disease appeared to be stage IIB (T2a, N1, M0). His disease was deemed inoperable. As such, he was treated with radiation concurrently with weekly carboplatin/paclitaxel chemotherapy. His chemotherapy was complicated by neutropenia and Abraxane was substituted for the paclitaxel due to steroid intolerance. He completed radiation on 11/20/2019 to a total dose of 6000 cGy. He received a total of 4 weekly chemotherapy infusions. He had a very good response by follow-up chest CT. On 01/16/2020 he began maintenance immunotherapy with durvalumab. He tolerated the initial infusion well, and he then continued treatment at 2-week intervals. He received cycle 7 of durvalumab on 05/07/2020. His further treatment was put on hold, as he subsequently was found to have progression to stage IV disease with brain MRI on 05/19/2020 showing right and left parietal lobe and right posterior temporal lobe metastatic lesions. He was deemed unsuitable for surgical resection. He underweint SRS to all 3 sites of involvement, completed in June 2020. He has had a very good response by follow-up MRI. In the meantime, his restaging showed a slight increase in the size of a subcarinal lymph node. There was otherwise no obvious disease progression. Changes in the right lung were felt to be most likely infectious/inflammatory and/or treatment related. With those findings he then had further evaluation with next generation sequencing by liquid biopsy, and he was found to have an EGFR mutation, specifically an exon 19 deletion. On 10/21/2020 he began a trial of targeted therapy with osimertinib 80 mg daily. Thus far he has been tolerating treatment very well. He has had some fatigue and reports having dry skin. He has no other obvious adverse effects. The main concern otherwise is that he has had significant weight loss. This also could possibly be treatment related, though it also could be an indication of disease progression, particularly the [employer] metastatic disease. For now he will continue the osimertinib at 80 mg daily, but he will be scheduled for restaging CT scans of the head and of the chest, abdomen, and pelvis. He will have further evaluation as indicated. Signed By: Gino Grissom M.D. <<Signature on File>>
== END 2021-01-15 06:28 | disposition home or self-care (01) ==
LOC: ONCMED 06:27
PROVIDERS: PCP Emergency Medicine Emergency Medical Services; Visit Provider Internal Medicine Medical Oncology
DX: C34.01 Malignant neoplasm of right main bronchus (principal); C79.31 Secondary malignant neoplasm of brain; Z85.118 Personal history of other malignant neoplasm of bronchus and lung; J44.9 Chronic obstructive pulmonary disease, unspecified; I10 Essential (primary) hypertension; E78.5 Hyperlipidemia, unspecified; I25.10 Atherosclerotic heart disease of native coronary artery without angina pectoris; I25.2 Old myocardial infarction; M19.90 Unspecified osteoarthritis, unspecified site; Z86.19 Personal history of other infectious and parasitic diseases; Z86.79 Personal history of other diseases of the circulatory system; F43.10 Post-traumatic stress disorder, unspecified; F41.9 Anxiety disorder, unspecified; F32.9 Major depressive disorder, single episode, unspecified; Z79.899 Other long term (current) drug therapy; Z92.21 Personal history of antineoplastic chemotherapy; Z92.3 Personal history of irradiation
CPT/HCPCS: 99214

== ENCOUNTER 2021-02-02 10:56 | Outpatient (CLI) | payer OTHER, SELFPAY ==
--- NOTE | 2021-02-02 | CT_ITS ---
WS: [id number] CT scan of the head, 02/02/2021 Clinical Data: [facility] Malignant Neoplasm of Brain Comparison: CT head, 05/15/2020. MRI of the head and brain, 08/29/2020. DLP: 1984.[address] scans at [facility] use at least one of these dose optimization techniques: automated e xposure control; mA and/or kV adjustment per patient size (includes targeted exams where dose is matc hed to clinical indication); or iterative reconstruction. Findings: The bilateral parietal lesions seen on the previous CT head are no longer present. The ventricular system is normal without shift. No recent infarct or hemorrhage is seen. There are no abnormal intracerebral masses. No abnormal contrast enhancement of any structure occurs. There are n o aneurysms. The cerebellum and brainstem are not remarkable. Bony windows of the skull and skull base show no fractures or erosions. The mastoid air cells, news internship al auditory canals, sella turcica, intraorbital contents, and paranasal sinuses are unremarkable. CT/CT head wo/w con [id number] Impression: 1. Negative for metastatic disease or enhancing lesions of the brain. 2. The bilateral parietal lesions are longer present.
[2021-02-02] MEDS: iohexol 350 mg/mL 100 mL Btl IV (11:33)
== END 2021-02-02 10:57 | disposition home or self-care (01) ==
PROVIDERS: PCP Emergency Medicine Emergency Medical Services; Visit Provider Internal Medicine Medical Oncology
DX: C79.31 Secondary malignant neoplasm of brain (principal)
CPT/HCPCS: 70470; Q9967

== ENCOUNTER 2021-02-17 13:34 | Outpatient (CLI) | payer OTHER, SELFPAY ==
--- NOTE | 2021-02-17 | CT_ITS ---
WS: [id number] CT CHEST, ABDOMEN AND PELVIS WITH CONTRAST. HISTORY: MALIGNANT NEOPLASM TECHNIQUE: Contiguous 5 mm axial imaging performed through the chest, abdomen and pelvis with IV cont rast, oral contrast has been provided. Coronal and sagittal reformats chest. Coronal and sagittal ref ormats through the abdomen and pelvis. All CT scans at [facility] use at least one of these d ose optimization techniques: automated exposure control; mA and/or kV adjustment per patient size (in cludes targeted exams where dose is matched to clinical indication); or iterative reconstruction. CONTRAST: Omnipaque 350; 95 mL IV. DLP: 2500.93 mGycm COMPARISON: 12/03/[address]: Hyperexpanded lungs. Parenchymal scarring and interstitial thickening in the medial RIGHT u pper lobe and the superior segment of the RIGHT lower lobe is again identified. There is been a mild progression of the interstitial and bronchovascular thickening. Subcarinal lymph node has increased i n size. Subcarinal lymph node is mildly hypervascular with lobulated contours measuring up to 2.4 cm. There has been slight increase in size of the LEFT paratracheal lymph nodes. Heart size is normal. N o pericardial effusion. Atherosclerosis within the aorta. Normal size pulmonary artery. Left-sided Me diport is present with tip over the distal SVC. No effusions. Abdomen CT: Blush-like area of enhancement along the periphery of the LEFT lobe of the liver consiste nt with a known cavernous hemangioma. No metastatic disease is identified. Normal portal vein. Gallbl adder is slightly contracted. Normal size spleen. Pancreas is atrophic with scattered calcifications probably from prior pancreatitis. No mass identified. No adrenal mass. Stable cystic masses within ea ch kidney. No solid mass or enlarging mass identified. Subcapsular calcification LEFT kidney is proba obed from an old hematoma. No obstruction. Endovascular aortic and iliac endograft is apparent. No adj acent hematoma. Stomach is markedly distended with fluid. Mild diffuse constipation. Numerous sigmoid diverticula wit hout diverticulitis. No ascites or adenopathy. Pelvic CT: Prostate gland is slightly enlarged encroaching towards the urinary bladder. No osteoblastic or osteolytic bone disease. Bone island in the RIGHT femoral head. Remote healed rib fractures in the posterior LEFT thorax. CT/CT chest abd pel w con* IMPRESSION: 1. Since the prior examination there has been a continued slight increase in s ize of subcarinal lymph node and new mildly prominent lymph nodes in the LEFT p aratracheal region. Interstitial thickening and bronchial wall thickening in th e medial RIGHT upper lobe and RIGHT lower lobe have mildly progressed. Recommen d follow-up PET/CT imaging for recurrent neoplasm. 2. No metastatic lesions within the liver or adrenal glands. 3. Aortoiliac endovascular graft is stable. 4. No ascites or adenopathy in the abdomen or pelvis.
[2021-02-17] MEDS: iohexol 300 mg/mL 50 mL Btl PO (15:32)
[2021-02-17] MEDS: iohexol 350 mg/mL 100 mL Btl IV (15:32)
== END 2021-02-17 13:35 | disposition home or self-care (01) ==
PROVIDERS: PCP Emergency Medicine Emergency Medical Services; Visit Provider Internal Medicine Medical Oncology
DX: C34.01 Malignant neoplasm of right main bronchus (principal); C34.12 Malignant neoplasm of upper lobe, left bronchus or lung
CPT/HCPCS: 71260; 74177; Q9967

== ENCOUNTER 2021-02-19 12:26 | Outpatient (CLI) | payer OTHER, SELFPAY ==
[2021-02-19 12:58] LABS: Basophils % 0.7 %; Eosinophils # 0.3 10^3/uL (0.0-0.8); Eosinophils % 5.4 %; Hematocrit 40.3 % (42.0-52.0); Hemoglobin 12.8 g/dL (11.7-16.6); Lymphocytes # 1.2 10^3/uL (0.8-4.8); Lymphocytes % 22.2 %; Mean Corpuscular HGB Conc 31.8 g/dL (30.0-36.0); Mean Corpuscular Hemoglobin 30.7 pg (28.0-34.0); Mean Corpuscular Volume 96.6 fl (80-94); Mean Platelet Volume 10.7 fL (7.4-10.4); Monocytes # 0.5 10^3/uL (0.2-0.9); Monocytes % 8.6 %; Neutrophils # 3.52 10^3/uL (1.8-7.7); Neutrophils % 62.9 %; Nucleated Red Blood Cells % 0 %; Platelet Count 146 10^3/cmm (130-400); Red Blood Count 4.17 10^6/uL (4.1-5.3); Red Cell Distribution Width 15.5 % (12.1-15.1); White Blood Count 5.6 10^3/uL (4.0-10.0)
[2021-02-19 13:28] LABS: Alanine Aminotransferase 6 U/L (0-41); Albumin Level 3.9 g/dL (3.5-5.2); Alkaline Phosphatase 66 IU/L (40-130); Anion Gap 17.7 (5-19); Aspartate Amino Transferase 14 U/L (0-40); Blood Urea Nitrogen 9 mg/dL (8-23); Calcium 8.1 mg/dL (8.5-10.5); Carbon Dioxide 22 mmol/L (22-29); Chloride 101 mmol/L (98-107); Globulin 3.6 g/dL (1.3-4.6); Glomerular Filtration Rate 96.4 mL/min (90-130); Glucose 137 mg/dL (65-115); Osmolality Calculated 285 mOsm/kg (285-295); Potassium 3.7 mmol/L (3.5-5.1); Sodium 137 mmol/L (136-145); Thyroid Stimulating Hormone 0.99 uIU/mL (0.27-4.20); Total Bilirubin 0.4 mg/dL (0.15-1.2); Total Protein 7.5 g/dL (6.6-8.7)
--- NOTE | 2021-02-21 13:11 | ONC FU_ITS ---
Dr. Grissom Patient Follow-Up Note Patient: Satish Fry Unit #: [id number]: 1955 Dicatated By: Gino Grissom M.D.Date of Visit:Feb 19, 2021 Onc Med Follow-up/Prog Note Chief Complaint: Lung cancer. History of Present Illness: This is a 65 year-old man with non-small cell lung cancer involving the perihilar region of the right lung, stage IIB (T2a, N1, M0) at initial diagnosis in August 2019. He had subsequent progression to stage IVB (M1c) with development of multiple brain metastases. 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 He has a prior history of non-small cell carcinoma of the left lung. On 09/04/2012 he had undergone left upper lobectomy with mediastinal lymphadenectomy for grade 3/4 adenocarcinoma, stage IB (T2a, N0, M0). The primary tumor measured 3.1 x 3.0 x 2.6 cm. There was no involvement in a total of 14 lymph nodes. I had seen him for medical oncology consultation on 09/28/2012. He received no further treatment, as there appeared to be no indication for postoperative chemotherapy or radiation. On 07/20/2019 he had presented to the emergency room with chest pain and shortness of breath. His CT pulmonary angiogram showed no evidence of pulmonary embolism. However, he was noted to have a 3.3 x 3.8 cm right hilar mass encasing the central right bronchopulmonary structures. There was invasion into the superior right pulmonary vein. There was additional subcarinal lymph node measuring 1.2 cm. Groundglass attenuation along the right minor fissure appeared compatible with either pneumonitis or lymphangitic spread of tumor. Staging PET/CT on 08/18/2019 showed perihilar mass in the right upper lobe measuring 2.8 cm in diameter with SUV 13.5, consistent with malignancy. A secondary right hilar lymph node measuring 1.4 x 2.5 cm with SUV 9.5, consistent with metastatic disease. The subcarinal lymph node did not demonstrate significant FDG activity and other mediastinal lymph nodes appeared radiographically benign and FDG negative. On 08/22/2019 he underwent bronchoscopy/EBUS with transbronchial needle aspiration biopsy of station 7 and station 10R lymph nodes. There were no endobronchial lesions identified. Pathology on the station 7 lymph node showed benign reactive lymph node with no evidence of dysplastic or neoplastic process. The 10R lymph node showed metastatic non-small cell carcinoma favoring squamous cell carcinoma. As his disease was deemed inoperable, he was recommended to undergo chemoradiation. He began radiation concurrently with weekly carboplatin/paclitaxel chemotherapy on 10/09/2019. His initial chemotherapy was complicated by neutropenia and by steroid intolerance, and with his further chemotherapy Abraxane was substituted for paclitaxel. He completed radiation on 11/20/2019 to a total dose of 6000 cGy. He received a total of 4 weekly chemotherapy infusions. His restaging chest CT on 12/24/2019 showed significant decrease in the right hilar mass, which at that point was hardly discernible. Subcarinal lymphadenopathy appeared unchanged. With that response, he then began maintenance immunotherapy with durvalumab. He began cycle 1 of durvalumab on 01/16/2020. He tolerated it without adverse effects, and he then continued treatment at 2-week intervals. CT pulmonary angiogram on 03/12/2020 showed no evidence of pulmonary embolus. There was stable bronchovascular thickening along the right hilum and there was stable subcarinal lymphadenopathy measuring 1.6 cm. There was no evidence of disease progression. He continued his maintenance immunotherapy. He received cycle 7 on 05/07/2020. On 05/15/2020 he presented to the emergency room with nausea/vomiting and visual changes. His head CT showed well circumscribed low-attenuation bilateral parietal lesions with surrounding edema, consistent with metastatic disease. The largest was on the left measuring 2.9 x 2.3 cm. The right parietal lesion measured 1.9 x 2.0 cm. Further evaluation with MRI on 05/15/2020 showed peripheral enhancing bilateral parietal lesions on the left measuring 2.8 x 2.9 cm and on the right measuring 1.9 x 1.6 cm. An additional 8 mm lesion was noted in the right posterior temporal lobe. The appearance was consistent with metastatic disease. He was deemed unsuitable for surgical resection. He was then seen by Dr. Robles for palliative radiation. He underwent SRS to all 3 lesions. The right posterior temporal lesion was treated on 05/26/2020 to a total dose of 2400 cGy. Treatment to the left parietal lesion was completed on 06/06/2020 to a dose of 3000 cGy administered in 10 fractions. Treatment to the right parietal lesion was completed on 06/18/2020 to a total dose of 3000 cGy administered in [address] scans on 07/28/2020 showed stable bronchovascular thickening along the right hilum, unchanged from the prior study. There was progressed subcarinal lymphadenopathy measuring 2.0 cm compared to 1.6 cm. There were no other findings of disease progression. Hazy groundglass opacities in the right upper lobe anteriorly appear to be most consistent with infectious or inflammatory change. Consolidative opacity or atelectasis in the right lower lobe medially along the right infrahilar lung measuring 1.6 cm appeared to be most likely due to treatment related changes, but the appearance was nonspecific. A noncalcified nodule at the right hemidiaphragm measuring 6 mm appeared stable. A cavernous hemangioma involving the left hepatic lobe appeared stable measuring 1.0 cm. Repeat head MRI on 08/29/2020 showed significant decrease in size of the left parietal metastasis measuring 1.4 x 0.9 cm and in the right parietal metastasis measuring 0.8 x 0.4 cm. There was also improvement in the associated edema. The previously described right parahippocampal gyrus enhancing lesion was noted to have completely resolved. There were no new enhancing lesions identified. His other medical illnesses include hypertension, dyslipidemia, and coronary artery disease with previous myocardial infarction. He has significant underlying COPD. 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 He also has degenerative arthritis and posttraumatic stress disorder with anxiety/depression. He has a history of smoking 2 packs of cigarettes daily for 50 years. INTERIM HISTORY: I had seen him for a follow-up visit on 09/08/2020. He had significant clinical improvement with the radiation. Given the MRI and CT findings, he then had further evaluation with next generation sequencing by liquid biopsy, and that study showed presence of an EGFR mutation, specifically a deletion involving exon 19 ([id number]). With that finding, he then began a trial of targeted therapy wtih osimertinib 80 mg daily on 10/21/2020. His repeat head CT on 02/02/2021 was negative for metastatic disease or enhancing lesions of the brain. Bilateral parietal lesions were no longer present. Restaging CT scans of the chest, abdomen, and pelvis on 02/17/2021 showed mild progression of interstitial thickening and bronchial wall thickening in the medial right upper lobe and right lower lobe. Also noted was a slight increase in the size of the enlarged subcarinal lymph node measuring 2.4 cm. There were new mildly prominent lymph nodes noted in the left paratracheal region. There was no evidence of metastatic disease in the abdomen/pelvis. He is seen for a follow-up visit. He has been feeling pretty good generally. He seems to be having no adverse effects with the osimertinib. He says his energy is not particularly good in the mornings, but he is still able to do light work. ECOG score is 1. His appetite comes and goes. His weight is stable. He does not have fever or night sweats. He has been having sinus congestion. He has not had sore mouth or throat. He has a cough, but lately it has been a little better. He does get short of breath with activity. He does not complain of chest pain. He has no GI or complaints. In particular, he has not been having any diarrhea. He has generalized joint pain, which is the same. He does not complain of headache or dizziness, and he has no focal neurologic symptoms. He complains that he has dry skin, but he has not had any skin rash. Medications: Albuterol Sulfate 2.5 mg (of 2.5 mg/0.5mL) Nebulization solution Inhalation q 6 hours PRN, amLODIPine Besylate 1 Tablet (of 5 mg) Oral daily, Asmanex HFA 2 Inhalation Aerosol Inhalation daily, Aspirin 1 Tablet (of 81 mg) Tablet, enteric coated Oral daily, Benadryl Allergy 1 Tablet (of 25 mg) Tablet Oral daily PRN, Cetirizine HCl 1 Tablet (of 10 mg) Oral daily, Diclofenac 1 Capsule Oral daily PRN, Fish Oil 1 Capsule Oral daily, Fluticasone Propionate 1 [place](s) (of 50 mcg/act) Suspension Nasal b.i.d., Gabapentin 1 (300 mg) Capsule Oral t.i.d., guaiFENesin 1 Tablet (of 400 mg) Oral b.i.d. PRN, metFORMIN HCl Tablet Oral, oxyCODONE HCl 1 Tablet (of 10 mg) Oral t.i.d. PRN, Pantoprazole Sodium 1 Tablet (of 40 mg) Tablet, enteric coated Oral daily, ProAir HFA 2 Puff(s) (of 108 (90 base) mcg/act) Aerosol, solution Inhalation four times a day PRN, Stiolto Respimat 2 Puff(s) (of 2.5-2.5 mcg/act) Aerosol, solution Inhalation daily, Tamsulosin HCl 1 Capsule (of 0.4 mg) Oral daily, Vitamin D 2 Capsule Oral daily Allergies: PENICILLIN and Statins. Vital Signs: Performed on Feb 19, 2021 16:15 Height - 68.50 in Weight - 178.8 lbs BSA - 1.96 sq.m BMI - 26.79 Temperature - 98.4 F Pulse - 106 /min (HIGH) Respiration - 18 /min BP - 135/74 mm(hg) O2 Sat - 92 % (LOW) Pain - 4 Fatigue - 5 Physical Examination: Constitutional - He appears somewhat weak generally, Eyes - Sclerae nonicteric. Conjunctivae clear, ENMT - No lesions noted in the oral cavity, Hematologic/Lymphatic - No cervical, clavicular, or axillary adenopathy, Respiratory - Lungs show slightly coarse breath sounds. There is diminished air movement bilaterally, worse on the right, Cardiovascular - Heart rhythm is regular. There is no murmur, gallop, or rub noted, Abdomen - Soft. Liver and spleen are not enlarged. There is no abdominal mass or ascites noted and there is no inguinal adenopathy, Extremities - No edema, Integumentary - There is no skin eruption, Neurologic - No focal neurologic deficits noted. Lab/Imaging: Test performed on Feb 19, 2021 12:47 Sodium 137 mmol/L TSH 0.99 uIU/mL Potassium 3.7 mmol/L Chloride 101 mmol/L CO2 22 mmol/L Anion Gap 17.7 BUN 9 mg/dL Creatinine 0.8 mg/dL Cr Clearance (Est) 102.7900 mL/min eGFR 96.4 mL/min Glucose 137 mg/dL Osmolality - Calculated 285 mOsm/kg Calcium 8.1 mg/dL Protein, Total 7.5 g/dL Albumin 3.9 g/dL Globulin 3.6 g/dL Bilirubin, Total 0.4 mg/dL ALT (SGPT) 6 U/L AST (SGOT) 14 U/L Alkaline Phosphatase 66 IU/L WBC 5.6 10 3/uL RBC 4.17 10 6/uL HGB 12.8 g/dL HCT 40.3 % MCV 96.6 fl MCH 30.7 pg MCHC 31.8 g/dL RDW 15.5 % Platelet Count 146 10 3/cmm MPV 10.7 fL Neutrophils 3.52 10 3/uL Lymphocytes 1.2 10 3/uL Monocytes 0.5 10 3/uL Eosinophils 0.3 10 3/uL Basophils 0.0 10 3/uL Neutrophil % 62.9 % Lymphocyte % 22.2 % Monocyte % 8.6 % Eosinophil % 5.4 % Basophils % 0.7 % NRBC % 0 % Problem List: 1. Non-small cell carcinoma involving her right hilar mass. Pathology favored squamous cell carcinoma. It appeared to be a new primary malignancy. By PET/CT there appeared to be additional right hilar adenopathy so that by clinical evaluation his disease appeared to be stage IIB (T2a, N1, M0) at initial diagnosis. He had subsequent progression to stage IV with development of multiple metastatic lesions in the brain. On next generation sequencing, his tumor was found to harbor an EGFR mutation, specifically in exon 19 deletion. 2. He has a history of grade 3/4 adenocarcinoma involving the upper lobe of the left lung, stage IB (T2a, N0, M0), for which he underwent thoracotomy with left upper lobectomy and mediastinal lymphadenectomy on 09/04/2012. 3. COPD. 4. Hypertension. 5. Dyslipidemia. 6. Coronary artery disease with previous myocardial infarction. 7. Degenerative arthritis. 8. History of treated hepatitis C. 9. History of abdominal aortic aneurysm for which he underwent endograft repair in 2010. 10. Posttraumatic stress disorder with anxiety/depression. Problems Addressed with this Encounter and Plan: Patient with non-small cell carcinoma involving the perihilar region of the right lung. Pathology favored squamous cell carcinoma. By PET/CT there appeared to be additional right hilar adenopathy so that by clinical evaluation his disease appeared to be stage IIB (T2a, N1, M0). His disease was deemed inoperable. As such, he was treated with radiation concurrently with weekly carboplatin/paclitaxel chemotherapy. His chemotherapy was complicated by neutropenia and Abraxane was substituted for the paclitaxel due to steroid intolerance. He completed radiation on 11/20/2019 to a total dose of 6000 cGy. He received a total of 4 weekly chemotherapy infusions. He had a very good response by follow-up chest CT. On 01/16/2020 he began maintenance immunotherapy with durvalumab. He tolerated the initial infusion well, and he then continued treatment at 2-week intervals. He received cycle 7 of durvalumab on 05/07/2020. His further treatment was put on hold, as he subsequently was found to have progression to stage IV disease with brain MRI on 05/19/2020 showing right and left parietal lobe and right posterior temporal lobe metastatic lesions. He was deemed unsuitable for surgical resection. He underweint SRS to all 3 sites of involvement, completed in June 2020. He has had a very good response by follow-up MRI. In the meantime, his restaging showed a slight increase in the size of a subcarinal lymph node. There was otherwise no obvious disease progression. Changes in the right lung were felt to be most likely infectious/inflammatory and/or treatment related. With those findings he then had further evaluation with next generation sequencing by liquid biopsy, and he was found to have an EGFR mutation, specifically an exon 19 deletion. On 10/21/2020 he began a trial of targeted therapy with osimertinib 80 mg daily. Thus far he has been tolerating the osimertinib well. He does report having dry skin, but he seems to be having no other adverse effects. His restaging head CT in January showed no evidence of metastatic disease. His restaging chest CT on 02/17/2021 it appeared to show slight progression in subcarinal and left paratracheal lymphadenopathy and possibly in the hilar area of the right lung. However, with those changes being very minimal, he will continue targeted therapy with osimertinib 80 mg daily. He will be scheduled for a follow-up visit in 6 weeks. Signed By: Gino Grissom M.D. <<Signature on File>>
== END 2021-02-19 12:27 | disposition home or self-care (01) ==
LOC: ONCMED 12:29
PROVIDERS: PCP Emergency Medicine Emergency Medical Services; Visit Provider Internal Medicine Medical Oncology
DX: C34.01 Malignant neoplasm of right main bronchus (principal); Z79.811 Long term (current) use of aromatase inhibitors; C79.31 Secondary malignant neoplasm of brain; Z85.118 Personal history of other malignant neoplasm of bronchus and lung; Z90.2 Acquired absence of lung [part of]; J44.9 Chronic obstructive pulmonary disease, unspecified; I10 Essential (primary) hypertension; E78.5 Hyperlipidemia, unspecified; I25.10 Atherosclerotic heart disease of native coronary artery without angina pectoris; M19.90 Unspecified osteoarthritis, unspecified site; Z86.19 Personal history of other infectious and parasitic diseases; F43.10 Post-traumatic stress disorder, unspecified
CPT/HCPCS: 36591; 80053; 84443; 85025; 99214

== ENCOUNTER 2021-04-09 13:20 | Outpatient (CLI) | payer OTHER, SELFPAY ==
[2021-04-09 13:51] LABS: Basophils % 0.4 %; Eosinophils # 0.4 10^3/uL (0.0-0.8); Eosinophils % 5.6 %; Hematocrit 42.4 % (42.0-52.0); Hemoglobin 13.5 g/dL (11.7-16.6); Lymphocytes # 1.1 10^3/uL (0.8-4.8); Mean Corpuscular HGB Conc 31.8 g/dL (30.0-36.0); Mean Corpuscular Hemoglobin 31.3 pg (28.0-34.0); Mean Corpuscular Volume 98.1 fl (80-94); Mean Platelet Volume 10.6 fL (7.4-10.4); Monocytes # 0.6 10^3/uL (0.2-0.9); Monocytes % 7.9 %; Neutrophils # 5.04 10^3/uL (1.8-7.7); Neutrophils % 70.8 %; Nucleated Red Blood Cells % 0 %; Platelet Count 145 10^3/cmm (130-400); Red Blood Count 4.32 10^6/uL (4.1-5.3); Red Cell Distribution Width 13.7 % (12.1-15.1); White Blood Count 7.1 10^3/uL (4.0-10.0)
[2021-04-09 14:23] LABS: Alanine Aminotransferase 7 U/L (0-41); Albumin Level 4.2 g/dL (3.5-5.2); Alkaline Phosphatase 75 IU/L (40-130); Aspartate Amino Transferase 16 U/L (0-40); Blood Urea Nitrogen 12 mg/dL (8-23); Calcium 9.5 mg/dL (8.5-10.5); Carbon Dioxide 23 mmol/L (22-29); Chloride 102 mmol/L (98-107); Globulin 3.7 g/dL (1.3-4.6); Glomerular Filtration Rate 74.5 mL/min (90-130); Glucose 155 mg/dL (65-115); Osmolality Calculated 289 mOsm/kg (285-295); Sodium 138 mmol/L (136-145); Total Bilirubin 0.4 mg/dL (0.15-1.2); Total Protein 7.9 g/dL (6.6-8.7)
--- NOTE | 2021-04-12 13:35 | ONC FU_ITS ---
Dr. Grissom Patient Follow-Up Note Patient: Satish Fry Unit #: [id number]: [id number] Dicatated By: Gino Grissom M.D.Date of Visit:Apr 09, 2021 Onc Med Follow-up/Prog Note Chief Complaint: Lung cancer. History of Present Illness: This is a 65 year-old man with non-small cell lung cancer involving the perihilar region of the right lung, stage IIB (T2a, N1, M0) at initial diagnosis in August 2019. He had subsequent progression to stage IVB (M1c) with development of multiple brain metastases. 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 He has a prior history of non-small cell carcinoma of the left lung. On 09/04/2012 he had undergone left upper lobectomy with mediastinal lymphadenectomy for grade 3/4 adenocarcinoma, stage IB (T2a, N0, M0). The primary tumor measured 3.1 x 3.0 x 2.6 cm. There was no involvement in a total of 14 lymph nodes. I had seen him for medical oncology consultation on 09/28/2012. He received no further treatment, as there appeared to be no indication for postoperative chemotherapy or radiation. On 07/20/2019 he had presented to the emergency room with chest pain and shortness of breath. His CT pulmonary angiogram showed no evidence of pulmonary embolism. However, he was noted to have a 3.3 x 3.8 cm right hilar mass encasing the central right bronchopulmonary structures. There was invasion into the superior right pulmonary vein. There was additional subcarinal lymph node measuring 1.2 cm. Groundglass attenuation along the right minor fissure appeared compatible with either pneumonitis or lymphangitic spread of tumor. Staging PET/CT on 08/18/2019 showed perihilar mass in the right upper lobe measuring 2.8 cm in diameter with SUV 13.5, consistent with malignancy. A secondary right hilar lymph node measuring 1.4 x 2.5 cm with SUV 9.5, consistent with metastatic disease. The subcarinal lymph node did not demonstrate significant FDG activity and other mediastinal lymph nodes appeared radiographically benign and FDG negative. On 08/22/2019 he underwent bronchoscopy/EBUS with transbronchial needle aspiration biopsy of station 7 and station 10R lymph nodes. There were no endobronchial lesions identified. Pathology on the station 7 lymph node showed benign reactive lymph node with no evidence of dysplastic or neoplastic process. The 10R lymph node showed metastatic non-small cell carcinoma favoring squamous cell carcinoma. As his disease was deemed inoperable, he was recommended to undergo chemoradiation. He began radiation concurrently with weekly carboplatin/paclitaxel chemotherapy on 10/09/2019. His initial chemotherapy was complicated by neutropenia and by steroid intolerance, and with his further chemotherapy Abraxane was substituted for paclitaxel. He completed radiation on 11/20/2019 to a total dose of 6000 cGy. He received a total of 4 weekly chemotherapy infusions. His restaging chest CT on 12/24/2019 showed significant decrease in the right hilar mass, which at that point was hardly discernible. Subcarinal lymphadenopathy appeared unchanged. With that response, he then began maintenance immunotherapy with durvalumab. He began cycle 1 of durvalumab on 01/16/2020. He tolerated it without adverse effects, and he then continued treatment at 2-week intervals. CT pulmonary angiogram on 03/12/2020 showed no evidence of pulmonary embolus. There was stable bronchovascular thickening along the right hilum and there was stable subcarinal lymphadenopathy measuring 1.6 cm. There was no evidence of disease progression. He continued his maintenance immunotherapy. He received cycle 7 on 05/07/2020. On 05/15/2020 he presented to the emergency room with nausea/vomiting and visual changes. His head CT showed well circumscribed low-attenuation bilateral parietal lesions with surrounding edema, consistent with metastatic disease. The largest was on the left measuring 2.9 x 2.3 cm. The right parietal lesion measured 1.9 x 2.0 cm. Further evaluation with MRI on 05/15/2020 showed peripheral enhancing bilateral parietal lesions on the left measuring 2.8 x 2.9 cm and on the right measuring 1.9 x 1.6 cm. An additional 8 mm lesion was noted in the right posterior temporal lobe. The appearance was consistent with metastatic disease. He was deemed unsuitable for surgical resection. He was then seen by Dr. Robles for palliative radiation. He underwent SRS to all 3 lesions. The right posterior temporal lesion was treated on 05/26/2020 to a total dose of 2400 cGy. Treatment to the left parietal lesion was completed on 06/06/2020 to a dose of 3000 cGy administered in 10 fractions. Treatment to the right parietal lesion was completed on 06/18/2020 to a total dose of 3000 cGy administered in [address] scans on 07/28/2020 showed stable bronchovascular thickening along the right hilum, unchanged from the prior study. There was progressed subcarinal lymphadenopathy measuring 2.0 cm compared to 1.6 cm. There were no other findings of disease progression. Hazy groundglass opacities in the right upper lobe anteriorly appear to be most consistent with infectious or inflammatory change. Consolidative opacity or atelectasis in the right lower lobe medially along the right infrahilar lung measuring 1.6 cm appeared to be most likely due to treatment related changes, but the appearance was nonspecific. A noncalcified nodule at the right hemidiaphragm measuring 6 mm appeared stable. A cavernous hemangioma involving the left hepatic lobe appeared stable measuring 1.0 cm. Repeat head MRI on 08/29/2020 showed significant decrease in size of the left parietal metastasis measuring 1.4 x 0.9 cm and in the right parietal metastasis measuring 0.8 x 0.4 cm. There was also improvement in the associated edema. The previously described right parahippocampal gyrus enhancing lesion was noted to have completely resolved. There were no new enhancing lesions identified. His other medical illnesses include hypertension, dyslipidemia, and coronary artery disease with previous myocardial infarction. He has significant underlying COPD. 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 He also has degenerative arthritis and posttraumatic stress disorder with anxiety/depression. He has a history of smoking 2 packs of cigarettes daily for 50 years. INTERIM HISTORY: I had seen him for a follow-up visit on 09/08/2020. He had significant clinical improvement with the radiation. Given the MRI and CT findings, he then had further evaluation with next generation sequencing by liquid biopsy, and that study showed presence of an EGFR mutation, specifically a deletion involving exon 19 ([id number]). With that finding, he then began a trial of targeted therapy wtih osimertinib 80 mg daily on 10/21/2020. His repeat head CT on 02/02/2021 was negative for metastatic disease or enhancing lesions of the brain. Bilateral parietal lesions were no longer present. Restaging CT scans of the chest, abdomen, and pelvis on 02/17/2021 showed mild progression of interstitial thickening and bronchial wall thickening in the medial right upper lobe and right lower lobe. Also noted was a slight increase in the size of the enlarged subcarinal lymph node measuring 2.4 cm. There were new mildly prominent lymph nodes noted in the left paratracheal region. There was no evidence of metastatic disease in the abdomen/pelvis. In the setting of minimal disease progression, he continued targeted therapy with osimertinib. He is seen for a follow-up visit. He has been feeling pretty good generally. His energy lately has been a little better. He is able to do light work. ECOG score is 1. Appetite also has improved somewhat. He has no fever or night sweats. He has some sinus drainage. He has not had sore mouth or throat. He has normal cough. He is sometimes short of breath, but his breathing is not too bad. He has not had chest pain. He has no GI or complaints. He has generalized joint pain, which is chronic. He does not complain of headache or dizziness. He has no focal neurologic symptoms. Medications: Albuterol Sulfate 2.5 mg (of 2.5 mg/0.5mL) Nebulization solution Inhalation q 6 hours PRN, amLODIPine Besylate 1 Tablet (of 5 mg) Oral daily, Asmanex HFA 2 Inhalation Aerosol Inhalation daily, Aspirin 1 Tablet (of 81 mg) Tablet, enteric coated Oral daily, Benadryl Allergy 1 Tablet (of 25 mg) Tablet Oral daily PRN, Cetirizine HCl 1 Tablet (of 10 mg) Oral daily, Diclofenac 1 Capsule Oral daily PRN, Fish Oil 1 Capsule Oral daily, Fluticasone Propionate 1 [place](s) (of 50 mcg/act) Suspension Nasal b.i.d., Gabapentin 1 (300 mg) Capsule Oral t.i.d., guaiFENesin 1 Tablet (of 400 mg) Oral b.i.d. PRN, metFORMIN HCl Tablet Oral, oxyCODONE HCl 1 Tablet (of 10 mg) Oral t.i.d. PRN, Pantoprazole Sodium 1 Tablet (of 40 mg) Tablet, enteric coated Oral daily, ProAir HFA 2 Puff(s) (of 108 (90 base) mcg/act) Aerosol, solution Inhalation four times a day PRN, Stiolto Respimat 2 Puff(s) (of 2.5-2.5 mcg/act) Aerosol, solution Inhalation daily, Tamsulosin HCl 1 Capsule (of 0.4 mg) Oral daily, Vitamin D 2 Capsule Oral daily Allergies: PENICILLIN and Statins. Vital Signs: Performed on Apr 09, 2021 16:33 Height - 68.50 in Weight - 177.8 lbs (LOW) BSA - 1.95 sq.m BMI - 26.64 Temperature - 98.0 F (LOW) Pulse - 101 /min (HIGH) Respiration - 18 /min BP - 138/74 mm(hg) O2 Sat - 92 % (LOW) Pain - 0 Fatigue - 4 Physical Examination: Constitutional - He appears somewhat weak generally, Eyes - Sclerae nonicteric. Conjunctivae clear, ENMT - No lesions noted in the oral cavity, Hematologic/Lymphatic - No cervical, clavicular, or axillary adenopathy, Respiratory - Lungs show diminished air movement bilaterally, worse on the right. Breath sounds are coarse, and there are mild expiratory rhonchi, Cardiovascular - Heart rhythm is regular. There is no murmur, gallop, or rub noted, Abdomen - Soft. Liver and spleen are not enlarged. There is no abdominal mass or ascites noted and there is no inguinal adenopathy, Extremities - No edema, Integumentary - There is no skin eruption, Neurologic - No focal neurologic deficits noted. Lab/Imaging: Test performed on Apr 09, 2021 13:40 Sodium 138 mmol/L Potassium 4.0 mmol/L Chloride 102 mmol/L CO2 23 mmol/L Anion Gap 17.0 BUN 12 mg/dL Creatinine 1.0 mg/dL Cr Clearance (Est) 81.77 mL/min eGFR 74.5 mL/min Glucose 155 mg/dL Osmolality - Calculated 289 mOsm/kg Calcium 9.5 mg/dL Protein, Total 7.9 g/dL Albumin 4.2 g/dL Globulin 3.7 g/dL Bilirubin, Total 0.4 mg/dL ALT (SGPT) 7 U/L AST (SGOT) 16 U/L Alkaline Phosphatase 75 IU/L WBC 7.1 10 3/uL RBC 4.32 10 6/uL HGB 13.5 g/dL HCT 42.4 % MCV 98.1 fl MCH 31.3 pg MCHC 31.8 g/dL RDW 13.7 % Platelet Count 145 10 3/cmm MPV 10.6 fL Neutrophils 5.04 10 3/uL Lymphocytes 1.1 10 3/uL Monocytes 0.6 10 3/uL Eosinophils 0.4 10 3/uL Basophils 0.0 10 3/uL Neutrophil % 70.8 % Lymphocyte % 15.0 % Monocyte % 7.9 % Eosinophil % 5.6 % Basophils % 0.4 % NRBC % 0 % Problem List: 1. Non-small cell carcinoma involving her right hilar mass. Pathology favored squamous cell carcinoma. It appeared to be a new primary malignancy. By PET/CT there appeared to be additional right hilar adenopathy so that by clinical evaluation his disease appeared to be stage IIB (T2a, N1, M0) at initial diagnosis. He had subsequent progression to stage IV with development of multiple metastatic lesions in the brain. On next generation sequencing, his tumor was found to harbor an EGFR mutation, specifically in exon 19 deletion. 2. He has a history of grade 3/4 adenocarcinoma involving the upper lobe of the left lung, stage IB (T2a, N0, M0), for which he underwent thoracotomy with left upper lobectomy and mediastinal lymphadenectomy on 09/04/2012. 3. COPD. 4. Hypertension. 5. Dyslipidemia. 6. Coronary artery disease with previous myocardial infarction. 7. Degenerative arthritis. 8. History of treated hepatitis C. 9. History of abdominal aortic aneurysm for which he underwent endograft repair in 2010. 10. Posttraumatic stress disorder with anxiety/depression. Problems Addressed with this Encounter and Plan: Patient with non-small cell carcinoma involving the perihilar region of the right lung. Pathology favored squamous cell carcinoma. By PET/CT there appeared to be additional right hilar adenopathy so that by clinical evaluation his disease appeared to be stage IIB (T2a, N1, M0). His disease was deemed inoperable. As such, he was treated with radiation concurrently with weekly carboplatin/paclitaxel chemotherapy. His chemotherapy was complicated by neutropenia and Abraxane was substituted for the paclitaxel due to steroid intolerance. He completed radiation on 11/20/2019 to a total dose of 6000 cGy. He received a total of 4 weekly chemotherapy infusions. He had a very good response by follow-up chest CT. On 01/16/2020 he began maintenance immunotherapy with durvalumab. He tolerated the initial infusion well, and he then continued treatment at 2-week intervals. He received cycle 7 of durvalumab on 05/07/2020. His further treatment was put on hold, as he subsequently was found to have progression to stage IV disease with brain MRI on 05/19/2020 showing right and left parietal lobe and right posterior temporal lobe metastatic lesions. He was deemed unsuitable for surgical resection. He underweint SRS to all 3 sites of involvement, completed in June 2020. He has had a very good response by follow-up MRI. In the meantime, his restaging showed a slight increase in the size of a subcarinal lymph node. There was otherwise no obvious disease progression. Changes in the right lung were felt to be most likely infectious/inflammatory and/or treatment related. With those findings he then had further evaluation with next generation sequencing by liquid biopsy, and he was found to have an EGFR mutation, specifically an exon 19 deletion. On 10/21/2020 he began a trial of targeted therapy with osimertinib 80 mg daily. Thus far during follow-up he has been tolerating the osimertinib with minimal toxicities. His restaging chest CT on 02/17/2021 appeared to show slight progression in subcarinal and left paratracheal lymphadenopathy and possibly in the hilar area of the right lung. However, with those changes being very minimal, he has continued targeted therapy with osimertinib. Since then clinical status has remained stable. Overall, he is doing well clinically. He continues osimertinib 80 mg daily. He will be scheduled for a follow-up visit in 6 weeks. He will have restaging CT of the chest and head MRI prior to that visit. Signed By: Gino Grissom M.D. <<Signature on File>>
== END 2021-04-09 13:21 | disposition home or self-care (01) ==
LOC: ONCMED 13:23
PROVIDERS: PCP Emergency Medicine Emergency Medical Services; Visit Provider Internal Medicine Medical Oncology
DX: C34.01 Malignant neoplasm of right main bronchus (principal); C79.31 Secondary malignant neoplasm of brain; J44.9 Chronic obstructive pulmonary disease, unspecified; I10 Essential (primary) hypertension; E78.5 Hyperlipidemia, unspecified; I25.10 Atherosclerotic heart disease of native coronary artery without angina pectoris; I25.2 Old myocardial infarction; M19.90 Unspecified osteoarthritis, unspecified site; F43.10 Post-traumatic stress disorder, unspecified; F41.9 Anxiety disorder, unspecified; F32.A Depression, unspecified; Z86.19 Personal history of other infectious and parasitic diseases; Z86.79 Personal history of other diseases of the circulatory system; Z79.899 Other long term (current) drug therapy
CPT/HCPCS: 36591; 80053; 85025; 99214

== ENCOUNTER 2021-04-24 08:28 | Outpatient (CLI) | payer OTHER, SELFPAY ==
--- NOTE | 2021-04-24 08:34 | CTR_ITS ---
PROCEDURE INFORMATION: Exam: CT Chest With Contrast; Diagnostic Exam date and time: 04/24/2021 8:49 AM Age: 65 years old Clinical indication: Condition or disease; Other: Lung cancer; Prior surgery; Surgery type: Left lobectomy; Additional info: Lung cancer, mob TECHNIQUE: Imaging protocol: Diagnostic computed tomography of the chest with contrast. Radiation optimization: All CT scans at this facility use at least one of these dose optimization techniques: automated exposure control; mA and/or kV adjustment per patient size (includes targeted exams where dose is matched to clinical indication); or iterative reconstruction. Contrast material: OMNI 300; Contrast volume: 95 ml; Contrast route: INTRAVENOUS (IV); COMPARISON: CT chest abd pel w con* 02/17/2021 2:46 PM RADIATION DOSE METRICS: Total DLP (mGy-cm): 789.88 FINDINGS: Tubes, catheters and devices: Stable [id number]. Multiple clips by the right hilum which are stable. Clips by the left hilum are stable.. Lungs: Stable bronchiectasis with infiltrate/consolidation involving medial aspect of the right lung possibly related to a radiation therapy in this needs to be clinically correlated. Pleural spaces: Unremarkable. No pneumothorax. No pleural effusion. Heart: Unremarkable. No cardiomegaly. No pericardial effusion. Aorta: Aortic stent graft incompletely visualized. Lymph nodes: Stable subcarinal lymph node. Stable mediastinal adenopathy. Kidneys and ureters: Stable right renal cyst. Calcified collection peripherally involving the left kidney. This is incompletely visualized. Bones/joints: Stable spine. Soft tissues: Unremarkable. Other findings: Slight increase in suspected scarring involving the left base just above the hemidiaphragm. CT/CT chest w con* [id number] IMPRESSION: 1. No change in the right lung and mediastinum. 2. Slight worsening suspected scarring, postoperative or post radiation therapy changes in left base.
[2021-04-24] MEDS: iohexol 300 mg/mL 100 mL Btl IV (08:56)
== END 2021-04-24 08:29 | disposition home or self-care (01) ==
LOC: RAD 08:28
PROVIDERS: PCP Emergency Medicine Emergency Medical Services; Visit Provider Internal Medicine Medical Oncology
DX: C34.12 Malignant neoplasm of upper lobe, left bronchus or lung (principal); C34.01 Malignant neoplasm of right main bronchus; C79.31 Secondary malignant neoplasm of brain
CPT/HCPCS: 71260

== ENCOUNTER 2021-05-15 13:29 | Outpatient (CLI) | payer OTHER, SELFPAY ==
--- NOTE | 2021-05-15 13:52 | CT_ITS ---
WS: [id number] CT HEAD TECHNIQUE: Noncontrast and contrast-enhanced CT of the head. CLINICAL INFORMATION: LUNG CANCER/BRAIN METS COMPARISON: CT February 02, 2021 and MRI August 29, 2020 DLP: 2097.[address] scans at [facility] use at least one of these dose optimization techniques: automated e xposure control; mA and/or kV adjustment per patient size (includes targeted exams where dose is matc hed to clinical indication); or iterative reconstruction. FINDINGS: No evidence of intracranial hemorrhage or mass effect. Ventricular system and basal cisterns are rosenthal nt. Mild small vessel changes. Mild parenchymal volume loss. Intracranial vascular calcification. [place] air cells well aerated. Paranasal sinuses are well aerated. Chronic compression of the RIGHT fro ntal sinus unchanged. Evidence of prior treated intracranial metastatic disease in the parietal lobes . Mild encephalomalacia in these regions. No abnormal intracranial enhancement. No evidence of enhancing intracranial metastatic disease. CT/CT head wo/w con [id number] IMPRESSION: No evidence of enhancing intracranial metastatic disease.
[2021-05-15] MEDS: iohexol 300 mg/mL 100 mL Btl IV (14:30)
== END 2021-05-15 13:30 | disposition home or self-care (01) ==
LOC: RAD 13:32
PROVIDERS: PCP Emergency Medicine Emergency Medical Services; Visit Provider Internal Medicine Medical Oncology
DX: C34.12 Malignant neoplasm of upper lobe, left bronchus or lung (principal)
CPT/HCPCS: 70470

== ENCOUNTER 2021-05-21 11:17 | Outpatient (CLI) | payer OTHER, SELFPAY ==
[2021-05-21 11:42] LABS: Basophils % 0.5 %; Eosinophils # 0.1 10^3/uL (0.0-0.8); Eosinophils % 3.4 %; Hematocrit 40.3 % (42.0-52.0); Hemoglobin 13.1 g/dL (11.7-16.6); Lymphocytes # 0.9 10^3/uL (0.8-4.8); Lymphocytes % 41.9 %; Mean Corpuscular HGB Conc 32.5 g/dL (30.0-36.0); Mean Corpuscular Volume 95.5 fl (80-94); Mean Platelet Volume 10.3 fL (7.4-10.4); Monocytes # 0.3 10^3/uL (0.2-0.9); Monocytes % 13.3 %; Neutrophils % 40.9 %; Nucleated Red Blood Cells % 0 %; Platelet Count 125 10^3/cmm (130-400); Red Blood Count 4.22 10^6/uL (4.1-5.3); Red Cell Distribution Width 13.2 % (12.1-15.1)
[2021-05-21 11:50] LABS: Neutrophils # 0.83 10^3/uL (1.8-7.7)
[2021-05-21 12:00] LABS: Alanine Aminotransferase 11 U/L (0-41); Albumin Level 3.9 g/dL (3.5-5.2); Alkaline Phosphatase 69 IU/L (40-130); Anion Gap 15.6 (5-19); Aspartate Amino Transferase 22 U/L (0-40); Blood Urea Nitrogen 14 mg/dL (8-23); Calcium 8.6 mg/dL (8.5-10.5); Carbon Dioxide 25 mmol/L (22-29); Chloride 96 mmol/L (98-107); Globulin 3.4 g/dL (1.3-4.6); Glomerular Filtration Rate 60.4 mL/min (90-130); Glucose 179 mg/dL (65-115); Osmolality Calculated 281 mOsm/kg (285-295); Potassium 3.6 mmol/L (3.5-5.1); Sodium 133 mmol/L (136-145); Total Bilirubin 0.2 mg/dL (0.15-1.2); Total Protein 7.3 g/dL (6.6-8.7)
--- NOTE | 2021-05-24 14:59 | ONC FU_ITS ---
Dr. Grissom Patient Follow-Up Note Patient: Satish Fry Unit #: [id number]: [id number] Dicatated By: Gino Grissom M.D.Date of Visit:May 21, 2021 Onc Med Follow-up/Prog Note Chief Complaint: Lung cancer. History of Present Illness: This is a 65 year-old man with non-small cell lung cancer involving the perihilar region of the right lung, stage IIB (T2a, N1, M0) at initial diagnosis in August 2019. He had subsequent progression to stage IVB (M1c) with development of multiple brain metastases. 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 He has a prior history of non-small cell carcinoma of the left lung. On 09/04/2012 he had undergone left upper lobectomy with mediastinal lymphadenectomy for grade 3/4 adenocarcinoma, stage IB (T2a, N0, M0). The primary tumor measured 3.1 x 3.0 x 2.6 cm. There was no involvement in a total of 14 lymph nodes. I had seen him for medical oncology consultation on 09/28/2012. He received no further treatment, as there appeared to be no indication for postoperative chemotherapy or radiation. On 07/20/2019 he had presented to the emergency room with chest pain and shortness of breath. His CT pulmonary angiogram showed no evidence of pulmonary embolism. However, he was noted to have a 3.3 x 3.8 cm right hilar mass encasing the central right bronchopulmonary structures. There was invasion into the superior right pulmonary vein. There was additional subcarinal lymph node measuring 1.2 cm. Groundglass attenuation along the right minor fissure appeared compatible with either pneumonitis or lymphangitic spread of tumor. Staging PET/CT on 08/18/2019 showed perihilar mass in the right upper lobe measuring 2.8 cm in diameter with SUV 13.5, consistent with malignancy. A secondary right hilar lymph node measuring 1.4 x 2.5 cm with SUV 9.5, consistent with metastatic disease. The subcarinal lymph node did not demonstrate significant FDG activity and other mediastinal lymph nodes appeared radiographically benign and FDG negative. On 08/22/2019 he underwent bronchoscopy/EBUS with transbronchial needle aspiration biopsy of station 7 and station 10R lymph nodes. There were no endobronchial lesions identified. Pathology on the station 7 lymph node showed benign reactive lymph node with no evidence of dysplastic or neoplastic process. The 10R lymph node showed metastatic non-small cell carcinoma favoring squamous cell carcinoma. As his disease was deemed inoperable, he was recommended to undergo chemoradiation. He began radiation concurrently with weekly carboplatin/paclitaxel chemotherapy on 10/09/2019. His initial chemotherapy was complicated by neutropenia and by steroid intolerance, and with his further chemotherapy Abraxane was substituted for paclitaxel. He completed radiation on 11/20/2019 to a total dose of 6000 cGy. He received a total of 4 weekly chemotherapy infusions. His restaging chest CT on 12/24/2019 showed significant decrease in the right hilar mass, which at that point was hardly discernible. Subcarinal lymphadenopathy appeared unchanged. With that response, he then began maintenance immunotherapy with durvalumab. He began cycle 1 of durvalumab on 01/16/2020. He tolerated it without adverse effects, and he then continued treatment at 2-week intervals. CT pulmonary angiogram on 03/12/2020 showed no evidence of pulmonary embolus. There was stable bronchovascular thickening along the right hilum and there was stable subcarinal lymphadenopathy measuring 1.6 cm. There was no evidence of disease progression. He continued his maintenance immunotherapy. He received cycle 7 on 05/07/2020. On 05/15/2020 he presented to the emergency room with nausea/vomiting and visual changes. His head CT showed well circumscribed low-attenuation bilateral parietal lesions with surrounding edema, consistent with metastatic disease. The largest was on the left measuring 2.9 x 2.3 cm. The right parietal lesion measured 1.9 x 2.0 cm. Further evaluation with MRI on 05/15/2020 showed peripheral enhancing bilateral parietal lesions on the left measuring 2.8 x 2.9 cm and on the right measuring 1.9 x 1.6 cm. An additional 8 mm lesion was noted in the right posterior temporal lobe. The appearance was consistent with metastatic disease. He was deemed unsuitable for surgical resection. He was then seen by Dr. Robles for palliative radiation. He underwent SRS to all 3 lesions. The right posterior temporal lesion was treated on 05/26/2020 to a total dose of 2400 cGy. Treatment to the left parietal lesion was completed on 06/06/2020 to a dose of 3000 cGy administered in 10 fractions. Treatment to the right parietal lesion was completed on 06/18/2020 to a total dose of 3000 cGy administered in [address] scans on 07/28/2020 showed stable bronchovascular thickening along the right hilum, unchanged from the prior study. There was progressed subcarinal lymphadenopathy measuring 2.0 cm compared to 1.6 cm. There were no other findings of disease progression. Hazy groundglass opacities in the right upper lobe anteriorly appear to be most consistent with infectious or inflammatory change. Consolidative opacity or atelectasis in the right lower lobe medially along the right infrahilar lung measuring 1.6 cm appeared to be most likely due to treatment related changes, but the appearance was nonspecific. A noncalcified nodule at the right hemidiaphragm measuring 6 mm appeared stable. A cavernous hemangioma involving the left hepatic lobe appeared stable measuring 1.0 cm. Repeat head MRI on 08/29/2020 showed significant decrease in size of the left parietal metastasis measuring 1.4 x 0.9 cm and in the right parietal metastasis measuring 0.8 x 0.4 cm. There was also improvement in the associated edema. The previously described right parahippocampal gyrus enhancing lesion was noted to have completely resolved. There were no new enhancing lesions identified. His other medical illnesses include hypertension, dyslipidemia, and coronary artery disease with previous myocardial infarction. He has significant underlying COPD. 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 He also has degenerative arthritis and posttraumatic stress disorder with anxiety/depression. He has a history of smoking 2 packs of cigarettes daily for 50 years. INTERIM HISTORY: I had seen him for a follow-up visit on 09/08/2020. He had significant clinical improvement with the radiation. Given the MRI and CT findings, he then had further evaluation with next generation sequencing by liquid biopsy, and that study showed presence of an EGFR mutation, specifically a deletion involving exon 19 ([id number]). With that finding, he then began a trial of targeted therapy wtih osimertinib 80 mg daily on 10/21/2020. His repeat head CT on 02/02/2021 was negative for metastatic disease or enhancing lesions of the brain. Bilateral parietal lesions were no longer present. Restaging CT scans of the chest, abdomen, and pelvis on 02/17/2021 showed mild progression of interstitial thickening and bronchial wall thickening in the medial right upper lobe and right lower lobe. Also noted was a slight increase in the size of the enlarged subcarinal lymph node measuring 2.4 cm. There were new mildly prominent lymph nodes noted in the left paratracheal region. There was no evidence of metastatic disease in the abdomen/pelvis. In the setting of minimal disease progression, he continued targeted therapy with osimertinib. Repeat chest CT on 04/24/2021 showed no change in the appearance of the right lung and mediastinum. There did appear to be slight worsening of suspected scarring, postoperative, or postradiation therapy changes at the left lung base. His contrast-enhanced head CT on 05/15/2021 showed no evidence of enhancing intracranial metastatic disease. He is seen for a follow-up visit. He has been feeling okay, though he does have fatigue. He is able to do some light work. ECOG score is 1. His appetite is not very good, and he has been losing weight. He had a little bit of fever, but just 1 day. He does not have night sweating. He has some sinus drainage and he has chronic cough. He says his breathing is not too bad. He has not been having chest pain. He has no GI or complaints. He has generalized aching all the time, but that is chronic. He does not complain of headache or dizziness, and he has no focal neurologic symptoms. Medications: Albuterol Sulfate 2.5 mg (of 2.5 mg/0.5mL) Nebulization solution Inhalation q 6 hours PRN, amLODIPine Besylate 1 Tablet (of 5 mg) Oral daily, Asmanex HFA 2 Inhalation Aerosol Inhalation daily, Aspirin 1 Tablet (of 81 mg) Tablet, enteric coated Oral daily, Benadryl Allergy 1 Tablet (of 25 mg) Tablet Oral daily PRN, Cetirizine HCl 1 Tablet (of 10 mg) Oral daily, Diclofenac 1 Capsule Oral daily PRN, Fish Oil 1 Capsule Oral daily, Fluticasone Propionate 1 Cameron(s) (of 50 mcg/act) Suspension Nasal b.i.d., Gabapentin 1 (300 mg) Capsule Oral t.i.d., guaiFENesin 1 Tablet (of 400 mg) Oral b.i.d. PRN, metFORMIN HCl Tablet Oral, oxyCODONE HCl 1 Tablet (of 10 mg) Oral t.i.d. PRN, Pantoprazole Sodium 1 Tablet (of 40 mg) Tablet, enteric coated Oral daily, ProAir HFA 2 Puff(s) (of 108 (90 base) mcg/act) Aerosol, solution Inhalation four times a day PRN, Stiolto Respimat 2 Puff(s) (of 2.5-2.5 mcg/act) Aerosol, solution Inhalation daily, Tamsulosin HCl 1 Capsule (of 0.4 mg) Oral daily, Vitamin D 2 Capsule Oral daily Allergies: PENICILLIN and Statins. Vital Signs: Performed on May 21, 2021 15:08 Height - 68.50 in Weight - 172.6 lbs (LOW) BSA - 1.93 sq.m BMI - 25.86 Temperature - 98.2 F (LOW) Pulse - 92 /min Respiration - 16 /min BP - 131/71 mm(hg) O2 Sat - 94 % (LOW) Pain - 0 Fatigue - 4 Physical Examination: Constitutional - He looks pretty good generally, Eyes - Sclerae nonicteric. Conjunctivae clear, ENMT - No lesions noted in the oral cavity, Hematologic/Lymphatic - No cervical, clavicular, or axillary adenopathy, Respiratory - Lungs sound clear with diminished air movement bilaterally, Cardiovascular - Heart rhythm is regular. There is no murmur, gallop, or rub noted, Abdomen - Soft. Liver and spleen are not enlarged. There is no abdominal mass or ascites noted and there is no inguinal adenopathy, Extremities - No edema, Integumentary - There is no skin eruption, Neurologic - No focal neurologic deficits noted. Lab/Imaging: Test performed on May 21, 2021 11:33 Sodium 133 mmol/L Potassium 3.6 mmol/L Chloride 96 mmol/L CO2 25 mmol/L Anion Gap 15.6 BUN 14 mg/dL Creatinine 1.2 mg/dL Cr Clearance (Est) 66.15 mL/min eGFR 60.4 mL/min Glucose 179 mg/dL Osmolality - Calculated 281 mOsm/kg Calcium 8.6 mg/dL Protein, Total 7.3 g/dL Albumin 3.9 g/dL Globulin 3.4 g/dL Bilirubin, Total 0.2 mg/dL ALT (SGPT) 11 U/L AST (SGOT) 22 U/L Alkaline Phosphatase 69 IU/L WBC 2.0 10 3/uL RBC 4.22 10 6/uL HGB 13.1 g/dL HCT 40.3 % MCV 95.5 fl MCH 31.0 pg MCHC 32.5 g/dL RDW 13.2 % Platelet Count 125 10 3/cmm MPV 10.3 fL Neutrophils 0.83 10 3/uL Lymphocytes 0.9 10 3/uL Monocytes 0.3 10 3/uL Eosinophils 0.1 10 3/uL Basophils 0.0 10 3/uL Neutrophil % 40.9 % Lymphocyte % 41.9 % Monocyte % 13.3 % Eosinophil % 3.4 % Basophils % 0.5 % NRBC % 0 % Problem List: 1. Non-small cell carcinoma involving her right hilar mass. Pathology favored squamous cell carcinoma. It appeared to be a new primary malignancy. By PET/CT there appeared to be additional right hilar adenopathy so that by clinical evaluation his disease appeared to be stage IIB (T2a, N1, M0) at initial diagnosis. He had subsequent progression to stage IV with development of multiple metastatic lesions in the brain. On next generation sequencing, his tumor was found to harbor an EGFR mutation, specifically in exon 19 deletion. 2. He has a history of grade 3/4 adenocarcinoma involving the upper lobe of the left lung, stage IB (T2a, N0, M0), for which he underwent thoracotomy with left upper lobectomy and mediastinal lymphadenectomy on 09/04/2012. 3. COPD. 4. Hypertension. 5. Dyslipidemia. 6. Coronary artery disease with previous myocardial infarction. 7. Degenerative arthritis. 8. History of treated hepatitis C. 9. History of abdominal aortic aneurysm for which he underwent endograft repair in 2010. 10. Posttraumatic stress disorder with anxiety/depression. Problems Addressed with this Encounter and Plan: Patient with non-small cell carcinoma involving the perihilar region of the right lung. Pathology favored squamous cell carcinoma. By PET/CT there appeared to be additional right hilar adenopathy so that by clinical evaluation his disease appeared to be stage IIB (T2a, N1, M0). His disease was deemed inoperable. As such, he was treated with radiation concurrently with weekly carboplatin/paclitaxel chemotherapy. His chemotherapy was complicated by neutropenia and Abraxane was substituted for the paclitaxel due to steroid intolerance. He completed radiation on 11/20/2019 to a total dose of 6000 cGy. He received a total of 4 weekly chemotherapy infusions. He had a very good response by follow-up chest CT. On 01/16/2020 he began maintenance immunotherapy with durvalumab. He tolerated the initial infusion well, and he then continued treatment at 2-week intervals. He received cycle 7 of durvalumab on 05/07/2020. His further treatment was put on hold, as he subsequently was found to have progression to stage IV disease with brain MRI on 05/19/2020 showing right and left parietal lobe and right posterior temporal lobe metastatic lesions. He was deemed unsuitable for surgical resection. He underweint SRS to all 3 sites of involvement, completed in June 2020. He has had a very good response by follow-up MRI. In the meantime, his restaging showed a slight increase in the size of a subcarinal lymph node. There was otherwise no obvious disease progression. Changes in the right lung were felt to be most likely infectious/inflammatory and/or treatment related. With those findings he then had further evaluation with next generation sequencing by liquid biopsy, and he was found to have an EGFR mutation, specifically an exon 19 deletion. On 10/21/2020 he began a trial of targeted therapy with osimertinib 80 mg daily. During follow-up he had been tolerating the osimertinib with minimal toxicities. His restaging chest CT on 02/17/2021 appeared to show slight progression in subcarinal and left paratracheal lymphadenopathy and possibly in the hilar area of the right lung. However, with those changes being very minimal, he continued targeted therapy with osimertinib. His repeat chest CT on 04/24/2021 showed only minimal changes at the left lung base, and his repeat head CT on 05/15/2021 showed no evidence of metastatic disease. Overall, he has been doing well clinically, but he has now developed moderately severe neutropenia, which I assume is treatment related. As such, the osimertinib will be put on hold. Blood counts will be monitored weekly and with adequate recovery he will restart treatment at a reduced dosage of 40 mg daily. I will tentatively plan a follow-up visit in 2 months. Signed By: Gino Grissom M.D. <<Signature on File>>
== END 2021-05-21 11:18 | disposition home or self-care (01) ==
PROVIDERS: PCP Emergency Medicine Emergency Medical Services; Visit Provider Internal Medicine Medical Oncology
DX: C34.01 Malignant neoplasm of right main bronchus (principal); C79.31 Secondary malignant neoplasm of brain; Z85.118 Personal history of other malignant neoplasm of bronchus and lung; Z87.891 Personal history of nicotine dependence; Z92.3 Personal history of irradiation; Z15.09 Genetic susceptibility to other malignant neoplasm; D70.9 Neutropenia, unspecified
CPT/HCPCS: 36591; 80053; 85025; 99214

== ENCOUNTER 2021-05-28 15:07 | Outpatient (CLI) | payer OTHER, SELFPAY ==
[2021-05-28 17:18] LABS: Basophils % 0.4 %; Eosinophils # 0.3 10^3/uL (0.0-0.8); Eosinophils % 6.4 %; Hematocrit 41.8 % (42.0-52.0); Hemoglobin 13.6 g/dL (11.7-16.6); Lymphocytes # 1.5 10^3/uL (0.8-4.8); Lymphocytes % 29.4 %; Mean Corpuscular HGB Conc 32.5 g/dL (30.0-36.0); Mean Corpuscular Hemoglobin 30.7 pg (28.0-34.0); Mean Corpuscular Volume 94.4 fl (80-94); Mean Platelet Volume 9.7 fL (7.4-10.4); Monocytes # 0.7 10^3/uL (0.2-0.9); Monocytes % 13.3 %; Neutrophils # 2.53 10^3/uL (1.8-7.7); Neutrophils % 50.3 %; Nucleated Red Blood Cells % 0 %; Platelet Count 173 10^3/cmm (130-400); Red Blood Count 4.43 10^6/uL (4.1-5.3); Red Cell Distribution Width 13.1 % (12.1-15.1)
== END 2021-05-28 15:08 | disposition home or self-care (01) ==
LOC: ONCMED 15:08
PROVIDERS: PCP Emergency Medicine Emergency Medical Services; Visit Provider Internal Medicine Medical Oncology
DX: C34.91 Malignant neoplasm of unspecified part of right bronchus or lung (principal); C79.31 Secondary malignant neoplasm of brain
CPT/HCPCS: 36591; 85025

== ENCOUNTER 2021-06-04 12:20 | Outpatient (CLI) | payer OTHER, SELFPAY ==
[2021-06-04 13:22] LABS: Basophils # 0.1 10^3/uL (0.0-0.1); Basophils % 0.8 %; Eosinophils # 0.3 10^3/uL (0.0-0.8); Eosinophils % 5.1 %; Hematocrit 41.4 % (42.0-52.0); Hemoglobin 13.2 g/dL (11.7-16.6); Lymphocytes # 1.6 10^3/uL (0.8-4.8); Lymphocytes % 24.5 %; Mean Corpuscular HGB Conc 31.9 g/dL (30.0-36.0); Mean Corpuscular Hemoglobin 30.1 pg (28.0-34.0); Mean Corpuscular Volume 94.3 fl (80-94); Mean Platelet Volume 10.2 fL (7.4-10.4); Monocytes # 0.5 10^3/uL (0.2-0.9); Monocytes % 7.3 %; Neutrophils # 4.02 10^3/uL (1.8-7.7); Nucleated Red Blood Cells % 0 %; Platelet Count 226 10^3/cmm (130-400); Red Blood Count 4.39 10^6/uL (4.1-5.3); Red Cell Distribution Width 12.9 % (12.1-15.1); White Blood Count 6.5 10^3/uL (4.0-10.0)
== END 2021-06-04 12:21 | disposition home or self-care (01) ==
LOC: ONCMED 12:23
PROVIDERS: PCP Emergency Medicine Emergency Medical Services; Visit Provider Internal Medicine Medical Oncology
DX: C34.12 Malignant neoplasm of upper lobe, left bronchus or lung (principal); C34.01 Malignant neoplasm of right main bronchus; C79.31 Secondary malignant neoplasm of brain; Z79.899 Other long term (current) drug therapy
CPT/HCPCS: 36415; 36591; 85025

== ENCOUNTER 2021-06-23 09:14 | Oncology outpatient (recurring) (ONCR) | payer OTHER, SELFPAY ==
[2021-06-23 09:58] VITALS: BP 110/67; PULSE 80; RESP 18; TEMP 36.4; O2SAT 95
[2021-06-23 10:06] LABS: Basophils % 0.5 %; Eosinophils # 0.5 10^3/uL (0.0-0.8); Eosinophils % 7.7 %; Hematocrit 38.6 % (42.0-52.0); Hemoglobin 12.3 g/dL (11.7-16.6); Lymphocytes # 1.4 10^3/uL (0.8-4.8); Lymphocytes % 21.2 %; Mean Corpuscular HGB Conc 31.9 g/dL (30.0-36.0); Mean Corpuscular Hemoglobin 30.2 pg (28.0-34.0); Mean Corpuscular Volume 94.8 fl (80-94); Mean Platelet Volume 10.3 fL (7.4-10.4); Monocytes # 0.6 10^3/uL (0.2-0.9); Monocytes % 9.2 %; Neutrophils # 4.08 10^3/uL (1.8-7.7); Neutrophils % 61.2 %; Nucleated Red Blood Cells % 0 %; Platelet Count 148 10^3/cmm (130-400); Red Blood Count 4.07 10^6/uL (4.1-5.3); Red Cell Distribution Width 14.3 % (12.1-15.1); White Blood Count 6.7 10^3/uL (4.0-10.0)
[2021-06-23 10:31] LABS: Alanine Aminotransferase 9 U/L (0-41); Alkaline Phosphatase 83 IU/L (40-130); Anion Gap 13.1 (5-19); Aspartate Amino Transferase 16 U/L (0-40); Blood Urea Nitrogen 9 mg/dL (8-23); Carbon Dioxide 26 mmol/L (22-29); Chloride 102 mmol/L (98-107); Globulin 4.1 g/dL (1.3-4.6); Glomerular Filtration Rate 96.4 mL/min (90-130); Glucose 115 mg/dL (65-115); Osmolality Calculated 284 mOsm/kg (285-295); Potassium 4.1 mmol/L (3.5-5.1); Sodium 137 mmol/L (136-145); Total Bilirubin 0.4 mg/dL (0.15-1.2); Total Protein 8.1 g/dL (6.6-8.7)
== END 2021-07-07 23:59 | disposition home or self-care (01) ==
PROVIDERS: PCP Emergency Medicine Emergency Medical Services; Visit Provider Internal Medicine Medical Oncology
DX: C34.12 Malignant neoplasm of upper lobe, left bronchus or lung (principal)
CPT/HCPCS: 36591; 80053; 85025

== ENCOUNTER 2021-07-23 08:52 | Oncology outpatient (recurring) (ONCR) | payer OTHER, SELFPAY | END 2021-08-06 23:59 | disposition home or self-care (01) | LOC: ONCMED 08:53 | PROVIDERS: PCP Emergency Medicine Emergency Medical Services; Visit Provider Internal Medicine Medical Oncology | DX: C34.01 Malignant neoplasm of right main bronchus (principal); C78.02 Secondary malignant neoplasm of left lung; C79.31 Secondary malignant neoplasm of brain; C77.8 Secondary and unspecified malignant neoplasm of lymph nodes of multiple regions; F17.210 Nicotine dependence, cigarettes, uncomplicated; D70.1 Agranulocytosis secondary to cancer chemotherapy; T45.1X5A Adverse effect of antineoplastic and immunosuppressive drugs, initial encounter; Z79.899 Other long term (current) drug therapy | CPT/HCPCS: 36591; 85025; 99215 ==

== ENCOUNTER 2021-08-21 08:30 | Oncology outpatient (recurring) (ONCR) | payer OTHER, SELFPAY ==
[2021-08-13 10:09] VITALS: BP 117/65; PULSE 93; RESP 18; TEMP 36.3; O2SAT 97
[2021-08-13 10:40] LABS: Basophils % 0.7 %; Eosinophils # 0.5 10^3/uL (0.0-0.8); Eosinophils % 8.1 %; Hematocrit 41.2 % (42.0-52.0); Hemoglobin 12.6 g/dL (11.7-16.6); Lymphocytes # 1.5 10^3/uL (0.8-4.8); Mean Corpuscular HGB Conc 30.6 g/dL (30.0-36.0); Mean Corpuscular Hemoglobin 29.8 pg (28.0-34.0); Mean Corpuscular Volume 97.4 fl (80-94); Mean Platelet Volume 10.4 fL (7.4-10.4); Monocytes # 0.6 10^3/uL (0.2-0.9); Monocytes % 10.1 %; Neutrophils # 3.25 10^3/uL (1.8-7.7); Neutrophils % 55.8 %; Nucleated Red Blood Cells % 0 %; Platelet Count 189 10^3/cmm (130-400); Red Blood Count 4.23 10^6/uL (4.1-5.3); Red Cell Distribution Width 15.4 % (12.1-15.1); White Blood Count 5.8 10^3/uL (4.0-10.0)
[2021-08-13 11:00] LABS: Alanine Aminotransferase 12 U/L (0-41); Albumin Level 3.7 g/dL (3.5-5.2); Alkaline Phosphatase 72 IU/L (40-130); Anion Gap 13.4 (5-19); Aspartate Amino Transferase 17 U/L (0-40); Blood Urea Nitrogen 14 mg/dL (8-23); Calcium 8.6 mg/dL (8.5-10.5); Carbon Dioxide 27 mmol/L (22-29); Chloride 102 mmol/L (98-107); Globulin 3.8 g/dL (1.3-4.6); Glomerular Filtration Rate 96.4 mL/min (90-130); Glucose 100 mg/dL (65-115); Osmolality Calculated 287 mOsm/kg (285-295); Potassium 4.4 mmol/L (3.5-5.1); Sodium 138 mmol/L (136-145); Total Bilirubin 0.2 mg/dL (0.15-1.2); Total Protein 7.5 g/dL (6.6-8.7)
[2021-08-21 08:49] LABS: Basophils % 0.6 %; Eosinophils # 0.6 10^3/uL (0.0-0.8); Eosinophils % 7.9 %; Hematocrit 41.7 % (42.0-52.0); Hemoglobin 13.1 g/dL (11.7-16.6); Lymphocytes # 1.8 10^3/uL (0.8-4.8); Mean Corpuscular HGB Conc 31.4 g/dL (30.0-36.0); Mean Corpuscular Volume 95.4 fl (80-94); Mean Platelet Volume 10.2 fL (7.4-10.4); Monocytes # 0.8 10^3/uL (0.2-0.9); Monocytes % 11.3 %; Neutrophils # 3.78 10^3/uL (1.8-7.7); Neutrophils % 53.9 %; Nucleated Red Blood Cells % 0 %; Platelet Count 173 10^3/cmm (130-400); Red Blood Count 4.37 10^6/uL (4.1-5.3); Red Cell Distribution Width 15.2 % (12.1-15.1)
[2021-08-21 09:13] LABS: Alanine Aminotransferase 12 U/L (0-41); Albumin Level 4.2 g/dL (3.5-5.2); Alkaline Phosphatase 84 IU/L (40-130); Anion Gap 12.6 (5-19); Aspartate Amino Transferase 19 U/L (0-40); Blood Urea Nitrogen 14 mg/dL (8-23); Carbon Dioxide 28 mmol/L (22-29); Chloride 101 mmol/L (98-107); Glomerular Filtration Rate 84.2 mL/min (90-130); Glucose 132 mg/dL (65-115); Osmolality Calculated 286 mOsm/kg (285-295); Potassium 4.6 mmol/L (3.5-5.1); Sodium 137 mmol/L (136-145); Total Bilirubin 0.3 mg/dL (0.15-1.2); Total Protein 8.2 g/dL (6.6-8.7)
== END 2021-09-06 23:59 | disposition home or self-care (01) ==
PROVIDERS: PCP Emergency Medicine Emergency Medical Services; Visit Provider Internal Medicine Medical Oncology
DX: C34.01 Malignant neoplasm of right main bronchus (principal); F17.210 Nicotine dependence, cigarettes, uncomplicated; C79.31 Secondary malignant neoplasm of brain; Z85.118 Personal history of other malignant neoplasm of bronchus and lung
CPT/HCPCS: 36591; 80053; 85025; 99214

== ENCOUNTER 2021-10-01 12:30 | Oncology outpatient (recurring) (ONCR) | payer OTHER, SELFPAY ==
--- NOTE | 2021-10-01 10:13 | CT_ITS ---
WS: [id number] CT CHEST, ABDOMEN, AND PELVIS TECHNIQUE: Contrast-enhanced CT of the chest, abdomen, and pelvis with coronal and sagittal reformatt ed images. CLINICAL INFORMATION: RESTAGING COMPARISON: CT chest April 24, 2021, CT chest abdomen pelvis February 17, 2021 DLP: 3966.[address] scans at [facility] use at least one of these dose optimization techniques: automated e xposure control; mA and/or kV adjustment per patient size (includes targeted exams where dose is matc hed to clinical indication); or iterative reconstruction. CT CHEST: Patchy slightly nodular groundglass infiltrates in the LEFT lower lobe are new from the hannah or examinations. This may be infectious or inflammatory. However, metastatic disease not excluded. Re commend short interval follow-up after treatment. Chest otherwise stable compared to previous. Bronchovascular thickening along the RIGHT hilum unchanged from previous examinations. Mild narrowing of the RIGHT mainstem bronchus is stable. Stable parenchymal scarring with interstitial thickening i n the RIGHT upper lobe medially and superior segment RIGHT lower lobe similar to the prior examinatio ns. Stable enlarged subcarinal lymph node measuring up to 2.0 CM. Stable enlarged LEFT paratracheal lymph nodes. CT ABDOMEN AND PELVIS: Mild diffuse fatty infiltration of the liver. Cavernous hemangioma left hepatic lobe measuring 1 cm s table from previous. Normal portal vein and splenic vein. Normal gallbladder. Gallbladder is co ntrac colette. Fatty atrophy of the pancreas. Normal GE junction. Adrenal glands are normal. Normal spleen. Normal bilateral renal parenchymal enhancement. No hydronephrosis. Stable renal cysts. Stable calcifi cation left kidney. Prior postoperative changes aortic endograft with biiliac extension. Sigmoid dive rticulosis. No evidence of acute diverticulitis. No evidence of small or large bowel obstruction. Tin y fat-containing umbilical hernia. No abdominal or pelvic lymphadenopathy. Disc space narrowing throu ghout the lumbar spine. Enlarged calcified prostate appears stable. CT/CT chest abd pel w con* IMPRESSION: 1. Patchy slightly nodular groundglass infiltrates in the LEFT lower lobe are new from the prior examinations. This may be infectious or inflammatory. Metast atic disease is an additional consideration. Recommend short interval follow-up after treatment. 2. Stable bronchovascular thickening along the RIGHT hilum with surrounding fi brosis and interstitial thickening stable in appearance. This is likely due to treatment-related changes. 3. No evidence of progressed metastatic disease in the abdomen or pelvis. 4. Stable aortic endograft. 5. Stable enlarged subcarinal lymph node and prominent LEFT paratracheal lymph nodes
--- NOTE | 2021-10-01 10:13 | CT_ITS ---
WS: [id number] CT HEAD TECHNIQUE: Noncontrast and contrast-enhanced CT of the head. CLINICAL INFORMATION: LUNG CANCER/BRAIN METS COMPARISON: CT 05/29 and MRI August 29, 2020 DLP: 3966.[address] scans at [facility] use at least one of these dose optimization techniques: automated e xposure control; mA and/or kV adjustment per patient size (includes targeted exams where dose is matc hed to clinical indication); or iterative reconstruction. FINDINGS: No evidence of intracranial hemorrhage or mass effect. Ventricular system and basal cisterns are rosenthal nt. Moderate small vessel changes with moderate parenchymal volume loss. Intracranial vascular calcif ication. Mastoid air cells are well aerated. Paranasal sinuses are well aerated. No intracranial enhancing metastatic disease. No suspicious intracranial enhancing lesions. Normal vi sualized dural venous sinuses. CT/CT head wo/w con [id number] IMPRESSION: 1. No visualized enhancing intracranial metastatic disease 2. No evidence of mass or mass effect. 3. No other changes compared to previous.
[2021-10-01] MEDS: barium sulfate 450 mL Oral Susp PO (11:34)
[2021-10-01] MEDS: iohexol 350 mg/mL 100 mL Btl IV (12:38)
== END 2021-10-07 23:59 | disposition home or self-care (01) ==
LOC: ONCMED 10-08 07:18
PROVIDERS: PCP Emergency Medicine Emergency Medical Services; Visit Provider Internal Medicine Medical Oncology
DX: C34.12 Malignant neoplasm of upper lobe, left bronchus or lung; C79.31 Secondary malignant neoplasm of brain; C71.9 Malignant neoplasm of brain, unspecified
CPT/HCPCS: 70470; 71260; 74177; 96523

== ENCOUNTER 2021-10-16 08:30 | Oncology outpatient (recurring) (ONCR) | payer OTHER, SELFPAY ==
--- NOTE | 2021-10-08 14:05 | XR_ITS ---
WS: [email or web address] Exam: XR chest 2V* [id number] Date/Time of Exam: 10/08/2021 2:25 PM Reason For Exam: infection Comparison 07/20/2019. Prominent right hilar mass noted. Pulmonary hyperinflation. Chronic blunting of the left costophrenic angle. Heart size is normal. The mediastinum is normal in contour. Left subclavian port ends in the lower one third of the SVC in good position. XR/XR chest 2V* [id number] IMPRESSION: 1. Large right hilar mass. 2. Pulmonary hyperinflation which may indicate obstructive lung disease. 3. Left subclavian port in satisfactory position. 4. Surgical clips at the left hilar region and chronic changes of the left diap hragm with pleural thickening.
[2021-10-16 08:57] LABS: Basophils % 0.7 %; Eosinophils # 0.7 10^3/uL (0.0-0.8); Eosinophils % 11.1 %; Hematocrit 42.9 % (42.0-52.0); Hemoglobin 13.6 g/dL (11.7-16.6); Lymphocytes # 1.6 10^3/uL (0.8-4.8); Lymphocytes % 27.6 %; Mean Corpuscular HGB Conc 31.7 g/dL (30.0-36.0); Mean Corpuscular Hemoglobin 30.2 pg (28.0-34.0); Mean Corpuscular Volume 95.1 fl (80-94); Mean Platelet Volume 10.6 fL (7.4-10.4); Monocytes # 0.6 10^3/uL (0.2-0.9); Monocytes % 9.5 %; Neutrophils % 50.9 %; Nucleated Red Blood Cells % 0 %; Platelet Count 143 10^3/cmm (130-400); Red Blood Count 4.51 10^6/uL (4.1-5.3); Red Cell Distribution Width 14.7 % (12.1-15.1); White Blood Count 5.9 10^3/uL (4.0-10.0)
[2021-10-16 09:12] LABS: Alanine Aminotransferase 10 U/L (0-41); Albumin Level 3.7 g/dL (3.5-5.2); Alkaline Phosphatase 75 U/L (40-130); Aspartate Amino Transferase 17 U/L (0-40); Blood Urea Nitrogen 13 mg/dL (8-23); Calcium 8.5 mg/dL (8.5-10.5); Carbon Dioxide 29 mmol/L (22-29); Chloride 102 mmol/L (98-107); Globulin 3.7 g/dL (1.3-4.6); Glomerular Filtration Rate 74.5 mL/min (90-130); Glucose 173 mg/dL (65-115); Osmolality Calculated 290 mOsm/kg (285-295); Sodium 138 mmol/L (136-145); Total Bilirubin 0.3 mg/dL (0.15-1.2); Total Protein 7.4 g/dL (6.6-8.7)
== END 2021-11-06 23:59 | disposition home or self-care (01) ==
PROVIDERS: Nurse Practitioner Family; PCP Emergency Medicine Emergency Medical Services; Visit Provider Internal Medicine Medical Oncology
DX: Z53.9 Procedure and treatment not carried out, unspecified reason (principal); C34.12 Malignant neoplasm of upper lobe, left bronchus or lung; C79.31 Secondary malignant neoplasm of brain; Z45.2 Encounter for adjustment and management of vascular access device; C34.01 Malignant neoplasm of right main bronchus; F17.210 Nicotine dependence, cigarettes, uncomplicated; Z85.118 Personal history of other malignant neoplasm of bronchus and lung; C34.90 Malignant neoplasm of unspecified part of unspecified bronchus or lung
CPT/HCPCS: 36591; 71046; 80053; 85025; 87070; 99214

== ENCOUNTER 2021-11-19 12:44 | Oncology outpatient (recurring) (ONCR) | payer OTHER, SELFPAY | END 2021-12-07 23:59 | disposition home or self-care (01) | PROVIDERS: PCP Emergency Medicine Emergency Medical Services; Visit Provider Internal Medicine Medical Oncology | DX: Z53.9 Procedure and treatment not carried out, unspecified reason (principal); C34.12 Malignant neoplasm of upper lobe, left bronchus or lung; C79.31 Secondary malignant neoplasm of brain; Z45.2 Encounter for adjustment and management of vascular access device; C34.01 Malignant neoplasm of right main bronchus; F17.210 Nicotine dependence, cigarettes, uncomplicated; Z85.118 Personal history of other malignant neoplasm of bronchus and lung; C34.90 Malignant neoplasm of unspecified part of unspecified bronchus or lung; C77.8 Secondary and unspecified malignant neoplasm of lymph nodes of multiple regions; C78.02 Secondary malignant neoplasm of left lung; Z79.2 Long term (current) use of antibiotics; Z79.899 Other long term (current) drug therapy; Z92.21 Personal history of antineoplastic chemotherapy; Z92.3 Personal history of irradiation | CPT/HCPCS: 96523 ==

== ENCOUNTER 2021-12-24 13:00 | Oncology outpatient (recurring) (ONCR) | payer OTHER, SELFPAY | END 2022-01-06 23:59 | disposition home or self-care (01) | PROVIDERS: PCP Emergency Medicine Emergency Medical Services; Visit Provider Internal Medicine Medical Oncology | DX: C34.12 Malignant neoplasm of upper lobe, left bronchus or lung | CPT/HCPCS: 96523 ==

== ENCOUNTER 2022-01-15 11:55 | Outpatient (CLI) | payer OTHER, SELFPAY ==
--- NOTE | 2022-01-15 12:30 | CT_ITS ---
WS: [email or web address] EXAMINATION: CT head wo/w con [id number] HISTORY: Restaging, history of lung cancer ORDER DATE: 01/15/2022 12:26 PM COMPARISON: 10/01/2021 DLP: 942.80 TECHNIQUE: CT imaging of the head is performed without the use of intravascular contrast with transax ial imaging from the skull base to the vertex with 2-D reformats. FINDINGS: CT attenuation throughout the cerebral hemispheres is demonstrating very minimal chronic ischemic josias nge/small vessel disease.. The ventricles were normal in outline. There was no mass effect, midline s hift or any sign of intraventricular or parenchymal hemorrhage. The mastoids and visible sinuses are unremarkable. There were no extra-axial fluid collections and no sign of skull fracture. No evidence of pathologic contrast enhancement on postcontrast imaging. CT/CT head wo/w con [id number] IMPRESSION: NO ACUTE INTRACRANIAL PROCESS. NO INTERVAL CHANGE FROM PREVIOUS STUDY AND NO SIGN OF METASTATIC DISEASE
== END 2022-01-15 11:56 | disposition home or self-care (01) ==
PROVIDERS: PCP Emergency Medicine Emergency Medical Services; Visit Provider Internal Medicine Medical Oncology
DX: C34.01 Malignant neoplasm of right main bronchus (principal); C79.31 Secondary malignant neoplasm of brain
CPT/HCPCS: 70470; Q9967

== ENCOUNTER 2022-01-15 12:01 | Outpatient (CLI) | payer OTHER, SELFPAY ==
[2022-01-15] MEDS: iohexol 350 mg/mL 500 mL Btl (per mL) IV (12:25)
--- NOTE | 2022-01-15 12:30 | CT_ITS ---
WS: [email or web address] EXAMINATION: CT chest w con* [id number] REASON FOR EXAM: Restaging COMPARISON: 10/01/2021 ORDER DATE: 01/15/2022 12:24 PM TOTAL EXAM DLP: 2697.[address] scans at [facility] use at least one of these dose optimization techniques: automated ex posure control; mA and/or kV adjustment per patient size (includes targeted exams where dose is match ed to clinical indication); or iterative reconstruction. TECHNIQUE: Multiple axial images of the chest were obtained with 2-D imaging with contrast utilizing 95 mL of Op tiray 350 FINDINGS: Lungs: Patchy slightly nodular groundglass infiltrates in the LEFT lower lobe have completely cleared from prior examinations. Lungs otherwise stable compared to previous. Mediastinum: Bronchovascular thickening along the RIGHT hilum unchanged from previous examinations. M ild narrowing of the RIGHT mainstem bronchus is stable. Stable parenchymal scarring with interstitial thickening in the RIGHT upper lobe medially and superior segment RIGHT lower lobe similar to the prior examinations. Decreased subcarinal lymph node measuring 13.4 mm compared with previous 2.0 CM. Minimal left paratracheal lymph nodes. No evidence of axillary adenopathy. There is a somewhat nodular 2 cm defect surrounded by contrast in the apex of the left ventricle whic h was not present on the prior exam but was present on the CT study on 04/24/2021. There is a new lobular enhancing somewhat heterogenous mass 32.8 mm in diameter in the central left h epatic lobe.. Cavernous hemangioma left hepatic lobe measuring 1 cm stable from previous. Normal portal vein and splenic vein. Aortic stent graft noted. Partially imaged renal cysts CT/CT chest w con* [id number] IMPRESSION: 1. Patchy slightly nodular groundglass infiltrates in the LEFT lower lobe on th e previous study have completely cleared 2. Stable bronchovascular thickening a long the RIGHT hilum with surrounding fibrosis and interstitial thickening stable in appearance. 3. Decreased subcarinal adenopathy 4. New heterogenous enhancing mass in the left hepatic lobe 32.8 mm in diameter consistent with new metastasis. 5. Left ventricular apical thrombus.
== END 2022-01-15 12:02 | disposition home or self-care (01) ==
PROVIDERS: PCP Emergency Medicine Emergency Medical Services; Visit Provider Internal Medicine Medical Oncology
DX: C34.12 Malignant neoplasm of upper lobe, left bronchus or lung (principal); I26.99 Other pulmonary embolism without acute cor pulmonale
CPT/HCPCS: 71260; Q9967

== ENCOUNTER 2022-01-20 12:04 | Oncology outpatient (recurring) (ONCR) | payer OTHER, SELFPAY ==
[2022-01-20 12:32] LABS: Basophils % 0.5 %; Eosinophils # 0.2 10^3/uL (0.0-0.8); Eosinophils % 5.2 %; Lymphocytes # 1.4 10^3/uL (0.8-4.8); Lymphocytes % 33.7 %; Mean Corpuscular HGB Conc 31.9 g/dL (30.0-36.0); Mean Corpuscular Hemoglobin 31.3 pg (28.0-34.0); Mean Corpuscular Volume 97.9 fl (80-94); Mean Platelet Volume 10.4 fL (7.4-10.4); Monocytes # 0.4 10^3/uL (0.2-0.9); Monocytes % 10.3 %; Neutrophils # 2.14 10^3/uL (1.8-7.7); Neutrophils % 50.1 %; Nucleated Red Blood Cells % 0 %; Platelet Count 126 10^3/cmm (130-400); Red Cell Distribution Width 14.3 % (12.1-15.1); White Blood Count 4.3 10^3/uL (4.0-10.0)
[2022-01-20 12:44] LABS: Alanine Aminotransferase 12 U/L (0-41); Alkaline Phosphatase 85 U/L (40-130); Anion Gap 13.4 (5-19); Aspartate Amino Transferase 20 U/L (0-40); Blood Urea Nitrogen 9 mg/dL (8-23); Calcium 8.6 mg/dL (8.5-10.5); Carbon Dioxide 27 mmol/L (22-29); Chloride 102 mmol/L (98-107); Globulin 3.7 g/dL (1.3-4.6); Glomerular Filtration Rate 74.3 mL/min (90-130); Glucose 113 mg/dL (65-115); Osmolality Calculated 285 mOsm/kg (285-295); Potassium 4.4 mmol/L (3.5-5.1); Sodium 138 mmol/L (136-145); Total Bilirubin 0.3 mg/dL (0.15-1.2); Total Protein 7.7 g/dL (6.6-8.7)
== END 2022-02-06 23:59 | disposition home or self-care (01) ==
PROVIDERS: PCP Emergency Medicine Emergency Medical Services; Visit Provider Internal Medicine Medical Oncology
DX: C34.01 Malignant neoplasm of right main bronchus (principal); C78.02 Secondary malignant neoplasm of left lung; C79.31 Secondary malignant neoplasm of brain; C78.7 Secondary malignant neoplasm of liver and intrahepatic bile duct; Z79.899 Other long term (current) drug therapy; F17.210 Nicotine dependence, cigarettes, uncomplicated; Z92.21 Personal history of antineoplastic chemotherapy; Z92.3 Personal history of irradiation
CPT/HCPCS: 36591; 80053; 85025; 99214

== ENCOUNTER 2022-02-26 09:51 | Oncology outpatient (recurring) (ONCR) | payer OTHER, SELFPAY | END 2022-03-09 23:59 | disposition home or self-care (01) | LOC: ONCMED 09:52 | PROVIDERS: PCP Emergency Medicine Emergency Medical Services; Visit Provider Internal Medicine Medical Oncology | DX: Z45.2 Encounter for adjustment and management of vascular access device (principal); Z95.828 Presence of other vascular implants and grafts | CPT/HCPCS: 96523 ==

== ENCOUNTER 2022-03-12 10:50 | Outpatient (CLI) | payer OTHER, SELFPAY ==
[2022-03-12] MEDS: iohexol 350 mg/mL 500 mL Btl (per mL) IV (10:55)
--- NOTE | 2022-03-12 11:30 | CTR_ITS ---
PROCEDURE INFORMATION: Exam: CT Abdomen With Contrast Exam date and time: 03/12/2022 11:38 AM Age: 66 years old Clinical indication: Prior chemotherapy - 11/2019 weekly carboplatin/paclitaxel chemotherapy. Prior radiation therapy - chest hilar 11/2019. Prior interventional oncology - right and left parietal lobe and right posterior temporal lobe metastatic lesions. He was deemed unsuitable for surgical resection. he underwent srs to all 3 sites of involvement, completed in June 2020. Condition or disease; Cancer; Primary cancer: Lung. Patient with non-small cell carcinoma of the right lung, by clinical evaluation stage iib (t2a, n1, m0) at initial diagnosis in August 2019. he had subsequent progression to stage ivb (m1c) with development of multiple brain metastases. Follow-up oncological assessment; Additional info: As of September 2021 there was no evidence of disease progression on his surveillance CT scans, at that point he appeared stable clinically. His current chest CT shows a new left hepatic lobe metastatic lesion measuring 3.28 cm. Thus far it appears to be the only site of metastatic disease. Recently he has had some decline in his energy/activity tolerance, but he has otherwise remained stable clinically. As such, he will continue treatment with osimertinib 80 MG daily. TECHNIQUE: Imaging protocol: Computed tomography of the abdomen with contrast. Radiation optimization: All CT scans at this facility use at least one of these dose optimization techniques: automated exposure control; mA and/or kV adjustment per patient size (includes targeted exams where dose is matched to clinical indication); or iterative reconstruction. Contrast material: OMNI 350; Contrast volume: 95 ml; Contrast route: INTRAVENOUS (IV); Other contrast: Oral, omni 350, 20; Other protocol: This patient has received 6 known CTs and 0 known cardiac nuclear medicine studies in the 12 months prior to the current study. COMPARISON: CT chest abdpel w/*[id number] 10/01/2021 12:16 PM RADIATION DOSE METRICS: Total DLP (mGy-cm): 1710.21 FINDINGS: Lungs: Emphysematous changes. Left lower lobe subsegmental atelectasis. Liver: Left hepatic lobe 3.4 cm somewhat heterogeneous masslike lesion may again reflect the cavernous hemangioma as previously noted. Mild hepatic steatosis suspected. Gallbladder and bile ducts: Normal. No calcified stones. No ductal dilation. Pancreas: Normal. No ductal dilation. Spleen: Normal. No splenomegaly. Adrenal glands: Normal. No mass. Kidneys and ureters: Left kidney benign parenchymal calcifications. Bilateral renal cysts, negative for follow-up advised. Left kidney lower pole punctate nonobstructing calyceal stone. Stomach and bowel: Constipation. Diverticulosis without diverticulitis. Intraperitoneal space: Unremarkable. No free air. No significant fluid collection. Vasculature: Aorta bi-iliac stent seen in place without abnormality. 13 mm right renal artery aneurysm with peripheral calcification again suspected similar to prior exam. Lymph nodes: Unremarkable. No enlarged lymph nodes. Bones/joints: Unremarkable. No acute fracture. No dislocation. Soft tissues: Unremarkable. CT/CT abdomen w con* [id number] IMPRESSION: 1. Overall relatively stable findings in the abdomen compared to prior study. 2. Emphysematous changes. 3. Left lower lobe subsegmental atelectasis. 4. Left kidney benign parenchymal calcifications. 5. Aorta bi-iliac stent seen in place without abnormality. 6. Constipation. 7. Left hepatic lobe 3.4 cm somewhat heterogeneous masslike lesion may again reflect the cavernous hemangioma as previously noted. 8. 13 mm right renal artery aneurysm with peripheral calcification again suspected similar to prior exam. 9. Bilateral renal cysts, negative for follow-up advised. 10. Diverticulosis without diverticulitis. 11. Left kidney lower pole punctate nonobstructing calyceal stone. 12. Mild hepatic steatosis suspected. COMMENTS: Consistent with the [employer]'s Incidental Findings Committee white paper (J Am Bienvenido Radiol 2018): Any incidental renal lesion less than 1 cm or classified as too small to characterize, or any incidental cystic renal lesion characterized as simple-appearing, is likely benign. No follow-up imaging is recommended for these lesions per consensus recommendations based on imaging criteria.
== END 2022-03-12 10:51 | disposition home or self-care (01) ==
LOC: RAD 10:50
PROVIDERS: PCP Emergency Medicine Emergency Medical Services; Referring Provider Surgery; Visit Provider Internal Medicine Medical Oncology
DX: C34.12 Malignant neoplasm of upper lobe, left bronchus or lung (principal); C78.7 Secondary malignant neoplasm of liver and intrahepatic bile duct; J43.9 Emphysema, unspecified; J98.11 Atelectasis; N20.0 Calculus of kidney; K59.00 Constipation, unspecified; K76.0 Fatty (change of) liver, not elsewhere classified; K57.90 Diverticulosis of intestine, part unspecified, without perforation or abscess without bleeding; N28.1 Cyst of kidney, acquired; I72.2 Aneurysm of renal artery; R16.0 Hepatomegaly, not elsewhere classified
CPT/HCPCS: 74160; Q9967

== ENCOUNTER 2022-03-22 14:00 | Oncology outpatient (recurring) (ONCR) | payer OTHER, SELFPAY ==
[2022-03-16 12:40] LABS: Basophils # 0.1 10^3/uL (0.0-0.1); Basophils % 0.7 %; Eosinophils # 0.4 10^3/uL (0.0-0.8); Hematocrit 45.9 % (42.0-52.0); Hemoglobin 14.5 g/dL (11.7-16.6); Lymphocytes # 1.6 10^3/uL (0.8-4.8); Lymphocytes % 20.5 %; Mean Corpuscular HGB Conc 31.6 g/dL (30.0-36.0); Mean Corpuscular Volume 98.3 fl (80-94); Mean Platelet Volume 10.4 fL (7.4-10.4); Monocytes # 0.7 10^3/uL (0.2-0.9); Monocytes % 9.4 %; Neutrophils # 4.91 10^3/uL (1.8-7.7); Neutrophils % 64.3 %; Nucleated Red Blood Cells % 0 %; Platelet Count 127 10^3/cmm (130-400); Red Blood Count 4.67 10^6/uL (4.1-5.3); Red Cell Distribution Width 14.6 % (12.1-15.1); White Blood Count 7.6 10^3/uL (4.0-10.0)
[2022-03-16 12:59] LABS: Alanine Aminotransferase 10 U/L (0-41); Albumin Level 3.9 g/dL (3.5-5.2); Alkaline Phosphatase 78 U/L (40-130); Anion Gap 12.2 (5-19); Aspartate Amino Transferase 17 U/L (0-40); Blood Urea Nitrogen 11 mg/dL (8-23); Calcium 8.7 mg/dL (8.5-10.5); Carbon Dioxide 29 mmol/L (22-29); Chloride 100 mmol/L (98-107); Globulin 3.4 g/dL (1.3-4.6); Glomerular Filtration Rate 96.1 mL/min (90-130); Glucose 90 mg/dL (65-115); Osmolality Calculated 283 mOsm/kg (285-295); Potassium 4.2 mmol/L (3.5-5.1); Sodium 137 mmol/L (136-145); Total Bilirubin 0.2 mg/dL (0.15-1.2); Total Protein 7.3 g/dL (6.6-8.7)
--- NOTE | 2022-03-16 15:39 | PC.NURSE ---
Phone call to home with the answering machine notified for patient that he should call the office for results.[email or web address]
== END 2022-04-06 23:59 | disposition home or self-care (01) ==
PROVIDERS: Nurse Practitioner; PCP Emergency Medicine Emergency Medical Services; Visit Provider Internal Medicine Medical Oncology
DX: C34.01 Malignant neoplasm of right main bronchus (principal); Z79.899 Other long term (current) drug therapy
CPT/HCPCS: 80053; 85025

== ENCOUNTER 2022-04-22 13:29 | Oncology outpatient (recurring) (ONCR) | payer OTHER, SELFPAY | END 2022-05-07 23:59 | disposition home or self-care (01) | PROVIDERS: PCP Emergency Medicine Emergency Medical Services; Visit Provider Internal Medicine Medical Oncology | DX: Z45.2 Encounter for adjustment and management of vascular access device; Z95.828 Presence of other vascular implants and grafts | CPT/HCPCS: 96523 ==

== ENCOUNTER 2022-05-20 08:03 | Oncology outpatient (recurring) (ONCR) | payer OTHER, SELFPAY ==
[2022-05-20 08:21] VITALS: BMI 25.4
[2022-05-20 08:22] VITALS: BP 127/83; PULSE 94; RESP 18; TEMP 36.8; O2SAT 93
[2022-05-20 08:23] VITALS: BP 127/83; PULSE 94; RESP 18; TEMP 36.8; O2SAT 93
[2022-05-20 08:29] LABS: Basophils # 0.1 10^3/uL (0.0-0.1); Basophils % 0.8 %; Eosinophils # 0.3 10^3/uL (0.0-0.8); Eosinophils % 4.5 %; Hematocrit 43.6 % (42.0-52.0); Hemoglobin 13.9 g/dL (11.7-16.6); Lymphocytes # 1.4 10^3/uL (0.8-4.8); Lymphocytes % 21.3 %; Mean Corpuscular HGB Conc 31.9 g/dL (30.0-36.0); Mean Corpuscular Hemoglobin 30.3 pg (28.0-34.0); Mean Corpuscular Volume 95.2 fl (80-94); Mean Platelet Volume 10.4 fL (7.4-10.4); Monocytes # 0.6 10^3/uL (0.2-0.9); Monocytes % 9.9 %; Neutrophils # 4.08 10^3/uL (1.8-7.7); Neutrophils % 63.3 %; Nucleated Red Blood Cells % 0 %; Platelet Count 136 10^3/cmm (130-400); Red Blood Count 4.58 10^6/uL (4.1-5.3); Red Cell Distribution Width 14.6 % (12.1-15.1); White Blood Count 6.4 10^3/uL (4.0-10.0)
[2022-05-20 08:52] LABS: Alanine Aminotransferase 10 U/L (0-41); Albumin Level 3.7 g/dL (3.5-5.2); Alkaline Phosphatase 68 U/L (40-130); Anion Gap 14.3 (5-19); Aspartate Amino Transferase 17 U/L (0-40); Blood Urea Nitrogen 10 mg/dL (8-23); Calcium 8.6 mg/dL (8.5-10.5); Carbon Dioxide 26 mmol/L (22-29); Chloride 106 mmol/L (98-107); Globulin 4.1 g/dL (1.3-4.6); Glomerular Filtration Rate 74.3 mL/min (90-130); Glucose 98 mg/dL (65-115); Osmolality Calculated 293 mOsm/kg (285-295); Potassium 4.3 mmol/L (3.5-5.1); Sodium 142 mmol/L (136-145); Total Bilirubin 0.4 mg/dL (0.15-1.2); Total Protein 7.8 g/dL (6.6-8.7)
== END 2022-06-06 23:59 | disposition home or self-care (01) ==
LOC: ONCMED 08:04
PROVIDERS: PCP Emergency Medicine Emergency Medical Services; Visit Provider Internal Medicine Medical Oncology
DX: C78.02 Secondary malignant neoplasm of left lung; C79.31 Secondary malignant neoplasm of brain; C78.7 Secondary malignant neoplasm of liver and intrahepatic bile duct; F17.210 Nicotine dependence, cigarettes, uncomplicated; Z79.899 Other long term (current) drug therapy; Z92.21 Personal history of antineoplastic chemotherapy; Z92.3 Personal history of irradiation; C34.01 Malignant neoplasm of right main bronchus; C77.8 Secondary and unspecified malignant neoplasm of lymph nodes of multiple regions; Z90.2 Acquired absence of lung [part of]
CPT/HCPCS: 80053; 85025; 99214

== ENCOUNTER 2022-06-01 16:13 | Outpatient (CLI) | payer OTHER, SELFPAY ==
--- NOTE | 2022-06-01 16:30 | CT_ITS ---
WS: [id number] CT chest w con* [id number] HISTORY: Restaging, lung cancer TECHNIQUE: Axial imaging performed through the thorax. Coronal and sagittal reformats are submitted. All CT scans at [facility] use at least one of these dose optimization techniques: automated exposure control; mA and/or kV adjustment per patient size (includes targeted exams where dose is mat ched to clinical indication); or iterative reconstruction. CONTRAST: Omnipaque 350; 100 mL IV. DLP: 271.52 mGy.cm COMPARISON: 01/15/2022, 04/24/2021 Lungs and central airway: Marked emphysema and hyperexpansion. Linear subsegmental areas of atelectas is in the central LEFT upper lobe anterior RIGHT middle lobe. Most consistent with areas of chronic a telectasis and fibrosis. Pleura: Normal. No pleural effusion. Heart and pericardium: Mildly bulbous appearance to the LEFT ventricular apex. Suspect thrombus in th e apex but improved since 01/15/2022. Mediastinum and traci: There is extensive and bilateral bronchial thickening surrounding the bronchova scular structures. Similar to prior studies. Greater thickening on the RIGHT. Single cluster of lymph nodes in the AP window measuring 13 x 18 mm. Very similar to 04/24/2021. Vessels: Extensive atherosclerosis aorta. Normal size pulmonary artery. Chest wall and lower neck: LEFT subclavian Port-A-Cath. Upper abdomen: Partially visualized aortic stent graft. Mass in the LEFT hepatic lobe with heterogene ous enhancement measures 5.2 x 5.0 cm. This was present on 01/15/2022 but increased in size. There is an additional hypervascular lesion in the LEFT lobe which is much smaller measuring 1.0 cm. This larg er mass was not definitely seen on studies from 2020. Due to its increase in size further evaluation for metastatic disease should be obtained. No adrenal mass. Bilateral renal cysts. Calcification subc apsular location LEFT kidney. Osseous structures: No destructive bone lesions identified. CT/CT chest w con* [id number] IMPRESSION: 1. Stable bronchial and peribronchial soft tissue thickening. No new mass. Lym ph nodes are stable. 2. Severe emphysema. 3. Enlarging heterogeneous enhancing mass in the LEFT lobe of the liver now me asures 5.2 x 5.0 cm. There is also an adjacent hemangioma. This new mass has no t definitely been seen on older examinations. Recommend PET/CT imaging to asses s for metastatic lesion. 4. 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 This was also presen t on prior exams without progression.
[2022-06-01] MEDS: iohexol 350 mg/mL 100 mL Btl IV (16:50)
== END 2022-06-01 16:14 | disposition home or self-care (01) ==
PROVIDERS: PCP Emergency Medicine Emergency Medical Services; Visit Provider Internal Medicine Medical Oncology
DX: C34.12 Malignant neoplasm of upper lobe, left bronchus or lung (principal); J43.9 Emphysema, unspecified
CPT/HCPCS: 71260; Q9967

== ENCOUNTER 2022-06-17 13:14 | Oncology outpatient (recurring) (ONCR) | payer OTHER, SELFPAY ==
[2022-06-17 14:00] VITALS: BP 130/71; PULSE 76; RESP 18; TEMP 36.9; O2SAT 90
[2022-06-17 14:22] LABS: Basophils % 0.7 %; Eosinophils # 0.4 10^3/uL (0.0-0.8); Eosinophils % 6.5 %; Hematocrit 42.4 % (42.0-52.0); Hemoglobin 13.4 g/dL (11.7-16.6); Lymphocytes # 1.4 10^3/uL (0.8-4.8); Lymphocytes % 24.5 %; Mean Corpuscular HGB Conc 31.6 g/dL (30.0-36.0); Mean Corpuscular Hemoglobin 30.9 pg (28.0-34.0); Mean Corpuscular Volume 97.9 fl (80-94); Mean Platelet Volume 10.5 fL (7.4-10.4); Monocytes # 0.6 10^3/uL (0.2-0.9); Neutrophils % 58.1 %; Nucleated Red Blood Cells % 0 %; Platelet Count 148 10^3/cmm (130-400); Red Blood Count 4.33 10^6/uL (4.1-5.3); Red Cell Distribution Width 15.9 % (12.1-15.1); White Blood Count 5.7 10^3/uL (4.0-10.0)
[2022-06-17 14:38] LABS: INR 1.06 (0.8-1.2)
[2022-06-17 14:39] LABS: Partial Thromboplastin Time 25.8 SECONDS (23.9-36.7)
== END 2022-07-07 23:59 | disposition home or self-care (01) ==
PROVIDERS: PCP Emergency Medicine Emergency Medical Services; Visit Provider Internal Medicine Medical Oncology
DX: R79.1 Abnormal coagulation profile (principal)
CPT/HCPCS: 36591; 85025; 85610; 85730; J1642

== ENCOUNTER 2022-07-15 13:14 | Oncology outpatient (recurring) (ONCR) | payer OTHER, SELFPAY ==
[2022-07-15 13:27] VITALS: BP 109/60; PULSE 90; RESP 17; TEMP 36.7; O2SAT 94
== END 2022-08-06 23:59 | disposition home or self-care (01) ==
PROVIDERS: PCP Emergency Medicine Emergency Medical Services; Visit Provider Internal Medicine Medical Oncology
DX: C78.02 Secondary malignant neoplasm of left lung (principal); C79.31 Secondary malignant neoplasm of brain; C78.7 Secondary malignant neoplasm of liver and intrahepatic bile duct; F17.210 Nicotine dependence, cigarettes, uncomplicated; Z79.899 Other long term (current) drug therapy; Z92.21 Personal history of antineoplastic chemotherapy; Z92.3 Personal history of irradiation; C34.12 Malignant neoplasm of upper lobe, left bronchus or lung; C34.01 Malignant neoplasm of right main bronchus
CPT/HCPCS: 96523; J1642

== ENCOUNTER 2022-08-17 14:35 | Oncology outpatient (recurring) (ONCR) | payer OTHER, SELFPAY ==
[2022-08-17 14:36] VITALS: BP 132/61; PULSE 92; RESP 16; TEMP 36.9; O2SAT 92
[2022-08-17 14:57] LABS: Basophils % 0.7 %; Eosinophils # 0.3 10^3/uL (0.0-0.8); Eosinophils % 5.7 %; Hemoglobin 14.2 g/dL (11.7-16.6); Lymphocytes # 1.6 10^3/uL (0.8-4.8); Lymphocytes % 27.5 %; Mean Corpuscular HGB Conc 31.6 g/dL (30.0-36.0); Mean Corpuscular Hemoglobin 30.9 pg (28.0-34.0); Mean Platelet Volume 10.7 fL (7.4-10.4); Monocytes # 0.6 10^3/uL (0.2-0.9); Monocytes % 10.6 %; Neutrophils # 3.18 10^3/uL (1.8-7.7); Neutrophils % 55.3 %; Nucleated Red Blood Cells % 0 %; Platelet Count 127 10^3/cmm (130-400); Red Blood Count 4.59 10^6/uL (4.1-5.3); Red Cell Distribution Width 14.7 % (12.1-15.1); White Blood Count 5.8 10^3/uL (4.0-10.0)
[2022-08-17 15:05] LABS: Alanine Aminotransferase 14 U/L (0-41); Albumin Level 3.9 g/dL (3.5-5.2); Alkaline Phosphatase 86 U/L (40-130); Anion Gap 10.8 (5-19); Aspartate Amino Transferase 21 U/L (0-40); Blood Urea Nitrogen 14 mg/dL (8-23); Calcium 8.7 mg/dL (8.5-10.5); Carbon Dioxide 27 mmol/L (22-29); Chloride 104 mmol/L (98-107); Globulin 3.6 g/dL (1.3-4.6); Glomerular Filtration Rate 83.9 mL/min (90-130); Glucose 82 mg/dL (65-115); Osmolality Calculated 286 mOsm/kg (285-295); Potassium 3.8 mmol/L (3.5-5.1); Sodium 138 mmol/L (136-145); Total Bilirubin 0.4 mg/dL (0.15-1.2); Total Protein 7.5 g/dL (6.6-8.7)
== END 2022-09-06 23:59 | disposition home or self-care (01) ==
PROVIDERS: PCP Emergency Medicine Emergency Medical Services; Visit Provider Internal Medicine Medical Oncology
DX: C78.02 Secondary malignant neoplasm of left lung (principal); C79.31 Secondary malignant neoplasm of brain; F17.210 Nicotine dependence, cigarettes, uncomplicated; C34.01 Malignant neoplasm of right main bronchus; Z90.2 Acquired absence of lung [part of]; C78.7 Secondary malignant neoplasm of liver and intrahepatic bile duct; F43.10 Post-traumatic stress disorder, unspecified; F41.9 Anxiety disorder, unspecified; Z79.891 Long term (current) use of opiate analgesic; Z79.899 Other long term (current) drug therapy
CPT/HCPCS: 36591; 80053; 85025; 99214; J1642

== ENCOUNTER 2022-09-14 10:38 | Oncology outpatient (recurring) (ONCR) | payer OTHER, SELFPAY ==
--- OUTSIDE RECORDS SUMMARY | 2022-09-14 10:40 | XMS_ITS | Continuity of Care Document ---
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 Phone PCP, NOT ON FILE Primary Care Physician Unavaila ble Encounter 04/16/22 - 04/17/22 [facility] [address] [place] [address]- [place] Encounter Diagnosis Liver neoplasm(Discharge Diagnosis) - 04/16/22 Non-small cell lung cancer(Discharge Diagnosis) - 04/16/22 Attending Physician: Belinda Bynum NP Allergies, Adverse Reactions, Alerts Substance Reaction Severity Status penicillin Unknown Moderate Active Assessment and Plan Future Scheduled Tests Radiology* MR Abd w wo Contrast 04/16/22 * CT Abd w wo Contrast 02/26/22 * CT Biopsy Only 02/17/22 * CT Guided Ablation 02/17/22 Medications ALPRAZolam 0.25 mg, By mouth, BID, 60 tab, 0, Substitution Permitted Start Date: 02/17/22 Status: Ordered cetirizine 5 mg, By mouth, Daily, # 30 tab, Refill(s) 0 Start Date: 02/17/22 Status: Ordered gabapentin 300 mg oral capsule 300 mg = 1 cap, By mouth, BID, # 60 cap, Refill(s) 0 Start Date: 02/17/22 Status: Ordered oxyCODONE 10 mg oral tablet 10 mg, = 1 tab, By mouth, Q8H, PRN Pain Severe, 30 EA, 0, 0, Substitution Permitted Start Date: 02/17/22 Status: Ordered Tagressa 80mg Tagressa 80mg, daily, Refills(s) 0, Supply Start Date: 02/17/22 Status: Ordered Problem List Condition Confirmation Course Effective Dates Status Health St [facility] Informant COPD (chronic obstructive pulmonary disease) Confirmed Active History of hepatitis C Confirmed Active Liver neoplasm Confirmed Active Non-small cell lung cancer Confirmed Active Tobacco use Confirmed Active Vital Signs Most recent to oldest [Reference Range]: 1 Height (inches) (Clinical) 67 in (04/16/22 2:03 PM) Weight (kg) (Clinical) 77.09 kg (04/16/22 2:03 PM) BMI (Clinical) 26.6 kg/m2 (04/16/22 2:03 PM) Social History Social History Type Response Smoking Status Current every day peter kingsley; Smokeless tobacco use: Never; Has the patient smoked in the last 365 days, even once? No entered on: 02/17/22 Sex Male Patient Care team information Care Team Personnel Name: PCP , NOT ON FILE Position: 2 Restricted Providers Member Role: Primary Care Physician
--- OUTSIDE RECORDS SUMMARY | 2022-09-14 10:40 | XMS_ITS | Continuity of Care Document ---
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 Phone PCP, NOT ON FILE Primary Care Physician Unavaila ble Encounter 06/16/22 - 06/17/22 [facility] [address] [place] [address]- [place] Encounter Diagnosis Non-small cell lung cancer(Discharge Diagnosis) - 06/16/22 History of hepatitis C(Discharge Diagnosis) - 06/16/22 Liver neoplasm(Discharge Diagnosis) - 06/16/22 Attending Physician: Wendy Chavez Allergies, Adverse Reactions, Alerts Substance Reaction Severity Status penicillin Unknown Moderate Active Assessment and Plan Future Scheduled Tests Laboratory* Alpha-Fetoprotein (AFP) Tumor Marker, Serum 06/16/22 Radiology* MR Yaya w wo Contrast 06/16/22 Medications ALPRAZolam 0.25 mg, By mouth, BID, [...] Range]: 1 Height (inches) (Clinical) 67 in (06/16/22 2:54 PM) Weight (kg) (Clinical) 77.27 kg (06/16/22 2:54 PM) BMI (Clinical) 26.6 kg/m2 (06/16/22 2:54 PM) Social History Social History Type Response Smoking Status Current every day peter kingsley; Smokeless tobacco use: Never; Has the patient smoked in the last 365 days, even once? No entered on: 02/17/22 Sex Male Patient Care team information Care Team Personnel Name: PCP , NOT ON FILE Position: 2 Restricted Providers Member Role: Primary Care Physician Name: Wendy Chavez Position: [facility] Med Service: General Surgery Member Role: Attending Physician Address: Address: [address] [place] [id number] [place] Care Team Related Persons Name: AUSTIN WILSON Address: home [address] [address]
--- OUTSIDE RECORDS SUMMARY | 2022-09-14 10:41 | XMS_ITS | Continuity of Care Document ---
Author Name Unknown Organization [facility] Address [address] [place] [address]- Care Team Providers Care Marketing Administrative Assistant Name Role Phone Rico Winters DO Primary Care Physician [phone] Encounter [facility] Number [phone] Date(s): 07/23/22 - 07/23/22 [facility] [address] [place] [address]- [phone] Discharge Disposition: .Discharge to Home (Routine) Attending Physician: Osmani Benites DO Allergies, Adverse Reactions, Alerts Substance Reaction Severity Status penicillin Unknown Moderate Active Assessment and Plan Extracted from: Title:Instructions to Patients Author:Savanah Blue RN Date:07/23/22 [facility] Needle Biopsy, Care After These instructions tell you how to care for yourself after your procedure. Your doctor may give you more instructions. Call your doctor if you have any problems or questions. What can I expect after the procedure? After a needle biopsy, it is common to have these things at the puncture site: ? ? Soreness. ? ? Bruising. ? ? Mild pain. These things should go away after a few days. Follow these instructions at home: Puncture site care ? ? Wash your hands with soap and water for at least 20 seconds before and after you change your bandage (dressing). If you cannot use soap and water, use hand student advisor. ? ? Follow instructions from your doctor about how to take care of your puncture site. This includes: ? ? When and how to change your bandage. ? ? When to take off your bandage. ? ? Check your puncture site every day for signs of infection. Check for: ? ? Redness, swelling, or more pain. ? ? Fluid or blood. ? ? Warmth. ? ? Pus or a bad smell. General instructions ? ? Go back to your normal activities when your doctor says that it is safe. Ask if there is anything you cannot do as you heal. ? ? Take ayas-lyv-qchvtlz and prescription medicines only as told by your doctor. ? ? Do not take baths, swim, or use a hot tub. Ask your doctor when you can shower. ? ? Keep all follow-up visits. Ask if you need an appointment to get your biopsy results. Contact a doctor if: ? ? You have a fever. ? ? You have redness, swelling, or more pain at the puncture site, and it lasts longer than a few days. ? ? You have fluid, blood, or pus coming from the puncture site. ? ? Your puncture site feels warm. Get help right away if: ? ? You have very bad bleeding from the puncture site. Summary ? ? After the procedure, it is common to have soreness, bruising, or mild pain at the puncture site. ? ? Check your puncture site every day for signs of infection, such as redness, swelling, or more pain. ? ? Get help right away if you have very bad bleeding from your puncture site. This information is not intended to replace advice given to you by your health care provider. Make sure you discuss any questions you have with your health care provider. Document Revised: 07/15/2021 Document Reviewed: 07/15/2021 [employer] Patient Education ?? 2021 [employer] Moderate Conscious Sedation, Adult, Care After This sheet gives you information about how to care for yourself after your procedure. Your health care provider may also give you more specific instructions. If you have problems or questions, contact your health care provider. What can I expect after the procedure? After the procedure, it is common to have: ? ? Sleepiness for several hours. ? ? Impaired judgment for several hours. ? ? Difficulty with balance. ? ? Vomiting if you eat too soon. Follow these instructions at home: For the time period you were told by your health care provider: ? ? Rest. ? ? Do not participate in activities where you could fall or become injured. ? ? Do not drive or use machinery. ? ? Do not drink alcohol. ? ? Do not take sleeping pills or medicines that cause drowsiness. ? ? Do not make important decisions or sign legal documents. ? ? Do not take care of children on your own. Eating and drinking ? ? Follow the diet recommended by your health care provider. ? ? Drink enough fluid to keep your urine pale yellow. ? ? If you vomit: ? ? Drink water, juice, or soup when you can drink without vomiting. ? ? Make sure you have little or no nausea before eating solid foods. General instructions ? ? Take nnnr-zjj-gyldkhy and prescription medicines only as told by your health care provider. ? ? Have a responsible adult stay with you for the time you are told. It is important to have someone help care for you until you are awake and alert. ? ? Do not smoke. ? ? Keep all follow-up visits as told by your health care provider. This is important. Contact a health care provider if: ? ? You are still sleepy or having trouble with balance after 24 hours. ? ? You feel light-headed. ? ? You keep feeling nauseous or you keep vomiting. ? ? You develop a rash. ? ? You have a fever. ? ? You have redness or swelling around the IV site. Get help right away if: ? ? You have trouble breathing. ? ? You have new-onset confusion at home. Summary ? ? After the procedure, it is common to feel sleepy, have impaired judgment, or feel nauseous if you eat too soon. ? ? Rest after you get home. Know the things you should not do after the procedure. ? ? Follow the diet recommended by your health care provider and drink enough fluid to keep your urine pale yellow. ? ? Get help right away if you have trouble breathing or new-onset confusion at home. This information is not intended to replace advice given to you by your health care provider. Make sure you discuss any questions you have with your health care provider. Document Revised: 05/23/2020 Document Reviewed: 12/20/2019 [employer] Patient Education ?? 2021 [employer]. Medication Leaflets: Accessing??[facility]??Express??Patient??Portal Access medications, test results, radiology reports, and more through [employer] secure patient portal. Please be patient if waiting on lab results, as these can take several days to process. [place] online at??[email or web address]??Use your community medical record number (CMRN) located below to verify your identity on the Self-Enrollment form.We also offer the ability for you to securely connect other health management apps to your health record. See the [facility] Connection link on the website above for more details. Watch [employer] (Mobile [employer]ments) Patient Education Videos and Access Resources anytime online! Visit [email or web address] Scheduled Tests Laboratory* Alpha-Fetoprotein (AFP) Tumor Marker, Serum 06/16/22 Radiology* MR Yaya soliz wo Contrast 06/16/22 Medications ALPRAZolam 0.25 mg, [...] cancer Confirmed Active Tobacco use Confirmed Active Results Laboratory List Name Date Platelet Count 07/23/22 Most recent to oldest [Reference Range]: 1 iPT 12.7 sec 1 (07/23/22 7:16 AM) iINR 1.1 2 (07/23/22 7:16 AM) Platelets [130-440 Thous/mm3] 135 Thous/ mm3 (07/23/22 7:11 AM) 1Result Comment: Performed at:[facility], [address], [place], [address] Reference Ranges: 9.0 - 13.5 sec. [facility] Laboratories have validated the use of the i-STAT PT/INR test on patients receiving anti-coagulant therapy and on non-anticoagulated patients. Testing on patients not on anti-coagulant has not been cleared or approved by the [place] Food and Drug Administration 2Result Comment: Performed at:[facility], [address], [place], [address] Reference Ranges: 0.80 - 1.30 Radiology Reports * Exam Date Time Procedure Performing Provider Status 07/23/22 9:[address] Biopsy Only Nicolas (R), Leyda Butts; Priscilla (Verified) Notes: (CT Biopsy Only) Reason For Exam: Liver lesion;Liver lesion REPORT CT Biopsy Only CT GUIDED BIOPSY OF LEFT HEPATIC MASS. Staff: Dr. Benites Medication: Versed 5 mg IV, fentanyl 100 mcg IV. Moderate sedation was provided under Radiologist supervision with continuous physiological monitoring done by an independent trained observer (or Radiology nursing staff). Total intra- service time: 30 minutes. 1% lidocaine in soft tissues left anterior abdominal region. Contrast: None. Fluoroscopy time: None. Dose: 1140.63 mGy-cm. Complications: None. HISTORY: Lobulated left hepatic mass. Possible malignancy requiring image guided biopsy. TECHNIQUE: Informed consent was obtained. Patient's left anterior abdominal region was prepped and draped in supine position. Under CT guidance, coaxial needle was inserted into left hepatic mass at least measuring 6.8 x 6.1 cm sized. Upon needle access, total of #6 18-gauge core biopsy samples were obtained with samples placed in formalin. Repeat imaging was obtained. Samples were sent to pathology for analysis. Post biopsy, Gelfoam slurry embolization of the biopsy tract was performed. Final imaging of the abdomen was obtained after needle removal. Hemostasis of puncture site was achieved with manual compression. Dressings were applied. FINDINGS: Initial CT imaging demonstrates a rounded ovoid heterogeneous noncalcified left hepatic mass at least 6.8 x 6.1 cm sized. Images demonstrates access into this mass via a left anterior abdominal approach. Upon needle placement into the lesion, total of 6 core biopsy samples of this mass were obtained, with good tissue obtained. Final postbiopsy imaging demonstrates no adjacent hematoma or fluid collection. Gas pockets within the mass from Gelfoam slurry embolization of the biopsy tract present. IMPRESSION: Successful CT-guided biopsy of left hepatic 6.8 x 6.1 cm sized mass as described with Gelfoam slurry embolization of biopsy tract. Electronically signed by: Dr Osmani Benites 07/23/2022 12:23 PM Osmani Benites DO Signed 07/23/22 12:23:00 (Electronic Signature) Client Engagement Specialist THERESA Technologist SAL Vital Signs Most recent to oldest [Reference Range]: 1 2 3 Blood Pressure 132/83 (07/23/22 10:45 AM) 145/73 (07/23/22 10:30 AM) 134/67 (07/23/22 10:15 AM) Social History Social History Type Response Smoking Status Current every day sm oker; Smokeless tobacco use: Never; Has the patient smoked in the last 365 days, even once? No entered on: 02/17/22 Sex Male Hospital Discharge Instructions Patient Education 07/23/2022 08:22:28 Needle Biopsy, Care After, Vqxy-nh-Qxmc Needle Biopsy, Care After These instructions tell you how to care for yourself after your procedure. Your doctor may give youmore instructions. Call your doctor if you have any problems or questions. What can I expect after the procedure? After a needle biopsy, it is common to have these things at the puncture site: ??? Soreness. ??? Bruising. ??? Mild pain. These things should go away after a few days. Follow these instructions at home: Puncture site care ??? Wash your hands with soap and water for at least 20 seconds before and after you change your bandage (dressing). If you cannot use soap and water, use hand student advisor. ??? Follow instructions from your doctor about how to take care of your puncture site. This includes: ??? When and how to change your bandage. ??? When to take off your bandage. ??? Check your puncture site every day for signs of infection. Check for: ??? Redness, swelling, or more pain. ??? Fluid or blood. ??? Warmth. ??? Pus or a bad smell. General instructions ??? Go back to your normal activities when your doctor says that it is safe. Ask if there is anything you cannot do as you heal. ??? Take ikeg-stx-pzttruq and prescription medicines only as told by your doctor. ??? Do not take baths, swim, or use a hot tub. Ask your doctor when you can shower. ??? Keep all follow-up visits. Ask if you need an appointment to get your biopsy results. Contact a doctor if: ??? You have a fever. ??? You have redness, swelling, or more pain at the puncture site, and it lasts longer than a few days. ??? You have fluid, blood, or pus coming from the puncture site. ??? Your puncture site feels warm. Get help right away if: ??? You have very bad bleeding from the puncture site. Summary ??? After the procedure, it is common to have soreness, bruising, or mild pain at the puncture site. ??? Check your puncture site every day for signs of infection, such as redness, swelling, or more pain. ??? Get help right away if you have very bad bleeding from your puncture site. This information is not intended to replace advice given to you by your health care provider. Make sure you discuss any questions you have with your health care provider. Document Revised: 07/15/2021 Document Reviewed: 07/15/2021 [employer] Patient Education ?? 2021 [employer]. 07/23/2022 08:22:28 Moderate Conscious Sedation, Adult, Care After Moderate Conscious Sedation, Adult, Care After This sheet gives you information about how to care for yourself after your procedure. Your health care provider may also give you more specific instructions. If you have problems or questions, contact your health care provider. What can I expect after the procedure? After the procedure, it is common to have: ??? Sleepiness for several hours. ??? Impaired judgment for several hours. ??? Difficulty with balance. ??? Vomiting if you eat too soon. Follow these instructions at home: For the time period you were told by your health care provider: ??? Rest. ??? Do not participate in activities where you could fall or become injured. ??? Do not drive or use machinery. ??? Do not drink alcohol. ??? Do not take sleeping pills or medicines that cause drowsiness. ??? Do not make important decisions or sign legal documents. ??? Do not take care of children on your own. Eating and drinking ??? Follow the diet recommended by your health care provider. ??? Drink enough fluid to keep your urine pale yellow. ??? If you vomit: ??? Drink water, juice, or soup when you can drink without vomiting. ??? Make sure you have little or no nausea before eating solid foods. General instructions ??? Take mhoq-bgb-wsjgdsk and prescription medicines only as told by your health care provider. ??? Have a responsible adult stay with you for the time you are told. It is important to have someone help care for you until you are awake and alert. ??? Do not smoke. ??? Keep all follow-up visits as told by your health care provider. This is important. Contact a health care provider if: ??? You are still sleepy or having trouble with balance after 24 hours. ??? You feel light-headed. ??? You keep feeling nauseous or you keep vomiting. ??? You develop a rash. ??? You have a fever. ??? You have redness or swelling around the IV site. Get help right away if: ??? You have trouble breathing. ??? You have new-onset confusion at home. Summary ??? After the procedure, it is common to feel sleepy, have impaired judgment, or feel nauseous if you eat too soon. ??? Rest after you get home. Know the things you should not do after the procedure. ??? Follow the diet recommended by your health care provider and drink enough fluid to keep your urine pale yellow. ??? Get help right away if you have trouble breathing or new-onset confusion at home. This information is not intended to replace advice given to you by your health care provider. Make sure you discuss any questions you have with your health care provider. Document Revised: 05/23/2020 Document Reviewed: 12/20/2019 [employer] Patient Education ?? [address] Guidance for biopsy of Unspecified body region * Delmis SHER, Veeral: PERFORM, TRANSCRIBE, VERIFY, VERIFY Event Display: Report Authored Date: Note * Delmis SHER, Veeral: PERFORM, TRANSCRIBE, VERIFY, VERIFY Event Display: Powerscribe Read Authored Date: CT GUIDED BIOPSY OF LEFT HEPATIC MASS. Staff: Dr. Benites Medication: Versed 5 mg IV, fentanyl 100 mcg IV. Moderate sedation was provided under Radiologist supervision with continuous physiological monitoring done by an independent trained observer (or Radiology nursing staff). Total intra- service time: 30 minutes. 1% lidocaine in soft tissues left anterior abdominal region. Contrast: None. Fluoroscopy time: None. Dose: 1140.63 mGy-cm. Complications: None. HISTORY: Lobulated left hepatic mass. Possible malignancy requiring image guided biopsy. TECHNIQUE: Informed consent was obtained. Patient's left anterior abdominal region was prepped and draped in supine position. Under CT guidance, coaxial needle was inserted into left hepatic mass at least measuring 6.8 x 6.1 cm sized. Upon needle access, total of #6 18-gauge core biopsy samples were obtained with samples placed in formalin. Repeat imaging was obtained. Samples were sent to pathology for analysis. Post biopsy, Gelfoam slurry embolization of the biopsy tract was performed. Final imaging of the abdomen was obtained after needle removal. Hemostasis of puncture site was achieved with manual compression. Dressings were applied. FINDINGS: Initial CT imaging demonstrates a rounded ovoid heterogeneous noncalcified left hepatic mass at least 6.8 x 6.1 cm sized. Images demonstrates access into this mass via a left anterior abdominal approach. Upon needle placement into the lesion, total of 6 core biopsy samples of this mass were obtained, with good tissue obtained. Final postbiopsy imaging demonstrates no adjacent hematoma or fluid collection. Gas pockets within the mass from Gelfoam slurry embolization of the biopsy tract present. IMPRESSION: Successful CT-guided biopsy of left hepatic 6.8 x 6.1 cm sized mass as described with Gelfoam slurry embolization of biopsy tract. Electronically signed by: Dr Osmani Benites 07/23/2022 12:23 PM Osmani Benites DO Signed 07/23/22 12:23:00 (Electronic Signature) Client Engagement Specialist THERESA Technologist SAL Patient Care team information Care Team Related Persons Name: AUSTIN WILSON Address: [facility] [place] [address]
--- OUTSIDE RECORDS SUMMARY | 2022-09-14 10:41 | XMS_ITS | Patient Health Record ---
Author Name Unknown Organization [facility] Address [address] [place] [address] Care Team Providers Care Admitting Manager Name Role Phone Ajay Singletary Primary Care Provider [phone] REASON FOR REFERRAL No Information MEDICATIONS Medication SIG (Take, Route, Frequency, Duration) Notes Start Date End Date Status Cyclobenzaprine hydrochloride 10 MG Oral Tablet Cyclobenzaprine hydrochloride 10 MG Oral Tablet 08/08/2015 0 Active gabapentin 300 MG Oral Capsule gabapentin 300 MG Oral Capsule 08/08/2015 0 Active Oxycodone Hydrochloride 5 MG Oral Tablet Oxycodone Hydrochloride 5 MG Oral Tablet 08/08/2015 0 Active {2 (480 ML Magnesium Sulfate 0.0277 MEQ/ML / potassium sulfate 0.0374 MEQ/ML / sodium sulfate 0.257 MEQ/ML Oral Solution) } Pack [Suprep Bowel Prep Kit] {2 (480 ML Magnesium Sulfate 0.0277 MEQ/ML / potassium sulfate 0.0374 MEQ/ML / sodium sulfate 0.257 MEQ/ML Oral Solution) } Pack [Suprep Bowel Prep Kit] 08/08/2015 0 Active SOCIAL HISTORY Sex Assigned At : Social History Observation Description Sex Assigned At Unknown PLAN OF TREATMENT No Information
--- OUTSIDE RECORDS SUMMARY | 2022-09-14 10:41 | XMS_ITS | Continuity of Care Document ---
Author Name Unknown Organization [facility] Address [address] [place] [address]- Care Team Providers Care Eradicator Name Role Phone Rico Winters DO Primary Care Physician Encounter [facility] Financial Number [id number] Date(s): 08/31/22 - 08/31/22 [facility] [address], [place] [address] [phone] Discharge Disposition: .Discharge to Home (Routine) Attending Physician: Gino Grossman III, MD Allergies, Adverse Reactions, Alerts Substance Reaction Severity Status penicillin Unknown Moderate Active Assessment and Plan Extracted from: Title:Instructions to Patients Author:aDrcie Decker RN Date:08/31/22 [facility] Moderate Conscious Sedation, Adult Sedation is the use of medicines to promote relaxation and to relieve discomfort and anxiety. Moderate conscious sedation is a type of sedation. Under moderate conscious sedation, you are less alert than normal, but you are still able to respond to instructions, touch, or both. Moderate conscious sedation is used during short medical and dental procedures. It is milder than deep sedation, which is a type of sedation under which you cannot be easily woken up. It is also milder than general anesthesia, which is the use of medicines to make you unconscious. Moderate conscious sedation allows you to return to your regular activities sooner. Tell a health care provider about: ? ? Any allergies you have. ? ? All medicines you are taking, including vitamins, herbs, eye drops, creams, and dkdd-rip-okxttdr medicines. ? ? Any use of steroids. This includes steroids taken by mouth or as a cream. ? ? Any problems you or family members have had with sedatives and anesthetic medicines. ? ? Any blood disorders you have. ? ? Any surgeries you have had. ? ? Any medical conditions you have, such as sleep apnea. ? ? Whether you are or may be . ? ? Any use of cigarettes, alcohol, marijuana, or drugs. What are the risks? Generally, this is a safe procedure. However, problems may occur, including: ? ? Getting too much medicine (oversedation). ? ? Nausea. ? ? Allergic reaction to medicines. ? ? Trouble breathing. If this happens, a breathing tube may be used. It will be removed when you are awake and breathing on your own. ? ? Heart trouble. ? ? Lung trouble. ? ? Confusion that gets better with time (emergence delirium). What happens before the procedure? Staying hydrated Follow instructions from your health care provider about hydration, which may include: ? ? Up to 2 hours before the procedure ? you may continue to drink clear liquids, such as water, clear fruit juice, black coffee, and plain tea. Eating and drinking restrictions Follow instructions from your health care provider about eating and drinking, which may include: ? ? 8 hours before the procedure ? stop eating heavy meals or foods, such as meat, fried foods, or fatty foods. ? ? 6 hours before the procedure ? stop eating light meals or foods, such as toast or cereal. ? ? 6 hours before the procedure ? stop drinking milk or drinks that contain milk. ? ? 2 hours before the procedure ? stop drinking clear liquids. Medicines Ask your health care provider about: ? ? Changing or stopping your regular medicines. This is especially important if you are taking diabetes medicines or blood thinners. ? ? Taking medicines such as aspirin and ibuprofen. These medicines can thin your blood. Do not take these medicines unless your health care provider tells you to take them. ? ? Taking lpoa-con-jqqsfsn medicines, vitamins, herbs, and supplements. Tests and exams ? ? You will have a physical exam. ? ? You may have blood tests done to show how well: ? ? Your kidneys and liver work. ? ? Your blood clots. General instructions ? ? Plan to have a responsible adult take you home from the hospital or clinic. ? ? If you will be going home right after the procedure, plan to have a responsible adult care for you for the time you are told. This is important. What happens during the procedure? ? ? You will be given the sedative. The sedative may be given: ? ? As a pill that you will swallow. It can also be inserted into the rectum. ? ? As a spray through the nose. ? ? As an injection into the muscle. ? ? As an injection into the vein through an IV. ? ? You may be given oxygen as needed. ? ? Your breathing, heart rate, and blood pressure will be monitored during the procedure. ? ? The medical or dental procedure will be done. The procedure may vary among health care providers and hospitals. What happens after the procedure? ? ? Your blood pressure, heart rate, breathing rate, and blood oxygen level will be monitored until you leave the hospital or clinic. ? ? You will get fluids through your IV if needed. ? ? Do not drive or operate machinery until your health care provider says that it is safe. Summary ? ? Sedation is the use of medicines to promote relaxation and to relieve discomfort and anxiety. Moderate conscious sedation is a type of sedation that is used during short medical and dental procedures. ? ? Tell the health care provider about any medical conditions that you have and about all the medicines that you are taking. ? ? You will be given the sedative as a pill, a spray through the nose, an injection into the muscle, or an injection into the vein through an IV. Vital signs are monitored during the sedation. ? ? Moderate conscious sedation allows you to return to your regular activities sooner. This information is not intended to replace advice given to you by your health care provider. Make sure you discuss any questions you have with your health care provider. Document Revised: 05/23/2020 Document Reviewed: 12/20/2019 [employer] Patient Education ?? 2021 [employer] Angiogram, Care After This sheet gives you information about how to care for yourself after your procedure. Your health care provider may also give you more specific instructions. If you have problems or questions, contact your health care provider. What can I expect after the procedure? After the procedure, it is common to have: ? ? Bruising and tenderness at the catheter insertion area. ? ? A collection of blood (hematoma) at the insertion area. This may feel like a small lump under the skin at the insertion site. Follow these instructions at home: Insertion site care ? ? Follow instructions from your health care provider about how to take care of your insertion site. Make sure you: ? ? Wash your hands with soap and water before and after you change your bandage (dressing). If soap and water are not available, use hand guardian ad litem. ? ? Change your dressing as told by your health care provider. ? ? Do not take baths, swim, or use a hot tub until your health care provider approves. ? ? You may shower 24? 48 hours after the procedure, or as told by your health care provider. To clean the insertion site: ? ? Gently wash the area with plain soap and water. ? ? Pat the area dry with a clean towel. ? ? Do not rub the site. This may cause bleeding. ? ? Check your insertion site every day for signs of infection. Check for: ? ? Redness, swelling, or pain. ? ? Fluid or blood. ? ? Warmth. ? ? Pus or a bad smell. ? ? Do not apply powder or lotion to the site. Keep the site clean and dry. Activity ? ? Do not drive for 24 hours if you were given a sedative during your procedure. ? ? Rest as told by your health care provider, usually for 1? 2 days. ? ? Do not lift anything that is heavier than 10 lb (4.5 kg), or the limit that you are told, until your health care provider says that it is safe. ? ? If the insertion site was in your leg, try to avoid stairs for a few days. ? ? Return to your normal activities as told by your health care provider, usually in about a week. Ask your health care provider what activities are safe for you. General instructions ? ? If your insertion site starts bleeding, lie flat and put pressure on the site. If the bleeding does not stop, get help right away. This is a medical emergency. ? ? Take wfxy-nap-dopgrpz and prescription medicines only as told by your health care provider. ? ? Drink enough fluid to keep your urine pale yellow. This helps flush the contrast dye from your body. ? ? Keep all follow-up visits as told by your health care provider. This is important. Contact a health care provider if: ? ? You have a fever or chills. ? ? You have redness, swelling, or pain around your insertion site. ? ? You have fluid or blood coming from your insertion site. ? ? Your insertion site feels warm to the touch. ? ? You have pus or a bad smell coming from your insertion site. ? ? You have more bruising around the insertion site. Get help right away if you have: ? ? A problem with the insertion area, such as: ? ? The area swells fast or bleeds even after you apply pressure. ? ? The area becomes pale, cool, tingly, or numb. ? ? Chest pain. ? ? Trouble breathing. ? ? A rash. ? ? Any symptoms of a stroke. BE FAST is an easy way to remember the main warning signs of a stroke: ? ? B - Balance. Signs are dizziness, sudden trouble walking, or loss of balance. ? ? E - Eyes. Signs are trouble seeing or a sudden change in vision. ? ? F - Face. Signs are sudden weakness or loss of feeling of the face, or the face or eyelid drooping on one side. ? ? A - Arms. Signs are weakness or loss of feeling in an arm. This happens suddenly and usually on one side of the body. ? ? S - Speech. Signs are sudden trouble speaking, slurred speech, or trouble understanding what people say. ? ? T - Time. Time to call emergency services. Write down what time symptoms started. ? ? You have other signs of a stroke, such as: ? ? A sudden, severe headache with no known cause. ? ? Nausea or vomiting. ? ? Seizure. These symptoms may represent a serious problem that is an emergency. Do not wait to see if the symptoms will go away. Get medical help right away. Call your local emergency services (911 in the [place] Do not drive yourself to the hospital. Summary ? ? It is common to have bruising and tenderness at the catheter insertion area. ? ? Do not take baths, swim, or use a hot tub until your health care provider approves. You may shower 24? 48 hours after the procedure or as told. ? ? It is important to rest and drink plenty of fluids. ? ? If the insertion site bleeds, lie flat and put pressure on the site. If the bleeding continues, get help right away. This is a medical emergency. This information is not intended to replace advice given to you by your health care provider. Make sure you discuss any questions you have with your health care provider. Document Revised: 11/28/2019 Document Reviewed: 11/28/2019 [employer] Patient Education ?? 2021 [employer]. Medication Leaflets: Accessing??[facility]Express??Patient??Portal Access medications, test results, radiology reports, and more through [employer] secure patient portal. Please be patient if waiting on lab results, as these can take several days to process. [place] online at??[email or web address]??Use your [facility] medical record number (CMRN) located below to verify your identity on the Self-Enrollment form.We also offer the ability for you to securely connect other health management apps to your health record. See the [facility] Connection link on the website above for more details. Watch [employer] Patient Education Videos and Access Resources anytime online! Visit [email or web address] Scheduled Tests Laboratory* Alpha-Fetoprotein (AFP) Tumor Marker, Serum 06/16/22 * Hemogram 07/29/22 * CMP 07/29/22 Radiology* MR Yaya soliz wo Contrast 06/16/22 * IR Consultation 08/16/22 * IR Chemoembolization 08/31/22 Medications ALPRAZolam 0.25 mg, By mouth, BID, [...] Active History of hepatitis C Confirmed Active HCC (hepatocellular carcinoma) Confirmed Active Liver neoplasm Confirmed Active Non-small cell lung cancer Confirmed Active Tobacco use Confirmed Active Procedures Procedure Date Related Diagnosis Body Site Status SLCTV CATHJ 2ND ORDER ABDL P EL/LXTR ART [facility] 08/31/22 Completed SLCTV CATHJ 3RD+ ORD SLCTV A BDL PEL/LXTR BRNC 08/31/22 Completed VASCULAR EMBOLIZATION OR OCC LUSION ARTERIAL RS&I 08/31/22 Completed Results Laboratory List Name Date PT/INR 08/31/22 CMP 08/31/22 CBC-d 08/31/22 zCBC Automated Diff 08/31/22 Most recent to oldest [Reference Range]: 1 Anion Gap [2-15 mEq/L] 4 mEq/L (08/31/22 7:35 AM) iPT 12.0 sec 1 (08/31/22 8:18 AM) iINR 1.0 2 (08/31/22 8:18 AM) eGFR CKD-EPI [>=61 mL/min/1.73 m2] 93 mL /min/1.73 m2 (08/31/22 7:35 AM) Glucose, Serum/Plasma [70-100 mg/dL] 104 mg/dL *HI* (08/31/22 7:35 AM) WBC [4.8-10.8 Thous/mm3] 5.3 Thous/mm3 (08/31/22 7:08 AM) Hct [42.0-52.0 %] 43.4 % (08/31/22 7:08 AM) Hgb [14.0-18.0 g/dL] 14.6 g/dL (08/31/22 7:08 AM) RBC [4.60-6.20 Million/mm3] 4.49 Million /mm3 *LOW* (08/31/22 7:08 AM) MCV [80.0-100.0 fl] 96.7 fl (08/31/22 7:08 AM) MCH [26.0-34.0 pg] 32.5 pg (08/31/22 7:08 AM) MCHC [31.0-36.5 g/dL] 33.6 g/dL (08/31/22 7:08 AM) RDW [10.4-14.4 %] 14.9 % *HI* (08/31/22 7:08 AM) Platelets [130-440 Thous/mm3] 273 Thous/ mm3 (08/31/22 7:08 AM) MPV [9.4-12.4 fl] 12.8 fl *HI* (08/31/22 7:08 AM) AutoNeutrophil [43.0-78.0 %] 49.4 % (08/31/22 7:08 AM) AutoLymphs [20.0-40.0 %] 27.8 % (08/31/22 7:08 AM) AutoMono [2.0-10.0 %] 12.6 % *HI* (08/31/22 7:08 AM) AutoEo [0.0-7.0 %] 9.4 % *HI* (08/31/22 7:08 AM) Sodium [136-145 mEq/L] 141 mEq/L (08/31/22 7:35 AM) Potassium [3.5-5.1 mEq/L] 3.5 mEq/L (08/31/22 7:35 AM) Chloride [98-107 mEq/L] 108 mEq/L *HI* (08/31/22 7:35 AM) AbsNeut [2.0-8.0 Thous/mm3] 2.6 Thous/mm 3 (08/31/22 7:08 AM) CO2 [21-32 mEq/L] 29 mEq/L (08/31/22 7:35 AM) BUN [7-18 mg/dL] 11 mg/dL (08/31/22 7:35 AM) Creatinine [0.73-1.18 mg/dL] 0.90 mg/dL (08/31/22 7:35 AM) AbsLymph [1.0-4.0 Thous/mm3] 1.5 Thous/m m3 (08/31/22 7:08 AM) AbsMono [0.1-1.0 Thous/mm3] 0.7 Thous/mm 3 (08/31/22 7:08 AM) Bilirubin, Total [0.2-1.0 mg/dL] 0.5 mg/ dL (08/31/22 7:35 AM) AbsEo [0.0-0.5 Thous/mm3] 0.5 Thous/mm3 (08/31/22 7:08 AM) AbsBaso [0.0-0.2 Thous/mm3] 0.0 Thous/mm 3 (08/31/22 7:08 AM) AutoBaso [0.0-2.5 %] 0.6 % (08/31/22 7:08 AM) Calcium [8.3-10.6 mg/dL] 9.2 mg/dL (08/31/22 7:35 AM) Protein Total [6.4-8.5 g/dL] 7.3 g/dL (08/31/22 7:35 AM) Albumin [3.4-5.0 g/dL] 3.6 g/dL (08/31/22 7:35 AM) AST [15-37 U/L] 29 U/L (08/31/22 7:35 AM) Alk Phos [45-117 U/L] 81 U/L (08/31/22 7:35 AM) ALT [10-49 U/L] 12 U/L (08/31/22 7:35 AM) PT [9.0-13.5 sec] 11.0 sec (08/31/22 8:16 AM) INR [0.80-1.30] 1.03 (08/31/22 8:16 AM) Imm. Grans % [0-5 %] <5 % (08/31/22 7:08 AM) Imm. Grans # [0.0-0.5 Thous/mm3] <0.5 Th ous/mm3 (08/31/22 7:08 AM) ANC-AbsNeutCount 2.6 Thous/mm3 *NA* (08/31/22 7:08 AM) 1Result Comment: Performed at:[facility], [facility] [place], [address] Reference Ranges: 9.0 - 13.5 sec. [facility] have validated the use of the i-STAT PT/INR test on patients receiving anti-coagulant therapy and on non-anticoagulated patients. Testing on patients not on anti-coagulant has not been cleared or approved by the Food and Drug Administration 2Result Comment: Performed at:[facility], [address] [place], [address] Reference Ranges: 0.80 - 1.30 Radiology Reports * Exam Date Time Procedure Performing Provider Status 08/31/22 12:10 PM NM Liver SPECT/CT MAA Mapping Faustino Guzman; Auth (Verified) Notes: (NM Liver SPECT/CT MAA Mapping) Reason For Exam: Liver CA REPORT Radiologist Pauline CHRISTIANSON, Ajay Field Signed 08/31/22 13:06:49 (Electronic Signature) Store Worker WDS Technologist JL,CW NM Liver SPECT/CT MAA Mapping Exam: MS Liver SPECT/CT MAA Mapping Date/Time of Exam: 08/31/2022 12:10 PM Clinical indication: Liver CA. Diagnosis Codes: Comparison: Outside CT abdomen and pelvis, 03/12/2022 Reading Location: [place] [address] \\ [address] Radiopharmaceutical: Technetium 99m MAA Dose: 5.2 mCi intra-arterial Procedure: Tc99m MAA was injected into the left hepatic artery by Dr. Gomez for the purpose of blood flow mapping and lung shunt determination, prior to treatment with Y90 Sir-Spheres. After injection of tracer, the patient was transported to the nuclear medicine department. Anterior and posterior planar images of the chest and liver were obtained followed by SPECT-CT imaging of the liver. Findings: Normal distribution of tracer in the liver. Other than lung activity, no convincing extrahepatic activity can be identified. . Visually, there is minimal lung activity identified. The calculated lungshunt is 1.4%. IMPRESSION: 1. Injection of Tc99m MAA into the right hepatic artery results in normal expected distribution of activity in the liver. Other than lung activity, there is no evidence for extrahepatic perfusion. 2. Visually, there is minimal lung activity identified. The calculated lung shunt is 1.4%. Electronically signed by: Dr. Ajay Carpenter 08/31/2022 1:06 PM Radiologist Ajay Carpenter MD Signed 08/31/22 13:06:49 (Electronic Signature) Store Worker WDS Technologist ANDREA RUIZ Vital Signs Most recent to oldest [Reference Range]: 1 2 3 Blood Pressure 128/67 (08/31/22 1:20 PM) 128/67 (08/31/22 1:10 PM) 148/88 (08/31/22 12:45 PM) Height (inches) (Clinical) 68 in (08/31/22 6:38 AM) Weight (kg) (Clinical) 72.7 kg (08/31/22 6:38 AM) BMI (Clinical) 24.3 kg/m2 (08/31/22 6:38 AM) Social History Social History Type Response Smoking Status Current every day sm oker; Smokeless tobacco use: Never; Has the patient smoked in the last 365 days, even once? No entered on: 02/17/22 Sex Male Implantable Device List Procedure Provider Procedure Date Device Type Site IR Y-90 Mapping Procedure Unknown 08/31/22 Unknown Unknown Device Identifier Serial Number Lot or Batch Number Manufacturing Date Expiration Date Distinct Identification Code MRI Safety Implantable Status Assigning Authority Unknown [id number] Unknown Unknown Unknown Unknown Active Unknown Procedure Provider Procedure Date Device Type Site IR Y-90 Mapping Procedure Unknown 08/31/22 Unknown Unknown Device Identifier Serial Number Lot or Batch Number Manufacturing Date Expiration Date Distinct Identification Code MRI Safety Implantable Status Assigning Authority Unknown [id number] Unknown Unknown Unknown Unknown Active Unknown Procedure Provider Procedure Date Device Type Site IR Y-90 Mapping Procedure Unknown 08/31/22 Unknown Unknown Device Identifier Serial Number Lot or Batch Number Manufacturing Date Expiration Date Distinct Identification Code MRI Safety Implantable Status Assigning Authority Unknown [id number] Unknown Unknown Unknown Unknown Active Unknown Hospital Discharge Instructions Patient Education 08/31/2022 12:48:22 Moderate Conscious Sedation, Adult Moderate Conscious Sedation, Adult Sedation is the use of medicines to promote relaxation and to relieve discomfort and anxiety. Moderate conscious sedation is a type of sedation. Under moderate conscious sedation, you are less alert than normal, but you are still able to respond to instructions, touch, or both. Moderate conscious sedation is used during short medical and dental procedures. It is milder than deep sedation, which is a type of sedation under which you cannot be easily woken up. It is also milder than general anesthesia, which is the use of medicines to make you unconscious. Moderate conscious sedation allows you to return to your regular activities sooner. Tell a health care provider about: ??? Any allergies you have. ??? All medicines you are taking, including vitamins, herbs, eye drops, creams, and lcpp-big-yfngdhw medicines. ??? Any use of steroids. This includes steroids taken by mouth or as a cream. ??? Any problems you or family members have had with sedatives and anesthetic medicines. ??? Any blood disorders you have. ??? Any surgeries you have had. ??? Any medical conditions you have, such as sleep apnea. ??? Whether you are or may be . ??? Any use of cigarettes, alcohol, marijuana, or drugs. What are the risks? Generally, this is a safe procedure. However, problems may occur, including: ??? Getting too much medicine (oversedation). ??? Nausea. ??? Allergic reaction to medicines. ??? Trouble breathing. If this happens, a breathing tube may be used. It will be removed when you are awake and breathing on your own. ??? Heart trouble. ??? Lung trouble. ??? Confusion that gets better with time (emergence delirium). What happens before the procedure? Staying hydrated Follow instructions from your health care provider about hydration, which may include: ??? Up to 2 hours before the procedure ??? you may continue to drink clear liquids, such as water, clear fruit juice, black coffee, and plain tea. Eating and drinking restrictions Follow instructions from your health care provider about eating and drinking, which may include: ??? 8 hours before the procedure ??? stop eating heavy meals or foods, such as meat, fried foods, or fatty foods. ??? 6 hours before the procedure ??? stop eating light meals or foods, such as toast or cereal. ??? 6 hours before the procedure ??? stop drinking milk or drinks that contain milk. ??? 2 hours before the procedure ??? stop drinking clear liquids. Medicines Ask your health care provider about: ??? Changing or stopping your regular medicines. This is especially important if you are taking diabetes medicines or blood thinners. ??? Taking medicines such as aspirin and ibuprofen. These medicines can thin your blood. Do not take these medicines unless your health care provider tells you to take them. ??? Taking fdep-xto-anbuawk medicines, vitamins, herbs, and supplements. Tests and exams ??? You will have a physical exam. ??? You may have blood tests done to show how well: ??? Your kidneys and liver work. ??? Your blood clots. General instructions ??? Plan to have a responsible adult take you home from the hospital or clinic. ??? If you will be going home right after the procedure, plan to have a responsible adult care for you for the time you are told. This is important. What happens during the procedure? You will be given the sedative. The sedative may be given: ??? As a pill that you will swallow. It can also be inserted into the rectum. ??? As a spray through the nose. ??? As an injection into the muscle. ??? As an injection into the vein through an IV. ??? You may be given oxygen as needed. ??? Your breathing, heart rate, and blood pressure will be monitored during the procedure. ??? The medical or dental procedure will be done. The procedure may vary among health care providers and hospitals. What happens after the procedure? Your blood pressure, heart rate, breathing rate, and blood oxygen level will be monitored untilyou leave the hospital or clinic. ??? You will get fluids through your IV if needed. ??? Do not drive or operate machinery until your health care provider says that it is safe. Summary ??? Sedation is the use of medicines to promote relaxation and to relieve discomfort and anxiety. Moderate conscious sedation is a type of sedation that is used during short medical and dental procedures. ??? Tell the health care provider about any medical conditions that you have and about all the medicines that you are taking. ??? You will be given the sedative as a pill, a spray through the nose, an injection into the muscle, or an injection into the vein through an IV. Vital signs are monitored during the sedation. ??? Moderate conscious sedation allows you to return to your regular activities sooner. This information is not intended to replace advice given to you by your health care provider. Make sure you discuss any questions you have with your health care provider. Document Revised: 05/23/2020 Document Reviewed: 12/20/2019 [employer] Patient Education ?? 2021 [employer]. 08/31/2022 12:48:22 Angiogram, Care After Angiogram, Care After This sheet gives you information about how to care for yourself after your procedure. Your health care provider may also give you more specific instructions. If you have problems or questions, contact your health care provider. What can I expect after the procedure? After the procedure, it is common to have: ??? Bruising and tenderness at the catheter insertion area. ??? A collection of blood (hematoma) at the insertion area. This may feel like a small lump under the skin at the insertion site. Follow these instructions at home: Insertion site care ??? Follow instructions from your health care provider about how to take care of your insertion site. Make sure you: ??? Wash your hands with soap and water before and after you change your bandage (dressing). If soap and water are not available, use hand guardian ad litem. ??? Change your dressing as told by your health care provider. ??? Do not take baths, swim, or use a hot tub until your health care provider approves. ??? You may shower 24???48 hours after the procedure, or as told by your health care provider. To clean the insertion site: ??? Gently wash the area with plain soap and water. ??? Pat the area dry with a clean towel. ??? Do not rub the site. This may cause bleeding. ??? Check your insertion site every day for signs of infection. Check for: ??? Redness, swelling, or pain. ??? Fluid or blood. ??? Warmth. ??? Pus or a bad smell. ??? Do not apply powder or lotion to the site. Keep the site clean and dry. Activity ??? Do not drive for 24 hours if you were given a sedative during your procedure. ??? Rest as told by your health care provider, usually for 1???2 days. ??? Do not lift anything that is heavier than 10 lb (4.5 kg), or the limit that you are told, untilyour health care provider says that it is safe. ??? If the insertion site was in your leg, try to avoid stairs for a few days. ??? Return to your normal activities as told by your health care provider, usually in about a week.Ask your health care provider what activities are safe for you. General instructions ??? If your insertion site starts bleeding, lie flat and put pressure on the site. If the bleeding does not stop, get help right away. This is a medical emergency. ??? Take lmtf-don-oyjzchz and prescription medicines only as told by your health care provider. ??? Drink enough fluid to keep your urine pale yellow. This helps flush the contrast dye from your body. ??? Keep all follow-up visits as told by your health care provider. This is important. Contact a health care provider if: ??? You have a fever or chills. ??? You have redness, swelling, or pain around your insertion site. ??? You have fluid or blood coming from your insertion site. ??? Your insertion site feels warm to the touch. ??? You have pus or a bad smell coming from your insertion site. ??? You have more bruising around the insertion site. Get help right away if you have: ??? A problem with the insertion area, such as: ??? The area swells fast or bleeds even after you apply pressure. ??? The area becomes pale, cool, tingly, or numb. ??? Chest pain. ??? Trouble breathing. ??? A rash. ??? Any symptoms of a stroke. BE FAST is an easy way to remember the main warning signs of a stroke: ??? B - Balance. Signs are dizziness, sudden trouble walking, or loss of balance. ??? E - Eyes. Signs are trouble seeing or a sudden change in vision. ??? F - Face. Signs are sudden weakness or loss of feeling of the face, or the face or eyelid drooping on one side. ??? A - Arms. Signs are weakness or loss of feeling in an arm. This happens suddenly and usually onone side of the body. ??? S - Speech. Signs are sudden trouble speaking, slurred speech, or trouble understanding what people say. ??? T - Time. Time to call emergency services. Write down what time symptoms started. ??? You have other signs of a stroke, such as: ??? A sudden, severe headache with no known cause. ??? Nausea or vomiting. ??? Seizure. These symptoms may represent a serious problem that is an emergency. Do not wait to see if the symptoms will go away. Get medical help right away. Call your local emergency services (911 in the [place] Do not drive yourself to the hospital. Summary ??? It is common to have bruising and tenderness at the catheter insertion area. ??? Do not take baths, swim, or use a hot tub until your health care provider approves. You may shower 24???48 hours after the procedure or as told. ??? It is important to rest and drink plenty of fluids. ??? If the insertion site bleeds, lie flat and put pressure on the site. If the bleeding continues,get help right away. This is a medical emergency. This information is not intended to replace advice given to you by your health care provider. Make sure you discuss any questions you have with your health care provider. Document Revised: 11/28/2019 Document Reviewed: 11/28/2019 [employer] Patient Education ?? 2021 [employer] Progress note * Tanner Gomez MD: VERIFY, PERFORM, SIGN Event Display: Progress Notes Authored Date: [id number] Patient: ABDULLAHI WILSON Age: 66 years Sex: Male : 1955 Associated Diagnoses: None Author: Tanner Gomez MD Postoperative Information Preoperative Diagnosis: Preop Dx (ST) SN - GCD - Preop Diagnosis: Liver CA (08/31/22 07:54:44). Postoperative Diagnosis: Postop Dx (ST) SN - GCD - Post Op Diagnosis: Liver CA (08/31/22 07:54:44). Procedure: Procedure (ST) SN - SgP - Procedure: IR Y-90 Mapping Procedure (08/31/22). Performed by: Primary Surgeon (ST) Surgeon - Primary: Tanner Gomez MD . Equipment Operat0R: Physician's Equipment Operat0R (ST) No [employer] And [employer] Found . Anesthetic Used: Anesthesia Type (ST) SN - SgP - Anesthesia Type: 0-MOD SED-Nurse Adm (08/31/22). Findings: sr. Specimens Removed: Specimens (ST) No Specimens Taken. Estimated Blood Loss: 0 ml. Complications: None. Description of Techniques: Standard. Implants/Grafts: Implant (ST) SN - [place] - Implant Description: 5x14 Cook Loc Coil (08/31/22) SN - IL - Implant Description: 6x14mm Cook Loc Coil (08/31/22) SN - [place] - Implant Description: Microvention Microplex 18 6mm/20cm (08/31/22). Final Count Verification: SN - FCV (ST) No final counts done. Electronically signed by:Tanner Gomez MD 08/31/22 19:19 Radiology * Ajay Carpenter MD: PERFORM, TRANSCRIBE, VERIFY, VERIFY Event Display: Report Authored Date: [id number] Radiologist Ajay Carpenter MD Signed 08/31/22 13:06:49 (Electronic Signature) Store Worker [employer] Technologist JL,CW Note * Ajay Carpenter MD: PERFORM, TRANSCRIBE, VERIFY, VERIFY Event Display: [employer] Read Authored Date: [id number] Exam: NM Liver SPECT/CT MAA Mapping Date/Time of Exam: 08/31/2022 12:10 PM Clinical indication: Liver CA. Diagnosis Codes: Comparison: Outside CT abdomen and pelvis, 03/12/2022 Reading Location: [place] [address] \\ [id number] Radiopharmaceutical: Technetium 99m MAA Dose: 5.2 mCi intra-arterial Procedure: Tc99m MAA was injected into the left hepatic artery by Dr. Gomez for the purpose of blood flow mapping and lung shunt determination, prior to treatment with Y90 Sir-Spheres. After injection of tracer, the patient was transported to the nuclear medicine department. Anterior and posterior planar images of the chest and liver were obtained followed by SPECT-CT imaging of the liver. Findings: Normal distribution of tracer in the liver. Other than lung activity, no convincing extrahepatic activity can be identified. . Visually, there is minimal lung activity identified. The calculated lungshunt is 1.4%. IMPRESSION: 1. Injection of Tc99m MAA into the right hepatic artery results in normal expected distribution of activity in the liver. Other than lung activity, there is no evidence for extrahepatic perfusion. 2. Visually, there is minimal lung activity identified. The calculated lung shunt is 1.4%. Electronically signed by: Dr. Ajay Carpenter 08/31/2022 1:06 PM Radiologist Ajay Carpenter MD Signed 08/31/22 13:06:49 (Electronic Signature) Store Worker W[employer] Technologist ANDREA RUIZ Patient Care team information Care Team Related Persons Name: AUSTIN WILSON Address: home [address] [id number]
[2022-09-14 10:42] VITALS: BP 124/69; PULSE 96; RESP 18; TEMP 36.8; O2SAT 92
== END 2022-10-07 23:59 | disposition home or self-care (01) ==
PROVIDERS: PCP Emergency Medicine Emergency Medical Services; Visit Provider Internal Medicine Medical Oncology
DX: Z45.2 Encounter for adjustment and management of vascular access device (principal)
CPT/HCPCS: 96523; J1642

== ENCOUNTER 2022-11-18 10:48 | Oncology outpatient (recurring) (ONCR) | payer OTHER, SELFPAY ==
[2022-11-18 11:24] VITALS: BMI 23.8
[2022-11-18 11:25] VITALS: BP 116/72; PULSE 82; RESP 17; TEMP 37; O2SAT 95
[2022-11-18 11:27] LABS: Basophils % 0.7 %; Eosinophils # 0.5 10^3/uL (0.0-0.8); Eosinophils % 8.8 %; Hematocrit 40.5 % (37-53); Lymphocytes # 1.4 10^3/uL (0.8-4.8); Lymphocytes % 22.5 %; Mean Corpuscular HGB Conc 32.1 g/dL (30-55); Mean Corpuscular Hemoglobin 30.7 pg (27-33); Mean Corpuscular Volume 95.7 fl (82-101); Mean Platelet Volume 10.6 fL (7.4-10.4); Monocytes # 0.5 10^3/uL (0.2-0.9); Monocytes % 8.7 %; Neutrophils # 3.56 10^3/uL (1.8-7.7); Neutrophils % 59.1 %; Nucleated Red Blood Cells % 0 %; Platelet Count 149 10^3/cmm (157-399); Red Blood Count 4.23 10^6/uL (3.85-5.65); Red Cell Distribution Width 14.1 % (12.1-15.1); White Blood Count 6.01 10^3/uL (3.29-11.43)
[2022-11-18 11:40] VITALS: BP 116/72; PULSE 82; RESP 17; TEMP 37; O2SAT 95
[2022-11-18 11:45] LABS: Alanine Aminotransferase 11 U/L (0-41); Albumin Level 3.8 g/dL (3.5-5.2); Alkaline Phosphatase 86 U/L (40-130); Anion Gap 12.3 (5-19); Aspartate Amino Transferase 17 U/L (0-40); Blood Urea Nitrogen 9 mg/dL (8-23); Calcium 9.1 mg/dL (8.5-10.5); Carbon Dioxide 27 mmol/L (22-29); Chloride 103 mmol/L (98-107); Globulin 3.9 g/dL (1.3-4.6); Glomerular Filtration Rate 83.7 mL/min (90-130); Glucose 105 mg/dL (65-115); Osmolality Calculated 285 mOsm/kg (285-295); Potassium 4.3 mmol/L (3.5-5.1); Sodium 138 mmol/L (136-145); Total Bilirubin 0.4 mg/dL (0.15-1.2); Total Protein 7.7 g/dL (6.6-8.7)
== END 2022-12-07 23:59 | disposition home or self-care (01) ==
PROVIDERS: PCP Emergency Medicine Emergency Medical Services; Visit Provider Internal Medicine Medical Oncology
DX: Z45.2 Encounter for adjustment and management of vascular access device (principal); C78.02 Secondary malignant neoplasm of left lung; C79.31 Secondary malignant neoplasm of brain; C78.7 Secondary malignant neoplasm of liver and intrahepatic bile duct; F17.210 Nicotine dependence, cigarettes, uncomplicated; Z79.899 Other long term (current) drug therapy; Z92.21 Personal history of antineoplastic chemotherapy; Z92.3 Personal history of irradiation; C34.12 Malignant neoplasm of upper lobe, left bronchus or lung; C34.01 Malignant neoplasm of right main bronchus; Z95.828 Presence of other vascular implants and grafts
CPT/HCPCS: 36591; 80053; 85025; 99214; J1642

== ENCOUNTER 2023-01-23 17:03 | Inpatient (IN) | payer OTHER, SELFPAY ==
[2023-01-23] VITALS (17 sets, daily range): BP systolic 124–171; BP diastolic 59–105; PULSE 84–123; RESP 18–35; TEMP 36.9–39.5; O2SAT 82–94; BMI 25.8
--- NOTE | 2023-01-23 17:20 | XRR_ITS ---
PROCEDURE INFORMATION: Exam: XR Chest Exam date and time: 01/23/2023 6:03 PM Age: 67 years old Clinical indication: Patient HX: Cough; SOB; Low o2 sat; Fever TECHNIQUE: Imaging protocol: Radiologic exam of the chest. Views: 1 view. COMPARISON: CT chest w con* [id number] 06/01/2022 4:40 PM FINDINGS: Lungs: Similar right perihilar fullness. No focal consolidation. Interstitial changes are likely chronic. Pleural spaces: Small left pleural effusion. No pneumothorax. Heart/Mediastinum: No cardiomegaly. Bones/joints: No acute findings. XR/XR chest 1V portable [id number] IMPRESSION: Small left pleural effusion.
--- NOTE | 2023-01-23 17:27 | ED_ITS ---
Documented by User: Briana Maria MD 01/23/23 17:48 HPI - SOB/Dyspnea 2 General: Chief Complaint: Shortness of Breath/Dyspnea Stated Complaint: SOB, coughing Time Seen by Provider: 01/23/23 17:18 Source: patient Mode of arrival: ambulatory Limitations: no limitations History of Present Illness: HPI Narrative: 67-year-old male who had a history of yamini ng cancer and had a lobectomy currently has a liver mass he is not on chemo or radiation states that this morning he started having severe shortness of breath fever along with a cough. He does have a history of COPD is still a smoker. He does not wear oxygen at home is requiring 4 L here. He is febrile here as well denies any worsening proving factors. Associated symptoms: Reports fever(s); Deny abdominal pain, chest pain, nausea or vomiting Review of Systems 2 Const: Reports: fever(s), chills and body aches; Denies: change in appetite Eyes: Denies: blurry vision or eye discomfort ENMT: Denies: throat pain or dental pain Card: Denies: chest pain Resp: Reports: non-productive cough; Denies: dyspnea GI: Denies: abdominal pain, nausea, vomiting or diarrhea : Denies: dysuria Musc: Denies: neck pain or back pain Skin/Breast: Denies: rash Neuro: Denies: headache(s) PFSH ED 2 PFSH: Medical History Chronic anxiety PTSD (post-traumatic stress disorder) Dyslipidemia Coronary artery disease History of nonmelanoma skin cancer Lung cancer metastatic to brain COPD (chronic obstructive pulmonary disease) HTN (hypertension) Arthritis Allergies Aortic aneurysm History of hepatitis C Surgical History History of cataract extraction Right eye, 2021 H/O colonoscopy 3 yrs ago H/O aortic aneurysm repair H/O circumcision S/P lobectomy of lung H/O hernia repair Family History Father Cancer Family/Other CAD (coronary artery disease) Cancer Grandfather Cancer Mother Brain aneurysm Denies family history of Anesthesia complication Bleeding disorder Social History Smoking and tobacco/nicotine status: current every day tobacco/nicotine user (0.5 ppd, smoked x 50 years) cigarettes Years cigarettes smoked: 50 [ Other cigarette details: Hx of 2PPD x 50 Years] Quit status (tobacco/nicotine): considering quitting Alcohol intake: current Alcohol intake frequency: 0-2 Drinks per Day Alcohol type: beer Substance/Drug Use: never Lives independently: Yes Household members: spouse Marital status: service: Yes Current occupational status: disabled Do you think of yourself as: Straight/Heterosexual Current gender identity: Male Physical Exam 2 Const: COMMON NORMALS: patient oriented x3 GENERAL APPEARANCE: ill appearing HENMT: COMMON NORMALS: normocephalic and atraumatic HEAD & SCALP: n ormocephalic and atraumatic Neck/C-Spine: COMMON NORMALS: full ROM and supple Chest: COMMONS NORMALS: normal inspection of the chest and normal palpation of entire chest wall Resp: COMMON NORMALS: No retractions EFFORT & INSPECTION: Yes respiratory distress AUSCULTATION: wheezes Cardio: COMMON NORMALS: regular rhythm and No murmurs present (Cardio) R ATE: tachycardic RHYTHM: regular rhythm GI: COMMON NORMALS: Normal to inspection, nondistended, normoactive bowel sounds present, Soft to palpation, non-tender and no masses PALPATION: Yes Soft to palpation Extremity: COMMON NORMALS: normal to inspection and full ROM Neuro: COMMON NORMALS: patient oriented x3, moves all extremities and no focal motor deficits Psych: COMMON NORMALS: mental status grossly normal, Normal thought process present and cooperative THOUGHT PROCESS: Normal thought process present Skin: COMMON NORMALS: no rashes or lesions noted and no wounds GENERAL SKIN EXAM: no rashes or lesions noted Course 2 Vital Signs: Vital signs: Vital Signs Temperature 98.5 F 01/23/23 21:45 Pulse Rate 84 01/23/23 23:30 Respiratory Rate 33 H 01/23/23 23:30 Blood Pressure 138/64 01/23/23 23:30 Pulse Oximetry 94 01/23/23 23:30 Oxygen Delivery Me thod Nasal Cannula 01/23/23 23:30 Oxygen Flow Rate 5 01/23/23 23:30 MDM - SOB/Dyspnea Medical Records I reviewed the patient's medical records. Lab Data I reviewed the patient's lab results. 01/23/23 17:28 12/17/23 17:28 Labs/Radiology: Radiology Impressions Chest X-Ray 01/23/23 17:20 IMPRESSION: Small left pleural effusion. Chest CTA 01/23/23 19:12 IMPRESSION: 1. Interval appearance of moderate bilateral lower lobe pneumonia with cofc-ne-ossspbxg right middle lobe pneumonia. 2. Stable right perihilar surgical clips. 3. Interval increased size of 2.6 x 2.3 x 1.9 cm right hilar soft tissue lesion. Recurrent right lung neoplasm versus reactive adenopathy. Axial series 16, images 236-250. Correlation with nonemergent PET-CT scan may be helpful. 4. Interval appearance of 4.8 cm low-density lesion lateral segment left liver consistent with solitary liver metastasis versus hepatic abscess. 5. Near occlusive segmental pulmonary emboli in the medial and lateral RML segmental pulmonary arteries. 6. Occlusive segmental right lower lobe pulmonary embolus versus more likely chronic sequela from radiation therapy, axial series 16, images 23-289. 7. Mild right heart strain with RV/LV ratio 1.0. ADDENDUM: 01/23/232050 Impression: 4. Compared with CT abdomen pelvis with and without contrast dated March 12, 2022, possibly stable 4.7 cm lateral segment left lobe liver lesion which was previously thought to be hepatic hemangioma. THIS REPORT CONTAINS FINDINGS THAT MAY BE CRITICAL TO PATIENT CARE. The findings were verbally communicated via telephone conference with DAVIS PRECIADO at 8:50 PM HUMAN RESOURCES SUPPORT SPECIALIST on 01/23/2023. The findings were acknowledged and understood. Laboratory Results WBC 4.38 10^3/uL (3.29-11.43) 01/23/23 17: RBC 4.60 10^6/uL (3.85-5.65) 01/23/23 17: Hgb 14.10 g/dL (11.27-16.99) 01/23/23 17: Hct 43.9 % (37-53) 01/23/23 17: MCV 95.4 fl (82-101) 01/23/23 17: MCH 30.7 pg (27-33) 01/23/23 17: MCHC 32.1 g/dL (30-55) 01/23/23 17: RDW 15.9 % (12.1-15.1) H 01/23/23: Plt Count 122 10^3/cmm (157-399) L 01/23/23 MPV 10.6 fL (7.4-10.4) H 01/23/23: Neut % (Auto) 85.8 % 01/23/23: Lymph % (Auto) 7.8 % 01/23/23: [place] % (Auto) 5.5 % 01/23/23: Eos % (Auto) 0.5 % 01/23/23: Baso % (Auto) 0.2 % 01/23/23 Neut # (Auto) 3.76 10^3/uL (1.8-7.7) 01/23/23 Lymph # (Auto) 0.3 10^3/uL (0.8-4.8) L 01/23/23: [place] # (Auto) 0.2 10^3/uL (0.2-0.9) 01/23/23: Eos # (Auto) 0.0 10^3/uL (0.0-0.8) 01/23/23: Baso # (Auto) 0.0 10^3/uL (0.0-0.1) 01/23/23 Nucleated RBC % (auto) 0 % 01/23/23 Nucleated RBCs # 0.0 /100WBC 01/23/23: PT 14.70 SECONDS (12.1-14.9) 01/23/23: INR 1.12 (0.8-1.2) 01/23/23: Specimen Type Arterial 01/23/23: Sample Site Brachial, right 01/23/23 17: ABG pH 7.44 (7.35-7.45) 01/23/23 17: ABG pCO2 39.3 mmHg (35-45) 01/23/23 17: ABG pO2 52.3 mmHg (80.0-100.0) L 01/23/23: ABG PO2/FiO2 Ratio 0 01/23/23: ABG HCO3 26.5 mmol/L (22-26) H 12/17/23 17:38 ABG Base Excess 2.2 mmol/L (-2.0-2.0) H 01/23/23 17:38 Usama Test N/a 01/23/23 17:38 Hematocrit 41.8 % (42-52) L 01/23/23 17:38 Hgb O2 Saturation 85.8 % (95-100) L 01/23/23 17:38 Carboxyhemoglobin 5.2 %THgb (0.4-20.1) 01/23/23 17:38 Methemoglobin 0.6 % (0.4-1.5) 01/23/23 17:38 Total Hemoglobin 13.6 g/dL (14-18) L 01/23/23 17:38 O2 Delivery Device Nc 01/23/23 17:38 O2 Liters/Min 6.0 % 01/23/23 17:38 FiO2 44.0 % 01/23/23 17:38 Production Or Plant Engineer ID [email or web address] 01/23/23 17:38 Sodium 136 mmol/L (136-145) 01/23/23 17:28 Potassium 3.8 mmol/L (3.5-5.1) 01/23/23 17:28 Chloride 98 mmol/L (98-107) 01/23/23 17:28 Carbon Dioxide 26 mmol/L (22-29) 01/23/23 17:28 Anion Gap 15.8 (5-19) 01/23/23 17:28 BUN 10 mg/dL (8-23) 01/23/23 17:28 Creatinine 1.1 mg/dL (0.7-1.2) 01/23/23 17:28 GFR Calculation 66.4 mL/min (90-130) L 01/23/23 17:28 Glucose 122 mg/dL (65-115) H 01/23/23 17:28 Calculated Osmolality 282 mOsm/kg (285-295) L 01/23/23 17:28 Lactic Acid 1.6 mmol/L (0.5-2.2) 01/23/23 17:28 Calcium 8.9 mg/dL (8.5-10.5) 01/23/23 17:28 Total Bilirubin 0.4 mg/dL (0.15-1.2) 01/23/23 17:28 AST 20 U/L (0-40) 01/23/23 17:28 ALT 9 U/L (0-41) 01/23/23 17:28 Alkaline Phosphatase 101 U/L (40-130) 01/23/23 17:28 NT-Pro-B Natriuret Pep 1317 pg/mL (0-125) H 01/23/23 17:28 Total Protein 8.1 g/dL (6.6-8.7) 01/23/23 17:28 Albumin 4.1 g/dL (3.5-5.2) 01/23/23 17:28 Globulin 4.0 g/dL (1.3-4.6) 01/23/23 17:28 Urine Color Yellow (Yellow) 01/23/23 18:55 Urine Appearance Clear (CLEAR) 01/23/23 18:55 Urine pH 7 (5-7) 01/23/23 18:55 Ur Specific [place] 1.005 (1.005-1.030) 01/23/23 18:55 Urine Protein Neg (Negative) 01/23/23 18:55 Urine Glucose (UA) Norm (Normal) 01/23/23 18:55 Urine Ketones Negative (Negative) 01/23/23 18:55 Urine Blood Neg (Negative) 01/23/23 18:55 Urine Nitrate Negative (Negative) 01/23/23 18:55 Urine Bilirubin Neg (Negative) 01/23/23 18:55 Urine Urobilinogen Norm mg/dL (Negative) 01/23/23 18:55 Ur Leukocyte Esterase Negative (Negative) 01/23/23 18:55 Influenza Type A Ag negative (Negative) 01/23/23 18:01 Influenza Type B Ag negative (Negative) 01/23/23 18:01 SARS-CoV-2 Ag (Rapid) negative (Negative) 01/23/23 18:01 All radiology interpretation(s) finalized by discharge EKG Data EKG 1: I personally reviewed and interpreted this EKG as follows: EKG Interpretation Date: 01/23/23 EKG interpretation time: 17:41 Interpretation: sinus tach hr [address] elevation qrs 134 qtc 404 Discharge Plan Discharge Patient Disposition: Admitted As Inpatient Admit Provider: Dania Sorto Clinical Impression: Pulmonary embolism, Community acquired pneumonia, Acute hypoxic respiratory failure Condition: Stable Coding Level of Care Code ED Greaser Helper for Chg Fwd Documented by User: Davis Padilla Bruce, DO 01/24/23 00:04 HPI - SOB/Dyspnea 2 General: Chief Complaint: Shortness of Breath/Dyspnea Stated Complaint: SOB, coughing Time Seen by Provider: 01/23/23 17:18 PFSH ED 2 PFSH: Medical History Chronic anxiety PTSD (post-traumatic stress disorder) Dyslipidemia Coronary artery disease History of nonmelanoma skin cancer Lung cancer metastatic to brain COPD (chronic obstructive pulmonary disease) HTN (hypertension) Arthritis Allergies Aortic aneurysm History of hepatitis C Surgical History History of cataract extraction Right eye, 2021 H/O colonoscopy 3 yrs ago H/O aortic aneurysm repair H/O circumcision S/P lobectomy of lung H/O hernia repair Family History Father Cancer Family/Other CAD (coronary artery disease) Cancer Grandfather Cancer Mother Brain aneurysm Denies family history of Anesthesia complication Bleeding disorder Social History Smoking and tobacco/nicotine status: current every day tobacco/nicotine user (0.5 ppd, smoked x 50 years) cigarettes Years cigarettes smoked: 50 [ Other cigarette details: Hx of 2PPD x 50 Years] Quit status (tobacco/nicotine): considering quitting Alcohol intake: current Alcohol intake frequency: 0-2 Drinks per Day Alcohol type: beer Substance/Drug Use: never Lives independently: Yes Household members: spouse Marital status: service: Yes Current occupational status: disabled Do you think of yourself as: Straight/Heterosexual Current gender identity: Male Course 2 Vital Signs: Vital signs: Vital Signs Temperature 98.5 F 01/23/23 21:45 Pulse Rate 84 01/23/23 23:30 Respiratory Rate 33 H 12/17/23 23:30 Blood Pressure 138/64 12/17/23 23:30 Pulse Oximetry 94 01/23/23 23:30 Oxygen Delivery Me thod Nasal Cannula 01/23/23 23:30 Oxygen Flow Rate 5 01/23/23 23:30 MDM - SOB/Dyspnea Medical Decision Making 67-year-old male checked out by the previous physician at shift change. This gentleman presents with a 103 fever, tachycardic. White count is normal. Blood pressure has normalized. Platelet count is 122 which has been chronic. CTA of the chest shows moderate bilateral lower lobe pneumonia with right middle lobe pneumonia. It also shows near occlusive segmental pulmonary emboli. Minimal right heart strain. Patient is given Lovenox. He is given antibiotics. He will be admitted. Hospitalist has seen the patient. Lab Data 01/23/23 17:28 01/23/23 17:28 Labs/Radiology: Radiology Impressions Chest X-Ray 01/23/23 17:20 IMPRESSION: Small left pleural effusion. Chest CTA 01/23/23 19:12 IMPRESSION: 1. Interval appearance of moderate bilateral lower lobe pneumonia with upgr-jz-kfamhpcf right middle lobe pneumonia. 2. Stable right perihilar surgical clips. 3. Interval increased size of 2.6 x 2.3 x 1.9 cm right hilar soft tissue lesion. Recurrent right lung neoplasm versus reactive adenopathy. Axial series 16, images 236-250. Correlation with nonemergent PET-CT scan may be helpful. 4. Interval appearance of 4.8 cm low-density lesion lateral segment left liver consistent with solitary liver metastasis versus hepatic abscess. 5. Near occlusive segmental pulmonary emboli in the medial and lateral RML segmental pulmonary arteries. 6. Occlusive segmental right lower lobe pulmonary embolus versus more likely chronic sequela from radiation therapy, axial series 16, images 23-289. 7. Mild right heart strain with RV/LV ratio 1.0. ADDENDUM: 01/23/232050 Impression: 4. Compared with CT abdomen pelvis with and without contrast dated March 12, 2022, possibly stable 4.7 cm lateral segment left lobe liver lesion which was previously thought to be hepatic hemangioma. THIS REPORT CONTAINS FINDINGS THAT MAY BE CRITICAL TO PATIENT CARE. The findings were verbally communicated via telephone conference with DAVIS PRECIADO at 8:50 PM HUMAN RESOURCES SUPPORT SPECIALIST on 01/23/2023. The findings were acknowledged and understood. Laboratory Results WBC 4.38 10^3/uL (3.29-11.43) 01/23/23: RBC 4.60 10^6/uL (3.85-5.65) 01/23/23: Hgb 14.10 g/dL (11.27-16.99) 01/23/23: Hct 43.9 % (37-53) 01/23/23: MCV 95.4 fl (82-101) 01/23/23: MCH 30.7 pg (27-33) 01/23/23: MCHC 32.1 g/dL (30-55) 01/23/23 RDW 15.9 % (12.1-15.1) H 01/23/23: Plt Count 122 10^3/cmm (157-399) L 01/23/23: MPV 10.6 fL (7.4-10.4) H 01/23/23: Neut % (Auto) 85.8 % 01/23/23: Lymph % (Auto) 7.8 % 01/23/23: [place] % (Auto) 5.5 % 01/23/23: Eos % (Auto) 0.5 % 01/23/23: Baso % (Auto) 0.2 % 01/23/23 Neut # (Auto) 3.76 10^3/uL (1.8-7.7) 01/23/23: Lymph # (Auto) 0.3 10^3/uL (0.8-4.8) L 01/23/23: [place] # (Auto) 0.2 10^3/uL (0.2-0.9) 01/23/23: Eos # (Auto) 0.0 10^3/uL (0.0-0.8) 01/23/23: Baso # (Auto) 0.0 10^3/uL (0.0-0.1) 01/23/23: Nucleated RBC % (auto) 0 % 01/23/23: Nucleated RBCs # 0.0 /100WBC 01/23/23: PT 14.70 SECONDS (12.1-14.9) 01/23/23 17:28 INR 1.12 (0.8-1.2) 01/23/23 17:28 Specimen Type Arterial 01/23/23 17:38 Sample Site Brachial, right 01/23/23 17:38 ABG pH 7.44 (7.35-7.45) 01/23/23 17:38 ABG pCO2 39.3 mmHg (35-45) 01/23/23 17:38 ABG pO2 52.3 mmHg (80.0-100.0) L 01/23/23 17:38 ABG PO2/FiO2 Ratio 0 01/23/23 17:38 ABG HCO3 26.5 mmol/L (22-26) H 01/23/23 17:38 ABG Base Excess 2.2 mmol/L (-2.0-2.0) H 01/23/23 17:38 Usama Test N/a 01/23/23 17:38 Hematocrit 41.8 % (42-52) L 01/23/23 17:38 Hgb O2 Saturation 85.8 % (95-100) L 01/23/23 17:38 Carboxyhemoglobin 5.2 %THgb (0.4-20.1) 01/23/23 17:38 Methemoglobin 0.6 % (0.4-1.5) 01/23/23 17:38 Total Hemoglobin 13.6 g/dL (14-18) L 01/23/23 17:38 O2 Delivery Device Nc 01/23/23 17:38 O2 Liters/Min 6.0 % 01/23/23 17:38 FiO2 44.0 % 01/23/23 17:38 Production Or Plant Engineer ID [id number] 01/23/23 17:38 Sodium 136 mmol/L (136-145) 01/23/23 17:28 Potassium 3.8 mmol/L (3.5-5.1) 01/23/23 17:28 Chloride 98 mmol/L (98-107) 01/23/23 17:28 Carbon Dioxide 26 mmol/L (22-29) 01/23/23 17:28 Anion Gap 15.8 (5-19) 01/23/23 17:28 BUN 10 mg/dL (8-23) 01/23/23 17:28 Creatinine 1.1 mg/dL (0.7-1.2) 01/23/23: GFR Calculation 66.4 mL/min (90-130) L 01/23/23 Glucose 122 mg/dL (65-115) H 01/23/23: Calculated Osmolality 282 mOsm/kg (285-295) L 01/23/23: Lactic Acid 1.6 mmol/L (0.5-2.2) 01/23/23: Calcium 8.9 mg/dL (8.5-10.5) 01/23/23: Total Bilirubin 0.4 mg/dL (0.15-1.2) 01/23/23: AST 20 U/L (0-40) 01/23/23 ALT 9 U/L (0-41) 01/23/23 Alkaline Phosphatase 101 U/L (40-130) 01/23/23: NT-Pro-B Natriuret Pep 1317 pg/mL (0-125) H 01/23/23 17: Total Protein 8.1 g/dL (6.6-8.7) 01/23/23: Albumin 4.1 g/dL (3.5-5.2) 01/23/23: Globulin 4.0 g/dL (1.3-4.6) 01/23/23 17: Urine Color Yellow (Yellow) 01/23/23 18:55 Urine Appearance Clear (CLEAR) 01/23/23 18:55 Urine pH 7 (5-7) 01/23/23 18:55 Ur Specific [place] 1.005 (1.005-1.030) 01/23/23 18:55 Urine Protein Neg (Negative) 01/23/23 18:55 Urine Glucose (UA) Norm (Normal) 01/23/23 18:55 Urine Ketones Negative (Negative) 01/23/23 18:55 Urine Blood Neg (Negative) 01/23/23 18:55 Urine Nitrate Negative (Negative) 01/23/23 18:55 Urine Bilirubin Neg (Negative) 01/23/23 18:55 Urine Urobilinogen Norm mg/dL (Negative) 01/23/23 18:55 Ur Leukocyte Esterase Negative (Negative) 01/23/23 18:55 Influenza Type A Ag negative (Negative) 01/23/23 18:01 Influenza Type B Ag negative (Negative) 01/23/23 18:01 SARS-CoV-2 Ag (Rapid) negative (Negative) 01/23/23 18:01 Discharge Plan Discharge Patient Disposition: Admitted As Inpatient Admit Provider: Dania Sorto Clinical Impression: Pulmonary embolism, Community acquired pneumonia, Acute hypoxic respiratory failure Condition: Stable Coding Level of Care Code ED Greaser Helper for Micah Vizcaino
[2023-01-23] MEDS: ipratropium-albuterol 3 mL Neb INHALATION (17:33)
[2023-01-23] MEDS: acetaminophen 500 mg Tablet 1000 MG PO (17:36)
[2023-01-23] MEDS: sodium chloride 0.9% 2,313.33 ML 2313.33 ML IV (17:38)
[2023-01-23] MEDS: methylPREDNISolone sod succ 125 mg/2 mL INJ IVP (17:38)
[2023-01-23 17:41] LABS: Basophils % 0.2 %; Eosinophils % 0.5 %; Hematocrit 43.9 % (37-53); Lymphocytes # 0.3 10^3/uL (0.8-4.8); Lymphocytes % 7.8 %; Mean Corpuscular HGB Conc 32.1 g/dL (30-55); Mean Corpuscular Hemoglobin 30.7 pg (27-33); Mean Corpuscular Volume 95.4 fl (82-101); Mean Platelet Volume 10.6 fL (7.4-10.4); Monocytes # 0.2 10^3/uL (0.2-0.9); Monocytes % 5.5 %; Neutrophils # 3.76 10^3/uL (1.8-7.7); Neutrophils % 85.8 %; Nucleated Red Blood Cells % 0 %; Platelet Count 122 10^3/cmm (157-399); Red Cell Distribution Width 15.9 % (12.1-15.1); White Blood Count 4.38 10^3/uL (3.29-11.43)
--- NOTE | 2023-01-23 17:41 | ECG_ITS ---
[facility] Test Date: 2023-01-23 Pat Name: Satish Fry Department: Room: Gender: Male Financial Cost Analyst: : 1955 Requested By: Briana Maria Order Number: [id number] Jacquie MD: Jaison Winters M.D. Measurements Intervals [place] Rate: 119 P: 42 HI: 144 QRS: -49 QRSD: 134 T: 62 QT: 333 QTc: 469 Interpretive Statements SINUS TACHYCARDIA RIGHT BUNDLE BRANCH BLOCK [120+ ms QRS DURATION, UPRIGHT V1, 40+ ms S IN I/aVL/V4/V5/V6] LEFT ANTERIOR FASCICULAR BLOCK [QRS AXIS <= -45, QR IN I, RS IN II] Compared to ECG 12/03/2020 12:00:00 Right bundle-branch block now present Left anterior fascicular block now present Left-axis deviation no longer present Electronically Signed On 01-23-2023 19:47:16 PACKING SUPERVISOR by Jaison Winters M.D. [email or web address]
[2023-01-23 17:49] LABS: ABG PCO2 39.3 mmHg (35-45); ABG PH Result 7.44 (7.35-7.45); Arterial Blood Gas Hematocrit 41.8 % (42-52); Base Excess ABG 2.2 mmol/L (-2.0-2.0); Blood Gas Operator Identificat AMH; Blood Gas Sample Site Brachial, right; Blood Gas Sample Type Arterial; Carboxyhemoglobin 5.2 %THgb (0.4-20.1); HCO3 ABG 26.5 mmol/L (22-26); HGB O2 Sat 85.8 % (95-100); Methemoglobin 0.6 % (0.4-1.5); Oxygen Device NC; PO2 ABG 52.3 mmHg (80.0-100.0); PO2 FiO2 Ratio Arterial Blood 0; Total Hemoglobin 13.6 g/dL (14-18)
[2023-01-23 17:50] LABS: INR 1.12 (0.8-1.2)
[2023-01-23] MEDS: cefTRIAXone 1,000 MG in sodium chloride 0.9% (plus) 50 ML 100 MG IV (17:54)
[2023-01-23] MEDS: azithromycin 500 MG in sodium chloride 0.9% 250 ML 250 MG IV (18:15)
[2023-01-23 18:27] LABS: Alanine Aminotransferase 9 U/L (0-41); Albumin Level 4.1 g/dL (3.5-5.2); Alkaline Phosphatase 101 U/L (40-130); Anion Gap 15.8 (5-19); Aspartate Amino Transferase 20 U/L (0-40); Blood Urea Nitrogen 10 mg/dL (8-23); Calcium 8.9 mg/dL (8.5-10.5); Carbon Dioxide 26 mmol/L (22-29); Chloride 98 mmol/L (98-107); Glomerular Filtration Rate 66.4 mL/min (90-130); Glucose 122 mg/dL (65-115); Osmolality Calculated 282 mOsm/kg (285-295); Potassium 3.8 mmol/L (3.5-5.1); Sodium 136 mmol/L (136-145); Total Bilirubin 0.4 mg/dL (0.15-1.2); Total Protein 8.1 g/dL (6.6-8.7)
[2023-01-23 18:33] LABS: Influenza A by IFA negative (Negative); Influenza B by IFA negative (Negative); SARS Covid-2 Antigen negative (Negative)
[2023-01-23 18:53] LABS: Lactic Sepsis W/Reflex 1.6 mmol/L (0.5-2.2)
[2023-01-23 19:02] LABS: Add Urine Microscopic? NO; Charge for UA Resulting for Rev
[2023-01-23 19:12] LABS: Urine Appearance Clear (CLEAR); Urine Color Yellow (Yellow)
--- NOTE | 2023-01-23 19:12 | CTR_ITS ---
PROCEDURE INFORMATION: Exam: CTA Chest With Contrast Exam date and time: 01/23/2023 7:27 PM Age: 67 years old Clinical indication: Shortness of breath; Prior surgery; Surgery date: 6+ months; Surgery type: Lobectomy. Port. Patient HX: SOB with hypoxia. History of lung cancer. ; Additional info: SOB hypoxic TECHNIQUE: Imaging protocol: Computed tomographic angiography of the chest with contrast. Exam focused on the arteries. 3D rendering (Not supervised by radiologist): MIP and/or 3D reconstructed images were created by the technologist. Radiation optimization: All CT scans at this facility use at least one of these dose optimization techniques: automated exposure control; mA and/or kV adjustment per patient size (includes targeted exams where dose is matched to clinical indication); or iterative reconstruction. Contrast material: OMNI 350; Contrast volume: 123 ml; Contrast route: INTRAVENOUS (IV); REPORTING DATA: Count of CT and Cardiac NM exams in prior 12 months: This patient has received 2 known CTs and 0 known cardiac nuclear medicine studies in the 12 months prior to the current study. COMPARISON: CT angio chest PE protcl [id number] 03/12/2020 11:48 AM RADIATION DOSE METRICS: Total DLP (mGy-cm): 647.21 FINDINGS: Pulmonary arteries: Nonocclusive segmental pulmonary emboli in the medial and lateral RML segmental pulmonary arteries. Occlusive segmental right lower lobe pulmonary embolus versus more likely chronic sequela from radiation therapy, axial series 16, images 23-289. Aorta: Calcification of the thoracic aorta and/or great vessels consistent with atherosclerotic vessel disease. Lungs: Interval appearance of moderate bilateral lower lobe pneumonia with coum-ks-mrgkmisz right middle lobe pneumonia. Stable right perihilar surgical clips. Pleural spaces: Unremarkable. No pneumothorax. No pleural effusion. Heart: Mild right heart strain with RV/LV ratio 1.0. Lymph nodes: See Soft tissues finding. Liver: Interval appearance of 4.8 cm low-density lesion lateral segment left liver consistent with solitary liver metastasis versus hepatic abscess. Bones/joints: Severe thoracic spondylosis. Soft tissues: Interval increased size of 2.6 x 2.3 x 1.9 cm right hilar soft tissue lesion. Recurrent neoplasm versus reactive adenopathy. Axial series 16, images 236-250. Correlation with nonemergent PET-CT scan may be helpful. CT/CT angio chest PE protcl [id number] IMPRESSION: 1. Interval appearance of moderate bilateral lower lobe pneumonia with mcda-fv-ltpdvhiq right middle lobe pneumonia. 2. Stable right perihilar surgical clips. 3. Interval increased size of 2.6 x 2.3 x 1.9 cm right hilar soft tissue lesion. Recurrent right lung neoplasm versus reactive adenopathy. Axial series 16, images 236-250. Correlation with nonemergent PET-CT scan may be helpful. 4. Interval appearance of 4.8 cm low-density lesion lateral segment left liver consistent with solitary liver metastasis versus hepatic abscess. 5. Near occlusive segmental pulmonary emboli in the medial and lateral RML segmental pulmonary arteries. 6. Occlusive segmental right lower lobe pulmonary embolus versus more likely chronic sequela from radiation therapy, axial series 16, images 23-289. 7. Mild right heart strain with RV/LV ratio 1.0.
[2023-01-23 19:13] LABS: Bilirubin Urine Neg (Negative); Blood Urine Neg (Negative); Glucose Urine UA Norm (Normal); Ketones Urine Negative (Negative); Leukocyte Esterase Urine Negative (Negative); Nitrate Urine Negative (Negative); Protein Urine Neg (Negative); Specific Gravity, Urine 1.005 (1.005-1.030); Urobilinogen Urine Norm (Negative); pH Urine 7 (5-7)
[2023-01-23] MEDS: iohexol 350 mg/mL 500 mL Btl (per mL) IV (19:37)
[2023-01-23 19:48] LABS: NT Pro B Type Natriuretic Pept 1317 pg/mL (0-125)
--- NOTE | 2023-01-23 20:34 | P.HP_ITS ---
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 His disease was stage IB (T2a, N0, M0) with pathology showing grade 3/4 adenocarcinoma measuring 3.1 x 3.0 x 2.6 cm. There was no involvement in a total of 14 lymph nodes. He has liver mets, history of brain mets(with good response to the radiotherapy), he received no further treatment, as there appeared to be no indication for postoperative chemotherapy or radiation presented to the hospital for fever and shortness of breath. Patient is stating that he is not undergoing chemoradiotherapy because there was no active indication as per the oncologist he had received radiotherapy for his liver mets as well at [facility]. Today he started experiencing shortness of breath which are associated with fever. This started all of a sudden in the morning, he has not experienced any chest pain, nausea, vomiting or any syncopal event. Because of worsening of his symptoms he decided to come to the hospital. Patient is stating that he does not use any oxygen at home, he is still smoking. In the ER he was diagnosed with pneumonia, febrile event, CTA revealed occlusive PE with right heart strain He is hemodynamically stable, I have started him on heparin drip, will transfer him to ICU Patient is full code Review of Systems 2 Const: Reports: fever(s) and chills Eyes: Denies: change in vision ENMT: Denies: throat pain Card: Reports: dyspnea on exertion; Denies: chest pain or swelling of feet/ankles Resp: Reports: dyspnea GI: Denies: abdominal pain : Denies: flank pain Musc: Denies: neck pain Medications/Allergies Home Medications Medication Instructions Recorded Confirmed Last Taken Type cetirizine 10 mg tablet (Zyrtec) 10 mg PO DAILY 06/19/19 11/18/22 10/02/19 History diphenhydramine HCl 25 mg tablet 25 mg PO BID PRN unknown 06/19/19 11/18/22 10/01/19 History (Benadryl Allergy) guaifenesin 400 mg tablet 400 mg PO BID PRN unknown 06/19/19 11/18/22 10/02/19 History tamsulosin 0.4 mg capsule 0.4 mg PO DAILY 06/19/19 11/18/22 10/02/19 History albuterol sulfate 2.5 mg/3 mL 2.5 mg inhalation Q6H PRN 07/20/19 11/18/22 10/02/19 History (0.083 %) solution for nebulization Shortness Of Breath albuterol sulfate 90 mcg/actuation 2 puff inhalation QID PRN 07/20/19 11/18/22 10/02/19 History aerosol inhaler (ProAir HFA) Shortness Of Breath tiotropium 2.5 mcg-olodaterol 2.5 2 puff inhalation DAILY #4 grams 08/07/19 11/18/22 10/02/19 Rx mcg/actuation mist for inhalation (Stiolto Respimat) mometasone 110 mcg/actuation(30 2 inh inhalation DAILY 90 days #3 09/25/19 11/18/22 10/02/19 Rx doses) breath activated powder ea inhaler (Asmanex Twisthaler) cholecalciferol (vitamin D3) 50 4,000 unit PO DAILY PRN 01/20/22 11/18/22 Unknown History mcg (2,000 unit) tablet (Vitamin D3) gabapentin 300 mg capsule 300 mg PO TID PRN 01/20/22 11/18/22 Unknown History omega-3 fatty acids 1,000 mg 1,000 mg PO DAILY PRN 01/20/22 11/18/22 Unknown History capsule (Fish Oil Concentrate) fluticasone propionate 50 1 spray intranasal BID PRN 05/20/22 11/18/22 Unknown History mcg/actuation nasal spray,suspension (Flonase Allergy Relief) naloxone 4 mg/actuation nasal 1 spray intranasal .Q2-3M PRN 07/01/22 11/18/22 Unknown Rx spray (Narcan) opioid overdose #2 ea osimertinib 40 mg tablet (Tagrisso) 80 mg (2 x 40 mg) PO DAILY #56 tabs 11/25/22 Unknown Rx alprazolam 0.5 mg tablet 0.5 mg PO TID PRN anxiety #90 tabs 12/27/22 Unknown Rx oxycodone 10 mg tablet See Rx Instructions PO QID PRN 01/03/23 Unknown Rx pain 30 days #150 tabs Allergies Allergy/AdvReac Type Severity Reaction Status Date / Time Penicillins Allergy Severe ALGY-Rash Verified 11/18/22 12:20 Scssujt-YUC-DrS Reductase Allergy Severe ALGY-Rash Verified 11/18/22 12:20 Inhibitor [Bobkkgq-Bto-Ppv Reductase Inhibitor] PFSH Acute 2 PFSH: Medical History Chronic anxiety PTSD (post-traumatic stress disorder) Dyslipidemia Coronary artery disease History of nonmelanoma skin cancer Lung cancer metastatic to brain COPD (chronic obstructive pulmonary disease) HTN (hypertension) Arthritis Allergies Aortic aneurysm History of hepatitis C Surgical History History of cataract extraction Right eye, 2021 H/O colonoscopy 3 yrs ago H/O aortic aneurysm repair H/O circumcision S/P lobectomy of lung H/O hernia repair Family History Father Cancer Family/Other CAD (coronary artery disease) Cancer Grandfather Cancer Mother Brain aneurysm Denies family history of Anesthesia complication Bleeding disorder Social History Smoking and tobacco/nicotine status: current every day tobacco/nicotine user (0.5 ppd, smoked x 50 years) cigarettes Years cigarettes smoked: 50 [ Other cigarette details: Hx of 2PPD x 50 Years] Quit status (tobacco/nicotine): considering quitting Alcohol intake: current Alcohol intake frequency: 0-2 Drinks per Day Alcohol type: beer Substance/Drug Use: never Lives independently: Yes Household members: spouse Marital status: service: Yes Current occupational status: disabled Do you think of yourself as: Straight/Heterosexual Current gender identity: Male Vitals/I&O/Wt Last Vital Signs Temp 103.1 F H 01/23/23 17:05 Pulse 100 01/23/23 20:19 Resp 18 01/23/23 20:19 BP 148/69 01/23/23 20:19 Pulse Ox 93 01/23/23 20:19 O2 Del Method Nasal Cannula 01/23/23 18:39 O2 Flow Rate 4 01/23/23 20:19 1201/23/23 01/23/23 06:59 14:59 22:59 Intake Total 50 / 50 Balance 50 / 50 Weight last 48 hrs Weight 77.111 kg Physical Exam 2 Narrative: Middle-aged male Appears more than stated age Currently on 5 L No active stridor or wheezing Mild signs of fluid overload Abdomen soft No active chest pain No acute respite distress No signs of cyanosis Nonfocal neuroexam Pleasant and cooperative S1, S2 Data 01/23/23 17:28 01/23/23 17:28 Micro: Microbiology 01/23/23 17:32 Blood Culture - Preliminary Blood SPECIMEN COLLECTED 01/23/23 17:28 Blood Culture - Preliminary Blood SPECIMEN COLLECTED A&P Assessment and plan (1) Secondary malignant neoplasm of liver and intrahepatic bile duct: (2) Secondary malignant neoplasm of brain: (3) Malignant neoplasm of right main bronchus: (4) Malignant neoplasm of upper lobe, left bronchus or lung: (5) Low back pain: (6) Nicotine addiction: (7) Pulmonary embolism: (8) Community acquired pneumonia: Plan Acute hypoxia Related to community-acquired pneumonia and pulmonary embolism No active signs of sepsis Start heparin I will keep patient on vancomycin and cefepime he seems to have allergy to penicillin Will request sputum culture CTA chest showing interval increase right hilar lymphadenopathy, please touch base with Dr. Grissom in the morning Patient has history of brain mets with good response to radiotherapy, I will start him on heparin drip and monitor in ICU Will request echo for right heart strain Patient is not complaining active chest pain Hemodynamically stable Patient has liver mets, has undergone treatment at [facility] Patient is full code Cardiac diet Monitor in ICU Will need to discuss with oncologist in the morning Review of records reveal patient's cancer history, treatment plan, Dr. Grissom's note was reviewed, as per the note there was no plan for chemo or radiotherapy at this point patient has been losing weight he lost about 20 pounds, his functional capacity has been decreasing, lives with his family, he is still smoking, Attestations 2 Medical Necessity Statement*: More than 2 midnights anticipated Diagnoses Secondary malignant neoplasm of liver and intrahepatic bile duct C78.7 Secondary malignant neoplasm of brain C79.31 Malignant neoplasm of right main bronchus C34.01 Malignant neoplasm of upper lobe, left bronchus or lung C34.12 Low back pain M54.5 Nicotine addiction F17.200 Pulmonary embolism I26.99 Community acquired pneumonia J18.9
--- NOTE | 2023-01-23 21:03 | PC.NURSE ---
at bedside and informed this nurse pt has a PE and is to transfer to the ICU. Primary care nurse notified. Pt AOX4 at this time and all questions and concerns answered at this time.
--- OUTSIDE RECORDS SUMMARY | 2023-01-23 21:07 | XMS_ITS | Continuity of Care Document ---
Author Name Unknown Organization [facility] Address 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 Name Role Phone Rico Winters DO Primary Care Physician Encounter [employer] Number [id number] Date(s): 09/28/22 - 09/28/22 [facility] [address] [place], [place] [address] [phone] Discharge Disposition: .Discharge to Home (Routine) Attending Physician: Ngoc ORR MD, Gino Goss Allergies, Adverse Reactions, Alerts Substance Reaction Severity Status penicillin Unknown Moderate Active Assessment and Plan Future Appointments Appointment Date:10/07/2022 01:30:00 PM Scheduled Provider: Location:[facility] Radiology Appointment Type:Surgery Future Scheduled Tests Laboratory* Alpha-Fetoprotein (AFP) Tumor Marker, Serum 06/16/22 * Hemogram 07/29/22 * CMP 07/29/22 Radiology* MR Abd w wo Contrast 06/16/22 * IR Consultation 08/16/22 [...] Confirmed Active Results Laboratory List Name Date BMP 09/28/22 CBC-d 09/28/22 Hepatic Function Panel 09/28/22 PTT 09/28/22 zCBC Automated Diff 09/28/22 Most recent to oldest [Reference Range]: 1 2 Anion Gap [2-15 mEq/L] 8 mEq/L (09/28/22 7:12 AM) iPT 12.1 sec 1 (09/28/22 9:01 AM) 12.1 sec 2 (09/28/22 8:42 AM) iINR 1.0 3 (09/28/22 9:01 AM) 1.0 4 (09/28/22 8:42 AM) eGFR CKD-EPI [>=61 mL/min/1.73 m2] 89 mL /min/1.73 m2 (09/28/22 7:12 AM) Glucose, Serum/Plasma [70-100 mg/dL] 100 mg/dL (09/28/22 7:12 AM) WBC [4.8-10.8 Thous/mm3] 5.3 Thous/mm3 (09/28/22 7:12 AM) Hct [42.0-52.0 %] 45.2 % (09/28/22 7:12 AM) Hgb [14.0-18.0 g/dL] 15.0 g/dL (09/28/22 7:12 AM) RBC [4.60-6.20 Million/mm3] 4.69 Million /mm3 (09/28/22 7:12 AM) MCV [80.0-100.0 fl] 96.4 fl (09/28/22 7:12 AM) MCH [26.0-34.0 pg] 32.0 pg (09/28/22 7:12 AM) MCHC [31.0-36.5 g/dL] 33.2 g/dL (09/28/22 7:12 AM) RDW [10.4-14.4 %] 14.6 % *HI* (09/28/22 7:12 AM) Platelets [130-440 Thous/mm3] 120 Thous/ mm3 *LOW* (09/28/22 7:12 AM) MPV [9.4-12.4 fl] 11.2 fl (09/28/22 7:12 AM) AutoNeutrophil [43.0-78.0 %] 53.2 % (09/28/22 7:12 AM) AutoLymphs [20.0-40.0 %] 26.0 % (09/28/22 7:12 AM) AutoMono [2.0-10.0 %] 11.4 % *HI* (09/28/22 7:12 AM) AutoEo [0.0-7.0 %] 8.6 % *HI* (09/28/22 7:12 AM) Sodium [136-145 mEq/L] 141 mEq/L (09/28/22 7:12 AM) Potassium [3.5-5.1 mEq/L] 3.5 mEq/L (09/28/22 7:12 AM) Chloride [98-107 mEq/L] 106 mEq/L (09/28/22 7:12 AM) AbsNeut [2.0-8.0 Thous/mm3] 2.8 Thous/mm 3 (09/28/22 7:12 AM) CO2 [21-32 mEq/L] 27 mEq/L (09/28/22 7:12 AM) BUN [7-18 mg/dL] 11 mg/dL (09/28/22 7:12 AM) Creatinine [0.73-1.18 mg/dL] 0.93 mg/dL (09/28/22 7:12 AM) AbsLymph [1.0-4.0 Thous/mm3] 1.4 Thous/m m3 (09/28/22 7:12 AM) AbsMono [0.1-1.0 Thous/mm3] 0.6 Thous/mm 3 (09/28/22 7:12 AM) Bilirubin, Total [0.2-1.0 mg/dL] 0.7 mg/ dL (09/28/22 7:12 AM) AbsEo [0.0-0.5 Thous/mm3] 0.5 Thous/mm3 (09/28/22 7:12 AM) Bilirubin, Direct [<=0.2 mg/dL] 0.2 mg/d L (09/28/22 7:12 AM) Bilirubin, Indirect [0.0-0.7 mg/dL] 0.5 mg/dL (09/28/22 7:12 AM) AbsBaso [0.0-0.2 Thous/mm3] 0.0 Thous/mm 3 (09/28/22 7:12 AM) AutoBaso [0.0-2.5 %] 0.6 % (09/28/22 7:12 AM) Calcium [8.3-10.6 mg/dL] 8.8 mg/dL (09/28/22 7:12 AM) Protein Total [6.4-8.5 g/dL] 7.7 g/dL (09/28/22 7:12 AM) Albumin [3.4-5.0 g/dL] 4.0 g/dL (09/28/22 7:12 AM) AST [15-37 U/L] 24 U/L (09/28/22 7:12 AM) Alk Phos [45-117 U/L] 83 U/L (09/28/22 7:12 AM) PTT [22-33 sec] 27 sec (09/28/22 7:12 AM) ALT [10-49 U/L] 11 U/L (09/28/22 7:12 AM) Imm. Grans % [0-5 %] <5 % (09/28/22 7:12 AM) Imm. Grans # [0.0-0.5 Thous/mm3] <0.5 Th ous/mm3 (09/28/22 7:12 AM) ANC-AbsNeutCount 2.8 Thous/mm3 *NA* (09/28/22 7:12 AM) 1Result Comment: Performed at:[facility], [address], [place], [address] Reference Ranges: 9.0 - 13.5 sec. [facility] have validated the use of the i-STAT PT/INR test on patients receiving anti-coagulant therapy and on non-anticoagulated patients. Testing on patients not on anti-coagulant has not been cleared or approved by the [place] Food and Drug Administration 2Result Comment: Performed at:[facility], [address] [place], [address] Reference Ranges: 9.0 - 13.5 sec. [facility] have validated the use of the i-STAT PT/INR test on patients receiving anti-coagulant therapy and on non-anticoagulated patients. Testing on patients not on anti-coagulant has not been cleared or approved by the Food and Drug Administration 3Result Comment: Performed at:[facility], [address] [place], [address] Reference Ranges: 0.80 - 1.30 4Result Comment: Performed at:[facility], [address] [place] [place], [address] Reference Ranges: 0.80 - 1.30 Vital Signs Most recent to oldest [Reference Range]: 1 Blood Pressure 133/63 (09/28/22 6:59 AM) Height (inches) (Clinical) 69 in (09/28/22 7:00 AM) Weight (kg) (Clinical) 77.2 kg (09/28/22 7:00 AM) BMI (Clinical) 25.1 kg/m2 (09/28/22 7:00 AM) Social History Social History Type Response [...] MRI Safety Implantable Status Assigning Authority Unknown [id number] Unknown Unknown Unknown Unknown Active Unknown Procedure Provider Procedure Date Device Type Site IR Y-90 Mapping Procedure Unknown 08/31/22 Unknown Unknown Device Identifier Serial Number Lot or Batch Number Manufacturing Date Expiration Date Distinct Identification Code MRI Safety Implantable Status Assigning Authority Unknown [id number] Unknown Unknown Unknown Unknown Active Unknown Procedure Provider Procedure Date Device Type Site IR Y-90 Mapping Procedure Unknown 08/31/22 Unknown Unknown Device Identifier Serial Number Lot or Batch Number Manufacturing Date Expiration Date Distinct Identification Code MRI Safety Implantable Status Assigning Authority Unknown [id number] Unknown Unknown Unknown Unknown Active Unknown Patient Care team information Care Team Related Persons Name: GIVEN, NONE Name: AUSTIN WILSON Name: AUSTIN WILSON Address: home [address] [address]
--- OUTSIDE RECORDS SUMMARY | 2023-01-23 21:07 | XMS_ITS | Continuity of Care Document ---
Author Name Unknown Organization [facility] Address [address] [place] [address]- Care Team Providers Care Sewer Name Role Phone Rico Winters DO Primary Care Physician Encounter [facility] Number [id number] Date(s): 12/16/22 - 12/16/22 [facility] [address], [place] [address] [phone] Discharge Disposition: .Discharge to Home (Routine) Attending Physician: Ngoc ORR MD, Gino Goss Allergies, Adverse Reactions, Alerts Substance Reaction Severity Status statins Increased liver enzymes Unknown Acti ve penicillin Unknown Moderate Active Assessment and Plan Future Appointments Appointment Date:02/04/2023 10:45:00 AM Scheduled Provider:Belinda Bynum NP Location:[facility] Appointment Type:Established Patient Future Scheduled Tests Laboratory* Alpha-Fetoprotein (AFP) Tumor Marker, Serum 06/16/22 * Hemogram 07/29/22 * CMP 07/29/22 Radiology* MR Abd w wo Contrast 06/16/22 * CT Abd Pelvis w wo Contrast 02/04/23 * CT Chest w Contrast 02/04/23 * IR Consultation 08/16/22 * IR Chemoembolization 08/31/22 Medications ALPRAZolam 0.25 mg, By mouth, BID, 60 tab, 0, Substitution Permitted Start Date: 02/17/22 Status: Ordered cetirizine 5 mg, By mouth, Daily, # 30 tab, Refill(s) 0 Start Date: 02/17/22 Status: Ordered Colace 50 mg oral capsule 50 mg = 1 cap, By mouth, BID, PRN for constipation, # 60 cap, Refill(s) 0, Pharmacy: [facility], [id number], 1 cap By mouth BID,PRN:for constipation, 77.1, 10/07/22 16:10:00 CDT, kg, Weight (kg) (Clinical) Start Date: 10/08/22 Status: Ordered gabapentin 300 mg oral capsule [...] Related Diagnosis Body Site Status SLCTV CATHJ 3RD+ ORD SLCTV A BDL PEL/LXTR BRNCH 12/16/22 Completed VASCULAR EMBOLIZE/OCCLUDE OR BART TUMOR INFARCT 12/16/22 Completed Results Laboratory List Name Date CBC-d 12/16/22 CMP 12/16/22 PT/INR 12/16/22 zCBC Automated Diff 12/16/22 Most recent to oldest [Reference Range]: 1 Anion Gap [2-15 mEq/L] 4 mEq/L (12/16/22 7:22 AM) eGFR CKD-EPI [>=61 mL/min/1.73 m2] 99 mL /min/1.73 m2 (12/16/22 7:22 AM) Glucose, Serum/Plasma [70-100 mg/dL] 97 mg/dL (12/16/22 7:22 AM) WBC [4.8-10.8 Thous/mm3] 5.0 Thous/mm3 (12/16/22 7:22 AM) Hct [42.0-52.0 %] 40.5 % *LOW* (12/16/22 7:22 AM) Hgb [14.0-18.0 g/dL] 13.2 g/dL *LOW* (12/16/22 AM) RBC [4.60-6.20 Million/mm3] 4.30 Million /mm3 *LOW* (12/16/22) MCV [80.0-100.0 fl] 94.2 fl (12/16/22 AM) MCH [26.0-34.0 pg] 30.7 pg (12/16/22 AM) MCHC [31.0-36.5 g/dL] 32.6 g/dL (12/16/22 AM) RDW [10.4-14.4 %] 14.2 % (12/16/22) Platelets [130-440 Thous/mm3] 180 Thous/ mm3 (12/16/22 AM) MPV [9.4-12.4 fl] 10.4 fl (12/16/22 AM) AutoNeutrophil [43.0-78.0 %] 49.8 % (12/16/22 AM) AutoLymphs [20.0-40.0 %] 26.6 % (12/16/22 AM) AutoMono [2.0-10.0 %] 12.3 % *HI* (12/16/22) AutoEo [0.0-7.0 %] 10.7 % *HI* (12/16/22) Sodium [136-145 mEq/L] 143 mEq/L (12/16/22) Potassium [3.5-5.1 mEq/L] 3.6 mEq/L (12/16/22 AM) Chloride [98-107 mEq/L] 109 mEq/L *HI* (12/16/22) AbsNeut [2.0-8.0 Thous/mm3] 2.5 Thous/mm 3 (12/16/22 AM) CO2 [21-32 mEq/L] 30 mEq/L (12/16/22 AM) BUN [7-18 mg/dL] 8 mg/dL (12/16/22 AM) Creatinine [0.73-1.18 mg/dL] 0.72 mg/dL *LOW* (12/16/22 7:22 AM) AbsLymph [1.0-4.0 Thous/mm3] 1.3 Thous/m m3 (12/16/22 7:22 AM) AbsMono [0.1-1.0 Thous/mm3] 0.6 Thous/mm 3 (12/16/22 7:22 AM) Bilirubin, Total [0.2-1.0 mg/dL] 0.4 mg/ dL (12/16/22:22 AM) AbsEo [0.0-0.5 Thous/mm3] 0.5 Thous/mm3 (12/16/22 7:22 AM) AbsBaso [0.0-0.2 Thous/mm3] 0.0 Thous/mm 3 (12/16/22 7:22 AM) AutoBaso [0.0-2.5 %] 0.6 % (12/16/22: AM) Calcium [8.3-10.6 mg/dL] 8.8 mg/dL (12/16/22 7:22 AM) Protein Total [6.4-8.5 g/dL] 7.1 g/dL (12/16/22 7:22 AM) Albumin [3.4-5.0 g/dL] 3.4 g/dL (12/16/22 7:22 AM) AST [15-37 U/L] 18 U/L (12/16/22 7:22 AM) Alk Phos [45-117 U/L] 88 U/L (12/16/22:22 AM) ALT [10-49 U/L] <7 U/L *LOW* (12/16/22:22 AM) PT [9.0-13.5 sec] 11.1 sec (12/16/22:22 AM) INR [0.80-1.30] 1.04 (12/16/22 7:22 AM) ANC-AbsNeutCount 2.5 Thous/mm3 *NA* (12/16/22 7:22 AM) Radiology Reports * Exam Date Time Procedure Performing Provider Status 12/16/22 10:49 AM NM Liver SPECT/CT Po Therapy Aziza Garces; Auth (Verified) Notes: (NM Liver SPECT/CT Post Y-90 Therapy) Reason For Exam: Y-90 Treatment NM Liver SPECT/CT Post Y-90 Therapy Radionuclide Yttrium-90 (Y-90) labelled Microsphere Therapy: Exam: NM Liver SPECT/CT Post Y-90 Therapy Date/Time of Exam: 12/16/2022 10:49 AM Clinical indication: Y-90 Treatment. Diagnosis Codes: C22.0 Liver cell carcinoma Comparison: Technetium MAA pretreatment mapping study performed on 08/31/2022 Reading Location: [place] [address] \\ [id number] Radiopharmaceutical: Y-90 labeled Sir-Spheres Dose: 17.71 mCi selective intra arterial (left hepatic) Procedure: Planar brehmstrahlung images as well as SPECT imaging of the liver and the upper abdomenwas performed after intra-arterial instillation of Y-90 labeled Sir-Spheres. Please see report of procedure describing selective arterial catheterization and injection performed same date for details. Findings: There is distribution of activity within the liver similar in appearance to pre- treatment mapping study. No evidence for extrahepatic deposition of microspheres in the visualized portion of the upper abdomen and lower chest. IMPRESSION: Distribution of Y-90 Sir-Spheres within the liver consistent with intra-arterial injection described in procedure report. No evidence for extrahepatic deposition of microspheres in the visualized upper abdomen and lower chest. Electronically signed by: Dr. Ajay Carpenter 12/16/2022 11:20 AM Ajay Yoo MD Signed 12/16/22 11:20:03 (Electronic Signature) Account Group Supervisor [employer] REPORT Ajay Yoo MD Signed 12/16/22 11:20:03 (Electronic Signature) Account Group Supervisor [employer] AB Vital Signs Most recent to oldest [Reference Range]: 1 2 3 Blood Pressure 142/62 (12/16/22 11:50 AM) 142/62 (12/16/22 11:45 AM) 144/74 (12/16/22 11:30 AM) Social History Social History Type Response Smoking Status Current every day sm oker; Smokeless tobacco use: Never; Has the patient smoked in the last 365 days, even once? Yes; Type: Cigarettes; Tobacco use per day: 10 or more cigarettes (1/2 pack or more)/day in last 30 days entered on: 10/07/22 Sex Male Implantable Device List Procedure Provider Procedure Date Device Type Site Unknown Unknown 10/07/22 Unknown Unknown Device Identifier Serial Number Lot or Batch Number Manufacturing Date Expiration Date Distinct Identification Code MRI Safety Implantable Status Assigning Authority Unknown [id number] 01/14/21 12/22/23 Unknown Unknown Active Unknown Procedure Provider Procedure Date Device Type Site IR Y-90 Mapping Procedure Unknown 08/31/22 Unknown Unknown Device Identifier Serial Number Lot or Batch Number Manufacturing Date Expiration Date Distinct Identification Code MRI Safety Implantable Status Assigning Authority Unknown [id number] Unknown Unknown Unknown Unknown Active Unknown Procedure Provider Procedure Date Device Type Site IR Y-90 Mapping Procedure Unknown 08/31/22 Unknown Unknown Device Identifier Serial Number Lot or Batch Number Manufacturing Date Expiration Date Distinct Identification Code MRI Safety Implantable Status Assigning Authority Unknown [id number] Unknown Unknown Unknown Unknown Active Unknown Procedure Provider Procedure Date Device Type Site IR Y-90 Mapping Procedure Unknown 08/31/22 Unknown Unknown Device Identifier Serial Number Lot or Batch Number Manufacturing Date Expiration Date Distinct Identification Code MRI Safety Implantable Status Assigning Authority Unknown [id number] Unknown Unknown Unknown Unknown Active Unknown Hospital Discharge Instructions Patient Education 12/16/2022 11:59:39 Moderate Conscious Sedation, Adult, Care After Moderate [...] eating solid foods. General instructions ??? Take jegq-rxu-rzqaqkp and prescription medicines only as told by [...] provider. Document Revised: 05/23/2020 Document Reviewed: 12/20/2019 [employer] Patient Education ?? 2021 [employer] 12/16/2022 11:59:39 Angiogram, Care After, Wwod-pt-Mqcs Angiogram, Care After This sheet gives you information about how to care for yourself after your procedure. Your doctor may also give you more specific instructions. If you have problems or questions, contact your doctor. What can I expect after the procedure? After the procedure, it is common to have these problems at the point where the catheter was inserted: ??? Bruising. ??? Tenderness. ??? A collection of blood (hematoma). This may feel like a small lump under the skin at the insertion site. Follow these instructions at home: Insertion site care ??? Follow instructions from your doctor about how to take care of the area where the catheter was inserted. Make sure you: ??? Wash your hands with soap and water before you change your bandage (dressing). If you cannot use soap and water, use hand cloth calender. ??? Change your bandage as told by your doctor. ??? Do not take baths, swim, or use a hot tub until your doctor says it is okay. ??? You may shower 24???48 hours after the procedure, or as told by your doctor. To clean the area: ??? Gently wash the area with plain soap and water. ??? Pat the area dry with a clean towel. ??? Do not rub the area. This may cause bleeding. ??? Check your insertion area every day for signs of infection. Check for: ??? Redness, swelling, or pain. ??? Fluid or blood. ??? Warmth. ??? Pus or a bad smell. ??? Do not apply powder or lotion to the area. Keep the area clean and dry. Activity ??? Do not drive for 24 hours if you were given a medicine to help you relax (sedative). ??? Rest as told by your doctor, usually for 1???2 days. ??? Do not lift anything that is heavier than 10 lbs. (4.5 kg) or as told by your doctor. ??? If your insertion site was in your leg, try to avoid stairs for a few days. ??? Return to your normal activities as told by your doctor. Ask your doctor what activities are safe for you. General instructions ??? If the insertion area starts to bleed, lie flat and put pressure on the area. If the bleeding does not stop, get help right away. This is an emergency. ??? Take oxfm-eal-pzcdhdj and prescription medicines only as told by your doctor. ??? Drink enough fluid to keep your pee (urine) pale yellow. ??? Keep all follow-up visits as told by your doctor. This is important. Contact a doctor if: ??? You have a fever. ??? You have chills. ??? You have redness, swelling, or pain around your insertion area. ??? You have fluid or blood coming from your insertion area. ??? The insertion area feels warm to the touch. ??? You have pus or a bad smell coming from your insertion area. ??? You have more bruising around the insertion area. Get help right away if: ??? You have a lot of pain in the insertion area. ??? The insertion area swells very fast. ??? The insertion area is bleeding, and the bleeding does not stop after you hold steady pressure on the area. ??? The area around the insertion area becomes pale, cool, tingly, or numb. ??? You have chest pain. ??? You have trouble breathing. ??? You have a rash. ??? You have any signs of a stroke. BE FAST is an easy way to remember the main warning signs: ??? B - Balance. Signs are dizziness, sudden trouble walking, or loss of balance. ??? E - Eyes. Signs are trouble seeing or a change in how you see. ??? F - Face. Signs are sudden [...] a stroke, such as: ??? A sudden, very bad headache with no known cause. ??? Feeling like you may vomit (nausea). ??? Vomiting. ??? A seizure. These symptoms may be an emergency. Do not wait to see if the symptoms will go away. Get medical help right away. Call your local emergency services (911 in the [place] Do not drive yourself to the hospital. Summary ??? After the procedure, it is common to have bruising and tenderness at the insertion area. ??? Do not take baths, swim, or use a hot tub until your doctor says it is okay to do so. You may shower 24???48 hours after the procedure or as told by your doctor. ??? It is important to rest and drink plenty of fluids. ??? If the insertion area starts to bleed, lie flat and put pressure on the area. If the bleeding does not stop, get help right away. This is an emergency. This information is not intended to replace advice given to you by your health care provider. Make sure you discuss any questions you have with your health care provider. Document Revised: 11/28/2019 Document Reviewed: 11/28/2019 [employer] Patient Education ?? 2021 [employer] Follow Up Care 12/14/2022 09:58:27 With:Keep Scheduled Appointments Address:Unknown When: Unknown Progress note * Tanner Gomez MD: PERFORM, SIGN, VERIFY Event Display: Progress Notes Authored Date: [id number] Patient: ABDULLAHI WILSON Age: 67 years Sex: Male : 1955 Associated Diagnoses: None Author: Tanner Gomez MD Postoperative Information Preoperative Diagnosis: Preop Dx (ST) SN - GCD - Preop Diagnosis: Y90 Treatment (12/16/22 08:25:40). Postoperative Diagnosis: Postop Dx (ST) SN - GCD - Post Op Diagnosis: Y90 Treatment (12/16/22 08:25:40). Procedure: Procedure (ST) SN - SgP - Procedure: IR Y-90 Treatment Procedure (12/16/22) Sn - SgP - Surgeon Preferred Procedure: TRI RETA CATH (12/16/22). Performed by: Primary Surgeon (ST) Surgeon - Primary: Tanner Gomez MD . Package Liner: Physician's Package Liner (ST) No Inspector Metal Fabricating Found . Anesthetic Used: Anesthesia Type (ST) SN - SgP - Anesthesia Type: 0-MOD SED-Nurse Adm (12/16/22). Findings: sr. Specimens Removed: Specimens (ST) No Specimens Taken. Estimated Blood Loss: 0 ml. Complications: None. Description of Techniques: Standard. Implants/Grafts: Implant (ST) No Implants/Grafts Used. Final Count Verification: SN - FCV (ST) No final counts done. Electronically signed by:Tanner Gomez MD 12/16/22 17:18 Radiology * Ajay Carpenter MD: PERFORM, TRANSCRIBE, VERIFY, VERIFY Event Display: Powerscribe Read Authored Date: Radionuclide Yttrium-90 (Y-90) labelled Microsphere Therapy: Exam: NM Liver SPECT/CT Post Y-90 Therapy Date/Time of Exam: 12/16/2022 10:49 AM Clinical indication: Y-90 Treatment. Diagnosis Codes: C22.0 Liver cell carcinoma Comparison: Technetium MAA pretreatment mapping study performed on 08/31/2022 Reading Location: [place] [address] \\ [id number] Radiopharmaceutical: Y-90 labeled Sir-Spheres Dose: 17.71 mCi selective intra arterial (left hepatic) Procedure: Planar brehmstrahlung images as well as SPECT imaging of the liver and the upper abdomenwas performed after intra-arterial instillation of Y-90 labeled Sir-Spheres. Please see report of procedure describing selective arterial catheterization and injection performed same date for details. Findings: There is distribution of activity within the liver similar in appearance to pre- treatment mapping study. No evidence for extrahepatic deposition of microspheres in the visualized portion of the upper abdomen and lower chest. IMPRESSION: Distribution of Y-90 Sir-Spheres within the liver consistent with intra-arterial injection described in procedure report. No evidence for extrahepatic deposition of microspheres in the visualized upper abdomen and lower chest. Electronically signed by: Dr. Ajay Carpenter 12/16/2022 11:20 AM Radiologist Ajay Carpenter MD Signed 12/16/22 11:20:03 (Electronic Signature) Account Group Supervisor [employer] Note * Ajay Carpenter MD: PERFORM, TRANSCRIBE, VERIFY, VERIFY Event Display: Report Authored Date: Radiologist Ajay Carpenter MD Signed 12/16/22 11:20:03 (Electronic Signature) Account Group Supervisor [employer] AB Patient Care team information Care Team Personnel Name: Rico Winters DO Position: 2 Restricted Providers Member Role: Primary Care Physician Address: Address: [address] [place] [address] [place] Name: Gino Grossman III, MD Position: PX Physician - General Surgery Med Service: General Surgery Member Role: Ordering Physician Address: Address: [address] [place] [address] [place] Care Team Related Persons Name: GIVEN, NONE Name: AUSTIN WILSON Address: home [address] [place] [address] [facility] Address: mailing [address] [place] [address] [facility] Name: AUSTIN WILSON
--- OUTSIDE RECORDS SUMMARY | 2023-01-23 21:07 | XMS_ITS | Continuity of Care Document ---
Author Name Unknown Organization [facility] Address [address] [place] [address]- Care Team Providers [employer] B[employer] Name Role Phone Rico Winters DO Primary Care Physician [phone] Encounter [facility] Number [id number] Date(s): 10/07/22 - 10/08/22 [facility] [address] [place] [address]- [phone] Encounter Diagnosis HCC (hepatocellular carcinoma)(Discharge Diagnosis) - 10/08/22 Discharge Disposition: .Discharge to Home (Routine) Attending Physician: Gino Grossman III, MD Admitting Physician: Gino Grossman III, MD Allergies, Adverse Reactions, Alerts Substance Reaction Severity Status statins Increased liver enzymes Unknown Acti ve penicillin Unknown Moderate Active Assessment and Plan Extracted from: Title:Instructions to Patients Author:Janie Bonilla RN Date:10/08/22 [facility] Fall Prevention in the Home, Adult Falls can cause injuries and can happen to people of all ages. There are many things you can do to make your home safe and to help prevent falls. Ask for help when making these changes. What actions can I take to prevent falls? General Instructions ? ? Use good lighting in all rooms. Replace any light bulbs that burn out. ? ? Turn on the lights in dark areas. Use night-lights. ? ? Keep items that you use often in mroa-rl-uvahk places. Lower the shelves around your home if needed. ? ? Set up your furniture so you have a clear path. Avoid moving your furniture around. ? ? Do not have throw rugs or other things on the floor that can make you trip. ? ? Avoid walking on wet floors. ? ? If any of your floors are uneven, fix them. ? ? Add color or contrast paint or tape to clearly juan and help you see: ? ? Grab bars or handrails. ? ? First and last steps of staircases. ? ? Where the edge of each step is. ? ? If you use a stepladder: ? ? Make sure that it is fully opened. Do not climb a closed stepladder. ? ? Make sure the sides of the stepladder are locked in place. ? ? Ask someone to hold the stepladder while you use it. ? ? Know where your pets are when moving through your home. What can I do in the bathroom? ? ? Keep the floor dry. Clean up any water on the floor right away. ? ? Remove soap buildup in the tub or shower. ? ? Use nonskid mats or decals on the floor of the tub or shower. ? ? Attach bath mats securely with double-sided, nonslip rug tape. ? ? If you need to sit down in the shower, use a plastic, nonslip stool. ? ? Install grab bars by the toilet and in the tub and shower. Do not use towel bars as grab bars. What can I do in the bedroom? ? ? Make sure that you have a light by your bed that is easy to reach. ? ? Do not use any sheets or blankets for your bed that hang to the floor. ? ? Have a firm chair with side arms that you can use for support when you get dressed. What can I do in the kitchen? ? ? Clean up any spills right away. ? ? If you need to reach something above you, use a step stool with a grab bar. ? ? Keep electrical cords out of the way. ? ? Do not use floor cape verdean or wax that makes floors slippery. What can I do with my stairs? ? ? Do not leave any items on the stairs. ? ? Make sure that you have a light switch at the top and the bottom of the stairs. ? ? Make sure that there are handrails on both sides of the stairs. Fix handrails that are broken or loose. ? ? Install nonslip stair treads on all your stairs. ? ? Avoid having throw rugs at the top or bottom of the stairs. ? ? Choose a carpet that does not hide the edge of the steps on the stairs. ? ? Check carpeting to make sure that it is firmly attached to the stairs. Fix carpet that is loose or worn. What can I do on the outside of my home? ? ? Use bright outdoor lighting. ? ? Fix the edges of walkways and driveways and fix any cracks. ? ? Remove anything that might make you trip as you walk through a door, such as a raised step or threshold. ? ? Trim any bushes or trees on paths to your home. ? ? Check to see if handrails are loose or broken and that both sides of all steps have handrails. ? ? Install guardrails along the edges of any raised decks and porches. ? ? Clear paths of anything that can make you trip, such as tools or rocks. ? ? Have leaves, snow, or ice cleared regularly. ? ? Use sand or salt on paths during winter. ? ? Clean up any spills in your garage right away. This includes grease or oil spills. What other actions can I take? ? ? Wear shoes that: ? ? Have a low heel. Do not wear high heels. ? ? Have rubber bottoms. ? ? Feel good on your feet and fit well. ? ? Are closed at the toe. Do not wear open-toe sandals. ? ? Use tools that help you move around if needed. These include: ? ? Canes. ? ? Walkers. ? ? Scooters. ? ? Crutches. ? ? Review your medicines with your doctor. Some medicines can make you feel dizzy. This can increase your chance of falling. Ask your doctor what else you can do to help prevent falls. Where to find more information ? ? Centers for Disease Control and Prevention, [place]: www.cdc.gov ? ? National [place] on Aging: www.aimee.nih.gov Contact a doctor if: ? ? You are afraid of falling at home. ? ? You feel weak, drowsy, or dizzy at home. ? ? You fall at home. Summary ? ? There are many simple things that you can do to make your home safe and to help prevent falls. ? ? Ways to make your home safe include removing things that can make you trip and installing grab bars in the bathroom. ? ? Ask for help when making these changes in your home. This information is not intended to replace advice given to you by your health care provider. Make sure you discuss any questions you have with your health care provider. Document Revised: 08/27/2020 Document Reviewed: 08/27/2020 [employer] Patient Education ?? 2021 [employer] Chemoembolization Chemoembolization is a procedure that combines chemotherapy and embolization. Chemotherapy is a treatment that uses medicines that stop or slow the growth of cancer cells. Embolization is a procedure that prevents blood flow to a certain area of the body. In chemoembolization, the two treatments are combined as follows: ? ? Chemotherapy medicines are delivered directly to a tumor, through a blood vessel. ? ? At the same time, a type of medicine or synthetic material (embolic agent) is put into the blood vessel to create a blockage. This cuts off blood supply to the tumor and traps the chemotherapy in place. The goal of this procedure is to slow or stop the growth of a cancerous tumor. If the tumor continues to grow or it returns after treatment, the procedure can be repeated. Chemoembolization is most often used to treat liver cancer. The liver has two large blood vessels that supply it with blood. One blood vessel can be used to deliver chemotherapy and can then be blocked. The other blood vessel can still supply blood to the liver. Tell a health care provider about: ? ? Any allergies you have. ? ? All medicines you are taking, including vitamins, herbs, eye drops, creams, and qyic-hir-vgmmtmy medicines. ? ? Any problems you or family members have had with anesthetic medicines. ? ? Any blood disorders you have. ? ? Any surgeries you have had. ? ? Any medical conditions you have. ? ? Whether you are or may be . What are the risks? Generally, this is a safe procedure. However, problems may occur, including: ? ? Infection. ? ? Bleeding. ? ? Allergic reactions to medicines or dyes. ? ? Blood clots. ? ? Swelling or bruising. There is also a risk of damage to other structures or organs, such as: ? ? The affected blood vessel. ? ? Healthy cells that are close to the chemoembolization site. ? ? The liver, if the procedure is done to treat liver cancer. ? ? The kidney. What happens before the procedure? Staying hydrated [...] you to take them. ? ? Taking zqzx-xam-twhoznz medicines, vitamins, herbs, and supplements. General instructions ? ? You may have tests and exams, such as: ? ? Blood tests or urine tests. ? ? An X-ray of the blood vessels in your liver (angiogram). ? ? A CT scan or MRI. ? ? Ask your health care provider: ? ? How your procedure site will be marked. ? ? What steps will be taken to help prevent infection. These may include: ? ? Washing skin with a germ-killing soap. ? ? Taking antibiotic medicine. ? ? Plan to have someone take you home from the hospital or clinic. ? ? If you will be going home right after the procedure, plan to have someone with you for 24 hours. What happens during the procedure? The procedure may vary depending on which organ or area of the body is being treated, but usually the following things will be done: ? ? An IV will be inserted into one of your veins. ? ? You will be given one or more of the following: ? ? A medicine to help you relax (sedative). ? ? A medicine to numb the area (local anesthetic). ? ? A medicine to make you fall asleep (general anesthetic). ? ? A needle will be inserted into one of your blood vessels. Usually, this will be done in one of the large blood vessels in your groin (femoral artery). ? ? A small, thin tube (catheter) will be passed through the needle and into your blood vessel. The catheter will be guided to the area that needs to be treated. ? ? Dye will be injected through the catheter, and X-rays will be taken (fluoroscopy). This will help to show the exact location of the blood vessels that supply your tumor. Your surgeon will use the X-rays as a guide during the procedure. ? ? Chemotherapy medicines and the embolic agent will be injected through the catheter into your blood vessel. ? ? More X-rays will be taken to make sure the blood vessel has been blocked as planned. ? ? The catheter will be removed, and pressure will be applied to the area to stop any bleeding. ? ? A bandage (dressing) will be applied. The procedure may vary among health care providers and hospitals. What happens after the procedure? ? ? Your blood pressure, heart rate, breathing rate, and blood oxygen level will be monitored until you leave the hospital or clinic. ? ? You may have to wear compression stockings. These stockings help to prevent blood clots and reduce swelling in your legs. ? ? You may continue to receive fluids and medicines through an IV. ? ? You may have pain, nausea, vomiting, or a fever. These symptoms are called post-embolization syndrome. You may be given medicine to help relieve these symptoms. ? ? You will need to stay lying down for 6? 8 hours. ? ? You may need to use a small breathing device (incentive spirometer) to help prevent pneumonia. ? ? Do not drive for 24 hours if you were given a sedative during the procedure. Summary ? ? Chemoembolization is a procedure that combines chemotherapy and embolization. Chemotherapy medicines are delivered directly to a tumor, through a blood vessel. ? ? Chemoembolization is most often used to treat liver cancer. ? ? Before the procedure, follow instructions from your health care provider about eating and drinking and about taking medicines. ? ? During the procedure, chemotherapy medicines and the embolic agent will be injected through a catheter into your blood vessel. ? ? Do not drive for 24 hours if you were given a sedative during the procedure. This information is not intended to replace advice given to you by your health care provider. Make sure you discuss any questions you have with your health care provider. Document Revised: 06/07/2019 Document Reviewed: 06/07/2019 [employer] Patient Education ?? 2021 [employer]. Medication Leaflets: levofloxacin (oral) (BRADY voe FLOX a sin) What is the most important information I should know about levofloxacin? Levofloxacin can cause serious side effects, including tendon problems, nerve damage, serious mood or behavior changes, or low blood sugar. Stop using this medicine and call your doctor at once if you have symptoms such as: headache, hunger, irritability, numbness, tingling, burning pain, confusion, agitation, paranoia, problems with memory or concentration, thoughts of suicide, or sudden pain or movement problems in any of your joints. In rare cases, levofloxacin may cause damage to your aorta, which could lead to dangerous bleeding or . Get emergency medical help if you have severe and constant pain in your chest, stomach, or back. What is levofloxacin? Levofloxacin is a fluoroquinolone (ezir-s-GCJB-o-lone) antibiotic that fights bacteria in the body. Levofloxacin is used to treat different types of bacterial infections. Levofloxacin is also used to treat people who have been exposed to anthrax or certain types of plague. Fluoroquinolone antibiotics can cause serious or disabling side effects. Levofloxacin should be used only for infections that cannot be treated with a safer antibiotic. Levofloxacin may also be used for purposes not listed in this medication guide. What should I discuss with my healthcare provider before taking levofloxacin? You should not use this medicine if you are allergic to levofloxacin or other fluoroquinolones (ciprofloxacin, gemifloxacin, moxifloxacin, norfloxacin, ofloxacin, and others). Levofloxacin may cause swelling or tearing of a tendon (the fiber that connects bones to muscles in the body), especially in the Achilles' tendon of the heel. This can happen during treatment or up to several months after you stop taking levofloxacin. Tendon problems may be more likely in certain people (children and older adults, or people who use steroid medicine or have had an organ transplant). Tell your doctor if you have ever had: ? tendon problems, bone problems, arthritis or other joint problems (especially in children); ? ? blood circulation problems, aneurysm, narrowing or hardening of the arteries; ? ? heart problems, high blood pressure; ? ? a genetic disease such as Marfan syndrome or Ehler's-Danlos syndrome; ? ? diabetes; ? ? a muscle or nerve disorder, such as myasthenia gravis; ? ? kidney disease; ? ? seizures or epilepsy; ? ? a head injury or brain tumor; ? ? long QT syndrome (in you or a family member); or ? ? low levels of potassium in your blood (hypokalemia). Do not give this medicine to a child without medical advice. It is not known whether this medicine will harm an unborn baby. Tell your doctor if you are . You should not breast-feed while using this medicine. How should I take levofloxacin? Follow all directions on your prescription label and read all medication guides or instruction sheets. Use the medicine exactly as directed. Take levofloxacin with water, at the same time each day. Drink extra fluids to keep your kidneys working properly while taking this medicine. You may take levofloxacin tablets with or without food. Take levofloxacin oral solution (liquid) on an empty stomach, at least 1 hour before or 2 hours after a meal. Measure liquid medicine carefully. Use the dosing syringe provided, or use a medicine dose-measuring device (not a kitchen spoon). Use this medicine for the full prescribed length of time, even if your symptoms quickly improve. Skipping doses can increase your risk of infection that is resistant to medication. Levofloxacin will not treat a viral infection such as the flu or a common cold. Do not share levofloxacin with another person. This medicine may affect a drug-screening urine test and you may have false results. Tell the laboratory staff that you use levofloxacin. Store at room temperature away from moisture and heat. Keep the bottle tightly closed when not in use. What happens if I miss a dose? Take the medicine as soon as you can, but skip the missed dose if it is almost time for your next dose. Do not take two doses at one time. What happens if I overdose? Seek emergency medical attention or call the Poison Help line at . What should I avoid while taking levofloxacin? Avoid driving or hazardous activity until you know how this medicine will affect you. Your reactions could be impaired. Antibiotic medicines can cause diarrhea, which may be a sign of a new infection. If you have diarrhea that is watery or bloody, call your doctor before using anti-diarrhea medicine. Levofloxacin could make you sunburn more easily. Avoid sunlight or tanning beds. Wear protective clothing and use sunscreen (SPF 30 or higher) when you are outdoors. Tell your doctor if you have severe burning, redness, itching, rash, or swelling after being in the sun. What are the possible side effects of levofloxacin? Get emergency medical help if you have signs of an allergic reaction (hives, difficult breathing, swelling in your face or throat) or a severe skin reaction (fever, sore throat, burning in your eyes, skin pain, red or purple skin rash that spreads and causes blistering and peeling). Levofloxacin can cause serious side effects, including tendon problems, side effects on your nerves (which may cause permanent nerve damage), serious mood or behavior changes (after just one dose), or low blood sugar (which can lead to coma). Stop taking this medicine and call your doctor at once if you have: ? low blood sugar--headache, hunger, sweating, irritability, dizziness, nausea, fast heart rate, or feeling anxious or shaky; ? ? nerve symptoms in your hands, arms, legs, or feet--numbness, weakness, tingling, burning pain; ? ? serious mood or behavior changes--nervousness, confusion, agitation, paranoia, hallucinations, memory problems, trouble concentrating, thoughts of suicide; or ? ? signs of tendon rupture--sudden pain, swelling, bruising, tenderness, stiffness, movement problems, or a snapping or popping sound in any of your joints (rest the joint until you receive medical care or instructions). In rare cases, levofloxacin may cause damage to your aorta, the main blood artery of the body. This could lead to dangerous bleeding or . Get emergency medical help if you have severe and constant pain in your chest, stomach, or back. Stop taking levofloxacin and call your doctor at once if you have: ? severe stomach pain, diarrhea that is watery or bloody; ? ? fast or pounding heartbeats, fluttering in your chest, shortness of breath, and sudden dizziness (like you might pass out); ? ? the first sign of any skin rash, no matter how mild; ? ? muscle weakness, breathing problems; ? ? seizure (convulsions); ? ? increased pressure inside the skull--severe headaches, ringing in your ears, dizziness, nausea, vision problems, pain behind your eyes; or ? ? liver problems--upper stomach pain, loss of appetite, dark urine, dewey-colored stools, jaundice (yellowing of the skin or eyes). Common side effects may include: ? nausea, constipation, diarrhea; ? ? headache, dizziness; or ? ? trouble sleeping. This is not a complete list of side effects and others may occur. Call your doctor for medical advice about side effects. You may report side effects to FDA at 5-952-PTO-4898. What other drugs will affect levofloxacin? Some medicines can make levofloxacin much less effective when taken at the same time. If you take any of the following medicines, take your levofloxacin dose 2 hours before or 2 hours after you take the other medicine. ? antacids that contain magnesium or aluminum (such as Maalox, Mylanta, or Rolaids), or the ulcer medicine sucralfate (Carafate); ? ? didanosine (Videx) powder or chewable tablets; or ? ? vitamin or mineral supplements that contain aluminum, iron, magnesium, or zinc. Tell your doctor about all your other medicines, especially: ? theophylline; ? ? a diuretic or 'water pill'; ? ? heart rhythm medication; ? ? insulin or oral diabetes medicine (check your blood sugar regularly); ? ? medicine to treat depression or mental illness; ? ? steroid medicine (such as prednisone); ? ? a blood thinner--warfarin, Coumadin, Jantoven; or ? ? NSAIDs (nonsteroidal anti-inflammatory drugs)--aspirin, ibuprofen (Advil, Motrin), naproxen (Aleve), celecoxib, diclofenac, indomethacin, meloxicam, and others. This list is not complete. Other drugs may affect levofloxacin, including prescription and rllq-exk-nlzihzz medicines, vitamins, and herbal products. Not all possible drug interactions are listed here. Where can I get more information? Your pharmacist can provide more information about levofloxacin. Remember, keep this and all other medicines out of the reach of children, never share your medicines with others, and use this medication only for the indication prescribed. Every effort has been made to ensure that the information provided by [employer]. ('[employer]') is accurate, up-to-date, and complete, but no guarantee is made to that effect. Drug information contained herein may be time sensitive. [employer] information has been compiled for use by healthcare practitioners and consumers in the [place] and therefore [employer] does not warrant that uses outside of the [place] are appropriate, unless specifically indicated otherwise. [employer] drug information does not endorse drugs, diagnose patients or recommend therapy. [employer] drug information is an informational resource designed to assist licensed healthcare practitioners in caring for their patients and/or to serve consumers viewing this service as a supplement to, and not a substitute for, the expertise, skill, knowledge and judgment of healthcare practitioners. The absence of a warning for a given drug or drug combination in no way should be construed to indicate that the drug or drug combination is safe, effective or appropriate for any given patient. [employer] does not assume any responsibility for any aspect of healthcare administered with the aid of information [employer] provides. The information contained herein is not intended to cover all possible uses, directions, precautions, warnings, drug interactions, allergic reactions, or adverse effects. If you have questions about the drugs you are taking, check with your doctor, nurse or pharmacist. Copyright 1980-9267 [employer]. Version: 16.. Revision Date: 09/16/2022. docusate (oral/rectal) (DOK ue sate) Colace, Colace Clear, Docu Soft, Doculase, Docusate Mini, DocuSol Kids, DOK, DSS, Dulcolax Stool Softener, Enemeez Mini, Pedia-Lax Stool Softener, Prieto Stool Softener, Silace, Aga-Q-Lax What is the most important information I should know about docusate? You should not use docusate if you also use mineral oil, unless your doctor tells you to. What is docusate? Docusate is a stool softener that makes bowel movements softer and easier to pass. Docusate is used to relieve occasional constipation (irregularity). There are many brands and forms of docusate available. Not all brands are listed on this leaflet. Docusate may also be used for purposes not listed in this medication guide. What should I discuss with my healthcare provider before using docusate? You should not use docusate if you are allergic to it. Ask a doctor or pharmacist if this medicine is safe to use if you have: ? stomach pain; ? ? nausea; ? ? vomiting; or ? ? a sudden change in bowel habits that lasts over 2 weeks. Ask a doctor before using this medicine if you are or . Do not give this medicine to a child without medical advice. How should I use docusate? Use exactly as directed on the label, or as prescribed by your doctor. Drink plenty of liquids while you are using docusate. Measure liquid medicine carefully. Use the dosing syringe provided, or use a medicine dose-measuring device (not a kitchen spoon). Do not take the rectal enema by mouth. Rectal medicine is for use only in the rectum. Wash your hands before and after using the enema. To use the enema, lie on your left side with your left leg extended and your right leg slightly bent. Remove the cap from the applicator tip and gently insert the tip into your rectum. Slowly squeeze the bottle to empty the contents into the rectum. After using the enema, lie down on your left side for at least 30 minutes to allow the liquid to distribute throughout your intestines. Avoid using the bathroom, and hold in the enema at least 1 hour, or all night if possible. Read and carefully follow any Instructions for Use provided with your medicine. Ask your doctor or pharmacist if you do not understand these instructions. Docusate generally produces bowel movement in 12 to 72 hours. Call your doctor if your symptoms do not improve after 72 hours. You should not use docusate for longer than 1 week, unless your doctor tells you to. Store at room temperature away from moisture, light, and heat. Do not freeze liquid medicine. What happens if I miss a dose? Since docusate is used when needed, you may not be on a dosing schedule. Skip any missed dose if it's almost time for your next dose. Do not use two doses at one time. What happens if I overdose? Seek emergency medical attention or call the Poison Help line at . What should I avoid while using docusate? Avoid using mineral oil, unless told to do so by a doctor. What are the possible side effects of docusate? Get emergency medical help if you have signs of an allergic reaction: hives; difficult breathing; swelling of your face, lips, tongue, or throat. Stop using docusate and call your doctor at once if: ? you have rectal bleeding; ? ? no bowel movement occurs after using a laxative; ? ? you need to use a stool softener for more than 1 week; or ? ? rash occurs. Less serious side effects may be more likely, and you may have none at all. This is not a complete list of side effects and others may occur. Call your doctor for medical advice about side effects. You may report side effects to FDA at 9-330-UGT-1202. What other drugs will affect docusate? Other drugs may affect docusate, including prescription and xidl-bnq-lljkldy medicines, vitamins, and herbal products. Tell your doctor about all other medicines you use. Where can I get more information? Your pharmacist can provide more information about docusate. Remember, keep this and all other medicines out of the reach of children, never share your medicines with others, and use this medication only for the indication prescribed. Every effort has been made to ensure that the information provided by [employer]. ('[employer]') is accurate, up-to-date, and complete, but no guarantee is made to that effect. Drug information contained herein may be time sensitive. [employer] information has been compiled for use by healthcare practitioners and consumers in the [place] and therefore [employer] does not warrant that uses outside of the [place] are appropriate, unless specifically indicated otherwise. [employer] drug information does not endorse drugs, diagnose patients or recommend therapy. [employer] drug information is an informational resource designed to assist licensed healthcare practitioners in caring for their patients and/or to serve consumers viewing this service as a supplement to, and not a substitute for, the expertise, skill, knowledge and judgment of healthcare practitioners. The absence of a warning for a given drug or drug combination in no way should be construed to indicate that the drug or drug combination is safe, effective or appropriate for any given patient. [employer] does not assume any responsibility for any aspect of healthcare administered with the aid of information [employer] provides. The information contained herein is not intended to cover all possible uses, directions, precautions, warnings, drug interactions, allergic reactions, or adverse effects. If you have questions about the drugs you are taking, check with your doctor, nurse or pharmacist. Copyright 2066-1825 [employer]. Version: 7.01. Revision Date: 09/03/2022. Accessing??[employer]??Express??Patient??Portal Access medications, test results, radiology reports, and more through [employer] secure patient portal. Please be patient if waiting on lab results, as these can take several days to process. [place] online at??[email or web address]??Use your community medical record number (CMRN) located below to verify your identity on the Self-Enrollment form.We also offer the ability for you to securely connect other health management apps to your health record. See the [facility] Connection link on the website above for more details. Watch [employer] Patient Education Videos and Access Resources anytime online! Visit [email or web address] Extracted from: Title:[facility] Surgery - Final Progress Note Author:Wendy Sun Date:10/08/22 Patient: ABDULLAHI WILSON Age: 66 years Sex: Male : 1955 Associated Diagnoses: None Author: Wendy Chavez Basic Information Admit information: [facility] s/p TACE 10/07 . Had some nausea overnight, seems to be improving some this a.m. Generalized abdominal discomfort. Afebrile. Review of Systems Constitutional: No fever, No chills. Respiratory: Negative. Cardiovascular: Negative. Gastrointestinal: Nausea, Abdominal pain, No vomiting. Physical Examination Vital Signs (last 24 hrs) Last Charted Minimum Maximum Temp 98.6 (OCT 08 07:16) 97.5 (OCT 07 15:53) 98.6 (OCT 08:16) Heart Rate 93 (OCT 08 07:16) 77 (OCT 07 13:30) 108 (OCT 08 03:24) Resp Rate 17 (OCT 08 03:24) C 8(OCT 07 13:30) 24 (OCT 07 14:35) SBP 166 (OCT 08 07:16) 139 (OCT 07 13:40) C 184(OCT 07 14:50) DBP 72 (OCT 08 07:16) 67 (OCT 07 13:40) 96 (OCT 07 14:50) SpO2 90 (OCT 08 07:16) 89 (OCT 07 14:50) 97 (OCT 07 14:20) O2 Room a (OCT 08 03:24) Nasal (OCT 07 13:30) Nasal (OCT 07 13:30) O2 Flow 2 (OCT 07 20:01) 2 (OCT 07 13:30) 2 (OCT 07 13:30) Weight 77.1 (OCT 07 16:10) 77.1 (OCT 07 16:10) 77.1 (OCT 07 16:10) General: Alert and oriented, No acute distress. Respiratory: Respirations are non-labored, Symmetrical chest wall expansion. Cardiovascular: Normal peripheral perfusion, No edema. Gastrointestinal: Soft, Non-distended, Generalized discomfort. R groin site soft, no hematoma. Integumentary: Warm, Dry, [place]. Neurologic: No focal deficits. Psychiatric: Cooperative. Review / Management Labs reviewed Impression and Plan Diagnosis HCC (hepatocellular carcinoma) - CLO53-YG C22.0. Course: Progressing as expected. 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 1000 mL (Discontinue): 10/08/2022 10:03 CDT oxyCODONE (Order): 10 mg, TAB, By mouth, Q6H, PRN, Pain Severe (7-10), Start Date: 10/08/2022 10:18 CDT, Duration: 14 Days, Stop date 10/22/2022 10:17 CDT, Routine Dietary: Regular diet (Order): 10/08/2022 10:03 CDT Patient Care: Notify Provider (Discontinue): 10/08/2022 10:03 CDT Nursing Communication Order (Discontinue): 10/08/2022 10:03 CDT Notify Provider (Discontinue): 10/08/2022 10:03 CDT Notify Provider (Discontinue): 10/08/2022 10:03 CDT Notify Provider (Discontinue): 10/08/2022 10:03 CDT Nursing Communication Order (Discontinue): 10/08/2022 10:03 CDT. Education and Follow-up: Counseled: Patient. Discharge Planning: Gino Grossman In 4 weeks 11/05/[address] prior to appt. Plan: ADAT today DC [employer], add po pain meds & antiemetics Home today Addendum by Ngoc ORR MD, Gino Goss on October 08, 2022 10:11 CDT Patient seen and examined independently. Chart reviewed - data independently verified. Agree with the nurse practitioner's assessment and plan as above. ABd soft. LFTs noted. OK for home Future Scheduled Tests Laboratory* Alpha-Fetoprotein (AFP) Tumor [...] constipation, # 60 cap, Refill(s) 0, [facility] [id number], 1 cap By mouth BID,PRN:for constipation, 77.1, 10/07/22 16:10:00 CDT, kg, Weight (kg) (Clinical) Start Date: 10/08/22 Status: Ordered gabapentin 300 mg oral capsule 300 mg = 1 cap, By mouth, BID, # 60 cap, Refill(s) 0 Start Date: 02/17/22 Status: Ordered Levaquin 500 mg oral tablet 500 mg, = 1 tab, By mouth, Daily, 5 Days, 5 tab, 0, 0, 10/13/22 10:06:00 CDT, Substitution Permitted, [facility], 69, Height (inches) (Clinical), 10/08/22 2:35:00 CDT, in, 77.1, Weight (kg) (Clinical), 10/07/22 16:10:00 CDT, kg Start Date: 10/08/22 Stop Date: 10/13/22 Status: Ordered oxyCODONE 10 mg oral tablet 10 mg, = 1 tab, By mouth, Q8H, PRN Pain Severe, 30 EA, 0, 0, Substitution Permitted Start Date: 02/17/22 Status: Ordered oxyCODONE 5 mg oral tablet 10 mg, = 2 tab, By mouth, Q6H, PRN for pain, 7 Days, 40 tab, 0, 0, 10/15/22 10:10:00 CDT, Substitution Permitted, [facility], 69, Height (inches) (Clinical), 10/08/22 2:35:00 CDT, in,77.1, Weight (kg) (Clinical), 10/07/22 16:10:00 CDT... Start Date: 10/08/22 Stop Date: 10/15/22 Status: Ordered Tagressa 80mg Tagressa 80mg, daily, [...] 3RD+ ORD SLCTV A BDL PEL/LXTR BRNCH 10/07/22 Completed VASCULAR EMBOLIZE/OCCLUDE OR BART TUMOR INFARCT 10/07/22 Completed Results Laboratory List Name Date Hepatic Function Panel 10/08/22 BMP 10/07/22 CBC-d 10/07/22 Hepatic Function Panel 10/07/22 PT/INR 10/07/22 zCBC Automated Diff 10/07/22 Most recent to oldest [Reference Range]: 1 2 Bedside Glucose 152 mg/dL 1 (10/07/22 4:50 PM) Anion Gap [2-15 mEq/L] 7 mEq/L (10/07/22 7:26 AM) eGFR CKD-EPI [>=61 mL/min/1.73 m2] 94 mL /min/1.73 m2 (10/07/22 7:26 AM) Glucose, Serum/Plasma [70-100 mg/dL] 97 mg/dL (10/07/22 7: AM) WBC [4.8-10.8 Thous/mm3] 4.7 Thous/mm3 *LOW* (10/07/22: AM) Hct [42.0-52.0 %] 45.5 % (10/07/22: AM) Hgb [14.0-18.0 g/dL] 14.4 g/dL (10/07/22 AM) RBC [4.60-6.20 Million/mm3] 4.49 Million /mm3 *LOW* (10/07/22: AM) MCV [80.0-100.0 fl] 101.3 fl *HI* (10/07/22 AM) MCH [26.0-34.0 pg] 32.1 pg (10/07/22: AM) MCHC [31.0-36.5 g/dL] 31.6 g/dL (10/07/22: AM) RDW [10.4-14.4 %] 14.8 % *HI* (10/07/22: AM) Platelets [130-440 Thous/mm3] 139 Thous/ mm3 (10/07/22: AM) MPV [9.4-12.4 fl] 10.2 fl (10/07/22: AM) AutoNeutrophil [43.0-78.0 %] 50.3 % (10/07/22: AM) AutoLymphs [20.0-40.0 %] 26.7 % (10/07/22: AM) AutoMono [2.0-10.0 %] 11.7 % *HI* (10/07/22: AM) AutoEo [0.0-7.0 %] 10.4 % *HI* (10/07/22: AM) Sodium [136-145 mEq/L] 142 mEq/L (10/07/22: AM) Potassium [3.5-5.1 mEq/L] 3.6 mEq/L (10/07/22: AM) Chloride [98-107 mEq/L] 107 mEq/L (10/07/22: AM) AbsNeut [2.0-8.0 Thous/mm3] 2.4 Thous/mm 3 (10/07/22 7: AM) CO2 [21-32 mEq/L] 28 mEq/L (10/07/22 7: AM) BUN [7-18 mg/dL] 9 mg/dL (10/07/22 7:26 AM) Creatinine [0.73-1.18 mg/dL] 0.86 mg/dL (10/07/22: AM) AbsLymph [1.0-4.0 Thous/mm3] 1.2 Thous/m m3 (10/07/22 7: AM) AbsMono [0.1-1.0 Thous/mm3] 0.6 Thous/mm 3 (10/07/22: AM) Bilirubin, Total [0.2-1.0 mg/dL] 0.6 mg/ dL (10/08/22 2:29 AM) 0.6 mg/dL (10/07/22: AM) AbsEo [0.0-0.5 Thous/mm3] 0.5 Thous/mm3 (10/07/22 7: AM) Bilirubin, Direct [<=0.2 mg/dL] 0.3 mg/d L *HI* (10/08/22 2:29 AM) 0.2 mg/dL (10/07/22: AM) Bilirubin, Indirect [0.0-0.7 mg/dL] 0.3 mg/dL (10/08/22 2:29 AM) 0.4 mg/dL (10/07/22: AM) AbsBaso [0.0-0.2 Thous/mm3] 0.0 Thous/mm 3 (10/07/22 7: AM) AutoBaso [0.0-2.5 %] 0.9 % (10/07/22: AM) Calcium [8.3-10.6 mg/dL] 8.6 mg/dL (10/07/22 7: AM) Protein Total [6.4-8.5 g/dL] 7.6 g/dL (10/08/22 2:29 AM) 7.0 g/dL (10/07/22 7:26 AM) Albumin [3.4-5.0 g/dL] 3.6 g/dL (10/08/22 2:29 AM) 3.6 g/dL (10/07/22 7:26 AM) AST [15-37 U/L] 119 U/L *HI* (10/08/22 2:29 AM) 18 U/L (10/07/22 7:26 AM) Alk Phos [45-117 U/L] 95 U/L (10/08/22 2:29 AM) 89 U/L (10/07/22 7:26 AM) ALT [10-49 U/L] 112 U/L *HI* (10/08/22 2:29 AM) 10 U/L (10/07/22 7: AM) PT [9.0-13.5 sec] 11.1 sec (10/07/22 7:26 AM) INR [0.80-1.30] 1.04 (10/07/22 7:26 AM) ANC-AbsNeutCount 2.4 Thous/mm3 *NA* (10/07/22 7:26 AM) 1Result Comment: Notify RN/DR Performed at:[facility], [address] [place] [address], [id number] Reference Ranges: Age 0 - 24 hours: 45 - 115 mg/dL Age 24 hours - 30 days: 55 - 115 mg/dL Age > 30 days: 70 - 100 mg/dL Critical Results Requiring Immediate Notification: Age <72 Hours: <40 or >350 mg/dL Age >72 Hours: <50 or >400 mg/dL Vital Signs Most recent to oldest [Reference Range]: 1 2 3 Blood Pressure 176/82mmHg (10/08/22 10:51 AM) 166/72mmHg (10/08/22 7:16 AM) 149/69mmHg (10/08/22 3:24 AM) Height (inches) (Clinical) 69 in (10/08/22 2:00 AM) 69 in (10/07/22 4:10 PM) 69 in (10/07/22 6:55 AM) Weight (kg) (Clinical) 77.1 kg (10/07/22 4:10 PM) 77.1 kg (10/07/22 6:55 AM) BMI (Clinical) 25 kg/m2 (10/07/22 4:10 PM) 25 kg/m2 (10/07/22 6:55 AM) Social History Social History Type Response [...] Safety Implantable Status Assigning Authority Unknown 0 [id number] 01/14/21 12/22/23 Unknown Unknown Active Unknown Procedure Provider Procedure Date Device Type Site IR Y-90 Mapping Procedure Unknown 08/31/22 Unknown Unknown Device Identifier Serial Number Lot or Batch Number Manufacturing Date Expiration Date Distinct Identification Code MRI Safety Implantable Status Assigning Authority Unknown [id number] Unknown Unknown Unknown Unknown Active Unknown Procedure Provider Procedure Date Device Type Site IR Y-90 Mapping Procedure Unknown 08/31/22 Unknown Unknown Device Identifier Serial Number Lot or Batch Number Manufacturing Date Expiration Date Distinct Identification Code MRI Safety Implantable Status Assigning Authority Unknown [id number] Unknown Unknown Unknown Unknown Active Unknown Procedure Provider Procedure Date Device Type Site IR Y-90 Mapping Procedure Unknown 08/31/22 Unknown Unknown Device Identifier Serial Number Lot or Batch Number Manufacturing Date Expiration Date Distinct Identification Code MRI Safety Implantable Status Assigning Authority Unknown [id number] Unknown Unknown Unknown Unknown Active Unknown Hospital Discharge Instructions Patient Education 10/08/2022 13:40:00 Fall Prevention in the Home, Adult, Mmyb-ym-Jjim Fall Prevention in the Home, Adult Falls can cause injuries and can happen to people of all ages. There are many things you can do to make your home safe and to help prevent falls. Ask for help when making these changes. What actions can I take to prevent falls? General Instructions ??? Use good lighting in all rooms. Replace any light bulbs that burn out. ??? Turn on the lights in dark areas. Use night-lights. ??? Keep items that you use often in xpns-qj-ictmo places. Lower the shelves around your home if needed. ??? Set up your furniture so you have a clear path. Avoid moving your furniture around. ??? Do not have throw rugs or other things on the floor that can make you trip. ??? Avoid walking on wet floors. ??? If any of your floors are uneven, fix them. ??? Add color or contrast paint or tape to clearly juan and help you see: ??? Grab bars or handrails. ??? First and last steps of staircases. ??? Where the edge of each step is. ??? If you use a stepladder: ??? Make sure that it is fully opened. Do not climb a closed stepladder. ??? Make sure the sides of the stepladder are locked in place. ??? Ask someone to hold the stepladder while you use it. ??? Know where your pets are when moving through your home. What can I do in the bathroom? Keep the floor dry. Clean up any water on the floor right away. ??? Remove soap buildup in the tub or shower. ??? Use nonskid mats or decals on the floor of the tub or shower. ??? Attach bath mats securely with double-sided, nonslip rug tape. ??? If you need to sit down in the shower, use a plastic, nonslip stool. ??? Install grab bars by the toilet and in the tub and shower. Do not use towel bars as grab bars. What can I do in the bedroom? Make sure that you have a light by your bed that is easy to reach. ??? Do not use any sheets or blankets for your bed that hang to the floor. ??? Have a firm chair with side arms that you can use for support when you get dressed. What can I do in the kitchen? Clean up any spills right away. ??? If you need to reach something above you, use a step stool with a grab bar. ??? Keep electrical cords out of the way. ??? Do not use floor cape verdean or wax that makes floors slippery. What can I do with my stairs? Do not leave any items on the stairs. ??? Make sure that you have a light switch at the top and the bottom of the stairs. ??? Make sure that there are handrails on both sides of the stairs. Fix handrails that are broken or loose. ??? Install nonslip stair treads on all your stairs. ??? Avoid having throw rugs at the top or bottom of the stairs. ??? Choose a carpet that does not hide the edge of the steps on the stairs. ??? Check carpeting to make sure that it is firmly attached to the stairs. Fix carpet that is looseor worn. What can I do on the outside of my home? Use bright outdoor lighting. ??? Fix the edges of walkways and driveways and fix any cracks. ??? Remove anything that might make you trip as you walk through a door, such as a raised step or threshold. ??? Trim any bushes or trees on paths to your home. ??? Check to see if handrails are loose or broken and that both sides of all steps have handrails. ??? Install guardrails along the edges of any raised decks and porches. ??? Clear paths of anything that can make you trip, such as tools or rocks. ??? Have leaves, snow, or ice cleared regularly. ??? Use sand or salt on paths during winter. ??? Clean up any spills in your garage right away. This includes grease or oil spills. What other actions can I take? Wear shoes that: ??? Have a low heel. Do not wear high heels. ??? Have rubber bottoms. ??? Feel good on your feet and fit well. ??? Are closed at the toe. Do not wear open-toe sandals. ??? Use tools that help you move around if needed. These include: ??? Canes. ??? Walkers. ??? Scooters. ??? Crutches. ??? Review your medicines with your doctor. Some medicines can make you feel dizzy. This can increase your chance of falling. Ask your doctor what else you can do to help prevent falls. Where to find more information ??? Centers for Disease Control and Prevention, [place]: www.cdc.gov ??? National [place] on Aging: www.aimee.nih.gov Contact a doctor if: ??? You are afraid of falling at home. ??? You feel weak, drowsy, or dizzy at home. ??? You fall at home. Summary ??? There are many simple things that you can do to make your home safe and to help prevent falls. ??? Ways to make your home safe include removing things that can make you trip and installing grab bars in the bathroom. ??? Ask for help when making these changes in your home. This information is not intended to replace advice given to you by your health care provider. Make sure you discuss any questions you have with your health care provider. Document Revised: 08/27/2020 Document Reviewed: 08/27/2020 [employer] Patient Education ?? 2021 [employer]. 10/08/2022 13:39:38 Chemoembolization Chemoembolization Chemoembolization is a procedure that combines chemotherapy and embolization. Chemotherapy is a treatment that uses medicines that stop or slow the growth of cancer cells. Embolization is a procedurethat prevents blood flow to a certain area of the body. In chemoembolization, the two treatments are combined as follows: ??? Chemotherapy medicines are delivered directly to a tumor, through a blood vessel. ??? At the same time, a type of medicine or synthetic material (embolic agent) is put into the blood vessel to create a blockage. This cuts off blood supply to the tumor and traps the chemotherapy inplace. The goal of this procedure is to slow or stop the growth of a cancerous tumor. If the tumor continues to grow or it returns after treatment, the procedure can be repeated. Chemoembolization is most often used to treat liver cancer. The liver has two large blood vessels that supply it with blood. One blood vessel can be used to deliver chemotherapy and can then be blocked. The other blood vessel can still supply blood to the liver. Tell a health care provider about: ??? Any allergies you have. ??? All medicines you are taking, including vitamins, herbs, eye drops, creams, and xzty-vqb-huvtfxl medicines. ??? Any problems you or family members have had with anesthetic medicines. ??? Any blood disorders you have. ??? Any surgeries you have had. ??? Any medical conditions you have. ??? Whether you are or may be . What are the risks? Generally, this is a safe procedure. However, problems may occur, including: ??? Infection. ??? Bleeding. ??? Allergic reactions to medicines or dyes. ??? Blood clots. ??? Swelling or bruising. There is also a risk of damage to other structures or organs, such as: ??? The affected blood vessel. ??? Healthy cells that are close to the chemoembolization site. ??? The liver, if the procedure is done to treat liver cancer. ??? The kidney. What happens before the procedure? Staying hydrated [...] tells you to take them. ??? Taking kznq-mac-qnodamv medicines, vitamins, herbs, and supplements. General instructions ??? You may have tests and exams, such as: ??? Blood tests or urine tests. ??? An X-ray of the blood vessels in your liver (angiogram). ??? A CT scan or MRI. ??? Ask your health care provider: ??? How your procedure site will be marked. ??? What steps will be taken to help prevent infection. These may include: ??? Washing skin with a germ-killing soap. ??? Taking antibiotic medicine. ??? Plan to have someone take you home from the hospital or clinic. ??? If you will be going home right after the procedure, plan to have someone with you for 24 hours. What happens during the procedure? The procedure may vary depending on which organ or area of the body is being treated, but usually the following things will be done: ??? An IV will be inserted into one of your veins. ??? You will be given one or more of the following: ??? A medicine to help you relax (sedative). ??? A medicine to numb the area (local anesthetic). ??? A medicine to make you fall asleep (general anesthetic). ??? A needle will be inserted into one of your blood vessels. Usually, this will be done in one of the large blood vessels in your groin (femoral artery). ??? A small, thin tube (catheter) will be passed through the needle and into your blood vessel. Thecatheter will be guided to the area that needs to be treated. ??? Dye will be injected through the catheter, and X-rays will be taken (fluoroscopy). This will help to show the exact location of the blood vessels that supply your tumor. Your surgeon will use theX-rays as a guide during the procedure. ??? Chemotherapy medicines and the embolic agent will be injected through the catheter into your blood vessel. ??? More X-rays will be taken to make sure the blood vessel has been blocked as planned. ??? The catheter will be removed, and pressure will be applied to the area to stop any bleeding. ??? A bandage (dressing) will be applied. The procedure may vary among health care providers and hospitals. What happens after the procedure? Your blood pressure, heart rate, breathing rate, and blood oxygen level will be monitored untilyou leave the hospital or clinic. ??? You may have to wear compression stockings. These stockings help to prevent blood clots and reduce swelling in your legs. ??? You may continue to receive fluids and medicines through an IV. ??? You may have pain, nausea, vomiting, or a fever. These symptoms are called post-embolization syndrome. You may be given medicine to help relieve these symptoms. ??? You will need to stay lying down for 6???8 hours. ??? You may need to use a small breathing device (incentive spirometer) to help prevent pneumonia. ??? Do not drive for 24 hours if you were given a sedative during the procedure. Summary ??? Chemoembolization is a procedure that combines chemotherapy and embolization. Chemotherapy medicines are delivered directly to a tumor, through a blood vessel. ??? Chemoembolization is most often used to treat liver cancer. ??? Before the procedure, follow instructions from your health care provider about eating and drinking and about taking medicines. ??? During the procedure, chemotherapy medicines and the embolic agent will be injected through a catheter into your blood vessel. ??? Do not drive for 24 hours if you were given a sedative during the procedure. This information is not intended to replace advice given to you by your health care provider. Make sure you discuss any questions you have with your health care provider. Document Revised: 06/07/2019 Document Reviewed: 06/07/2019 [employer] Patient Education ?? 2021 [employer] Follow Up Care 09/28/2022 12:44:38 With:Gino Grossman Address: [address] [place] [phone] Business (1) When:11/05/2022 10:04:20 Comments:Post chemoembolization CT prior to apptClinic will contact you to schedule. If you don't hear back within 5 days, please contact the clinic. Progress note * Gino Grossman III, MD: SIGN Gino Grossman III, MD: SIGN, MODIFY Gino Grossman III, MD: MODIFY, SIGN, VERIFY Event Display: Progress Notes Authored Date: Patient: ABDULLAHI WILSON Age: 66 years Sex: Male : 1955 Associated Diagnoses: None Author: Wendy Chavez Basic Information Admit information: HCC s/p TACE 10/07 . Had some nausea overnight, seems to be improving some this a.m. Generalized abdominal discomfort. Afebrile. Review of Systems Constitutional: No fever, No chills. Respiratory: Negative. Cardiovascular: Negative. Gastrointestinal: Nausea, Abdominal pain, No vomiting. Physical Examination Vital Signs (last 24 hrs) Last Charted Minimum Maximum Temp 98.6 (OCT 08 07:16) 97.5 (OCT 07 15:53) 98.6 (OCT 08 07:16) Heart Rate 93 (OCT 08 07:16) 77 (OCT 07 13:30) 108 (OCT 08 03:24) Resp Rate 17 (OCT 08 03:24) C 8(OCT 07 13:30) 24 (OCT 07 14:35) SBP 166 (OCT 08 07:16) 139 (OCT 07 13:40) C 184(OCT 07 14:50) DBP 72 (OCT 08 07:16) 67 (OCT 07 13:40) 96 (OCT 07 14:50) SpO2 90 (OCT 08 07:16) 89 (OCT 07 14:50) 97 (OCT 07 14:20) O2 Room a (OCT 08 03:24) Nasal (OCT 07 13:30) Nasal (OCT 07 13:30) O2 Flow 2 (OCT 07 20:01) 2 (OCT 07 13:30) 2 (OCT 07 13:30) Weight 77.1 (OCT 07 16:10) 77.1 (OCT 07 16:10) 77.1 (OCT 07 16:10) General: Alert and oriented, No acute distress. Respiratory: Respirations are non-labored, Symmetrical chest wall expansion. Cardiovascular: Normal peripheral perfusion, No edema. Gastrointestinal: Soft, Non-distended, Generalized discomfort. R groin site soft, no hematoma. Integumentary: Warm, Dry, [place]. Neurologic: No focal deficits. Psychiatric: Cooperative. Review / Management Labs reviewed Impression and Plan Diagnosis HCC (hepatocellular carcinoma) - VAT92-MD C22.0. Course: Progressing as expected. 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 1000 mL (Discontinue): 10/08/2022 10:03 CDT oxyCODONE (Order): 10 mg, TAB, By mouth, Q6H, PRN, Pain Severe (7-10), Start Date: 10/08/2022 10:18 CDT, Duration: 14 Days, Stop date 10/22/2022 10:17 CDT, Routine Dietary: Regular diet (Order): 10/08/2022 10:03 CDT Patient Care: Notify Provider (Discontinue): 10/08/2022 10:03 CDT Nursing Communication Order (Discontinue): 10/08/2022 10:03 CDT Notify Provider (Discontinue): 10/08/2022 10:03 CDT Notify Provider (Discontinue): 10/08/2022 10:03 CDT Notify Provider (Discontinue): 10/08/2022 10:03 CDT Nursing Communication Order (Discontinue): 10/08/2022 10:03 CDT. Education and Follow-up: Counseled: Patient. Discharge Planning: Gino Grossman In 4 weeks 11/05/[address] prior to appt. Plan: ADAT today DC [employer], add po pain meds & antiemetics Home today Electronically signed by:Wendy Chavez 10/08/22 10:05 * Gino Grossman III, MD: PERFORM Event Display: Progress Notes Authored Date: Patient seen and examined independently. Chart reviewed - data independently verified. Agree with the nurse practitioner's assessment and plan as above. ABd soft. LFTs noted. OK for home Electronically signed by:Gino Grossman III, MD 10/08/22 10:11 * Tanner Gomez MD: PERFORM, SIGN, VERIFY Event Display: Progress Notes Authored Date: Patient: ABDULLAHI WILSON Age: 66 years Sex: Male : 1955 Associated Diagnoses: None Author: Tanner Gomez MD Postoperative Information Preoperative Diagnosis: Preop Dx (ST) SN - GCD - Preop Diagnosis: chemo embo (10/07/22 13:18:47). Postoperative Diagnosis: Postop Dx (ST) SN - GCD - Post Op Diagnosis: chemo embo (10/07/22 13:18:47). Procedure: Procedure (ST) SN - SgP - Procedure: IR Chemoembolization Procedure (10/07/22) Sn - SgP - Surgeon Preferred Procedure: ADRIAMYCIN NO GA - KAYY COMING IN ON HIS DAY OFF - THIS IS A R/S PT TOOK CHEMO PILL LAST WEEK (10/07/22). Performed by: Primary Surgeon (ST) Surgeon - Primary: Tanner Gomez MD . Cumulative Effects Analyst: Physician's Cumulative Effects Analyst (ST) No Semiconductor Equipment Technician Found . Anesthetic Used: Anesthesia Type (ST) SN - SgP - Anesthesia Type: 0-MOD SED-Nurse Adm (10/07/22). Findings: sr. Specimens Removed: Specimens (ST) No Specimens Taken. Estimated Blood Loss: 0 ml. Complications: None. Description of Techniques: Standard. Implants/Grafts: Implant (ST) SN - IL - Implant Description: embospheres (10/07/22). Final Count Verification: SN - FCV (ST) No final counts done. Electronically signed by:Tanner Gomez MD 10/07/22 15:14 Patient Care team information Care Team Personnel Name: Gino Grossman III, MD Position: PX Physician - General Surgery Med Service: General Surgery Member Role: Admitting Physician Address: Address: [address] [place] [phone] [place] Care Team Related Persons Name: GIVEN, NONE Name: AUSTIN WILSON Name: AUSTIN WILSON Address: [address] [place] [address] [facility] Address: mailing [facility] [address] [place] [address] [facility]
--- NOTE | 2023-01-23 22:01 | PC.NURSE ---
2135 -- Received from Med Surg via wheelchair to ICU room 3. Awake, Alert, and oriented X 3. Placed on personnel monitor and oxygen monitor. No reports of pain or discomfort. Reports non-productive cough that was a sudden onset today. Discussed care plan with patient. Flushed IV X 2.
[2023-01-23] MEDS: cefepime 2,000 MG in sodium chloride 0.9% (plus) 50 ML 100 MG IV (22:45)
[2023-01-23] MEDS: FUROsemide 10 mg/mL SDV 2mL 20 MG IVP (22:45)
[2023-01-23] MEDS: potassium chloride ER 20 mEq Tablet 40 MEQ PO (22:45)
[2023-01-23] MEDS: heparin 5,000 unit/mL INJ 1 mL IV (23:11)
[2023-01-23] MEDS: heparin drip 25,000 UNIT/500 ML PREMIX 22 UNIT IV (23:12)
[2023-01-23] MEDS: vancomycin 1,250 MG/250 ML PIGGYBACK 250 MG IV (23:12)
[2023-01-24] VITALS (23 sets, daily range): BP systolic 120–146; BP diastolic 56–81; PULSE 79–86; RESP 17–30; TEMP 36.4–37.4; O2SAT 90–97
[2023-01-24 05:41] LABS: Hematocrit 42.1 % (37-53); Mean Corpuscular HGB Conc 32.5 g/dL (30-55); Mean Corpuscular Hemoglobin 30.5 pg (27-33); Mean Corpuscular Volume 93.8 fl (82-101); Mean Platelet Volume 10.8 fL (7.4-10.4); Platelet Count 115 10^3/cmm (157-399); Red Blood Count 4.49 10^6/uL (3.85-5.65); Red Cell Distribution Width 15.9 % (12.1-15.1); White Blood Count 9.13 10^3/uL (3.29-11.43)
[2023-01-24 06:00] LABS: Partial Thromboplastin Time 68.1 SECONDS (23.9-36.7)
[2023-01-24 06:01] LABS: Blood Urea Nitrogen 12 mg/dL (8-23); C Reactive Protein 57.5 mg/L (0.0-4.9); Calcium 8.5 mg/dL (8.5-10.5); Carbon Dioxide 24 mmol/L (22-29); Chloride 103 mmol/L (98-107); Glomerular Filtration Rate 74.1 mL/min (90-130); Glucose 158 mg/dL (65-115); Magnesium 1.7 mg/dL (1.7-2.3); Osmolality Calculated 289 mOsm/kg (285-295); Sodium 138 mmol/L (136-145)
[2023-01-24 06:41] LABS: Absolute Neutrophil 8.2 10^3/cmm (1.4-6.5); Band Neutrophils Absolute 2.2 10^3/cmm (0.0-1.2); Eosinophils 0 %; Lymphocytes 2 %; Lymphocytes Absolute 0.7 10^3/cmm (1.2-3.4); Monocytes Absolute 0.2 10^3/cmm (0.1-0.6); Platelet Estimate Decreased (Normal); Segmented Neutrophils 66 %; Slide Review Slide Review Perform; Total Cells Counted 100 (0-100)
[2023-01-24] MEDS: morphine IR 15 mg Tablet PO ×2 (07:37→19:58)
[2023-01-24] MEDS: cefepime 2,000 MG in sodium chloride 0.9% (plus) 50 ML 100 MG IV ×2 (09:41→22:33)
[2023-01-24 12:19] LABS: Partial Thromboplastin Time 61.1 SECONDS (23.9-36.7)
--- NOTE | 2023-01-24 18:46 | PC.NURSE ---
Shift Summary: Uneventful shift. Up to a chair for about half of the day. Continues to be on heparin drip and receives antibiotics. PTT ordered for 1914. Med surge overflow.
[2023-01-24 20:20] LABS: Partial Thromboplastin Time 43.4 SECONDS (23.9-36.7)
[2023-01-24] MEDS: heparin 5,000 unit/mL INJ 1 mL IV (20:53)
[2023-01-24] MEDS: heparin drip 25,000 UNIT/500 ML PREMIX 25 UNIT IV (21:25)
--- NOTE | 2023-01-24 21:31 | USCV_ITS ---
Satish Fry Age: 67 Gender: M : 1955 Exam Date: 01/24/2023 07:49 Ordering Phys: Dania Sorto MD Technologist: Exam Location: [facility] [place] [facility] [place] Indication: pe BP: 132 / 81 HR: 80 Rhythm: Sinus Technical Quality: Adequate MEASUREMENTS (Male / Female) Normal Values 2D ECHO LVOT Diameter 2.0 cm LV Ejection Fraction MOD 2C 64.2 % LV Ejection Fraction 2C AL 63.1 % LA Diameter 4.1 cm M-MODE Aortic Annulus Diameter 3.8 cm LA Ao Ratio MM 1.2 MV E Point Septal Separation 0.9 cm DOPPLER AV Peak Velocity 147.0 cm/s LVOT Peak Velocity 96.0 cm/s AV Area Cont Eq vti 2.0 cm squared AV Area Cont Eq pk 2.1 cm squared MV Area PHT 5.0 cm squared Mitral E to A Ratio 0.7 MV E' Velocity 32.5 cm/s Mitral E to MV E' Ratio 10.2 Mitral E to LV E' Lateral Ratio 13.0 Mitral E to LV E' Septal Ratio 8.4 TR Peak Velocity 133.7 cm/s TR Peak Gradient 7.1 mmHg PV Peak Velocity 70.0 cm/s RV Acceleration Time 0.1 s FINDINGS Left Ventricle Normal left ventricular size, systolic function and wall thickness, with no regional wall motion abnormalities. Grade I/IV diastolic dysfunction (abnormal relaxation filling pattern), normal to mildly elevated filling pressures. Left ventricular ejection fraction is estimated at 60 %. Right Ventricle The right ventricle is upper limit of normal in size. There may be a minimal amount of hypokinesis. Right Atrium The right atrium is normal in size. Left Atrium The left atrium is normal in size. Mitral Valve Structurally normal mitral valve without significant stenosis or prolapse. There is no mitral regurgitation. Aortic Valve Structurally normal aortic valve without significant sclerosis or stenosis. There is no aortic regurgitation. Tricuspid Valve Structurally normal tricuspid valve. No tricuspid valve regurgitation. Insufficient tricuspid regurgitation jet to calculate pulmonary artery pressure. Pulmonic Valve Pulmonic valve not well visualized. Pericardium Small pericardial effusion. Echocardiographic findings suggest a non hemodynamically significant pericardial effusion. Aorta Normal ascending aorta dimension. IVC The inferior vena cava appears normal. CONCLUSIONS Normal left ventricular size, systolic function and wall thickness, with no regional wall motion abnormalities. Grade I/IV diastolic dysfunction (abnormal relaxation filling pattern), normal to mildly elevated filling pressures. Left ventricular ejection fraction is estimated at 60 %. The right ventricle is upper limit of normal in size. There may be a minimal amount of hypokinesis. No change from the previous study dictated 10/14/2020 Dr. Jeremy Mena MD (Electronically Signed) Final Date: 24 January 2023 15:36 S
--- NOTE | 2023-01-24 21:43 | PC.NURSE ---
Patient arrived to med/surg 253-2. Patient alert/oriented x4. Transferred to bed with SBA. Patient on 3L NC.
--- NOTE | 2023-01-24 22:32 | P.PN_ITS ---
Subjective 2 Subjective: He is feeling slightly better today. Breathing with some improvement. Denies chest pain. No hemoptysis. Vitals/I&O/Wt Last Vital Signs Temp 98.6 F 01/24/23 21:45 Pulse 82 01/24/23 21:45 Resp 18 01/24/23 21:45 BP 128/63 01/24/23 21:45 Pulse Ox 91 01/24/23 21:45 O2 Del Method Nasal Cannula 01/24/23 14:00 O2 Flow Rate 2 01/24/23 14:00 FiO2 5 01/24/23 04:00 01/24/23 01/24/23 01/24/23 06:59 14:59 22:59 Intake Total 769.033 / 3382.363 370 / 370 841.483 / 1211.483 Output Total 2510 / 2760 425 / 425 350 / 775 Balance -1740.967 / 622.363 -55 / -55 491.483 / 436.483 Weight last 48 hrs Weight 69.989 kg Weight 77.111 kg Weight 77.111 kg Physical Exam 2 Narrative: Visited by family. Const: COMMON NORMALS: patient oriented x3 and alert GENERAL APPEARANCE: c ooperative ORIENTATION/CONSCIOUSNESS: Yes awake HENMT: COMMON NORMALS: oropharynx normal Neck/C-Spine: COMMON NORMALS: no JVD Resp: COMMON NORMALS: normal respiratory effort and clear to auscultation bilaterally AUSCULTATION: clear to auscultation bilaterally Cardio: COMMON NORMALS: no JVD, regular rhythm, S1 normal heart sound present, S2 normal heart sound present and No murmurs present (Cardio) RHYTHM: regular rhythm HEART SOUNDS: S1 normal heart sound present and S2 normal heart sound present GI: COMMON NORMALS: Normal to inspection, nondistended, normoactive bowel sounds present, Soft to palpation and non-tender PALPATION: Yes Soft to palpation Extremity: COMMON NORMALS: no joint enlargement and no pedal edema Neuro: COMMON NORMALS: patient oriented x3 and moves all extremities S ENSORIUM/ORIENTATION: Yes alert Skin: COMMON NORMALS: no rashes or lesions noted GENERAL SKIN EXAM: no rashes or lesions noted Data 01/24/23 05:06 01/24/23 05:06 Micro: Microbiology 01/23/23 17:32 Blood Culture - Preliminary Blood NEGATIVE TO DATE 01/23/23 17:28 Blood Culture - Preliminary Blood NEGATIVE TO DATE 01/24/23 03:06 Gram Stain - Final Sputum - Expectorated Sputum A&P Assessment and plan (1) Secondary malignant neoplasm of liver and intrahepatic bile duct: (2) Secondary malignant neoplasm of brain: (3) Malignant neoplasm of right main bronchus: (4) Malignant neoplasm of upper lobe, left bronchus or lung: (5) Low back pain: (6) Nicotine addiction: (7) Pulmonary embolism: (8) Community acquired pneumonia: Plan Acute hypoxia: Still requiring 5 L oxygen. Related to community-acquired pneumonia and pulmonary embolism Reviewed vitals, CBC, PTT, BMP, CRP, magnesium. CTA. Discussed with him and family. Continue anticoagulation with heparin drip for now. Follow-up pending echocardiogram. Continue to monitor PTT with anticoagulation, at risk of bleeding. Continue treatment of pneumonia with antibiotics. Discussed with him and family risk of complications associated with the above conditions, monitor vitals, at risk of hypotension, shock, decompensation, monitor on telemetry at risk of arrhythmia. Monitor mental status, at risk of encephalopathy with cefepime. Monitor renal function and risk of renal injury with vancomycin. Status post contrast enhanced CT angiogram. Reviewed sputum culture. Reviewed blood culture. Follow-up with oncology for further reassessment of concerning lesion with lymph node versus mass. Patient has history of brain mets with good response to radiotherapy, I will start him on heparin drip and monitor in ICU Will request echo for right heart strain Patient has liver mets, has undergone treatment at [facility]: Lesion noted in the liver on CT, previously noted hemangioma. Discussed smoking cessation for 5 minutes: Patient understands risks including worse outcomes with lung cancer, as well as increased risk of clotting, PE recurrence, as well as high risk of fire, airway ortiz and injury smoking anywhere near oxygen. He states that he has maintained attention that he is quitting. Hypomagnesemia: Replace. Recheck magnesium. Attestations 2 Medical Necessity Statement*: Continue admission for assessment and management of multifactorial hypoxia with pulmonary embolism, pneumonia and gentleman with history of lung cancer. Diagnoses Secondary malignant neoplasm of liver and intrahepatic bile duct C78.7 Secondary malignant neoplasm of brain C79.31 Malignant neoplasm of right main bronchus C34.01 Malignant neoplasm of upper lobe, left bronchus or lung C34.12 Low back pain M54.5 Nicotine addiction F17.200 Pulmonary embolism I26.99 Community acquired pneumonia J18.9
[2023-01-25] VITALS (8 sets, daily range): BP systolic 124–160; BP diastolic 63–80; PULSE 80–94; RESP 16–22; TEMP 36.6–37.1; O2SAT 91–98
[2023-01-25] MEDS: magnesium sulfate premix 1 GM/100 ML PIGGYBACK IV (00:16)
[2023-01-25 03:06] LABS: Basophils % 0.2 %; Eosinophils % 0.1 %; Hematocrit 40.4 % (37-53); Lymphocytes # 0.7 10^3/uL (0.8-4.8); Lymphocytes % 7.1 %; Mean Corpuscular HGB Conc 31.7 g/dL (30-55); Mean Corpuscular Hemoglobin 30.5 pg (27-33); Mean Corpuscular Volume 96.4 fl (82-101); Mean Platelet Volume 11.4 fL (7.4-10.4); Monocytes # 0.4 10^3/uL (0.2-0.9); Monocytes % 4.3 %; Neutrophils # 8.44 10^3/uL (1.8-7.7); Neutrophils % 87.8 %; Nucleated Red Blood Cells % 0 %; Platelet Count 129 10^3/cmm (157-399); Red Blood Count 4.19 10^6/uL (3.85-5.65); Red Cell Distribution Width 16.4 % (12.1-15.1); White Blood Count 9.61 10^3/uL (3.29-11.43)
--- NOTE | 2023-01-25 03:11 | PC.NURSE ---
Lab staff reported to this nurse that patient was feeling SOB. This nurse when in to patients room and patient told this nurse he was having a little bit of a hard time breathing. This nurse checked patients O2 level and reavealed that it was low arounf 84%-86%. This nurses turned [patients supplemental O2 up to 5L to maintain O2 saturation of greater than or equal to 88%. Dr. Sorot and Respiratory therapy notified.
[2023-01-25 03:19] LABS: Partial Thromboplastin Time 40.3 SECONDS (23.9-36.7)
[2023-01-25 03:24] LABS: Blood Urea Nitrogen 16 mg/dL (8-23); Calcium 8.8 mg/dL (8.5-10.5); Carbon Dioxide 25 mmol/L (22-29); Chloride 100 mmol/L (98-107); Glomerular Filtration Rate 83.7 mL/min (90-130); Glucose 102 mg/dL (65-115); Magnesium 2.3 mg/dL (1.7-2.3); Osmolality Calculated 277 mOsm/kg (285-295); Sodium 133 mmol/L (136-145)
[2023-01-25] MEDS: heparin 5,000 unit/mL INJ 1 mL IV (03:31)
[2023-01-25] MEDS: cefepime 2,000 MG in sodium chloride 0.9% (plus) 50 ML 100 MG IV ×2 (09:47→21:33)
[2023-01-25 10:06] LABS: Partial Thromboplastin Time 67.8 SECONDS (23.9-36.7)
[2023-01-25] MEDS: vancomycin 1,000 MG in sodium chloride 0.9% 250 ML 250 MG IV ×2 (10:51→23:32)
[2023-01-25 14:38] LABS: Adenovirus Not Detected (NOT DETECT); Chlamydia Pneumoniae Not Detected (NOT DETECT); Coronavirus 229E,HKU1,NL63,OC4 Not Detected (NOT DETECT); Human Metapneumovirus Not Detected (NOT DETECT); Human Rhinovirus/Enterovirus Not Detected (NOT DETECT); Influenza A Not Detected (NOT DETECT); Influenza A H1 Not Detected (NOT DETECT); Influenza A H1-2009 Not Detected (NOT DETECT); Influenza A H3 Not Detected (NOT DETECT); Influenza B Not Detected (NOT DETECT); Mycoplasma Pneumoniae Not Detected (NOT DETECT); Parainfluenza Virus Type 1 Not Detected (NOT DETECT); Parainfluenza Virus Type 2 Detected (NOT DETECT); Parainfluenza Virus Type 3 Not Detected (NOT DETECT); Parainfluenza Virus Type 4 Not Detected (NOT DETECT); Respiratory Syncytial Virus A Not Detected (NOT DETECT); Respiratory Syncytial Virus B Not Detected (NOT DETECT); SARS-COV-2 Not Detected (NOT DETECT)
[2023-01-25] MEDS: morphine IR 15 mg Tablet PO (17:58)
[2023-01-25] MEDS: heparin drip 25,000 UNIT/500 ML PREMIX 28 UNIT IV (18:55)
--- NOTE | 2023-01-25 22:36 | P.PN_ITS ---
Subjective 2 Subjective: Had a difficult night, last night got more short of breath, required 5.5 L oxygen. This morning doing slightly better. Vitals/I&O/Wt Last Vital Signs Temp 98.6 F 01/25/23 20:00 Pulse 85 01/25/23 20:00 Resp 16 01/25/23 20:00 BP 152/80 01/25/23 20:00 Pulse Ox 95 01/25/23 20:00 O2 Del Method Nasal Cannula 01/25/23 20:00 O2 Flow Rate 3 01/25/23 20:00 FiO2 5 01/24/23 04:00 01/25/23 01/25/23 01/25/23 06:59 14:59 22:59 Intake Total 633.183 / 1844.666 719.2 / 719.2 887.617 / 1606.817 Output Total 250 / 1025 250 / 250 800 / 1050 Balance 383.183 / 819.666 469.2 / 469.2 87.617 / 556.817 Weight last 48 hrs Weight 69.989 kg Weight 69.989 kg Physical Exam 2 Const: COMMON NORMALS: patient oriented x3 and alert GENERAL APPEARANCE: c ooperative ORIENTATION/CONSCIOUSNESS: Yes awake HENMT: COMMON NORMALS: oropharynx normal Neck/C-Spine: COMMON NORMALS: no JVD Resp: COMMON NORMALS: normal respiratory effort and clear to auscultation bilaterally AUSCULTATION: clear to auscultation bilaterally Cardio: COMMON NORMALS: no JVD, regular rhythm, S1 normal heart sound present, S2 normal heart sound present and No murmurs present (Cardio) RHYTHM: regular rhythm HEART SOUNDS: S1 normal heart sound present and S2 normal heart sound present GI: COMMON NORMALS: Normal to inspection, nondistended, normoactive bowel sounds present, Soft to palpation and non-tender PALPATION: Yes Soft to palpation Extremity: COMMON NORMALS: no joint enlargement and no pedal edema Neuro: COMMON NORMALS: patient oriented x3 and moves all extremities S ENSORIUM/ORIENTATION: Yes alert Skin: COMMON NORMALS: no rashes or lesions noted GENERAL SKIN EXAM: no rashes or lesions noted Data 01/25/23 02:58 01/25/23 02:58 Micro: Microbiology 01/24/23 03:06 Gram Stain - Final Sputum - Expectorated Sputum Sputum Culture - Preliminary 01/23/23 17:32 Blood Culture - Preliminary Blood NEGATIVE TO DATE 01/23/23 17:28 Blood Culture - Preliminary Blood NEGATIVE TO DATE A&P Assessment and plan (1) Secondary malignant neoplasm of liver and intrahepatic bile duct: (2) Secondary malignant neoplasm of brain: (3) Malignant neoplasm of right main bronchus: (4) Malignant neoplasm of upper lobe, left bronchus or lung: (5) Low back pain: (6) Nicotine addiction: (7) Pulmonary embolism: (8) Community acquired pneumonia: Plan Acute hypoxia: Worse overnight, with worsening dyspnea, requiring 5.5 L nasal cannula oxygen. Later on the day with some improvement down to 3 L nasal cannula. Reviewed respiratory viral panel, positive for parainfluenza virus. Maintain isolation. Reviewed vitals, CBC, BMP, magnesium. Continue treatment of pneumonia. Continue treatment of PE. Related to community-acquired pneumonia and pulmonary embolism Reviewed echocardiogram, discussed with him, noted mild RV strain. At risk of hypotension, monitor. Discussed with him to avoid dehydration. At risk of arrhythmia, monitor on telemetry. On heparin drip, at risk of bleeding, reviewed PTT. Reviewed hemoglobin, platelets. Noted platelets 129. Hemoglobin with mild decreased down to 12.8, no rapid decrease. Reassess CBC. Switch anticoagulation to Eliquis. Discussed with residential case manager. Will need home oxygen evaluation. Follow-up with oncology for further reassessment of concerning lesion with lymph node versus mass. Patient has history of brain mets with good response to radiotherapy, I will start him on heparin drip and monitor in ICU Will request echo for right heart strain Patient has liver mets, has undergone treatment at [place]: Lesion noted in the liver on CT, previously noted hemangioma. Discussed smoking cessation for 5 minutes: Patient understands risks including worse outcomes with lung cancer, as well as increased risk of clotting, PE recurrence, as well as high risk of fire, airway ortiz and injury smoking anywhere near oxygen. He states that he has maintained attention that he is quitting. Hypomagnesemia: Replaced Attestations 2 Medical Necessity Statement*: Continue admission for assessment and management of multifactorial hypoxia with pulmonary embolism, pneumonia and gentleman with history of lung cancer. Diagnoses Secondary malignant neoplasm of liver and intrahepatic bile duct C78.7 Secondary malignant neoplasm of brain C79.31 Malignant neoplasm of right main bronchus C34.01 Malignant neoplasm of upper lobe, left bronchus or lung C34.12 Low back pain M54.5 Nicotine addiction F17.200 Pulmonary embolism I26.99 Community acquired pneumonia J18.9
[2023-01-25] MEDS: apixaban 5 mg Tablet 10 MG PO (23:32)
[2023-01-26] VITALS (8 sets, daily range): BP systolic 109–152; BP diastolic 74–82; PULSE 91–104; RESP 16–20; TEMP 37–37.4; O2SAT 87–94; BMI 23.4
[2023-01-26] MEDS: ipratropium-albuterol 3 mL Neb INHALATION ×3 (01:00→13:47)
[2023-01-26 04:57] LABS: Basophils % 0.2 %; Eosinophils % 0.4 %; Hematocrit 41.6 % (37-53); Lymphocytes # 0.4 10^3/uL (0.8-4.8); Lymphocytes % 7.7 %; Mean Corpuscular HGB Conc 31.7 g/dL (30-55); Mean Corpuscular Hemoglobin 30.6 pg (27-33); Mean Corpuscular Volume 96.3 fl (82-101); Mean Platelet Volume 11.4 fL (7.4-10.4); Monocytes # 0.4 10^3/uL (0.2-0.9); Monocytes % 6.4 %; Neutrophils # 4.64 10^3/uL (1.8-7.7); Neutrophils % 84.9 %; Nucleated Red Blood Cells % 0 %; Platelet Count 111 10^3/cmm (157-399); Red Blood Count 4.32 10^6/uL (3.85-5.65); Red Cell Distribution Width 15.9 % (12.1-15.1); White Blood Count 5.46 10^3/uL (3.29-11.43)
[2023-01-26 05:19] LABS: Anion Gap 11.6 (5-19); Blood Urea Nitrogen 10 mg/dL (8-23); Carbon Dioxide 28 mmol/L (22-29); Chloride 99 mmol/L (98-107); Glomerular Filtration Rate 111.8 mL/min (90-130); Glucose 86 mg/dL (65-115); Osmolality Calculated 278 mOsm/kg (285-295); Potassium 3.6 mmol/L (3.5-5.1); Sodium 135 mmol/L (136-145)
[2023-01-26] MEDS: apixaban 5 mg Tablet 10 MG PO (08:42)
[2023-01-26] MEDS: tamsulosin 0.4 mg Capsule PO (08:42)
[2023-01-26] MEDS: gabapentin 300 mg Capsule PO (08:42)
[2023-01-26] MEDS: cefepime 2,000 MG in sodium chloride 0.9% (plus) 50 ML 100 MG IV (11:09)
--- NOTE | 2023-01-26 11:34 | PC.SOCIAL ---
IMM Update pg 2 of IMM updated and reviewed w/ patient. Copy provided and copy dated, initialed and placed in chart.
[2023-01-26] MEDS: vancomycin 1,000 MG in sodium chloride 0.9% 250 ML 250 MG IV (11:45)
--- NOTE | 2023-01-26 13:35 | PM.DCS ---
Discharge Providers Date of Admission: 01/23/23 21:27 Date of Discharge: January 26, 2023 Attending Provider at Admission: Dania Sorto MD Attending Provider at Discharge: Felipe Reed Primary Care Provider: Rico Winters DO Diagnoses at Discharge Discharge Diagnosis (1) Secondary malignant neoplasm of liver and intrahepatic bile duct: Status: Acute (2) Secondary malignant neoplasm of brain: Status: Acute (3) Malignant neoplasm of right main bronchus: Status: Acute Permanent problem details: Stage IIB - T2a, N1, M0 (4) Malignant neoplasm of upper lobe, left bronchus or lung: Status: Acute Permanent problem details: Stage IB - T2a, N0, M0 (5) Low back pain: Status: Acute (6) Nicotine addiction: Status: Acute (7) Pulmonary embolism: Status: Acute (8) Community acquired pneumonia: Status: Acute Reason for Visit Reason for Visit: SOB, coughing Hospital Course Hospital Course Very pleasant 67-year-old gentleman with metastatic lung cancer, COPD, other medical problems was admitted for assessment management after presenting with shortness of breath and cough, found to have acute hypoxia, not normally on oxygen, requiring 5 L of oxygen by nasal cannula, on admission with finding of community-acquired pneumonia as well as pulmonary embolism. Was treated with cefepime and vancomycin during hospitalization. Additionally was found to be positive for parainfluenza, likely initial infection with secondary superimposed bacterial pneumonia. His condition has been gradually improving, he is weaning down on oxygen, currently down to 4 L nasal,, subjectively he is feeling better. Ambulating in the room. Tolerating anticoagulatio which has been switched from heparin drip to Eliquis. Please follow-up for continued improvement. Encourage smoking cessation. He is asked to follow-up also with oncology given interval increase size of 2.6 x 2.2 x 1.9 cm right hilar soft tissue lesion with possible recurrent right lung neoplasm versus reactive adenopathy. Consider follow-up PET/CT after recovers from acute infection. Physical Exam Narrative: He is overall improving. Denies new symptoms. He is coughing up some phlegm. Const: COMMON NORMALS: patient oriented x3 and alert GENERAL APPEARANCE: cooperative ORIENTATION/CONSCIOUSNESS: Yes awake HENMT: COMMON NORMALS: oropharynx normal Neck/C-Spine: COMMON NORMALS: no JVD Resp: COMMON NORMALS: normal respiratory effort and clear to auscultation bilaterally AUSCULTATION: clear to auscultation bilaterally Cardio: COMMON NORMALS: no JVD, regular rhythm, S1 normal heart sound present, S2 normal heart sound present and No murmurs present (Cardio) RHYTHM: regular rhythm HEART SOUNDS: S1 normal heart sound present and S2 normal heart sound present GI: COMMON NORMALS: Normal to inspection, nondistended, normoactive bowel sounds present, Soft to palpation and non-tender PALPATION: Yes Soft to palpation Extremity: COMMON NORMALS: no joint enlargement and no pedal edema Neuro: COMMON NORMALS: patient oriented x3 and moves all extremities SENSORIUM/ORIENTATION: Yes alert Skin: COMMON NORMALS: no rashes or lesions noted GENERAL SKIN EXAM: no rashes or lesions noted Discharge Data Studies Completed and Pending Completed Studies During Hospitalization Category Date Time Status CTA chest [CT angio chest PE protcl [id number]] Stat Cat Scan 01/23/23 19:12 Completed XR chest 1V portable [id number] Stat Exams 01/23/23 17:20 Completed CV. echo complete* [id number] Routine Ultrasound 01/24/23 21:31 Completed Pending at discharge Category Date Time Status Basic Metabolic Panel AM LABS Lab 01/27/23 04:00 Ordered Blood Culture Stat Lab 01/23/23 17:32 Results Complete Blood Count w/Auto AM LABS Lab 01/27/23 04:00 Ordered Vancomycin Trough Timed Lab 01/26/23 22:00 Ordered Radiology Impressions Chest X-Ray 01/23/23 17:20 IMPRESSION: Small left pleural effusion. Chest CTA 01/23/23 19:12 IMPRESSION: 1. Interval appearance of moderate bilateral lower lobe pneumonia with [id number] right middle lobe pneumonia. 2. Stable right perihilar surgical clips. 3. Interval increased size of 2.6 x 2.3 x 1.9 cm right hilar soft tissue lesion. Recurrent right lung neoplasm versus reactive adenopathy. Axial series 16, images 236-250. Correlation with nonemergent PET-CT scan may be helpful. 4. Interval appearance of 4.8 cm low-density lesion lateral segment left liver consistent with solitary liver metastasis versus hepatic abscess. 5. Near occlusive segmental pulmonary emboli in the medial and lateral RML segmental pulmonary arteries. 6. Occlusive segmental right lower lobe pulmonary embolus versus more likely chronic sequela from radiation therapy, axial series 16, images 23-289. 7. Mild right heart strain with RV/LV ratio 1.0. ADDENDUM: 01/23/232050 Impression: 4. Compared with CT abdomen pelvis with and without contrast dated March 12, 2022, possibly stable 4.7 cm lateral segment left lobe liver lesion which was previously thought to be hepatic hemangioma. THIS REPORT CONTAINS FINDINGS THAT MAY BE CRITICAL TO PATIENT CARE. The findings were verbally communicated via telephone conference with THIERNO PRECIADO at 8:50 PM ANESTHESIOLOGIST ASSISTANT on 01/23/2023. The findings were acknowledged and understood. Laboratory Results WBC 5.46 10^3/uL (3.29-11.43) 01/26/23 04:17 RBC 4.32 10^6/uL (3.85-5.65) 01/26/23 04:17 Hgb 13.20 g/dL (11.27-16.99) 01/26/23 04:17 Hct 41.6 % (37-53) 01/26/23 04:17 MCV 96.3 fl (82-101) 01/26/23 04:17 MCH 30.6 pg (27-33) 01/26/23 04:17 MCHC 31.7 g/dL (30-55) 01/26/23 04:17 RDW 15.9 % (12.1-15.1) H 01/26/23 04:17 Plt Count 111 10^3/cmm (157-399) L 01/26/23 04:17 MPV 11.4 fL (7.4-10.4) H 01/26/23 04:17 Neut % (Auto) 84.9 % 01/26/23 04:17 Lymph % (Auto) 7.7 % 01/26/23 04:17 [place] % (Auto) 6.4 % 01/26/23 04:17 Eos % (Auto) 0.4 % 01/26/23 04:17 Baso % (Auto) 0.2 % 01/26/23 04:17 Neut # (Auto) 4.64 10^3/uL (1.8-7.7) 01/26/23 04:17 Lymph # (Auto) 0.4 10^3/uL (0.8-4.8) L 01/26/23 04:17 [place] # (Auto) 0.4 10^3/uL (0.2-0.9) 01/26/23 04:17 Eos # (Auto) 0.0 10^3/uL (0.0-0.8) 01/26/23 04:17 Baso # (Auto) 0.0 10^3/uL (0.0-0.1) 01/26/23 04:17 Nucleated RBC % (auto) 0 % 01/26/23 04:17 Total Counted 100 (0-100) 01/24/23 05:06 Atypical Lymphs % 6.0 % (0-5) H 01/24/23 05:06 Absolute Neutrophils 8.2 10^3/cmm (1.4-6.5) H 01/24/23 05:06 Segmented Neutrophils 66 % 01/24/23 05:06 Abs Segm Neuts (Man) 6.0 10/cmm (1.6-7.1) 01/24/23 05:06 Band Neutrophils 24.0 % 01/24/23 05:06 Abs Band Neuts (Man) 2.2 10^3/cmm (0.0-1.2) H 01/24/23 05:06 Absolute Lymphocytes 0.7 10^3/cmm (1.2-3.4) L 01/24/23 05:06 Lymphocytes (Manual) 2 % 01/24/23 05:06 Monocytes (Manual) 2.0 % 01/24/23 05:06 Absolute Monocytes 0.2 10^3/cmm (0.1-0.6) 01/24/23 05:06 Eosinophils (Manual) 0 % 01/24/23 05:06 Absolute Eosinophils 0.0 10^3/cmm (0.0-0.7) 01/24/23 05:06 Basophils (Manual) 0.0 % 01/24/23 05:06 Absolute Basophils 0.0 10^3/cmm (0.0-0.2) 01/24/23 05:06 Nucleated RBCs # 0.0 /100WBC 01/26/23 04:17 Platelet Estimate Decreased (Normal) 01/24/23 05:06 PT 14.70 SECONDS (12.1-14.9) 01/23/23 17:28 INR 1.12 (0.8-1.2) 01/23/23 17:28 APTT 53.0 SECONDS (23.9-36.7) H 01/25/23 23:08 Specimen Type Arterial 01/23/23 17:38 Sample Site Brachial, right 01/23/23 17:38 ABG pH 7.44 (7.35-7.45) 01/23/23 17:38 ABG pCO2 39.3 mmHg (35-45) 01/23/23 17:38 ABG pO2 52.3 mmHg (80.0-100.0) L 01/23/23 17:38 ABG PO2/FiO2 Ratio 0 01/23/23 17:38 ABG HCO3 26.5 mmol/L (22-26) H 01/23/23 17:38 ABG Base Excess 2.2 mmol/L (-2.0-2.0) H 01/23/23 17:38 [place]ama Test N/a 01/23/23 17:38 Hematocrit 41.8 % (42-52) L 01/23/23 17:38 Hgb O2 Saturation 85.8 % (95-100) L 01/23/23 17:38 Carboxyhemoglobin 5.2 %THgb (0.4-20.1) 01/23/23 17:38 Methemoglobin 0.6 % (0.4-1.5) 01/23/23 17:38 Total Hemoglobin 13.6 g/dL (14-18) L 01/23/23 17:38 O2 Delivery Device Nc 01/23/23 17:38 O2 Liters/Min 6.0 % 01/23/23 17:38 FiO2 44.0 % 01/23/23 17:38 Corn Detasseler Machine Operator ID [id number] 01/23/23 17:38 Sodium 135 mmol/L (136-145) L 01/26/23 04:17 Potassium 3.6 mmol/L (3.5-5.1) 01/26/23 04:17 Chloride 99 mmol/L (98-107) 01/26/23 04:17 Carbon Dioxide 28 mmol/L (22-29) 01/26/23 04:17 Anion Gap 11.6 (5-19) 01/26/23 04:17 BUN 10 mg/dL (8-23) 01/26/23 04:17 Creatinine 0.7 mg/dL (0.7-1.2) 01/26/23 04:17 GFR Calculation 111.8 mL/min (90-130) 01/26/23 04:17 Glucose 86 mg/dL (65-115) 01/26/23 04:17 Calculated Osmolality 278 mOsm/kg (285-295) L 01/26/23 04:17 Lactic Acid 1.6 mmol/L (0.5-2.2) 01/23/23 17:28 Calcium 9.0 mg/dL (8.5-10.5) 01/26/23 04:17 Magnesium 2.3 mg/dL (1.7-2.3) 01/25/23 02:58 Total Bilirubin 0.4 mg/dL (0.15-1.2) 01/23/23 17:28 AST 20 U/L (0-40) 01/23/23 17:28 ALT 9 U/L (0-41) 01/23/23 17:28 Alkaline Phosphatase 101 U/L (40-130) 01/23/23 17:28 C-Reactive Protein 57.5 mg/L (0.0-4.9) H 01/24/23 05:06 NT-Pro-B Natriuret Pep 1317 pg/mL (0-125) H 01/23/23 17:28 Total Protein 8.1 g/dL (6.6-8.7) 01/23/23 17:28 Albumin 4.1 g/dL (3.5-5.2) 01/23/23 17:28 Globulin 4.0 g/dL (1.3-4.6) 01/23/23 17:28 Urine Color Yellow (Yellow) 01/23/23 18:55 Urine Appearance Clear (CLEAR) 01/23/23 18:55 Urine pH 7 (5-7) 01/23/23 18:55 Ur Specific [place] 1.005 (1.005-1.030) 01/23/23 18:55 Urine Protein Neg (Negative) 01/23/23 18:55 Urine Glucose (UA) Norm (Normal) 01/23/23 18:55 Urine Ketones Negative (Negative) 01/23/23 18:55 Urine Blood Neg (Negative) 01/23/23 18:55 Urine Nitrate Negative (Negative) 01/23/23 18:55 Urine Bilirubin Neg (Negative) 01/23/23 18:55 Urine Urobilinogen Norm mg/dL (Negative) 01/23/23 18:55 Ur Leukocyte Esterase Negative (Negative) 01/23/23 18:55 Nasal Influ A H1 2009 PCR Not detected (NOT DETECT) 01/23/23 21:00 Adenovirus (PCR) Not detected (NOT DETECT) 01/23/23 21:00 C. pneumoniae DNA (PCR) Not detected (NOT DETECT) 01/23/23 21:00 Coronavirus 229E (PCR) Not detected (NOT DETECT) 01/23/23 21:00 Human Metapneumovir PCR Not detected (NOT DETECT) 01/23/23 21:00 Influenza A (H1) PCR Not detected (NOT DETECT) 01/23/23 21:00 Influenza A (H3) PCR Not detected (NOT DETECT) 01/23/23 21:00 Influenza Type A Ag negative (Negative) 01/23/23 18:01 Influenza Type A (PCR) Not detected (NOT DETECT) 01/23/23 21:00 Influenza Type B Ag negative (Negative) 01/23/23 18:01 Influenza Type B (PCR) Not detected (NOT DETECT) 01/23/23 21:00 M. pneumoniae (PCR) Not detected (NOT DETECT) 01/23/23 21:00 Parainfluenza 1 (PCR) Not detected (NOT DETECT) 01/23/23 21:00 Parainfluenza 2 (PCR) Detected (NOT DETECT) A 01/23/23 21:00 Parainfluenza 3 (PCR) Not detected (NOT DETECT) 01/23/23 21:00 Parainfluenza 4 (PCR) Not detected (NOT DETECT) 01/23/23 21:00 RSV Type A (PCR) Not detected (NOT DETECT) 01/23/23 21:00 RSV Type B (PCR) Not detected (NOT DETECT) 01/23/23 21:00 Entero/Rhino (PCR) Not detected (NOT DETECT) 01/23/23 21:00 SARS-CoV-2 (PCR) Not detected (NOT DETECT) 01/23/23 21:00 SARS-CoV-2 Ag (Rapid) negative (Negative) 01/23/23 18:01 Vitals Last Vital Signs Temp 98.9 F 01/26/23 10:59 Pulse 97 01/26/23 10:59 Resp 16 01/26/23 10:59 BP 109/77 01/26/23 10:59 Pulse Ox 94 01/26/23 10:59 O2 Del Method Nasal Cannula 01/26/23 10:59 O2 Flow Rate 4 01/26/23 10:59 FiO2 5 01/24/23 04:00 Discharge Plan Discharge Patient Disposition: Home Condition: Stable Prescriptions: New Eliquis 5 mg Tablet 10 mg PO BID@0900,2100 Qty: 180 0RF Rx Instructions: 10mg BID for 1 week then switch to 5mg BID linezolid 600 mg tablet 600 mg PO BID Qty: 10 0RF cefdinir 300 mg capsule 300 mg PO BID Qty: 14 0RF Continued Stiolto Respimat 2.5-2.5 mcg/actuation mist 2 puff INHALATION DAILY Qty: 4 3RF tamsulosin 0.4 mg capsule 0.4 mg PO DAILY guaifenesin 400 mg tablet 400 mg PO BID PRN (Reason: unknown) cetirizine [Zyrtec] 10 mg tablet 10 mg PO DAILY diphenhydramine HCl [Benadryl Allergy] 25 mg tablet 25 mg PO BID PRN (Reason: unknown) gabapentin 300 mg capsule 300 mg PO TID fluticasone propionate [Flonase Allergy Relief] 50 mcg/actuation spray,suspension 1 spray INTRANASAL BID PRN (Reason: Nasal Congestion) Rx Instructions: administer into each nostril Asmanex Twisthaler 110 mcg/ actuation (30) aerosol powdr breath activated 2 inh INHALATION DAILY 90 Days Qty: 3 3RF Rx Instructions: administer 1 hour before bedtime naloxone [Narcan] 4 mg/actuation spray,non-aerosol 1 spray intranasal .Q2-3M PRN (Reason: opioid overdose) Qty: 2 0RF Rx Instructions: spray 1 dose into ONE nostril; alternate nostrils w each dose until help arrives oxycodone 10 mg tablet See Rx Instructions PO QID PRN (Reason: pain) 30 Days Qty: 150 0RF Rx Instructions: 1-2 tablets PO four times daily PRN; alprazolam 0.5 mg tablet 0.5 mg PO TID PRN (Reason: anxiety) Qty: 90 1RF albuterol sulfate 2.5 mg /3 mL (0.083 %) Solution For Nebulization 2.5 mg INHALATION Q6H PRN (Reason: Shortness Of Breath) albuterol sulfate [ProAir HFA] 90 mcg/actuation Hfa Aerosol Inhaler 2 puff INHALATION QID PRN (Reason: Shortness Of Breath) cholecalciferol (vitamin D3) [Vitamin D3] 50 mcg (2,000 unit) tablet 4,000 unit PO DAILY olodaterol 2.5 mcg/actuation Mist 2 inh INHALATION DAILY Held Tagrisso 40 mg tablet 80 mg PO DAILY Qty: 56 2RF Hold Instructions: Resume on 02/01/23. Discontinued diclofenac sodium 75 mg Tablet,Delayed Release (Dr/Ec) 75 mg PO BID Discharge Orders: Discharge Order (Routine); Ordered 01/26/23 Ordered By: Felipe Reed Other Ambulatory Orders: DME: Oxygen (Order) Location: None Selected Ordered By: Felipe Reed Referrals: Rico Winters DO [Primary Care Provider] - 4-7 days Gino Grissom MD [Hospitalist] - 1 week (Increased in size R hilar mass) Discharge Diet: Cardiac Discharge Activity: Increase activity as tolerated and Oxygen as instructed Patient Instructions: Linezolid (By mouth), Levofloxacin (By injection) (Levaquin, Levofloxacina), Opioid Safety Activity Restrictions/Additional Instructions: Follow-up with your primary provider for reassessment of recovery from parainfluenza infection, superimposed bacterial pneumonia, as well as pulmonary embolism. Complete antibiotic course. Continue anticoagulation with Eliquis, take 10 mg for 1 week twice daily, then decrease to 5 mg twice daily. Follow-up with your oncologist for reassessment, discussed noted increase in size of right lung hilar soft tissue lesion. Discharge Attestations Time Spent in Discharge Care*: greater than 30 min Quality Metrics Clinical Quality Measures [ No reported AMI, CVA or VTE this stay] Coding Level of Care Code 34712 Total time (in minutes) for Discharge: 45 Diagnoses Secondary malignant neoplasm of liver and intrahepatic bile duct C78.7 Secondary malignant neoplasm of brain C79.31 Malignant neoplasm of right main bronchus C34.01 Malignant neoplasm of upper lobe, left bronchus or lung C34.12 Low back pain M54.5 Nicotine addiction F17.200 Pulmonary embolism I26.99 Community acquired pneumonia J18.9
== END 2023-01-26 14:26 | disposition home or self-care (01) | DRG 175 ==
LOC: ER 20:26 → MEDSURG 20:36 → ICU 21:48 → MEDSURG 01-24 21:25
PROVIDERS: Emergency Medicine; Admitting Provider Internal Medicine; Emergency Provider Emergency Medicine; PCP Emergency Medicine Emergency Medical Services; Visit Provider Internal Medicine
DX: I26.99 Other pulmonary embolism without acute cor pulmonale (principal); J15.9 Unspecified bacterial pneumonia; J44.0 Chronic obstructive pulmonary disease with (acute) lower respiratory infection; C78.7 Secondary malignant neoplasm of liver and intrahepatic bile duct; F17.210 Nicotine dependence, cigarettes, uncomplicated; F41.9 Anxiety disorder, unspecified; F43.10 Post-traumatic stress disorder, unspecified; E78.5 Hyperlipidemia, unspecified; I25.10 Atherosclerotic heart disease of native coronary artery without angina pectoris; I10 Essential (primary) hypertension; M54.50 Low back pain, unspecified; R09.02 Hypoxemia; B34.8 Other viral infections of unspecified site; R91.8 Other nonspecific abnormal finding of lung field; Z11.52 Encounter for screening for COVID-19; Z85.828 Personal history of other malignant neoplasm of skin; Z85.118 Personal history of other malignant neoplasm of bronchus and lung; Z90.2 Acquired absence of lung [part of]; Z92.3 Personal history of irradiation; Z86.19 Personal history of other infectious and parasitic diseases
CPT/HCPCS: 36415; 36600; 71045; 71275; 80048; 80053; 81003; 82805; 83605; 83735; 83880; 85007; 85025; 85610; 85730; 86140; 87040; 87070; 87205; 87426; 87486; 87581; 87633; 87804; 93005; 93306; 94640; 94760; 96365; 96367; 96375; 96376; 99285; J0456; J0692; J0696; J1644; J1940; J2930; J3370; J3475; J7030; J7050; Q9967

== ENCOUNTER 2023-02-24 11:50 | Oncology outpatient (recurring) (ONCR) | payer OTHER, SELFPAY ==
[2023-02-24 12:00] VITALS: BP 121/76; PULSE 94; RESP 16; TEMP 36.9; O2SAT 92
[2023-02-24 12:11] LABS: Basophils % 0.4 %; Eosinophils # 0.2 10^3/uL (0.0-0.8); Eosinophils % 3.1 %; Hematocrit 37.4 % (37-53); Lymphocytes % 13.2 %; Mean Corpuscular HGB Conc 32.1 g/dL (30-55); Mean Corpuscular Volume 93.5 fl (82-101); Mean Platelet Volume 10.2 fL (7.4-10.4); Monocytes # 0.7 10^3/uL (0.2-0.9); Monocytes % 9.9 %; Neutrophils # 5.39 10^3/uL (1.8-7.7); Neutrophils % 73.1 %; Nucleated Red Blood Cells % 0 %; Platelet Count 170 10^3/cmm (157-399); Red Cell Distribution Width 14.2 % (12.1-15.1); White Blood Count 7.37 10^3/uL (3.29-11.43)
[2023-02-24 12:32] LABS: Alanine Aminotransferase 16 U/L (0-41); Albumin Level 3.6 g/dL (3.5-5.2); Alkaline Phosphatase 85 U/L (40-130); Anion Gap 13.5 (5-19); Aspartate Amino Transferase 28 U/L (0-40); Blood Urea Nitrogen 13 mg/dL (8-23); Calcium 9.1 mg/dL (8.5-10.5); Carbon Dioxide 26 mmol/L (22-29); Chloride 104 mmol/L (98-107); Globulin 4.7 g/dL (1.3-4.6); Glomerular Filtration Rate 95.8 mL/min (90-130); Glucose 106 mg/dL (65-115); Osmolality Calculated 289 mOsm/kg (285-295); Potassium 4.5 mmol/L (3.5-5.1); Sodium 139 mmol/L (136-145); Total Bilirubin 0.3 mg/dL (0.15-1.2); Total Protein 8.3 g/dL (6.6-8.7)
== END 2023-03-09 23:59 | disposition home or self-care (01) ==
PROVIDERS: PCP Emergency Medicine Emergency Medical Services; Visit Provider Internal Medicine Medical Oncology
DX: C78.02 Secondary malignant neoplasm of left lung; C79.31 Secondary malignant neoplasm of brain; C78.7 Secondary malignant neoplasm of liver and intrahepatic bile duct; F17.210 Nicotine dependence, cigarettes, uncomplicated; Z79.899 Other long term (current) drug therapy; Z92.21 Personal history of antineoplastic chemotherapy; Z92.3 Personal history of irradiation; Z95.828 Presence of other vascular implants and grafts; Z90.2 Acquired absence of lung [part of]
CPT/HCPCS: 36591; 80053; 85025; 99214; J1642

== ENCOUNTER 2023-05-12 12:06 | Oncology outpatient (recurring) (ONCR) | payer OTHER, SELFPAY ==
[2023-05-12 12:42] LABS: Basophils % 0.6 %; Eosinophils # 0.3 10^3/uL (0.0-0.8); Hematocrit 37.4 % (37-53); Lymphocytes # 1.1 10^3/uL (0.8-4.8); Lymphocytes % 22.6 %; Mean Corpuscular HGB Conc 31.8 g/dL (30-55); Mean Corpuscular Hemoglobin 30.2 pg (27-33); Mean Corpuscular Volume 94.9 fl (82-101); Mean Platelet Volume 10.3 fL (7.4-10.4); Monocytes # 0.6 10^3/uL (0.2-0.9); Monocytes % 11.8 %; Neutrophils # 2.83 10^3/uL (1.8-7.7); Neutrophils % 58.8 %; Nucleated Red Blood Cells % 0 %; Platelet Count 145 10^3/cmm (157-399); Red Blood Count 3.94 10^6/uL (3.85-5.65); Red Cell Distribution Width 14.6 % (12.1-15.1); White Blood Count 4.82 10^3/uL (3.29-11.43)
[2023-05-12 13:08] LABS: Tumor Marker Alpha Fetoprotein 2.8 ng/mL (0-8.3)
[2023-05-12 13:19] LABS: Alanine Aminotransferase 12 U/L (0-41); Albumin Level 3.9 g/dL (3.5-5.2); Alkaline Phosphatase 84 U/L (40-130); Anion Gap 16.4 (5-19); Aspartate Amino Transferase 19 U/L (0-40); Blood Urea Nitrogen 17 mg/dL (8-23); Calcium 9.3 mg/dL (8.5-10.5); Carbon Dioxide 25 mmol/L (22-29); Chloride 102 mmol/L (98-107); Globulin 4.7 g/dL (1.3-4.6); Glomerular Filtration Rate 74.1 mL/min (90-130); Glucose 132 mg/dL (65-115); Osmolality Calculated 291 mOsm/kg (285-295); Potassium 4.4 mmol/L (3.5-5.1); Sodium 139 mmol/L (136-145); Total Bilirubin 0.4 mg/dL (0.15-1.2); Total Protein 8.6 g/dL (6.6-8.7)
== END 2023-06-07 23:59 | disposition home or self-care (01) ==
PROVIDERS: PCP Emergency Medicine Emergency Medical Services; Visit Provider Internal Medicine Medical Oncology
DX: Z45.2 Encounter for adjustment and management of vascular access device (principal); C78.02 Secondary malignant neoplasm of left lung; C79.31 Secondary malignant neoplasm of brain; C78.7 Secondary malignant neoplasm of liver and intrahepatic bile duct; F17.210 Nicotine dependence, cigarettes, uncomplicated; Z79.899 Other long term (current) drug therapy; Z92.21 Personal history of antineoplastic chemotherapy; Z92.3 Personal history of irradiation; C34.12 Malignant neoplasm of upper lobe, left bronchus or lung; C34.01 Malignant neoplasm of right main bronchus; Z95.828 Presence of other vascular implants and grafts
CPT/HCPCS: 36591; 80053; 82105; 85025; 99214

== ENCOUNTER → 2023-05-18 13:58 | Outpatient (BNVA) | payer OTHER, SELFPAY | PROVIDERS: PCP Emergency Medicine Emergency Medical Services; Visit Provider Dermatology | DX: D18.01 Hemangioma of skin and subcutaneous tissue (principal); D23.61 Other benign neoplasm of skin of right upper limb, including shoulder; L57.8 Other skin changes due to chronic exposure to nonionizing radiation | CPT/HCPCS: 99213 ==

== ENCOUNTER 2023-06-17 10:01 | Oncology outpatient (recurring) (ONCR) | payer OTHER, SELFPAY | END 2023-07-08 23:59 | disposition home or self-care (01) | PROVIDERS: PCP Emergency Medicine Emergency Medical Services; Visit Provider Internal Medicine Medical Oncology | DX: Z45.2 Encounter for adjustment and management of vascular access device (principal); C78.02 Secondary malignant neoplasm of left lung; C79.31 Secondary malignant neoplasm of brain; C78.7 Secondary malignant neoplasm of liver and intrahepatic bile duct; F17.210 Nicotine dependence, cigarettes, uncomplicated; Z79.899 Other long term (current) drug therapy; Z92.21 Personal history of antineoplastic chemotherapy; Z92.3 Personal history of irradiation; C34.12 Malignant neoplasm of upper lobe, left bronchus or lung; C34.01 Malignant neoplasm of right main bronchus; Z95.828 Presence of other vascular implants and grafts | CPT/HCPCS: 96523 ==

== ENCOUNTER 2023-07-24 22:33 | Inpatient (IN) | payer OTHER, SELFPAY ==
[2023-07-24 22:33] VITALS: BP 144/70; PULSE 106; RESP 18; TEMP 37.7; O2SAT 92; BMI 23.6
--- NOTE | 2023-07-24 22:41 | ED_ITS ---
HPI - SOB/Dyspnea 2 General: Chief Complaint: Shortness of Breath/Dyspnea Stated Complaint: SOB Time Seen by Provider: 07/24/23 22:41 History of Present Illness: HPI Narrative: 67-year-old male with a history of lung cancer COPD and respiratory failure chronically. He presents with worsening shortness of breath over the course of the day. He noted that he had a 104 fever at home as well. He had a cough with minimal clear white sputum production. He called an ambulance when he was struggling to his breathing despite oxygen at home and a breathing treatment. He is improved now after breathing treatment by EMS. His temperature is improved to some degree as well. He is still short of breath. No significant chest pain. No leg swelling. Associated symptoms: Reports fever(s); Deny abdominal pain, chest pain, palpitations or vomiting Review of Systems 2 Const: Reports: fever(s) and chills ENMT: Denies: throat pain Card: Denies: chest pain or palpitations Resp: Reports: dyspnea and productive cough GI: Denies: abdominal pain or vomiting PFSH ED 2 PFSH: Medical History Hepatocellular carcinoma Pulmonary embolism Chronic anxiety PTSD (post-traumatic stress disorder) Dyslipidemia Coronary artery disease History of nonmelanoma skin cancer Lung cancer metastatic to brain COPD (chronic obstructive pulmonary disease) HTN (hypertension) Arthritis Allergies Aortic aneurysm History of hepatitis C Surgical History History of cataract extraction Right eye, 2021 H/O colonoscopy 3 yrs ago H/O aortic aneurysm repair H/O circumcision S/P lobectomy of lung H/O hernia repair Family History Father Cancer Family/Other CAD (coronary artery disease) Cancer Grandfather Cancer Mother Brain aneurysm Denies family history of Anesthesia complication Bleeding disorder Social History Smoking and tobacco/nicotine status: tobacco/nicotine user, details unknown (0.5 ppd, smoked x 50 years) smokeless tobacco Smokeless tobacco user: chewing tobacco Smokeless tobacco details: started one month prior/smoked 60 years and quit just before 2022 Quit status (tobacco/nicotine): considering quitting Alcohol intake: current Alcohol intake frequency: 0-2 Drinks per Day Alcohol type: beer Substance/Drug Use: never Lives independently: Yes Household members: spouse Marital status: service: Yes Current occupational status: disabled Do you think of yourself as: Straight/Heterosexual Current gender identity: Male Physical Exam 2 Const: GENERAL APPEARANCE: cooperative and ill appearing HENMT: COMMON NORMALS: normocephalic, atraumatic and Normal external nose present HEAD & SCALP: normocephalic and atraumatic FACE & SINUS: normal facial exam and face symmetric NOSE: Normal external nose present Eye: COMMON NORMALS: Equal, round and reactive pupils present and EOMs intact bilaterally PUPIL: Yes Equal, round and reactive pupils present Neck/C-Spine: GENERAL: Yes trachea midline Chest: CHEST: Yes Symmetrical chest wall rise Resp: EFFORT & INSPECTION: Yes symmetric chest movement, Yes tachypneic and Yes labored AUSCULTATION: rhonchi and wheezes Cardio: COMMON NORMALS: regular rhythm RATE: tachycardic RHYTHM: regular rhythm GI: COMMON NORMALS: Normal to inspection, nondistended, normoactive bowel sounds present Extremity: COMMON NORMALS: no pedal edema Neuro: ESTRADA COMA SCALE: document GCS findings Estrada coma scale eye opening: Spontaneous Estrada coma scale verbal response: Orientated [place] coma scale motor response: Obey commands [place] coma scale total score: 15 S ENSORY EXAM: Yes extremities (intact) Psych: COMMON NORMALS: speech normal SPEECH: Yes normal speech Course 2 Vital Signs: Vital signs: Vital Signs Temperature 99.8 F H 07/24/23 22:33 Pulse Rate 104 H 07/24/23 23:15 Respiratory Rate 16 07/24/23 23:08 Blood Pressure 113/60 07/24/23 23:08 Pulse Oximetry 93 07/24/23 23:08 Oxygen Delivery Me thod Nasal Cannula 07/24/23 22:59 Oxygen Flow Rate 6 07/24/23 22:59 MDM - SOB/Dyspnea Medical Decision Making Blood gas, which was done on room air shows significant hypoxia. He is satting 93 to 94% on his h 6 L currently. At times, he had not been wearing his oxygen at home as he felt he did not need it. His x-ray is stable from prior. White blood cell count is 13. Platelet count 129. Other laboratory not terribly remarkable. Lactic acid is 0.8. Respiratory panel is negative. BNP is only 920. PE is considered in the differential, but the patient is already on apixaban, so this is unlikely. Patient continues to be hypoxic, have increased heart rate, marginal saturations on 6 L, and was once mildly hypotensive in the 90s systolic. He is receiving IV Levaquin after blood cultures. He will be admitted. Hospitalist agrees. Lab Data 07/24/23 23:06 07/24/23 23:06 Labs/Radiology: Radiology Impressions Chest X-Ray 07/24/23 22:52 IMPRESSION: Hyperinflated lungs with stable left basilar reticular opacities and stable masslike enlargement of the right hilus. No acute superimposed abnormality. Laboratory Results WBC 12.86 10^3/uL (3.29-11.43) H 07/24/23 23:06 RBC 3.95 10^6/uL (3.85-5.65) 07/24/23 23:06 Hgb 11.40 g/dL (11.27-16.99) 07/24/23 23:06 Hct 36.1 % (37-53) L 07/24/23 23:06 MCV 91.4 fl (82-101) 07/24/23 23:06 MCH 28.9 pg (27-33) 07/24/23 23:06 MCHC 31.6 g/dL (30-55) 07/24/23 23:06 RDW 14.1 % (12.1-15.1) 07/24/23 23:06 Plt Count 129 10^3/cmm (157-399) L 07/24/23 23:06 MPV 11.0 fL (7.4-10.4) H 07/24/23 23:06 Neut % (Auto) 90.8 % 07/24/23 23:06 Lymph % (Auto) 4.9 % 07/24/23 23:06 [place] % (Auto) 3.8 % 07/24/23 23:06 Eos % (Auto) 0.0 % 07/24/23 23:06 Baso % (Auto) 0.2 % 07/24/23 23:06 Neut # (Auto) 11.68 10^3/uL (1.8-7.7) H 07/24/23 23:06 Lymph # (Auto) 0.6 10^3/uL (0.8-4.8) L 07/24/23 23:06 [place] # (Auto) 0.5 10^3/uL (0.2-0.9) 07/24/23 23:06 Eos # (Auto) 0.0 10^3/uL (0.0-0.8) 07/24/23 23:06 Baso # (Auto) 0.0 10^3/uL (0.0-0.1) 07/24/23 23:06 Nucleated RBC % (auto) 0 % 07/24/23 23:06 Nucleated RBCs # 0.0 /100WBC 07/24/23 23:06 Specimen Type Arterial 07/24/23 23:01 Sample Site Radial, right 07/24/23 23:01 ABG pH 7.45 (7.35-7.45) 07/24/23 23:01 ABG pCO2 37.6 mmHg (35-45) 07/24/23 23:01 ABG pO2 42.3 mmHg (80.0-100.0) L 07/24/23 23:01 ABG PO2/FiO2 Ratio 0 07/24/23 23:01 ABG HCO3 26.0 mmol/L (22-26) 07/24/23 23:01 ABG Base Excess 2.0 mmol/L (-2.0-2.0) 07/24/23 23:01 [place] Test Pos 07/24/23 23:01 Hematocrit 36.6 % (42-52) L 07/24/23 23:01 Hgb O2 Saturation 74.0 % (95-100) L 07/24/23 23:01 Carboxyhemoglobin 1.7 %THgb (0.4-20.1) 07/24/23 23:01 Methemoglobin 0.7 % (0.4-1.5) 07/24/23 23:01 Total Hemoglobin 11.9 g/dL (14-18) L 07/24/23 23:01 O2 Delivery Device Nc 07/24/23 23:01 FiO2 44.0 % 07/24/23 23:01 Extrusion Die Repair Manager ID Ed 07/24/23 23:01 Sodium 135 mmol/L (136-145) L 07/24/23 23:06 Potassium 4.4 mmol/L (3.5-5.1) 07/24/23 23:06 Chloride 100 mmol/L (98-107) 07/24/23 23:06 Carbon Dioxide 23 mmol/L (22-29) 07/24/23 23:06 Anion Gap 16.4 (5-19) 07/24/23 23:06 BUN 14 mg/dL (8-23) 07/24/23 23:06 Creatinine 1.0 mg/dL (0.7-1.2) 07/24/23 23:06 GFR Calculation 74.1 mL/min (90-130) L 07/24/23 23:06 Glucose 131 mg/dL (65-115) H 07/24/23 23:06 Calculated Osmolality 282 mOsm/kg (285-295) L 07/24/23 23:06 Lactic Acid 0.8 mmol/L (0.5-2.2) 07/24/23 23:06 Calcium 8.9 mg/dL (8.5-10.5) 07/24/23 23:06 Total Bilirubin 0.7 mg/dL (0.15-1.2) 07/24/23 23:06 AST 22 U/L (0-40) 07/24/23 23:06 ALT 10 U/L (0-41) 07/24/23 23:06 Alkaline Phosphatase 73 U/L (40-130) 07/24/23 23:06 Troponin T Baseline 8 ng/L (0-15) 07/24/23 23:06 Troponin T 120 Minute 8.25 ng/L (0-15) 07/25/23 01:00 Delta Troponin T 0.25 ABS# (0-10) 07/25/23 01:00 NT-Pro-B Natriuret Pep 920 pg/mL (0-125) H 07/24/23 23:06 Total Protein 7.8 g/dL (6.6-8.7) 07/24/23 23:06 Albumin 4.0 g/dL (3.5-5.2) 07/24/23 23:06 Globulin 3.8 g/dL (1.3-4.6) 07/24/23 23:06 Adenovirus (PCR) Not detected (NOT DETECT) 07/24/23 23:06 C. pneumoniae DNA (PCR) Not detected (NOT DETECT) 07/24/23 23:06 Coronavirus 229E (PCR) Not detected (NOT DETECT) 07/24/23 23:06 Human Metapneumovir PCR Not detected (NOT DETECT) 07/24/23 23:06 Influenza A (H1) PCR Not detected (NOT DETECT) 07/24/23 23:06 Influ A (H1/09) PCR Not detected (NOT DETECT) 07/24/23 23:06 Influenza A (H3) PCR Not detected (NOT DETECT) 07/24/23 23:06 Influenza Type A (PCR) Not detected (NOT DETECT) 07/24/23 23:06 Influenza Type B (PCR) Not detected (NOT DETECT) 07/24/23 23:06 M. pneumoniae (PCR) Not detected (NOT DETECT) 07/24/23 23:06 Parainfluenza 1 (PCR) Not detected (NOT DETECT) 07/24/23 23:06 Parainfluenza 2 (PCR) Not detected (NOT DETECT) 07/24/23 23:06 Parainfluenza 3 (PCR) Not detected (NOT DETECT) 07/24/23 23:06 Parainfluenza 4 (PCR) Not detected (NOT DETECT) 07/24/23 23:06 RSV Type A (PCR) Not detected (NOT DETECT) 07/24/23 23:06 RSV Type B (PCR) Not detected (NOT DETECT) 07/24/23 23:06 Entero/Rhino (PCR) Not detected (NOT DETECT) 07/24/23 23:06 SARS-CoV-2 (PCR) Not detected (NOT DETECT) 07/24/23 23:06 All radiology interpretation(s) finalized by discharge Discharge Plan Discharge Patient Disposition: Admitted As Inpatient Clinical Impression: Acute hypoxic respiratory failure, Malignant neoplasm of right main bronchus, Acute exacerbation of chronic obstructive pulmonary disease Condition: Fair Prescriptions: No Action Stiolto Respimat 2.5-2.5 mcg/actuation mist 2 puff INHALATION DAILY Qty: 4 3RF tamsulosin 0.4 mg capsule 0.4 mg PO DAILY guaifenesin 400 mg tablet 400 mg PO BID PRN (Reason: unknown) cetirizine [Zyrtec] 10 mg tablet 10 mg PO DAILY diphenhydramine HCl [Benadryl Allergy] 25 mg tablet 25 mg PO BID PRN (Reason: unknown) gabapentin 300 mg capsule 300 mg PO TID fluticasone propionate [Flonase Allergy Relief] 50 mcg/actuation spray,suspension 1 spray INTRANASAL BID PRN (Reason: Nasal Congestion) Rx Instructions: administer into each nostril doxycycline hyclate 100 mg capsule PO Asmanex Twisthaler 110 mcg/ actuation (30) aerosol powdr breath activated 2 inh INHALATION DAILY 90 Days Qty: 3 3RF Rx Instructions: administer 1 hour before bedtime naloxone [Narcan] 4 mg/actuation spray,non-aerosol 1 spray intranasal .Q2-3M PRN (Reason: opioid overdose) Qty: 2 0RF Rx Instructions: spray 1 dose into ONE nostril; alternate nostrils w each dose until help arrives Tagrisso 40 mg tablet 80 mg PO DAILY Qty: 56 2RF Hold Instructions: Resume on 02/01/23. oxycodone 10 mg tablet See Rx Instructions PO QID PRN (Reason: pain) 30 Days Qty: 150 0RF Rx Instructions: 1-2 tablets PO four times daily PRN; levofloxacin 750 mg tablet 750 mg PO DAILY 5 Days Qty: 5 0RF alprazolam 0.5 mg tablet 0.5 mg PO TID PRN (Reason: anxiety) Qty: 90 1RF albuterol sulfate 2.5 mg /3 mL (0.083 %) Solution For Nebulization 2.5 mg INHALATION Q6H PRN (Reason: Shortness Of Breath) albuterol sulfate [ProAir HFA] 90 mcg/actuation Hfa Aerosol Inhaler 2 puff INHALATION QID PRN (Reason: Shortness Of Breath) cholecalciferol (vitamin D3) [Vitamin D3] 50 mcg (2,000 unit) tablet 4,000 unit PO DAILY olodaterol 2.5 mcg/actuation Mist 2 inh INHALATION DAILY Eliquis 5 mg Tablet 10 mg PO BID@0900,2100 Qty: 180 0RF Rx Instructions: 10mg BID for 1 week then switch to 5mg BID linezolid 600 mg tablet 600 mg PO BID Qty: 10 0RF cefdinir 300 mg capsule 300 mg PO BID Qty: 14 0RF Referrals: Rico Winters DO [Primary Care Provider] - Coding Level of Care Code ED Delivery Room Supervisor for Chg Carrillo
[2023-07-24 22:42] VITALS: PULSE 104; RESP 18; O2SAT 93
--- NOTE | 2023-07-24 22:52 | XRR_ITS ---
PROCEDURE INFORMATION: Exam: XR Chest Exam date and time: 07/24/2023 10:55 PM Age: 67 years old Clinical indication: Shortness of breath; Prior surgery; Surgery date: 6+ months; Surgery type: Chest port. RT lung lobectomy; Patient HX: C/O SOB. History of lung cancer. TECHNIQUE: Imaging protocol: Radiologic exam of the chest. Views: 1 view. COMPARISON: CT angio chest PE protcl [id number] 01/23/2023 7:27 PM FINDINGS: Tubes, catheters and devices: Click port left right hilar masslike density is similar to prior manager sales support topogram from CT corresponding to right hilar masslike fibrotic change. Lungs: Clear hyperinflated right lung. Reticular opacities in volume loss at the left lung base are stable from priors. Lungs are hyperinflated. Pleural spaces: No pleural effusion. No pneumothorax. Heart/Mediastinum: Cardiac silhouette is normal in size for technique. Bones/joints: Age appropriate. XR/XR chest 1V portable [id number] IMPRESSION: Hyperinflated lungs with stable left basilar reticular opacities and stable masslike enlargement of the right hilus. No acute superimposed abnormality.
--- NOTE | 2023-07-24 22:53 | ECG_ITS ---
[facility] Test Date: 2023-07-24 Pat Name: Satish Fry Department: Room: Gender: Male Emissions Repair Technician: : 1955 Requested By: Davis Padilla Order Number: [id number] Jacquie MD: Devante Sy M.D. Measurements Intervals [place] Rate: 101 P: 35 LA: 157 QRS: 27 QRSD: 134 T: 57 QT: 355 QTc: 461 Interpretive Statements SINUS TACHYCARDIA RIGHT BUNDLE BRANCH BLOCK [120+ ms QRS DURATION, UPRIGHT V1, 40+ ms S IN I/aVL/V4/V5/V6] Compared to ECG 01/23/2023 17:41:53 Left anterior fascicular block no longer present Electronically Signed On 07-24-2023 23:54:48 CDT by Devante Sy M.D. [id number]
[2023-07-24] MEDS: ipratropium-albuterol 3 mL Neb INHALATION (22:58)
[2023-07-24 22:59] VITALS: PULSE 103; RESP 16; O2SAT 92
[2023-07-24 23:08] VITALS: BP 113/60; PULSE 103; RESP 16; O2SAT 93
[2023-07-24 23:11] LABS: ABG PCO2 37.6 mmHg (35-45); ABG PH Result 7.45 (7.35-7.45); Arterial Blood Gas Hematocrit 36.6 % (42-52); Blood Gas Allen Test Pos; Blood Gas Sample Type Arterial; Carboxyhemoglobin 1.7 %THgb (0.4-20.1); Methemoglobin 0.7 % (0.4-1.5); PO2 ABG 42.3 mmHg (80.0-100.0); Total Hemoglobin 11.9 g/dL (14-18)
[2023-07-24 23:12] LABS: Blood Gas Operator Identificat ED; Blood Gas Sample Site Radial, right; Oxygen Device NC; PO2 FiO2 Ratio Arterial Blood 0
[2023-07-24 23:15] VITALS: PULSE 104
[2023-07-24 23:18] LABS: Basophils % 0.2 %; Hematocrit 36.1 % (37-53); Lymphocytes # 0.6 10^3/uL (0.8-4.8); Lymphocytes % 4.9 %; Mean Corpuscular HGB Conc 31.6 g/dL (30-55); Mean Corpuscular Hemoglobin 28.9 pg (27-33); Mean Corpuscular Volume 91.4 fl (82-101); Monocytes # 0.5 10^3/uL (0.2-0.9); Monocytes % 3.8 %; Neutrophils # 11.68 10^3/uL (1.8-7.7); Neutrophils % 90.8 %; Nucleated Red Blood Cells % 0 %; Platelet Count 129 10^3/cmm (157-399); Red Blood Count 3.95 10^6/uL (3.85-5.65); Red Cell Distribution Width 14.1 % (12.1-15.1); White Blood Count 12.86 10^3/uL (3.29-11.43)
[2023-07-24 23:30] VITALS: BP 114/57; PULSE 113; RESP 14; O2SAT 91
[2023-07-24 23:31] LABS: Troponin(5th) Baseline 8 ng/L (0-15)
[2023-07-24 23:34] LABS: Lactic Sepsis W/Reflex 0.8 mmol/L (0.5-2.2)
[2023-07-24 23:36] LABS: Alanine Aminotransferase 10 U/L (0-41); Alkaline Phosphatase 73 U/L (40-130); Anion Gap 16.4 (5-19); Aspartate Amino Transferase 22 U/L (0-40); Blood Urea Nitrogen 14 mg/dL (8-23); Calcium 8.9 mg/dL (8.5-10.5); Carbon Dioxide 23 mmol/L (22-29); Chloride 100 mmol/L (98-107); Creatinine Clr Calc Pharmacy 68.2022; Globulin 3.8 g/dL (1.3-4.6); Glomerular Filtration Rate 74.1 mL/min (90-130); Glucose 131 mg/dL (65-115); Osmolality Calculated 282 mOsm/kg (285-295); Potassium 4.4 mmol/L (3.5-5.1); Sodium 135 mmol/L (136-145); Total Bilirubin 0.7 mg/dL (0.15-1.2); Total Protein 7.8 g/dL (6.6-8.7)
[2023-07-24 23:54] LABS: NT Pro B Type Natriuretic Pept 920 pg/mL (0-125)
[2023-07-25] VITALS (13 sets, daily range): BP systolic 91–118; BP diastolic 52–65; PULSE 80–114; RESP 15–19; TEMP 36.5–36.9; O2SAT 87–98; BMI 23.9
[2023-07-25] MEDS: methylPREDNISolone sod succ 125 mg/2 mL INJ IVP (00:55)
[2023-07-25 00:57] LABS: Adenovirus Not Detected (NOT DETECT); Chlamydia Pneumoniae Not Detected (NOT DETECT); Coronavirus 229E,HKU1,NL63,OC4 Not Detected (NOT DETECT); Human Metapneumovirus Not Detected (NOT DETECT); Human Rhinovirus/Enterovirus Not Detected (NOT DETECT); Influenza A Not Detected (NOT DETECT); Influenza A H1 Not Detected (NOT DETECT); Influenza A H1-2009 Not Detected (NOT DETECT); Influenza A H3 Not Detected (NOT DETECT); Influenza B Not Detected (NOT DETECT); Mycoplasma Pneumoniae Not Detected (NOT DETECT); Parainfluenza Virus Type 1 Not Detected (NOT DETECT); Parainfluenza Virus Type 2 Not Detected (NOT DETECT); Parainfluenza Virus Type 3 Not Detected (NOT DETECT); Parainfluenza Virus Type 4 Not Detected (NOT DETECT); Respiratory Syncytial Virus A Not Detected (NOT DETECT); Respiratory Syncytial Virus B Not Detected (NOT DETECT); SARS-COV-2 Not Detected (NOT DETECT)
--- NOTE | 2023-07-25 01:12 | ECG_ITS ---
[facility] Test Date: 2023-07-25 Pat Name: Satish Fry Department: Room: Gender: Male Media Aid: : 1955 Requested By: Davis Padilla Order Number: [id number] Jacquie MD: Devante Sy M.D. Measurements Intervals [place] Rate: 102 P: 102 NE: 204 QRS: -21 QRSD: 130 T: 52 QT: 362 QTc: 474 Interpretive Statements SINUS TACHYCARDIA BORDERLINE LEFT AXIS DEVIATION [QRS AXIS < -20] RIGHT BUNDLE BRANCH BLOCK [120+ ms QRS DURATION, UPRIGHT V1, 40+ ms S IN I/aVL/V4/V5/V6] Compared to ECG 07/24/2023 23:03:04 No significant changes Electronically Signed On 07-25-2023 8:31:34 CDT by Devante Sy M.D. [email or web address]
[2023-07-25 01:28] LABS: Add Urine Microscopic? NO; Charge for UA Resulting for Rev
[2023-07-25 01:32] LABS: Troponin 5 2HR 8.25 ng/L (0-15); Troponin 5 2HR Delta 0.25 ABS# (0-10)
[2023-07-25] MEDS: levofloxacin-dextrose 5 % 750 MG/150 ML PREMIX 100 MG IV (01:41)
[2023-07-25 01:44] LABS: Bilirubin Urine Neg (Negative); Blood Urine Neg (Negative); Glucose Urine UA Norm (Normal); Ketones Urine Negative (Negative); Leukocyte Esterase Urine Negative (Negative); Nitrate Urine Negative (Negative); Protein Urine Neg (Negative); Urine Appearance Clear (CLEAR); Urine Color Yellow (Yellow); Urobilinogen Urine Neg (Negative); pH Urine 5 (5-7)
--- NOTE | 2023-07-25 05:06 | ECG_ITS ---
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 Measurements Intervals [place] Rate: 91 P: 61 OR: 200 QRS: -31 QRSD: 138 T: 46 QT: 385 QTc: 474 Interpretive Statements SINUS RHYTHM LEFT AXIS DEVIATION [QRS AXIS < -30] RIGHT BUNDLE BRANCH BLOCK [120+ ms QRS DURATION, UPRIGHT V1, 40+ ms S IN I/aVL/V4/V5/V6] Compared to ECG 07/25/2023 01:12:58 Sinus tachycardia no longer present Electronically Signed On 07-25-2023 8:31:22 CDT by Devante Sy M.D. [id number]
--- NOTE | 2023-07-25 05:27 | P.HP_ITS ---
Providers/Chief Complaint 2 Admitting Physician: Rosaline Carlin MD Primary Care Provider: Rico Winters DO Chief Complaint: SOB History of Present Illness Satish Fry is a 67 year old male with a past medical history of squamous cell lung cancer currently on treatment with osimertinib, hepatocellular carcinoma status post chemoembolization of the left hepatic artery, now on expectant management , history of PE for which he is on Eliquis, COPD. He presents to the hospital today with chief complaints of fever up to 104 Fahrenheit at home, increased cough and sputum production. He has had increasing shortness of breath over the past 3 to 4 days and presented to the ER for the same. Denies any chest pain. Review of Systems 2 General: Reports: 10 or more systems reviewed and unremarkable except in HPI and below Const: Denies: fever(s), chills or body aches Eyes: Denies: change in vision, blurry vision or photophobia ENMT: Reports: hoarseness; Denies: throat pain, enlarged tonsils, odynophagia or nasal congestion Card: Denies: chest pain, palpitations, irregular heart rhythm, edema, swelling of feet/ankles, lightheadedness, pre-syncope, dyspnea on exertion or orthopnea Resp: Denies: dyspnea, productive cough, non-productive cough, wheezing, stridor, pain on inspiration, change in phlegm color, hemoptysis or chest congestion GI: Denies: abdominal pain, nausea, vomiting, hematemesis, coffee ground emesis, dysphagia, heartburn, diarrhea, constipation, GI cramping, change in stool character, hematochezia or melena : Denies: flank pain, dysuria, urinary frequency, urinary urgency, urinary hesitancy or hematuria Musc: Denies: neck pain, back pain, extremity pain, joint swelling, joint warmth or deformity Neuro: Denies: headache(s), numbness in extremities, weakness in extremities, sensory changes, difficulty walking, frequent falls, dizziness, vertigo, behavioral changes, Slurred speech present or seizure-like activity Psych: Denies: anxiety, depression, suicidal ideation or homicidal ideation Endo: Denies: polyuria, polydipsia, tired all the time, cold intolerance or hot flashes Ramiro/Lymph: Denies: easy bruising or easy bleeding Medications/Allergies Home Medications Medication Instructions Recorded Confirmed Last Taken Type cetirizine 10 mg tablet (Zyrtec) 10 mg PO DAILY 06/19/19 07/25/23 10/02/19 History guaifenesin 400 mg tablet 400 mg PO BID PRN unknown 06/19/19 07/25/23 10/02/19 History tamsulosin 0.4 mg capsule 0.4 mg PO DAILY 06/19/19 07/25/23 10/02/19 History albuterol sulfate 2.5 mg/3 mL 2.5 mg inhalation Q6H PRN 07/20/19 07/25/23 10/02/19 History (0.083 %) solution for nebulization Shortness Of Breath albuterol sulfate 90 mcg/actuation 2 puff inhalation QID PRN 07/20/19 07/25/23 10/02/19 History aerosol inhaler (ProAir HFA) Shortness Of Breath tiotropium 2.5 mcg-olodaterol 2.5 2 puff inhalation DAILY #4 grams 08/07/19 07/25/23 10/02/19 Rx mcg/actuation mist for inhalation (Stiolto Respimat) mometasone 110 mcg/actuation(30 2 inh inhalation DAILY 90 days #3 09/25/19 07/25/23 10/02/19 Rx doses) breath activated powder ea inhaler (Asmanex Twisthaler) cholecalciferol (vitamin D3) 50 4,000 unit PO DAILY 01/20/22 07/25/23 Unknown History mcg (2,000 unit) tablet (Vitamin D3) gabapentin 300 mg capsule 300 mg PO TID 01/20/22 07/25/23 Unknown History fluticasone propionate 50 1 spray intranasal BID PRN Nasal 05/20/22 07/25/23 Unknown History mcg/actuation nasal Congestion spray,suspension (Flonase Allergy Relief) naloxone 4 mg/actuation nasal 1 spray intranasal .Q2-3M PRN 07/01/22 07/25/23 Unknown Rx spray (Narcan) opioid overdose #2 ea olodaterol 2.5 mcg/actuation mist 2 inh inhalation DAILY 01/24/23 07/25/23 Unknown History for inhalation osimertinib 40 mg tablet (Tagrisso) 80 mg (2 x 40 mg) PO DAILY #56 tabs 05/16/23 07/25/23 Unknown Rx oxycodone 10 mg tablet See Rx Instructions PO QID PRN 06/30/23 07/25/23 Unknown Rx pain 30 days #150 tabs alprazolam 0.5 mg tablet 0.5 mg PO TID PRN anxiety #90 tabs 07/21/23 07/25/23 Unknown Rx apixaban 5 mg tablet (Eliquis) 5 mg PO BID@0900,2100 07/25/23 07/25/23 Unknown History Allergies Allergy/AdvReac Type Severity Reaction Status Date / Time Penicillins Allergy Severe ALGY-Rash Verified 05/12/23 13:28 Ifggwwm-TAZ-RpC Reductase Allergy Severe ALGY-Rash Verified 05/12/23 13:28 Inhibitor [Kdpyxde-Poz-Tey Reductase Inhibitor] cefdinir AdvReac rash Verified 05/12/23 13:28 PFSH Acute 2 PFSH: Medical History Hepatocellular carcinoma Pulmonary embolism Chronic anxiety PTSD (post-traumatic stress disorder) Dyslipidemia Coronary artery disease History of nonmelanoma skin cancer Lung cancer metastatic to brain COPD (chronic obstructive pulmonary disease) HTN (hypertension) Arthritis Allergies Aortic aneurysm History of hepatitis C Surgical History History of cataract extraction Right eye, 2021 H/O colonoscopy 3 yrs ago H/O aortic aneurysm repair H/O circumcision S/P lobectomy of lung H/O hernia repair Family History Father Cancer Family/Other CAD (coronary artery disease) Cancer Grandfather Cancer Mother Brain aneurysm Denies family history of Anesthesia complication Bleeding disorder Social History Smoking and tobacco/nicotine status: tobacco/nicotine user, details unknown (0.5 ppd, smoked x 50 years) smokeless tobacco Smokeless tobacco user: chewing tobacco Smokeless tobacco details: started one month prior/smoked 60 years and quit just before 2022 Quit status (tobacco/nicotine): considering quitting Alcohol intake: current Alcohol intake frequency: 0-2 Drinks per Day Alcohol type: beer Substance/Drug Use: never Lives independently: Yes Household members: spouse Marital status: service: Yes Current occupational status: disabled Do you think of yourself as: Straight/Heterosexual Current gender identity: Male Vitals/I&O/Wt Last Vital Signs Temp 98.5 F 07/25/23 04:57 Pulse 93 07/25/23 04:57 Resp 18 07/25/23 04:57 BP 103/57 07/25/23 04:57 Pulse Ox 96 07/25/23 04:57 O2 Del Method Nasal Cannula 07/25/23 04:57 O2 Flow Rate 6 07/24/23 22:59 07/24/23 07/24/23 07/25/23 14:59 22:59 06:59 Intake Total 150 / 150 Balance 150 / 150 Weight last 48 hrs Weight 71.384 kg Weight 71.486 kg Weight 70.307 kg Physical Exam 2 Narrative: General: No acute distress, AO x3 HEENT: PERRLA, pupils bilaterally equal and reactive, pallors not present Chest: Wheezing to auscultation bilaterally CVS: S1-S2 regular, no murmurs, no tachycardia, no gallops, no rubs Abdomen: Soft, nontender, no organomegaly, bowel sounds present Neuro: No focal deficits, no facial deformity, AO x3, power 5/5 in all limbs Data 07/24/23 23:06 07/24/23 23:06 Other Labs: Ordering Provider/Ordering MD: Davis Barrera DO Date of Service: 07/24/23 Procedure(s): XR chest 1V portable [id number] Accession Number(s): [id number] Report Number: [id number] PROCEDURE INFORMATION: Exam: XR Chest Exam date and time: 07/24/2023 10:55 PM Age: 67 years old Clinical indication: Shortness of breath; Prior surgery; Surgery date: 6+ months; Surgery type: Chest port. RT lung lobectomy; Patient HX: C/O SOB. History of lung cancer. TECHNIQUE: Imaging protocol: Radiologic exam of the chest. Views: 1 view. 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 Lungs: Clear hyperinflated right lung. Reticular opacities in volume loss at the left lung base are stable from priors. Lungs are hyperinflated. Pleural spaces: No pleural effusion. No pneumothorax. Heart/Mediastinum: Cardiac silhouette is normal in size for technique. Bones/joints: Age appropriate. XR/XR chest 1V portable [id number] IMPRESSION: Hyperinflated lungs with stable left basilar reticular opacities and stable masslike enlargement of the right hilus. No acute superimposed abnormality. Micro: Microbiology 07/25/23 00:00 Blood Culture - Preliminary Blood SPECIMEN COLLECTED 07/25/23 00:00 Blood Culture - Preliminary Blood SPECIMEN COLLECTED A&P Assessment and plan (1) Community acquired pneumonia: (2) Acute exacerbation of chronic obstructive pulmonary disease: (3) Chronic hypoxic respiratory failure: Plan 67-year-old male with past medical history as above presenting to the hospital with fever, worsening dyspnea cough and sputum production with noted infiltrates on chest x-ray. Respiratory viral panel negative Chest x-ray showing hyperinflated lungs with left basilar reticular opacities Start ceftriaxone 1 g IV every 24 hours and azithromycin 500 mg p.o. daily. Review of records shows that patient has previously received ceftriaxone in January 2023. Chart notes allergy to penicillin and cefdini which is listed as a rash.. Will closely monitor for development of any rashes. Sputum culture and Gram stain MRSA nasal screen Blood culture taken and pending Low suspicion for PE given patient is chronically on Eliquis Also picture concerning for COPD exacerbation Methylprednisolone IV every 8 hours DuoNeb nebulization every 6 hours, budesonide 0.5 mg twice daily. Continue home dose of oxycodone for pain management Continue gabapentin DVT prophylaxis: Ordered Eliquis PUD ppx: protonix 40mg po daily Full code Attestations 2 Medical Necessity Statement*: Greater than 2 midnight stay is anticipated Diagnoses Community acquired pneumonia J18.9 Acute exacerbation of chronic obstructive pulmonary disease J44.1 Chronic hypoxic respiratory failure J96.11
[2023-07-25 05:53] LABS: Troponin 5 6HR 9.16 ng/L (0-15); Troponin 5 6HR Delta 1.16 ng/L (0-12)
[2023-07-25] MEDS: cefTRIAXone 1,000 MG in sodium chloride 0.9% (plus) 50 ML 100 MG IV (06:25)
[2023-07-25] MEDS: methylPREDNISolone sod succ 40 mg/mL INJ IVP (06:25)
[2023-07-25] MEDS: oxyCODONE 5 mg IR Tab/Cap PO (06:43)
[2023-07-25] MEDS: ipratropium-albuterol 3 mL Neb INHALATION (08:46)
[2023-07-25] MEDS: budesonide 0.5 mg/2 mL Neb INHALATION (08:46)
[2023-07-25] MEDS: gabapentin 300 mg Capsule PO (10:38)
[2023-07-25] MEDS: tamsulosin 0.4 mg Capsule 0.400000000000000022 MG PO (10:38)
[2023-07-25] MEDS: azithromycin 250 mg Tablet 500 MG PO (10:38)
[2023-07-25] MEDS: pantoprazole DR 40 mg Tablet PO (10:38)
[2023-07-25] MEDS: apixaban 5 mg Tablet PO (10:39)
--- NOTE | 2023-07-25 12:13 | P.DS_ITS ---
Discharge Providers Date of Admission: 07/25/23 02:35 Date of Discharge: July 25, 2023 Attending Provider at Admission: Rosaline Carlin MD Attending Provider at Discharge: Dania Sorto MD Primary Care Provider: Rico Winters DO Diagnoses at Discharge Discharge Diagnosis (1) Community acquired pneumonia: Status: Acute (2) Acute exacerbation of chronic obstructive pulmonary disease: Status: Acute (3) Chronic hypoxic respiratory failure: Status: Acute Reason for Visit Reason for Visit: SOB Hospital Course Hospital Course 67-year-old male with history of skin cell lung cancer, currently on treatment, also has mets to liver status post chemo embolization of left hepatic artery now on expectant management, history of PE, takes Eliquis, underlying COPD uses 3 L of oxygen at baseline admitted to the hospital for worsening shortness of breath he was requiring 6 L, we were able to wean his oxygen down to his baseline requirement, he is afebrile, no active wheezing, wanting to go home. At the time of discharge I will give him Medrol pack, levofloxacin I have advised patient to keep using his nebulizer and inhalers. Patient thinks he is back to his baseline, does not want to stay in the hospital any longer. Most of the sputum and MRSA nasal screen results are pending. Blood culture pending. Patient is already on Eliquis low suspicion for PE. Physical Exam Narrative: Pleasant cough Nocturnal focal deficit No active wheezing GCS 15 S1, S2 Currently on 2 L nasal cannula Awake and alert Euvolemic Discharge Data Studies Completed and Pending Completed Studies During Hospitalization Category Date Time Status XR chest 1V portable [id number] Stat Exams 07/24/23 22:52 Completed Pending at discharge Category Date Time Status Blood Culture Stat Lab 07/24/23 22:52 Results CMP [Comprehensive Metabolic Panel] AM LABS Lab 07/26/23 04:00 Ordered Complete Blood Count w/Auto AM LABS Lab 07/26/23 04:00 Ordered MRSA [Methicillin Resistant S.aureu] Routine Lab 07/25/23 06:44 Received Sputum Culture and Gram Stain Routine Lab 07/25/23 08:55 Received Radiology Impressions Chest X-Ray 07/24/23 22:52 IMPRESSION: Hyperinflated lungs with stable left basilar reticular opacities and stable masslike enlargement of the right hilus. No acute superimposed abnormality. Laboratory Results WBC 12.86 10^3/uL (3.29-11.43) H 07/24/23 23:06 RBC 3.95 10^6/uL (3.85-5.65) 07/24/23 23:06 Hgb 11.40 g/dL (11.27-16.99) 07/24/23 23:06 Hct 36.1 % (37-53) L 07/24/23 23:06 MCV 91.4 fl (82-101) 07/24/23 23:06 MCH 28.9 pg (27-33) 07/24/23 23:06 MCHC 31.6 g/dL (30-55) 07/24/23 23:06 RDW 14.1 % (12.1-15.1) 07/24/23 23:06 Plt Count 129 10^3/cmm (157-399) L 07/24/23 23:06 MPV 11.0 fL (7.4-10.4) H 07/24/23 23:06 Neut % (Auto) 90.8 % 07/24/23 23:06 Lymph % (Auto) 4.9 % 07/24/23 23:06 Jennings % (Auto) 3.8 % 07/24/23 23:06 Eos % (Auto) 0.0 % 07/24/23 23:06 Baso % (Auto) 0.2 % 07/24/23 23:06 Neut # (Auto) 11.68 10^3/uL (1.8-7.7) H 07/24/23 23:06 Lymph # (Auto) 0.6 10^3/uL (0.8-4.8) L 07/24/23 23:06 Jennings # (Auto) 0.5 10^3/uL (0.2-0.9) 07/24/23 23:06 Eos # (Auto) 0.0 10^3/uL (0.0-0.8) 07/24/23 23:06 Baso # (Auto) 0.0 10^3/uL (0.0-0.1) 07/24/23 23:06 Nucleated RBC % (auto) 0 % 07/24/23 23:06 Nucleated RBCs # 0.0 /100WBC 07/24/23 23:06 Specimen Type Arterial 07/24/23 23:01 Sample Site Radial, right 07/24/23 23:01 ABG pH 7.45 (7.35-7.45) 07/24/23 23:01 ABG pCO2 37.6 mmHg (35-45) 07/24/23 23:01 ABG pO2 42.3 mmHg (80.0-100.0) L 07/24/23 23:01 ABG PO2/FiO2 Ratio 0 07/24/23 23:01 ABG HCO3 26.0 mmol/L (22-26) 07/24/23 23:01 ABG Base Excess 2.0 mmol/L (-2.0-2.0) 07/24/23 23:01 Usama Test Pos 07/24/23 23:01 Hematocrit 36.6 % (42-52) L 07/24/23 23:01 Hgb O2 Saturation 74.0 % (95-100) L 07/24/23 23:01 Carboxyhemoglobin 1.7 %THgb (0.4-20.1) 07/24/23 23:01 Methemoglobin 0.7 % (0.4-1.5) 07/24/23 23:01 Total Hemoglobin 11.9 g/dL (14-18) L 07/24/23 23:01 O2 Delivery Device Nc 07/24/23 23:01 FiO2 44.0 % 07/24/23 23:01 Electronic Controls Repairer Supervisor ID Ed 07/24/23 23:01 Sodium 135 mmol/L (136-145) L 07/24/23 23:06 Potassium 4.4 mmol/L (3.5-5.1) 07/24/23 23:06 Chloride 100 mmol/L (98-107) 07/24/23 23:06 Carbon Dioxide 23 mmol/L (22-29) 07/24/23 23:06 Anion Gap 16.4 (5-19) 07/24/23 23:06 BUN 14 mg/dL (8-23) 07/24/23 23:06 Creatinine 1.0 mg/dL (0.7-1.2) 07/24/23 23:06 GFR Calculation 74.1 mL/min (90-130) L 07/24/23 23:06 Glucose 131 mg/dL (65-115) H 07/24/23 23:06 Calculated Osmolality 282 mOsm/kg (285-295) L 07/24/23 23:06 Lactic Acid 0.8 mmol/L (0.5-2.2) 07/24/23 23:06 Calcium 8.9 mg/dL (8.5-10.5) 07/24/23 23:06 Total Bilirubin 0.7 mg/dL (0.15-1.2) 07/24/23 23:06 AST 22 U/L (0-40) 07/24/23 23:06 ALT 10 U/L (0-41) 07/24/23 23:06 Alkaline Phosphatase 73 U/L (40-130) 07/24/23 23:06 Troponin T Baseline 8 ng/L (0-15) 07/24/23 23:06 Troponin T 120 Minute 8.25 ng/L (0-15) 07/25/23 01:00 Delta Troponin T 0.25 ABS# (0-10) 07/25/23 01:00 Troponin T Hi Sens 6Hr 9.16 ng/L (0-15) 07/25/23 05:13 Troponin T Hi Sens 6Hr Delta 1.16 ng/L (0-12) 07/25/23 05:13 NT-Pro-B Natriuret Pep 920 pg/mL (0-125) H 07/24/23 23:06 Total Protein 7.8 g/dL (6.6-8.7) 07/24/23 23:06 Albumin 4.0 g/dL (3.5-5.2) 07/24/23 23:06 Globulin 3.8 g/dL (1.3-4.6) 07/24/23 23:06 Urine Color Yellow (Yellow) 07/25/23 01:25 Urine Appearance Clear (CLEAR) 07/25/23 01:25 Urine pH 5 (5-7) 07/25/23 01:25 Ur Specific [place] 1.010 (1.005-1.030) 07/25/23 01:25 Urine Protein Neg (Negative) 07/25/23 01:25 Urine Glucose (UA) Norm (Normal) 07/25/23 01:25 Urine Ketones Negative (Negative) 07/25/23 01:25 Urine Blood Neg (Negative) 07/25/23 01:25 Urine Nitrate Negative (Negative) 07/25/23 01:25 Urine Bilirubin Neg (Negative) 07/25/23 01:25 Urine Urobilinogen Neg mg/dL (Negative) 07/25/23 01:25 Ur Leukocyte Esterase Negative (Negative) 07/25/23 01:25 Adenovirus (PCR) Not detected (NOT DETECT) 07/24/23 23:06 C. pneumoniae DNA (PCR) Not detected (NOT DETECT) 07/24/23 23:06 Coronavirus 229E (PCR) Not detected (NOT DETECT) 07/24/23 23:06 Human Metapneumovir PCR Not detected (NOT DETECT) 07/24/23 23:06 Influenza A (H1) PCR Not detected (NOT DETECT) 07/24/23 23:06 Influ A (H1/09) PCR Not detected (NOT DETECT) 07/24/23 23:06 Influenza A (H3) PCR Not detected (NOT DETECT) 07/24/23 23:06 Influenza Type A (PCR) Not detected (NOT DETECT) 07/24/23 23:06 Influenza Type B (PCR) Not detected (NOT DETECT) 07/24/23 23:06 M. pneumoniae (PCR) Not detected (NOT DETECT) 07/24/23 23:06 Parainfluenza 1 (PCR) Not detected (NOT DETECT) 07/24/23 23:06 Parainfluenza 2 (PCR) Not detected (NOT DETECT) 07/24/23 23:06 Parainfluenza 3 (PCR) Not detected (NOT DETECT) 07/24/23 23:06 Parainfluenza 4 (PCR) Not detected (NOT DETECT) 07/24/23 23:06 RSV Type A (PCR) Not detected (NOT DETECT) 07/24/23 23:06 RSV Type B (PCR) Not detected (NOT DETECT) 07/24/23 23:06 Entero/Rhino (PCR) Not detected (NOT DETECT) 07/24/23 23:06 SARS-CoV-2 (PCR) Not detected (NOT DETECT) 07/24/23 23:06 Vitals Last Vital Signs Temp 97.7 F 07/25/23 11:37 Pulse 106 H 07/25/23 11:37 Resp 18 07/25/23 11:37 BP 101/52 07/25/23 11:37 Pulse Ox 87 L 07/25/23 11:56 O2 Del Method Nasal Cannula 07/25/23 11:37 O2 Flow Rate 3 07/25/23 11:56 Discharge Plan Discharge Patient Disposition: Home Condition: Stable Prescriptions: New azithromycin 250 mg Tablet 500 mg PO DAILY Qty: 10 0RF methylprednisolone [Medrol (Nick)] 4 mg tablets,dose pack See Rx Instructions .ROUTE .COMPLEX Qty: 21 0RF Rx Instructions: orally per package directions Continued Stiolto Respimat 2.5-2.5 mcg/actuation mist 2 puff INHALATION DAILY Qty: 4 3RF tamsulosin 0.4 mg capsule 0.4 mg PO DAILY guaifenesin 400 mg tablet 400 mg PO BID PRN (Reason: unknown) cetirizine [Zyrtec] 10 mg tablet 10 mg PO DAILY gabapentin 300 mg capsule 300 mg PO TID fluticasone propionate [Flonase Allergy Relief] 50 mcg/actuation spray,suspension 1 spray INTRANASAL BID PRN (Reason: Nasal Congestion) Rx Instructions: administer into each nostril Asmanex Twisthaler 110 mcg/ actuation (30) aerosol powdr breath activated 2 inh INHALATION DAILY 90 Days Qty: 3 3RF Rx Instructions: administer 1 hour before bedtime naloxone [Narcan] 4 mg/actuation spray,non-aerosol 1 spray intranasal .Q2-3M PRN (Reason: opioid overdose) Qty: 2 0RF Rx Instructions: spray 1 dose into ONE nostril; alternate nostrils w each dose until help arrives Tagrisso 40 mg tablet 80 mg PO DAILY Qty: 56 2RF Hold Instructions: Resume on 02/01/23. oxycodone 10 mg tablet See Rx Instructions PO QID PRN (Reason: pain) 30 Days Qty: 150 0RF Rx Instructions: 1-2 tablets PO four times daily PRN; alprazolam 0.5 mg tablet 0.5 mg PO TID PRN (Reason: anxiety) Qty: 90 1RF albuterol sulfate 2.5 mg /3 mL (0.083 %) Solution For Nebulization 2.5 mg INHALATION Q6H PRN (Reason: Shortness Of Breath) albuterol sulfate [ProAir HFA] 90 mcg/actuation Hfa Aerosol Inhaler 2 puff INHALATION QID PRN (Reason: Shortness Of Breath) cholecalciferol (vitamin D3) [Vitamin D3] 50 mcg (2,000 unit) tablet 4,000 unit PO DAILY olodaterol 2.5 mcg/actuation Mist 2 inh INHALATION DAILY Eliquis 5 mg tablet 5 mg PO BID@0900,2100 Rx Instructions: 10mg BID for 1 week then switch to 5mg BID Discharge Orders: Discharge Order (Routine); Ordered 07/25/23 Ordered By: Dania Sorto Referrals: Rico Winters, [Primary Care Provider] - Discharge Diet: Cardiac Discharge Activity: Increase activity as tolerated Patient Instructions: Opioid Safety Discharge Attestations Time Spent in Discharge Care*: less than 30 min Quality Metrics Clinical Quality Measures [ No reported AMI, CVA or VTE this stay] Coding Level of Care Code Acute Code for Chg Fwd Diagnoses Community acquired pneumonia J18.9 Acute exacerbation of chronic obstructive pulmonary disease J44.1 Chronic hypoxic respiratory failure J96.11
[2023-07-26 14:45] LABS: Methicillin-Resist S.aureu PCR DETECTED (NOT DETECTED)
== END 2023-07-25 12:30 | disposition home or self-care (01) | DRG 190 ==
LOC: ER 07-25 01:41 → MEDSURG 07-25 02:35
PROVIDERS: Admitting Provider Student in an Organized Health Care Education/Training Program; Emergency Provider Emergency Medicine; PCP Emergency Medicine Emergency Medical Services; Visit Provider Internal Medicine
DX: J44.0 Chronic obstructive pulmonary disease with (acute) lower respiratory infection (principal); J18.9 Pneumonia, unspecified organism; J96.11 Chronic respiratory failure with hypoxia; C34.91 Malignant neoplasm of unspecified part of right bronchus or lung; C78.7 Secondary malignant neoplasm of liver and intrahepatic bile duct; J44.1 Chronic obstructive pulmonary disease with (acute) exacerbation; Z85.118 Personal history of other malignant neoplasm of bronchus and lung; Z79.01 Long term (current) use of anticoagulants; Z99.81 Dependence on supplemental oxygen; F17.210 Nicotine dependence, cigarettes, uncomplicated; Z86.711 Personal history of pulmonary embolism
CPT/HCPCS: 36415; 36600; 71045; 80053; 81003; 82805; 83605; 83880; 84484; 85025; 87040; 87070; 87205; 87486; 87581; 87633; 87641; 93005; 94640; 94760; 96365; 96375; 99285; J0696; J1956; J2919; J7626; Q0144

== ENCOUNTER 2023-07-27 14:21 | Oncology outpatient (recurring) (ONCR) | payer OTHER, MEDICARE, SELFPAY | END 2023-08-07 23:59 | disposition home or self-care (01) | PROVIDERS: PCP Emergency Medicine Emergency Medical Services; Visit Provider Internal Medicine Medical Oncology | DX: Z79.899 Other long term (current) drug therapy; Z92.21 Personal history of antineoplastic chemotherapy; Z92.3 Personal history of irradiation; C34.12 Malignant neoplasm of upper lobe, left bronchus or lung; C34.01 Malignant neoplasm of right main bronchus; Z95.828 Presence of other vascular implants and grafts; Z53.9 Procedure and treatment not carried out, unspecified reason; C22.0 Liver cell carcinoma | CPT/HCPCS: 36591; 99214 ==

== ENCOUNTER 2023-08-16 11:14 | Oncology outpatient (recurring) (ONCR) | payer OTHER, SELFPAY | END 2023-09-07 23:59 | disposition home or self-care (01) | LOC: ONCMED 11:15 | PROVIDERS: PCP Emergency Medicine Emergency Medical Services; Visit Provider Internal Medicine Medical Oncology | DX: Z45.2 Encounter for adjustment and management of vascular access device (principal); C78.02 Secondary malignant neoplasm of left lung; C79.31 Secondary malignant neoplasm of brain; C78.7 Secondary malignant neoplasm of liver and intrahepatic bile duct; F17.210 Nicotine dependence, cigarettes, uncomplicated; Z79.899 Other long term (current) drug therapy; Z92.21 Personal history of antineoplastic chemotherapy; Z92.3 Personal history of irradiation; C34.12 Malignant neoplasm of upper lobe, left bronchus or lung; C34.01 Malignant neoplasm of right main bronchus; Z95.828 Presence of other vascular implants and grafts; Z53.9 Procedure and treatment not carried out, unspecified reason | CPT/HCPCS: 96523 ==

== ENCOUNTER 2023-09-29 10:40 | Oncology outpatient (recurring) (ONCR) | payer OTHER, SELFPAY | END 2023-10-08 23:55 | disposition home or self-care (01) | LOC: ONCMED 10:40 | PROVIDERS: PCP Emergency Medicine Emergency Medical Services; Visit Provider Internal Medicine Medical Oncology | DX: Z45.2 Encounter for adjustment and management of vascular access device (principal) | CPT/HCPCS: 96523 ==

== ENCOUNTER 2023-11-01 10:52 | Oncology outpatient (recurring) (ONCR) | payer OTHER, SELFPAY ==
[2023-11-01 11:20] LABS: Basophils % 0.4 %; Eosinophils # 0.2 10^3/uL (0.0-0.8); Eosinophils % 4.4 %; Hematocrit 36.6 % (37-53); Lymphocytes % 18.8 %; Mean Corpuscular HGB Conc 31.7 g/dL (30-55); Mean Corpuscular Hemoglobin 29.6 pg (27-33); Mean Corpuscular Volume 93.4 fl (82-101); Mean Platelet Volume 10.3 fL (7.4-10.4); Monocytes # 0.5 10^3/uL (0.2-0.9); Monocytes % 9.7 %; Neutrophils # 3.64 10^3/uL (1.8-7.7); Neutrophils % 66.5 %; Nucleated Red Blood Cells % 0 %; Platelet Count 133 10^3/cmm (157-399); Red Blood Count 3.92 10^6/uL (3.85-5.65); Red Cell Distribution Width 14.2 % (12.1-15.1); White Blood Count 5.47 10^3/uL (3.29-11.43)
[2023-11-01 11:38] LABS: Alanine Aminotransferase 10 U/L (0-41); Albumin Level 3.9 g/dL (3.5-5.2); Alkaline Phosphatase 61 U/L (40-130); Anion Gap 13.5 (5-19); Aspartate Amino Transferase 23 U/L (0-40); Blood Urea Nitrogen 20 mg/dL (8-23); Calcium 8.8 mg/dL (8.5-10.5); Carbon Dioxide 25 mmol/L (22-29); Chloride 104 mmol/L (98-107); Globulin 3.6 g/dL (1.3-4.6); Glomerular Filtration Rate 59.9 mL/min (90-130); Glucose 91 mg/dL (65-115); Osmolality Calculated 288 mOsm/kg (285-295); Potassium 4.5 mmol/L (3.5-5.1); Sodium 138 mmol/L (136-145); Total Bilirubin 0.3 mg/dL (0.15-1.2); Total Protein 7.5 g/dL (6.6-8.7)
== END 2023-11-07 23:59 | disposition home or self-care (01) ==
PROVIDERS: PCP Emergency Medicine Emergency Medical Services; Visit Provider Internal Medicine Medical Oncology
DX: C34.12 Malignant neoplasm of upper lobe, left bronchus or lung (principal); C34.01 Malignant neoplasm of right main bronchus; C79.31 Secondary malignant neoplasm of brain; Z90.2 Acquired absence of lung [part of]; Z92.21 Personal history of antineoplastic chemotherapy; Z92.3 Personal history of irradiation; Z79.69 Long term (current) use of other immunomodulators and immunosuppressants; C22.0 Liver cell carcinoma; Z79.899 Other long term (current) drug therapy
CPT/HCPCS: 36591; 80053; 85025; 99214

== ENCOUNTER 2023-11-29 06:17 | Outpatient (CLI) | payer OTHER, SELFPAY ==
--- NOTE | 2023-11-29 06:40 | CTR_ITS ---
PROCEDURE INFORMATION: Exam: CT Chest Without Contrast; Diagnostic Exam date and time: 11/29/2023 6:46 AM Age: 68 years old Clinical indication: Abnormal findings; Abnormal radiologic exam of lung or chest; Prior surgery; Surgery date: 6+ months; Surgery type: Lt lobectomy; Patient HX: Cancer (type)--lung, liver; Additional info: Abnormal cxr TECHNIQUE: Imaging protocol: Diagnostic computed tomography of the chest without contrast. Radiation optimization: All CT scans at this facility use at least one of these dose optimization techniques: automated exposure control; mA and/or kV adjustment per patient size (includes targeted exams where dose is matched to clinical indication); or iterative reconstruction. COMPARISON: 1. CT angio chest PE protcl [id number] 01/23/2023 7:27 PM 2. CR (CHEST, ) 07/24/2023 10:[address] abdomen w con* [id number] 03/12/2022 11:38 AM RADIATION DOSE METRICS: Total DLP (mGy-cm): 330.95 FINDINGS: Tubes, catheters and devices: Left chest port terminates at the SVC. Lungs: Redemonstrated emphysematous changes. Allowing for differences in technique with lack of contrast on today's exam, compared to January 2023, stable right perihilar masslike thickening. Mild pleural-parenchymal thickening at the right posteromedial lung base likely represents atelectasis or scarring. Mild ground-glass opacity at the posterior right lower lobe on axial images 40-43 of series 3. Mild reticulation/ground-glass opacity also at the anterior right upper lobe. Stable left upper lobectomy changes. Mild left basilar scarring. Mild left lower lobe patchy ground-glass opacities seen to advantage on sagittal image 13 of series 7. Stable 5 mm solid noncalcified left lower lobe nodule on axial image 40 of series 3. Right upper lobe calcified granuloma. Pleural spaces: No pleural effusion or pneumothorax. Heart: Unremarkable. No cardiomegaly. No pericardial effusion. Coronary arteries: Mild coronary artery calcification. Lymph nodes: Subcarinal lymph node measures 1.4 cm in the short axis decreased from 1.7 cm in January 2023. Lower left paratracheal/AP window node measures 1.3 cm in the short axis on axial image 25 of series 3, decreased from 1.6 cm. Vasculature: Moderate systemic atherosclerotic calcification with partially visualized abdominal aorta stent graft. Liver: Developed 2 cm hyperdense central liver lesion on axial image 63 of series 3, coronal image 37 of series 6. Pancreas: Diffuse pancreatic calcifications in keeping with chronic pancreatitis. Kidneys: Partially visualized small chronic left renal peripheral calcification possibly representing chronic subcapsular hematoma. Punctate left renal stone. Bilateral fluid density renal cysts. Intestine: Colonic diverticulosis. Bones/joints: No acute fracture. Stable subtle sclerosis at the L1 vertebral body suggestive of intraosseous hemangioma. Multilevel flowing osteophytosis along the spine compatible with diffuse idiopathic skeletal hyperostosis. Soft tissues: Unremarkable. CT/CT chest wo con [id number] IMPRESSION: 1. Compared to January 2023, stable right perihilar masslike thickening. 2. Patchy bilateral ground-glass opacities may be infectious or inflammatory. 3. Decreased mediastinal lymphadenopathy. 4. Developed indeterminate 2 cm hyperdense liver lesion. Recommend nonemergent liver MRI without and with contrast. 5. Additional chronic and incidental findings as above. COMMENTS: 1. Consistent with the [employer]'s Incidental Findings Committee white paper (J Am Bienvenido Radiol 2018): Any incidental renal lesion less than 1 cm or classified as too small to characterize, or any incidental cystic renal lesion characterized as simple-appearing, is likely benign. No follow-up imaging is recommended for these lesions per consensus recommendations based on imaging criteria. 2. The presence of pulmonary emphysema on CT is an independent risk factor for lung cancer. In the absence of a history or active diagnosis of lung cancer, it is recommended that this patient with emphysema be evaluated for enrollment in a low dose CT lung cancer screening program.
== END 2023-11-29 06:18 | disposition home or self-care (01) ==
LOC: RAD 06:18
PROVIDERS: PCP Nurse Practitioner Family; Visit Provider Nurse Practitioner Family
DX: R91.8 Other nonspecific abnormal finding of lung field (principal); K76.9 Liver disease, unspecified; Z85.118 Personal history of other malignant neoplasm of bronchus and lung
CPT/HCPCS: 71250

== ENCOUNTER 2023-12-02 13:56 | Inpatient (IN) | payer OTHER, MEDICARE, SELFPAY ==
[2023-12-02] VITALS (11 sets, daily range): BP systolic 92–112; BP diastolic 46–58; PULSE 78–111; RESP 17–20; TEMP 36.9–38.3; O2SAT 92–98
--- NOTE | 2023-12-02 13:58 | XR_ITS ---
WS: [id number] Exam: XR chest 1V portable [id number] Date/Time of Exam: 12/02/2023 2:37 PM Reason For Exam: sob Comparison 07/24/2023. There is an area of increasing consolidation along the mid and lower aspect of the LEFT lateral pleur al cavity. This may represent an enlarging pleural or pulmonary mass. Consolidated pneumonia could hoffmann ve the same appearance. Mass enlargement of the RIGHT hilum is unchanged. Heart size is normal. Mild elevation of the LEFT diaphragm. The mediastinum is not widened. A LEFT subclavian Port-A-Cath ends i n the midportion of the SVC. The RIGHT lung is hyperinflated. Bony structures are intact. XR/XR chest 1V portable [id number] IMPRESSION: 1. Consolidated density along the mid and lower LEFT pleural cavity that may re present an enlarging pleural-based or pulmonary mass. This could also be consol idated pneumonia. 2. Mass enlargement of the RIGHT pulmonary hilum. This is unchanged.
[2023-12-02 14:21] LABS: Basophils % 0.2 %; Eosinophils % 0.5 %; Hematocrit 35.2 % (37-53); Lymphocytes # 0.3 10^3/uL (0.8-4.8); Lymphocytes % 4.8 %; Mean Corpuscular HGB Conc 31.5 g/dL (30-55); Mean Corpuscular Hemoglobin 28.5 pg (27-33); Mean Corpuscular Volume 90.5 fl (82-101); Mean Platelet Volume 9.5 fL (7.4-10.4); Monocytes # 0.5 10^3/uL (0.2-0.9); Monocytes % 7.3 %; Neutrophils # 5.64 10^3/uL (1.8-7.7); Nucleated Red Blood Cells % 0 %; Platelet Count 149 10^3/cmm (157-399); Red Blood Count 3.89 10^6/uL (3.85-5.65); Red Cell Distribution Width 13.9 % (12.1-15.1); White Blood Count 6.47 10^3/uL (3.29-11.43)
--- NOTE | 2023-12-02 14:26 | ECG_ITS ---
[facility] Date: 2023-12-02 Pat Name: Satish Fry Department: Room: Gender: Male Private Pilot: : 1955 Requested By: Briana Maria Order Number: [id number] Jacquie MD: Jaison Winters M.D. Measurements Intervals [place] Rate: 110 P: 66 UT: 180 QRS: -46 QRSD: 126 T: 53 QT: 315 QTc: 426 Interpretive Statements SINUS TACHYCARDIA RIGHT BUNDLE BRANCH BLOCK [120+ ms QRS DURATION, UPRIGHT V1, 40+ ms S IN I/aVL/V4/V5/V6] LEFT ANTERIOR FASCICULAR BLOCK [QRS AXIS <= -45, QR IN I, RS IN II] POSSIBLE ANTERIOR MYOCARDIAL INFARCTION , OF INDETERMINATE AGE [30 ms Q WAVE IN V3/V4, OR R < 0.2 mV IN V4] Compared to ECG 07/25/2023 05:06:02 Left anterior fascicular block now present Myocardial infarct finding now present Sinus rhythm no longer present Left-axis deviation no longer present Electronically Signed On 12-05-2023 00:01:50 CDT by Jaison Winters M.D. [id number]
[2023-12-02 14:51] LABS: Alanine Aminotransferase 13 U/L (0-41); Albumin Level 3.7 g/dL (3.5-5.2); Alkaline Phosphatase 71 U/L (40-130); Anion Gap 15.2 (5-19); Aspartate Amino Transferase 24 U/L (0-40); Blood Urea Nitrogen 12 mg/dL (8-23); Calcium 8.6 mg/dL (8.5-10.5); Carbon Dioxide 24 mmol/L (22-29); Chloride 98 mmol/L (98-107); Creatinine Clr Calc Pharmacy 60.3269; Globulin 3.5 g/dL (1.3-4.6); Glomerular Filtration Rate 66.2 mL/min (90-130); Glucose 172 mg/dL (65-115); NT Pro B Type Natriuretic Pept 903 pg/mL (0-125); Osmolality Calculated 280 mOsm/kg (285-295); Potassium 4.2 mmol/L (3.5-5.1); Sodium 133 mmol/L (136-145); Total Bilirubin 0.5 mg/dL (0.15-1.2); Total Protein 7.2 g/dL (6.6-8.7)
[2023-12-02 15:15] LABS: Covid PCR NEGATIVE (Negative); Influenza A NEGATIVE (Negative); Influenza B NEGATIVE (Negative); Respiratory Syncytial Virus Ce NEGATIVE (Negative)
[2023-12-02 16:43] LABS: Lactic Sepsis W/Reflex 2.2 mmol/L (0.5-2.2)
--- NOTE | 2023-12-02 16:49 | ED_ITS ---
HPI - SOB/Dyspnea 2 General: Chief Complaint: Shortness of Breath/Dyspnea Stated Complaint: SOB, fever Time Seen by Provider: 12/02/23 16:44 Source: patient Mode of arrival: ambulatory Limitations: no limitations History of Present Illness: HPI Narrative: 68-year-old male states that over the la 2 days he has been having shortness of breath he states he had a fever this morning is febrile here with a temp of 100.9. He states he had increased productive cough he has a history of lung cancer. He states this is feels like his pneumonia in the past. He states he typically wears 3 L he is had increase it to 4 to 5 L. Denies any vomiting or diarrhea Associated symptoms: Reports fever(s); Deny abdominal pain, chest pain, nausea or vomiting Related Data Home Medications Medication Instructions Recorded Confirmed cetirizine 10 mg tablet (Zyrtec) 10 mg PO DAILY 06/19/19 11/01/23 guaifenesin 400 mg tablet 400 mg PO BID PRN unknown 06/19/19 11/01/23 tamsulosin 0.4 mg capsule 0.4 mg PO DAILY 06/19/19 11/01/23 albuterol sulfate 2.5 mg/3 mL 2.5 mg inhalation Q6H PRN 07/20/19 11/01/23 (0.083 %) solution for nebulization Shortness Of Breath albuterol sulfate 90 mcg/actuation 2 puff inhalation QID PRN 07/20/19 11/01/23 aerosol inhaler (ProAir HFA) Shortness Of Breath cholecalciferol (vitamin D3) 50 4,000 unit PO DAILY 01/20/22 11/01/23 mcg (2,000 unit) tablet (Vitamin D3) gabapentin 300 mg capsule 300 mg PO TID 01/20/22 11/01/23 fluticasone propionate 50 1 spray intranasal BID PRN Nasal 05/20/22 11/01/23 mcg/actuation nasal Congestion spray,suspension (Flonase Allergy Relief) olodaterol 2.5 mcg/actuation mist 2 inh inhalation DAILY 01/24/23 11/01/23 for inhalation apixaban 5 mg tablet (Eliquis) 5 mg PO BID@0900,2100 07/25/23 11/01/23 Previous Rx's Medication Instructions Recorded tiotropium 2.5 mcg-olodaterol 2.5 2 puff inhalation DAILY #4 grams 08/07/19 mcg/actuation mist for inhalation (Stiolto Respimat) mometasone 110 mcg/actuation(30 2 inh inhalation DAILY 90 days #3 09/25/19 doses) breath activated powder ea inhaler (Asmanex Twisthaler) naloxone 4 mg/actuation nasal 1 spray intranasal .Q2-3M PRN 07/01/22 spray (Narcan) opioid overdose #2 ea azithromycin 250 mg tablet 500 mg (2 x 250 mg) PO DAILY #10 07/25/23 tabs prednisone 10 mg tablet 10 mg PO DIRECTED #24 tabs 09/09/23 alprazolam 0.5 mg tablet 0.5 mg PO TID PRN anxiety #90 tabs 10/24/23 ezetimibe 10 mg tablet 10 mg PO DAILY #60 tabs 11/03/23 osimertinib 40 mg tablet (Tagrisso) 80 mg (2 x 40 mg) PO DAILY #56 tabs 11/11/23 oxycodone 10 mg tablet See Rx Instructions PO QID PRN 11/23/23 pain 30 days #150 tabs Allergies Allergy/AdvReac Type Severity Reaction Status Date / Time Penicillins Allergy Severe ALGY-Rash Verified 12/02/23 14:26 Dsypdmj-SEK-NuW Reductase Allergy Severe ALGY-Rash Verified 12/02/23 14:26 Inhibitor [Jcphgxq-Fjr-Pbh Reductase Inhibitor] cefdinir AdvReac rash Verified 12/02/23 14:26 Review of Systems 2 Const: Reports: fever(s) and chills; Denies: body aches or change in appetite Eyes: Denies: blurry vision or eye discomfort ENMT: Denies: throat pain or dental pain Card: Denies: chest pain Resp: Reports: dyspnea and productive cough GI: Denies: abdominal pain, nausea, vomiting or diarrhea Musc: Denies: neck pain or back pain Skin/Breast: Denies: rash Neuro: Denies: headache(s) PFSH ED 2 PFSH: Medical History Chronic hypoxic respiratory failure Acute exacerbation of chronic obstructive pulmonary disease Acute hypoxic respiratory failure Community acquired pneumonia Malignant neoplasm of right main bronchus Stage IIB - T2a, N1, M0 Hepatocellular carcinoma Pulmonary embolism Chronic anxiety PTSD (post-traumatic stress disorder) Dyslipidemia Coronary artery disease History of nonmelanoma skin cancer Lung cancer metastatic to brain COPD (chronic obstructive pulmonary disease) HTN (hypertension) Arthritis Allergies Aortic aneurysm History of hepatitis C Surgical History History of cataract extraction Right eye, 2021 H/O colonoscopy 3 yrs ago H/O aortic aneurysm repair H/O circumcision S/P lobectomy of lung H/O hernia repair Family History Father Cancer Family/Other CAD (coronary artery disease) Cancer Grandfather Cancer Mother Brain aneurysm Denies family history of Anesthesia complication Bleeding disorder Social History Smoking and tobacco/nicotine status: unknown if used tobacco/nicotine Quit status (tobacco/nicotine): considering quitting Alcohol intake: current Alcohol intake frequency: 0-2 Drinks per Day Alcohol type: beer Substance/Drug Use: never Lives independently: Yes Household members: spouse Marital status: service: Yes Current occupational status: disabled Do you think of yourself as: Straight/Heterosexual Current gender identity: Male Physical Exam 2 Const: COMMON NORMALS: no acute distress, patient oriented x3 and healthy appearing HENMT: COMMON NORMALS: normocephalic and atraumatic HEAD & SCALP: n ormocephalic and atraumatic Neck/C-Spine: COMMON NORMALS: full ROM and supple Chest: COMMONS NORMALS: normal inspection of the chest Resp: COMMON NORMALS: normal respiratory effort, No retractions and No use of accessory muscles AUSCULTATION: rales on the left in the lower lung feliz Cardio: COMMON NORMALS: regular rate, regular rhythm and No murmurs present (Cardio) RATE: regular rate RHYTHM: regular rhythm Extremity: COMMON NORMALS: normal to inspection and full ROM Neuro: COMMON NORMALS: patient oriented x3, moves all extremities and no focal motor deficits Psych: COMMON NORMALS: mental status grossly normal, Normal thought process present and cooperative THOUGHT PROCESS: Normal thought process present Skin: COMMON NORMALS: no rashes or lesions noted and no wounds GENERAL SKIN EXAM: no rashes or lesions noted Course 2 Vital Signs: Vital signs: Vital Signs Temperature 100.9 F H 12/02/23 14:18 Pulse Rate 111 H 12/02/23 14:18 Respiratory Rate 20 H 12/02/23 14:18 Blood Pressure 96/57 12/02/23 14:18 Pulse Oximetry 94 12/02/23 14:18 Oxygen Delivery Me thod Nasal Cannula 12/02/23 14:18 Oxygen Flow Rate 4 12/02/23 14:18 MDM - SOB/Dyspnea Medical Decision Making Patient presents with cough fever does have a left-sided pneumonia spoke to the hospitalist will admit at this time. Medical Records I reviewed the patient's medical records. Lab Data I reviewed the patient's lab results. 12/02/23 14:11 12/02/23 14:11 Labs/Radiology: Radiology Impressions Chest X-Ray 12/02/23 13:58 IMPRESSION: 1. Consolidated density along the mid and lower LEFT pleural cavity that may represent an enlarging pleural-based or pulmonary mass. This could also be consolidated pneumonia. 2. Mass enlargement of the RIGHT pulmonary hilum. This is unchanged. Laboratory Results WBC 6.47 10^3/uL (3.29-11.43) 12/02/23 14:11 RBC 3.89 10^6/uL (3.85-5.65) 12/02/23 14:11 Hgb 11.10 g/dL (11.27-16.99) L 12/02/23 14:11 Hct 35.2 % (37-53) L 12/02/23 14:11 MCV 90.5 fl (82-101) 12/02/23 14:11 MCH 28.5 pg (27-33) 12/02/23 14:11 MCHC 31.5 g/dL (30-55) 12/02/23 14:11 RDW 13.9 % (12.1-15.1) 12/02/23 14:11 Plt Count 149 10^3/cmm (157-399) L 12/02/23 14:11 MPV 9.5 fL (7.4-10.4) 12/02/23 14:11 Neut % (Auto) 87.0 % 12/02/23 14:11 Lymph % (Auto) 4.8 % 12/02/23 14:11 [place] % (Auto) 7.3 % 12/02/23 14:11 Eos % (Auto) 0.5 % 12/02/23 14:11 Baso % (Auto) 0.2 % 12/02/23 14:11 Neut # (Auto) 5.64 10^3/uL (1.8-7.7) 12/02/23 14:11 Lymph # (Auto) 0.3 10^3/uL (0.8-4.8) L 12/02/23 14:11 [place] # (Auto) 0.5 10^3/uL (0.2-0.9) 12/02/23 14:11 Eos # (Auto) 0.0 10^3/uL (0.0-0.8) 12/02/23 14:11 Baso # (Auto) 0.0 10^3/uL (0.0-0.1) 12/02/23 14:11 Nucleated RBC % (auto) 0 % 12/02/23 14:11 Nucleated RBCs # 0.0 /100WBC 12/02/23 14:11 Sodium 133 mmol/L (136-145) L 12/02/23 14:11 Potassium 4.2 mmol/L (3.5-5.1) 12/02/23 14:11 Chloride 98 mmol/L (98-107) 12/02/23 14:11 Carbon Dioxide 24 mmol/L (22-29) 12/02/23 14:11 Anion Gap 15.2 (5-19) 12/02/23 14:11 BUN 12 mg/dL (8-23) 12/02/23 14:11 Creatinine 1.1 mg/dL (0.7-1.2) 12/02/23 14:11 GFR Calculation 66.2 mL/min (90-130) L 12/02/23 14:11 Glucose 172 mg/dL (65-115) H 12/02/23 14:11 Calculated Osmolality 280 mOsm/kg (285-295) L 12/02/23 14:11 Lactic Acid 2.2 mmol/L (0.5-2.2) 12/02/23 14:11 Calcium 8.6 mg/dL (8.5-10.5) 12/02/23 14:11 Total Bilirubin 0.5 mg/dL (0.15-1.2) 12/02/23 14:11 AST 24 U/L (0-40) 12/02/23 14:11 ALT 13 U/L (0-41) 12/02/23 14:11 Alkaline Phosphatase 71 U/L (40-130) 12/02/23 14:11 NT-Pro-B Natriuret Pep 903 pg/mL (0-125) H 12/02/23 14:11 Total Protein 7.2 g/dL (6.6-8.7) 12/02/23 14:11 Albumin 3.7 g/dL (3.5-5.2) 12/02/23 14:11 Globulin 3.5 g/dL (1.3-4.6) 12/02/23 14:11 Coronavirus (PCR) Negative (Negative) 12/02/23 14:35 Influenza A (PCR) Negative (Negative) 12/02/23 14:35 Influenza Type B (PCR) Negative (Negative) 12/02/23 14:35 RSV (PCR) Negative (Negative) 12/02/23 14:35 All radiology interpretation(s) finalized by discharge Discharge Plan Discharge Patient Disposition: Admitted As Inpatient Clinical Impression: Community acquired pneumonia Qualifiers: Laterality: left Lung location: lower lobe of lung Qualified Code(s): J18.9 - Pneumonia, unspecified organism Condition: Stable Prescriptions: No Action Stiolto Respimat 2.5-2.5 mcg/actuation mist 2 puff INHALATION DAILY Qty: 4 3RF tamsulosin 0.4 mg capsule 0.4 mg PO DAILY guaifenesin 400 mg tablet 400 mg PO BID PRN (Reason: unknown) cetirizine [Zyrtec] 10 mg tablet 10 mg PO DAILY gabapentin 300 mg capsule 300 mg PO TID fluticasone propionate [Flonase Allergy Relief] 50 mcg/actuation spray,suspension 1 spray INTRANASAL BID PRN (Reason: Nasal Congestion) Rx Instructions: administer into each nostril Tagrisso 40 mg tablet 80 mg PO DAILY Qty: 56 2RF Hold Instructions: Resume on 02/01/23. Asmanex Twisthaler 110 mcg/ actuation (30) aerosol powdr breath activated 2 inh INHALATION DAILY 90 Days Qty: 3 3RF Rx Instructions: administer 1 hour before bedtime naloxone [Narcan] 4 mg/actuation spray,non-aerosol 1 spray intranasal .Q2-3M PRN (Reason: opioid overdose) Qty: 2 0RF Rx Instructions: spray 1 dose into ONE nostril; alternate nostrils w each dose until help arrives prednisone 10 mg tablet 10 mg PO DIRECTED Qty: 24 0RF Rx Instructions: 2 tabs BID x3 days 1 tab BID x3 days 1 tab daily x6 days alprazolam 0.5 mg tablet 0.5 mg PO TID PRN (Reason: anxiety) Qty: 90 3RF ezetimibe 10 mg tablet 10 mg PO DAILY Qty: 60 0RF oxycodone 10 mg tablet See Rx Instructions PO QID PRN (Reason: pain) 30 Days Qty: 150 0RF Rx Instructions: 1-2 tablets PO four times daily PRN; albuterol sulfate 2.5 mg /3 mL (0.083 %) Solution For Nebulization 2.5 mg INHALATION Q6H PRN (Reason: Shortness Of Breath) albuterol sulfate [ProAir HFA] 90 mcg/actuation Hfa Aerosol Inhaler 2 puff INHALATION QID PRN (Reason: Shortness Of Breath) cholecalciferol (vitamin D3) [Vitamin D3] 50 mcg (2,000 unit) tablet 4,000 unit PO DAILY olodaterol 2.5 mcg/actuation Mist 2 inh INHALATION DAILY Eliquis 5 mg tablet 5 mg PO BID@0900,2100 Rx Instructions: 10mg BID for 1 week then switch to 5mg BID azithromycin 250 mg Tablet 500 mg PO DAILY Qty: 10 0RF Referrals: Sridevi Campbell APRN [Primary Care Provider] - Coding Level of Care Code ED Hand Polisher for Micah Vizcaino
[2023-12-02] MEDS: acetaminophen 500 mg Tablet 1000 MG PO (17:05)
[2023-12-02] MEDS: sodium chloride 0.9% 1,000 ML 999 ML IV (17:06)
[2023-12-02] MEDS: levofloxacin-dextrose 5 % 750 MG/150 ML PREMIX 100 MG IV (17:07)
--- NOTE | 2023-12-02 18:12 | P.HP_ITS ---
Providers/Chief Complaint 2 Primary Care Provider: Sridevi Campbell APRN Chief Complaint: SOB, fever History of Present Illness Satish Fry is a 68 year old male With history of non-small cell lung cancer, hepatocellular carcinoma presented to the hospital with shortness of breath that started this morning. He states he has been coughing and has had a fever at home. Upon arrival to ER fever was 100.8. He says he was so short of breath that he had to turn up his oxygen to 4 L. He takes 3 L at home normally however has had to go up to 4 L. Denies nausea vomiting diarrhea constipation abdominal pain chest pain otherwise. Blood pressure 96/57 posterior 20, pulse 111, temperature 100.9, saturating 94% on 4 L nasal cannula. Chest x-ray does show consolidated density along mid and lower left pleural cavity that may represent an enlarging pleural-based or pulmonary mass. This could also be consolidated pneumonia. Mass enlargement of right pulmonary hilum. This is unchanged. Medications/Allergies Home Medications Medication Instructions Recorded Confirmed Last Taken Type cetirizine 10 mg tablet (Zyrtec) 10 mg PO DAILY 06/19/19 12/02/23 10/02/19 History guaifenesin 400 mg tablet 400 mg PO BID PRN unknown 06/19/19 12/02/23 10/02/19 History tamsulosin 0.4 mg capsule 0.4 mg PO DAILY 06/19/19 12/02/23 10/02/19 History albuterol sulfate 2.5 mg/3 mL 2.5 mg inhalation Q6H PRN 07/20/19 12/02/23 10/02/19 History (0.083 %) solution for nebulization Shortness Of Breath albuterol sulfate 90 mcg/actuation 2 puff inhalation QID PRN 07/20/19 12/02/23 10/02/19 History aerosol inhaler (ProAir HFA) Shortness Of Breath tiotropium 2.5 mcg-olodaterol 2.5 2 puff inhalation DAILY #4 grams 08/07/19 12/02/23 10/02/19 Rx mcg/actuation mist for inhalation (Stiolto Respimat) mometasone 110 mcg/actuation(30 2 inh inhalation DAILY 90 days #3 09/25/19 12/02/23 10/02/19 Rx doses) breath activated powder ea inhaler (Asmanex Twisthaler) cholecalciferol (vitamin D3) 50 4,000 unit PO DAILY 01/20/22 12/02/23 Unknown History mcg (2,000 unit) tablet (Vitamin D3) gabapentin 300 mg capsule 300 mg PO TID 01/20/22 12/02/23 Unknown History fluticasone propionate 50 1 spray intranasal BID PRN Nasal 05/20/22 12/02/23 Unknown History mcg/actuation nasal Congestion spray,suspension (Flonase Allergy Relief) naloxone 4 mg/actuation nasal 1 spray intranasal .Q2-3M PRN 07/01/22 12/02/23 Unknown Rx spray (Narcan) opioid overdose #2 ea alprazolam 0.5 mg tablet 0.5 mg PO TID PRN anxiety #90 tabs 10/24/23 12/02/23 Unknown Rx ezetimibe 10 mg tablet 10 mg PO DAILY #60 tabs 11/03/23 12/02/23 Unknown Rx osimertinib 40 mg tablet (Tagrisso) 80 mg (2 x 40 mg) PO DAILY #56 tabs 11/11/23 12/02/23 Unknown Rx oxycodone 10 mg tablet See Rx Instructions PO QID PRN 11/23/23 12/02/23 Unknown Rx pain 30 days #150 tabs apixaban 5 mg tablet (Eliquis) 5 mg PO BID 12/02/23 12/02/23 Unknown History Allergies Allergy/AdvReac Type Severity Reaction Status Date / Time Penicillins Allergy Severe ALGY-Rash Verified 12/02/23 14:26 Hvigpvp-PIS-HoX Reductase Allergy Severe ALGY-Rash Verified 12/02/23 14:26 Inhibitor [Ccwnlbi-Xiv-Bor Reductase Inhibitor] cefdinir AdvReac rash Verified 12/02/23 14:26 PFSH Acute 2 PFSH: Medical History Chronic hypoxic respiratory failure Acute exacerbation of chronic obstructive pulmonary disease Acute hypoxic respiratory failure Community acquired pneumonia Malignant neoplasm of right main bronchus Stage IIB - T2a, N1, M0 Hepatocellular carcinoma Pulmonary embolism Chronic anxiety PTSD (post-traumatic stress disorder) Dyslipidemia Coronary artery disease History of nonmelanoma skin cancer Lung cancer metastatic to brain COPD (chronic obstructive pulmonary disease) HTN (hypertension) Arthritis Allergies Aortic aneurysm History of hepatitis C Surgical History History of cataract extraction Right eye, 2021 H/O colonoscopy 3 yrs ago H/O aortic aneurysm repair H/O circumcision S/P lobectomy of lung H/O hernia repair Family History Father Cancer Family/Other CAD (coronary artery disease) Cancer Grandfather Cancer Mother Brain aneurysm Denies family history of Anesthesia complication Bleeding disorder Social History Smoking and tobacco/nicotine status: unknown if used tobacco/nicotine Quit status (tobacco/nicotine): considering quitting Alcohol intake: current Alcohol intake frequency: 0-2 Drinks per Day Alcohol type: beer Substance/Drug Use: never Lives independently: Yes Household members: spouse Marital status: service: Yes Current occupational status: disabled Do you think of yourself as: Straight/Heterosexual Current gender identity: Male Vitals/I&O/Wt Last Vital Signs Temp 100.9 F H 12/02/23 14:18 Pulse 111 H 12/02/23 14:18 Resp 20 H 12/02/23 14:18 BP 96/57 12/02/23 14:18 Pulse Ox 94 12/02/23 14:18 O2 Del Method Nasal Cannula 12/02/23 14:18 O2 Flow Rate 4 12/02/23 14:18 Weight last 48 hrs Weight 68.039 kg Physical Exam 2 Narrative: General: Alert oriented x3, ill-appearing male sitting up in bed appearing comfortable at this time on 4 L nasal cannula. Does have an audible wheeze. HEENT: Normocephalic, atraumatic, EOMI, Cardio: Sinus tachycardia normal S1-S2, no gross murmurs. Respiratory: Clear to auscultation bilaterally no wheezes no rhonchi GI: Abdomen soft, nontender, nondistended, bowel sounds + Extremities: No edema bilateral lower extremities Data 12/03/23 03:07 12/03/23 03:07 A&P Assessment and plan (1) PTSD (post-traumatic stress disorder): (2) Pulmonary embolism: (3) Hepatocellular carcinoma: (4) Secondary malignant neoplasm of brain: (5) Community acquired pneumonia: Qualifiers: Laterality: left Lung location: lower lobe of lung Qualified Code(s): J18.9 - Pneumonia, unspecified organism (6) Nicotine addiction: (7) COPD (chronic obstructive pulmonary disease): Plan #Left sided pneumonia #Non-small cell lung cancer #Hepatocellular carcinoma #On Osimertinib ##History of COPD #History of pulmonary embolism #Dyslipidemia #History of coronary artery disease -Continue vancomycin and Levaquin at this time ? Check sputum Gram stain culture ? Check blood cultures ? Wean off oxygen as able. ? Continue Solu-Medrol 40 IV twice daily ? DuoNeb every 6 hours ? Check bacterial antigens Legionella, Streptococcus ? Continue home Eliquis, Xanax, gabapentin, oxycodone for pain, tamsulosin ? Hold chemo medication at this time Full code Due to prophylaxis: On Eliquis Attestations 2 Medical Necessity Statement*: Greater than 2 midnight stay for management of left-sided pneumonia. Diagnoses PTSD (post-traumatic stress disorder) F43.10 Pulmonary embolism I26.99 Hepatocellular carcinoma C22.0 Secondary malignant neoplasm of brain C79.31 Community acquired pneumonia J18.9 Laterality: left Lung location: lower lobe of lung Nicotine addiction F17.200 COPD (chronic obstructive pulmonary disease) J44.9
[2023-12-02 18:18] LABS: Reflex Lactate Order REFLEX LACTIC ORDERD
[2023-12-02] MEDS: methylPREDNISolone sod succ 40 mg/mL INJ IVP (18:48)
[2023-12-02] MEDS: sodium chloride 0.9% 1,000 ML 100 ML IV (18:48)
[2023-12-02 19:09] LABS: Lactic Sepsis W/Reflex 0.7 mmol/L (0.5-2.2)
[2023-12-02 19:15] LABS: Procalcitonin 3.37 ng/mL (0-0.5)
[2023-12-02] MEDS: ipratropium-albuterol 3 mL Neb INHALATION (19:55)
[2023-12-02] MEDS: apixaban 5 mg Tablet PO (21:52)
[2023-12-02] MEDS: oxyCODONE 5 mg IR Tab/Cap PO (21:52)
[2023-12-03] VITALS (19 sets, daily range): BP systolic 107–128; BP diastolic 48–67; PULSE 82–128; RESP 16–20; TEMP 36.3–36.9; O2SAT 92–96
[2023-12-03 03:56] LABS: Basophils % 0.1 %; Hematocrit 34.6 % (37-53); Lymphocytes # 0.5 10^3/uL (0.8-4.8); Lymphocytes % 6.3 %; Mean Corpuscular HGB Conc 32.1 g/dL (30-55); Mean Corpuscular Hemoglobin 29.5 pg (27-33); Mean Platelet Volume 9.9 fL (7.4-10.4); Monocytes # 0.2 10^3/uL (0.2-0.9); Monocytes % 2.8 %; Neutrophils # 7.34 10^3/uL (1.8-7.7); Neutrophils % 90.6 %; Nucleated Red Blood Cells % 0 %; Platelet Count 145 10^3/cmm (157-399); Red Blood Count 3.76 10^6/uL (3.85-5.65); Red Cell Distribution Width 13.9 % (12.1-15.1); White Blood Count 8.11 10^3/uL (3.29-11.43)
[2023-12-03 04:06] LABS: INR 1.99 (0.8-1.2)
[2023-12-03 04:16] LABS: Alanine Aminotransferase 11 U/L (0-41); Albumin Level 3.5 g/dL (3.5-5.2); Alkaline Phosphatase 67 U/L (40-130); Anion Gap 15.1 (5-19); Aspartate Amino Transferase 20 U/L (0-40); Blood Urea Nitrogen 12 mg/dL (8-23); Calcium 8.4 mg/dL (8.5-10.5); Carbon Dioxide 21 mmol/L (22-29); Chloride 105 mmol/L (98-107); Creatinine Clr Calc Pharmacy 67.7833; Globulin 3.7 g/dL (1.3-4.6); Glomerular Filtration Rate 73.9 mL/min (90-130); Glucose 168 mg/dL (65-115); Magnesium 1.8 mg/dL (1.7-2.3); Osmolality Calculated 288 mOsm/kg (285-295); Potassium 4.1 mmol/L (3.5-5.1); Sodium 137 mmol/L (136-145); Total Bilirubin 0.4 mg/dL (0.15-1.2); Total Protein 7.2 g/dL (6.6-8.7)
[2023-12-03] MEDS: methylPREDNISolone sod succ 40 mg/mL INJ IVP ×2 (06:37→17:45)
[2023-12-03] MEDS: sodium chloride 0.9% 1,000 ML 100 ML IV ×2 (06:37→17:46)
[2023-12-03] MEDS: ipratropium-albuterol 3 mL Neb INHALATION ×4 (07:58→20:17)
[2023-12-03] MEDS: apixaban 5 mg Tablet PO ×2 (09:17→22:00)
[2023-12-03] MEDS: oxyCODONE 5 mg IR Tab/Cap PO ×3 (09:22→22:00)
[2023-12-03 09:35] LABS: Procalcitonin 4.26 ng/mL (0-0.5)
--- NOTE | 2023-12-03 09:38 | P.PHAVANC_ITS ---
Vancomycin Goal - Goal Vancomycin Goal:: 15-20 mg/L Vancomycin Indication:: Pneumonia - Therapy Current therapy:: Other Antibiotic (LEVAQUIN 750MG IVPB Q24H) Day of therpy:: Day [1]of [] . Actual body weight (kg): 71.7 kg [place] body weight: 68.4 Dosing weight (kg): 71.7 - Data Labs: WBC 8.11 10^3/uL (3.29-11.43) 12/03/23 03:07 RBC 3.76 10^6/uL (3.85-5.65) L 12/03/23 03:07 Hgb 11.10 g/dL (11.27-16.99) L 12/03/23 03:07 Hct 34.6 % (37-53) L 12/03/23 03:07 MCV 92.0 fl (82-101) 12/03/23 03:07 MCH 29.5 pg (27-33) 12/03/23 03:07 MCHC 32.1 g/dL (30-55) 12/03/23 03:07 RDW 13.9 % (12.1-15.1) 12/03/23 03:07 Sodium 137 mmol/L (136-145) 12/03/23 03:07 Potassium 4.1 mmol/L (3.5-5.1) 12/03/23 03:07 Chloride 105 mmol/L (98-107) 12/03/23 03:07 Carbon Dioxide 21 mmol/L (22-29) L 12/03/23 03:07 Anion Gap 15.1 (5-19) 12/03/23 03:07 BUN 12 mg/dL (8-23) 12/03/23 03:07 Creatinine 1.0 mg/dL (0.7-1.2) 12/03/23 03:07 GFR Calculation 73.9 mL/min (90-130) L 12/03/23 03:07 Last dialysis session:: N/A Drug administration history:: Medications Levofloxacin/Dextrose (Levaquin-D5w) 750 mg in 150 mls @ 100 mls/hr IV Q24H AGUS; Protocol Vancomycin HCl (Vancocin) 2,000 mg in 400 mls @ 200 mls/hr IV ONCE ONE Stop: 12/03/23 11:44 Vancomycin HCl 750 mg/ Sodium (Chloride) 250 mls @ 250 mls/hr IV Q12H [facility] Treatment plan:: new consult Regimen:: 750MG IVPB Q12H Follow up:: Pharmacy will continue to monitor daily. Scr with am labs
[2023-12-03] MEDS: aztreonam 1,000 MG in sodium chloride 0.9% (plus) 50 ML 100 MG IV (10:54)
[2023-12-03] MEDS: vancomycin 2,000 MG/400 ML PIGGYBACK 200 MG IV (10:54)
--- NOTE | 2023-12-03 12:24 | P.PN_ITS ---
Subjective 2 Subjective: Seen this morning. Patient feels a lot better and is close to his baseline. Saturating 94% on 2 L nasal cannula. He states he feels great. Family present at bedside. He would like to take off the SCDs and go for a walk. Vitals/I&O/Wt Last Vital Signs Temp 98.4 F 12/03/23 11:31 Pulse 92 12/03/23 12:23 Resp 18 12/03/23 12:00 BP 125/64 12/03/23 11:31 Pulse Ox 94 12/03/23 12:00 O2 Del Method Nasal Cannula 12/03/23 12:00 O2 Flow Rate 3 12/03/23 12:00 12/02/23 12/03/23 12/03/23 22:59 06:59 14:59 Intake Total 1150 / 1150 1000 / 2150 240 / 240 Output Total 600 / 600 3100 / 3700 Balance 550 / 550 -2100 / -1550 240 / 240 Weight last 48 hrs Weight 71.7 kg Weight 71.7 kg Weight 68.039 kg Physical Exam 2 Narrative: General: Alert oriented x3, no acute distress. Comfortable at this time on 3 L nasal cannula. HEENT: Normocephalic, atraumatic, EOMI, Cardio: Regular rate rhythm normal S1-S2, no gross murmurs. Respiratory: Clear to auscultation bilaterally no wheezes no rhonchi GI: Abdomen soft, nontender, nondistended, bowel sounds + Extremities: No edema bilateral lower extremities Data 12/03/23 03:07 12/03/23 03:07 Micro: Microbiology 12/03/23 00:00 Legionella Urinary Antigen - Final Urine,Voided Bacterial Antigens - Final 12/02/23 18:39 Blood Culture - Preliminary Blood SPECIMEN COLLECTED 12/02/23 18:37 Blood Culture - Preliminary Blood SPECIMEN COLLECTED A&P Assessment and plan (1) PTSD (post-traumatic stress disorder): (2) Pulmonary embolism: (3) Hepatocellular carcinoma: (4) Secondary malignant neoplasm of brain: (5) Community acquired pneumonia: Qualifiers: Laterality: left Lung location: lower lobe of lung Qualified Code(s): J18.9 - Pneumonia, unspecified organism (6) Nicotine addiction: (7) COPD (chronic obstructive pulmonary disease): Plan #Left sided pneumonia #Non-small cell lung cancer #Hepatocellular carcinoma #On Osimertinib ##History of COPD #History of pulmonary embolism #Dyslipidemia #History of coronary artery disease -Continue vancomycin and Levaquin at this time. Check MRSA nares swab. If negative will DC vancomycin. ? Check sputum Gram stain culture ? Check blood cultures ? Wean off oxygen as able. ? Continue Solu-Medrol 40 IV twice daily ? DuoNeb every 6 hours ? Check bacterial antigens Legionella, Streptococcus ? Continue home Eliquis, Xanax, gabapentin, oxycodone for pain, tamsulosin ? Hold chemo medication at this time ? Patient feels a lot better. If continues to show improvement and is back to baseline may be able to discharge home in the morning with oral antibiotics and steroids. Full code Due to prophylaxis: On Eliquis Attestations 2 Medical Necessity Statement*: Greater than 2 midnight stay for management of left-sided pneumonia. Diagnoses PTSD (post-traumatic stress disorder) F43.10 Pulmonary embolism I26.99 Hepatocellular carcinoma C22.0 Secondary malignant neoplasm of brain C79.31 Community acquired pneumonia J18.9 Laterality: left Lung location: lower lobe of lung Nicotine addiction F17.200 COPD (chronic obstructive pulmonary disease) J44.9
[2023-12-03 14:20] LABS: MRSA PCR OZH (swab) MRSA Detected (Negative)
--- NOTE | 2023-12-03 16:28 | PC.NURSE ---
pt positive for mrsa from nares.moved to room 250-2 to isolate.
[2023-12-03] MEDS: levofloxacin-dextrose 5 % 750 MG/150 ML PREMIX 100 MG IV (17:45)
[2023-12-03] MEDS: ALPRAZolam 0.5 mg Tablet PO (22:00)
[2023-12-03] MEDS: VANCOMYCIN ADD-Vantage 750 MG in 0.9% NaCl ADD-Vantage 250 ML 250 MG IV (22:02)
[2023-12-03] MEDS: metoprolol tartrate 25 mg Tablet PO (23:51)
[2023-12-04] VITALS (8 sets, daily range): BP systolic 123–131; BP diastolic 65–74; PULSE 82–105; RESP 16–18; TEMP 36.7–36.8; O2SAT 93–96
[2023-12-04 04:50] LABS: Hematocrit 36.2 % (37-53); Lymphocytes # 0.4 10^3/uL (0.8-4.8); Lymphocytes % 5.3 %; Mean Corpuscular Hemoglobin 28.3 pg (27-33); Mean Corpuscular Volume 97.6 fl (82-101); Mean Platelet Volume 10.4 fL (7.4-10.4); Monocytes # 0.5 10^3/uL (0.2-0.9); Monocytes % 6.6 %; Neutrophils # 6.83 10^3/uL (1.8-7.7); Neutrophils % 87.7 %; Nucleated Red Blood Cells % 0 %; Platelet Count 144 10^3/cmm (157-399); Red Blood Count 3.71 10^6/uL (3.85-5.65); Red Cell Distribution Width 14.3 % (12.1-15.1); White Blood Count 7.78 10^3/uL (3.29-11.43)
[2023-12-04 05:13] LABS: Blood Urea Nitrogen 14 mg/dL (8-23); Calcium 8.4 mg/dL (8.5-10.5); Carbon Dioxide 21 mmol/L (22-29); Chloride 109 mmol/L (98-107); Creatinine Clr Calc Pharmacy 75.0655; Glomerular Filtration Rate 83.4 mL/min (90-130); Glucose 141 mg/dL (65-115); Osmolality Calculated 293 mOsm/kg (285-295); Sodium 140 mmol/L (136-145)
[2023-12-04 05:19] LABS: Anion Gap 14.1 (5-19); Potassium 4.1 mmol/L (3.5-5.1)
[2023-12-04] MEDS: sodium chloride 0.9% 1,000 ML 100 ML IV (06:03)
[2023-12-04] MEDS: methylPREDNISolone sod succ 40 mg/mL INJ IVP (06:03)
[2023-12-04] MEDS: ipratropium-albuterol 3 mL Neb INHALATION (08:10)
[2023-12-04] MEDS: VANCOMYCIN ADD-Vantage 750 MG in 0.9% NaCl ADD-Vantage 250 ML 250 MG IV (10:36)
[2023-12-04] MEDS: apixaban 5 mg Tablet PO (10:36)
[2023-12-04] MEDS: oxyCODONE 5 mg IR Tab/Cap PO (10:40)
--- NOTE | 2023-12-04 15:47 | PM.DCS ---
Discharge Providers Date of Admission: 12/02/23 17:35 Date of Discharge: December 09, 2023 Attending Provider at Admission: Hawa Katz MD Attending Provider at Discharge: Hawa Katz MD Primary Care Provider: Sridevi Campbell APRN Diagnoses at Discharge Discharge Diagnosis (1) PTSD (post-traumatic stress disorder): Status: Acute (2) Pulmonary embolism: Status: Acute (3) Hepatocellular carcinoma: Status: Acute (4) Secondary malignant neoplasm of brain: Status: Acute (5) Community acquired pneumonia: Status: Resolved Qualifiers: Laterality: left Lung location: lower lobe of lung Qualified Code(s): J18.9 - Pneumonia, unspecified organism (6) Nicotine addiction: Status: Acute (7) COPD (chronic obstructive pulmonary disease): Status: Inactive Reason for Visit Reason for Visit: SOB, fever Hospital Course Hospital Course Patient with history of non-small cell lung cancer hepatocellular carcinoma presented to the hospital with shortness of breath. He was also having coughing and fever at home. He was also febrile in the ER. Patient was requiring 4 L of nasal cannula at rest. He stated that at home normally he is on 2 to 3 L however had to titrate up secondary to his shortness of breath. Blood pressure was 96/57 on arrival. Chest x-ray did show consolidation along mid lower left pleural cavity that may represent enlarging pleural-based or pulmonary mass or this could be consolidated pneumonia. Clinically patient appeared ill. He also had an audible wheeze upon examination on admission. Blood cultures were obtained, sputum Gram stain was ordered. He was placed on Solu-Medrol 40 twice daily and started on IV Levaquin. Patient did clinically improve over next 48 hours and was discharged home on 7 days of Levaquin at this time to complete treatment for pneumonia. Upon discharge he was back to baseline nasal cannula of 2 to 3 L. Patient was asked to follow-up with his primary care doctor and oncology as an outpatient. Physical Exam Narrative: General: Alert oriented x3, no acute distress. Comfortable at this time on 3 L nasal cannula. Pt appears improved compared to admission. HEENT: Normocephalic, atraumatic, EOMI, Cardio: Regular rate rhythm normal S1-S2, no gross murmurs. Respiratory: Clear to auscultation bilaterally no wheezes no rhonchi GI: Abdomen soft, nontender, nondistended, bowel sounds + Extremities: No edema bilateral lower extremities Discharge Data Studies Completed and Pending Completed Studies During Hospitalization Category Date Time Status XR chest 1V portable [id number] Stat Exams 12/02/23 13:58 Completed Radiology Impressions Chest X-Ray 12/02/23 13:58 IMPRESSION: 1. Consolidated density along the mid and lower LEFT pleural cavity that may represent an enlarging pleural-based or pulmonary mass. This could also be consolidated pneumonia. 2. Mass enlargement of the RIGHT pulmonary hilum. This is unchanged. Laboratory Results WBC 7.78 10^3/uL (3.29-11.43) 12/04/23 04:12 RBC 3.71 10^6/uL (3.85-5.65) L 12/04/23 04:12 Hgb 10.50 g/dL (11.27-16.99) L 12/04/23 04:12 Hct 36.2 % (37-53) L 12/04/23 04:12 MCV 97.6 fl (82-101) 12/04/23 04:12 MCH 28.3 pg (27-33) 12/04/23 04:12 MCHC 29.0 g/dL (30-55) L D 12/04/23 04:12 RDW 14.3 % (12.1-15.1) 12/04/23 04:12 Plt Count 144 10^3/cmm (157-399) L 12/04/23 04:12 MPV 10.4 fL (7.4-10.4) 12/04/23 04:12 Neut % (Auto) 87.7 % 12/04/23 04:12 Lymph % (Auto) 5.3 % 12/04/23 04:12 Dale % (Auto) 6.6 % 12/04/23 04:12 Eos % (Auto) 0.0 % 12/04/23 04:12 Baso % (Auto) 0.0 % 12/04/23 04:12 Neut # (Auto) 6.83 10^3/uL (1.8-7.7) 12/04/23 04:12 Lymph # (Auto) 0.4 10^3/uL (0.8-4.8) L 12/04/23 04:12 Dale # (Auto) 0.5 10^3/uL (0.2-0.9) 12/04/23 04:12 Eos # (Auto) 0.0 10^3/uL (0.0-0.8) 12/04/23 04:12 Baso # (Auto) 0.0 10^3/uL (0.0-0.1) 12/04/23 04:12 Nucleated RBC % (auto) 0 % 12/04/23 04:12 Nucleated RBCs # 0.0 /100WBC 12/04/23 04:12 PT 23.30 SECONDS (12.1-14.9) H 12/03/23 03:07 INR 1.99 (0.8-1.2) H 12/03/23 03:07 Sodium 140 mmol/L (136-145) 12/04/23 04:12 Potassium 4.1 mmol/L (3.5-5.1) 12/04/23 04:12 Chloride 109 mmol/L (98-107) H 12/04/23 04:12 Carbon Dioxide 21 mmol/L (22-29) L 12/04/23 04:12 Anion Gap 14.1 (5-19) 12/04/23 04:12 BUN 14 mg/dL (8-23) 12/04/23 04:12 Creatinine 0.9 mg/dL (0.7-1.2) 12/04/23 04:12 GFR Calculation 83.4 mL/min (90-130) L 12/04/23 04:12 Glucose 141 mg/dL (65-115) H 12/04/23 04:12 Calculated Osmolality 293 mOsm/kg (285-295) 12/04/23 04:12 Lactic Acid 0.7 mmol/L (0.5-2.2) 12/02/23 18:37 Calcium 8.4 mg/dL (8.5-10.5) L 12/04/23 04:12 Magnesium 1.8 mg/dL (1.7-2.3) 12/03/23 03:07 Total Bilirubin 0.4 mg/dL (0.15-1.2) 12/03/23 03:07 AST 20 U/L (0-40) 12/03/23 03:07 ALT 11 U/L (0-41) 12/03/23 03:07 Alkaline Phosphatase 67 U/L (40-130) 12/03/23 03:07 NT-Pro-B Natriuret Pep 903 pg/mL (0-125) H 12/02/23 14:11 Total Protein 7.2 g/dL (6.6-8.7) 12/03/23 03:07 Albumin 3.5 g/dL (3.5-5.2) 12/03/23 03:07 Globulin 3.7 g/dL (1.3-4.6) 12/03/23 03:07 Procalcitonin 4.26 ng/mL (0-0.5) H 12/03/23 03:07 Nasal MRSA (PCR) Mrsa detected (Negative) A 12/03/23 12:35 Coronavirus (PCR) Negative (Negative) 12/02/23 14:35 Influenza A (PCR) Negative (Negative) 12/02/23 14:35 Influenza Type B (PCR) Negative (Negative) 12/02/23 14:35 RSV (PCR) Negative (Negative) 12/02/23 14:35 Vitals Last Vital Signs Temp 98.2 F 12/04/23 15:05 Pulse 105 H 12/04/23 15:05 Resp 18 12/04/23 15:05 BP 131/71 12/04/23 15:05 Pulse Ox 96 12/04/23 15:05 O2 Del Method Nasal Cannula 12/04/23 11:57 O2 Flow Rate 2 12/04/23 08:10 Discharge Plan Discharge Patient Disposition: Home Condition: Stable Prescriptions: New levofloxacin 750 mg tablet 750 mg PO DAILY 7 Days Qty: 7 0RF Continued Stiolto Respimat 2.5-2.5 mcg/actuation mist 2 puff INHALATION DAILY Qty: 4 3RF tamsulosin 0.4 mg capsule 0.4 mg PO DAILY guaifenesin 400 mg tablet 400 mg PO BID PRN (Reason: unknown) cetirizine [Zyrtec] 10 mg tablet 10 mg PO DAILY gabapentin 300 mg capsule 300 mg PO TID fluticasone propionate [Flonase Allergy Relief] 50 mcg/actuation spray,suspension 1 spray INTRANASAL BID PRN (Reason: Nasal Congestion) Rx Instructions: administer into each nostril Tagrisso 40 mg tablet 80 mg PO DAILY Qty: 56 2RF Hold Instructions: Resume on 02/01/23. Asmanex Twisthaler 110 mcg/ actuation (30) aerosol powdr breath activated 2 inh INHALATION DAILY 90 Days Qty: 3 3RF Rx Instructions: administer 1 hour before bedtime naloxone [Narcan] 4 mg/actuation spray,non-aerosol 1 spray intranasal .Q2-3M PRN (Reason: opioid overdose) Qty: 2 0RF Rx Instructions: spray 1 dose into ONE nostril; alternate nostrils w each dose until help arrives alprazolam 0.5 mg tablet 0.5 mg PO TID PRN (Reason: anxiety) Qty: 90 3RF ezetimibe 10 mg tablet 10 mg PO DAILY Qty: 60 0RF oxycodone 10 mg tablet See Rx Instructions PO QID PRN (Reason: pain) 30 Days Qty: 150 0RF Rx Instructions: 1-2 tablets PO four times daily PRN; albuterol sulfate 2.5 mg /3 mL (0.083 %) Solution For Nebulization 2.5 mg INHALATION Q6H PRN (Reason: Shortness Of Breath) albuterol sulfate [ProAir HFA] 90 mcg/actuation Hfa Aerosol Inhaler 2 puff INHALATION QID PRN (Reason: Shortness Of Breath) cholecalciferol (vitamin D3) [Vitamin D3] 50 mcg (2,000 unit) tablet 4,000 unit PO DAILY Eliquis 5 mg tablet 5 mg PO BID Discharge Orders: Discharge Order (Routine); Ordered 12/04/23 Ordered By: Hawa Katz Referrals: Sridevi Campbell APRN [Primary Care Provider] - 4-7 days (Please call Tuesday morning to schedule a hospital follow up appointment within 1 week of discharge. ) Gino Grissom MD [Hospitalist] - 7-10 days (We have notified your physician's clinic of the need for a follow-up appointment to be scheduled. If you have not heard from them within the next 2 business days, please call them directly. ) Discharge Diet: Cardiac Discharge Activity: Resume usual activity Patient Instructions: Prednisone (By mouth), Levofloxacin (By mouth) (Levaquin, Levaquin Leva-minoo), Levofloxacin (By mouth), Pulmonary Embolism (GEN), MRSA (Methicillin-Resistant Staphylococcus Aureus) (GEN), Pneumonia (GEN), Opioid Safety, Pneumonia Stoplight Discharge Attestations Time Spent in Discharge Care*: greater than 30 min Quality Metrics Clinical Quality Measures [ No reported AMI, CVA or VTE this stay] Coding Level of Care Code Acute Code for Chg Fwd Diagnoses PTSD (post-traumatic stress disorder) F43.10 Pulmonary embolism I26.99 Hepatocellular carcinoma C22.0 Secondary malignant neoplasm of brain C79.31 Community acquired pneumonia J18.9 Laterality: left Lung location: lower lobe of lung Nicotine addiction F17.200 COPD (chronic obstructive pulmonary disease) J44.9
== END 2023-12-04 15:08 | disposition home or self-care (01) | DRG 194 ==
LOC: ER 17:39 → MEDSURG 19:40
PROVIDERS: Admitting Provider Internal Medicine; Emergency Provider Emergency Medicine; PCP Nurse Practitioner Family; Visit Provider Internal Medicine
DX: J18.9 Pneumonia, unspecified organism (principal); C22.0 Liver cell carcinoma; C78.01 Secondary malignant neoplasm of right lung; C79.31 Secondary malignant neoplasm of brain; J44.0 Chronic obstructive pulmonary disease with (acute) lower respiratory infection; J96.11 Chronic respiratory failure with hypoxia; F43.10 Post-traumatic stress disorder, unspecified; F17.200 Nicotine dependence, unspecified, uncomplicated; E78.5 Hyperlipidemia, unspecified; I25.10 Atherosclerotic heart disease of native coronary artery without angina pectoris; F41.9 Anxiety disorder, unspecified; I10 Essential (primary) hypertension; Z86.711 Personal history of pulmonary embolism; Z79.01 Long term (current) use of anticoagulants; Z99.81 Dependence on supplemental oxygen
CPT/HCPCS: 0241U; 36415; 71045; 80048; 80053; 83605; 83735; 83880; 84145; 85025; 85610; 86403; 87040; 87070; 87205; 87449; 93005; 94640; 96365; 99285; J1956; J2919; J3372; J3490; J7030

== ENCOUNTER 2023-12-07 13:11 | Oncology outpatient (recurring) (ONCR) | payer OTHER, SELFPAY | END 2023-12-08 23:59 | disposition home or self-care (01) | PROVIDERS: PCP Nurse Practitioner Family; Visit Provider Internal Medicine Hematology & Oncology | DX: Z45.2 Encounter for adjustment and management of vascular access device (principal) | CPT/HCPCS: 96523 ==

== ENCOUNTER 2023-12-27 13:56 | Oncology outpatient (recurring) (ONCR) | payer OTHER, SELFPAY | END 2024-01-07 23:59 | disposition home or self-care (01) | PROVIDERS: PCP Nurse Practitioner Family; Visit Provider Internal Medicine Hematology & Oncology | DX: Z45.2 Encounter for adjustment and management of vascular access device | CPT/HCPCS: 96523 ==

== ENCOUNTER 2023-12-30 10:06 | Outpatient (CLI) | payer OTHER, MEDICARE, SELFPAY ==
--- NOTE | 2023-12-30 10:07 | PETR_ITS ---
PROCEDURE INFORMATION: Exam: PET/CT Skull Base to Mid-thigh Exam date and time: 12/30/2023 11:01 AM Age: 68 years old Clinical indication: Condition or disease; Prior surgery; Surgery date: 6+ months; Surgery type: Left lobectomy; Patient HX: HX of lung cancer, new lesion LABS AND CLINICAL REPORTS: Glucose: 101 mg/dl Treatment strategy for malignancy (PET staging): Restaging (PS) TECHNIQUE: Imaging protocol: Following at least four-hour fasting and following the injection of radiopharmaceutical, low dose CT images were obtained. Then, PET images were obtained. Attenuation corrected images were constructed using the CT scan. Fused images of PET and CT were reviewed. The standardized uptake values (SUV) reported below are maximum values within a region of interest, expressed in gm/ml. Exam includes orbital meatal line to mid-thigh. SUV normalization method: BodyWeight Radiopharmaceutical: 11.41 mCi F-18 FDG (Fluorodeoxyglucose), IV. Time of imaging post radiopharmaceutical administration: 48 minutes Injection site: right ac COMPARISON: 1. CT chest w con* [id number] 06/01/2022 4:[address] abdomen w con* [id number] 03/12/2022 11:[address] chest wo con [id number] 11/29/2023 6:46 AM 4. PT PET Scan 08/18/2019 9:[address] angio chest PE protcl [id number] 01/23/2023 7:27 PM FINDINGS: Tubes, catheters and devices: Left chest port terminates at the SVC. Brain: Visualized brain has normal physiologic uptake. Paranasal sinuses: Moderate left maxillary sinus fluid level without FDG uptake. Otherwise clear. Pharynx: No abnormal uptake. Larynx: No abnormal uptake. Lungs, pleura and trachea: Emphysematous changes. Compared to January 2023, stable CT appearance of right perihilar thickening showing low-level FDG uptake with SUV max 3.1. Stable right perihilar surgical clips. Right mid and lower lobe scarring. Resolved posterior right lower lobe ground-glass opacity. Stable left upper lobectomy changes. Mild left basilar scarring. Patchy mucous secretions within basal left lower lobe airways with suggested mild non FDG-avid tree-in-bud nodularity. Stable non FDG avid 5 mm left lower lobe nodule on axial image 227. Right upper lobe calcified granuloma. No pleural effusion. Heart: Normal physiologic uptake. Coronary arteries: Mild coronary artery calcification. Mediastinal space: No abnormal uptake. Liver: No abnormal uptake. Decreased conspicuity of central hyperdense liver lesion measuring approximately 1.1 x 0.9 cm on axial image 188 without FDG avidity, previously 2 cm. Left hepatic hypodense lesion is not FDG avid and barely perceptible, measuring approximately 2.8 cm on axial image 195, previously 4.4 cm in January 2023. Gallbladder and biliary ducts: No abnormal uptake. Pancreas: No abnormal uptake. Stable findings of chronic pancreatitis with numerous punctate calcifications. Spleen: No abnormal uptake. Adrenal glands: No abnormal uptake. Kidneys and ureters: Normal physiologic uptake. Thin chronic peripherally calcified left renal subcapsular hematoma. Photopenic fluid density right renal cyst. Couple of tiny nonobstructive left renal calculi. Stomach and bowel: No abnormal uptake. Colonic diverticulosis without findings of diverticulitis. Vasculature: Aorto bi-iliac stent graft with associated mild FDG uptake along its course, more focally avid at proximal iliac segments showing SUV max 4.5 on the left on axial image 149 and SUV max 4.4 on the right on axial image 148. Moderate systemic atherosclerotic calcification. Lymph nodes: Intervally stable size AP window lymph node measures 1.3 cm in the short axis on axial image 251 and shows SUV max 3.6. Intervally stable size subcarinal node measures 1.4 cm in the short axis and shows SUV max 3.7. These are decreased in size from January 2023, stable compared to May 2022. Skeleton: No abnormal uptake in the visualized axial and appendicular skeleton. Degenerative change along the spine. Soft tissues: FDG uptake along right hip musculature without underlying CT abnormality is likely physiologic or strain. METRICS: Mediastinal blood pool: SUV mean 2.2 Liver uptake: SUV mean 2.7 PET/PET skull to thigh SUBS [id number] IMPRESSION: 1. Compared to January 2023, grossly stable right perihilar thickening with low-level FDG uptake. Favor inflammatory, difficult to entirely exclude malignancy but stability is reassuring. 2. Resolved posterior right lower lobe ground-glass opacity. 3. Patchy mucous secretions within basal left lower lobe airways with suggested mild tree-in-bud nodularity, likely infectious or inflammatory bronchiolitis. 4. Intervally stable mediastinal lymphadenopathy decreased from January 2023 with mild FDG uptake, stable size compared to May 2022. Favor reactive, metastases thought less likely. 5. Decreased conspicuity of liver lesions as above, to include recently new hyperdense lesion centrally, which may be further evaluated with liver MRI. 6. FDG uptake along aortoiliac stent graft may be related to graft itself, possibly inflammatory. 7. Additional chronic and incidental findings as above.
== END 2023-12-30 10:07 | disposition home or self-care (01) ==
LOC: RAD 10:06 → ONCMED 10:12
PROVIDERS: PCP Nurse Practitioner Family; Visit Provider Nurse Practitioner Family
DX: C34.01 Malignant neoplasm of right main bronchus (principal)
CPT/HCPCS: 78815; A9552

== ENCOUNTER 2024-02-06 12:30 | Oncology outpatient (recurring) (ONCR) | payer OTHER, SELFPAY ==
--- NOTE | 2024-02-06 12:00 | CT_ITS ---
WS: [id number] CT CHEST, ABDOMEN AND PELVIS WITH CONTRAST HISTORY: Followup lung cancer TECHNIQUE: Contiguous 5 mm axial imaging performed through the chest, abdomen and pelvis IV contrast, oral contrast has been provided. Coronal and sagittal reformats chest. Coronal and sagittal reformat s through the abdomen and pelvis. All CT scans at [facility] use at least one of these dose o ptimization techniques: automated exposure control; mA and/or kV adjustment per patient size (include s targeted exams where dose is matched to clinical indication); or iterative reconstruction. CONTRAST: Omnipaque 350; 100 mL IV. DLP: 720.03 mGy.cm COMPARISON: 11/29/2023, 03/12/2022, PET/CT 12/30/[address]: Chronic emphysema. No new masses or nodules identified. There are a few scattered nodules w ith scarring and bronchiectasis at the lung bases which are unchanged. There is continued RIGHT bronc hovascular soft tissue thickening centrally which has been previously described. PET/CT from 12/30/19 24 suggested inflammatory and less likely malignancy due to stability. No new hilar or mediastinal ad enopathy or bronchovascular thickening. Advanced atherosclerosis aorta. Normal size pulmonary artery. LEFT subclavian Mediport. Normal size heart. No pericardial or pleural effusion. Abdomen CT: Reidentified is a low-attenuation mass in the LEFT lobe of the liver measuring 2.5 x 3.1 cm. This has been previously described consistent with a cavernous hemangioma. Negative on PET/CT. Th ere are no additional nodules or masses in the liver identified by CT. Normal portal vein. Normal gal lbladder. Normal spleen. Mild pancreatic atrophy with pancreatic calcifications. Pancreatic duct at t he pancreatic head is slightly prominent but unchanged. There are several clips near the pancreatic h ead causing shadowing and partially obscuring the pancreas. No adrenal mass. Mild bilateral renal atr ophy. Chronic thin calcified LEFT renal subcapsular hematoma. There are a few small cysts. Some of th michelle are too small to characterize completely. Status post endovascular graft repair of the abdominal aorta. No soft tissue mass or thickening adjacent to the aortic stent graft. Mesenteric arteries are normally enhancing. 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 No GI tract obstruction. Mild diverticulosis sigmoid colon. No ascites or adenopathy. Pelvic CT: No free fluid or adenopathy. Normal urinary bladder. Inguinal canals are patent bilaterall y containing fat only. Mild lumbar spondylosis. CT/CT chest abdpel w/*[id number] IMPRESSION: 1. Stable RIGHT perihilar bronchovascular soft tissue thickening. Recent PET/C T also suggested stability and flavored inflammatory over malignancy. No progre ssion or new pulmonary masses or nodules. 2. No mediastinal or hilar lymphadenopathy. 3. Previously described masses within the liver are not evident by CT. PET/CT negative hemangioma LEFT lobe of the liver is stable. 4. No adrenal mass or metastasis. 5. Stable aorta iliac stent graft with no adjacent inflammatory changes or sof t tissue. 6. Distal colonic diverticulosis without acute diverticulitis. 7. No ascites or adenopathy.
[2024-02-06] MEDS: iohexol 350 mg/mL 500 mL Btl (per mL) PO (12:18)
[2024-02-06 12:35] LABS: Blood Urea Nitrogen 12 mg/dL (8-23); Glomerular Filtration Rate 66.2 mL/min (90-130)
[2024-02-06] MEDS: iohexol 350 mg/mL 500 mL Btl (per mL) IV (12:54)
== END 2024-02-07 23:59 | disposition home or self-care (01) ==
LOC: ONCMED 12:30 → RAD 02-07 → ONCMED 02-07 15:04
PROVIDERS: PCP Nurse Practitioner Family; Visit Provider Internal Medicine Medical Oncology
DX: C34.01 Malignant neoplasm of right main bronchus (principal); Z53.9 Procedure and treatment not carried out, unspecified reason
CPT/HCPCS: 71260; 74177; 82565; 84520; 96523

== ENCOUNTER 2024-02-20 15:01 | Emergency (ER) | payer OTHER, SELFPAY ==
--- NOTE | 2024-02-20 15:05 | XR_ITS ---
WS: [id number] XR chest 1V portable [id number] REASON FOR EXAM: sob FINDINGS: Chemotherapy infusion port of the left chest with trans left subclavian catheter with the tip in the mid superior vena cava. The previously demonstrated dense lung opacities along the pleural margin of the left lower lung have partially resolved. A significant interstitial and peribronchial residual remains. No other interval change in the left lung. The mass in the right hilum does not appear to have changed significantly. There is ill-defined retic ular interstitial and groundglass opacities in the medial most aspect of the right lower lung field n ot present on the examination of 12/02/2023. Small volume of involvement. XR/XR chest 1V portable [id number] IMPRESSION: Interval changes in both lungs. Presumed resolving of pneumonitis in the left l beverly and possibly a interval development of pneumonitis in the right lower lung.
--- NOTE | 2024-02-20 15:05 | ECG_ITS ---
[facility] Test Date: 2024-02-20 Pat Name: Satish Fry Department: Room: Gender: Male In[employer]: : 1955 Requested By: Briana Maria Order Number: [id number] Jacquie MD: Jaison Winters M.D. Measurements Intervals [facility] Rate: 96 P: 61 LA: 193 QRS: -21 QRSD: 124 T: 55 QT: 355 QTc: 449 Interpretive Statements SINUS RHYTHM RIGHT BUNDLE BRANCH BLOCK [120+ ms QRS DURATION, UPRIGHT V1, 40+ ms S IN I/aVL/V4/V5/V6] ANTERIOR MYOCARDIAL INFARCTION , PROBABLY RECENT [40+ ms Q WAVE AND/OR ST/T ABNORMALITY IN V3/V4] ACUTE CT Compared to ECG 12/02/2023 14:26:11 Sinus tachycardia no longer present Left anterior fascicular block no longer present Myocardial infarct finding still present Electronically Signed On 02-21-2024 23:45:47 SHOES HAND SEWER by Jaison Winters M.D. [email or web address]
[2024-02-20 15:06] VITALS: BP 105/60; PULSE 98; TEMP 36.7; O2SAT 96; BMI 23.6
[2024-02-20 16:22] LABS: Basophils % 0.2 %; Hematocrit 33.9 % (37-53); Lymphocytes # 0.9 10^3/uL (0.8-4.8); Lymphocytes % 6.8 %; Mean Corpuscular HGB Conc 31.3 g/dL (30-55); Mean Corpuscular Volume 92.9 fl (82-101); Mean Platelet Volume 10.4 fL (7.4-10.4); Monocytes # 0.6 10^3/uL (0.2-0.9); Monocytes % 4.6 %; Neutrophils # 11.77 10^3/uL (1.8-7.7); Nucleated Red Blood Cells % 0 %; Platelet Count 147 10^3/cmm (157-399); Red Blood Count 3.65 10^6/uL (3.85-5.65); Red Cell Distribution Width 15.2 % (12.1-15.1); White Blood Count 13.39 10^3/uL (3.29-11.43)
[2024-02-20 16:56] LABS: Alanine Aminotransferase 26 U/L (0-41); Albumin Level 3.6 g/dL (3.5-5.2); Alkaline Phosphatase 114 U/L (40-130); Anion Gap 15.3 (5-19); Aspartate Amino Transferase 40 U/L (0-40); Blood Urea Nitrogen 27 mg/dL (8-23); Calcium 9.2 mg/dL (8.5-10.5); Carbon Dioxide 28 mmol/L (22-29); Chloride 94 mmol/L (98-107); Creatinine Clr Calc Pharmacy 44.8277; Globulin 4.6 g/dL (1.3-4.6); Glomerular Filtration Rate 46.3 mL/min (90-130); Glucose 155 mg/dL (65-115); NT Pro B Type Natriuretic Pept 2036 pg/mL (0-125); Osmolality Calculated 284 mOsm/kg (285-295); Potassium 4.3 mmol/L (3.5-5.1); Sodium 133 mmol/L (136-145); Total Bilirubin 0.6 mg/dL (0.15-1.2); Total Protein 8.2 g/dL (6.6-8.7)
[2024-02-20 17:00] VITALS: BP 104/59; PULSE 89; O2SAT 95
--- NOTE | 2024-02-20 17:07 | ED_ITS ---
HPI - SOB/Dyspnea 2 General: Chief Complaint: Shortness of Breath/Dyspnea Stated Complaint: sob Time Seen by Provider: 02/20/24 17:01 Source: patient Mode of arrival: ambulatory Limitations: no limitations History of Present Illness: HPI Narrative: 68-year-old male has a history of COPD w ears 2 L oxygen at baseline states over the last few days he has been having increasing cough congestion has had some productive sputum. He denies any pains he denies any worse improved factors he is able to speak in full sentences here. Associated symptoms: Deny abdominal pain, chest pain, fever(s), nausea or vomiting Related Data Home Medications Medication Instructions Recorded Confirmed cetirizine 10 mg tablet (Zyrtec) 10 mg PO DAILY 06/19/19 12/07/23 guaifenesin 400 mg tablet 400 mg PO BID PRN unknown 06/19/19 12/07/23 tamsulosin 0.4 mg capsule 0.4 mg PO DAILY 06/19/19 12/07/23 albuterol sulfate 2.5 mg/3 mL 2.5 mg inhalation Q6H PRN 07/20/19 12/07/23 (0.083 %) solution for nebulization Shortness Of Breath albuterol sulfate 90 mcg/actuation 2 puff inhalation QID PRN 07/20/19 12/07/23 aerosol inhaler (ProAir HFA) Shortness Of Breath cholecalciferol (vitamin D3) 50 4,000 unit PO DAILY 01/20/22 12/07/23 mcg (2,000 unit) tablet (Vitamin D3) gabapentin 300 mg capsule 300 mg PO TID 01/20/22 12/07/23 fluticasone propionate 50 1 spray intranasal BID PRN Nasal 05/20/22 12/07/23 mcg/actuation nasal Congestion spray,suspension (Flonase Allergy Relief) apixaban 5 mg tablet (Eliquis) 5 mg PO BID 12/02/23 12/07/23 Previous Rx's Medication Instructions Recorded tiotropium 2.5 mcg-olodaterol 2.5 2 puff inhalation DAILY #4 grams 08/07/19 mcg/actuation mist for inhalation (Stiolto Respimat) mometasone 110 mcg/actuation(30 2 inh inhalation DAILY 90 days #3 09/25/19 doses) breath activated powder ea inhaler (Asmanex Twisthaler) naloxone 4 mg/actuation nasal 1 spray intranasal .Q2-3M PRN 07/01/22 spray (Narcan) opioid overdose #2 ea ezetimibe 10 mg tablet 10 mg PO DAILY #60 tabs 11/03/23 osimertinib 40 mg tablet (Tagrisso) 80 mg (2 x 40 mg) PO DAILY #56 tabs 11/11/23 alprazolam 0.5 mg tablet 0.5 mg PO TID PRN anxiety #90 tabs 01/24/24 oxycodone 10 mg tablet See Rx Instructions PO QID PRN 01/27/24 pain 30 days #150 tabs doxycycline hyclate 100 mg tablet 100 mg PO BID 7 days #14 tabs 02/20/24 Allergies Allergy/AdvReac Type Severity Reaction Status Date / Time Penicillins Allergy Severe ALGY-Rash Verified 02/20/24 15:16 Eldzbbf-XSQ-HfO Reductase Allergy Severe ALGY-Rash Verified 02/20/24 15:16 Inhibitor [Zmdrslu-Gyk-Dmc Reductase Inhibitor] cefdinir AdvReac rash Verified 02/20/24 15:16 Review of Systems 2 Const: Denies: fever(s), chills, body aches or change in appetite ENMT: Denies: throat pain or dental pain Card: Denies: chest pain Resp: Reports: dyspnea and productive cough GI: Denies: abdominal pain, nausea, vomiting or diarrhea Musc: Denies: neck pain or back pain Skin/Breast: Denies: rash Neuro: Denies: headache(s) PFSH ED 2 PFSH: Medical History Chronic hypoxic respiratory failure Acute exacerbation of chronic obstructive pulmonary disease Acute hypoxic respiratory failure Community acquired pneumonia Malignant neoplasm of right main bronchus Hepatocellular carcinoma Pulmonary embolism Chronic anxiety PTSD (post-traumatic stress disorder) Dyslipidemia Coronary artery disease History of nonmelanoma skin cancer Lung cancer metastatic to brain COPD (chronic obstructive pulmonary disease) HTN (hypertension) Arthritis Allergies Aortic aneurysm History of hepatitis C Surgical History History of cataract extraction Right eye, 2021 H/O colonoscopy 3 yrs ago H/O aortic aneurysm repair H/O circumcision S/P lobectomy of lung H/O hernia repair Family History Father Cancer Family/Other CAD (coronary artery disease) Cancer Grandfather Cancer Mother Brain aneurysm Denies family history of Anesthesia complication Bleeding disorder Social History Smoking and tobacco/nicotine status: unknown if used tobacco/nicotine (smokeless tobacco) Quit status (tobacco/nicotine): considering quitting Alcohol intake: current Alcohol intake frequency: 0-2 Drinks per Day Alcohol type: beer Substance/Drug Use: never Lives independently: Yes Household members: spouse Marital status: service: Yes Current occupational status: disabled Do you think of yourself as: Straight/Heterosexual Current gender identity: Male Physical Exam 2 Const: COMMON NORMALS: no acute distress, patient oriented x3 and healthy appearing HENMT: COMMON NORMALS: normocephalic and atraumatic HEAD & SCALP: n ormocephalic and atraumatic Eye: COMMON NORMALS: conjunctivae normal CONJUNCTIVA: Yes conjunctivae normal Neck/C-Spine: COMMON NORMALS: full ROM and supple Chest: COMMONS NORMALS: normal inspection of the chest Resp: COMMON NORMALS: normal respiratory effort, No retractions and No use of accessory muscles AUSCULTATION: wheezes Cardio: COMMON NORMALS: regular rate, regular rhythm and No murmurs present (Cardio) RATE: regular rate RHYTHM: regular rhythm GI: COMMON NORMALS: Normal to inspection, nondistended, normoactive bowel sounds present, Soft to palpation, non-tender and no masses PALPATION: Yes Soft to palpation Extremity: COMMON NORMALS: normal to inspection and full ROM Neuro: COMMON NORMALS: patient oriented x3, moves all extremities and no focal motor deficits Psych: COMMON NORMALS: mental status grossly normal, Normal thought process present and cooperative THOUGHT PROCESS: Normal thought process present Skin: COMMON NORMALS: no rashes or lesions noted and no wounds GENERAL SKIN EXAM: no rashes or lesions noted Course 2 Vital Signs: Vital signs: Vital Signs Temperature 98.1 F 02/20/24 15:06 Pulse Rate 98 02/20/24 15:06 Blood Pressure 105/60 02/20/24 15:06 Pulse Oximetry 96 02/20/24 15:06 Oxygen Delivery Me thod Nasal Cannula 02/20/24 15:06 Oxygen Flow Rate 3 02/20/24 15:06 MDM - SOB/Dyspnea Medical Decision Making Patient presents here with bronchitis he is well-appearing here he is in no severe distress did give him a dose of Decadron we will prescribe him doxycycline he is to follow-up with PCP return if worsening. Medical Records I reviewed the patient's medical records. Lab Data I reviewed the patient's lab results. 02/20/24 16:01 02/20/24 16:01 Labs/Radiology: Radiology Impressions Chest X-Ray 02/20/24 15:05 IMPRESSION: Interval changes in both lungs. Presumed resolving of pneumonitis in the left lung and possibly a interval development of pneumonitis in the right lower lung. Laboratory Results WBC 13.39 10^3/uL (3.29-11.43) H 02/20/24 16:01 RBC 3.65 10^6/uL (3.85-5.65) L 02/20/24 16:01 Hgb 10.60 g/dL (11.27-16.99) L 02/20/24 16:01 Hct 33.9 % (37-53) L 02/20/24 16:01 MCV 92.9 fl (82-101) 02/20/24 16:01 MCH 29.0 pg (27-33) 02/20/24 16: MCHC 31.3 g/dL (30-55) 02/20/24 16:01 RDW 15.2 % (12.1-15.1) H 02/20/24 16:01 Plt Count 147 10^3/cmm (157-399) L 02/20/24 16:01 MPV 10.4 fL (7.4-10.4) 02/20/24 16:01 Neut % (Auto) 88.0 % 02/20/24 16:01 Lymph % (Auto) 6.8 % 02/20/24 16:01 [place] % (Auto) 4.6 % 02/20/24 16:01 Eos % (Auto) 0.0 % 02/20/24 16:01 Baso % (Auto) 0.2 % 02/20/24 16:01 Neut # (Auto) 11.77 10^3/uL (1.8-7.7) H 02/20/24 16:01 Lymph # (Auto) 0.9 10^3/uL (0.8-4.8) 02/20/24 16:01 [place] # (Auto) 0.6 10^3/uL (0.2-0.9) 02/20/24 16:01 Eos # (Auto) 0.0 10^3/uL (0.0-0.8) 02/20/24 16:01 Baso # (Auto) 0.0 10^3/uL (0.0-0.1) 02/20/24 16:01 Nucleated RBC % (auto) 0 % 02/20/24 16:01 Nucleated RBCs # 0.0 /100WBC 02/20/24 16:01 Sodium 133 mmol/L (136-145) L 02/20/24 16:01 Potassium 4.3 mmol/L (3.5-5.1) 02/20/24 16:01 Chloride 94 mmol/L (98-107) L 02/20/24 16:01 Carbon Dioxide 28 mmol/L (22-29) 02/20/24 16:01 Anion Gap 15.3 (5-19) 02/20/24 16:01 BUN 27 mg/dL (8-23) H 02/20/24 16:01 Creatinine 1.5 mg/dL (0.7-1.2) H 02/20/24 16:01 GFR Calculation 46.3 mL/min (90-130) L 02/20/24 16:01 Glucose 155 mg/dL (65-115) H 02/20/24 16:01 Calculated Osmolality 284 mOsm/kg (285-295) L 02/20/24 16:01 Calcium 9.2 mg/dL (8.5-10.5) 02/20/24 16:01 Total Bilirubin 0.6 mg/dL (0.15-1.2) 02/20/24 16:01 AST 40 U/L (0-40) 02/20/24 16: ALT 26 U/L (0-41) 02/20/24 16:01 Alkaline Phosphatase 114 U/L (40-130) 02/20/24 16:01 NT-Pro-B Natriuret Pep 2036 pg/mL (0-125) H 02/20/24 16:01 Total Protein 8.2 g/dL (6.6-8.7) 02/20/24 16:01 Albumin 3.6 g/dL (3.5-5.2) 02/20/24 16:01 Globulin 4.6 g/dL (1.3-4.6) 02/20/24 16:01 All radiology interpretation(s) finalized by discharge Discharge Plan Discharge Patient Disposition: Home Clinical Impression: Bronchitis Condition: Stable Prescriptions: New doxycycline hyclate 100 mg tablet 100 mg PO BID 7 Days Qty: 14 0RF No Action Stiolto Respimat 2.5-2.5 mcg/actuation mist 2 puff INHALATION DAILY Qty: 4 3RF tamsulosin 0.4 mg capsule 0.4 mg PO DAILY guaifenesin 400 mg tablet 400 mg PO BID PRN (Reason: unknown) cetirizine [Zyrtec] 10 mg tablet 10 mg PO DAILY gabapentin 300 mg capsule 300 mg PO TID fluticasone propionate [Flonase Allergy Relief] 50 mcg/actuation spray,suspension 1 spray INTRANASAL BID PRN (Reason: Nasal Congestion) Rx Instructions: administer into each nostril Tagrisso 40 mg tablet 80 mg PO DAILY Qty: 56 2RF Hold Instructions: Resume on 02/01/23. Asmanex Twisthaler 110 mcg/ actuation (30) aerosol powdr breath activated 2 inh INHALATION DAILY 90 Days Qty: 3 3RF Rx Instructions: administer 1 hour before bedtime naloxone [Narcan] 4 mg/actuation spray,non-aerosol 1 spray intranasal .Q2-3M PRN (Reason: opioid overdose) Qty: 2 0RF Rx Instructions: spray 1 dose into ONE nostril; alternate nostrils w each dose until help arrives ezetimibe 10 mg tablet 10 mg PO DAILY Qty: 60 0RF alprazolam 0.5 mg tablet 0.5 mg PO TID PRN (Reason: anxiety) Qty: 90 3RF oxycodone 10 mg tablet See Rx Instructions PO QID PRN (Reason: pain) 30 Days Qty: 150 0RF Rx Instructions: 1-2 tablets PO four times daily PRN; albuterol sulfate 2.5 mg /3 mL (0.083 %) Solution For Nebulization 2.5 mg INHALATION Q6H PRN (Reason: Shortness Of Breath) albuterol sulfate [ProAir HFA] 90 mcg/actuation Hfa Aerosol Inhaler 2 puff INHALATION QID PRN (Reason: Shortness Of Breath) cholecalciferol (vitamin D3) [Vitamin D3] 50 mcg (2,000 unit) tablet 4,000 unit PO DAILY Eliquis 5 mg tablet 5 mg PO BID Discharge Orders: Discharge ED (Routine); Ordered 02/20/24 Ordered By: Briana Maria Referrals: Sridevi Campbell APRN [Primary Care Provider] - Discharge Diet: Advance as tolerated Discharge Activity: Resume usual activity Patient Instructions: Acute Bronchitis (ED) Coding Level of Care Code ED News Cameraman for Micah Vizcaino
[2024-02-20] MEDS: doxycycline 100 mg Tablet PO (17:17)
[2024-02-20] MEDS: dexamethasone 10 mg/mL INJ IM (17:18)
== END 2024-02-20 20:01 | disposition home or self-care (01) ==
PROVIDERS: Emergency Provider Emergency Medicine; PCP Nurse Practitioner Family
DX: J40 Bronchitis, not specified as acute or chronic (principal); Z79.01 Long term (current) use of anticoagulants; F17.290 Nicotine dependence, other tobacco product, uncomplicated; J44.9 Chronic obstructive pulmonary disease, unspecified; I10 Essential (primary) hypertension; I25.10 Atherosclerotic heart disease of native coronary artery without angina pectoris; E78.5 Hyperlipidemia, unspecified
CPT/HCPCS: 36415; 71045; 80053; 83880; 85025; 93005; 96372; 99285; J1100

== ENCOUNTER 2024-04-02 12:21 | Oncology outpatient (recurring) (ONCR) | payer OTHER, SELFPAY ==
[2024-04-02 12:48] LABS: Basophils % 0.4 %; Eosinophils # 0.2 10^3/uL (0.0-0.8); Eosinophils % 3.4 %; Hematocrit 33.6 % (37-53); Lymphocytes # 1.3 10^3/uL (0.8-4.8); Lymphocytes % 23.8 %; Mean Corpuscular Volume 90.3 fl (82-101); Mean Platelet Volume 9.5 fL (7.4-10.4); Monocytes # 0.5 10^3/uL (0.2-0.9); Monocytes % 10.1 %; Neutrophils # 3.33 10^3/uL (1.8-7.7); Neutrophils % 61.9 %; Nucleated Red Blood Cells % 0 %; Platelet Count 188 10^3/cmm (157-399); Red Blood Count 3.72 10^6/uL (3.85-5.65); White Blood Count 5.37 10^3/uL (3.29-11.43)
[2024-04-02 13:12] LABS: Alanine Aminotransferase 9 U/L (0-41); Albumin Level 3.8 g/dL (3.5-5.2); Alkaline Phosphatase 69 U/L (40-130); Anion Gap 13.4 (5-19); Aspartate Amino Transferase 15 U/L (0-40); Blood Urea Nitrogen 11 mg/dL (8-23); Carbon Dioxide 25 mmol/L (22-29); Chloride 106 mmol/L (98-107); Creatinine Clr Calc Pharmacy 73.9286; Globulin 4.2 g/dL (1.3-4.6); Glomerular Filtration Rate 83.4 mL/min (90-130); Glucose 96 mg/dL (65-115); Osmolality Calculated 289 mOsm/kg (285-295); Potassium 4.4 mmol/L (3.5-5.1); Sodium 140 mmol/L (136-145); Total Bilirubin 0.3 mg/dL (0.15-1.2)
== END 2024-04-06 23:59 | disposition home or self-care (01) ==
PROVIDERS: PCP Nurse Practitioner Family; Visit Provider Internal Medicine Medical Oncology
DX: C34.01 Malignant neoplasm of right main bronchus (principal); Z87.891 Personal history of nicotine dependence; Z79.899 Other long term (current) drug therapy; Z92.3 Personal history of irradiation; Z86.011 Personal history of benign neoplasm of the brain; Z85.05 Personal history of malignant neoplasm of liver; Z92.21 Personal history of antineoplastic chemotherapy
CPT/HCPCS: 36591; 80053; 85025; 99214

== ENCOUNTER 2024-04-12 16:02 | Emergency (ER) | payer OTHER, SELFPAY ==
[2024-04-12 16:17] VITALS: BP 107/63; PULSE 82; RESP 16; TEMP 36.6; O2SAT 93; BMI 23.2
== END 2024-04-12 19:36 | disposition left against medical advice (07) ==
PROVIDERS: Emergency Provider Family Medicine; PCP Nurse Practitioner Family
DX: Z53.21 Procedure and treatment not carried out due to patient leaving prior to being seen by health care provider (principal)

== ENCOUNTER 2024-04-13 14:45 | Emergency (ER) | payer OTHER, SELFPAY ==
[2024-04-13 15:04] VITALS: BP 103/57; PULSE 82; RESP 18; TEMP 36.5; O2SAT 95
[2024-04-13 16:16] VITALS: BP 110/57; PULSE 75; RESP 16; O2SAT 93
[2024-04-13 16:45] VITALS: BP 95/49; O2SAT 93
--- NOTE | 2024-04-13 16:59 | W.ED.EPISTAX ---
HPI - Epistaxis General: Chief complaint: Epistaxis Stated complaint: bloody nose for 7 days Time Seen by Provider: 04/13/24 16:31 History of Present Illness: 68-year-old man with a history of COPD and chronic hypoxemic respiratory failure on 3 L nasal cannula at all times and lung cancer on oral chemotherapy who presents emergency room with off-and-on nosebleeding for the past week. He has nasal cannula in all the time and says that he has had some clots come out. Currently no bleeding. No bruising. No gum bleeding. No other signs of coagulopathy. No trauma. Related Data Home Medications ?Medication ?Instructions ?Recorded ?Confirmed cetirizine 10 mg tablet (Zyrtec) 10 mg PO DAILY 06/19/19 04/13/24 tamsulosin 0.4 mg capsule 0.4 mg PO DAILY 06/19/19 04/13/24 cholecalciferol (vitamin D3) 50 4,000 unit PO DAILY 01/20/22 04/13/24 mcg (2,000 unit) tablet (Vitamin D3) gabapentin 300 mg capsule 300 mg PO TID 01/20/22 04/13/24 fluticasone propionate 50 1 spray intranasal BID PRN Nasal 05/20/22 04/13/24 mcg/actuation nasal Congestion spray,suspension (Flonase Allergy Relief) apixaban 5 mg tablet (Eliquis) 5 mg PO BID 12/02/23 04/13/24 Previous Rx's ?Medication ?Instructions ?Recorded tiotropium 2.5 mcg-olodaterol 2.5 2 puff inhalation DAILY #4 grams 08/07/19 mcg/actuation mist for inhalation (Stiolto Respimat) ezetimibe 10 mg tablet 10 mg PO DAILY #60 tabs 11/03/23 alprazolam 0.5 mg tablet 0.5 mg PO TID PRN anxiety #90 tabs 01/24/24 osimertinib 40 mg tablet (Tagrisso) 80 mg (2 x 40 mg) PO DAILY #56 tabs 02/22/24 oxycodone 10 mg tablet See Rx Instructions PO QID PRN 03/26/24 pain 30 days #150 tabs Allergies Allergy/AdvReac Type Severity Reaction Status Date / Time Penicillins Allergy Severe ALGY-Rash Verified 04/13/24 15:10 Youzoco-NVJ-ApC Reductase Allergy Severe ALGY-Rash Verified 04/13/24 15:10 Inhibitor (Iirklps-Cpv-Qxp Reductase Inhibitor) cefdinir AdvReac rash Verified 04/13/24 15:10 Review of Systems Narrative: Constitutional symptoms: Negative except as documented in HPI. Skin symptoms: Negative except as documented in HPI. Eye symptoms: Negative except as documented in HPI. ENMT symptoms: Negative except as documented in HPI. Respiratory symptoms: Negative except as documented in HPI. Cardiovascular symptoms: Negative except as documented in HPI. Gastrointestinal symptoms: Negative except as documented in HPI. Genitourinary symptoms: Negative except as documented in HPI. Musculoskeletal symptoms: Negative except as documented in HPI. Neurologic symptoms: Negative except as documented in HPI. Psychiatric symptoms: Negative except as documented in HPI. Endocrine symptoms: Negative except as documented in HPI. 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 COPD (chronic obstructive pulmonary disease) HTN (hypertension) Arthritis Allergies Aortic aneurysm History of hepatitis C Surgical History History of cataract extraction Right eye, 2021 H/O colonoscopy 3 yrs ago H/O aortic aneurysm repair H/O circumcision S/P lobectomy of lung H/O hernia repair Family History Father Cancer Family/Other CAD (coronary artery disease) Cancer Grandfather Cancer Mother Brain aneurysm Denies family history of Anesthesia complication Bleeding disorder Social History Smoking and tobacco/nicotine status: former use of tobacco/nicotine (smokeless tobacco) Quit status (tobacco/nicotine): considering quitting Alcohol intake: current Alcohol intake frequency: 0-2 Drinks per Day Alcohol type: beer Substance/Drug Use: never Lives independently: Yes Household members: spouse Marital status: service: Yes Current occupational status: disabled Do you think of yourself as: Straight/Heterosexual Current gender identity: Male Physical Exam Narrative: EXAM NARRATIVE: General: Alert, no acute distress. Skin: Warm, dry. Head: Normocephalic, atraumatic. Neck: Supple, trachea midline. Eye: Extraocular movements are intact. Ears, nose, mouth and throat: mucosa moist. Cardiovascular: Regular, Normal peripheral perfusion. Respiratory: Lungs are clear to auscultation, respirations are non-labored, breath sounds are equal, Symmetrical chest wall expansion. Gastrointestinal: Soft, Nontender, Non distended Musculoskeletal: Normal ROM, no deformity. Neurological: Alert and oriented, No focal neurological deficit observed. Psychiatric: Cooperative, appropriate mood & affect. Course Vital Signs: Vital signs: Vital Signs Temperature 97.7 F 04/13/24 15:04 Pulse Rate 86 04/13/24 18:10 Respiratory Rate 16 04/13/24 18:10 Blood Pressure 103/58 04/13/24 18:10 Pulse Oximetry 97 04/13/24 18:10 Oxygen Delivery Me thod Nasal Cannula 04/13/24 15:04 Oxygen Flow Rate 3 04/13/24 15:04 MDM - Epistaxis Medical Decision Making Lab Review: Laboratory results were reviewed and interpreted by myself the emergency room physician. INR is mildly elevated at 1.4. Platelets are low normal at 179. Patient is slightly more anemic than previous but not to the point that he needs transfused. I reviewed the patient's medical record. Reexamination: Has had no nosebleeding here. We have discussed Afrin and its use over the next few days and that possibly while he is awake if he could run his oxygen into his mouth with his nose that might help as well. Assessment and plan: Epistaxis ?Afrin in the emergency room - Discharged home - Discussed plan with patient. Answered any questions. - Evaluation and treatment of this problem were appropriate in the emergency setting. Lab Data 04/13/24 16:57 04/13/24 16:57 Laboratory Results WBC 4.28 10^3/uL (3.29-11.43) 04/13/24 16:57 RBC 3.44 10^6/uL (3.85-5.65) L 04/13/24 16:57 Hgb 9.60 g/dL (11.27-16.99) L 04/13/24 16:57 Hct 31.3 % (37-53) L 04/13/24 16:57 MCV 91.0 fl (82-101) 04/13/24 16:57 MCH 27.9 pg (27-33) 04/13/24 16:57 MCHC 30.7 g/dL (30-55) 04/13/24 16:57 RDW 15.9 % (12.1-15.1) H 04/13/24 16:57 Plt Count 179 10^3/cmm (157-399) 04/13/24 16:57 MPV 10.5 fL (7.4-10.4) H 04/13/24 16:57 Neut % (Auto) 57.6 % 04/13/24 16:57 Lymph % (Auto) 23.6 % 04/13/24 16:57 [place] % (Auto) 14.5 % 04/13/24 16:57 Eos % (Auto) 3.3 % 04/13/24 16:57 Baso % (Auto) 0.5 % 04/13/24 16:57 Neut # (Auto) 2.47 10^3/uL (1.8-7.7) 04/13/24 16:57 Lymph # (Auto) 1.0 10^3/uL (0.8-4.8) 04/13/24 16:57 [place] # (Auto) 0.6 10^3/uL (0.2-0.9) 04/13/24 16:57 Eos # (Auto) 0.1 10^3/uL (0.0-0.8) 04/13/24 16:57 Baso # (Auto) 0.0 10^3/uL (0.0-0.1) 04/13/24 16:57 Nucleated RBC % (auto) 0 % 04/13/24 16:57 Nucleated RBCs # 0.0 /100WBC 04/13/24 16:57 PT 18.60 SECONDS (12.1-14.9) H 04/13/24 16:57 INR 1.45 (0.8-1.2) H 04/13/24 16:57 APTT 33.5 SECONDS (23.9-36.7) 04/13/24 16:57 Sodium 138 mmol/L (136-145) 04/13/24 16:57 Potassium 4.6 mmol/L (3.5-5.1) 04/13/24 16:57 Chloride 100 mmol/L (98-107) 04/13/24 16:57 Carbon Dioxide 30 mmol/L (22-29) H 04/13/24 16:57 Anion Gap 12.6 (5-19) 04/13/24 16:57 BUN 15 mg/dL (8-23) 04/13/24 16:57 Creatinine 0.9 mg/dL (0.7-1.2) 04/13/24 16:57 GFR Calculation 83.4 mL/min (90-130) L 04/13/24 16:57 Glucose 107 mg/dL (65-115) 04/13/24 16:57 Calculated Osmolality 287 mOsm/kg (285-295) 04/13/24 16:57 Calcium 9.4 mg/dL (8.5-10.5) 04/13/24 16:57 Total Bilirubin 0.2 mg/dL (0.15-1.2) 04/13/24 16:57 AST 23 U/L (0-40) 04/13/24 16:57 ALT 16 U/L (0-41) 04/13/24 16:57 Alkaline Phosphatase 76 U/L (40-130) 04/13/24 16:57 Total Protein 7.9 g/dL (6.6-8.7) 04/13/24 16:57 Albumin 3.7 g/dL (3.5-5.2) 04/13/24 16:57 Globulin 4.2 g/dL (1.3-4.6) 04/13/24 16:57 No radiology studies performed this visit Discharge Plan Discharge Patient Disposition: Home Clinical Impression: Epistaxis, Chronic hypoxemic respiratory failure Condition: Stable Prescriptions: No Action Stiolto Respimat 2.5-2.5 mcg/actuation mist 2 puff INHALATION DAILY Qty: 4 3RF tamsulosin 0.4 mg capsule 0.4 mg PO DAILY cetirizine [Zyrtec] 10 mg tablet 10 mg PO DAILY gabapentin 300 mg capsule 300 mg PO TID fluticasone propionate [Flonase Allergy Relief] 50 mcg/actuation spray,suspension 1 spray INTRANASAL BID PRN (Reason: Nasal Congestion) Rx Instructions: administer into each nostril ezetimibe 10 mg tablet 10 mg PO DAILY Qty: 60 0RF alprazolam 0.5 mg tablet 0.5 mg PO TID PRN (Reason: anxiety) Qty: 90 3RF Tagrisso 40 mg tablet 80 mg PO DAILY Qty: 56 2RF oxycodone 10 mg tablet See Rx Instructions PO QID PRN (Reason: pain) 30 Days Qty: 150 0RF Rx Instructions: 1-2 tablets PO four times daily PRN; cholecalciferol (vitamin D3) [Vitamin D3] 50 mcg (2,000 unit) tablet 4,000 unit PO DAILY Eliquis 5 mg tablet 5 mg PO BID Discharge Orders: Discharge ED (Routine); Ordered 04/13/24 Ordered By: Sara Curry Referrals: Sridevi Campbell APRN [Primary Care Provider] - Discharge Diet: Usual diet Discharge Activity: Increase activity as tolerated Patient Instructions: Nosebleed (ED), Opioid Safety, Pain Management Activity Restrictions/Additional Instructions: You can use Afrin if your nose starts to bleed up to every 2 hours over the next 48 hours, but do not exceed 48 hours of use. Thank you for choosing [facility] for your healthcare needs today. Please realize this is an emergency room and that we are providing you with a medical screening exam and this may not be complete and all inclusive of all the testing and or work up that you may need to determine your ailment or severity of your illness. You have been screened and evaluated and felt safe for discharge. Health conditions do change or evolve sometimes and as such it is important that you follow up with your Primary Doctor to be re checked, 3-5 days is a general good time frame for follow up. You are always welcome to return to the ED for re assessment if your symptoms are worsening or you have new concerns Print Language: Albanian Coding Level of Care Code ED Business Project Analyst for Micah Vizcaino
[2024-04-13] MEDS: oxymetazoline 0.05% Nasal Spray 15 mL 2 SPRAY NOSTRIL-B (17:14)
[2024-04-13 17:16] VITALS: BP 104/60; PULSE 81; RESP 16; O2SAT 93
[2024-04-13 17:26] LABS: Basophils % 0.5 %; Eosinophils # 0.1 10^3/uL (0.0-0.8); Eosinophils % 3.3 %; Hematocrit 31.3 % (37-53); Lymphocytes % 23.6 %; Mean Corpuscular HGB Conc 30.7 g/dL (30-55); Mean Corpuscular Hemoglobin 27.9 pg (27-33); Mean Platelet Volume 10.5 fL (7.4-10.4); Monocytes # 0.6 10^3/uL (0.2-0.9); Monocytes % 14.5 %; Neutrophils # 2.47 10^3/uL (1.8-7.7); Neutrophils % 57.6 %; Nucleated Red Blood Cells % 0 %; Platelet Count 179 10^3/cmm (157-399); Red Blood Count 3.44 10^6/uL (3.85-5.65); Red Cell Distribution Width 15.9 % (12.1-15.1); White Blood Count 4.28 10^3/uL (3.29-11.43)
[2024-04-13 17:33] VITALS: BP 94/55; O2SAT 95
[2024-04-13 17:38] LABS: INR 1.45 (0.8-1.2)
[2024-04-13 17:39] LABS: Partial Thromboplastin Time 33.5 SECONDS (23.9-36.7)
[2024-04-13 17:45] LABS: Alanine Aminotransferase 16 U/L (0-41); Albumin Level 3.7 g/dL (3.5-5.2); Alkaline Phosphatase 76 U/L (40-130); Anion Gap 12.6 (5-19); Aspartate Amino Transferase 23 U/L (0-40); Blood Urea Nitrogen 15 mg/dL (8-23); Calcium 9.4 mg/dL (8.5-10.5); Carbon Dioxide 30 mmol/L (22-29); Chloride 100 mmol/L (98-107); Creatinine Clr Calc Pharmacy 74.7129; Globulin 4.2 g/dL (1.3-4.6); Glomerular Filtration Rate 83.4 mL/min (90-130); Glucose 107 mg/dL (65-115); Osmolality Calculated 287 mOsm/kg (285-295); Potassium 4.6 mmol/L (3.5-5.1); Sodium 138 mmol/L (136-145); Total Bilirubin 0.2 mg/dL (0.15-1.2); Total Protein 7.9 g/dL (6.6-8.7)
[2024-04-13 18:10] VITALS: BP 103/58; PULSE 86; RESP 16; O2SAT 97
== END 2024-04-13 18:11 | disposition home or self-care (01) ==
PROVIDERS: Emergency Provider Emergency Medicine; PCP Nurse Practitioner Family
DX: R04.0 Epistaxis (principal); J96.11 Chronic respiratory failure with hypoxia; Z79.01 Long term (current) use of anticoagulants; Z87.891 Personal history of nicotine dependence; J44.9 Chronic obstructive pulmonary disease, unspecified; I10 Essential (primary) hypertension; E78.5 Hyperlipidemia, unspecified
CPT/HCPCS: 36415; 80053; 85025; 85610; 85730; 99283

== ENCOUNTER → 2024-05-17 12:52 | Outpatient (BNVA) | payer OTHER, SELFPAY | PROVIDERS: PCP Nurse Practitioner Family; Visit Provider Nurse Practitioner Family | DX: L82.1 Other seborrheic keratosis (principal) | CPT/HCPCS: 11102; 17000; 99213 ==

== ENCOUNTER 2024-05-29 14:17 | Oncology outpatient (recurring) (ONCR) | payer OTHER, SELFPAY | END 2024-06-06 23:59 | disposition home or self-care (01) | PROVIDERS: PCP Nurse Practitioner Family; Visit Provider Internal Medicine Medical Oncology | DX: Z45.2 Encounter for adjustment and management of vascular access device (principal) ==

== ENCOUNTER 2024-06-25 14:12 | Inpatient (IN) | payer OTHER, SELFPAY ==
[2024-06-25] VITALS (8 sets, daily range): BP systolic 94–118; BP diastolic 45–65; PULSE 90–99; RESP 16–18; TEMP 36.7–36.8; O2SAT 92–95; BMI 23.1
--- NOTE | 2024-06-25 14:22 | XRR_ITS ---
PROCEDURE INFORMATION: Exam: XR Chest Exam date and time: 06/25/2024 2:28 PM Age: 68 years old Clinical indication: Shortness of breath; Prior surgery; Surgery date: 6+ months; Surgery type: Left lung; HX of lung cancer; Additional info: SOB TECHNIQUE: Imaging protocol: Radiologic exam of the chest. Views: 1 view. COMPARISON: [place] wo/w [id number] 04/27/2024 12:34 PM FINDINGS: Tubes, catheters and devices: Left chest port terminates in the mid SVC. Lungs: Consolidations in the right hilar region and left lung base. Pleural spaces: Unremarkable. No pleural effusion. No pneumothorax. Heart/Mediastinum: Unremarkable. No cardiomegaly. Bones/joints: Unremarkable. XR/XR chest 1V portable [id number] IMPRESSION: Consolidations in the right hilum and left lung base. Findings are suspicious for multifocal pneumonia. Radiographic follow-up to resolution is recommended.
--- NOTE | 2024-06-25 14:22 | ECG_ITS ---
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 Measurements Intervals [place] Rate: 86 P: 70 OK: 180 QRS: -26 QRSD: 129 T: 48 QT: 364 QTc: 437 Interpretive Statements SINUS RHYTHM RIGHT BUNDLE BRANCH BLOCK [120+ ms QRS DURATION, UPRIGHT V1, 40+ ms S IN I/aVL/V4/V5/V6] POSSIBLE ANTERIOR MYOCARDIAL INFARCTION , OF INDETERMINATE AGE [30 ms Q WAVE IN V3/V4, OR R < 0.2 mV IN V4] INTERPRETATION BASED ON A DEFAULT AGE OF 40 YEARS Compared to ECG 02/20/2024 15:10:26 No significant changes Electronically Signed On 06-26-2024 06:21:37 CDT by Jaison Winters M.D. [email or web address]
[2024-06-25 15:25] LABS: Basophils % 0.3 %; Eosinophils % 0.1 %; Lymphocytes # 1.5 10^3/uL (0.8-4.8); Lymphocytes % 10.9 %; Mean Corpuscular HGB Conc 31.1 g/dL (30-55); Mean Corpuscular Hemoglobin 28.2 pg (27-33); Mean Corpuscular Volume 90.7 fl (82-101); Mean Platelet Volume 12.5 fL (7.4-10.4); Monocytes # 0.8 10^3/uL (0.2-0.9); Monocytes % 5.4 %; Neutrophils # 11.59 10^3/uL (1.8-7.7); Neutrophils % 82.8 %; Nucleated Red Blood Cells % 0 %; Platelet Count 173 10^3/cmm (157-399); Red Blood Count 3.86 10^6/uL (3.85-5.65); Red Cell Distribution Width 15.2 % (12.1-15.1); White Blood Count 13.99 10^3/uL (3.29-11.43)
--- NOTE | 2024-06-25 16:23 | ED_ITS ---
HPI - SOB/Dyspnea 2 General: Chief Complaint: Shortness of Breath/Dyspnea Stated Complaint: sob Time Seen by Provider: 06/25/24 16:19 Source: patient Mode of arrival: ambulatory Limitations: no limitations History of Present Illness: HPI Narrative: 68-year-old male has a history of lung c ancer states that he has a history of getting pneumonia concerned he has pneumonia he states over the last 3 days has had increasing cough that is productive along with low-grade fevers and increasing shortness of breath. He does wear 3 L at baseline at home is on 3 L here. He denies any chest pains Associated symptoms: Reports fever(s); Deny abdominal pain, chest pain, nausea or vomiting Related Data Home Medications ?Medication ?Instructions ?Recorded ?Confirmed cetirizine 10 mg tablet (Zyrtec) 10 mg PO DAILY 04/13/24 tamsulosin 0.4 mg capsule 0.4 mg PO DAILY 06/19/1908/31 cholecalciferol (vitamin D3) 50 4,000 unit PO DAILY 04/13/24 mcg (2,000 unit) tablet (Vitamin D3) gabapentin 300 mg capsule 300 mg PO TID 01/20/2204/13 fluticasone propionate 50 1 spray intranasal BID PRN N matthew 05/20/22 04/13/24 mcg/actuation nasal Congestion spray,suspension (Flonase Allergy Relief) apixaban 5 mg tablet (Eliquis) 5 mg PO BID 12/02/23 Previous Rx's ?Medication ?Instructions ?Recorded tiotropium 2.5 mcg-olodaterol 2.5 2 puff inhalation [place] #4 grams 08/07/19 mcg/actuation mist for inhalation (Stiolto Respimat) ezetimibe 10 mg tablet 10 mg PO DAILY #60 tabs 10/09 07/31 alprazolam 0.5 mg tablet 0.5 mg PO TID PRN anxiety #9 0 tabs 05/25/24 oxycodone 10 mg tablet 10 mg PO QID PRN pain 30 day s #180 05/25/24 tabs osimertinib 40 mg tablet (Tagrisso) 80 mg (2 x 40 mg) PO DAILY #56 tabs 05/29/24 Allergies Allergy/AdvReac Type Severity Reaction Status Date / Time Penicillins Allergy Severe ALGY-Rash Verified 06/25/24 14:22 [place]-CSB-YkD Reductase Allergy Severe ALGY-Rash Verified 06/25/24 14:22 Inhibitor (Vxxnvrp-Wpy-Bew Reductase Inhibitor) cefdinir AdvReac rash Verified 06/25/24 14:22 Review of Systems 2 Const: Reports: fever(s); Denies: chills, body aches or change in appetite ENMT: Denies: throat pain or dental pain Card: Denies: chest pain Resp: Reports: dyspnea and productive cough GI: Denies: abdominal pain, nausea, vomiting or diarrhea Musc: Denies: neck pain or back pain Skin/Breast: Denies: rash Neuro: Denies: headache(s) PFSH ED 2 PFSH: Medical History Chronic hypoxic respiratory failure Acute exacerbation of chronic obstructive pulmonary disease Acute hypoxic respiratory failure Community acquired pneumonia Malignant neoplasm of right main bronchus Hepatocellular carcinoma Pulmonary embolism Chronic anxiety PTSD (post-traumatic stress disorder) Dyslipidemia Coronary artery disease History of nonmelanoma skin cancer Lung cancer metastatic to brain COPD (chronic obstructive pulmonary disease) HTN (hypertension) Arthritis Allergies Aortic aneurysm History of hepatitis C Surgical History History of cataract extraction Right eye, 2021 H/O colonoscopy 3 yrs ago H/O aortic aneurysm repair H/O circumcision S/P lobectomy of lung H/O hernia repair Family History Father Cancer Family/Other CAD (coronary artery disease) Cancer Grandfather Cancer Mother Brain aneurysm Denies family history of Anesthesia complication Bleeding disorder Social History Smoking and tobacco/nicotine status: former use of tobacco/nicotine Quit status (tobacco/nicotine): considering quitting Alcohol intake: current Alcohol intake frequency: 0-2 Drinks per Day Alcohol type: beer Substance/Drug Use: never Lives independently: Yes Household members: spouse Marital status: service: Yes Current occupational status: disabled Do you think of yourself as: Straight/Heterosexual Current gender identity: Male Physical Exam 2 Const: COMMON NORMALS: patient oriented x3 GENERAL APPEARANCE: ill appearing HENMT: COMMON NORMALS: normocephalic and atraumatic HEAD & SCALP: n ormocephalic and atraumatic Eye: COMMON NORMALS: conjunctivae normal CONJUNCTIVA: Yes conjunctivae normal Neck/C-Spine: COMMON NORMALS: full ROM and supple Chest: COMMONS NORMALS: normal inspection of the chest Resp: COMMON NORMALS: No retractions and No use of accessory muscles A USCULTATION: rales Cardio: COMMON NORMALS: regular rate, regular rhythm and No murmurs present (Cardio) RATE: regular rate RHYTHM: regular rhythm Extremity: COMMON NORMALS: normal to inspection and full ROM Neuro: COMMON NORMALS: patient oriented x3, moves all extremities and no focal motor deficits Psych: COMMON NORMALS: mental status grossly normal, Normal thought process present and cooperative THOUGHT PROCESS: Normal thought process present Skin: COMMON NORMALS: no rashes or lesions noted and no wounds GENERAL SKIN EXAM: no rashes or lesions noted Course 2 Vital Signs: Vital signs: Vital Signs Temperature 98.1 F 06/25/24 14:13 Pulse Rate 90 06/25/24 17:09 Respiratory Rate 18 06/25/24 17:09 Blood Pressure 94/52 06/25/24 14:13 Pulse Oximetry 95 06/25/24 17:09 Oxygen Delivery Me thod Nasal Cannula 06/25/24 17:09 Oxygen Flow Rate 3 06/25/24 17:09 MDM - SOB/Dyspnea Medical Decision Making Patient presents here with shortness of breath along with cough he is found to have pneumonia slightly elevated white count blood pressures here been normal no signs of sepsis I spoke to hospitalist will admit at this time Medical Records I reviewed the patient's medical records. Lab Data I reviewed the patient's lab results. 06/25/24 15:13 06/25/24 16:45 Labs/Radiology: Radiology Impressions Chest X-Ray 06/25/24 14:22 IMPRESSION: Consolidations in the right hilum and left lung base. Findings are suspicious for multifocal pneumonia. Radiographic follow-up to resolution is recommended. Laboratory Results WBC 13.99 10^3/uL (3.29-11.43) H 06/25/24 15:13 RBC 3.86 10^6/uL (3.85-5.65) 06/25/24 15:13 Hgb 10.90 g/dL (11.27-16.99) L 06/25/24 15:13 Hct 35.0 % (37-53) L 06/25/24 15:13 MCV 90.7 fl (82-101) 06/25/24 15:13 MCH 28.2 pg (27-33) 06/25/24 15:13 MCHC 31.1 g/dL (30-55) 06/25/24 15:13 RDW 15.2 % (12.1-15.1) H 06/25/24 15:13 Plt Count 173 10^3/cmm (157-399) 06/25/24 15:13 MPV 12.5 fL (7.4-10.4) H 06/25/24 15:13 Neut % (Auto) 82.8 % 06/25/24 15:13 Lymph % (Auto) 10.9 % 06/25/24 15:13 [place]th[place]omew % (Auto) 5.4 % 06/25/24 15:13 Eos % (Auto) 0.1 % 06/25/24 15:13 Baso % (Auto) 0.3 % 06/25/24 15:13 Neut # (Auto) 11.59 10^3/uL (1.8-7.7) H 06/25/24 15:13 Lymph # (Auto) 1.5 10^3/uL (0.8-4.8) 06/25/24 15:13 Bartholomew # (Auto) 0.8 10^3/uL (0.2-0.9) 06/25/24 15:13 Eos # (Auto) 0.0 10^3/uL (0.0-0.8) 06/25/24 15:13 Baso # (Auto) 0.0 10^3/uL (0.0-0.1) 06/25/24 15:13 Nucleated RBC % (auto) 0 % 06/25/24 15:13 Nucleated RBCs # 0.0 /100WBC 06/25/24 15:13 PT 18.70 SECONDS (12.1-14.9) H 06/25/24 16:02 INR 1.46 (0.8-1.2) H 06/25/24 16:02 Sodium 134 mmol/L (136-145) L 06/25/24 16:45 Potassium 4.6 mmol/L (3.5-5.1) 06/25/24 16:45 Chloride 97 mmol/L (98-107) L 06/25/24 16:45 Carbon Dioxide 24 mmol/L (22-29) 06/25/24 16:45 Anion Gap 17.6 (5-19) 06/25/24 16:45 BUN 22 mg/dL (8-23) 06/25/24 16:45 Creatinine 1.5 mg/dL (0.7-1.2) H 06/25/24 16:45 GFR Calculation 46.3 mL/min (90-130) L 06/25/24 16:45 Glucose 99 mg/dL (65-115) 06/25/24 16:45 Calculated Osmolality 281 mOsm/kg (285-295) L 06/25/24 16:45 Calcium 9.2 mg/dL (8.5-10.5) 06/25/24 16:45 Total Bilirubin 0.5 mg/dL (0.15-1.2) 06/25/24 16:45 AST 22 U/L (0-40) 06/25/24 16:45 ALT 12 U/L (0-41) 06/25/24 16:45 Alkaline Phosphatase 78 U/L (40-130) 06/25/24 16:45 NT-Pro-B Natriuret Pep 2146 pg/mL (0-125) H 06/25/24 16:45 Total Protein 8.2 g/dL (6.6-8.7) 06/25/24 16:45 Albumin 3.6 g/dL (3.5-5.2) 06/25/24 16:45 Globulin 4.6 g/dL (1.3-4.6) 06/25/24 16:45 All radiology interpretation(s) finalized by discharge Discharge Plan Discharge Patient Disposition: Admitted As Inpatient Clinical Impression: Community acquired pneumonia Condition: Stable Coding Level of Care Code ED Drilling Foreman for Micah Vizcaino
[2024-06-25 16:34] LABS: INR 1.46 (0.8-1.2)
[2024-06-25] MEDS: ipratropium-albuterol 3 mL Neb INHALATION (17:08)
[2024-06-25 17:32] LABS: Alanine Aminotransferase 12 U/L (0-41); Albumin Level 3.6 g/dL (3.5-5.2); Alkaline Phosphatase 78 U/L (40-130); Aspartate Amino Transferase 22 U/L (0-40); Blood Urea Nitrogen 22 mg/dL (8-23); Calcium 9.2 mg/dL (8.5-10.5); Carbon Dioxide 24 mmol/L (22-29); Chloride 97 mmol/L (98-107); Creatinine Clr Calc Pharmacy 44.2397; Globulin 4.6 g/dL (1.3-4.6); Glomerular Filtration Rate 46.3 mL/min (90-130); Glucose 99 mg/dL (65-115); NT Pro B Type Natriuretic Pept 2146 pg/mL (0-125); Osmolality Calculated 281 mOsm/kg (285-295); Sodium 134 mmol/L (136-145); Total Bilirubin 0.5 mg/dL (0.15-1.2); Total Protein 8.2 g/dL (6.6-8.7)
[2024-06-25 17:38] LABS: Anion Gap 17.6 (5-19); Potassium 4.6 mmol/L (3.5-5.1)
--- NOTE | 2024-06-25 18:08 | P.HP_ITS ---
Providers/Chief Complaint 2 Admitting Physician: Dionisio Rollins MD Primary Care Provider: Sridevi Campbell APRN Chief Complaint: sob History of Present Illness Satish Fry is a 68 year old male who comes in with could not breathe last night and this morning. States that he took his oxygen off to change his shirt and get dressed and oxygen dropped from 90% to 76%. Typically he is on 3 L/min since his lung cancer recurred 4 years ago. He states he initially had lung cancer resection for a lobe of his lung 10 to 11 years ago. He had a recurrence and underwent chemo and radiation 4 years ago. He quit smoking 2 years ago. He has had fevers chills yesterday with cough productive of green phlegm. He denies chest pain Patient also has a history of liver cancer treated with chemo and radiation and implanted beads 2 years ago. He states his liver is scarred down. He states that lung cancer still has a small mass that they are following. He has CAT scans every 6 months and his last PET scan was about [address] Grissom retired and he now will see Dr. Marshall Review of Systems 2 Narrative: General Positive for fevers chills. Patient has lost 60 pounds in 1 year I will come back and talk to the Cardiovascular no chest pain he did have an [place] 1998 distal artery no stents Respiratory positive for cough green phlegm no blood GI no nausea vomiting diarrhea constipation positive for urinary hesitancy with current illness as well as dribbling and urinary incontinence. He states this is typically not a problem for incontinence but he does have frequency Neuro no seizures or strokes Malignancy see above Medications/Allergies Home Medications ?Medication ?Instructions ?Recorded ?Confirmed ?Last Taken ?Type cetirizine 10 mg tablet (Zyrtec) 10 mg PO DAILY 04/13/24 04/13/24 History tamsulosin 0.4 mg capsule 0.4 mg PO DAILY 06/19/1908/3104/13/24 History tiotropium 2.5 mcg-olodaterol 2.5 2 puff inhalation DA MOISÉS #4 grams 08/07/19 04/13/24 04/13/24 Rx mcg/actuation mist for inhalation (Stiolto Respimat) cholecalciferol (vitamin D3) 50 4,000 unit PO DAILY 04/13/24 04/13/24 History mcg (2,000 unit) tablet (Vitamin D3) gabapentin 300 mg capsule 300 mg PO TID 01/20/2204/1304/13/24 History fluticasone propionate 50 1 spray intranasal BID PRN N matthew 05/20/22 04/13/24 04/13/24 History mcg/actuation nasal Congestion spray,suspension (Flonase Allergy Relief) ezetimibe 10 mg tablet 10 mg PO DAILY #60 tabs 10/0904/13/24 04/13/24 Rx apixaban 5 mg tablet (Eliquis) 5 mg PO BID 12/02/2304/13/24 History alprazolam 0.5 mg tablet 0.5 mg PO TID PRN anxiety #9 0 tabs 05/25/24 Unknown Rx oxycodone 10 mg tablet 10 mg PO QID PRN pain 30 day s #180 05/25/24 Unknown Rx tabs osimertinib 40 mg tablet (Tagrisso) 80 mg (2 x 40 mg) PO DAILY #56 tabs 05/29/24 Unknown Rx Allergies Allergy/AdvReac Type Severity Reaction Status Date / Time Penicillins Allergy Severe ALGY-Rash Verified 06/25/24 14:22 Kntddms-EML-OwU Reductase Allergy Severe ALGY-Rash Verified 06/25/24 14:22 Inhibitor (Pftgfwn-Lvn-Uhm Reductase Inhibitor) cefdinir AdvReac rash Verified 06/25/24 14:22 PFSH Acute 2 PFSH: Medical History Chronic hypoxic respiratory failure Acute exacerbation of chronic obstructive pulmonary disease Acute hypoxic respiratory failure Community acquired pneumonia Malignant neoplasm of right main bronchus Hepatocellular carcinoma Pulmonary embolism Chronic anxiety PTSD (post-traumatic stress disorder) Dyslipidemia Coronary artery disease History of nonmelanoma skin cancer Lung cancer metastatic to brain COPD (chronic obstructive pulmonary disease) HTN (hypertension) Arthritis Allergies Aortic aneurysm History of hepatitis C Surgical History History of cataract extraction Right eye, 2021 H/O colonoscopy 3 yrs ago H/O aortic aneurysm repair H/O circumcision S/P lobectomy of lung H/O hernia repair Family History Father Cancer Family/Other CAD (coronary artery disease) Cancer Grandfather Cancer Mother Brain aneurysm Denies family history of Anesthesia complication Bleeding disorder Social History (Updated 06/25/24 @ 18:14 by Dionisio Rollins MD) Smoking and tobacco/nicotine status: former use of tobacco/nicotine Quit status (tobacco/nicotine): considering quitting Alcohol intake: current Alcohol intake frequency: 0-2 Drinks per Day Alcohol type: beer Substance/Drug Use: former Date of last use: Many years ago Former substance use details: LSD, Speed, weed Additional social history: Patient is he wants DO NOT RESUSCITATE status would not want to live on a machine Lives independently: Yes Household members: spouse Marital status: service: Yes Current occupational status: disabled 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 Do you think of yourself as: Straight/Heterosexual Current gender identity: Male Vitals/I&O/Wt Last Vital Signs Temp 98.1 F 06/25/24 14:13 Pulse 90 06/25/24 17:09 Resp 18 06/25/24 17:09 BP 94/52 06/25/24 14:13 Pulse Ox 95 06/25/24 17:09 O2 Del Method Nasal Cannula 06/25/24 17:09 O2 Flow Rate 3 06/25/24 17:09 Weight last 48 hrs Weight 68.039 kg Physical Exam 2 Narrative: General well-developed well-nourished male in no acute cardiopulmonary distress but he does have occasional coughing moist sounding CV regular rate and rhythm Lungs clear except for left lung with some end expiratory squeaks Abdomen positive bowel sounds soft Calves no tenderness pretibial edema Neck carotid upstrokes normal no masses Mentation alert and orient x 3 Skin not diaphoretic Data 06/25/24 15:13 06/25/24 16:45 Micro: Microbiology 06/25/24 16:46 Blood Culture - Preliminary Blood SPECIMEN COLLECTED 06/25/24 16:45 Blood Culture - Preliminary Blood SPECIMEN COLLECTED A&P Assessment and plan (1) Community acquired pneumonia: Start Levaquin 750 mg daily due to penicillin and cefdinir allergy start steroids and guaifenesin (2) Malignant neoplasm of right main bronchus: Monitor for hemoptysis. Weight loss is concerning (3) Hepatocellular carcinoma: As above patient's weight loss is concerning follow-up with oncology (4) Pulmonary embolism: Continue Eliquis PDMP PDMP Reviewed: Not Reviewed Attestations 2 Medical Necessity Statement*: Patient will be admitted to hospital for IV antibiotics steroids nebulizer treatments and I anticipate that his hospitalization will last 2 midnights Coding Level of Care Code 88968 Diagnoses Community acquired pneumonia J18.9 Malignant neoplasm of right main bronchus C34.01 Hepatocellular carcinoma C22.0 Pulmonary embolism I26.99 Time Spent (min) 70
[2024-06-25] MEDS: levofloxacin-dextrose 5 % 750 MG/150 ML PREMIX 100 MG IV (18:30)
[2024-06-25] MEDS: sodium chloride 0.9% 1,000 ML 75 ML IV (20:04)
--- OUTSIDE RECORDS SUMMARY | 2024-06-25 20:41 | XMS_ITS | Patient Health Record ---
Author Organization [facility] Address [address] [place] [address] Care Team Providers Care Wool Classer Name Role Phone Ajay Singletary Primary Care Provider [phone] Reason For Referral No Information Medications Medication SIG (Take, Route, Frequency, Duration) Notes [...] [Suprep Bowel Prep Kit] 08/08/2015 0 Active Plan Of Treatment No Information
[2024-06-25] MEDS: dexamethasone 4 mg Tablet PO (21:06)
[2024-06-25] MEDS: apixaban 5 mg Tablet PO (21:06)
[2024-06-25] MEDS: oxyCODONE 5 mg IR Tab/Cap 10 MG PO (21:07)
[2024-06-25] MEDS: gabapentin 300 mg Capsule PO (21:07)
[2024-06-26] VITALS (11 sets, daily range): BP systolic 94–120; BP diastolic 51–63; PULSE 65–110; RESP 16–18; TEMP 36.5–36.6; O2SAT 93–98
[2024-06-26 03:07] LABS: Basophils % 0.1 %; Eosinophils % 0.1 %; Hematocrit 32.9 % (37-53); Lymphocytes # 0.6 10^3/uL (0.8-4.8); Lymphocytes % 6.7 %; Mean Corpuscular Hemoglobin 27.8 pg (27-33); Mean Corpuscular Volume 89.6 fl (82-101); Mean Platelet Volume 10.3 fL (7.4-10.4); Monocytes # 0.2 10^3/uL (0.2-0.9); Monocytes % 2.5 %; Neutrophils # 7.35 10^3/uL (1.8-7.7); Neutrophils % 90.2 %; Nucleated Red Blood Cells % 0 %; Platelet Count 150 10^3/cmm (157-399); Red Blood Count 3.67 10^6/uL (3.85-5.65); Red Cell Distribution Width 14.6 % (12.1-15.1); White Blood Count 8.15 10^3/uL (3.29-11.43)
[2024-06-26 03:40] LABS: Blood Urea Nitrogen 20 mg/dL (8-23); Carbon Dioxide 24 mmol/L (22-29); Chloride 102 mmol/L (98-107); Creatinine Clr Calc Pharmacy 55.6672; Glomerular Filtration Rate 59.9 mL/min (90-130); Glucose 154 mg/dL (65-115); Osmolality Calculated 288 mOsm/kg (285-295); Sodium 136 mmol/L (136-145)
[2024-06-26 03:44] LABS: Anion Gap 15.4 (5-19); Potassium 5.4 mmol/L (3.5-5.1)
[2024-06-26] MEDS: levoFLOXacin 500 mg Tablet PO (05:17)
[2024-06-26] MEDS: ezetimibe 10 mg Tablet PO (07:56)
[2024-06-26] MEDS: dexamethasone 4 mg Tablet PO ×2 (07:57→17:00)
[2024-06-26] MEDS: gabapentin 300 mg Capsule PO ×3 (07:57→20:54)
[2024-06-26] MEDS: cetirizine 10 mg Tablet PO (07:57)
[2024-06-26] MEDS: apixaban 5 mg Tablet PO ×2 (07:57→17:00)
[2024-06-26] MEDS: guaiFENesin 600 mg Tablet 1200 MG PO ×2 (07:57→17:00)
[2024-06-26] MEDS: sodium chloride 0.9% 1,000 ML 75 ML IV ×2 (07:59→20:55)
[2024-06-26] MEDS: ipratropium-albuterol 3 mL Neb INHALATION ×4 (08:19→20:29)
--- NOTE | 2024-06-26 09:06 | PC.PHAR ---
[facility]
--- OUTSIDE RECORDS SUMMARY | 2024-06-26 09:40 | XMS_ITS | Patient Health Record ---
Author Organization [facility] Address [address] [place] [address] Care Team Providers Care Demand Generation Manager Name Role Phone Ajay Singletary Primary Care Provider Reason For Referral No Information Medications Medication [...]
--- NOTE | 2024-06-26 10:12 | PC.CHAP ---
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 engineering coop visit [] Patient/Family/Request visit [] Outpatient visit [] Follow-up visit [] Physician referral [] Code/Alert [x] Routine visit [] Staff referral [] Actively dying [] Patient sleeping [] Family support [] [] Out of room [] Palliative care [] [] Receiving care in room [] Pre-surgical visit [] Trauma [] Long length of stay [] ICU visit [] Other: Relational/Emotional Strength [x] Patient feels connected with others/family/visitors/staff [] Distress [] Loneliness/isolation [] Abandonment Spirituality of Patient [x] Person of Sherrie [] Attends Sabianist of their Sherrie [x] Believes in Prayer [] Reads Bible or Rastafari materials [] There are Spiritual issues to be addressed Supervisor [employer] Interventions [x] Prayer [x] Active listening [] Non-anxious presence [x] Spiritual/emotional support [] Crisis/trauma care [] Spiritual counseling [] Bereavement support [] Provided bereavement packet [] Provided Bible/devotional materials [] Provided toy/stuffed animal, coloring book to patient or family member [] Provided Communion [] Anointing/[place] [] Salvation [x] Completed spiritual assessment [] Other: Impact on Illness or Injury [] Angry [] Fearful [] Anxious [] Often cries [] Exhaustion [] Unable to work [] Unable to attend christian [] Unable to walk/stand [] Unable to read [] Unable to drive [] Unable to eat/drink [] Unable to sleep [] Unable to be with family [] Patient intubated [] Other: Summary Time spent with patient 5 min
[2024-06-26] MEDS: oxyCODONE 5 mg IR Tab/Cap 10 MG PO ×2 (11:19→17:00)
--- NOTE | 2024-06-26 12:39 | P.PN_ITS ---
Subjective 2 Subjective: 68-year-old male admitted with bilateral pneumonia right perihilar and left lower lung states he is breathing much better. He is on 3 L of oxygen now which is his baseline. Cough is productive of yellow and green phlegm but less than yesterday. Vitals/I&O/Wt Last Vital Signs Temp 97.8 F 06/26/24 12:00 Pulse 110 H 06/26/24 12:00 Resp 17 06/26/24 12:00 BP 118/60 06/26/24 12:00 Pulse Ox 93 06/26/24 12:00 O2 Del Method Nasal Cannula 06/26/24 12:00 O2 Flow Rate 3 06/26/24 11:06 06/25/24 06/26/24 06/26/24 22:59 06:59 14:59 Intake Total 220 / 220 120 / 340 1253.75 / 1253.75 Output Total 850 / 850 525 / 525 Balance 220 / 220 -730 / -510 728.75 / 728.75 Weight last 48 hrs Weight 69.354 kg Weight 69.173 kg Weight 68.039 kg Physical Exam 2 Narrative: General well-developed well-nourished male in no acute cardiopulmonary distress but he does have occasional coughing moist sounding CV regular rate and rhythm Lungs clear Abdomen positive bowel sounds soft Calves no tenderness or pretibial edema Mentation alert and orient x 3 Skin not diaphoretic Data 06/26/24 03:00 06/26/24 03:00 Micro: Microbiology 06/25/24 16:46 Blood Culture - Preliminary Blood SPECIMEN COLLECTED 06/25/24 16:45 Blood Culture - Preliminary Blood SPECIMEN COLLECTED A&P Assessment and plan (1) Community acquired pneumonia: Started Levaquin 750 mg daily due to penicillin and cefdinir allergy start steroids and guaifenesin Due to mildly decreased renal function and mild hyperkalemia I am going to decrease the Levaquin to 500 mg daily (2) Malignant neoplasm of right main bronchus: Monitor for hemoptysis. Weight loss is concerning (3) Hepatocellular carcinoma: As above patient's weight loss is concerning follow-up with oncology (4) Pulmonary embolism: Continue Eliquis (5) Acute kidney failure: potassium 5.4 today up from 4.6 despite no replacement. I am going to increase the saline rate to 125 cc an hour. Recheck mini panel in the morning. I checked his fluids to make sure it did not contain potassium by mistake PDMP PDMP Reviewed: Not Reviewed Attestations 2 Medical Necessity Statement*: 1 more night in the hospital and anticip ate discharge tomorrow Coding Level of Care Code 23507 Diagnoses Community acquired pneumonia J18.9 Malignant neoplasm of right main bronchus C34.01 Hepatocellular carcinoma C22.0 Pulmonary embolism I26.99 Acute kidney failure N17.9 Time Spent (min) 25
[2024-06-26] MEDS: tamsulosin 0.4 mg Capsule PO (17:00)
[2024-06-26] MEDS: ALPRAZolam 0.5 mg Tablet PO (20:54)
[2024-06-27] VITALS (8 sets, daily range): BP systolic 103–121; BP diastolic 54–65; PULSE 84–117; RESP 16–18; TEMP 36.3–36.7; O2SAT 91–98
[2024-06-27] MEDS: levoFLOXacin 500 mg Tablet PO (05:42)
[2024-06-27] MEDS: tamsulosin 0.4 mg Capsule PO (07:49)
[2024-06-27] MEDS: guaiFENesin 600 mg Tablet 1200 MG PO (07:49)
[2024-06-27] MEDS: ezetimibe 10 mg Tablet PO (07:50)
[2024-06-27] MEDS: apixaban 5 mg Tablet PO (07:50)
[2024-06-27] MEDS: dexamethasone 4 mg Tablet PO (07:50)
[2024-06-27] MEDS: gabapentin 300 mg Capsule PO (07:50)
[2024-06-27] MEDS: cetirizine 10 mg Tablet PO (07:51)
[2024-06-27 08:26] LABS: Anion Gap 16.2 (5-19); Blood Urea Nitrogen 20 mg/dL (8-23); Carbon Dioxide 23 mmol/L (22-29); Chloride 107 mmol/L (98-107); Creatinine Clr Calc Pharmacy 66.8889; Glomerular Filtration Rate 73.9 mL/min (90-130); Glucose 139 mg/dL (65-115); Osmolality Calculated 299 mOsm/kg (285-295); Potassium 4.2 mmol/L (3.5-5.1); Sodium 142 mmol/L (136-145)
--- NOTE | 2024-06-27 09:59 | P.DS_ITS ---
Discharge Providers Date of Admission: 06/25/24 18:09 Date of Discharge: June 27, 2024 Attending Provider at Admission: Dionisio Rollins MD Attending Provider at Discharge: Dionisio Rollins MD Primary Care Provider: Sridevi Campbell APRN Diagnoses at Discharge Discharge Diagnosis (1) Community acquired pneumonia: Details from hospital stay: Patient responded well to antibiotics and steroids with rapid decrease in white count, cough purulence and work of breathing. He is at his baseline breathing at this time with normal white count and normal renal function Status: Acute (2) Malignant neoplasm of right main bronchus: Details from hospital stay: Continue with outpatient oncology Status: Acute (3) Hepatocellular carcinoma: Details from hospital stay: Continue with outpatient oncology. Recent CT scan showed a hepatic lobe lesion still present Status: Acute (4) Pulmonary embolism: Details from hospital stay: Continue on Eliquis Status: Acute (5) Acute kidney failure: Details from hospital stay: Resolved Status: Acute Reason for Visit Reason for Visit: sob Brief History: aStish Fry is a 68 year old male who comes in with could not breathe last night and this morning of admission. States that he took his oxygen off to change his shirt and get dressed and oxygen dropped from 90% to 76%. Typically he is on 3 L/min since his lung cancer recurred 4 years ago. He states he initially had lung cancer resection for a lobe of his lung 10 to 11 years ago. He had a recurrence and underwent chemo and radiation 4 years ago. He quit smoking 2 years ago. He has had fevers chills yesterday with cough productive of green phlegm. He denies chest pain Patient also has a history of liver cancer treated with chemo and radiation and implanted beads 2 years ago. He states his liver is scarred down. He states that lung cancer still has a small mass that they are following. He has CAT scans every 6 months and his last PET scan was about [address] Grissom retired and he now will see Dr. Marshall Hospital Course Hospital Course Patient was started on Levaquin due to penicillin and cefdinir rash as well as bilateral pneumonia suspicious for atypical pathogen. White count dropped to normal by day 2. Renal function returned to normal by day 3. Patient states he is breathing well cough is less and cough production is less. He did cough up small amount of blood-tinged this morning but overall purulence has decreased. Patient states he is at his usual level of breathing and is ready to go home. Notably the patient has lung cancer and is following with oncology. He has new oncologist is Dr. Marshall after Dr. Grissom retired Physical Exam Narrative: General well-developed well-nourished male in no acute cardiopulmonary distress and not coughing today CV regular rate and rhythm distant heart tones Lungs clear with poor air movement and prolonged expiratory phase Abdomen positive bowel sounds soft Calves no tenderness or pretibial edema Mentation alert and orient x 3 Skin not diaphoretic Discharge Data Studies Completed and Pending Completed Studies During Hospitalization Category Date Time Status XR chest 1V portable [id number] Stat Exams 06/25/24 14:22 Completed Pending at discharge Category Date Time Status Basic Metabolic Panel AM LABS Lab 06/28/24 04:00 Ordered Blood Culture Stat Lab 06/25/24 16:46 Results Radiology Impressions Chest X-Ray 06/25/24 14:22 IMPRESSION: Consolidations in the right hilum and left lung base. Findings are suspicious for multifocal pneumonia. Radiographic follow-up to resolution is recommended. Laboratory Results WBC 8.15 10^3/uL (3.29-11.43) 06/26/24 03:00 RBC 3.67 10^6/uL (3.85-5.65) L 06/26/24 03:00 Hgb 10.20 g/dL (11.27-16.99) L 06/26/24 03:00 Hct 32.9 % (37-53) L 06/26/24 03:00 MCV 89.6 fl (82-101) 06/26/24 03:00 MCH 27.8 pg (27-33) 06/26/24 03:00 MCHC 31.0 g/dL (30-55) 06/26/24 03:00 RDW 14.6 % (12.1-15.1) 06/26/24 03:00 Plt Count 150 10^3/cmm (157-399) L 06/26/24 03:00 MPV 10.3 fL (7.4-10.4) 06/26/24 03:00 Neut % (Auto) 90.2 % 06/26/24 03:00 Lymph % (Auto) 6.7 % 06/26/24 03:00 [place] % (Auto) 2.5 % 06/26/24 03:00 Eos % (Auto) 0.1 % 06/26/24 03:00 Baso % (Auto) 0.1 % 06/26/24 03:00 Neut # (Auto) 7.35 10^3/uL (1.8-7.7) 06/26/24 03:00 Lymph # (Auto) 0.6 10^3/uL (0.8-4.8) L 06/26/24 03:00 [place] # (Auto) 0.2 10^3/uL (0.2-0.9) 06/26/24 03:00 Eos # (Auto) 0.0 10^3/uL (0.0-0.8) 06/26/24 03:00 Baso # (Auto) 0.0 10^3/uL (0.0-0.1) 06/26/24 03:00 Nucleated RBC % (auto) 0 % 06/26/24 03:00 Nucleated RBCs # 0.0 /100WBC 06/26/24 03:00 PT 18.70 SECONDS (12.1-14.9) H 06/25/24 16:02 INR 1.46 (0.8-1.2) H 06/25/24 16:02 Sodium 142 mmol/L (136-145) 06/27/24 06:40 Potassium 4.2 mmol/L (3.5-5.1) 06/27/24 06:40 Chloride 107 mmol/L (98-107) 06/27/24 06:40 Carbon Dioxide 23 mmol/L (22-29) 06/27/24 06:40 Anion Gap 16.2 (5-19) 06/27/24 06:40 BUN 20 mg/dL (8-23) 06/27/24 06:40 Creatinine 1.0 mg/dL (0.7-1.2) 06/27/24 06:40 GFR Calculation 73.9 mL/min (90-130) L 06/27/24 06:40 Glucose 139 mg/dL (65-115) H 06/27/24 06:40 Calculated Osmolality 299 mOsm/kg (285-295) H 06/27/24 06:40 Calcium 9.0 mg/dL (8.5-10.5) 06/27/24 06:40 Total Bilirubin 0.5 mg/dL (0.15-1.2) 06/25/24 16:45 AST 22 U/L (0-40) 06/25/24 16:45 ALT 12 U/L (0-41) 06/25/24 16:45 Alkaline Phosphatase 78 U/L (40-130) 06/25/24 16:45 NT-Pro-B Natriuret Pep 2146 pg/mL (0-125) H 06/25/24 16:45 Total Protein 8.2 g/dL (6.6-8.7) 06/25/24 16:45 Albumin 3.6 g/dL (3.5-5.2) 06/25/24 16:45 Globulin 4.6 g/dL (1.3-4.6) 06/25/24 16:45 Imaging CXR: Radiologist's impression: Consolidations in the right hilum and left lung base. Findings are suspicious for multifocal pneumonia. Radiographic follow-up to resolution is recommended. Vitals Last Vital Signs Temp 97.4 F L 06/27/24 08:00 Pulse 117 H 06/27/24 08:23 Resp 18 06/27/24 08:23 BP 120/63 06/27/24 08:00 Pulse Ox 92 06/27/24 08:23 O2 Del Method Room Air 06/27/24 08:23 O2 Flow Rate 3 06/27/24 04:00 Discharge Plan Discharge Patient Disposition: Home Condition: Stable Prescriptions: New alprazolam 0.5 mg Tablet 0.5 mg PO TID PRN (Reason: Anxiety) Qty: 1 0RF dexamethasone 4 mg Tablet 4 mg PO DAILY Qty: 4 0RF oxycodone 5 mg Tablet 10 mg PO QID PRN (Reason: pain) Qty: 1 0RF guaifenesin [Mucinex] 600 mg Tablet Extended Release 12hr 1,200 mg PO BID Qty: 12 0RF levofloxacin 500 mg Tablet 500 mg PO DAILY@0600 Qty: 5 0RF fluticasone propionate 250 mcg/actuation blister with device 1 inh inhalation BID Qty: 60 0RF osimertinib 40 mg Tablet 80 mg PO DAILY Qty: 1 0RF Continued Stiolto Respimat 2.5-2.5 mcg/actuation mist 2 puff INHALATION DAILY Qty: 4 3RF tamsulosin 0.4 mg capsule 0.4 mg PO QPM cetirizine [Zyrtec] 10 mg tablet 10 mg PO DAILY gabapentin 300 mg capsule 300 mg PO TID fluticasone propionate [Flonase Allergy Relief] 50 mcg/actuation spray,suspension 1 spray INTRANASAL BID PRN (Reason: Nasal Congestion) Rx Instructions: administer into each nostril ezetimibe 10 mg tablet 10 mg PO DAILY Qty: 60 0RF oxycodone 10 mg tablet 10 mg PO QID PRN (Reason: pain) 30 Days Qty: 180 0RF Rx Instructions: Take 1-2 tablets by mouth 4 times daily as needed for pain. cholecalciferol (vitamin D3) [Vitamin D3] 50 mcg (2,000 unit) tablet 4,000 unit PO .TWICE WEEKLY Eliquis 5 mg tablet 5 mg PO BID Discontinued guaifenesin [Mucinex] 600 mg Tablet Extended Release 12hr 600 mg PO BID Tagrisso 40 mg Tablet 40 mg PO Q24H Discharge Orders: Discharge Order (Routine); Ordered 06/27/24 Ordered By: Dionisio Rollins Referrals: Sridevi Campbell APRN [Primary Care Provider, Family Practice] Referral Note: We have notified your physician's clinic of the need for a follow-up appointment to be scheduled. If you have not heard from them within the next 2 business days, please call them directly. Discharge Diet: Cardiac Discharge Activity: Resume usual activity Patient Instructions: Opioid Safety Activity Restrictions/Additional Instructions: take steroids course and antibiotic course till gone. flovent inhaler half-way for inhaled steroid Discharge Attestations Time Spent in Discharge Care*: greater than 30 min Quality Metrics Clinical Quality Measures [ No reported AMI, CVA or VTE this stay] Coding Level of Care Code Acute Code for Chg Fwd Diagnoses Community acquired pneumonia J18.9 Malignant neoplasm of right main bronchus C34.01 Hepatocellular carcinoma C22.0 Pulmonary embolism I26.99 Acute kidney failure N17.9 Time Spent (min) 35
[2024-06-27] MEDS: ipratropium-albuterol 3 mL Neb INHALATION (11:09)
== END 2024-06-27 12:15 | disposition home or self-care (01) | DRG 194 ==
LOC: ER 17:46 → MEDSURG 06-26 09:38
PROVIDERS: Admitting Provider Internal Medicine; Emergency Provider Emergency Medicine; PCP Nurse Practitioner Family; Visit Provider Internal Medicine
DX: J18.9 Pneumonia, unspecified organism (principal); J44.0 Chronic obstructive pulmonary disease with (acute) lower respiratory infection; N17.9 Acute kidney failure, unspecified; J96.11 Chronic respiratory failure with hypoxia; Z66 Do not resuscitate; I10 Essential (primary) hypertension; I25.10 Atherosclerotic heart disease of native coronary artery without angina pectoris; E78.5 Hyperlipidemia, unspecified; F43.10 Post-traumatic stress disorder, unspecified; F41.9 Anxiety disorder, unspecified; Z79.891 Long term (current) use of opiate analgesic; Z79.01 Long term (current) use of anticoagulants; Z86.19 Personal history of other infectious and parasitic diseases; Z85.118 Personal history of other malignant neoplasm of bronchus and lung; Z85.05 Personal history of malignant neoplasm of liver; Z85.828 Personal history of other malignant neoplasm of skin; Z86.711 Personal history of pulmonary embolism; Z99.81 Dependence on supplemental oxygen; Z90.2 Acquired absence of lung [part of]; Z92.21 Personal history of antineoplastic chemotherapy; Z92.3 Personal history of irradiation; Z87.891 Personal history of nicotine dependence; Z87.01 Personal history of pneumonia (recurrent)
CPT/HCPCS: 36415; 71045; 80048; 80053; 83880; 85025; 85610; 87040; 93005; 94640; 94664; 96365; 99285; J1956; J7030; J8540; J9999

== ENCOUNTER 2024-07-25 15:12 | Oncology outpatient (recurring) (ONCR) | payer OTHER, SELFPAY ==
[2024-07-25 16:27] LABS: Basophils % 0.4 %; Eosinophils # 0.1 10^3/uL (0.0-0.8); Eosinophils % 1.7 %; Hematocrit 32.5 % (37-53); Lymphocytes # 1.3 10^3/uL (0.8-4.8); Lymphocytes % 27.5 %; Mean Corpuscular HGB Conc 31.1 g/dL (30-55); Mean Corpuscular Hemoglobin 27.4 pg (27-33); Mean Corpuscular Volume 88.3 fl (82-101); Mean Platelet Volume 9.1 fL (7.4-10.4); Monocytes # 0.8 10^3/uL (0.2-0.9); Monocytes % 16.6 %; Neutrophils # 2.55 10^3/uL (1.8-7.7); Neutrophils % 53.6 %; Nucleated Red Blood Cells % 0 %; Platelet Count 155 10^3/cmm (157-399); Red Blood Count 3.68 10^6/uL (3.85-5.65); Red Cell Distribution Width 14.7 % (12.1-15.1); White Blood Count 4.76 10^3/uL (3.29-11.43)
[2024-07-25 16:52] LABS: Alanine Aminotransferase 9 U/L (0-41); Albumin Level 3.7 g/dL (3.5-5.2); Alkaline Phosphatase 69 U/L (40-130); Anion Gap 14.5 (5-19); Aspartate Amino Transferase 23 U/L (0-40); Blood Urea Nitrogen 15 mg/dL (8-23); Calcium 8.9 mg/dL (8.5-10.5); Carbon Dioxide 26 mmol/L (22-29); Chloride 102 mmol/L (98-107); Globulin 4.2 g/dL (1.3-4.6); Glomerular Filtration Rate 59.9 mL/min (90-130); Glucose 93 mg/dL (65-115); Lactate Dehydrogenase 173 U/L (135-225); Magnesium 1.9 mg/dL (1.7-2.3); Osmolality Calculated 287 mOsm/kg (285-295); Potassium 4.5 mmol/L (3.5-5.1); Sodium 138 mmol/L (136-145); Total Bilirubin 0.2 mg/dL (0.15-1.2); Total Protein 7.9 g/dL (6.6-8.7)
== END 2024-08-06 23:59 | disposition home or self-care (01) ==
PROVIDERS: Nurse Practitioner; PCP Nurse Practitioner Family; Visit Provider Internal Medicine
DX: C34.01 Malignant neoplasm of right main bronchus (principal); C79.31 Secondary malignant neoplasm of brain; Z79.899 Other long term (current) drug therapy; Z87.891 Personal history of nicotine dependence; Z92.3 Personal history of irradiation; Z92.21 Personal history of antineoplastic chemotherapy
CPT/HCPCS: 36591; 80053; 83615; 83735; 84443; 85025; 99213

== ENCOUNTER 2024-07-28 11:06 | Emergency (ER) | payer OTHER, MEDICARE, SELFPAY ==
[2024-07-28 11:22] VITALS: BP 94/57; PULSE 90; RESP 18; TEMP 36.7; O2SAT 91; BMI 23.1
[2024-07-28 12:42] LABS: Basophils % 0.3 %; Eosinophils # 0.1 10^3/uL (0.0-0.8); Eosinophils % 1.2 %; Hematocrit 32.1 % (37-53); Lymphocytes # 1.9 10^3/uL (0.8-4.8); Mean Corpuscular HGB Conc 30.8 g/dL (30-55); Mean Corpuscular Volume 87.5 fl (82-101); Mean Platelet Volume 10.1 fL (7.4-10.4); Monocytes # 0.6 10^3/uL (0.2-0.9); Monocytes % 10.4 %; Neutrophils # 3.31 10^3/uL (1.8-7.7); Neutrophils % 55.8 %; Nucleated Red Blood Cells % 0 %; Platelet Count 180 10^3/cmm (157-399); Red Blood Count 3.67 10^6/uL (3.85-5.65); Red Cell Distribution Width 14.8 % (12.1-15.1); White Blood Count 5.94 10^3/uL (3.29-11.43)
[2024-07-28 12:45] LABS: INR 1.41 (0.8-1.2)
[2024-07-28 13:16] VITALS: BP 115/57; PULSE 92; RESP 16; O2SAT 92
--- NOTE | 2024-07-28 13:27 | ED_ITS ---
HPI - Epistaxis 2 General: Chief complaint: Epistaxis Stated complaint: bloody nose Time Seen by Provider: 07/28/24 12:16 Source: patient Mode of arrival: ambulatory Limitations: no limitations History of Present Illness: Patient is a very nice 68-year-old male presents to ED today for evaluation of epistaxis that started around 11 PM yesterday evening before he went to bed. He states nose bled intermittently throughout the night. He states this stopped around 9 AM this morning. At time of my examination (roughly 1:30 PM) he states he has not had any further bleeding since 9. He does take Eliquis due to a previous pulmonary emboli. States he has had episodes of epistaxis before that were easily treated at home. MD complaint: epistaxis Location: left nostril Onset (ago): hour(s) Duration: intermittent Context: history of previous and other anticoagulant use Associated symptoms: Reports no associated symptoms; Deny fever(s), headache(s), sinus pain, syncope or vomiting Related Data Home Medications ?Medication ?Instructions ?Recorded ?Confirmed cetirizine 10 mg tablet (Zyrtec) 10 mg PO DAILY 07/25/24 tamsulosin 0.4 mg capsule 0.4 mg PO QPM 06/19/1907/25 cholecalciferol (vitamin D3) 50 4,000 unit PO .TWICE W EEKLY 01/20/22 07/25/24 mcg (2,000 unit) tablet (Vitamin D3) gabapentin 300 mg capsule 300 mg PO TID 01/20/2207/25 fluticasone propionate 50 1 spray intranasal BID PRN N matthew 05/20/22 07/25/24 mcg/actuation nasal Congestion spray,suspension (Flonase Allergy Relief) apixaban 5 mg tablet (Eliquis) 5 mg PO BID 12/02/23 Previous Rx's ?Medication ?Instructions ?Recorded tiotropium 2.5 mcg-olodaterol 2.5 2 puff inhalation DA MOISÉS #4 grams 08/07/19 mcg/actuation mist for inhalation (Stiolto Respimat) ezetimibe 10 mg tablet 10 mg PO DAILY #60 tabs 10/09 07/31 alprazolam 0.5 mg tablet 0.5 mg PO TID PRN Anxiety #1 tab 06/27/24 dexamethasone 4 mg tablet 4 mg PO DAILY #4 tabs fluticasone propionate 250 1 inh inhalation BID #60 ea 06/27/24 mcg/actuation blister powder for inhalation guaifenesin 600 mg tablet, 1,200 mg (2 x 600 mg) PO BI D #12 06/27/24 extended release 12 hr (Mucinex) tabs levofloxacin 500 mg tablet 500 mg PO DAILY@0600 #5 tab s 06/27/24 oxycodone 5 mg tablet 10 mg (2 x 5 mg) PO QID PRN pain 06/27/24 #1 tab osimertinib 40 mg tablet 80 mg (2 x 40 mg) PO DAILY # 60 tabs 07/13/24 oxycodone 10 mg tablet 10 mg PO QID PRN pain 30 day s #180 07/27/24 tabs Allergies Allergy/AdvReac Type Severity Reaction Status Date / Time Penicillins Allergy Severe ALGY-Rash Verified 07/25/24 15:12 Fubqpvs-ONF-SaO Reductase Allergy Severe ALGY-Rash Verified 07/25/24 15:12 Inhibitor (Zlbbdwc-Xyt-Pcs Reductase Inhibitor) cefdinir AdvReac rash Verified 07/25/24 15:12 Review of Systems 2 Const: Denies: fever(s) Eyes: Denies: change in vision ENMT: Reports: epistaxis; Denies: nasal obstruction or sinus pain Card: Denies: palpitations, lightheadedness, syncope or pre-syncope Resp: Denies: hemoptysis GI: Denies: nausea or vomiting Neuro: Denies: headache(s) or dizziness PFSH ED 2 PFSH: Medical History Chronic hypoxic respiratory failure Acute exacerbation of chronic obstructive pulmonary disease Acute hypoxic respiratory failure Community acquired pneumonia Malignant neoplasm of right main bronchus Hepatocellular carcinoma Pulmonary embolism Chronic anxiety PTSD (post-traumatic stress disorder) Dyslipidemia Coronary artery disease History of nonmelanoma skin cancer Lung cancer metastatic to brain COPD (chronic obstructive pulmonary disease) HTN (hypertension) Arthritis Allergies Aortic aneurysm History of hepatitis C Surgical History History of cataract extraction Right eye, 2021 H/O colonoscopy 3 yrs ago H/O aortic aneurysm repair H/O circumcision S/P lobectomy of lung H/O hernia repair Family History Father Cancer Family/Other CAD (coronary artery disease) Cancer Grandfather Cancer Mother Brain aneurysm Denies family history of Anesthesia complication Bleeding disorder Social History Smoking and tobacco/nicotine status: former use of tobacco/nicotine (smokeless tobacco) Quit status (tobacco/nicotine): considering quitting Alcohol intake: current Alcohol intake frequency: 0-2 Drinks per Day Alcohol type: beer Substance/Drug Use: former Date of last use: Many years ago Former substance use details: LSD, Speed, weed Additional social history: Patient is he wants DO NOT RESUSCITATE status would not want to live on a machine Lives independently: Yes Household members: spouse Marital status: service: Yes Current occupational status: disabled 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 Do you think of yourself as: Straight/Heterosexual Current gender identity: Male Physical Exam 2 Const: COMMON NORMALS: no acute distress, average body habitus, patient oriented x3, no limitations, healthy appearing, alert and well nourished G ENERAL APPEARANCE: cooperative ORIENTATION/CONSCIOUSNESS: Yes awake, Yes oriented to person, Yes oriented to place and Yes oriented to time HENMT: COMMON NORMALS: Normal external nose present FACE & SINUS: normal facial exam and sinuses nontender NOSE: Normal external nose present, No nasal polyps present, No nasal discharge present, Epistaxis present (scant dried blood to L nare; no active bleeding) and Other nasal findings present (Appears to have friable tissue at left Kiesselbach plexus; no active bleed) THROAT: p osterior oropharynx normal Neuro: COMMON NORMALS: patient oriented x3 SENSORIUM/ORIENTATION: Yes alert, Yes oriented to person, Yes oriented to place and Yes oriented to time Course 2 Vital Signs: Vital signs: Vital Signs Temperature 98.0 F 07/28/24 11:22 Pulse Rate 92 07/28/24 13:16 Respiratory Rate 16 07/28/24 13:16 Blood Pressure 115/57 07/28/24 13:16 Pulse Oximetry 92 07/28/24 13:16 Oxygen Delivery Me thod Room Air 07/28/24 11:22 MDM - Epistaxis Medical Decision Making Patient has not had any further bleeding since 9 AM this morning. That was approximately 4 hours or so ago. There is nothing further to do at this time. Patient was given several instructions on what to do at home if bleeding resumes. Differential Diagnosis Likely anterior epistaxis Medical Records I reviewed the patient's medical records. Lab Data I reviewed the patient's lab results. 07/28/24 12:23 Laboratory Results WBC 5.94 10^3/uL (3.29-11.43) 07/28/24 12:23 RBC 3.67 10^6/uL (3.85-5.65) L 07/28/24 12:23 Hgb 9.90 g/dL (11.27-16.99) L 07/28/24 12:23 Hct 32.1 % (37-53) L 07/28/24 12:23 MCV 87.5 fl (82-101) 07/28/24 12:23 MCH 27.0 pg (27-33) 07/28/24 12:23 MCHC 30.8 g/dL (30-55) 07/28/24 12:23 RDW 14.8 % (12.1-15.1) 07/28/24 12:23 Plt Count 180 10^3/cmm (157-399) 07/28/24 12:23 MPV 10.1 fL (7.4-10.4) 07/28/24 12:23 Neut % (Auto) 55.8 % 07/28/24 12:23 Lymph % (Auto) 32.0 % 07/28/24 12:23 [place] % (Auto) 10.4 % 07/28/24 12:23 Eos % (Auto) 1.2 % 07/28/24 12:23 Baso % (Auto) 0.3 % 07/28/24 12:23 Neut # (Auto) 3.31 10^3/uL (1.8-7.7) 07/28/24 12:23 Lymph # (Auto) 1.9 10^3/uL (0.8-4.8) 07/28/24 12:23 [place] # (Auto) 0.6 10^3/uL (0.2-0.9) 07/28/24 12:23 Eos # (Auto) 0.1 10^3/uL (0.0-0.8) 07/28/24 12:23 Baso # (Auto) 0.0 10^3/uL (0.0-0.1) 07/28/24 12:23 Nucleated RBC % (auto) 0 % 07/28/24 12:23 Nucleated RBCs # 0.0 /100WBC 07/28/24 12:23 PT 18.20 SECONDS (12.1-14.9) H 07/28/24 12:23 INR 1.41 (0.8-1.2) H 07/28/24 12:23 No radiology studies performed this visit Discharge Plan Discharge Patient Disposition: Home Clinical Impression: Anterior epistaxis Condition: Stable Prescriptions: No Action Stiolto Respimat 2.5-2.5 mcg/actuation mist 2 puff INHALATION DAILY Qty: 4 3RF tamsulosin 0.4 mg capsule 0.4 mg PO QPM cetirizine [Zyrtec] 10 mg tablet 10 mg PO DAILY gabapentin 300 mg capsule 300 mg PO TID fluticasone propionate [Flonase Allergy Relief] 50 mcg/actuation spray,suspension 1 spray INTRANASAL BID PRN (Reason: Nasal Congestion) Rx Instructions: administer into each nostril ezetimibe 10 mg tablet 10 mg PO DAILY Qty: 60 0RF osimertinib 40 mg tablet 80 mg PO DAILY Qty: 60 0RF oxycodone 10 mg tablet 10 mg PO QID PRN (Reason: pain) 30 Days Qty: 180 0RF Rx Instructions: Take 1-2 tablets by mouth 4 times daily as needed for pain. cholecalciferol (vitamin D3) [Vitamin D3] 50 mcg (2,000 unit) tablet 4,000 unit PO .TWICE WEEKLY alprazolam 0.5 mg Tablet 0.5 mg PO TID PRN (Reason: Anxiety) Qty: 1 0RF dexamethasone 4 mg Tablet 4 mg PO DAILY Qty: 4 0RF oxycodone 5 mg Tablet 10 mg PO QID PRN (Reason: pain) Qty: 1 0RF guaifenesin [Mucinex] 600 mg Tablet Extended Release 12hr 1,200 mg PO BID Qty: 12 0RF levofloxacin 500 mg Tablet 500 mg PO DAILY@0600 Qty: 5 0RF fluticasone propionate 250 mcg/actuation blister with device 1 inh inhalation BID Qty: 60 0RF Eliquis 5 mg tablet 5 mg PO BID Discharge Orders: Discharge ED (Routine); Ordered 07/28/24 Ordered By: Fadia Chase Referrals: Sridevi Campbell APRN [Primary Care Provider, Family Practice] Patient Instructions: Nosebleed (ED), Epistaxis - Adult Activity Restrictions/Additional Instructions: As we discussed, you have not had any bleeding from your nose in 3 to 4 hours. There is nothing further to do from an emergency standpoint. You were provided a nasal clamp at discharge. We spoke about using cppo-kye-sygnvul Afrin/Oxymetazoline at home if bleeding resumes. Try to avoid blowing your nose, coughing, sneezing, bending over, or straining. If you cannot get bleeding to stop at home you may return to the emergency department. Print Language: Belarusian Coding Level of Care Code ED Project Geologist for Micah Vizcaino
== END 2024-07-28 13:55 | disposition home or self-care (01) ==
PROVIDERS: Family Medicine; Emergency Provider Physician Assistant; PCP Nurse Practitioner Family
DX: R04.0 Epistaxis (principal); Z79.01 Long term (current) use of anticoagulants; Z87.891 Personal history of nicotine dependence; J44.9 Chronic obstructive pulmonary disease, unspecified; Z85.118 Personal history of other malignant neoplasm of bronchus and lung; E78.5 Hyperlipidemia, unspecified; I10 Essential (primary) hypertension; I25.10 Atherosclerotic heart disease of native coronary artery without angina pectoris
CPT/HCPCS: 85025; 85610; 99283

== ENCOUNTER 2024-08-23 15:43 | Emergency (ER) | payer OTHER, MEDICARE, SELFPAY ==
--- OUTSIDE RECORDS SUMMARY | 2023-09-13 09:38 | XMS_ITS | Encounter Summary ---
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 This section includes the names of all active insurance providers for the patient. 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 Date/Time Encounter Type Encounter Description Reason Pro vider Source Sep 13, 2023 02:38 PM Outpatient Encounter ADMIN PAT ACTIVTIES (MASNONCT) [facility] Encounter Template Text not used by [facility] Plan of Treatment: Future Appointments (+ 6 months) and Future Tests (+/- 45 days) The Plan of Treatment section includes future care activities for the patient from all [place] [facility]. This section includes future appointments and future orders which are active, pending or scheduled. Future Appointments This section includes appointments that were scheduled to occur 6 months from the date of the Encounter, up to a maximum of 20 appointments. The data comes from all [place] treatment facilities. Appointment Date/Time Appointment Type Appointme nt Facility Name Sep 20, 2023 08:30 AM [facility] - [facility] Oct 11, 2023 10:30 AM [facility] Nov 07, 2023 01:00 PM AMBULATORY - MEDICINE [facility] Nov 15, 2023 12:00 PM AMBULATORY - MEDICINE [facility] Nov 18, 2023 12:00 PM AMBULATORY - MEDICINE [facility] Nov 28, 2023 01:00 PM [facility] Nov 29, 2023 07:00 AM [facility] Dec 07, 2023 01:30 PM [facility] Dec 15, 2023 03:30 PM AM[facility]ATORY - MEDICINE [facility] Dec 30, 2023 10:30 AM [facility] Jan 24, 2024 08:00 AM [facility] Feb 10, 2024 08:00 AM [facility] - NONE [facility] Feb 20, 2024 11:00 AM AM[facility]ULATORY - MEDICINE [facility] Feb 20, 2024 01:45 PM AMBULATORY - MEDICINE [facility] Feb 20, 2024 02:30 PM AMBULATORY - MEDICINE [facility] Feb 20, 2024 04:30 PM [facility] Feb 24, 2024 02:00 PM AMBULATORY - MEDICINE [facility] Mar 12, 2024 03:00 PM AMBULATORY - MEDICINE [facility] Social History: Smoking Status (Most current) and Tobacco Use (All prior to encounter date) This section includes the most current, and the historical, smoking and tobacco- related health factors from the [place] facility where the Encounter took place. Current Smoking Status This section includes the most current smoking, or tobacco-related health factor, from the [place] facility where the Encounter took place. Date/Time Current Smoking Status Comment Facil ity Jul 12, 2011 12:54 PM TOBACCO OFFERED PT MEDS (PROVIDE R) [facility] Tobacco Use History This section includes a history of the smoking, or tobacco-related health factors, that were collected on or before the date of the Encounter. The data comes from the [place] facility where the Encounter took place. Date/Time Smoking Status/Tobacco Use Comment F acility Jul 12, 2011 12:54 PM TOBACCO OFFERED PT MEDS (PROVIDE R) [facility] Jul 12, 2011 12:[address] [facility] Sep 17, 2010 11:28 AM TOBACCO MEDS OFFERED BUT DECLINE D [facility] Sep 17, 2010 11:28 AM TOBACCO OFFERED PT MEDS (PROVIDE R) [facility] Sep 17, 2010 11:[address] [facility] Sep 01, 2010 09:10 AM TOBACCO MEDS OFFERED BUT DECLINE D [facility] Sep 01, 2010 09:10 AM TOBACCO OFFERED PT MEDS (PROVIDE R) [facility] Sep 01, 2010 09:[address] [facility] Advance Directives: All historical and current Section Date Range: From patient's date of to the date document was created. This section includes ALL of a patient's completed or amended [place] Advance and Rescinded Directives. The entries below indicate that a directive exists for the patient, but an actual copy is not included with this document. The data comes from all [facility]. Date Advance Directives Provider Source Oct 09, 2021 ADVANCE DIRECTIVE BRADY [facility] Aug 24, 2010 ADVANCE DIRECTIVE DISCUSSION MEIR AKHTAR [facility] Encounter Notes: All associated encounter notes This section contains the clinical notes associated to the Encounter. Date/Time Encounter Note(s) Provider Source Sep 13, 2023 02:38 PM ADMINISTRATIVE NOT E: LOCAL TITLE: LODGING APPLICATION PB STANDARD TITLE: ADMINISTRATIVE NOTE DATE OF NOTE: SEP 13, 2023@14:38 ENTRY DATE: SEP 13, 2023@14:38:25 AUTHOR: MARILYN SCHULTZ EXP COSIGNER: URGENCY: STATUS: COMPLETED LODGING APPLICATION PB Has ADDENDA Accommodations being sought for: with family/caregiver * [place] will be medically stable and cleared by referring physician to provide self-care in an unsupervised lodging setting. 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 All receipts are required in order to be reimbursed for lodging expenses and parking expenses. I understand that I am responsible for all other expenses for my lodging other than those that have been pre-approved through the [facility]. /laura SCHULTZ [employer] Spray Maker Signed: 09/13/2023 14:49 Receipt Acknowledged By: 09/14/2023 09:04 /laura Field 09/14/2023 ADDENDUM STATUS: COMPLETED Approved /laura Field Signed: 09/14/2023 09:04 MARILYN SCHULTZ [facility]
--- OUTSIDE RECORDS SUMMARY | 2023-11-07 08:00 | XMS_ITS | Encounter Summary ---
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 Date/Time Encounter Type Encounter Description Reason Provider Source Nov 07, 2023 01:00 PM OFFICE O/P EST MOD 30 MIN PRIMARY CARE/MEDICINE ICD-10-CM J18.8 Other pneumonia, unspecified organism SRIDEVI STEWARD Wolfgang Encounter Template Text not used by [place] Assessments - Encounter Diagnoses This section includes the primary and secondary diagnoses documented for the Encounter. Date/Time Primary/Secondary Diagnosis Diagnosis Name Provider Source Nov 08, 2023 09:39 AM PRIMARY Other pneumonia, unspecified organism SRIDEVI STEWARD [facility] Nov 08, 2023 09:39 AM SECONDARY Chronic obstructive pulmonary disease, unspecified SRIDEVI STEWARD [facility] Plan of Treatment: Future Appointments (+ 6 months) and Future Tests (+/- 45 days) The Plan of Treatment section includes future care activities for the patient from all [place] treatmentfacilities. This section includes future appointments and future orders which are active, pending or scheduled. Future Appointments This section includes appointments that were scheduled to occur 6 months from the date of the Encounter, up to a maximum of 20 appointments. The data comes from all [place] treatment facilities. Appointment Date/Time Appointment Type Appointme nt Facility Name Nov 15, 2023 12:00 PM AMBULATORY - MEDICINE [facility] Nov 18, 2023 12:00 PM AMBULATORY - MEDICINE [facility] Nov 28, 2023 01:00 PM [place]IC[place] [facility] Nov 29, 2023 07:00 AM [place]IC[place] [facility] Dec 07, 2023 01:30 PM [place] - [place]IC[place] [facility] Dec 15, 2023 03:30 PM AMBULATORY - MEDICINE [facility] Dec 30, 2023 10:30 AM [place] - [place]IC[place] [facility] Jan 24, 2024 08:00 AM [place] [facility] Feb 10, 2024 08:00 AM AMBULATORY - NONE [place] [facility] Feb 20, 2024 11:00 AM AMBULATORY - MEDICINE [facility] Feb 20, 2024 01:45 PM AMBULATORY - MEDICINE [facility] Feb 20, 2024 02:30 PM AMBULATORY - MEDICINE [facility] Feb 20, 2024 04:30 PM [place]IC[place] [facility] Feb 24, 2024 02:00 PM [facility] [place] [facility] [facility] Mar 12, 2024 03:00 PM [facility]BUL[facility]ORY - MEDICINE [facility] Mar 21, 2024 01:00 PM AMBULATORY - MEDICINE [facility] Apr 02, 2024 11:40 AM AMBULATORY - MEDICINE [facility] Apr 06, 2024 01:00 PM AMBULATORY - MEDICINE [facility] Apr 12, 2024 02:45 PM AMBULATORY - MEDICINE [facility] Apr 12, 2024 04:02 PM [facility] Active, Pending, and Scheduled Orders This section includes a listing of several types of active, pending, and scheduled orders, including clinic medications orders, diagnostic test orders, procedure orders and consult orders; where the start date of the order is 45 days before the date of the Encounter or 45 days after the date of theEncounter. The data comes from all [place] treatment facilities. Test Date/Time Test Type Test Details Facility Name Dec 07, 2023 07:22 AM Consult Order [facility] [id number] Cons Fleet Maintenance Manager's Choice [facility] Lab Results: +/- 30 days of the encounter This section includes the Chemistry and Hematology Lab Results on record with [place] for the patient. Radiology Reports and Pathology Reports are provided separately, in subsequent sections. Lab Results This section contains the Chemistry/Hematology Results that were resulted 30 days before or 30 daysafter the date of the Encounter. Date/Time Source Result Type Result - Unit Interpretation Reference Range Specimen Type Comment Nov 07, 2023 01:43 PM [facility] ALT/SGPT PLASMA Specimen Type: PLASMA No comment entered. Ordering Provider: MASHA NUNEZ Report Released Date/Time: Aug 31, 2023 04:35 PM Reporting Lab: [place] [facility] [address] [place] [address] Performing Lab: [place] [facility] [address] [place] [address] ALT/SGPT 14 U/L 8-40 Nov 07, 2023 01:43 PM [facility] CHOLESTEROL PANEL (PB) PLASMA Specimen Type: P LASMA No comment entered. Ordering Provider: MASHA NUNEZ Report Released Date/Time: Aug 31, 2023 04:35 PM Reporting Lab: [place] [facility] [address] [place] [address] Performing Lab: [place] [facility] [address] [place] [address] CHOLESTEROL 187 mg/dL 0-200 TRIGLYCERIDE 90 mg/dL 0-150 CALCULATED LDL 118.0 mg/dL HDL(New) 51.0 mg/dL H >40 HDL % OF TOTAL CHOLESTEROL (PB) 27.3 >25 Nov 07, 2023 01:43 PM [facility] IRON PLASM A Specimen Type: PLASMA No comment entered. Ordering Provider: MASHA NUNEZ Report Released Date/Time: Aug 31, 2023 04:35 PM Reporting Lab: [place] [facility] [address] [place] [address] Performing Lab: [place] [facility] [address] [place] [address] IRON 18 ug/dL L 65-175 Nov 07, 2023 01:43 PM [facility] DIRECT LDL (MA-PB) PLASMA Specimen Type: PLASM A No comment entered. Ordering Provider: MASHA NUNEZ Report Released Date/Time: Aug 31, 2023 04:35 PM Reporting Lab: [place] [facility] [address] [place] [address] Performing Lab: [place] [facility] [address] [place] [address] DIRECT LDL 108.6 mg/dL H 0-99.9 Nov 07, 2023 01:43 PM [facility] HGA1C BLOOD Specimen Type: BLOOD No comment entered. Ordering Provider: MASHA NUNEZ Report Released Date/Time: Aug 31, 2023 04:35 PM Reporting Lab: [place] [facility] [address] [place] [address] Performing Lab: [place] [facility] [address] [place] [address] HGA1C 5.8 4.0-6.0 Nov 07, 2023 01:43 PM [facility] VITAMIN D, 25-HYDROXY SERUM Specimen Type: SE RUM No comment entered. Ordering Provider: MASHA NUNEZ Report Released Date/Time: Aug 31, 2023 04:35 PM Reporting Lab: [place] [facility] [address] [place] [address] Performing Lab: [place] [facility] [address] [place] [address] VITAMIN D, 25-HYDROXY 20.5 ng/mL L 30-96 Nov 07, 2023 01:43 PM [facility] FOLATE (PB) SERUM Specimen Typ e: SERUM No comment entered. Ordering Provider: MASHA NUNEZ Report Released Date/Time: Aug 31, 2023 04:35 PM Reporting Lab: [place] [facility] [address] [place] [address] Performing Lab: [place] [facility] [address] [place] [address] FOLATE (PB) 14.9 ng/mL 7-20 Nov 07, 2023 01:43 PM [facility] B12 SERUM Specimen Type: SERUM No comment entered. Ordering Provider: MASHA NUNEZ Report Released Date/Time: Aug 31, 2023 04:35 PM Reporting Lab: [place] [facility] [address] [place] [address] Performing Lab: [place] [facility] [address] [place] [address] B12 559 pg/mL 213-816 Nov 07, 2023 01:43 PM [facility] COMPREHENSIVE METABOLIC PANEL PLASMA Specimen Type: PLASMA No comment entered. Ordering Provider: MASHA NUNEZ Report Released Date/Time: Aug 31, 2023 04:35 PM Reporting Lab: [place] [facility] [address] [place] [address] Performing Lab: [place] [facility] [address] [place] [address] CREATININE 1.41 mg/dL H 0.7-1.3 UREA NITROGEN 19 mg/dL 9-25 GLUCOSE 101 mg/dL H 72-99 SODIUM 136 meq/L 136-145 POTASSIUM 4.7 meq/L 3.5-5 CHLORIDE 101 meq/L 98-107 CARBON DIOXIDE 25 meq/L 22-31 CALCIUM 9.4 mg/dL 8.4-10.4 PROTEIN 8.4 g/dL 6-8.6 ALBUMIN 4.3 g/dL 3.4-5 TOTAL BILIRUBIN 0.9 mg/dL 0.2-1.2 ALKALINE PHOSPHATASE 71 U/L 40-150 AST/SGOT 24 U/L 5-34 ALT/SGPT 14 U/L 8-40 EGFR (CKD-EPI 2020) 54 Nov 07, 2023 01:43 PM [facility] CBC BLOOD Specimen Type: BLOOD No comment entered. Ordering Provider: MASHA NUNEZ Report Released Date/Time: Aug 31, 2023 04:35 PM Reporting Lab: [place] [facility] [address] [place] [facility] [address] Performing Lab: [place] [facility] [address] [facility] [address] WBC 8.4 10*3/uL 3.6-11.2 RBC 4.01 10*6/uL L 4.10-5.70 HGB 11.7 g/dL L 13.1-16.8 HCT 36.5 L 38.2-48.4 MCV 91.0 fL 80.0-100.0 MCH 29.2 pg 27.0-34.0 MCHC 32.1 g/dL L 33.0-36.0 PLT 186 10*3/uL 150-400 MPV 11.9 fL H 7.5-11.2 RDW 14.0 11.8-15.1 LYMPHOCYTES, AUTO % 9.8 MONOCYTES, AUTO % 8.1 NEUTROPHILS, AUTO % 80.7 EOSINOPHILS, AUTO % 0.8 BASOPHILS, AUTO % 0.4 LYMPHOCYTES, ABSOLUTE 0.82 10*3/uL 0.77- 4.50 MONOCYTES, ABSOLUTE 0.68 10*3/uL 0.19-0. 8 NEUTROPHILS, ABSOLUTE 6.73 10*3/uL 2.10- 8.00 EOSINOPHILS, ABSOLUTE 0.07 10*3/uL 0.00- 0.60 BASOPHILS, ABSOLUTE 0.03 10*3/uL 0.00-0. 20 IMMATURE GRANS, AUTO % 0.2 IMMATURE GRANS, AUTO ABS 0.02 10*3/uL 0. 00-0.05 Vital Signs: All taken on the encounter date This section contains inpatient and outpatient Vital Signs collected on the date of the Encounter. Date/Time Temperature Pulse Blood Pressure Respiratory Rate SP02 Pain Height Weight Body Mass Index Source Nov 07, 2023 01:35 PM 99.3 96 99/58 18 95 160.1 24 [facility] Social History: Smoking Status (Most current) and Tobacco Use (All prior to encounter date) This section includes the most current, and the historical, smoking and tobacco- related health factors from the [place] facility where the Encounter took place. Current Smoking Status This section includes the most current smoking, or tobacco-related health factor, from the [place] facility where the Encounter took place. Date/Time Current Smoking Status Comment Facil ity Feb 09, 2023 01:30 PM VA-TOBACCO USER SOME DAYS [facility] Tobacco Use History This section includes a history of the smoking, or tobacco-related health factors, that were collected on or before the date of the Encounter. The data comes from the [place] facility where the Encounter took place. Date/Time Smoking Status/Tobacco Use Comment F acility Feb 09, 2023 01:30 PM VA-TOBACCO USE 30 YEARS OR MORE [facility] Feb 09, 2023 01:30 PM VA-TOBACCO USE ADVICE [facility] Feb 09, 2023 01:30 PM VA-TOBACCO USE VACUUM PAN OPERATOR NO [facility] Feb 09, 2023 01:30 PM VA-TOBACCO USE MED NO [facility] Feb 09, 2023 01:30 PM VA-TOBACCO USER SOME DAYS [facility] June 12, 2021 10:30 AM VA-TOBACCO USE 30 YEARS OR MORE [facility] June 12, 2021 10:30 AM VA-TOBACCO USE ADVICE [facility] June 12, 2021 10:30 AM VA-TOBACCO USE VACUUM PAN OPERATOR NO [facility] June 12, 2021 10:30 AM VA-TOBACCO USE MED NO [facility] June 12, 2021 10:30 AM VA-TOBACCO USE WI 30 MIN OF WAKE UP [facility] June 12, 2021 10:30 AM VA-TOBACCO USER EVERY DAY [facility] June 19, 2020 09:30 AM VA-TOBACCO USE 30 YEARS OR MORE [facility] June 19, 2020 09:30 AM VA-TOBACCO USE ADVICE [facility] June 19, 2020 09:30 AM VA-TOBACCO USE VACUUM PAN OPERATOR NO [facility] June 19, 2020 09:30 AM VA-TOBACCO USE MED NO [facility] June 19, 2020 09:30 AM VA-TOBACCO USE WI 30 MIN OF WAKE UP [facility] June 19, 2020 09:30 AM VA-TOBACCO USER EVERY DAY [facility] Mar 16, 2019 01:16 PM VA-TOBACCO USE 30 YEARS OR MORE [facility] Mar 16, 2019 01:16 PM VA-TOBACCO USE AD[place]ICE [facility] Mar 16, 2019 01:16 PM VA-TOBACCO USE VACUUM PAN OPERATOR NO [facility] Mar 16, 2019 01:16 PM VA-TOBACCO USE MED NO [facility] Mar 16, 2019 01:16 PM VA-TOBACCO USE WI 30 MIN OF WAKE UP [facility] Mar 16, 2019 01:16 PM VA-TOBACCO USER EVERY DAY [facility] Dec 06, 2017 11:08 AM CURRENT TOBACCO USER [facility] Dec 06, 2017 11:08 AM CURRENT TOBACCO US ER (NOT READY TO QUIT) [facility] Dec 06, 2017 11:08 AM TOBACCO CESSATION REFERRAL DECLI SRUTHI [facility] Dec 06, 2017 11:08 AM TOBACCO MEDS OFFERED BUT DECLINE D [facility] Dec 06, 2017 11:08 AM TOBACCO USER OFFERED MEDS [facility] June 21, 2017 02:36 PM CURRENT TOBACCO USER [facility] June 21, 2017 02:36 PM CURRENT TOBACCO US ER (NOT READY TO QUIT) [facility] June 21, 2017 02:36 PM TOBACCO CESSATION REFERRAL DECLI SR[place]HI [facility] June 21, 2017 02:36 PM TOBACCO MEDS OFFERED BUT DECLINE D [facility] June 21, 2017 02:36 PM TOBACCO USER OFFERED MEDS [facility] Feb 14, 2017 11:10 AM CURRENT TOBACCO USER [facility] Feb 14, 2017 11:10 AM CURRENT TOBACCO US ER (NOT READY TO QUIT) [facility] Feb 14, 2017 11:10 AM TOBACCO CESSATION REFERRAL DECLI SRUTHI [facility] Feb 14, 2017 11:10 AM TOBACCO MEDS OFFERED BUT DECLINE D [facility] Feb 14, 2017 11:10 AM TOBACCO USER OFFERED MEDS [facility] Sep 13, 2016 01:09 PM CURRENT TOBACCO USER [facility] Sep 13, 2016 01:09 PM CURRENT TOBACCO US ER (NOT READY TO QUIT) [facility] Sep 13, 2016 01:09 PM SMOKELESS TOBACCO AMOUNT/L ENGTH V15 50+yr [facility] Sep 13, 2016 01:09 PM TOBACCO CESSATION REFERRAL DECLI SRUTHI [facility] Sep 13, 2016 01:09 PM TOBACCO MEDS OFFERED BUT DECLINE D [facility] Sep 13, 2016 01:09 PM TOBACCO USER OFFERED MEDS [facility] May 28, 2015 08:05 AM CURRENT TOBACCO USER [facility] May 28, 2015 08:05 AM TOBACCO OFFERED STOP SMOKING CLI BIANCA [facility] Mar 05, 2014 11:00 AM CURRENT TOBACCO USER [facility] Mar 05, 2014 11:00 AM TOBACCO OFFERED STOP SMOKING CLI BIANCA [facility] Apr 02, 2013 01:09 PM CURRENT TOBACCO USER [facility] Apr 02, 2013 01:09 PM TOBACCO OFFERED STOP SMOKING CLI BIANCA [facility] Apr 19, 2012 01:00 PM CURRENT TOBACCO USER [facility] Apr 19, 2012 01:00 PM TOBACCO OFFERED STOP SMOKING CLI BIANCA [facility] May 24, 2011 01:29 PM TOBACCO MEDS OFFERED BUT DECLINE D [facility] May 24, 2011 01:29 PM TOBACCO OFFERED PT MEDS (PROVIDE R) [facility] May 24, 2011 01:29 PM TOBACCO OFFERED STOP SMOKING CLI BIANCA [facility] Jan 20, 2011 09:00 AM TOBACCO MEDS OFFERED BUT DECLINE D [facility] Jan 20, 2011 09:00 AM TOBACCO OFFERED PT MEDS (PROVIDE R) [facility] Jan 20, 2011 09:00 AM TOBACCO OFFERED STOP SMOKING CLI BIANCA [facility] Jan 05, 2011 01:18 PM TOBACCO MEDS OFFERED BUT DECLINE D [facility] Jan 05, 2011 01:18 PM TOBACCO OFFERED PT MEDS (PROVIDE R) [facility] Jan 05, 2011 01:18 PM TOBACCO OFFERED STOP SMOKING CLI BIANCA [facility] Dec 22, 2010 10:38 AM TOBACCO MEDS OFFERED BUT DECLINE D [facility] Dec 22, 2010 10:38 AM TOBACCO OFFERED PT MEDS (PROVIDE R) [facility] Dec 22, 2010 10:38 AM TOBACCO OFFERED STOP SMOKING CLI BIANCA [facility] Oct 07, 2010 02:10 PM TOBACCO MEDS OFFERED BUT DECLINE D [facility] Oct 07, 2010 02:10 PM TOBACCO OFFERED PT MEDS (PROVIDE R) [facility] Oct 07, 2010 02:10 PM TOBACCO OFFERED STOP SMOKING CLI BIANCA [facility] Sep 21, 2010 10:56 AM TOBACCO MEDS OFFERED BUT DECLINE D [facility] Sep 21, 2010 10:56 AM TOBACCO OFFERED PT MEDS (PROVIDE R) [facility] [place] [facility] Sep 21, 2010 10:56 AM TOBACCO OFFERED STOP SMOKING CLI BIANCA [facility] Aug 24, 2010 01:39 PM TOBACCO MEDS OFFERED BUT DECLINE D [facility] [place] [facility] Aug 24, 2010 01:39 PM TOBACCO OFFERED PT MEDS (PROVIDE R) [facility] Aug 24, 2010 01:39 PM TOBACCO OFFERED STOP SMOKING CLI BIANCA [facility] Jul 29, 2010 08:40 AM CURRENT TOBACCO USER [facility] Jul 29, 2010 08:40 AM TOBACCO MEDS OFFERED BUT DECLINE D [facility] Jul 29, 2010 08:40 AM TOBACCO OFFERED PT MEDS (PROVIDE R) [facility] Jul 29, 2010 08:40 AM TOBACCO OFFERED STOP SMOKING CLI BIANCA [facility] Mar 05, 2010 01:10 PM TOBACCO OFFERED PT MEDS (PROVIDE R) [facility] Mar 05, 2010 01:10 PM TOBACCO OFFERED STOP SMOKING CLI BIANCA [facility] Mar 05, 2010 01:10 PM TOBACCO OFFERRED PT MEDS (PROVID ER) [facility] June 11, 2009 12:52 PM TOBACCO MEDS OFFERED BUT DECLINE D [facility] June 11, 2009 12:52 PM TOBACCO OFFERED PT MEDS (PROVIDE R) [facility] June 11, 2009 12:52 PM TOBACCO OFFERED STOP SMOKING CLI BIANCA [facility] May 02, 2009 10:48 AM CURRENT TOBACCO USER [facility] May 02, 2009 10:48 AM TOBACCO MEDS OFFERED BUT DECLINE D [facility] May 02, 2009 10:48 AM TOBACCO OFFERED PT MEDS (PROVIDE R) [facility] May 02, 2009 10:48 AM TOBACCO OFFERED STOP SMOKING CLI BIANCA [facility] Advance Directives: All historical and current Section Date Range: From patient's date of to the date document was created. This section includes ALL of a patient's completed or amended [place] Advance and Rescinded Directives. The entries below indicate that a directive exists for the patient, but an actual copy is not included with this document. The data comes from all [place] facilities. Date Advance Directives Provider Source Oct 09, 2021 ADVANCE DIRECTIVE BRADY FITZPATRICK ZAHIDA FF [facility] Aug 24, 2010 ADVANCE DIRECTIVE DISCUSSION MEIR AKHTAR [facility] Radiology Reports: +/- 30 days of the encounter Radiology Reports For cases when an order for radiology services may have been completed prior to the date of the Encounter, the report list includes the Radiology Reports that were completed up to 30 days before dateof the Encounter. For cases when an order for radiology services may have been completed after the date of the Encounter, the report list also includes the Radiology Reports that were completed up to30 days after date of the Encounter. The data comes from all [place] treatment facilities. 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 There is atherosclerotic calcification. There is an Odcdau-v-Onbq via the left subclavian vein. There is an irregular masslike right hilar density with peripheral nodules in the right lung base. There is elevation of the left hemidiaphragm with apparent fibrous tenting laterally. No obvious pleural effusion. Heart size is normal. Impression: 1. Chronic findings as noted 2. Right parahilar mass with possible right basilar satellite nodules Chest CT is requested for further assessment. 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 FINDINGS: The heart is normal in size. There is no pulmonary vascular congestion or pleural effusion. There is elevation of the left hemidiaphragm which is a chronic finding. There is a left subclavian injection catheter with the tip over the superior vena cava. There is atherosclerotic change involving the thoracic aorta. There is evidence of old left rib trauma. There is increased density in the left lung base which may represent mild atelectasis or infiltrate. There is old granulomatous disease. There is obstructive lung disease. There is degenerative change involving the thoracic spine. The right hilar and perihilar region has increased density which may represent right perihilar atelectasis or infiltrate however underlying mass or lymphadenopathy cannot be excluded. Impression: 1. Increased density in the left lower lung which may represent mild atelectasis or infiltrate. 2. The right hilar and perihilar region has increased density compared to March 20, 2019 which may all represent right perihilar atelectasis or infiltrate however underlying mass or lymphadenopathy cannot be excluded. 3. Obstructive lung disease. 4. Chronic changes. 5. Left subclavian injection catheter with the tip over the superior cava. 6. Follow-up chest x-ray in approximately 1 week is recommended to evaluate for interval improvement of the new areas of density in the lungs and to help exclude underlying pathology. Primary Interpreting Staff: Jean Carlos Ballesteros M.D., Radiology (Feller Operator, no e-sig) /JEAN CARLOS ELIZALDE [facility] Encounter Notes: All associated encounter notes This section contains the clinical notes associated to the Encounter. Date/Time Encounter Note(s) Provider Source Nov 07, 2023 01:42 PM PRIMARY CARE PROGR ESS NOTE: LOCAL TITLE: PRIMARY CARE CLINIC PROGRESS NOTE PB STANDARD TITLE: PRIMARY CARE PROGRESS NOTE DATE OF NOTE: NOV 07, 2023@13:42 ENTRY DATE: NOV 07, 2023@13:43:01 AUTHOR: SRIDEVI STEWARD COSIGNER: URGENCY: STATUS: COMPLETED Date & Timesteps @13:43 This is a 68 year old MALE Allergies: PENICILLIN, SIMVASTATIN, ROSUVASTATIN CC: cough congestion HPI: Gustavo presented to the clinic today for cough and congestion and his O2 sat dropping currently he is 95-96 on 3 L of oxygen. Gustavo did not wear oxygen into the clinic and is oxygen ambulation from on ambulation from the waiting room dropped into the 70s once oxygen placed back on the he quickly came up into the 90s. Gustavo has nebulizer at home was instructed to make sure he is using it at rest sitting in the chair he is 95-96 sats. Gustavo was instructed to go to the ER if anything changed would like to stay out of the ER if he could. Initially discussed going to the ER because of possible exacerbation of pneumonia and his status being so critical. Cohagen stable sitting still instructed to use nebulizer at home to make sure in keep up with set's at home to make sure they do not drop low while on oxygen plan to call medicine into the pharmacy for he verbalizes understanding to go to the ER if anything changes his x-ray in the clinic did show possible infiltrates and will need repeat chest x-ray in clinic. Temperature: 99.3 F [37.4 C] (11/07/2023 13:35) Respiratory Rate: 18 (11/07/2023 13:35) Pulse Rate: 96 (11/07/2023 13:35) Blood Pressure: 99/58 (11/07/2023 13:35) HT: 69 in [175.3 cm] (06/21/2017 14:36) WT: 160.1 lb [72.62 kg] (11/07/2023 13:35) BMI: 23.7 95% (11/07/2023 13:35) REVIEW OF SYSTEMS: HEENT: Sinus congestion and runny nose. No sore throat or dental pain. RESPIRATORY: Productive cough SOB with exertion. Oxygen saturation dropping at home CARDIOVASCULAR: No chest pain, palpitations, tachycardia, PND, or orthopnea. MUSCULOSKELETAL: No muscle or joint pain. SKIN: No rash, lesions, or infection PSYCH: No depression and anxious at this time. Not suicidal. 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 SHAKE WELL. RINSE MOUTHPIECE FREQUENTLY TO PREVENT CLOGGING. 3) ALBUTEROL SO4 0.083% INHL 3ML INHALE 1 VIAL ACTIVE (2.5MG/3ML) BY NEBULIZATION EVERY 6 HOURS DIRECTED FOR COPD 4) ALCOHOL PREP PAD USE/APPLY PAD TO AFFECTED AREA(S) ACTIVE TWO TIMES PER WEEK FOR CLEANING AND DISINFECTING SKIN. NEEDED 5) APIXABAN 5MG TAB TAKE ONE TABLET BY MOUTH TWICE A DAY ACTIVE FOR ANTICOAGULATION 6) CALCIUM 500MG (CA CARB-1.25GM) TAB TAKE ONE TABLET BY ACTIVE MOUTH TWICE A DAY FOR DIET SUPPLEMENTATION. 7) CETIRIZINE HCL 10MG TAB TAKE ONE TABLET BY MOUTH ONCE ACTIVE A DAY NEEDED FOR ALLERGY SYMPTOMS. 8) CHOLECALCIF 50MCG (D3-2,000UNIT) TAB TAKE TWO TABLETS ACTIVE BY MOUTH ONCE A DAY FOR VITAMIN D DEFICIENCY. 9) EZETIMIBE 10MG TAB TAKE ONE TABLET BY MOUTH ONCE A ACTIVE DAY 10) FLUTICASONE PROP 50MCG 120D NASAL INHL INSTILL 1 ACTIVE SPRAY IN NOSTRIL(S) TWICE A DAY FOR ALLERGIES (MUST BE USED DIRECTED FOR MINIMUM OF 21 DAYS TO PROVIDE ADEQUATE BENEFITS) 11) GABAPENTIN 300MG CAP TAKE ONE CAPSULE BY MOUTH THREE ACTIVE TIMES A DAY FOR PAIN 12) GUAIFENESIN 400MG TAB TAKE ONE TABLET BY MOUTH EVERY ACTIVE 4 HOURS NEEDED TO THIN MUCUS. TAKE WITH 8 OUNCE GLASS OF WATER. 13) LANCET,SOFTCLIX USE LANCET FOR BLOOD TEST TWO TIMES ACTIVE PER WEEK TO MONITOR BLOOD SUGAR. USE DIRECTED. 14) MOMETASONE FUROATE 110MCG ORAL INHL 30 INHALE 2 PUFFS ACTIVE BY MOUTH ONCE A DAY FOR BREATHING. RINSE MOUTH OUT WITH WATER AND SPIT AFTER EACH DOSE. 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 DISCARD 45 DAYS AFTER OPENING. 15) OLODATEROL/TIOTROP 2.5MCG/ACTUAT 60D INH INHALE 2 ACTIVE PUFFS BY MOUTH ONCE A DAY ADMINISTER AT SAME TIME EACH DAY FOR BREATHING 16) OSIMERTINIB 80MG TAB TAKE ONE TABLET BY MOUTH ONCE A ACTIVE DAY 17) TAMSULOSIN HCL 0.4MG CAP TAKE ONE CAPSULE BY MOUTH ACTIVE EVERY EVENING APPROXIMATELY 30 MINUTES AFTER THE SAME MEAL EACH DAY (FOR PROSTATE) Active Non-VA Medications Status 1) Non-VA ALPRAZOLAM 0.25MG TAB 0.25MG BY MOUTH THREE ACTIVE TIMES A DAY NEEDED 18 Total Medications OBJECTIVE: Physical Exam General: NAD noted, A&Ox3, pleasant, appears stated age HEENT: NCAT, TM's clear, nares and oropharynx clear Neck: Supple with normal active ROM, without any lymphadenopathy Heart: RRR, no murmur, clicks, or rub Resp: Lungs on auscultation scattered wheezing throughout difficult to hear specific loose occasions of crackles but crackles noted in multiple areas. Cohagen is COPD has multiple inhalers and nebulizer at home is currently using that. Currently on 3 L of oxygen. Abdomen: Soft, non-distended, non-tender Ext: No clubbing, cyanosis, edema or obvious deformity Neuro: Grossly intact Psych: Affect normal, answers questions appropriately throughout visit Assessment/Plan: Pneumonia -current Plan to call in doxycycline and prednisone to the [facility] pharmacy across the street. Plan chest x-ray in clinic instructed to use all of his medication he is not really coughing a lot. He was instructed that if anything changed to go to the ER. Follow-up: __ as needed. Discussed with patient that in the event of community imaging / testing being ordered in the future, once the imaging / testing has been completed, please notify PACT of completion at outside facility if not called with results within 1 week by a [place] PACT member; this is due to intermittent lapses in notification of imaging completion within [facility]. All questions answered; agrees to plan of care. Follow up as listed above, annually, and as needed. Keep all appointments. Medications Reconciled. See AVS given to Cohagen. Time spent 30 minutes. Sridevi CARLISLE /ajay/ BERNA Mason, MSN, Randy Pillai [facility] Signed: 11/08/2023 06:44 SRIDEVI STEWARD [facility] Nov 07, 2023 01:36 PM PRIMARY CARE NURSI NG NOTE: LOCAL TITLE: PRIMARY CARE NURSING PROGRESS NOTE (TEXT) NURSING P STANDARD TITLE: PRIMARY CARE NURSING NOTE DATE OF NOTE: NOV 07, 2023@13:36 ENTRY DATE: NOV 07, 2023@13:36:21 AUTHOR: NGHIA GONZALESIGNER: URGENCY: STATUS: COMPLETED Established Patient ABDULLAHI WILSON IS A 68 YEAR OLD MALE BEING SEEN IN CLINIC NOV 07, 2023. = = REASON FOR VISIT: Decreased O2/ cough/ congestion/ generalized body aches/ and right lower abdomen pain Are you receiving care any where other than the [facility]? No when referred HEALTH AND SURGICAL HISTORY: Does patient report using home oxygen? Yes; Current Oxygen Flow Rate: 3L CURRENT ACTIVE MEDICATIONS FOR REVIEW: Allergies/ADRs (Tool #5) FACILITY ALLERGY/ADR -------- [facility] ROSUVASTATIN [facility] SIMVASTATIN Med. Reconciliation (Tool #1) INCLUDED IN THIS LIST: Alphabetical list of active outpatient prescriptions dispensed from this [place] (local) and dispensed from another [place] or DoD facility (remote) as well as inpatient orders (local pending and active), local clinic medications, locally documented non-VA medications, and local prescriptions that have or been discontinued in the past 90 days. Non-VA Meds Last Documented On: Sep 11, 2019 NOTE The display of VA prescriptions dispensed from another VA or DoD facility (remote) is limited to active outpatient prescription entries matched to National Drug File at the originating site and may not include some items such as investigational drugs, compounds, etc. NOT INCLUDED IN THIS LIST: Medications self-entered by the patient into personal health records (i.e. [facility]) are NOT included in this list. Non-VA medications documented outside this VA, remote inpatient orders (regardless of status) and remote clinic medications are NOT included in this list. The patient and provider must always discuss medications the patient is taking, regardless of where the medication was dispensed or obtained. OUTPT ALBUTEROL 90MCG (CFC-F) 200D ORAL INHL (Status = Active) INHALE 2 PUFFS BY ORAL INHALATION FOUR TIMES A DAY NEEDED FOR BREATHING. SHAKE WELL. RINSE MOUTHPIECE FREQUENTLY TO PREVENT CLOGGING. Rx# [id number] Last Released: 08/29/23 Qty/Days Supply: Rx Expiration Date: 03/31/24 Refills Remainin OUTPT ALBUTEROL SO4 0.083% INHL 3ML (Status = Discontinued) INHALE 1 VIAL (2.5MG/3ML) BY NEBULIZATION EVERY 6 HOURS NEEDED FOR BREATHING Rx# [id number] Last Released: Qt/Days Supply: 12090 Rx Expiration Date: 03/31/24 Refills Remainin OUTPT ALBUTEROL SO4 0.083% INHL 3ML (Status = Active) INHALE 1 VIAL (2.5MG/3ML) BY NEBULIZATION EVERY 6 HOURS DIRECTED FOR COPD Rx# [id number] Last Released: 09/09/23 Qty/Days Supply: 360/90 Rx Expiration Date: 09/04/24 Refills Remainin Indication: FOR COPD Non-VA ALPRAZOLAM 0.25MG TAB TAKE ONE TABLET BY MOUTH THREE TIMES A DAY NEEDED Medication prescribed by Non-VA provider. OUTPT APIXABAN 5MG TAB (Status = Discontinued) TAKE ONE TABLET BY MOUTH TWICE A DAY FOR ANTICOAGULATION Rx# [id number] Last Released: 08/01/23 Qty/Days Supply: 120/60 Rx Expiration Date: 01/28/24 Refills Remainin Indication: FOR ANTICOAGULATION OUTPT APIXABAN 5MG TAB (Status = Active) TAKE ONE TABLET BY MOUTH TWICE A DAY FOR ANTICOAGULATION Rx# [id number] Last Released: 09/23/23 Qty/Days Supply: 180/ Rx Expiration Date: 09/20/24 Refills Remainin Indication: FOR ANTICOAGULATION OUTPT CALCIUM 500MG (CA CARB-1.25GM) TAB (Status = Active) TAKE ONE TABLET BY MOUTH TWICE A DAY FOR DIET SUPPLEMENTATION. Rx# [id number] Last Released: 06/08/23 Qty/Days Supply: 180/ Rx Expiration Date: 03/31/24 Refills Remainin OUTPT CETIRIZINE HCL 10MG TAB (Status = Active) TAKE ONE TABLET BY MOUTH ONCE A DAY NEEDED FOR ALLERGY SYMPTOMS. Rx# [id number] Last Released: 10/13/23 Qty/Days Supply: 90 Rx Expiration Date: 03/31/24 Refills Remainin Indication: FOR ALLERGY SYMPTOMS OUTPT CHOLECALCIF 50MCG (D3-2,000UNIT) TAB (Status = Active) TAKE TWO TABLETS BY MOUTH ONCE A DAY FOR VITAMIN D DEFICIENCY. Rx# [id number] Last Released: 06/09/23 Qty/Days Supply: 200/ Rx Expiration Date: 03/31/24 Refills Remainin OUTPT EZETIMIBE 10MG TAB (Status = Discontinued) TAKE ONE TABLET BY MOUTH ONCE A DAY FOR HIGH CHOLESTEROL Rx# [id number] Last Released: 09/23/23 Qty/Days Supply: 90/ Rx Expiration Date: 09/20/24 Refills Remainin Indication: FOR HIGH CHOLESTEROL OUTPT EZETIMIBE 10MG TAB (Status = Active) TAKE ONE TABLET BY MOUTH ONCE A DAY Rx# [id number] Last Released: Qty/Days Supply: 60/60 Rx Expiration Date: 01/02/24 Refills Remainin OUTPT FLUTICASONE PROP 50MCG 120D NASAL INHL (Status = Active) INSTILL 1 SPRAY IN NOSTRIL(S) TWICE A DAY FOR ALLERGIES (MUST BE USED DIRECTED FOR MINIMUM OF 21 DAYS TO PROVIDE ADEQUATE BENEFITS) Rx# [id number] Last Released: 06/08/23 Qty/Days Supply: 3 Rx Expiration Date: 03/31/24 Refills Remainin OUTPT GABAPENTIN 300MG CAP (Status = Active) TAKE ONE CAPSULE BY MOUTH THREE TIMES A DAY FOR PAIN Rx# [id number] Last Released: 06/08/23 Qty/Days Supply: Rx Expiration Date: 03/31/24 Refills Remainin OUTPT GUAIFENESIN 400MG TAB (Status = Active) TAKE ONE TABLET BY MOUTH EVERY 4 HOURS NEEDED TO THIN MUCUS. TAKE WITH 8 OUNCE GLASS OF WATER. Rx# [id number] Last Released: 06/08/23 Qty/Days Supply: 300 Rx Expiration Date: 03/31/24 Refills Remainin OUTPT MOMETASONE FUROATE 110MCG ORAL INHL 30 (Status = Active) INHALE 2 PUFFS BY MOUTH ONCE A DAY FOR BREATHING. RINSE MOUTH OUT WITH WATER AND SPIT AFTER EACH DOSE. 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 DISCARD 45 DAYS AFTER OPENING. Rx# [id number] Last Released: 08/29/23 Qty/Days Supply: Rx Expiration Date: 03/31/24 Refills Remainin OUTPT OLODATEROL/TIOTROP 2.5MCG/ACTUAT 60D INH (Status = Active) INHALE 2 PUFFS BY MOUTH ONCE A DAY ADMINISTER AT SAME TIME EACH DAY FOR BREATHING Rx# [id number] Last Released: 08/29/23 Qty/Days Supply: Rx Expiration Date: 03/31/24 Refills Remainin OUTPT OSIMERTINIB 80MG TAB (Status = Discontinued) TAKE ONE TABLET BY MOUTH ONCE A DAY Rx# [id number] Last Released: 07/21/23 Qty/Days Supply: Rx Expiration Date: 05/16/24 Refills Remainin OUTPT OSIMERTINIB 80MG TAB (Status = Active) TAKE ONE TABLET BY MOUTH ONCE A DAY Rx# [id number] Last Released: 10/13/23 Qty/Days Supply: Rx Expiration Date: 08/15/24 Refills Remainin OUTPT TAMSULOSIN HCL 0.4MG CAP (Status = Active) TAKE ONE CAPSULE BY MOUTH EVERY EVENING APPROXIMATELY 30 MINUTES AFTER THE SAME MEAL EACH DAY (FOR PROSTATE) Rx# [id number] Last Released: 08/25/23 Qty/Days Supply: Rx Expiration Date: 03/31/24 Refills Remainin SUPPLIES OUTPT ACCU-CHEK GUIDE (GLUCOSE) TEST STRIP (Status = Active) USE 1 STRIP FOR BLOOD TEST TWO TIMES PER WEEK FOR BLOOD SUGAR MONITORING Rx# [id number] Last Released: 01/10/23 Qty/Days Supply: 50/365 Rx Expiration Date: 01/05/24 Refills Remainin Indication: FOR BLOOD SUGAR MONITORING OUTPT ALCOHOL PREP PAD (Status = Active) USE/APPLY PAD TO AFFECTED AREA(S) TWO TIMES PER WEEK FOR CLEANING AND DISINFECTING SKIN. NEEDED Rx# [id number] Last Released: 05/19/23 Qty/Days Supply: 200/90 Rx Expiration Date: 03/31/24 Refills Remainin OUTPT LANCET,SOFTCLIX (Status = Active) USE LANCET FOR BLOOD TEST TWO TIMES PER WEEK TO MONITOR BLOOD SUGAR. USE DIRECTED. Rx# [id number] Last Released: 06/08/23 Qty/Days Supply: 100/90 Rx Expiration Date: 03/31/24 Refills Remainin PHARMACY TERMS AND POSSIBLE PATIENT ACTIONS INPT = [place] inpatient order IV = [place] intravenous medication OUTPT = [place] outpatient prescription PHARMACY POSSIBLE PATIENT TERMS EXPLANATION ACTIONS -------- ---- ACTIVE A prescription that can be If you have refills, filled at the local VA pharmacy. you may request a refill of this prescription from your VA pharmacy. CLINIC A medication you received during If you have questions a visit to a VA clinic or about this medication emergency department. contact your VA healthcare team. DISCONTINUED A prescription your provider has Contact your VA stopped. It is no longer healthcare team if you available to be sent to you or need more of this picked up at the [place] pharmacy medication. window. A prescription which is too old Contact your VA to fill. This does not refer to healthcare team if you the expiration date of the need more of this medication in the container. medication. NON-VA A medication that came from If this medication someplace other than a VA information is pharmacy. This may be a incorrect or out of prescription from either the VA date, please tell your or non VA providers that was VA healthcare team. filled outside the VA. Or, it may be an [id number] (OTC), herbal, dietary supplements or sample medication. ON HOLD An active prescription that will Contact your VA not be filled until pharmacy pharmacy when you need resolves the issue. more of this medication. PARKED An active prescription that will Contact your [place] not be filled until the patient pharmacy when you need requests it. this medication. PENDING This prescription order has been If you have been sent to the pharmacy for review instructed to start and is not ready yet. this medication now, contact your VA pharmacy. SUSPENDED An active prescription that is Contact your [place] not scheduled to be filled yet. pharmacy if you need You should receive it before this medication now. you run out. Patient reports taking medications as ordered. IS PATIENT TAKING ANY OVER THE COUNTER MEDICATIONS, SUCH VITAMINS OR HERBAL SUPPLEMENTS, INCLUDING ANY MEDICATIONS PRESCRIBED BY ANOTHER PHYSICIAN? No ALLERGIES/ADVERSE REACTIONS: PENICILLIN, SIMVASTATIN, ROSUVASTATIN Does patient have any new allergies to report since last visit? VITALS: TEMPERATURE: 99.3 F [37.4 C] (11/07/2023 13:35) BP: 99/58 (11/07/2023 13:35) RESP: 18 (11/07/2023 13:35) PULSE: 96 (11/07/2023 13:35) HT: 69 in [175.3 cm] (06/21/2017 14:36) WT: 160.1 lb [72.62 kg] (11/07/2023 13:35) BMI: 23.7 PAIN ASSESSMENT: (Most Recent Pain Score in Vitals Package: 5 (08/15/2023 13:13) ) The patient indicated that they and their close contacts have not traveled outside of the [place] in the past 21 days. The patient reports the following symptoms: No symptoms present The patient is not immunocompromised. The patient does not report having a history of Multi Drug Resistant Organism (MDRO) within the last five years. The patient does not report having been exposed to measles, chickenpox, or zoster in last 30 days. This patient's last pain assessment score was: 5 (08/15/2023 13:13). A detailed pain assessment showed the following: Location of current pain 4 all over and lower right abdomen STRESS: Thank you for your service. Now let us serve you. At the [facility], we strive to provide you with exceptional health care that improves your health and well-being. Are you feeling sad, empty, or depressed? No Do you need to talk about things in your life that worry you or cause you stress? No Do you need to talk about personal problems, family problems, alcohol use, drug use, or mental or emotional illness? No SUICIDE SCREENING: The patient was asked, Over the past two weeks, how often have you been bothered by thoughts that you would be better off or of hurting yourself in some way? Not At All SPIRITUAL ASSESSMENT: Are there hinduism practices or spiritual concerns you want the stereo equipment repairer, your physician, and other health care team members to immediately know about? No Patient advised to call the clinic for any concerns, questions, or symptoms. Patient and/or caregiver verbalized understanding of plan of care. CCHT: Patient declines participation in CCHT Program at this time. Pain Assessment: - PAIN ASSESSMENT: .. This patient's last pain assessment score was: 5 (08/15/2023 13:13). A detailed pain assessment showed the following: Location of current pain 4 generalized and right lower abdomen reported to provider Patient's self identified pain goal: 0 PC [facility] MAP: PERSONAL HEALTH PLAN INVENTORY & MAP Cohagen's Response: Family HAS O2 WITH HIM BUT HAS WALKED FROM CAR TO EXAM ROOM WITHOUT IT EVEN THOUGH NURSE ENCOURAGED TO USE THIS.o2 UPON ARRIVAL TO EXAM ROOM INITIALLY 78% HIGHEST VALUE ON RA AT REST 85%. O2 AT 3L PLACED AND WENT UP TO 95-96%. NOTIFIED PROVIDER OF O2 VALUES ABOVE/ LOW GRADE FEVER/ SOFT BLOOD PRESSURE. Per A Directive 1605.06, wristband documentation: Patient wristband was removed and destroyed by (staff name) MILAGRO and placed in the designated SH[employer]It bin. NURSE KORI CALLED IMMEDIATE NEED AND GAVE FORM FOR PAYMENT AUTHORIZATION. TAKEN TO LAB FOR LAB DRAW BY KORI ARRIAZA. PLEASE REFER TO PROVIDER NOTE REGARDING MEDS THAT WERE CALLED TO OUTPATIENT PHARAMCY. /ajay/ NGHIA Hood CBVIRGILIO Signed: 11/07/2023 14:26 NGHIA GONZALES
--- OUTSIDE RECORDS SUMMARY | 2023-12-15 10:30 | XMS_ITS | Encounter Summary ---
Author Name [facility] Organization [facility] [place] Address [address], [place] [address] Care Team Providers Care Aix Architect Name Role Phone LUCA MCBRIDE Primary Care [...] Name Patient's Relationship to Policy Esparza HUMANA [facility] (R) MEDICARE ADVANTAGE [facility] ([facility]) Feb 07, 2022 [id number] FACULTY PHYSICIAN,J ERRY PATIENT MEDICAID (WNR) MEDICAID MEDIC AID (WN) Aug 07, 2012 MEDICAI D [id number] FACULTY PHYSICIAN,J ERRY PATIENT MEDICARE ([facility]) MEDICARE (M) PART A Jul 08, 2012 PART A [id number] [phone] FACULTY PHYSICIAN,J ERRY PATIENT Selected Encounter This section includes the information on record at OR for the Encounter. Date/Time Encounter Type Encounter Description Reason Provider Source Dec 15, 2023 03:30 PM OFFICE O/P EST MOD 30 MIN PRIMARY CARE/MEDICINE ICD-10-CM Z09 Encntr for f/u exam aft trtmt for cond oth than mala ocasio SRIDEVI STEWARD Wolfgang Encounter Template Text not used by VA Assessments - Encounter Diagnoses This section includes the primary and secondary diagnoses documented for the Encounter. Date/Time Primary/Secondary Diagnosis Diagnosis Name Provider Source Dec 15, 2023 11:09 AM PRIMARY Encntr for f/u exam aft trtmt for cond oth than mala ocasio SRIDEVI STEWARD [facility] Dec 15, 2023 11:09 AM SECONDARY Malignant neoplasm of unsp part of unsp bronchus or lung SRIDEVI STEWARD [facility] Dec 15, 2023 11:09 AM SECONDARY Other chronic pain SRIDEVI STEWARD [facility] Plan of Treatment: Future Appointments (+ 6 months) and Future Tests (+/- 45 days) The Plan of Treatment section includes future care activities for the patient from all OR treatmentfacilities. This section includes future appointments and future orders which are active, pending or scheduled. Future Appointments This section includes appointments that were scheduled to occur 6 months from the date of the Encounter, up to a maximum of 20 appointments. The data comes from all OR treatment facilities. Appointment Date/Time Appointment Type Appointme nt Facility Name Dec 30, 2023 10:30 AM AMBULATORY - MEDICINE [facility] Jan 24, 2024 08:00 AM AMBULATORY - SURGERY [facility] Feb 10, 2024 08:00 AM AMBULATORY - NONE [facility] Feb 20, 2024 11:00 AM AMBULATORY - MEDICINE [facility] Feb 20, 2024 01:45 PM AMBULATORY - MEDICINE [facility] Feb 20, 2024 02:30 PM AMBULATORY - MEDICINE [facility] Feb 20, 2024 04:30 PM AMBULATORY - MEDICINE [facility] Feb 24, 2024 02:00 PM AMBULATORY - MEDICINE [facility] Mar 12, 2024 03:00 PM AMBULATORY - MEDICINE [facility] Mar 21, 2024 01:00 PM AMBULATORY - MEDICINE [facility] Apr 02, 2024 11:40 AM AMBULATORY - MEDICINE [facility] Apr 06, 2024 01:00 PM AMBULATORY - MEDICINE [facility] Apr 12, 2024 02:45 PM AMBULATORY - MEDICINE [facility] Apr 12, 2024 04:02 PM AMBULATORY - MEDICINE [facility] Apr 13, 2024 02:45 PM AMBULATORY - MEDICINE [facility] May 17, 2024 01:45 PM AMBULATORY - MEDICINE [facility] Active, Pending, and Scheduled Orders This section includes a listing of several types of active, pending, and scheduled orders, including clinic medications orders, diagnostic test orders, procedure orders and consult orders; where the start date of the order is 45 days before the date of the Encounter or 45 days after the date of theEncounter. The data comes from all OR treatment facilities. Test Date/Time Test Type Test Details Facility Name Dec 07, 2023 07:22 AM Consult Order [facility]ITY [facility]-DERMATOLOGY 657A4 Cons [employer] Salesperson's Choice [facility] Vital Signs: All taken on the encounter date This section contains inpatient and outpatient Vital Signs collected on the date of the Encounter. Date/Time Temperature Pulse Blood Pressure Respiratory Rate SP02 Pain Height Weight Body Mass Index Source Dec 15, 2023 10:46 AM 98.1 87 115/67 18 96 3 155.5 23 [facility] Social History: Smoking Status (Most current) and Tobacco Use (All prior to encounter date) This section includes the most current, and the historical, smoking and tobacco- related health factors from the OR facility where the Encounter took place. Current Smoking Status This section includes the most current smoking, or tobacco-related health factor, from the OR facility where the Encounter took place. Date/Time Current Smoking Status Comment Facil ity Feb 09, 2023 01:30 PM VA-TOBACCO USER SOME DAYS [facility] Tobacco Use History This section includes a history of the smoking, or tobacco-related health factors, that were collected on or before the date of the Encounter. The data comes from the OR facility where the Encounter took place. Date/Time Smoking Status/Tobacco Use Comment F acility Feb 09, 2023 01:30 PM VA-TOBACCO USE 30 YEARS OR MORE [facility] Feb 09, 2023 01:30 PM VA-TOBACCO USE ADVICE [facility] Feb 09, 2023 01:30 PM VA-TOBACCO USE LINING MAKER HAND NO [facility] Feb 09, [...] June 12, 2021 10:30 AM VA-TOBACCO USE LINING MAKER HAND NO [facility] June 12, [...] June 19, 2020 09:30 AM VA-TOBACCO USE LINING MAKER HAND NO [facility] June 19, 2020 09:30 AM VA-TOBACCO USE MED NO [facility] June 19, 2020 09:30 AM VA-TOBACCO USE WI 30 MIN OF WAKE UP [facility] June 19, 2020 09:30 AM VA-TOBACCO USER EVERY DAY [facility] Mar 16, 2019 01:16 PM VA-TOBACCO USE 30 YEARS OR MORE [facility] Mar 16, 2019 01:16 PM VA-TOBACCO USE ADVICE [facility] Mar 16, 2019 01:16 PM VA-TOBACCO USE LINING MAKER HAND NO [facility] Mar 16, 2019 01:16 PM VA-TOBACCO USE MED NO [facility] Mar 16, 2019 01:16 PM VA-TOBACCO USE WI 30 MIN OF WAKE UP [facility] Mar 16, 2019 01:16 PM VA-TOBACCO USER EVERY DAY [facility] Dec 06, 2017 11:08 AM CURRENT TOBACCO USER [facility] Dec 06, 2017 11:08 AM CURRENT TOBACCO US ER (NOT READY TO QUIT) [facility] Dec 06, 2017 11:08 AM TOBACCO CESSATION REFERRAL DE[facility]I [facility] Dec 06, 2017 11:08 AM TOBACCO MEDS OFFERED BUT DECLINE D [facility] Dec 06, 2017 11:08 AM TOBACCO USER OFFERED MEDS [facility] June 21, 2017 02:36 PM CURRENT TOBACCO USER [facility] June 21, 2017 02:36 PM CURRENT TOBACCO US ER (NOT READY TO QUIT) [facility] June 21, 2017 02:36 PM TOBACCO CESSATION REFERRAL DECLI [facility] June 21, 2017 02:36 PM TOBACCO MEDS OFFERED BUT DECLINE D [facility] June 21, 2017 02:36 PM TOBACCO USER OFFERED MEDS [facility] Feb 14, 2017 11:10 AM CURRENT TOBACCO USER [facility] Feb 14, 2017 11:10 AM CURRENT TOBACCO US ER (NOT READY TO QUIT) [facility] Feb 14, 2017 11:10 AM TOBACCO CESSATION REFERRAL DECLI [facility] Feb 14, 2017 11:10 AM TOBACCO MEDS OFFERED BUT DECLINE D [facility] Feb 14, 2017 11:10 AM TOBACCO USER OFFERED MEDS [facility] Sep 13, 2016 01:09 PM CURRENT TOBACCO USER [facility] Sep 13, 2016 01:09 PM CURRENT TOBACCO US ER (NOT READY TO QUIT) [facility] Sep 13, 2016 01:09 PM SMOKELESS TOBACCO AMOUNT/L ENGTH V15 50+yr [facility] Sep 13, 2016 01:09 PM TOBACCO CESSATION REFERRAL DECLI SR[facility] Sep 13, 2016 01:09 PM TOBACCO MEDS OFFERED BUT DECLINE D [facility] Sep 13, 2016 01:09 PM TOBACCO USER OFFERED MEDS [facility] May 28, 2015 08:05 AM CURRENT TOBACCO USER [facility] May 28, 2015 08:05 AM TOBACCO OFFERED STOP SMOKING CLI BIANCA [facility] Mar 05, 2014 11:00 AM CURRENT TOBACCO USER [facility] Mar 05, 2014 11:00 AM TOBACCO OFFERED STOP SMOKING CLI B[facility]CA [facility] Apr 02, 2013 01:09 PM CURRENT TOBACCO USER [facility] Apr 02, 2013 01:09 PM TOBACCO OFFERED STOP SMOKING CLI [facility] Apr 19, 2012 01:00 PM CURRENT TOBACCO USER [facility] Apr 19, 2012 01:00 PM TOBACCO OFFERED STOP SMOKING CLI [facility] May 24, 2011 01:29 PM TOBACCO MEDS OFFERED BUT DECLINE D [facility] May 24, 2011 01:29 PM TOBACCO OFFERED PT MEDS (PROVIDE R) [facility] May 24, 2011 01:29 PM TOBACCO OFFERED STOP SMOKING CLI [facility] Jan 20, 2011 09:00 AM TOBACCO MEDS OFFERED BUT DECLINE D [facility] Jan 20, 2011 09:00 AM TOBACCO OFFERED PT MEDS (PROVIDE R) [facility] Jan 20, 2011 09:00 AM TOBACCO OFFERED STOP SMOKING CLI [facility] Jan 05, 2011 01:18 PM TOBACCO MEDS OFFERED BUT DECLINE D [facility] Jan 05, 2011 01:18 PM TOBACCO OFFERED PT MEDS (PROVIDE R) [facility] Jan 05, 2011 01:18 PM TOBACCO OFFERED STOP SMOKING CLI [facility] Dec 22, 2010 10:38 AM TOBACCO MEDS OFFERED BUT DECLINE D [facility] Dec 22, 2010 10:38 AM TOBACCO OFFERED PT MEDS (PROVIDE R) [facility] Dec 22, 2010 10:38 AM TOBACCO OFFERED STOP SMOKING CLI [facility] Oct 07, 2010 02:10 PM TOBACCO MEDS OFFERED BUT DECLINE D [facility] Oct 07, 2010 02:10 PM TOBACCO OFFERED PT MEDS (PROVIDE R) [facility] Oct 07, 2010 02:10 PM TOBACCO OFFERED STOP SMOKING CLI [facility] Sep 21, 2010 10:56 AM TOBACCO MEDS OFFERED BUT DECLINE D [facility] Sep 21, 2010 10:56 AM TOBACCO OFFERED PT MEDS (PROVIDE R) [facility] Sep 21, 2010 10:56 AM TOBACCO OFFERED STOP SMOKING CLI [facility] Aug 24, 2010 01:39 PM TOBACCO MEDS OFFERED BUT DECLINE D [facility] Aug 24, 2010 01:39 PM TOBACCO OFFERED PT MEDS (PROVIDE R) [facility] Aug 24, 2010 01:39 PM TOBACCO OFFERED STOP SMOKING CLI [facility] Jul 29, 2010 08:40 AM CURRENT TOBACCO USER [facility] Jul 29, 2010 08:40 AM TOBACCO MEDS OFFERED BUT DECLINE D [facility] Jul 29, 2010 08:40 AM TOBACCO OFFERED PT MEDS (PROVIDE R) [facility] Jul 29, 2010 08:40 AM TOBACCO OFFERED STOP SMOKING CLI BIANCA [facility] Mar 05, 2010 01:10 PM TOBACCO OFFERED PT MEDS (PROVIDE R) [facility] Mar 05, 2010 01:10 PM TOBACCO OFFERED STOP SMOKING CLI BIANCA [facility] Mar 05, 2010 01:10 PM TOBACCO OFFERRED PT MEDS (PROVID ER) [facility] June 11, 2009 12:52 PM TOBACCO MEDS OFFERED BUT DECLINE D [facility] June 11, 2009 12:52 PM TOBACCO OFFERED PT MEDS (PROVIDE R) [facility] June 11, 2009 12:52 PM TOBACCO OFFERED STOP SMOKING CLI BIANCA [facility] May 02, 2009 10:48 AM CURRENT TOBACCO USER [facility] May 02, 2009 10:48 AM TOBACCO MEDS OFFERED BUT DECLINE D [facility] May 02, 2009 10:48 AM TOBACCO OFFERED PT MEDS (PROVIDE R) [facility] May 02, 2009 10:48 AM TOBACCO OFFERED STOP SMOKING CLI BIANCA [facility] Advance Directives: All historical and current Section Date Range: From patient's date of to the date document was created. This section includes ALL of a patient's completed or amended OR Advance and Rescinded Directives. The entries below indicate that a directive exists for the patient, but an actual copy is not included with this document. The data comes from all OR facilities. Date Advance Directives Provider Source Oct 09, 2021 [facility] Aug 24, 2010 ADVANCE DIRECTIVE DISCUSSION MEIR AKHTAR [facility] Radiology Reports: +/- 30 days of the [...] the Encounter. The data comes from all OR treatment facilities. Date/Time Radiology Report Provider Source Nov 15, 2023 11:53 AM CHEST X-RAY, 2 VIE WS: ABDULLAHI WILSON [id number] -[id number] M Exm Date: NOV 15, 2023@11:53 Req Phys: SRIDEVI STEWARD Pat Loc: [facility] (Req'g Lo Img Loc: [facility]-XRAY [place] Service: [place] [address] (Case [id number] COMPLETE) CHEST X-RAY, 2 VIEWS (RAD Detailed) CPT:53069 Reason for Study: repeat CXR Clinical History: abnormal CXR Report Status: Verified Date Reported: NOV 15, 2023 Date Verified: NOV 15, 2023 Security Coordinator E-Sig: Report: PA and lateral views of the chest reveal degenerative skeletal changes with multiple old/healed left rib fractures. There is atherosclerotic calcification. There is an Hqdntt-m-Wezy via the left subclavian vein. There is [...] for further assessment. Primary Interpreting Staff: JALEEL ACEVEDO RADIOLOGIST (Security Coordinator, no e-sig) /JALEEL Feliz [facility] Encounter Notes: All associated encounter notes This section contains the clinical notes associated to the Encounter. Date/Time Encounter Note(s) Provider Source Dec 15, 2023 10:43 AM PRIMARY CARE NURSI NG NOTE: LOCAL TITLE: PRIMARY CARE NURSING PROGRESS NOTE (TEXT) NURSING P STANDARD TITLE: PRIMARY CARE NURSING NOTE DATE OF NOTE: DEC 15, 2023@10:43 ENTRY DATE: DEC 15, 2023@10:43:24 AUTHOR: ALAN LONGORIA EXP COSIGNER: URGENCY: STATUS: COMPLETED Established Patient ABDULLAHI WILSON IS A 68 YEAR OLD MALE BEING SEEN IN CLINIC DEC 15, 2023. = = REASON FOR VISIT: Hospital follow up from [facility]. [place] has concerns about about current oncologist Are you receiving care any where other than the OR? No HEALTH AND SURGICAL HISTORY: no new surgeries Does patient report using home oxygen? Yes; Current Oxygen Flow Rate: 3L CURRENT ACTIVE MEDICATIONS FOR REVIEW: Allergies/ADRs (Tool #5) FACILITY ALLERGY/ADR -------- [facility] PENICILLIN [facility] PENICILLIN [facility] ROSUVASTATIN [facility] SIMVASTATIN Med. Reconciliation (Tool #1) INCLUDED IN THIS LIST: Alphabetical list of active outpatient prescriptions dispensed from this OR (local) and dispensed from another OR or [facility] facility (remote) as well as inpatient orders (local pending and active), local clinic medications, locally documented non-VA medications, and local prescriptions that have or been discontinued in the past 90 days. Non-VA Meds Last Documented On: Sep 11, 2019 NOTE The display of VA prescriptions dispensed from another OR or [facility] facility (remote) is limited to active outpatient prescription entries matched to National Drug File at the originating site and may not include some items such as investigational drugs, compounds, etc. NOT INCLUDED IN THIS LIST: Medications self-entered by the patient into personal health records (i.e. [employer]) are NOT included in this list. Non-VA medications documented outside this OR, remote inpatient orders (regardless of status) and [...] RINSE MOUTHPIECE FREQUENTLY TO PREVENT CLOGGING. Rx# [id number] Last Released: 08/29/23 Qty/Days Supply: Rx Expiration Date: 03/31/24 Refills Remainin OUTPT ALBUTEROL SO4 0.083% INHL 3ML (Status = Active) INHALE 1 VIAL (2.5MG/3ML) BY NEBULIZATION EVERY 6 HOURS DIRECTED FOR COPD Rx# [id number] Last Released: 09/09/23 Qty/Days Supply: 360 Rx Expiration Date: 09/04/24 Refills Remainin Indication: FOR COPD Non-VA ALPRAZOLAM 0.25MG TAB TAKE ONE TABLET BY MOUTH THREE TIMES A DAY NEEDED Medication prescribed by Non-VA provider. OUTPT APIXABAN 5MG TAB (Status = Discontinued) TAKE ONE TABLET BY MOUTH TWICE A DAY FOR ANTICOAGULATION Rx# [id number] Last Released: 08/01/23 Qty/Days Supply: 120/60 Rx Expiration Date: 01/28/24 Refills Remainin Indication: FOR ANTICOAGULATION OUTPT APIXABAN 5MG TAB (Status = Active) TAKE ONE TABLET BY MOUTH TWICE A DAY FOR ANTICOAGULATION Rx# [id number] Last Released: 09/23/23 Qty/Days Supply: 180/90 Rx Expiration Date: 09/20/24 Refills Remainin Indication: FOR ANTICOAGULATION OUTPT CALCIUM 500MG (CA CARB-1.25GM) TAB (Status = Active) TAKE ONE TABLET BY MOUTH TWICE A DAY FOR DIET SUPPLEMENTATION. Rx# [id number] Last Released: 06/08/23 Qty/Days Supply: 18090 Rx Expiration Date: 03/31/24 Refills Remainin OUTPT CETIRIZINE HCL 10MG TAB (Status = Active) TAKE ONE TABLET BY MOUTH ONCE A DAY NEEDED FOR ALLERGY SYMPTOMS. Rx# [id number] Last Released: 10/13/23 Qty/Days Supply: 90 Rx Expiration Date: 03/31/24 Refills Remainin Indication: FOR ALLERGY SYMPTOMS OUTPT CHOLECALCIF 50MCG (D3-2,000UNIT) TAB (Status = Active) TAKE TWO TABLETS BY MOUTH ONCE A DAY FOR VITAMIN D DEFICIENCY. Rx# [id number] Last Released: 06/09/23 Qty/Days Supply: 200/ Rx Expiration Date: 03/31/24 Refills Remainin OUTPT EZETIMIBE 10MG TAB (Status = Discontinued) TAKE ONE TABLET BY MOUTH ONCE A DAY FOR HIGH CHOLESTEROL Rx# [id number] Last Released: 09/23/23 Qty/Days Supply: 90 Rx Expiration Date: 09/20/24 Refills Remainin Indication: FOR HIGH CHOLESTEROL OUTPT EZETIMIBE 10MG TAB (Status = Active) TAKE ONE TABLET BY MOUTH ONCE A DAY Rx# [id number] Last Released: 11/07/23 Qty/Days Supply: 60/60 Rx Expiration Date: 01/02/24 Refills Remainin OUTPT FLUTICASONE PROP 50MCG 120D NASAL INHL (Status = Active) INSTILL 1 SPRAY IN NOSTRIL(S) TWICE A DAY FOR ALLERGIES (MUST BE USED DIRECTED FOR MINIMUM OF 21 DAYS TO PROVIDE ADEQUATE BENEFITS) Rx# [id number] Last Released: 06/08/23 Qty/Days Supply: 3 Rx Expiration Date: 03/31/24 Refills Remainin OUTPT GABAPENTIN 300MG CAP (Status = Active) TAKE ONE CAPSULE BY MOUTH THREE TIMES A DAY FOR PAIN Rx# [id number] Last Released: 06/08/23 Qty/Days Supply: 270/ Rx Expiration Date: 03/31/24 Refills Remainin OUTPT GUAIFENESIN 400MG TAB (Status = Active) TAKE ONE TABLET BY MOUTH EVERY 4 HOURS NEEDED TO THIN MUCUS. TAKE WITH 8 OUNCE GLASS OF WATER. Rx# [id number] Last Released: 12/05/23 Qty/Days Supply: 300/90 Rx Expiration Date: 03/31/24 Refills Remainin OUTPT MOMETASONE FUROATE 110MCG ORAL INHL 30 (Status = Active) INHALE 2 PUFFS BY MOUTH ONCE A DAY FOR BREATHING. RINSE MOUTH OUT WITH WATER AND SPIT AFTER EACH DOSE. STORE INHALER IN BOBBIN COIL WINDER AT ROOM TEMPERATURE UNTIL READY TO OPEN. DISCARD 45 DAYS AFTER OPENING. Rx# [id number] Last Released: 12/05/23 Qty/Days Supply: Rx Expiration Date: 03/31/24 Refills Remainin OUTPT OLODATEROL/TIOTROP 2.5MCG/ACTUAT 60D INH (Status = Active) INHALE 2 PUFFS BY MOUTH ONCE A DAY ADMINISTER AT SAME TIME EACH DAY FOR BREATHING Rx# [id number] Last Released: 12/05/23 Qty/Days Supply: Rx Expiration Date: 03/31/24 Refills Remainin OUTPT OSIMERTINIB 80MG TAB (Status = Discontinued) TAKE ONE TABLET BY MOUTH ONCE A DAY Rx# [id number] Last Released: 10/13/23 Qty/Days Supply: Rx Expiration Date: 08/15/24 Refills Remainin OUTPT OSIMERTINIB 80MG TAB (Status = Active) TAKE ONE TABLET BY MOUTH ONCE A DAY Rx# [id number] Last Released: 11/30/23 Qty/Days Supply: Rx Expiration Date: 11/11/24 Refills Remainin OUTPT TAMSULOSIN HCL 0.4MG CAP (Status = Active) TAKE ONE CAPSULE BY MOUTH EVERY EVENING APPROXIMATELY 30 MINUTES AFTER THE SAME MEAL EACH DAY (FOR PROSTATE) Rx# [id number] Last Released: 12/02/23 Qty/Days Supply: Rx Expiration Date: 03/31/24 Refills Remainin SUPPLIES OUTPT ACCU-CHEK GUIDE (GLUCOSE) TEST STRIP (Status = Active) USE 1 STRIP FOR BLOOD TEST TWO TIMES PER WEEK FOR BLOOD SUGAR MONITORING Rx# [id number] Last Released: 01/10/23 Qty/Days Supply: 50/365 Rx Expiration Date: 01/05/24 Refills Remainin Indication: FOR BLOOD SUGAR MONITORING OUTPT ALCOHOL PREP PAD (Status = Active) USE/APPLY PAD TO AFFECTED AREA(S) TWO TIMES PER WEEK FOR CLEANING AND DISINFECTING SKIN. NEEDED Rx# [id number] Last Released: 05/19/23 Qty/Days Supply: 200/90 Rx Expiration Date: 03/31/24 Refills Remainin OUTPT LANCET,SOFTCLIX (Status = Active) USE LANCET FOR BLOOD TEST TWO TIMES PER WEEK TO MONITOR BLOOD SUGAR. USE DIRECTED. Rx# [id number] Last Released: 06/08/23 Qty/Days Supply: 100/90 Rx Expiration Date: 03/31/24 Refills Remainin PHARMACY TERMS AND POSSIBLE PATIENT ACTIONS INPT = OR inpatient order IV = OR intravenous medication OUTPT = OR outpatient prescription PHARMACY POSSIBLE PATIENT TERMS EXPLANATION ACTIONS -------- ---- ACTIVE A prescription that can be If you have refills, filled at the local OR pharmacy. you may request a refill of this prescription from your OR pharmacy. CLINIC A medication you received during If you have questions a visit to a OR clinic or about this medication emergency department. contact your VA healthcare team. DISCONTINUED A prescription your provider has Contact your VA stopped. It is no longer healthcare team if you available to be sent to you or need more of this picked up at the OR pharmacy medication. window. A prescription which is [...] the VA. Or, it may be an gfqv-nhu-jmnjqxe (OTC), herbal, dietary supplements or sample medication. ON HOLD An active prescription that will Contact your VA not be filled until pharmacy pharmacy when you need resolves the issue. more of this medication. PARKED An active prescription that will Contact your VA not be filled until the patient pharmacy when you need requests it. this medication. PENDING This prescription order has been If you have been sent to the pharmacy for review instructed to start and is not ready yet. this medication now, contact your VA pharmacy. SUSPENDED An active prescription that is Contact your VA not scheduled to be filled yet. pharmacy [...] new allergies to report since last visit? NO VITALS: TEMPERATURE: 99.3 F [37.4 C] (11/07/2023 [...] chickenpox, or zoster in last 30 days. STRESS: Thank you for your service. Now let us serve you. At the [facility], we strive to provide you with exceptional [...] Not At All SPIRITUAL ASSESSMENT: Are there baptist practices or spiritual concerns you want the hot water heater installer, your physician, and other health care team members to immediately know about? No Patient advised to call the clinic for any concerns, questions, or symptoms. Patient and/or caregiver verbalized understanding of plan of care. COVID-19 Immunization - L,N,P,PH,U: Refused Moderna Monovalent COVID-19 vaccine Immunization: COVID-19 (MODERNA), MRNA, LNP-S, PF, 50 MCG/0.5 ML (AGES 12+ YEARS) Refusal Reason: PATIENT DECISION Patient refuses all immunization(s) in the COVID-19 group Date Documented: 12/15/23 10:51 Advanced Directive Screen/Neon Electrician: ADVANCE DIRECTIVE SCREENING: I asked if the patient has an advance directive, and determined that: Patient has an Advance Directive. Patient does not wish to make any changes to the Advance Directive at this time. ADVANCE DIRECTIVE NOTIFICATION I did not provide the patient with written notification about advance directives because declined Level of understanding: Good Pain Assessment: - PAIN ASSESSMENT: .. Patient is reporting some pain. PAIN SCORE TODAY: 3 Patient's self identified pain goal: 0 Weight Control/Nutrition Counseling: * The patient received the following counseling at this encounter: Patient was encouraged to restrict fat, especially saturated fats, in a normal diet. Benefit of a diet high in fiber was discussed. Patient was advised to include 5 or more servings of fruit and vegetables and six or more servings of grains as a well balanced diet. Herpes Zoster (Shingles) Vaccine - L,N,P,PH,U: The patient declines to receive the recommended dose of zoster (shingles) vaccine. Immunization: ZOSTER RECOMBINANT Refusal Reason: PATIENT DECISION Patient refuses all immunization(s) in the ZOSTER group Date Documented: 12/15/23 10:52 Patient/Nurse Interview: * * Patient stated that adequate information was received regarding the condition and/or treatment. Hepatitis B Immunization - L,N,P,PH,U: The patient declines to receive the recommended dose of Hepatitis B vaccine. Immunization: HEP B, UNSPECIFIED FORMULATION Refusal Reason: PATIENT DECISION Patient refuses all immunization(s) in the HepB group Date Documented: 12/15/23 10:53 Eye Care At-Risk Screen - L,N,PH,U: Patient identified to be at risk for the following eye condition(s): DIABETIC RETINOPATHY: Diabetes Diagnosis Information: Encounter Diagnosis: 07/01/2022@11:00 E11.9 (ICD-10-CM) Type 2 Diabetes Mellitus without Complications rank: SECONDARY Prov. Narr. - Diabetes Mellitus Type 2 ([facility] [id number]) MACULAR DEGENERATION: Macular Degeneration Risk Factors Information: Reminder Term: VA-AMD RISK FACTORS Encounter Diagnosis: 03/14/2018@12:00 I25.10 (ICD-10-CM) Atherosclerotic Heart Disease of [place] Coronary Artery without Angina Pectoris rank: PRIMARY Prov. Narr. - Coronary artery disease ([facility] [id number]) Action: No Referral Ordered: Eye exam completed elsewhere by an Patient Day Coordinator or Political Researcher Diabetic retinal exam result: Results Unknown (recommended that patient proceed with eye care request or obtain outside retinal exam result within 90 days) Date: August, ? Exact date is unknown Location: [facility] Comment: Macular degeneration in left eye Per [facility] Directive 1605.06, wristband documentation: Patient wristband was removed and destroyed by (staff name) Alan Longoria and placed in the designated Data[employer] bin. /es/ Alan Longoria SEED YEAST OPERATOR MELVI PILLAI [facility] Signed: 12/15/2023 10:54 ALAN LONGORIA [facility] Dec 15, 2023 10:43 AM PRIMARY CARE PROGR ESS NOTE: LOCAL TITLE: PRIMARY CARE CLINIC PROGRESS NOTE PB STANDARD TITLE: PRIMARY CARE PROGRESS NOTE DATE OF NOTE: DEC 15, 2023@10:43 ENTRY DATE: DEC 15, 2023@10:43:15 AUTHOR: SRIDEVI STEWARD EXP COSIGNER: URGENCY: STATUS: COMPLETED This is a 68 year old MALE DS - Disabilities Eligibility: SERVICE CONNECTED 50% to 100% VERIFIED Total S/C %: 80 LIMITED EXTENSION OF KNEE 30% S/C LIMITED EXTENSION OF THIGH 0% S/C LIMITED FLEXION OF THIGH 10% S/C LIMITED EXTENSION OF KNEE 30% S/C LIMITED FLEXION OF THIGH 0% S/C LIMITED MOTION OF ANKLE 10% S/C THIGH CONDITION 10% S/C THIGH CONDITION 10% S/C LIMITED EXTENSION OF THIGH 0% S/C Chief Complaint (Reason for today's visit): f/u ER visit History of Present Illness (Subjective): presented today for follow-up ER and hospital stay has metastatic lung CA. And does not really want to do a whole lot of other testing to find out what other cancer he has he knows that it is metastatic and he would like to just be comfortable and just read out the rest of his years. Discussed with investigating brain cancer or liver cancer and at this point does not desire to do any other testing he does agree to do the PET scan at this time. is concerned of progressive disease process and pain management at that time we talked about hospice and we talked about pain management and I assured him that we would manage his pain and anxiety and not to stress about it. is in agreement with current plan of care will monitor his progression he was instructed to follow-up as needed and does not desire anything else is having some lower back pain will send some cyclobenzaprine and some hydroxyzine for anxiety. And rest Allergies: PENICILLIN, SIMVASTATIN, ROSUVASTATIN REVIEW OF SYSTEMS: HEENT: No visual or auditory symptoms. RESPIRATORY: No shortness of breath, cough or sputum. CARDIOVASCULAR: No chest pain or palpitation. GI: No abdominal pain, nausea, vomiting or bowel changes. MUSCULOSKELETAL: lower back pain. SKIN: No new rashes, no unhealing lesions, no moles. : No urinary symptoms. PSYCH: Denies being depressed or anxious. VITALS: Temperature: 99.3 F [37.4 C] (11/07/2023 13:35) Respiratory Rate: 18 (11/07/2023 13:35) Pulse Rate: 96 (11/07/2023 13:35) Blood Pressure: 99/58 (11/07/2023 13:35) HT: 69 in [175.3 cm] (06/21/2017 14:36) WT: 160.1 lb [72.62 kg] (11/07/2023 13:35) BMI: 23.7 95% (11/07/2023 13:35) PHYSICAL EXAM: General: NAD noted, A&Ox3, pleasant, appears stated age HEENT: NCAT, TM's clear, nares and oropharynx clear Neck: Supple with normal active ROM, without any lymphadenopathy Heart: RRR, no murmur, clicks, or rub Resp: Lungs CTA bilaterally, respirations even and unlabored Abdomen: Soft, non-distended, non-tender Ext: No clubbing, cyanosis, edema or obvious deformity Neuro: Grossly intact Psych: Affect normal, answers questions appropriately throughout visit On the following Active Medications: Active Outpatient Medications (including Supplies): Active Outpatient [...] SPIT AFTER EACH DOSE. STORE INHALER IN BOBBIN COIL WINDER AT ROOM TEMPERATURE UNTIL READY TO OPEN. 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 [employer]) are NOT included in this list. Non-VA medications documented outside this OR, remote inpatient orders (regardless of status) and [...] RINSE MOUTHPIECE FREQUENTLY TO PREVENT CLOGGING. Rx# [id number] Last Released: 08/29/23 Qty/Days Supply: Rx Expiration Date: 03/31/24 Refills Remainin OUTPT ALBUTEROL SO4 0.083% INHL 3ML (Status = Active) INHALE 1 VIAL (2.5MG/3ML) BY NEBULIZATION EVERY 6 HOURS DIRECTED FOR COPD Rx# [id number] Last Released: 09/09/23 Qty/Days Supply: 360/90 Rx Expiration Date: 09/04/24 Refills Remainin Indication: FOR COPD Non-VA ALPRAZOLAM 0.25MG TAB TAKE ONE TABLET BY MOUTH THREE TIMES A DAY NEEDED Medication prescribed by Non-VA provider. OUTPT APIXABAN 5MG TAB (Status = Discontinued) TAKE ONE TABLET BY MOUTH TWICE A DAY FOR ANTICOAGULATION Rx# [id number] Last Released: 08/01/23 Qty/Days Supply: 120/60 Rx Expiration Date: 01/28/24 Refills Remainin Indication: FOR ANTICOAGULATION OUTPT APIXABAN 5MG TAB (Status = Active) TAKE ONE TABLET BY MOUTH TWICE A DAY FOR ANTICOAGULATION Rx# [id number] Last Released: 09/23/23 Qty/Days Supply: 180/90 Rx Expiration Date: 09/20/24 Refills Remainin Indication: FOR ANTICOAGULATION OUTPT CALCIUM 500MG (CA CARB-1.25GM) TAB (Status = Active) TAKE ONE TABLET BY MOUTH TWICE A DAY FOR DIET SUPPLEMENTATION. Rx# [id number] Last Released: 06/08/23 Qty/Days Supply: 180 Rx Expiration Date: 03/31/24 Refills Remainin OUTPT CETIRIZINE HCL 10MG TAB (Status = Active) TAKE ONE TABLET BY MOUTH ONCE A DAY NEEDED FOR ALLERGY SYMPTOMS. Rx# [id number] Last Released: 10/13/23 Qty/Days Supply: 90 Rx Expiration Date: 03/31/24 Refills Remainin Indication: FOR ALLERGY SYMPTOMS OUTPT CHOLECALCIF 50MCG (D3-2,000UNIT) TAB (Status = Active) TAKE TWO TABLETS BY MOUTH ONCE A DAY FOR VITAMIN D DEFICIENCY. Rx# [id number] Last Released: 06/09/23 Qty/Days Supply: 200 Rx Expiration Date: 03/31/24 Refills Remainin OUTPT EZETIMIBE 10MG TAB (Status = Discontinued) TAKE ONE TABLET BY MOUTH ONCE A DAY FOR HIGH CHOLESTEROL Rx# [id number] Last Released: 09/23/23 Qty/Days Supply: 90 Rx Expiration Date: 09/20/24 Refills Remainin Indication: FOR HIGH CHOLESTEROL OUTPT EZETIMIBE 10MG TAB (Status = Active) TAKE ONE TABLET BY MOUTH ONCE A DAY Rx# [id number] Last Released: 11/07/23 Qty/Days Supply: 60/60 Rx Expiration Date: 01/02/24 Refills Remainin OUTPT FLUTICASONE PROP 50MCG 120D NASAL INHL (Status = Active) INSTILL 1 SPRAY IN NOSTRIL(S) TWICE A DAY FOR ALLERGIES (MUST BE USED DIRECTED FOR MINIMUM OF 21 DAYS TO PROVIDE ADEQUATE BENEFITS) Rx# [id number] Last Released: 06/08/23 Qty/Days Supply: 3 Rx Expiration Date: 03/31/24 Refills Remainin OUTPT GABAPENTIN 300MG CAP (Status = Active) TAKE ONE CAPSULE BY MOUTH THREE TIMES A DAY FOR PAIN Rx# [id number] Last Released: 06/08/23 Qty/Days Supply: 270/ Rx Expiration Date: 03/31/24 Refills Remainin OUTPT GUAIFENESIN 400MG TAB (Status = Active) TAKE ONE TABLET BY MOUTH EVERY 4 HOURS NEEDED TO THIN MUCUS. TAKE WITH 8 OUNCE GLASS OF WATER. Rx# [id number] Last Released: 12/05/23 Qty/Days Supply: Rx Expiration Date: 03/31/24 Refills Remainin OUTPT MOMETASONE FUROATE 110MCG ORAL INHL 30 (Status = Active) INHALE 2 PUFFS BY MOUTH ONCE A DAY FOR BREATHING. RINSE MOUTH OUT WITH WATER AND SPIT AFTER EACH DOSE. STORE INHALER IN BOBBIN COIL WINDER AT ROOM TEMPERATURE UNTIL READY TO OPEN. DISCARD 45 DAYS AFTER OPENING. Rx# [id number] Last Released: 12/05/23 Qty/Days Supply: Rx Expiration Date: 03/31/24 Refills Remainin OUTPT OLODATEROL/TIOTROP 2.5MCG/ACTUAT 60D INH (Status = Active) INHALE 2 PUFFS BY MOUTH ONCE A DAY ADMINISTER AT SAME TIME EACH DAY FOR BREATHING Rx# [id number] Last Released: 12/05/23 Qty/Days Supply: Rx Expiration Date: 03/31/24 Refills Remainin OUTPT OSIMERTINIB 80MG TAB (Status = Discontinued) TAKE ONE TABLET BY MOUTH ONCE A DAY Rx# [id number] Last Released: 10/13/23 Qty/Days Supply: Rx Expiration Date: 08/15/24 Refills Remainin OUTPT OSIMERTINIB 80MG TAB (Status = Active) TAKE ONE TABLET BY MOUTH ONCE A DAY Rx# [id number] Last Released: 11/30/23 Qty/Days Supply: Rx Expiration Date: 11/11/24 Refills Remainin OUTPT TAMSULOSIN HCL 0.4MG CAP (Status = Active) TAKE ONE CAPSULE BY MOUTH EVERY EVENING APPROXIMATELY 30 MINUTES AFTER THE SAME MEAL EACH DAY (FOR PROSTATE) Rx# [id number] Last Released: 12/02/23 Qty/Days Supply: Rx Expiration Date: 03/31/24 Refills Remainin SUPPLIES OUTPT ACCU-CHEK GUIDE (GLUCOSE) TEST STRIP (Status = Active) USE 1 STRIP FOR BLOOD TEST TWO TIMES PER WEEK FOR BLOOD SUGAR MONITORING Rx# [id number] Last Released: 01/10/23 Qty/Days Supply: 50/365 Rx Expiration Date: 01/05/24 Refills Remainin Indication: FOR BLOOD SUGAR MONITORING OUTPT ALCOHOL PREP PAD (Status = Active) USE/APPLY PAD TO AFFECTED AREA(S) TWO TIMES PER WEEK FOR CLEANING AND DISINFECTING SKIN. NEEDED Rx# [id number] Last Released: 05/19/23 Qty/Days Supply: 200/90 Rx Expiration Date: 03/31/24 Refills Remainin OUTPT LANCET,SOFTCLIX (Status = Active) USE LANCET FOR BLOOD TEST TWO TIMES PER WEEK TO MONITOR BLOOD SUGAR. USE DIRECTED. Rx# [id number] Last Released: 06/08/23 Qty/Days Supply: 100/90 Rx Expiration Date: 03/31/24 Refills Remainin PHARMACY TERMS AND POSSIBLE PATIENT ACTIONS INPT = OR inpatient order IV = OR intravenous medication OUTPT = OR outpatient prescription PHARMACY POSSIBLE PATIENT TERMS EXPLANATION ACTIONS -------- ---- ACTIVE A prescription that can be If you have refills, filled at the local [place] pharmacy. you may request a refill of this prescription from your OR pharmacy. CLINIC A medication you received during If you have questions a visit to a VA clinic or about this medication emergency department. contact your VA healthcare team. DISCONTINUED A prescription your provider has Contact your VA stopped. It is no longer healthcare team if you available to be sent to you or need more of this picked up at the OR pharmacy medication. window. A prescription which is [...] the VA. Or, it may be an ewrm-oaf-[id number] (OTC), herbal, dietary supplements or sample medication. ON HOLD An active prescription that will Contact your VA not be filled until pharmacy pharmacy when you need resolves the issue. more of this medication. PARKED An active prescription that will Contact your VA not be filled until the patient pharmacy when you need requests it. this medication. PENDING This prescription order has been If you have been sent to the pharmacy for review instructed to start and is not ready yet. this medication now, contact your VA pharmacy. SUSPENDED An active prescription that is Contact your OR not scheduled to be filled yet. pharmacy if you need You should receive it before this medication now. you run out. NON-VA MEDICATIONS NOT LISTED ABOVE (List, including Herbals and OTC): Reviewed with patient/family members. Copy given to patient. Patient verbalized understanding? yes ===== ASSESSMENT/IMPRESSION: ER follow-up -current Lung cancer -current PLAN OF CARE: ER follow-up plan to continue per current plan of care currently seeing oncology will follow as needed knows to call if he has any needs Metastatic lung cancer plan PET scan at this time Follow-up: _ as needed and keep regularly scheduled appointment. Discussed diet and exercise as relevant to patient conditions. Patient is advised this primary care clinic has open access and he can make a same day appointment anytime a problem/concern arises. Patient further advised he can be seen on a walk-in basis as needed. Patient is provided clinic contact information. Treatment plan as noted above and the After Visit Summary was reviewed with ; opportunity provided to report concerns and ask question regarding aspects of care or treatment or services; concurrence reached and verbalized understanding. Discussed with patient that in the event of community imaging/testing being ordered in the future, once the imaging testing has been completed, please notify PACT of within 1 week by a VA PACT member; this is due to intermittent lapses in notification of imaging completion within [facility]. All questions answered; agrees to plan of care. Follow up as listed above, annually, and as needed. Keep all completion at outside facility if not called with results appointments. Medications Reconciled. Time spent 30 minutes. Sridevi [facility] APR Float /es/ BERNA Mason, MSN, Melvi Pillai [facility] Signed: 12/15/2023 11:09 SRIDEVI STEWARD DC [facility]IRE[facility]
--- OUTSIDE RECORDS SUMMARY | 2024-02-20 08:45 | XMS_ITS | Encounter Summary ---
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 Date/Time Encounter Type Encounter Description Reason Provider Source Feb 20, 2024 01:45 PM OFF/OP EST JUNE X REQ PHY/QHP PRIMARY CARE/MEDICINE ICD-10-CM R06.00 Dyspnea, unspecified CUSTRED,ASHLEY Kraig IHE Encounter Template Text not used by [place] Assessments - Encounter Diagnoses This section includes the primary and secondary diagnoses documented for the Encounter. Date/Time Primary/Secondary Diagnosis Diagnosis Name Provider Source Feb 20, 2024 04:55 PM PRIMARY Dyspnea, unspecified CUSTRED,ASHLEY J [facility] Plan of Treatment: Future Appointments (+ 6 months) and Future Tests (+/- 45 days) The Plan of Treatment section includes future care activities for the patient from all [place] [facility] This section includes future appointments and future orders which are active, pending or scheduled. Future Appointments This section includes appointments that were scheduled to occur 6 months from the date of the Encounter, up to a maximum of 20 appointments. The data comes from all [place] treatment facilities. Appointment Date/Time Appointment Type Appointme nt Facility Name Feb 24, 2024 02:00 PM AMBULATORY - MEDICINE [facility] Mar 12, 2024 03:00 PM [facility] [place] [facility] Mar 21, 2024 01:00 PM [facility] [place] [facility] [facility] Apr 02, 2024 11:40 AM [facility] [place] [facility] [facility] Apr 06, 2024 01:00 PM [facility] Apr 12, 2024 02:45 PM [facility] [place] [facility] Apr 12, 2024 04:02 PM [facility]ORY - MEDICINE [facility] [facility] Apr 13, 2024 02:45 PM AMBULATORY - MEDICINE [facility] [facility] May 17, 2024 01:45 PM [facility]UL[facility]ORY - [facility] [place] [facility] June 28, 2024 01:00 PM [facility] [place] [facility] Jul 20, 2024 09:00 AM [facility] [place] [facility] Jul 25, 2024 01:30 PM [facility] - [facility]IC[place] [facility] Aug 17, 2024 01:30 PM AMBULATORY - MEDICINE [place] [facility] Vital Signs: All taken on the encounter date This section contains inpatient and outpatient Vital Signs collected on the date of the Encounter. Date/Time Temperature Pulse Blood Pressure Respiratory Rate SP02 Pain Height Weight Body Mass Index Source Feb 20, 2024 04:46 PM 99 96 101/53 [facility] Social History: Smoking Status (Most current) and Tobacco Use (All prior to encounter date) This section includes the most current, and the historical, smoking and tobacco- related health factors from the [place] facility where the Encounter took place. Current Smoking Status This section includes the most current smoking, or tobacco-related health factor, from the [place] facility where the Encounter took place. Date/Time Current Smoking Status Comment Facil ity Feb 09, 2023 01:30 PM VA-TOBACCO DOESNT USE [place] 30 MIN WAKEUP [facility] Tobacco Use History This section includes a history of the smoking, or tobacco-related health factors, that were collected on or before the date of the Encounter. The data comes from the [place] facility where the Encounter took place. 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 [facility] June 19, 2020 09:30 AM VA-TOBACCO USE MED NO [facility] June 19, 2020 09:30 AM VA-TOBACCO USE [place] 30 MIN OF WAKE UP [facility] June 19, 2020 09:30 AM VA-TOBACCO USER EVERY DAY [facility] Mar 16, 2019 01:16 PM VA-TOBACCO USE 30 YEARS OR MORE [facility] Mar 16, 2019 01:16 PM VA-TOBACCO USE ADVICE [facility] Mar 16, 2019 01:16 PM 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 [facility] Mar 16, 2019 01:16 PM VA-TOBACCO USE MED NO [place] [facility] Mar 16, 2019 01:16 PM VA-TOBACCO USE [place] 30 MIN OF WAKE UP [facility] Mar 16, 2019 01:16 PM VA-TOBACCO USER EVERY DAY [facility] Dec 06, 2017 11:08 AM CURRENT TOBACCO USER [facility] Dec 06, 2017 11:08 AM CURRENT TOBACCO US ER (NOT READY TO QUIT) [facility] Dec 06, 2017 11:08 AM TOBACCO CESSATION REFERRAL DECLI SRUTHI [facility] Dec 06, 2017 11:08 AM TOBACCO MEDS OFFERED BUT DECLINE D [facility] Dec 06, 2017 11:08 AM TOBACCO USER OFFERED MEDS [place] [facility] June 21, 2017 02:36 PM CURRENT TOBACCO USER [facility] June 21, 2017 02:36 PM CURRENT TOBACCO US ER (NOT READY TO QUIT) [facility] June 21, 2017 02:36 PM TOBACCO CESSATION REFERRAL DECLI SRUTHI [facility] June 21, 2017 02:36 PM TOBACCO MEDS OFFERED BUT DECLINE D [facility] June 21, 2017 02:36 PM TOBACCO USER OFFERED MEDS [facility] Feb 14, 2017 11:10 AM CURRENT TOBACCO USER [facility] Feb 14, 2017 11:10 AM CURRENT TOBACCO US ER (NOT READY TO QUIT) [facility] Feb 14, 2017 11:10 AM TOBACCO CESSATION REFERRAL DECLI SRUTHI [facility] Feb 14, 2017 11:10 AM TOBACCO MEDS OFFERED BUT DECLINE D [facility] Feb 14, 2017 11:10 AM TOBACCO USER OFFERED MEDS [facility] Sep 13, 2016 01:09 PM CURRENT TOBACCO USER [facility] Sep 13, 2016 01:09 PM CURRENT TOBACCO US ER (NOT READY TO QUIT) [facility] Sep 13, 2016 01:09 PM SMOKELESS TOBACCO AMOUNT/L ENGTH V15 50+yr [facility] Sep 13, 2016 01:09 PM TOBACCO CESSATION REFERRAL DECLI SRUTHI [facility] Sep 13, 2016 01:09 PM TOBACCO MEDS OFFERED BUT DECLINE D [place] [facility] Sep 13, 2016 01:09 PM TOBACCO USER OFFERED MEDS [facility] May 28, 2015 08:05 AM CURRENT TOBACCO USER [facility] May 28, 2015 08:05 AM TOBACCO OFFERED STOP SMOKING CLI BIANCA [facility] Mar 05, 2014 11:00 AM CURRENT TOBACCO USER [facility] Mar 05, 2014 11:00 AM TOBACCO OFFERED STOP SMOKING CLI [facility] Apr 02, 2013 01:09 PM CURRENT TOBACCO USER [facility] Apr 02, 2013 01:09 PM TOBACCO OFFERED STOP SMOKING CLI [facility] Apr 19, 2012 01:00 PM CURRENT TOBACCO USER [facility] Apr 19, 2012 01:00 PM TOBACCO OFFERED STOP SMOKING CLI [facility] May 24, 2011 01:29 PM TOBACCO MEDS OFFERED BUT DECLINE D [facility] May 24, 2011 01:29 PM TOBACCO OFFERED PT MEDS (PROVIDE R) [facility] May 24, 2011 01:29 PM TOBACCO OFFERED STOP SMOKING CLI [facility] Jan 20, 2011 09:00 AM TOBACCO MEDS OFFERED BUT DECLINE D [place] [facility] Jan 20, 2011 09:00 AM TOBACCO OFFERED PT MEDS (PROVIDE R) [facility] Jan 20, 2011 09:00 AM TOBACCO OFFERED STOP SMOKING CLI [facility] Jan 05, 2011 01:18 PM TOBACCO MEDS OFFERED BUT DECLINE D [facility] Jan 05, 2011 01:18 PM TOBACCO OFFERED PT MEDS (PROVIDE R) [facility] Jan 05, 2011 01:18 PM TOBACCO OFFERED STOP SMOKING CLI BIANCA [facility] Dec 22, 2010 10:38 AM TOBACCO MEDS OFFERED BUT DECLINE D [facility] Dec 22, 2010 10:38 AM TOBACCO OFFERED PT MEDS (PROVIDE R) [facility] Dec 22, 2010 10:38 AM TOBACCO OFFERED STOP SMOKING CLI BIANCA [facility] Oct 07, 2010 02:10 PM TOBACCO MEDS OFFERED BUT DECLINE D [facility] Oct 07, 2010 02:10 PM TOBACCO OFFERED PT MEDS (PROVIDE R) [facility] Oct 07, 2010 02:10 PM TOBACCO OFFERED STOP SMOKING CLI BIANCA [facility] Sep 21, 2010 10:56 AM TOBACCO MEDS OFFERED BUT DECLINE D [facility] Sep 21, 2010 10:56 AM TOBACCO OFFERED PT MEDS (PROVIDE R) [facility] Sep 21, 2010 10:56 AM TOBACCO OFFERED STOP SMOKING CLI B[facility] Aug 24, 2010 01:39 PM TOBACCO MEDS OFFERED BUT DECLINE D [facility] Aug 24, 2010 01:39 PM TOBACCO OFFERED PT MEDS (PROVIDE R) [facility] Aug 24, 2010 01:39 PM TOBACCO OFFERED STOP SMOKING CLI BIANCA [facility] Jul 29, 2010 08:40 AM CURRENT TOBACCO USER [facility] Jul 29, 2010 08:40 AM TOBACCO MEDS OFFERED BUT DECLINE D [facility] Jul 29, 2010 08:40 AM TOBACCO OFFERED PT MEDS (PROVIDE R) [facility] Jul 29, 2010 08:40 AM TOBACCO OFFERED STOP SMOKING CLI BIANCA [facility] Mar 05, 2010 01:10 PM TOBACCO OFFERED PT MEDS (PROVIDE R) [facility] Mar 05, 2010 01:10 PM TOBACCO OFFERED STOP SMOKING CLI B[facility]CA [facility] Mar 05, 2010 01:10 PM TOBACCO OFFERRED PT MEDS (PROVID ER) [facility] June 11, 2009 12:52 PM TOBACCO MEDS OFFERED BUT DECLINE D [facility] June 11, 2009 12:52 PM TOBACCO OFFERED PT MEDS (PROVIDE R) [facility] June 11, 2009 12:52 PM TOBACCO OFFERED STOP SMOKING CLI BIANCA [facility] May 02, 2009 10:48 AM CURRENT TOBACCO USER [facility] May 02, 2009 10:48 AM TOBACCO MEDS OFFERED BUT DECLINE D [facility] May 02, 2009 10:48 AM TOBACCO OFFERED PT MEDS (PROVIDE R) [facility] May 02, 2009 10:48 AM TOBACCO OFFERED STOP SMOKING CLI BIANCA [facility] Advance Directives: All historical and current Section Date Range: From patient's date of to the date document was created. This section includes ALL of a patient's completed or amended [place] Advance and Rescinded Directives. The entries below indicate that a directive exists for the patient, but an actual copy is not included with this document. The data comes from all [place] facilities. Date Advance Directives Provider Source Oct 09, 2021 ADVANCE DIRECTIVE BRADY FITZPATRICK [facility] Aug 24, 2010 ADVANCE DIRECTIVE DISCUSSION MEIR AKHTAR [facility] Encounter Notes: All associated encounter notes This section contains the clinical notes associated to the Encounter. Date/Time Encounter Note(s) Provider Source Feb 20, 2024 04:46 PM NURSING PROGRESS N OTE: LOCAL TITLE: NURSING NOTE PB STANDARD TITLE: NURSING PROGRESS NOTE DATE OF NOTE: FEB 20, 2024@16:46 ENTRY DATE: FEB 20, 2024@16:46:05 AUTHOR: ASHLEY HAM EXP COSIGNER: URGENCY: STATUS: COMPLETED Blood Pressure: 101/53 Pulse: 96 Temperature: 99 F (37.2 C) Pulse Oximetry: 91% Active Outpatient Medications: Active Outpatient Medications (including Supplies): Active Outpatient Medications Status 1) ALBUTEROL 90MCG (CFC-F) 200D ORAL INHL INHALE 2 PUFFS BY ACTIVE ORAL INHALATION FOUR TIMES A DAY NEEDED FOR BREATHING. SHAKE WELL. RINSE MOUTHPIECE FREQUENTLY TO PREVENT CLOGGING. 2) ALBUTEROL SO4 0.083% INHL 3ML INHALE 1 VIAL (2.5MG/3ML) BY ACTIVE NEBULIZATION EVERY 6 HOURS DIRECTED Indication: FOR COPD 3) ALCOHOL PREP PAD USE/APPLY PAD TO AFFECTED AREA(S) TWO TIMES ACTIVE PER WEEK FOR CLEANING AND DISINFECTING SKIN. NEEDED 4) APIXABAN 5MG TAB TAKE ONE TABLET BY MOUTH TWICE A DAY ACTIVE Indication: FOR ANTICOAGULATION 5) CALCIUM 500MG (CA CARB-1.25GM) TAB TAKE ONE TABLET BY MOUTH ACTIVE TWICE A DAY FOR DIET SUPPLEMENTATION. 6) CETIRIZINE HCL 10MG TAB TAKE ONE TABLET BY MOUTH ONCE A DAY ACTIVE NEEDED . Indication: FOR ALLERGY SYMPTOMS 7) CHOLECALCIF 50MCG (D3-2,000UNIT) TAB TAKE TWO TABLETS BY ACTIVE MOUTH ONCE A DAY FOR VITAMIN D DEFICIENCY. 8) CYCLOBENZAPRINE HCL 10MG TAB TAKE ONE TABLET BY MOUTH THREE ACTIVE TIMES A DAY MAY CAUSE DROWSINESS. DO NOT DRINK ALCOHOL WHILE TAKING THIS MEDICATION. Indication: FOR MUSCLE SPASM 9) EZETIMIBE 10MG TAB TAKE ONE TABLET BY MOUTH ONCE A DAY ACTIVE (S) 10) FLUTICASONE PROP 50MCG 120D NASAL INHL INSTILL 1 SPRAY IN ACTIVE NOSTRIL(S) TWICE A DAY FOR ALLERGIES (MUST BE USED DIRECTED FOR MINIMUM OF 21 DAYS TO PROVIDE ADEQUATE BENEFITS) 11) GABAPENTIN 300MG CAP TAKE ONE CAPSULE BY MOUTH THREE TIMES A ACTIVE DAY FOR PAIN 12) GUAIFENESIN 400MG TAB TAKE ONE TABLET BY MOUTH EVERY 4 HOURS ACTIVE NEEDED TO THIN MUCUS. TAKE WITH 8 OUNCE GLASS OF WATER. 13) HYDROXYZINE HCL 25MG TAB TAKE ONE TABLET BY MOUTH THREE ACTIVE TIMES A DAY NEEDED *MAY CAUSE DROWSINESS* Indication: FOR ANXIETY 14) LANCET,SOFTCLIX USE LANCET FOR BLOOD TEST TWO TIMES PER WEEK ACTIVE TO MONITOR BLOOD SUGAR. USE DIRECTED. 15) MOMETASONE FUROATE 110MCG ORAL INHL 30 INHALE 2 PUFFS BY ACTIVE MOUTH ONCE A DAY FOR BREATHING. RINSE MOUTH OUT WITH WATER AND SPIT AFTER EACH DOSE. 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 DISCARD 45 DAYS AFTER OPENING. 16) OLODATEROL/TIOTROP 2.5MCG/ACTUAT 60D INH INHALE 2 PUFFS BY ACTIVE MOUTH ONCE A DAY ADMINISTER AT SAME TIME EACH DAY FOR BREATHING 17) OSIMERTINIB 80MG TAB TAKE ONE TABLET BY MOUTH ONCE A DAY ACTIVE 18) TAMSULOSIN HCL 0.4MG CAP TAKE ONE CAPSULE BY MOUTH EVERY ACTIVE EVENING APPROXIMATELY 30 MINUTES AFTER THE SAME MEAL EACH DAY (FOR PROSTATE) Active Non-VA Medications Status 1) Non-VA ALPRAZOLAM 0.25MG TAB 0.25MG BY MOUTH THREE TIMES A ACTIVE DAY NEEDED CC: Gomer reports to walk in clinic for increased shortness of breath. Subjective: states that on Tuesday he started not feeling well with general fatigue and malaise. states possible fevers but unsure. Reports needing to increase his oxygen from 2L nasal cannula to 3L nasal cannula to maintain sats around 90%. O/A: is alert and oriented. Dyspnea noted with minimal exertion. Heart rate regular with no peripheral edema. Lung sounds overall decreased with few rales audible right lung. Sao2 on 3l 91%. Plan/ Intervention: Discussed with PACT STRATEGY INTERN Gomer to go to ER. Requesting to go via private vehicle. Report called to receiving nursing staff. RTC: As scheduled and as needed. Per [facility] Directive 1605.06, wristband documentation: Patient wristband was removed and destroyed by (staff name) Ashley Ham RN and placed in the designated [employer] bin. /es/ ASHLEY SALAZAR, CALVIN [place] CBVIRGILIO Signed: 02/20/2024 16:54 Receipt Acknowledged By: 02/21/2024 05:56 /es/ BERNA Mason, MSN, Randy Norrishing [facility]
--- OUTSIDE RECORDS SUMMARY | 2024-03-12 10:00 | XMS_ITS | Encounter Summary ---
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 (R) MEDICARE ADVANTAGE 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 Date/Time Encounter Type Encounter Description Reason Provider Source Mar 12, 2024 03:00 PM OFFICE O/P EST MOD 30 MIN PRIMARY CARE/MEDICINE ICD-10-CM J20.9 Acute bronchitis, unspecified SRIDEVI STEWARD Wolfgang Encounter Template Text not used by [place] Assessments - Encounter Diagnoses This section includes the primary and secondary diagnoses documented for the Encounter. Date/Time Primary/Secondary Diagnosis Diagnosis Name Provider Source Mar 13, 2024 11:32 AM PRIMARY Acute bronchitis, unspecified SRIDEVI STEWARD [facility] Plan of Treatment: Future Appointments (+ 6 months) and Future Tests (+/- 45 days) The Plan of Treatment section includes future care activities for the patient from all [place] [facility]. This section includes future appointments and future orders which are active, pending or scheduled. Future Appointments This section includes appointments that were scheduled to occur 6 months from the date of the Encounter, up to a maximum of 20 appointments. The data comes from all [place] treatment facilities. Appointment Date/Time Appointment Type Appointme nt Facility Name Mar 21, 2024 01:00 PM AMBULATORY - MEDICINE [facility] Apr 02, 2024 11:40 AM AMBULATORY - MEDICINE [facility] Apr 06, 2024 01:00 PM AMBULATORY - MEDICINE [facility] Apr 12, 2024 02:45 PM AMBULATORY - MEDICINE [facility] Apr 12, 2024 04:02 PM AM[facility]UL[facility]ORY - MEDICINE [place] [facility] Apr 13, 2024 02:45 PM AMBULATORY - MEDICINE [facility] [facility] May 17, 2024 01:45 PM AMBULATORY - MEDICINE [place] [facility] June 28, 2024 01:00 PM AMBULATORY - MEDICINE [facility] Jul 20, 2024 09:00 AM AMBULATORY - MEDICINE [facility] Jul 25, 2024 01:30 PM AMBULATORY - MEDICINE [place] [facility] Aug 17, 2024 01:30 PM AMBULATORY - MEDICINE [facility] Aug 21, 2024 02:00 PM AMBULATORY - SURGERY [place] [facility] Active, Pending, and Scheduled Orders This section includes a listing of several types of active, pending, and scheduled orders, including clinic medications orders, diagnostic test orders, procedure orders and consult orders; where the start date of the order is 45 days before the date of the Encounter or 45 days after the date of theEncounter. The data comes from all [place] treatment facilities. Test Date/Time Test Type Test Details Facility Name Apr 13, 2024 12:00 AM Laboratory - Chemi stry Order CBC BLOOD SP [facility] Apr 13, 2024 12:00 AM Laboratory - Chemi stry Order APTT BLOOD PLASMA SP [facility] Apr 13, 2024 12:00 AM Laboratory - Chemi stry Order PRO TIME (PB) [facility] Lab Results: +/- 30 days of the encounter This section includes the Chemistry and Hematology Lab Results on record with [place] for the patient. Radiology Reports and Pathology Reports are provided separately, in subsequent sections. Lab Results This section contains the Chemistry/Hematology Results that were resulted 30 days before or 30 daysafter the date of the Encounter. Date/Time Source Result Type Result - Unit Interpretation Reference Range Specimen Type Comment Apr 02, 2024 11:20 AM [facility] DIRECT LDL (MA-PB) PLASMA Specimen Type: PLASMA No comment entered. Ordering Provider: MASHA NUNEZ Report Released Date/Time: Nov 18, 2023 06:38 AM Reporting Lab: [place] [facility] [address] [place] [address] Performing Lab: [place] [facility] [address] [place] [address] DIRECT LDL 127.6 mg/dL H 0-99.9 Apr 02, 2024 11:20 AM [facility] VITAMIN D, 25-HYDROXY SERUM Specimen Type: SE RUM No comment entered. Ordering Provider: MASHA NUNEZ Report Released Date/Time: Nov 18, 2023 06:38 AM Reporting Lab: [place] [facility] [address] [place] [address] Performing Lab: [place] [facility] [address] [place] [address] VITAMIN D, 25-HYDROXY 32.0 ng/mL 30-96 Apr 02, 2024 11:20 AM [facility] CHOLESTEROL PANEL (PB) PLASMA Specimen Type: P LASMA No comment entered. Ordering Provider: MASHA NUNEZ Report Released Date/Time: Nov 18, 2023 06:38 AM Reporting Lab: [place] [facility] [address] [place] [address] Performing Lab: [place] [facility] [address] [place] [address] CHOLESTEROL 175 mg/dL 0-200 TRIGLYCERIDE 93 mg/dL 0-150 CALCULATED LDL 115.4 mg/dL HDL(New) 41.0 mg/dL H >40 HDL % OF TOTAL CHOLESTEROL (PB) 23.4 >25 Apr 02, 2024 11:20 AM [facility] FOLATE (PB) SERUM Specimen Typ e: SERUM No comment entered. Ordering Provider: MASHA NUNEZ Report Released Date/Time: Nov 18, 2023 06:38 AM Reporting Lab: [place] [facility] [address] [place] [address] Performing Lab: [place] [facility] [address] [place] [address] FOLATE (PB) 9.6 ng/mL 7-20 Apr 02, 2024 11:20 AM [facility] HGA1C BLOOD Specimen Type: BLOOD No comment entered. Ordering Provider: MASHA NUNEZ Report Released Date/Time: Nov 18, 2023 06:38 AM Reporting Lab: [place] [facility] [address] [place] [address] Performing Lab: [place] [facility] [address] [place] [address] HGA1C 6.3 H 4.0-6.0 Apr 02, 2024 11:20 AM [facility] B12 SERUM Specimen Type: SERUM No comment entered. Ordering Provider: MASHA NUNEZ Report Released Date/Time: Nov 18, 2023 06:38 AM Reporting Lab: [place] [facility] [address] [place] [address] Performing Lab: [place] [facility] [address] [place] [address] B12 870 pg/mL H 213-816 Apr 02, 2024 11:20 AM [facility] COMPREHENSIVE METABOLIC PANEL PLASMA Specimen Type: PLASMA No comment entered. Ordering Provider: MASHA NUNEZ Report Released Date/Time: Nov 18, 2023 06:38 AM Reporting Lab: [place] [facility] [address] [place] [address] Performing Lab: [facility] [address] [place] [address] CREATININE 1.00 mg/dL 0.7-1.3 UREA NITROGEN 12 mg/dL 9-25 GLUCOSE 95 mg/dL 72-99 SODIUM 142 meq/L 136-145 POTASSIUM 4.6 meq/L 3.5-5 CHLORIDE 109 meq/L H 98-107 CARBON DIOXIDE 25 meq/L 22-31 CALCIUM 9.3 mg/dL 8.4-10.4 PROTEIN 8.5 g/dL 6-8.6 ALBUMIN 4.0 g/dL 3.4-5 TOTAL BILIRUBIN 0.3 mg/dL 0.2-1.2 ALKALINE PHOSPHATASE 62 U/L 40-150 AST/SGOT 19 U/L 5-34 ALT/SGPT 9 U/L 8-40 EGFR (CKD-EPI 2020) 81 Apr 02, 2024 11:20 AM [facility] CBC BLOOD Specimen Type: BLOOD No comment entered. Ordering Provider: MASHA NUNEZ Report Released Date/Time: Mar 21, 2024 12:33 PM Reporting Lab: [facility] [address] [place] [address] Performing Lab: [facility] [address] [place] [address] WBC 5.1 10*3/uL 3.6-11.2 RBC 3.99 10*6/uL L 4.10-5.70 HGB 11.2 g/dL L 13.1-16.8 HCT 35.7 L 38.2-48.4 MCV 89.5 fL 80.0-100.0 MCH 28.1 pg 27.0-34.0 MCHC 31.4 g/dL L 33.0-36.0 PLT 216 10*3/uL 150-400 MPV 10.2 fL 7.5-11.2 RDW 14.9 11.8-15.1 LYMPHOCYTES, AUTO % 24.5 MONOCYTES, AUTO % 10.3 NEUTROPHILS, AUTO % 61.2 EOSINOPHILS, AUTO % 3.2 BASOPHILS, AUTO % 0.6 LYMPHOCYTES, ABSOLUTE 1.24 10*3/uL 0.77- 4.50 MONOCYTES, ABSOLUTE 0.52 10*3/uL 0.19-0. 8 NEUTROPHILS, ABSOLUTE 3.10 10*3/uL 2.10- 8.00 EOSINOPHILS, ABSOLUTE 0.16 10*3/uL 0.00- 0.60 BASOPHILS, ABSOLUTE 0.03 10*3/uL 0.00-0. 20 IMMATURE GRANS, AUTO % 0.2 IMMATURE GRANS, AUTO ABS 0.01 10*3/uL 0. 00-0.05 Vital Signs: All taken on the encounter date This section contains inpatient and outpatient Vital Signs collected on the date of the Encounter. Date/Time Temperature Pulse Blood Pressure Respiratory Rate SP02 Pain Height Weight Body Mass Index Source Mar 12, 2024 03:21 PM 99/60 [facility] Mar 12, 2024 03:21 PM 98.4 84 89/51 20 92 4 157.1 23 [facility] Social History: Smoking Status (Most current) and [...] Date/Time Current Smoking Status Comment Facil ity Mar 12, 2024 03:00 PM VA-TOBACCO USE FORMER CIGARETTES [facility] Tobacco Use History This section includes a history of the smoking, or tobacco-related health factors, that were collected on or before the date of the Encounter. The data comes from the [place] facility where the Encounter took place. Date/Time Smoking Status/Tobacco Use Comment F acility Mar 12, 2024 03:00 PM VA-TOBACCO USE ADVICE [facility] Mar 12, 2024 03:00 PM VA-TOBACCO USE RELOCATION SERVICES SPECIALIST NO [facility] Mar 12, 2024 03:00 PM VA-TOBACCO USE EVERY DAY OTHER T YPE [facility] Mar 12, 2024 03:00 PM VA-TOBACCO USE EVERY DAY SMOKELE SS [facility] Mar 12, 2024 03:00 PM VA-TOBACCO USE FORMER CIGARETTES [facility] Mar 12, 2024 03:00 PM VA-TOBACCO USE MED NO [facility] Feb 09, 2023 01:30 PM VA-TOBACCO DOESNT USE [place] 30 MIN WAKEUP [facility] Feb 09, 2023 01:30 PM VA-TOBACCO USE 30 YEARS OR MORE [facility] Feb 09, 2023 01:30 PM VA-TOBACCO USE ADVICE [facility] Feb 09, 2023 01:30 PM VA-TOBACCO USE RELOCATION SERVICES SPECIALIST NO [facility] Feb 09, [...] June 12, 2021 10:30 AM VA-TOBACCO USE RELOCATION SERVICES SPECIALIST NO [facility] June 12, [...] June 19, 2020 09:30 AM VA-TOBACCO USE RELOCATION SERVICES SPECIALIST NO [facility] June 19, [...] Mar 16, 2019 01:16 PM VA-TOBACCO USE RELOCATION SERVICES SPECIALIST NO [facility] Mar 16, 2019 01:16 PM VA-TOBACCO USE MED NO [facility] Mar 16, 2019 01:16 PM VA-TOBACCO USE [place] 30 MIN OF WAKE UP [facility] Mar 16, 2019 01:16 PM VA-TOBACCO USER EVERY DAY [facility] [place] [facility] Dec 06, 2017 11:08 AM CURRENT TOBACCO USER [facility] Dec 06, 2017 11:08 AM CURRENT TOBACCO US ER (NOT READY TO QUIT) [facility] Dec 06, 2017 11:08 AM TOBACCO CESSATION REFERRAL DECLI SRUTHI [facility] Dec 06, 2017 11:08 AM TOBACCO MEDS OFFERED BUT DECLINE D [facility] Dec 06, 2017 11:08 AM TOBACCO USER OFFERED MEDS [facility] June 21, 2017 02:36 PM CURRENT TOBACCO USER [facility] [place] [facility] June 21, 2017 02:36 PM CURRENT TOBACCO US ER (NOT READY TO QUIT) [facility] [place] [facility] June 21, 2017 02:36 PM TOBACCO CESSATION REFERRAL DECLI SRUTHI [facility] [place] [facility] June 21, 2017 02:36 PM TOBACCO MEDS OFFERED BUT DECLINE D [facility] [place] [facility] June 21, 2017 02:36 PM TOBACCO USER OFFERED MEDS [facility] [place] [facility] Feb 14, 2017 11:10 AM CURRENT TOBACCO USER [facility] [place] [facility] Feb 14, 2017 11:10 AM CURRENT TOBACCO US ER (NOT READY TO QUIT) [facility] [place] [facility] Feb 14, 2017 11:10 AM TOBACCO CESSATION REFERRAL DECLI SRUTHI [facility] [place] [facility] Feb 14, 2017 11:10 AM TOBACCO MEDS OFFERED BUT DECLINE D [facility] Feb 14, 2017 11:10 AM TOBACCO USER OFFERED MEDS [facility] Sep 13, 2016 01:09 PM CURRENT TOBACCO USER [facility] Sep 13, 2016 01:09 PM CURRENT TOBACCO US ER (NOT READY TO QUIT) [facility] [place] [facility] Sep 13, 2016 01:09 PM SMOKELESS TOBACCO AMOUNT/L ENGTH V15 50+yr [facility] [place] [facility] Sep 13, 2016 01:09 PM TOBACCO CESSATION REFERRAL DECLI SRUTHI [facility] [place] [facility] Sep 13, 2016 01:09 PM TOBACCO MEDS OFFERED BUT DECLINE D [facility] Sep 13, 2016 01:09 PM TOBACCO USER OFFERED MEDS [facility] May 28, 2015 08:05 AM CURRENT TOBACCO USER [facility] May 28, 2015 08:05 AM TOBACCO OFFERED STOP SMOKING CLI BIANCA [facility] Mar 05, 2014 11:00 AM CURRENT TOBACCO USER [place] [place] Mar 05, 2014 11:00 AM TOBACCO OFFERED STOP SMOKING CLI [facility] Apr 02, 2013 01:09 PM CURRENT TOBACCO USER [facility] Apr 02, 2013 01:09 PM TOBACCO OFFERED STOP SMOKING CLI [facility] Apr 19, 2012 01:00 PM CURRENT TOBACCO USER [facility] Apr 19, 2012 01:00 PM TOBACCO OFFERED STOP SMOKING CLI BIANCA [facility] May 24, 2011 01:29 PM TOBACCO MEDS OFFERED BUT DECLINE D [facility] May 24, 2011 01:29 PM TOBACCO OFFERED PT MEDS (PROVIDE R) [facility] May 24, 2011 01:29 PM TOBACCO OFFERED STOP SMOKING CLI [facility] Jan 20, 2011 09:00 AM TOBACCO MEDS OFFERED BUT DECLINE D [facility] Jan 20, 2011 09:00 AM TOBACCO OFFERED PT MEDS (PROVIDE R) [facility] Jan 20, 2011 09:00 AM TOBACCO OFFERED STOP SMOKING CLI [facility] Jan 05, 2011 01:18 PM TOBACCO MEDS OFFERED BUT DECLINE D [facility] Jan 05, 2011 01:18 PM TOBACCO OFFERED PT MEDS (PROVIDE R) [facility] Jan 05, 2011 01:18 PM TOBACCO OFFERED STOP SMOKING CLI BIANCA [facility] Dec 22, 2010 10:38 AM TOBACCO MEDS OFFERED BUT DECLINE D [facility] Dec 22, 2010 10:38 AM TOBACCO OFFERED PT MEDS (PROVIDE R) [facility] Dec 22, 2010 10:38 AM TOBACCO OFFERED STOP SMOKING CLI BIANCA [facility] Oct 07, 2010 02:10 PM TOBACCO MEDS OFFERED BUT DECLINE D [facility] Oct 07, 2010 02:10 PM TOBACCO OFFERED PT MEDS (PROVIDE R) [facility] Oct 07, 2010 02:10 PM TOBACCO OFFERED STOP SMOKING CLI [facility] [place] Sep 21, 2010 10:56 AM TOBACCO MEDS OFFERED BUT DECLINE D [facility] Sep 21, 2010 10:56 AM TOBACCO OFFERED PT MEDS (PROVIDE R) [facility] Sep 21, 2010 10:56 AM TOBACCO OFFERED STOP SMOKING CLI BIANCA [facility] [place] [facility] Aug 24, 2010 01:39 PM TOBACCO MEDS OFFERED BUT DECLINE D [facility] [place] [facility] Aug 24, 2010 01:39 PM TOBACCO OFFERED PT MEDS (PROVIDE R) [facility] [place] [facility] Aug 24, 2010 01:39 PM TOBACCO OFFERED STOP SMOKING CLI BIANCA [facility] Jul 29, 2010 08:40 AM CURRENT TOBACCO USER [facility] Jul 29, 2010 08:40 AM TOBACCO MEDS OFFERED BUT DECLINE D [facility] [place] [facility] Jul 29, 2010 08:40 AM TOBACCO OFFERED PT MEDS (PROVIDE R) [facility] [place] [facility] Jul 29, 2010 08:40 AM TOBACCO OFFERED STOP SMOKING CLI BIANCA [facility] Mar 05, 2010 01:10 PM TOBACCO OFFERED PT MEDS (PROVIDE R) [facility] [place] [facility] Mar 05, 2010 01:10 PM TOBACCO OFFERED STOP SMOKING CLI BIANCA [facility] Mar 05, 2010 01:10 PM TOBACCO OFFERRED PT MEDS (PROVID ER) [facility] June 11, 2009 12:52 PM TOBACCO MEDS OFFERED BUT DECLINE D [facility] [place] [facility] June 11, 2009 12:52 PM TOBACCO OFFERED PT MEDS (PROVIDE R) [facility] June 11, 2009 12:52 PM TOBACCO OFFERED STOP SMOKING CLI BIANCA [facility] [place] [facility] May 02, 2009 10:48 AM CURRENT TOBACCO USER [facility] May 02, 2009 10:48 AM TOBACCO MEDS OFFERED BUT DECLINE D [facility] [place] [facility] May 02, 2009 10:48 AM TOBACCO OFFERED PT MEDS (PROVIDE R) [facility] May 02, 2009 10:48 AM TOBACCO OFFERED STOP SMOKING CLI BIANCA [facility] Advance Directives: All historical and current Section Date Range: From patient's date of to the date document was created. This section includes ALL of a patient's completed or amended [place] Advance and Rescinded Directives. The entries below indicate that a directive exists for the patient, but an actual copy is not included with this document. The data comes from all [place] facilities. Date Advance Directives Provider Source Oct 09, 2021 ADVANCE DIRECTIVE BRADY FITZPATRICK [facility] Aug 24, 2010 ADVANCE DIRECTIVE DISCUSSION MEIR AKHTAR [facility] Encounter Notes: All associated encounter notes This section contains the clinical notes associated to the Encounter. Date/Time Encounter Note(s) Provider Source Mar 12, 2024 03:31 PM PRIMARY CARE PROGR ESS NOTE: LOCAL TITLE: PRIMARY CARE CLINIC PROGRESS NOTE PB STANDARD TITLE: PRIMARY CARE PROGRESS NOTE DATE OF NOTE: MAR 12, 2024@15:31 ENTRY DATE: MAR 12, 2024@15:31:25 AUTHOR: SRIDEVI STEWARD COSIGNER: URGENCY: STATUS: COMPLETED Date & Time:Mar@15:31 This is a 68 year old MALE Allergies: PENICILLIN, SIMVASTATIN, ROSUVASTATIN CC: Cough and congestion HPI: [place] resented to day for scheduled appointment for coughing congestion that started for 5 days ago states his brought him home after visiting someone who had surgery. He states that he has congestion and is had cough it and he states that his chest with sputum bodyaches. States body aches are gone today and no fever but still having cough. [place] denies other needs at this time. Denies nausea vomiting or diarrhea mostly cough and congestion. Because of lungs will treat aggressively remains on 2 L of oxygen per nasal cannula no increase in shortness of breath Temperature: 98.4 F [36.9 C] (03/12/2024 15:21) Respiratory Rate: 20 (03/12/2024 15:21) Pulse Rate: 84 (03/12/2024 15:21) Blood Pressure: 99/60 (03/12/2024 15:21) HT: 69 in [175.3 cm] (06/21/2017 14:36) WT: 157.1 lb [71.26 kg] (03/12/2024 15:21) BMI: 23.2 92% (03/12/2024 15:21) REVIEW OF SYSTEMS: HEENT: Head congestion no sore throat cough slight headache. No fever RESPIRATORY: Productive cough, no SOA, wheezing. CARDIOVASCULAR: No chest pain, palpitations, tachycardia, PND, or orthopnea. MUSCULOSKELETAL: No muscle or joint pain. SKIN: No rash, lesions, or infection PSYCH: No depression and anxious at this time. Not suicidal. 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 STORE INHALER IN SCRIPT COORDINATOR AT ROOM TEMPERATURE UNTIL READY TO OPEN. [...] MOUTH THREE TIMES A ACTIVE DAY NEEDED 19 Total Medications OBJECTIVE: Physical Exam General: NAD noted, A&Ox3, pleasant, appears stated age Heart: RRR, no murmur, clicks, or rub Resp: Lungs on auscultation slightly coarse, no increase in shortness of breath respirations even and unlabored Abdomen: Soft, non-distended, non-tender Ext: No clubbing, cyanosis, edema or obvious deformity Neuro: Grossly intact Psych: Affect normal, answers questions appropriately throughout visit Assessment/Plan: Bronchitis -current Plan to call doxycycline, steroids, and Tessalon pearls to [place] [facility] at [facility] here in [place]. Follow-up: ____as needed. Discussed with patient that in the event of community imaging / testing being ordered in the future, once the imaging / testing has been completed, please notify PACT of completion at outside facility if not called with results within 1 week by a [place] PACT member; this is due to intermittent lapses in notification of imaging completion within [facility]. All questions answered; agrees to plan of care. Follow up as listed above, annually, and as needed. Keep all appointments. Medications Reconciled. See AVS given to [place]. Time spent 30 minutes. Sridevi CARLISLE /ajay/ BERNA Mason, MSN, Randy Norrishing [facility] Signed: 03/13/2024 11:33 SRIDEVI STEWARD [facility] Mar 12, 2024 03:04 PM PRIMARY CARE NURSI NG NOTE: LOCAL TITLE: PRIMARY CARE NURSING PROGRESS NOTE (TEXT) NURSING P STANDARD TITLE: PRIMARY CARE NURSING NOTE DATE OF NOTE: MAR 12, 2024@15:04 ENTRY DATE: MAR 12, 2024@15:04:46 AUTHOR: ALAN LONGORIA EXP COSIGNER: URGENCY: STATUS: COMPLETED PRIMARY CARE NURSING PROGRESS NOTE (TEXT) NURSING PB Has ADDENDA Established Patient ABDULLAHI WILSON IS A 68 YEAR OLD MALE BEING SEEN IN CLINIC MAR 12, 2024. = = REASON FOR VISIT: Worsening chest congestion. Symptoms began Fever, body aches, sinus congestion and productive cough dark brown sputum. Increased short of brath with activity. Are you receiving care any where other than the [facility]? No HEALTH AND SURGICAL HISTORY: No new surgeries Does patient report using home oxygen? Yes; Current Oxygen Flow Rate: 3L CURRENT ACTIVE MEDICATIONS FOR REVIEW: Allergies/ADRs (Tool #5) FACILITY ALLERGY/ADR -------- [facility] PENICILLIN [facility] PENICILLIN [facility] ROSUVASTATIN [facility] SIMVASTATIN Med. Reconciliation (Tool #1) INCLUDED IN THIS LIST: Alphabetical list of active outpatient prescriptions dispensed from this [place] (local) and dispensed from another [place] or [facility] facility (remote) as well as inpatient orders (local pending and active), local clinic medications, locally documented non-VA medications, and local prescriptions that have or been discontinued in the past 90 days. Non-VA Meds Last Documented On: Sep 11, 2019 NOTE The display of VA prescriptions dispensed from another [place] or [facility] facility (remote) is limited to active outpatient prescription entries matched to National Drug File at the originating site and may not include some items such as investigational drugs, compounds, etc. NOT INCLUDED IN THIS LIST: Medications self-entered by the patient into personal health records (i.e. [facility]) are NOT included in this list. Non-VA medications documented outside this [place], remote inpatient orders (regardless of status) and [...] RINSE MOUTHPIECE FREQUENTLY TO PREVENT CLOGGING. Rx# [id number] Last Released: 01/26/24 Qty/Days Supply: Rx Expiration Date: 03/31/24 Refills Remainin OUTPT ALBUTEROL SO4 0.083% INHL 3ML (Status = Active) INHALE 1 VIAL (2.5MG/3ML) BY NEBULIZATION EVERY 6 HOURS DIRECTED FOR COPD Rx# [id number] Last Released: 01/26/24 Qty/Days Supply: 360 Rx Expiration Date: 09/04/24 Refills Remainin Indication: FOR COPD Non-VA ALPRAZOLAM 0.25MG TAB TAKE ONE TABLET BY MOUTH THREE TIMES A DAY NEEDED Medication prescribed by Non-VA provider. OUTPT APIXABAN 5MG TAB (Status = Active) TAKE ONE TABLET BY MOUTH TWICE A DAY FOR ANTICOAGULATION Rx# [id number] Last Released: 01/26/24 Qty/Days Supply: 180 Rx Expiration Date: 09/20/24 Refills Remainin Indication: FOR ANTICOAGULATION OUTPT CALCIUM 500MG (CA CARB-1.25GM) TAB (Status = Active) TAKE ONE TABLET BY MOUTH TWICE A DAY FOR DIET SUPPLEMENTATION. Rx# [id number] Last Released: 06/08/23 Qty/Days Supply: 180 Rx Expiration Date: 03/31/24 Refills Remainin OUTPT CETIRIZINE HCL 10MG TAB (Status = Active) TAKE ONE TABLET BY MOUTH ONCE A DAY NEEDED FOR ALLERGY SYMPTOMS. Rx# [id number] Last Released: 01/24/24 Qty/Days Supply: Rx Expiration Date: 03/31/24 Refills Remainin Indication: FOR ALLERGY SYMPTOMS OUTPT CHOLECALCIF 50MCG (D3-2,000UNIT) TAB (Status = Active) TAKE TWO TABLETS BY MOUTH ONCE A DAY FOR VITAMIN D DEFICIENCY. Rx# [id number] Last Released: 01/25/24 Qty/Days Supply: 200/ Rx Expiration Date: 03/31/24 Refills Remainin OUTPT CYCLOBENZAPRINE HCL 10MG TAB (Status = Active) TAKE ONE TABLET BY MOUTH THREE TIMES A DAY FOR MUSCLE SPASM MAY CAUSE DROWSINESS. DO NOT DRINK ALCOHOL WHILE TAKING THIS MEDICATION. Rx# [id number] Last Released: 12/21/23 Qty/Days Supply: 270/90 Rx Expiration Date: 12/15/24 Refills Remainin Indication: FOR MUSCLE SPASM OUTPT EZETIMIBE 10MG TAB (Status = Discontinued) TAKE ONE TABLET BY MOUTH ONCE A DAY Rx# [id number] Last Released: 11/07/23 Qty/Days Supply: 60/60 Rx Expiration Date: 01/02/24 Refills Remainin OUTPT EZETIMIBE 10MG TAB (Status = Active/Suspended) TAKE ONE TABLET BY MOUTH ONCE A DAY Rx# [id number] Last Released: 02/22/24 Qty/Days Supply: 90 Rx Expiration Date: 02/20/25 Refills Remainin OUTPT FLUTICASONE PROP 50MCG 120D NASAL INHL (Status = Active) INSTILL 1 SPRAY IN NOSTRIL(S) TWICE A DAY FOR ALLERGIES (MUST BE USED DIRECTED FOR MINIMUM OF 21 DAYS TO PROVIDE ADEQUATE BENEFITS) Rx# [id number] Last Released: 06/08/23 Qty/Days Supply: 3 Rx Expiration Date: 03/31/24 Refills Remainin OUTPT GABAPENTIN 300MG CAP (Status = Active) TAKE ONE CAPSULE BY MOUTH THREE TIMES A DAY FOR PAIN Rx# [id number] Last Released: 06/08/23 Qty/Days Supply: 270/90 Rx Expiration Date: 03/31/24 Refills Remainin OUTPT GUAIFENESIN 400MG TAB (Status = Active) TAKE ONE TABLET BY MOUTH EVERY 4 HOURS NEEDED TO THIN MUCUS. TAKE WITH 8 OUNCE GLASS OF WATER. Rx# [id number] Last Released: 12/05/23 Qty/Days Supply: 300/90 Rx Expiration Date: 03/31/24 Refills Remainin OUTPT HYDROXYZINE HCL 25MG TAB (Status = Active) TAKE ONE TABLET BY MOUTH THREE TIMES A DAY NEEDED FOR ANXIETY *MAY CAUSE DROWSINESS* Rx# [id number] Last Released: 12/16/23 Qty/Days Supply: 270/90 Rx Expiration Date: 12/15/24 Refills Remainin Indication: FOR ANXIETY OUTPT MOMETASONE FUROATE 110MCG ORAL INHL 30 (Status = Active) INHALE 2 PUFFS BY MOUTH ONCE A DAY FOR BREATHING. RINSE MOUTH OUT WITH WATER AND SPIT AFTER EACH DOSE. STORE INHALER IN SCRIPT COORDINATOR AT ROOM TEMPERATURE UNTIL READY TO OPEN. DISCARD 45 DAYS AFTER OPENING. Rx# [id number] Last Released: 02/27/24 Qty/Days Supply: Rx Expiration Date: 03/31/24 Refills Remainin OUTPT OLODATEROL/TIOTROP 2.5MCG/ACTUAT 60D INH (Status = Active) INHALE 2 PUFFS BY MOUTH ONCE A DAY ADMINISTER AT SAME TIME EACH DAY FOR BREATHING Rx# [id number] Last Released: 02/23/24 Qty/Days Supply: Rx Expiration Date: 03/31/24 Refills Remainin OUTPT OSIMERTINIB 80MG TAB (Status = Discontinued) TAKE ONE TABLET BY MOUTH ONCE A DAY Rx# [id number] Last Released: 01/23/24 Qty/Days Supply: Rx Expiration Date: 11/11/24 Refills Remainin OUTPT OSIMERTINIB 80MG TAB (Status = Active) TAKE ONE TABLET BY MOUTH ONCE A DAY Rx# [id number] Last Released: 02/28/24 Qty/Days Supply: Rx Expiration Date: 02/22/25 Refills Remainin OUTPT TAMSULOSIN HCL 0.4MG CAP (Status = Active) TAKE ONE CAPSULE BY MOUTH EVERY EVENING APPROXIMATELY 30 MINUTES AFTER THE SAME MEAL EACH DAY (FOR PROSTATE) Rx# [id number] Last Released: 03/02/24 Qty/Days Supply: Rx Expiration Date: 03/31/24 Refills Remainin SUPPLIES OUTPT ACCU-CHEK GUIDE (GLUCOSE) TEST STRIP (Status = ) USE 1 STRIP FOR BLOOD TEST TWO TIMES PER WEEK FOR BLOOD SUGAR MONITORING Rx# [id number] Last Released: 01/10/23 Qty/Days Supply: 50/365 Rx Expiration Date: 01/05/24 Refills Remainin Indication: FOR BLOOD SUGAR MONITORING OUTPT ALCOHOL PREP PAD (Status = Active) USE/APPLY PAD TO AFFECTED AREA(S) TWO TIMES PER WEEK FOR CLEANING AND DISINFECTING SKIN. NEEDED Rx# [id number] Last Released: 05/19/23 Qty/Days Supply: 200/90 Rx Expiration Date: 03/31/24 Refills Remainin OUTPT LANCET,SOFTCLIX (Status = Active) USE LANCET FOR BLOOD TEST TWO TIMES PER WEEK TO MONITOR BLOOD SUGAR. USE DIRECTED. Rx# [id number] Last Released: 06/08/23 Qty/Days Supply: 100/90 Rx Expiration Date: 03/31/24 Refills Remainin PHARMACY TERMS AND POSSIBLE PATIENT ACTIONS [place] = [place] IV = [place] intravenous medication [place] = [place] outpatient prescription PHARMACY POSSIBLE PATIENT TERMS EXPLANATION ACTIONS -------- ---- ACTIVE A prescription that can be If you have refills, filled at the local [place] pharmacy. you may request a refill of this prescription from your [place] pharmacy. CLINIC A medication you received during If you have questions a visit to a [place] clinic or about this medication emergency department. contact your [facility] healthcare team. DISCONTINUED A prescription your provider has Contact your [facility] stopped. It is no longer healthcare team if you available to be sent to you or need more of this picked up at the [place] pharmacy medication. window. A prescription which is [...] the [facility]. Or, it may be an jlng-egv-flcqawf (OTC), herbal, dietary supplements or sample medication. [...] ANY MEDICATIONS PRESCRIBED BY ANOTHER PHYSICIAN? No Taking Oxycodone 10mg every 4 hours as needed ALLERGIES/ADVERSE REACTIONS: PENICILLIN, SIMVASTATIN, ROSUVASTATIN Does patient have any new allergies to report since last visit? NO VITALS: TEMPERATURE: 99 F [37.2 C] (02/20/2024 16:46) BP: 101/53 (02/20/2024 16:46) RESP: 18 (12/15/2023 10:46) PULSE: 96 (02/20/2024 16:46) HT: 69 in [175.3 cm] (06/21/2017 14:36) WT: 155.5 lb [70.53 kg] (12/15/2023 10:46) BMI: 23.0 PAIN ASSESSMENT: (Most Recent Pain Score in Vitals Package: 3 (12/15/2023 10:46) ) The patient indicated that they and [...] Now let us serve you. At the [facility], we strive to provide you [...] Not At All SPIRITUAL ASSESSMENT: Are there anabaptist practices or spiritual concerns you want the vegetable packer, your physician, and other health care team members to immediately know about? No Patient advised to call the clinic for any concerns, questions, or symptoms. Patient and/or caregiver verbalized understanding of plan of care. Suicide Screen - V: C-SSRS Screening [place] Suicide Severity Rating Scale (C-SSRS) screener 1. Over the past month, have you wished you were or wished you could go to sleep and not wake up? No 2. Over the past month, have you had any actual thoughts of killing yourself? No 3. Over the past month, have you been thinking about how you might do this? Response not required due to responses to other questions. 4. Over the past month, have you had these thoughts and had some intention of acting on them? Response not required due to responses to other questions. 5. Over the past month, have you started to work out or worked out the details of how to kill yourself? Response not required due to responses to other questions. 6. If yes, at any time in the past month did you intend to carry out this plan? Response not required due to responses to other questions. 7. In your lifetime, have you ever done anything, started to do anything, or prepared to do anything to end your life (for example, collected pills, obtained a gun, gave away valuables, went to the roof but didn't jump)? No 8. If YES, was this within the past 3 months? Response not required due to responses to other questions. Sexual Orientation - CP,L,N,P,PH,PS,S,U: The patient thinks of their sexual orientation as: Straight or Heterosexual COVID-19 Immunization - L,N,P,PH,U: Refused Moderna Monovalent COVID-19 vaccine Immunization: COVID-19 (MODERNA), MRNA, LNP-S, PF, 50 MCG/0.5 ML (AGES 12+ YEARS) Refusal Reason: PATIENT DECISION Patient refuses all immunization(s) in the COVID-19 group Date Documented: 03/12/24 15:13 Tobacco Use Screening - AT,DE,L,M,N,P,PH,PS,RT,S,U: The patient is a former cigarette smoker. The patient uses other type(s) of tobacco every day. Other Tobacco Type(s) used: Smokeless tobacco (e.g., dip, chew, snuff, snus) Patient was advised to stop smoking and/or using other tobacco products. Advised patient that a combination of behavioral counseling and FDA-approved cessation medications is the most effective way to ensure their success in stopping to smoke and/or using other tobacco products. The patient was not interested in additional information about behavioral counseling and other support strategies discussed. Informed patient that medications can help with cravings and withdrawal symptoms, and they greatly increase the chances of successfully stopping your tobacco use. The patient was not interested in a prescription for tobacco cessation medications. Depression Screening - V: Perform PHQ-2 A PHQ-2 screen was performed. The score was 2 which is a negative screen for depression. Over the past two weeks, how often have you been bothered by the following problems? 1. Little interest or pleasure in doing things Several days 2. Feeling down, depressed, or hopeless Several days Homelessness/Food Insecurity Screen - DI,L,N,P,PH,PS,S,U: In the past 2 months, have you been living in stable housing that you own, rent, or stay in as part of a household? Yes - Living in stable housing. Are you worried or concerned that in the next 2 months you may NOT have stable housing that you own, rent, or stay in as part of a household? No - Not worried about housing near future [facility] reports the following: Within the past 12 months, you worried whether your food would run out before you got money to buy more. Never true Within the past 12 months, the food you bought just didn't last and you didn't have money to get more. Never true Pain Assessment: - PAIN ASSESSMENT: .. This patient's last pain assessment score was: 3 (12/15/2023 10:46). A detailed pain assessment showed the following: Pain characteristics (per patient's own words) Constant, Aching Location of current pain Generalize Joint Pain Onset/Duration of the current pain. Constant or variable? More than a year Patient's self identified pain goal: 0 Herpes Zoster (Shingles) Vaccine - L,N,P,PH,U: The patient declines to receive the recommended dose of zoster (shingles) vaccine. Immunization: ZOSTER RECOMBINANT Refusal Reason: PATIENT DECISION Patient refuses all immunization(s) in the ZOSTER group Date Documented: 03/12/24 15:15 Hepatitis B Immunization - L,N,P,PH,U: The patient declines to receive the recommended dose of Hepatitis B vaccine. Immunization: HEP B, UNSPECIFIED FORMULATION Refusal Reason: PATIENT DECISION Patient refuses all immunization(s) in the HepB group Date Documented: 03/12/24 15:16 Eye Care At-Risk Screen - L,N,PH,U: Patient identified to be at risk for the following eye condition(s): DIABETIC RETINOPATHY: Diabetes Diagnosis Information: Encounter Diagnosis: 07/01/2022@11:00 E11.9 (ICD-10-CM) Type 2 Diabetes Mellitus without Complications rank: SECONDARY Prov. Narr. - Diabetes Mellitus Type 2 ([facility] [id number]) MACULAR DEGENERATION: Macular Degeneration Risk Factors Information: Reminder Term: VA-AMD RISK FACTORS Encounter Diagnosis: 03/14/2018@12:00 I25.10 (ICD-10-CM) Atherosclerotic Heart Disease of [place] Coronary Artery without Angina Pectoris rank: PRIMARY Prov. Narr. 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 Exact date is unknown [place] Comment: Ayaka has macular degeneration. last eye exam was in [facility] 2023 /ajay/ [facility] Signed: 03/12/2024 15:33 03/12/2024 ADDENDUM STATUS: COMPLETED Per A Directive 1605.06, wristband documentation: Patient wristband was removed and destroyed by (staff name) Alan Longoria and placed in the designated [employer] bin. /ajay/ [facility] Signed: 03/12/2024 15:34 [facility]
--- OUTSIDE RECORDS SUMMARY | 2024-04-12 09:45 | XMS_ITS | Encounter Summary ---
Author Name [facility] [place] [facility] [place] Address [address] [place] [id number] Care Team Providers Care Institutional Custodian Name Role Phone LUCA MCBRIDE Primary Care [...] Name Patient's Relationship to Policy Esparza [facility] (WNR) MEDICARE ADVANTAGE [facility] (WNR) Feb 07, 2022 [id number] ASSISTANT DIRECTOR OF ADMISSIONS,Kraig ERRY PATIENT MEDICAID (WNR) MEDICAID MEDIC AID (WNR) Aug 07, 2012 MEDICAI D [id number] ASSISTANT DIRECTOR OF ADMISSIONS,Kraig ERRY PATIENT MEDICARE (WNR) MEDICARE (M) PART A Jul 08, 2012 PART A [id number] ASSISTANT DIRECTOR OF ADMISSIONS,J ERRY PATIENT Selected Encounter This section includes the information on record at [place] for the Encounter. Date/Time Encounter Type Encounter Description Reason Provider Source Apr 12, 2024 02:45 PM OFF/OP EST JUNE X REQ PHY/QHP PRIMARY CARE/MEDICINE ICD-10-CM R04.0 Epistaxis ALAN LONGORIA IHE Encounter Template Text not used by [place] Assessments - Encounter Diagnoses This section includes the primary and secondary diagnoses documented for the Encounter. Date/Time Primary/Secondary Diagnosis Diagnosis Name Provider Source Apr 12, 2024 04:26 PM PRIMARY Epistaxis ALAN LONGORIA [facility] Plan of Treatment: Future Appointments (+ 6 months) and Future Tests (+/- 45 days) The Plan of Treatment section includes future care activities for the patient from all [place] [facility]. This section includes future appointments and future orders which are active, pending or scheduled. Future Appointments This section includes appointments that were scheduled to occur 6 months from the date of the Encounter, up to a maximum of 20 appointments. The data comes from all [place] treatment [facility]. Appointment Date/Time Appointment Type Appointme nt Facility Name Apr 13, 2024 02:45 PM AMBULATORY - [place]IC[place] [facility] May 17, 2024 01:45 PM AMBULATORY - [place]IC[place] [facility] June 28, 2024 01:00 PM AMBULATORY - MEDICINE [facility] Jul 20, 2024 09:00 AM AMBULATORY - MEDICINE [facility] Jul 25, 2024 01:30 PM AMBULATORY - MEDIC[place] [facility] Aug 17, 2024 01:30 PM AMBULATORY - MEDICINE [facility] Aug 21, 2024 02:00 PM [facility] Sep 28, 2024 01:30 PM AMBULATORY - MEDICINE [facility] Active, Pending, and Scheduled Orders This section includes a listing of several types of active, pending, and scheduled orders, including clinic medications orders, diagnostic test orders, procedure orders and consult orders; where the start date of the order is 45 days before the date of the Encounter or 45 days after the date of theEncounter. The data comes from all [facility]. Test Date/Time Test Type Test Details Facility Name Apr 13, 2024 12:00 AM Laboratory - Chemi stry Order APTT BLOOD PLASMA SP [place] [facility] Apr 13, 2024 12:00 AM Laboratory - Chemi stry Order PRO TIME (PB) BLOOD PLASMA SP [facility] Apr 13, 2024 12:00 AM Laboratory - Chemi stry Order CBC BLOOD SP [facility] May 23, 2024 02:56 PM Consult Order [facility]HEMATOLOGY/ONC 657A4 Cons Filling Station Equipment Mechanic's Choice [facility] Lab Results: +/- 30 days of the encounter This section includes the Chemistry and Hematology Lab Results on record with [place] for the patient. Radiology Reports and Pathology Reports are provided separately, in subsequent sections. Lab Results This section contains the Chemistry/Hematology Results that were resulted 30 days before or 30 daysafter the date of the Encounter. Date/Time Source Result Type Result - Unit Interpretation Reference Range Specimen Type Comment Apr 02, 2024 11:20 AM [facility] DIRECT LDL (MA-PB) PLASMA Specimen Type: PLASMA No comment entered. Ordering Provider: MASHA NUNEZ Report Released Date/Time: Nov 18, 2023 06:38 AM Reporting Lab: [place] [facility] [address] [place] [address] Performing Lab: [place] [facility] [address] [place] [address] DIRECT LDL 127.6 mg/dL H 0-99.9 Apr 02, 2024 11:20 AM [facility] VITAMIN D, 25-HYDROXY SERUM Specimen Type: SE RUM No comment entered. Ordering Provider: MASHA NUNEZ Report Released Date/Time: Nov 18, 2023 06:38 AM Reporting Lab: [place] [facility] [address] [place] [address] Performing Lab: [place] [facility] [address] [place] [address] VITAMIN D, 25-HYDROXY 32.0 ng/mL 30-96 Apr 02, 2024 11:20 AM [facility] FOLATE (PB) SERUM Specimen Typ e: SERUM No comment entered. Ordering Provider: MASHA NUNEZ Report Released Date/Time: Nov 18, 2023 06:38 AM Reporting Lab: [place] [facility] [address] [place] [address] Performing Lab: [place] [facility] [address] [place] [address] FOLATE (PB) 9.6 ng/mL 7-20 Apr 02, 2024 11:20 AM [facility] CHOLESTEROL PANEL (PB) PLASMA Specimen Type: P LASMA No comment entered. Ordering Provider: MASHA NUNEZ Report Released Date/Time: Nov 18, 2023 06:38 AM Reporting Lab: [place] [facility] [address] [place] [address] Performing Lab: [place] [facility] [address] [place] [address] CHOLESTEROL 175 mg/dL 0-200 TRIGLYCERIDE 93 mg/dL 0-150 CALCULATED LDL 115.4 mg/dL HDL(New) 41.0 mg/dL H >40 HDL % OF TOTAL CHOLESTEROL (PB) 23.4 >25 Apr 02, 2024 11:20 AM [facility] B12 SERUM Specimen Type: SERUM No comment entered. Ordering Provider: MASHA NUNEZ Report Released Date/Time: Nov 18, 2023 06:38 AM Reporting Lab: [place] [facility] [address] [place] [address] Performing Lab: [place] [facility] [address] [place] [address] B12 870 pg/mL H 213-816 Apr 02, 2024 11:20 AM [facility] HGA1C BLOOD Specimen Type: BLOOD No comment entered. Ordering Provider: MASHA NUNEZ Report Released Date/Time: Nov 18, 2023 06:38 AM Reporting Lab: [place] [facility] [address] [place] [address] Performing Lab: [place] [facility] [address] [place] [address] HGA1C 6.3 H 4.0-6.0 Apr 02, 2024 11:20 AM [facility] COMPREHENSIVE METABOLIC PANEL PLASMA Specimen Type: PLASMA No comment entered. Ordering Provider: AMSHA NUNEZ Report Released Date/Time: Nov 18, 2023 06:38 AM Reporting Lab: [place] [facility] [address] [place] [address] Performing Lab: [place] [facility] [address] [place] [address] CREATININE 1.00 mg/dL 0.7-1.3 UREA NITROGEN 12 [...] 2020) 81 Apr 02, 2024 11:20 AM [facility] CBC BLOOD Specimen Type: BLOOD No comment entered. Ordering Provider: MASHA NUNEZ Report Released Date/Time: Mar 21, 2024 12:33 PM Reporting Lab: [place] [facility] [address] [place] [address] Performing Lab: [place] [facility] [address] [place] [address] WBC 5.1 10*3/uL 3.6-11.2 RBC 3.99 10*6/uL [...] Pain Height Weight Body Mass Index Source Apr 12, 2024 04:02 PM 97.9 84 95/61 92 [facility] Social History: Smoking Status (Most current) and Tobacco Use (All prior to encounter date) This section includes the most current, and the historical, smoking and tobacco- related health factors from the [place] facility where the Encounter took place. Current Smoking Status This section includes the most current smoking, or tobacco-related health factor, from the [place] facility where the Encounter took place. Date/Time Current Smoking Status Comment Facil ity Mar 12, 2024 03:00 PM VA-TOBACCO USE FORMER CIGARETTES [facility] Tobacco Use History This section includes a history of the smoking, or tobacco-related health factors, that were collected on or before the date of the Encounter. The data comes from the [place] facility where the Encounter took place. 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 [facility] Mar 12, 2024 03:00 PM VA-TOBACCO USE EVERY DAY OTHER T [facility] Mar 12, 2024 03:00 PM VA-TOBACCO USE EVERY DAY SMOKELE SS [facility] Mar 12, 2024 03:00 PM VA-TOBACCO USE FORMER CIGARETTES [facility] Mar 12, 2024 03:00 PM VA-TOBACCO USE MED NO [facility] Feb 09, 2023 01:30 PM VA-TOBACCO DOESNT USE WI 30 MIN WAKEUP [facility] Feb 09, 2023 01:30 PM VA-TOBACCO USE 30 YEARS OR MORE [facility] Feb 09, 2023 01:30 PM VA-TOBACCO USE ADVICE [facility] Feb 09, 2023 01:30 PM VA-TOBACCO USE SALES OFFICE MANAGER NO [place] [facility] Feb 09, [...] June 12, 2021 10:30 AM VA-TOBACCO USE SALES OFFICE MANAGER NO [place] [place] [facility] June 12, [...] June 19, 2020 09:30 AM VA-TOBACCO USE SALES OFFICE MANAGER NO [facility] June 19, [...] Mar 16, 2019 01:16 PM VA-TOBACCO USE SALES OFFICE MANAGER NO [place] Mar 16, [...] READY TO QUIT) [facility] [place] Dec 06, 2017 11:08 AM TOBACCO CESSATION REFERRAL [facility] Dec 06, 2017 11:08 AM TOBACCO MEDS OFFERED BUT DECLINE D [place] [place] [place] [facility] Dec 06, 2017 11:08 AM TOBACCO USER OFFERED [facility] June 21, 2017 02:36 PM CURRENT TOBACCO USER [facility] June 21, 2017 02:36 PM CURRENT TOBACCO US ER (NOT READY TO QUIT) [facility] June 21, 2017 02:36 PM TOBACCO CESSATION REFERRAL [facility] June 21, 2017 02:36 PM TOBACCO MEDS OFFERED BUT DECLINE D [place] [facility] June 21, 2017 02:36 PM TOBACCO USER OFFERED [facility] Feb 14, 2017 11:10 AM CURRENT [facility]BACCO USER [facility] Feb 14, 2017 11:10 AM CURRENT TOBACCO US ER (NOT READY TO QUIT) [facility] Feb 14, 2017 11:10 AM TOBACCO CESSATION REFERRAL [facility] Feb 14, 2017 11:10 AM TOBACCO MEDS OFFERED BUT DECLINE D [place] [facility] Feb 14, 2017 11:10 AM TOBACCO USER OFFERED [facility] Sep 13, 2016 01:09 PM CURRENT [facility]BACCO USER [facility] Sep 13, 2016 01:09 PM CURRENT TOBACCO US ER (NOT READY TO QUIT) [facility] Sep 13, 2016 01:09 PM SMOKELESS TOBACCO AMOUNT/L ENGTH V15 50+yr [facility] Sep 13, 2016 01:09 PM TOBACCO CESSATION REFERRAL [facility] Sep 13, 2016 01:09 PM TOBACCO MEDS OFFERED BUT DECLINE D [facility] Sep 13, 2016 01:09 PM TOBACCO USER OFFERED [facility] May 28, 2015 08:05 AM CURRENT [facility]BACCO USER [facility] May 28, 2015 08:05 AM TOBACCO OFFERED STOP SMOKING CLI [facility] Mar 05, 2014 11:00 AM CURRENT [facility]BACCO USER [facility] Mar 05, 2014 11:00 AM TOBACCO OFFERED STOP SMOKING CLI [facility] Apr 02, 2013 01:09 PM CURRENT [facility]BACCO USER [facility] Apr 02, 2013 01:09 PM TOBACCO OFFERED STOP SMOKING CLI [facility] [place] [facility] Apr 19, 2012 01:00 PM CURRENT [facility]ER [facility] Apr 19, 2012 01:00 PM TOBACCO OFFERED STOP SMOKING CLI [facility] [place] [facility] May 24, 2011 01:29 PM TOBACCO MEDS OFFERED BUT DECLINE D [place] May 24, 2011 01:29 PM TOBACCO OFFERED PT MEDS (PROVIDE R) [place] [place] May 24, 2011 01:29 PM TOBACCO OFFERED STOP SMOKING CLI [facility] [place] [facility] Jan 20, 2011 09:00 AM TOBACCO MEDS OFFERED BUT DECLINE D [place] [facility] Jan 20, 2011 09:00 AM TOBACCO OFFERED PT MEDS (PROVIDE R) [place] [facility] Jan 20, 2011 09:00 AM TOBACCO OFFERED STOP SMOKING CLI [facility] [place] [facility] Jan 05, 2011 01:18 PM TOBACCO MEDS OFFERED BUT DECLINE D [place] [facility] Jan 05, 2011 01:18 PM TOBACCO OFFERED PT MEDS (PROVIDE R) [place] [facility] Jan 05, 2011 01:18 PM TOBACCO OFFERED STOP SMOKING CLI [facility] [place] [facility] Dec 22, 2010 10:38 AM TOBACCO MEDS OFFERED BUT DECLINE D [place] [facility] Dec 22, 2010 10:38 AM TOBACCO OFFERED PT MEDS (PROVIDE R) [place] [facility] Dec 22, 2010 10:38 AM TOBACCO OFFERED STOP SMOKING CLI [facility] [place] [facility] Oct 07, 2010 02:10 PM TOBACCO MEDS OFFERED BUT DECLINE D [place] [facility] Oct 07, 2010 02:10 PM TOBACCO OFFERED PT MEDS (PROVIDE R) [place] [facility] Oct 07, 2010 02:10 PM TOBACCO OFFERED STOP SMOKING CLI [facility] [place] [facility] Sep 21, 2010 10:56 AM TOBACCO MEDS OFFERED BUT DECLINE D [place] [facility] Sep 21, 2010 10:56 AM TOBACCO OFFERED PT MEDS (PROVIDE R) [place] [facility] Sep 21, 2010 10:56 AM TOBACCO OFFERED STOP SMOKING CLI [facility] [place] [facility] Aug 24, 2010 01:39 PM TOBACCO MEDS OFFERED BUT DECLINE D [place] [facility] Aug 24, 2010 01:39 PM TOBACCO OFFERED PT MEDS (PROVIDE R) [place] [facility] Aug 24, 2010 01:39 PM TOBACCO OFFERED STOP SMOKING CLI [facility] [place] [facility] Jul 29, 2010 08:40 AM CURRENT TOBACCO USER [facility] Jul 29, 2010 08:40 AM TOBACCO MEDS OFFERED BUT DECLINE D [facility] Jul 29, 2010 08:40 AM TOBACCO OFFERED PT MEDS (PROVIDE R) [facility] Jul 29, 2010 08:40 AM TOBACCO OFFERED STOP SMOKING CLI [facility] Mar 05, 2010 01:10 PM TOBACCO OFFERED PT MEDS (PROVIDE R) [facility] Mar 05, 2010 01:10 PM TOBACCO OFFERED STOP SMOKING CLI [facility] Mar 05, 2010 01:10 PM TOBACCO OFFERRED PT MEDS (PROVID ER) [facility] June 11, 2009 12:52 PM TOBACCO MEDS OFFERED BUT DECLINE D [facility] June 11, 2009 12:52 PM TOBACCO OFFERED PT MEDS (PROVIDE R) [facility] June 11, 2009 12:52 PM TOBACCO OFFERED STOP SMOKING CLI [facility] May 02, 2009 10:48 AM CURRENT TOBACCO USER [facility] May 02, 2009 10:48 AM TOBACCO MEDS OFFERED [facility] May 02, 2009 10:48 AM TOBACCO OFFERED PT MEDS (PROVIDE R) [facility] May 02, 2009 10:48 AM TOBACCO OFFERED STOP SMOKING CLI [facility] Advance Directives: All historical and current Section Date Range: From patient's date of to the date document was created. This section includes ALL of a patient's completed or amended [place] Advance and Rescinded Directives. The entries below indicate that a directive exists for the patient, but an actual copy is not included with this document. The data comes from all [place] facilities. Date Advance Directives Provider Source Oct 09, 2021 ADVANCE DIRECTIVE BRADY FITZPATRICK [facility] Aug 24, 2010 ADVANCE DIRECTIVE DISCUSSION MEIR AKHTAR [facility] Encounter Notes: All associated encounter notes This section contains the clinical notes associated to the Encounter. Date/Time Encounter Note(s) Provider Source Apr 13, 2024 12:24 PM TELEPHONE ENCOUNTE R NOTE: LOCAL TITLE: TELEPHONE NOTE STANDARD TITLE: TELEPHONE ENCOUNTER NOTE DATE OF NOTE: APR 13, 2024@12:24 ENTRY DATE: APR 13, 2024@12:24:40 AUTHOR: ALAN LONGORIA EXP COSIGNER: URGENCY: STATUS: COMPLETED Returned call to . Conyers states he went to ER and was not seen and after waiting 3 hours left. Conyers reports he is still having intermittent nose bleeds. Reviewed with Provider, Provider recommends Conyers to report to clinic for lab draw or report back to ER and notify them that he has had intermittent nose bleeds for 5 days and is taking Eliquis and has symptoms of fatigue with slight hypotension. Conyers reports he can make it to clinic prior to lab closing so he will report to ER. ER consult had been placed by Provider yesterday. /ajay/ Alan Longoria RN BSN MELVI Cotto [facility] Signed: 04/13/2024 12:44 Receipt Acknowledged By: 04/13/2024 13:53 /ajay/ BERNA Mason, MSN, Melvi Cotto [facility] ALAN LONGORIA [facility] Apr 12, 2024 03:31 PM NURSING PROGRESS N OTE: LOCAL TITLE: NURSING NOTE PB STANDARD TITLE: NURSING PROGRESS NOTE DATE OF NOTE: APR 12, 2024@15:31 ENTRY DATE: APR 12, 2024@15:32:02 AUTHOR: ALAN LONGORIA EXP COSIGNER: URGENCY: STATUS: COMPLETED NURSING NOTE PB Has ADDENDA This is a 68 year old MALE with known Allergies as noted: PENICILLIN, SIMVASTATIN, ROSUVASTATIN On the following Active Medications: Active Outpatient Medications (including Supplies): Active Outpatient Medications Status 1) ALBUTEROL SO4 0.083% INHL 3ML INHALE 1 VIAL (2.5MG/3ML) BY ACTIVE NEBULIZATION EVERY 6 HOURS DIRECTED Indication: FOR COPD 2) APIXABAN 5MG TAB TAKE ONE TABLET BY MOUTH TWICE A DAY ACTIVE Indication: FOR ANTICOAGULATION 3) CYCLOBENZAPRINE HCL 10MG TAB TAKE ONE TABLET BY MOUTH ONCE A ACTIVE/PARKED DAY NEEDED MAY CAUSE DROWSINESS. DO NOT DRINK ALCOHOL WHILE TAKING THIS MEDICATION. Indication: FOR MUSCLE SPASM 4) EZETIMIBE 10MG TAB TAKE ONE TABLET BY MOUTH ONCE A DAY ACTIVE (S) 5) HYDROXYZINE HCL 25MG TAB TAKE ONE TABLET BY MOUTH THREE ACTIVE TIMES A DAY NEEDED *MAY CAUSE DROWSINESS* Indication: FOR ANXIETY 6) MOMETASONE FUROATE 110MCG ORAL INHL 30 INHALE 2 PUFFS BY ACTIVE (S) MOUTH ONCE A DAY FOR BREATHING. RINSE MOUTH OUT WITH WATER AND SPIT AFTER EACH DOSE. 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 DISCARD 45 DAYS AFTER OPENING. 7) OLODATEROL/TIOTROP 2.5MCG/ACTUAT 60D INH INHALE 2 PUFFS BY ACTIVE (S) MOUTH ONCE A DAY ADMINISTER AT SAME TIME EACH DAY FOR BREATHING 8) OSIMERTINIB 80MG TAB TAKE ONE TABLET BY MOUTH ONCE A DAY ACTIVE 9) TAMSULOSIN HCL 0.4MG CAP TAKE ONE CAPSULE BY MOUTH EVERY ACTIVE (S) EVENING APPROXIMATELY 30 MINUTES AFTER THE SAME MEAL EACH DAY (FOR PROSTATE) Active Non-VA Medications Status 1) Non-VA ALPRAZOLAM 0.25MG TAB 0.25MG BY MOUTH THREE TIMES A ACTIVE DAY NEEDED 2) Non-VA APPLE CIDER VINEGAR CAP/TAB 1 CAP/TAB BY MOUTH ONCE A ACTIVE DAY Indication: supplement 11 Total Medications C/C: Nose Bleed S: presents to the clinic as a walk-in. Conyers reports a 5 day history of nose bleeds. Conyers reports an intermittent trickle of blood and when he gets it to stop and blows his nose he will blow out a clot. Conyers reports increased fatigue over the last 5 days. O/A: Conyers ambulated to exam room with steady gait and no assistance. alert and oriented x4 with unlabored breathing. Mucus membranes moist and pink, nailbeds pale, cap refill <3 seconds. wearing 3LNC. Lungs are clear but diminished in the bases bilaterally. Vital Signs: see cover sheet Weight: 153.3 pounds P: Reviewed with Provider. Provider recommendations, report to ER for lab work and interventions. Advised of the recommendations. Conyers is in agreement with the plan. Conyers declines EMS transport stating his is with him and she will drive him. Consult to be entered by Provider. Report called to [facility] Nurse [email or web address] RTC: Report to ER now. /es/ Alan Longoria RN BSN MELVI Cotto [facility] Signed: 04/12/2024 16:24 Receipt Acknowledged By: 04/13/2024 07:16 /ajay/ BERNA Mason, MSN, Melvi Cotto [facility] 04/12/2024 ADDENDUM STATUS: COMPLETED Per A Directive 1605.06, wristband documentation: Patient wristband was removed and destroyed by (staff name) Alan Longoria and placed in the designated [employer] bin. /ajay/ Alan Longoria RN BSN MELVI Cotto [facility] Signed: 04/12/2024 16:28 ALAN LONGORIA [facility]
--- OUTSIDE RECORDS SUMMARY | 2024-06-28 08:00 | XMS_ITS | Encounter Summary ---
Author Name [facility] [place] [facility] [place] [facility] [place] [place] [facility] [place] Address [address], [place] [address] Care Team Providers Care Manager Study Name Role Phone LUCA MCBRIDE Primary Care [...] Name Patient's Relationship to Policy Esparza HUMANA [facility] (R) MEDICARE ADVANTAGE [facility] ([facility]) Feb 07, 2022 [id number] [employer]ERRICK [employer],J ERRY PATIENT MEDICAID (WNR) MEDICAID MEDIC AID (WN) Aug 07, 2012 MEDICAI D [id number] [employer]ERRICK [employer],J ERRY PATIENT MEDICARE ([facility]) MEDICARE (M) PART A Jul 08, 2012 PART A [id number] [phone] [employer],J ERRY PATIENT Selected Encounter This section includes the information on record at [place] for the Encounter. Date/Time Encounter Type Encounter Description Reason Provider Source June 28, 2024 01:00 PM OFFICE O/P EST MOD 30 MIN PRIMARY CARE/MEDICINE ICD-10-CM J44.9 Chronic obstructive pulmonary disease, unspecified SRIDEVI STEWARD Wolfgang Encounter Template Text not used by [place] Assessments - Encounter Diagnoses This section includes the primary and secondary diagnoses documented for the Encounter. Date/Time Primary/Secondary Diagnosis Diagnosis Name Provider Source June 28, 2024 02:36 PM PRIMARY Chronic obstructive pulmonary disease, unspecified SRIDEVI STEWARD [facility] June 28, 2024 02:36 PM SECONDARY Encntr for f/u exam aft trtmt for cond oth than malig neoplm SRIDEVI STEWARD [facility] June 28, 2024 02:36 PM SECONDARY Pneumonia, unspecified organism SRIDEVI STEWARD [facility] Plan of Treatment: Future Appointments (+ 6 months) and Future Tests (+/- 45 days) The Plan of Treatment section includes future care activities for the patient [facility] [place] [facility] This section includes future appointments and future orders which are active, pending or scheduled. Future Appointments This section includes appointments that were scheduled to occur 6 months from the date of the Encounter, up to a maximum of 20 appointments. The data comes from all [facility]. Appointment Date/Time Appointment Type Appointme nt Facility Name Jul 20, 2024 09:00 AM AMBULATORY - MEDICINE [facility] Jul 25, 2024 01:30 PM AMBULATORY - MEDICINE [facility] Aug 17, 2024 01:30 PM AMBULATORY - MEDICINE [facility] Aug 21, 2024 02:00 PM AMBULATORY - SURGERY POPLA R [facility] Sep 28, 2024 01:30 PM AMBULATORY - MEDICINE [facility] Dec 27, 2024 01:00 PM AMBULATORY - MEDICINE [facility] Active, Pending, and Scheduled Orders This section includes a listing of several types of active, pending, and scheduled orders, including clinic medications orders, diagnostic test orders, procedure orders and consult orders; where the start date of the order is 45 days before the date of the Encounter or 45 days after the date of theEncounter. The data comes from all [facility]. Test Date/Time Test Type Test Details Facility Name May 23, 2024 02:56 PM Consult Order COMMUNITY CARE-HEMATOLOGY/ONC 657A4 Cons Stress Engineer's Choice JACK PUGA [facility] Vital Signs: All taken on the encounter date This section contains inpatient and outpatient Vital Signs collected on the date of the Encounter. Date/Time Temperature Pulse Blood Pressure Respiratory Rate SP02 Pain Height Weight Body Mass Index Source June 28, 2024 01:25 PM 98.0 78 122/64 18 92 4 153.8 23 [facility] Social History: Smoking Status (Most current) and Tobacco Use (All prior to encounter date) This section includes the most current, and the historical, smoking and tobacco- related health factors from the [place] facility where the Encounter took place. Current Smoking Status This section includes the most current smoking, or tobacco-related health factor, from the [place] facility where the Encounter took place. Date/Time Current Smoking Status Comment Facil ity Mar 12, 2024 03:00 PM VA-TOBACCO USE FORMER CIGARETTES [facility] Tobacco Use History This section includes a history of the smoking, or tobacco-related health factors, that were collected on or before the date of the Encounter. The data comes from the [place] facility where the Encounter took place. Date/Time Smoking Status/Tobacco Use Comment F acility Mar 12, 2024 03:00 PM VA-TOBACCO USE ADVICE [facility] Mar 12, 2024 03:00 PM VA-TOBACCO USE CLINICAL PROJECT COORDINATOR NO [facility] Mar 12, 2024 03:00 PM VA-TOBACCO USE EVERY DAY OTHER T [facility] Mar 12, 2024 03:00 PM VA-TOBACCO USE EVERY DAY SMOKELE [facility] Mar 12, 2024 03:00 PM VA-TOBACCO USE FORMER CIGARETTES [facility] Mar 12, 2024 03:00 PM VA-TOBACCO USE MED NO [facility] Feb 09, 2023 01:30 PM VA-TOBACCO DOESNT USE WI 30 MIN WAKEUP [facility] Feb 09, 2023 01:30 PM VA-TOBACCO USE 30 YEARS OR MORE [facility] Feb 09, 2023 01:30 PM VA-TOBACCO USE ADVICE [facility] Feb 09, 2023 01:30 PM VA-TOBACCO USE CLINICAL PROJECT COORDINATOR NO [facility] Feb 09, 2023 01:30 PM VA-TOBACCO USE MED NO [facility] Feb 09, 2023 01:30 PM VA-TOBACCO USER SOME DAYS [facility] June 12, 2021 10:30 AM VA-TOBACCO USE 30 YEARS OR MORE [facility] June 12, 2021 10:30 AM VA-TOBACCO USE ADVICE [facility] June 12, 2021 10:30 AM VA-TOBACCO USE CLINICAL PROJECT COORDINATOR NO [facility] June 12, 2021 10:30 AM VA-TOBACCO USE MED NO [facility] June 12, 2021 10:30 AM VA-TOBACCO USE WI 30 MIN OF WAKE UP [facility] June 12, 2021 10:30 AM VA-TOBACCO USER EVERY DAY [facility] June 19, 2020 09:30 AM VA-TOBACCO USE 30 YEARS OR MORE [facility] June 19, 2020 09:30 AM VA-TOBACCO USE ADVICE [facility] June 19, 2020 09:30 AM VA-TOBACCO USE CLINICAL PROJECT COORDINATOR NO [facility] June 19, 2020 09:30 AM VA-TOBACCO USE MED NO [facility] June 19, 2020 09:30 AM VA-TOBACCO USE WI 30 MIN OF WAKE UP [facility] June 19, 2020 09:30 AM VA-TOBACCO USER EVERY DAY [facility] Mar 16, 2019 01:16 PM VA-TOBACCO USE 30 YEARS OR MORE [facility] Mar 16, 2019 01:16 PM VA-TOBACCO USE ADVICE [facility] Mar 16, 2019 01:16 PM VA-TOBACCO USE CLINICAL PROJECT COORDINATOR NO [facility] Mar 16, 2019 01:16 PM VA-TOBACCO USE MED NO [facility] Mar 16, 2019 01:16 PM VA-TOBACCO USE WI 30 MIN OF WAKE UP [facility] Mar 16, 2019 01:16 PM VA-TOBACCO USER EVERY DAY [facility] Dec 06, 2017 11:08 AM CURRENT TOBACCO USER [facility] Dec 06, 2017 11:08 AM CURRENT TOBACCO US ER (NOT READY TO QUIT) [facility] Dec 06, 2017 11:08 AM TOBACCO CESSATION REFERRAL DECLI SRUTHI [facility] Dec 06, 2017 11:08 AM TOBACCO MEDS OFFERED BUT DECLINE D [facility] Dec 06, 2017 11:08 AM TOBACCO USER OFFERED MEDS [facility] June 21, 2017 02:36 PM CURRENT TOBACCO USER [facility] June 21, 2017 02:36 PM CURRENT TOBACCO US ER (NOT READY TO QUIT) [facility] June 21, 2017 02:36 PM TOBACCO CESSATION REFERRAL DECLI SRUTHI [facility] June 21, 2017 02:36 PM TOBACCO MEDS OFFERED BUT DECLINE D [facility] June 21, 2017 02:36 PM TOBACCO USER OFFERED MEDS [facility] Feb 14, 2017 11:10 AM CURRENT TOBACCO USER [facility] Feb 14, 2017 11:10 AM CURRENT TOBACCO US ER (NOT READY TO QUIT) [facility] Feb 14, 2017 11:10 AM TOBACCO CESSATION REFERRAL DECLI SRUTHI [facility] Feb 14, 2017 11:10 AM TOBACCO MEDS OFFERED BUT DECLINE D [facility] Feb 14, 2017 11:10 AM TOBACCO USER OFFERED MEDS [facility] Sep 13, 2016 01:09 PM CURRENT TOBACCO USER [facility] Sep 13, 2016 01:09 PM CURRENT TOBACCO US ER (NOT READY TO QUIT) [facility] Sep 13, 2016 01:09 PM SMOKELESS TOBACCO AMOUNT/L ENGTH V15 50+yr [facility] Sep 13, 2016 01:09 PM TOBACCO CESSATION REFERRAL DECLI SRUTHI [facility] Sep 13, 2016 01:09 PM TOBACCO MEDS OFFERED BUT DECLINE D [facility] Sep 13, 2016 01:09 PM TOBACCO USER OFFERED MEDS [facility] May 28, 2015 08:05 AM CURRENT TOBACCO USER [facility] May 28, 2015 08:05 AM TOBACCO OFFERED STOP SMOKING CLI BIANCA [facility] Mar 05, 2014 11:00 AM CURRENT TOBACCO USER [facility] Mar 05, 2014 11:00 AM TOBACCO OFFERED STOP SMOKING CLI BIANCA [facility] Apr 02, 2013 01:09 PM CURRENT TOBACCO USER [facility] Apr 02, 2013 01:09 PM TOBACCO OFFERED STOP SMOKING CLI BIANCA [facility] Apr 19, 2012 01:00 PM CURRENT TOBACCO USER [facility] Apr 19, 2012 01:00 PM TOBACCO OFFERED STOP SMOKING CLI BIANCA [facility] May 24, 2011 01:29 PM TOBACCO MEDS OFFERED BUT DECLINE D [facility] May 24, 2011 01:29 PM TOBACCO OFFERED PT MEDS (PROVIDE R) [facility] May 24, 2011 01:29 PM TOBACCO OFFERED STOP SMOKING CLI BIANCA [facility] Jan 20, 2011 09:00 AM TOBACCO MEDS OFFERED BUT DECLINE D [facility] Jan 20, 2011 09:00 AM TOBACCO OFFERED PT MEDS (PROVIDE R) [facility] Jan 20, 2011 09:00 AM TOBACCO OFFERED STOP SMOKING CLI BIANCA [facility] Jan 05, 2011 01:18 PM TOBACCO MEDS OFFERED BUT DECLINE D [facility] Jan 05, 2011 01:18 PM TOBACCO OFFERED PT MEDS (PROVIDE R) [facility] Jan 05, 2011 01:18 PM TOBACCO OFFERED STOP SMOKING CLI BIANCA [facility] Dec 22, 2010 10:38 AM TOBACCO MEDS OFFERED BUT DECLINE D [facility] Dec 22, 2010 10:38 AM TOBACCO OFFERED PT MEDS (PROVIDE R) [facility] Dec 22, 2010 10:38 AM TOBACCO OFFERED STOP SMOKING CLI BIANCA [facility] Oct 07, 2010 02:10 PM TOBACCO MEDS OFFERED BUT DECLINE D [facility] Oct 07, 2010 02:10 PM TOBACCO OFFERED PT MEDS (PROVIDE R) [facility] Oct 07, 2010 02:10 PM TOBACCO OFFERED STOP SMOKING CLI BIANCA [facility] Sep 21, 2010 10:56 AM TOBACCO MEDS OFFERED BUT DECLINE D [facility] Sep 21, 2010 10:56 AM TOBACCO OFFERED PT MEDS (PROVIDE R) [facility] Sep 21, 2010 10:56 AM TOBACCO OFFERED STOP SMOKING CLI BIANCA [facility] Aug 24, 2010 01:39 PM TOBACCO MEDS OFFERED BUT DECLINE D [facility] Aug 24, 2010 01:39 PM TOBACCO OFFERED PT MEDS (PROVIDE R) [facility] Aug 24, 2010 01:39 PM TOBACCO OFFERED STOP SMOKING CLI BIANCA [facility] Jul 29, 2010 08:40 AM CURRENT TOBACCO USER [facility] Jul 29, 2010 08:40 AM TOBACCO MEDS OFFERED BUT DECLINE D [facility] Jul 29, 2010 08:40 AM TOBACCO OFFERED PT MEDS (PROVIDE R) [facility] Jul 29, 2010 08:40 AM TOBACCO OFFERED STOP SMOKING CLI BIANCA [facility] Mar 05, 2010 01:10 PM TOBACCO OFFERED PT MEDS (PROVIDE R) [facility] Mar 05, 2010 01:10 PM TOBACCO OFFERED STOP SMOKING CLI BIANCA [facility] Mar 05, 2010 01:10 PM TOBACCO OFFERRED PT MEDS (PROVID ER) [facility] June 11, 2009 12:52 PM TOBACCO MEDS OFFERED BUT DECLINE D [facility] June 11, 2009 12:52 PM TOBACCO OFFERED PT MEDS (PROVIDE R) [facility] June 11, 2009 12:52 PM TOBACCO OFFERED STOP SMOKING CLI BIANCA [facility] May 02, 2009 10:48 AM CURRENT TOBACCO USER [facility] May 02, 2009 10:48 AM TOBACCO MEDS OFFERED BUT DECLINE D [facility] May 02, 2009 10:48 AM TOBACCO OFFERED PT MEDS (PROVIDE R) [facility] May 02, 2009 10:48 AM TOBACCO OFFERED STOP SMOKING CLI BIANCA [facility] Advance Directives: All historical and current Section Date Range: From patient's date of to the date document was created. This section includes ALL of a patient's completed or amended [place] Advance and Rescinded Directives. The entries below indicate that a directive exists for the patient, but an actual copy is not included with this document. The data comes from all [place] facilities. Date Advance Directives Provider Source Oct 09, 2021 ADVANCE DIRECTIVE BRADY FITZPATRICK [facility] Aug 24, 2010 ADVANCE DIRECTIVE DISCUSSION MEIR AKHTAR [facility] Encounter Notes: All associated encounter notes This section contains the clinical notes associated to the Encounter. Date/Time Encounter Note(s) Provider Source June 28, 2024 02:12 PM PRIMARY CARE PROGR ESS NOTE: LOCAL TITLE: PRIMARY CARE CLINIC PROGRESS NOTE PB STANDARD TITLE: PRIMARY CARE PROGRESS NOTE DATE OF NOTE: JUNE 28, 2024@14:12 ENTRY DATE: JUNE 28, 2024@14:12:49 AUTHOR: SRIDEVI STEWARD EXP COSIGNER: URGENCY: STATUS: COMPLETED Date & Time: June@14:12 This is a 68 year old MALE Allergies: PENICILLIN, SIMVASTATIN, ROSUVASTATIN CC: ER follow-up HPI: presented today for ER follow-up following an episode in the hospital for pneumonia. currently has lung cancer and is being treated from [facility] oncology group. I will update 's medication list. Loretto is having a lot of dependent back pain and neuropathy pain. 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 Temperature: 98.0 F [36.7 C] (06/28/2024 13:25) Respiratory Rate: 18 (06/28/2024 13:25) Pulse Rate: 78 (06/28/2024 13:25) Blood Pressure: 122/64 (06/28/2024 13:25) HT: 69 in [175.3 cm] (06/21/2017 14:36) WT: 153.8 lb [69.76 kg] (06/28/2024 13:25) BMI: 22.8 92% (06/28/2024 13:25) REVIEW OF SYSTEMS: RESPIRATORY: Productive cough with shortness of breath at times wears oxygen continuously. CARDIOVASCULAR: No chest pain, palpitations, tachycardia, PND, or orthopnea. MUSCULOSKELETAL: No muscle or joint pain. SKIN: No rash, lesions, or infection PSYCH: No depression and anxious at this time. Not suicidal. 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 RINSE MOUTH OUT WITH WATER AND SPIT AFTER EACH DOSE. STORE INHALER IN FRONT DESK PERSON AT ROOM TEMPERATURE UNTIL READY TO OPEN. [...] ACTIVE DAY Indication: supplement 11 Total Medications OBJECTIVE: Physical Exam General: NAD noted, A&Ox3, pleasant, appears stated age Heart: RRR, no murmur, clicks, or rub Resp: Lungs on auscultation scattered wheezing Rales rhonchi coarse, respirations even and unlabored Abdomen: Soft, non-distended, non-tender Ext: No clubbing, cyanosis, edema or obvious deformity Neuro: Grossly intact paved test intact starting to have neuropathy to bilateral lower extremities psych: Affect normal, answers questions appropriately throughout visit Assessment/Plan: ER follow-up -current Plan to continue current plan of care Pneumonia -current Plan to continue current med antibiotics and follow up as needed COPD -current Plan to continue current medications Follow-up: ___6__ months and/or as needed. Discussed with patient that in the event of community imaging / testing being ordered in the future, once the imaging / testing has been completed, please notify PACT of completion at outside facility if not called with results within 1 week by a [facility] PACT member; this is due to intermittent lapses in notification of imaging completion within [facility]. All questions answered; agrees to plan of care. Follow up as listed above, annually, and as needed. Keep all appointments. Medications Reconciled. See AVS given to . Time spent 30 minutes. Sridevi CORONEL-BC *ELEVATED LDL DIABETIC: No lipid treatment change is needed based on patient's current status. Comment: refused any medication changes at this time The benefits of maintaining a healthy weight range were explained to the patient. *ELEVATED LDL: No lipid treatment change is needed based on patient's current status. Comment: refused any medication changes at this time The benefits of maintaining a healthy weight range were explained to the patient. /ajay/ BERNA Mason, MSN, Melvi Pillai [facility] Signed: 06/28/2024 14:41 SRIDEVI STEWARD [facility] June 28, 2024 01:08 PM PRIMARY CARE ALEX NG NOTE: LOCAL TITLE: PRIMARY CARE NURSING PROGRESS NOTE (TEXT) NURSING P STANDARD TITLE: PRIMARY CARE NURSING NOTE DATE OF NOTE: JUNE 28, 2024@13:08 ENTRY DATE: JUNE 28, 2024@13:08:23 AUTHOR: ALAN LONGORIA COSIGNER: URGENCY: STATUS: COMPLETED Established Patient ABDULLAHI WILSON IS A 68 YEAR OLD MALE BEING SEEN IN CLINIC JUNE 28, 2024. 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 Hospital follow for Pnuemonia. Bilateral foot sensitivity/numbness. reports he has Black mold in the home. Are you receiving care any where other than the [facility]? No HEALTH AND SURGICAL HISTORY: No new surgeries Does patient report using home oxygen? Yes; Current Oxygen Flow Rate: 3L NC CURRENT ACTIVE MEDICATIONS FOR REVIEW: If the list for review does not include a component, then it was not applicable to this patient. Allergies/ADRs (Tool #5) FACILITY ALLERGY/ADR -------- [facility] PENICILLIN [facility] PENICILLIN [facility] ROSUVASTATIN [facility] SIMVASTATIN Med. Reconciliation (Tool #1) INCLUDED IN THIS LIST: Alphabetical list of active outpatient prescriptions dispensed from this [place] (local) and dispensed from another [place] or [facility] facility (remote) as well as inpatient orders (local pending and active), local clinic medications, locally documented non-VA medications, and local prescriptions that have or been discontinued in the past 90 days. Non-VA Meds Last Documented On: Apr 06, 2024 NOTE The display of VA prescriptions dispensed from another [place] or [facility] facility (remote) is limited to active outpatient prescription entries matched to National Drug File at the originating site and may not include some items such as investigational drugs, compounds, etc. NOT INCLUDED IN THIS LIST: Medications self-entered by the patient into personal health records (i.e. [employer]) are NOT included in this list. Non-VA medications documented outside this [place], remote inpatient orders (regardless of status) and remote clinic medications are NOT included in this list. The patient and provider must always discuss medications the patient is taking, regardless of where the medication was dispensed or obtained. OUTPT ALBUTEROL 90MCG (CFC-F) 200D ORAL INHL (Status = ) INHALE 2 PUFFS BY ORAL INHALATION FOUR TIMES A DAY NEEDED FOR BREATHING. SHAKE WELL. RINSE MOUTHPIECE FREQUENTLY TO PREVENT CLOGGING. Rx# [id number] Last Released: 01/26/24 Qty/Days Supply: Rx Expiration Date: 03/31/24 Refills Remainin OUTPT ALBUTEROL SO4 0.083% INHL 3ML (Status = Active) INHALE 1 VIAL (2.5MG/3ML) BY NEBULIZATION EVERY 6 HOURS DIRECTED FOR COPD Rx# [id number] Last Released: 01/26/24 Qty/Days Supply: Rx Expiration Date: 09/04/24 Refills Remainin Indication: FOR COPD Non-VA ALPRAZOLAM 0.25MG TAB TAKE ONE TABLET BY MOUTH THREE TIMES A DAY NEEDED Medication prescribed by Non-VA provider. OUTPT APIXABAN 5MG TAB (Status = Active) TAKE ONE TABLET BY MOUTH TWICE A DAY FOR ANTICOAGULATION Rx# [id number] Last Released: 04/26/24 Qty/Days Supply: 180 Rx Expiration Date: 09/20/24 Refills Remainin Indication: FOR ANTICOAGULATION Non-VA APPLE CIDER VINEGAR CAP/TAB TAKE 1 CAP/TAB BY MOUTH ONCE A DAY Apr 06, 2024 [place] RX: Non-VA medication recommended by [place] provider [place] RX: Patient wants to buy from Non-VA pharmacy Indication: supplement OUTPT CALCIUM 500MG (CA CARB-1.25GM) TAB (Status = ) TAKE ONE TABLET BY MOUTH TWICE A DAY FOR DIET SUPPLEMENTATION. Rx# [id number] Last Released: 06/08/23 Qty/Days Supply: 180/ Rx Expiration Date: 03/31/24 Refills Remainin OUTPT CETIRIZINE HCL 10MG TAB (Status = ) TAKE ONE TABLET BY MOUTH ONCE A DAY NEEDED FOR ALLERGY SYMPTOMS. Rx# [id number] Last Released: 01/24/24 Qty/Days Supply: 90 Rx Expiration Date: 03/31/24 Refills Remainin Indication: FOR ALLERGY SYMPTOMS OUTPT CHOLECALCIF 50MCG (D3-2,000UNIT) TAB (Status = ) TAKE TWO TABLETS BY MOUTH ONCE A DAY FOR VITAMIN D DEFICIENCY. Rx# [id number] Last Released: 01/25/24 Qty/Days Supply: 200/ Rx Expiration Date: 03/31/24 Refills Remainin OUTPT CYCLOBENZAPRINE HCL 10MG TAB (Status = Active/Parked) TAKE ONE TABLET BY MOUTH ONCE A DAY NEEDED FOR MUSCLE SPASM MAY CAUSE DROWSINESS. DO NOT DRINK ALCOHOL WHILE TAKING THIS MEDICATION. Rx# [id number] Last Released: Qty/Days Supply: Rx Expiration Date: 03/22/25 Refills Remainin Indication: FOR MUSCLE SPASM OUTPT EZETIMIBE 10MG TAB (Status = Active) TAKE ONE TABLET BY MOUTH ONCE A DAY Rx# [id number] Last Released: 04/30/24 Qty/Days Supply: 90 Rx Expiration Date: 02/20/25 Refills Remainin OUTPT FLUTICASONE PROP 50MCG 120D NASAL INHL (Status = ) INSTILL 1 SPRAY IN NOSTRIL(S) TWICE A DAY FOR ALLERGIES (MUST BE USED DIRECTED FOR MINIMUM OF 21 DAYS TO PROVIDE ADEQUATE BENEFITS) Rx# [id number] Last Released: 06/08/23 Qty/Days Supply: Rx Expiration Date: 03/31/24 Refills Remainin OUTPT GABAPENTIN 300MG CAP (Status = ) TAKE ONE CAPSULE BY MOUTH THREE TIMES A DAY FOR PAIN Rx# [id number] Last Released: 06/08/23 Qty/Days Supply: Rx Expiration Date: 03/31/24 Refills Remainin OUTPT GUAIFENESIN 400MG TAB (Status = ) TAKE ONE TABLET BY MOUTH EVERY 4 HOURS NEEDED TO THIN MUCUS. TAKE WITH 8 OUNCE GLASS OF WATER. Rx# [id number] Last Released: 12/05/23 Qty/Days Supply: 300 Rx Expiration Date: 03/31/24 Refills Remainin OUTPT HYDROXYZINE HCL 25MG TAB (Status = Discontinued) TAKE ONE TABLET BY MOUTH THREE TIMES A DAY NEEDED FOR ANXIETY *MAY CAUSE DROWSINESS* Rx# [id number] Last Released: 12/16/23 Qty/Days Supply: Rx Expiration Date: 12/15/24 Refills Remainin Indication: FOR ANXIETY OUTPT HYDROXYZINE HCL 25MG TAB (Status = Active) TAKE ONE TABLET BY MOUTH THREE TIMES A DAY NEEDED FOR ANXIETY *MAY CAUSE DROWSINESS* Rx# [id number] Last Released: 06/11/24 Qty/Days Supply: Rx Expiration Date: 06/09/25 Refills Remainin Indication: FOR ANXIETY OUTPT MOMETASONE FUROATE 110MCG ORAL INHL 30 (Status = Active) INHALE 2 PUFFS BY MOUTH ONCE A DAY FOR BREATHING. RINSE MOUTH OUT WITH WATER AND SPIT AFTER EACH DOSE. STORE INHALER IN FRONT DESK PERSON AT ROOM TEMPERATURE UNTIL READY TO OPEN. DISCARD 45 DAYS AFTER OPENING. Rx# [id number] Last Released: 05/18/24 Qty/Days Supply: Rx Expiration Date: 03/22/25 Refills Remainin OUTPT OLODATEROL/TIOTROP 2.5MCG/ACTUAT 60D INH (Status = Discontinued) INHALE 2 PUFFS BY MOUTH ONCE A DAY ADMINISTER AT SAME TIME EACH DAY FOR BREATHING Rx# [id number] Last Released: 02/23/24 Qty/Days Supply: Rx Expiration Date: 03/31/24 Refills Remainin OUTPT OLODATEROL/TIOTROP 2.5MCG/ACTUAT 60D INH (Status = Active) INHALE 2 PUFFS BY MOUTH ONCE A DAY ADMINISTER AT SAME TIME EACH DAY FOR BREATHING Rx# [id number] Last Released: 05/18/24 Qty/Days Supply: Rx Expiration Date: 04/07/25 Refills Remainin OUTPT OSIMERTINIB 80MG TAB (Status = Discontinued) TAKE ONE TABLET BY MOUTH ONCE A DAY Rx# [id number] Last Released: 04/25/24 Qty/Days Supply: Rx Expiration Date: 02/22/25 Refills Remainin OUTPT OSIMERTINIB 80MG TAB (Status = Active) TAKE ONE TABLET BY MOUTH ONCE A DAY Rx# [id number] Last Released: 05/31/24 Qty/Days Supply: Rx Expiration Date: 05/30/25 Refills Remainin OUTPT TAMSULOSIN HCL 0.4MG CAP (Status = Discontinued) TAKE ONE CAPSULE BY MOUTH EVERY EVENING APPROXIMATELY 30 MINUTES AFTER THE SAME MEAL EACH DAY (FOR PROSTATE) Rx# [id number] Last Released: 03/02/24 Qty/Days Supply: Rx Expiration Date: 03/31/24 Refills Remainin OUTPT TAMSULOSIN HCL 0.4MG CAP (Status = Active) TAKE ONE CAPSULE BY MOUTH EVERY EVENING APPROXIMATELY 30 MINUTES AFTER THE SAME MEAL EACH DAY (FOR PROSTATE) Rx# [id number] Last Released: 05/18/24 Qty/Days Supply: Rx Expiration Date: 04/07/25 Refills Remainin SUPPLIES OUTPT ALCOHOL PREP PAD (Status = ) USE/APPLY PAD TO AFFECTED AREA(S) TWO TIMES PER WEEK FOR CLEANING AND DISINFECTING SKIN. NEEDED Rx# [id number] Last Released: 05/19/23 Qty/Days Supply: 200/90 Rx Expiration Date: 03/31/24 Refills Remainin OUTPT LANCET,SOFTCLIX (Status = ) USE LANCET FOR BLOOD TEST TWO TIMES PER WEEK TO MONITOR BLOOD SUGAR. USE DIRECTED. Rx# [id number] Last Released: 06/08/23 Qty/Days Supply: 100/90 Rx Expiration Date: 03/31/24 Refills Remainin PHARMACY TERMS AND POSSIBLE PATIENT ACTIONS INPT = [place] inpatient order IV = [place] intravenous medication OUTPT = [place] outpatient prescription PHARMACY POSSIBLE PATIENT TERMS EXPLANATION ACTIONS -------- ---- ACTIVE A prescription that can be If you have refills, filled at the local [place] pharmacy. you may request a refill of this prescription from your [place] pharmacy. CLINIC A medication you received during If you have questions a visit to a [place] clinic or about this medication emergency department. contact your [place] healthcare team. DISCONTINUED A prescription your provider has Contact your [facility] stopped. It is no longer healthcare team if you available to be sent to you or need more of this picked up at the [place] pharmacy medication. window. A prescription which is [...] the [facility]. Or, it may be an [id number]-etfgzzw (OTC), herbal, dietary supplements or sample medication. [...] An active prescription that is Contact your [place] not scheduled to be filled yet. pharmacy if you need You should receive it before this medication now. you run out. Medication list reviewed with Patient Patient/Caregiver reports taking medications as ordered. IS PATIENT TAKING ANY OVER THE COUNTER MEDICATIONS, SUCH VITAMINS OR HERBAL SUPPLEMENTS, INCLUDING ANY MEDICATIONS PRESCRIBED BY ANOTHER PHYSICIAN? Yes, List: Oxycodone 10mg PRN Does patient have any new allergies to report since last visit? YES VITALS: TEMPERATURE: 97.9 F [36.6 C] (04/12/2024 16:02) BP: 95/61 (04/12/2024 16:02) RESP: 20 (03/12/2024 15:21) PULSE: 84 (04/12/2024 16:02) HT: 69 in [175.3 cm] (06/21/2017 14:36) WT: 157.1 lb [71.26 kg] (03/12/2024 15:21) BMI: 23.2 PAIN ASSESSMENT: (Most Recent Pain Score in Vitals Package: 4 (03/12/2024 15:21) ) The patient indicated that they and [...] Now let us serve you. At the [facility], we strive to provide you [...] Not At All SPIRITUAL ASSESSMENT: Are there mosque practices or spiritual concerns you want the copy holder, your physician, and other health care team members to immediately know about? No Patient advised to call the clinic for any concerns, questions, or symptoms. Patient and/or caregiver verbalized understanding of plan of care. Follow Up Colonoscopy - L,N,P,PH: Colonoscopy is due based on information available to this reminder. Patient declined screening/surveillance. Alcohol Use Screen (AUDIT-C) - V: Alcohol Screen: SCREEN FOR ALCOHOL (AUDIT-C) An alcohol screening test (AUDIT-C) was negative (score=0). 1. How often did you have a drink containing alcohol in the past year? Consider a drink to be a 12 ounce can or bottle of regular beer, 8 ounces of malt liquor, a 5 ounce glass of table wine, or a 1.5 ounce shot of liquor (like scotch, gin, or vodka). Never 2. How many drinks containing alcohol did you have on a typical day when you were drinking in the past year? Response not required due to responses to other questions. 3. How often did you have six or more drinks on one occasion in the past year? Response not required due to responses to other questions. PAVE Foot Check - L,N,P,PH,PO,PT,U: A complete foot check was completed at this encounter. VISUAL INSPECTION: Includes inspection for skin breaks, deformity, erythema, trauma, pallor on elevation, dependent rubor, nail deformities, extensive callus and pitting edema. Visual exam results: Normal PEDAL PULSES: Includes palpation of dorsalis and posterior tibial pulses and signs/symptoms of vascular compromise like pain, pallor, paresthesia or paralysis. Present (even if diminished) SENSORY CHECK: Includes 10 gram Monofilament (Keystone-Michelle) test of sensation. Intact (Greater than or equal to 80% of sites checked) Abnormal (Less than 80% of sites checked): Intact LOW-RISK: LOW RISK INFORMATION PROVIDED: 1. Advised patient not to walk barefoot. 2. Explained the importance of daily foot checks for changes. 3. Stressed the importance of daily foot hygiene, including bathing and complete drying. COVID-19 Immunization-L,N,P,PH,U: Refused Moderna Monovalent COVID-19 vaccine Immunization: COVID-19 (MODERNA), MRNA, LNP-S, PF, 50 MCG/0.5 ML (AGES 12+ YEARS) Refusal Reason: PATIENT DECISION Patient refuses all immunization(s) in the COVID-19 group Date Documented: 06/28/24 13:39 Pain Assessment: - PAIN ASSESSMENT: .. This patient's last pain assessment score was: 4 (06/28/2024 13:25). A detailed pain assessment showed the following: Pain characteristics (per patient's own words) Constant, Aching Location of current pain Generalize Joint Pain, Low Back Onset/Duration of the current pain. Constant or variable? More than a year Patient's self identified pain goal: 0 Herpes Zoster (Shingles) Vaccine - L,N,P,PH,U: The patient declines to receive the recommended dose of zoster (shingles) vaccine. Immunization: ZOSTER RECOMBINANT Refusal Reason: PATIENT DECISION Patient refuses all immunization(s) in the ZOSTER group Date Documented: 06/28/24 13:40 Hepatitis B Immunization - L,N,P,PH,U: The patient declines to receive the recommended dose of Hepatitis B vaccine. Immunization: HEP B, UNSPECIFIED FORMULATION Refusal Reason: PATIENT DECISION Patient refuses all immunization(s) in the HepB group Date Documented: 06/28/24 13:40 /ajay/ Alan Longoria RN BSN [facility] Signed: 06/28/2024 13:40 ALAN LONGORIA [facility]
--- OUTSIDE RECORDS SUMMARY | 2024-08-16 00:43 | XMS_ITS | Encounter Summary ---
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 Date/Time Encounter Type Encounter Description Reason Pro vider Source Aug 16, 2024 05:43 AM Outpatient Encounter COMMUNITY CARE CONSULT IHE Encounter Template Text not used by [place] Plan of Treatment: Future Appointments (+ 6 months) and Future Tests (+/- 45 days) The Plan of Treatment section includes future care activities for the patient from all [place] treatmentfacilities. This section includes future appointments and future orders which are active, pending or scheduled. Future Appointments This section includes appointments that were scheduled to occur 6 months from the date of the Encounter, up to a maximum of 20 appointments. The data comes from all [place] treatment facilities. Appointment Date/Time Appointment Type Appointme nt Facility Name Aug 17, 2024 01:30 PM AMBULATORY - MEDICINE [facility] Aug 21, 2024 02:00 PM AMBULATORY - SURGERY ASHTYN PÉREZ [facility] Sep 28, 2024 01:30 PM AMBULATORY - MEDICINE [facility] Dec 27, 2024 01:00 PM AMBULATORY - MEDICINE [facility] Active, Pending, and Scheduled Orders This section includes a listing of several types of active, pending, and scheduled orders, including clinic medications orders, diagnostic test orders, procedure orders and consult orders; where the start date of the order is 45 days before the date of the Encounter or 45 days after the date of theEncounter. The data comes from all [facility]. Test Date/Time Test Type Test Details Facility Name Aug 17, 2024 02:06 PM Consult Order COMMUNITY CARE-SURGERY [id number] Cons Unit Coordinator's Choice [facility] Social History: Smoking Status (Most current) and Tobacco Use (All prior to encounter date) This section includes the most current, and the historical, smoking and tobacco- related health factors from the [place] facility where the Encounter took place. Current Smoking Status This section includes the most current smoking, or tobacco-related health factor, from the [place] facility where the Encounter took place. Date/Time Current Smoking Status Comment Ailyn contreras Jul 11, 2015 09:34 AM TOBACCO OFFERED PT MEDS (PROVIDER) [facility] Tobacco Use History This section includes a history of the smoking, or tobacco-related health factors, that were collected on or before the date of the Encounter. The data comes from the [place] facility where the Encounter took place. Date/Time Smoking Status/Tobacco Use Comment F acbrigido Jul 11, 2015 09:34 AM TOBACCO OFFERED PT MEDS (PROVIDER) [facility] Jul 11, 2015 09:[address] [facility] SMOKING CLINIC [facility] Dec 28, 2010 01:25 PM CURRENT TOBACCO USER [facility] Advance Directives: All historical and current Section Date Range: From patient's date of to the date document was created. This section includes ALL of a patient's completed or amended [place] Advance and Rescinded Directives. The entries below indicate that a directive exists for the patient, but an actual copy is not included with this document. The data comes from all [place] facilities. Date Advance Directives Provider Source Oct 09, 2021 ADVANCE DIRECTIVE BRADY FITZPATRICK [facility] Aug 24, 2010 ADVANCE DIRECTIVE DISCUSSION MEIR AKHTAR [facility] Encounter Notes: All associated encounter notes This section contains the clinical notes associated to the Encounter. Date/Time Encounter Note(s) Provider Source Aug 16, 2024 05:48 AM LETTERS: LOCAL TITLE: COMMUNITY CARE-REQUEST FOR SERVICES (RFS) LETTER PB STANDARD TITLE: LETTERS DATE OF NOTE: AUG 16, 2024@05:48 ENTRY DATE: AUG 16, 2024@05:48:15 AUTHOR: JACQUE SILVER EXP COSIGNER: URGENCY: STATUS: COMPLETED Dr. Gino Grossman [facility] General Surgery [address], [place] P: [phone] F: [phone] Dear Provider, Information: Patient Name: ABDULLAHI WILSON JEAN CARLOS Date of : Oct The Randy Norrishing [facility] has received the request for continuation of care from you for this . Upon review, the following determination has been made: A new consult has been entered for the requested services and is being reviewed. Once the consult has been approved and processed, a new authorization will be faxed to the appropriate office. No action is required by your office at this time. Studies/procedures must be completed at an in network [facility] provider. This is required for payment purposes. Should you have questions, please contact us at [phone] ext [phone] to speak with a patient rn women services. As a reminder, if applicable, return medical records within 30 days for routine services. Sincerely, Community Care Staff JACQUE SILVER [facility] Aug 16, 2024 05:44 AM NONVA NOTE: LOCAL TITLE: COMMUNITY CARE-REQUEST FOR SERVICE NOTE PB STANDARD TITLE: NONVA NOTE DATE OF NOTE: AUG 16, 2024@05:44 ENTRY DATE: AUG 16, 2024@05:44:46 AUTHOR: JACQUE SILVER EXP COSIGNER: URGENCY: STATUS: COMPLETED COMMUNITY CARE-REQUEST FOR SERVICE NOTE PB Has ADDENDA Request for Services (RFS) documentation has been sent for scanning to [facility] Community Care Consult: COMMUNITY CARE-SURGERY Consult No: [id number] Date sent to scanning: Aug A Request for Service (RFS) form [id number] has been received which includes the following: Care Requested:RFS received from Dr. Gino Grossman with [facility] General Surgery requesting continuation of care for Metastatic Non-small cell lung cancer, Malignant neoplasm of the liver S/P biopsy and chemoembolization of left hepatic artery. Next scheduled appointment 08/21/2024 @ 1400. Dx: C22.9 ICD-10 Dx code: Date VA received request: Aug Date service required: Aug Requesting [facility] Provider Information: Dr. Gino Grossman [facility] General Surgery [address], [place] P: [phone] F: [phone] /es/ JACQUE SILVER RN Signed: 08/16/2024 05:48 08/20/2024 ADDENDUM STATUS: COMPLETED [facility] Scanned Document - Addendum. Request for Services (RFS) documentation has been sent for scanning to [facility] Community Care Consult: COMMUNITY CARE-SURGERY Consult No: [id number] Date sent to scanning: Aug SCANNED DOCUMENT SIGNATURE NOT REQUIRED Electronically Filed: 08/20/2024 by: JACQUE Leal [facility]
--- OUTSIDE RECORDS SUMMARY | 2024-08-17 08:30 | XMS_ITS | Encounter Summary ---
Author Name [place] Address [address] [place] [address] Care Team Providers Care Acid Strength Inspector Name Role Phone LUCA MCBRIDE Primary Care [...] Name Patient's Relationship to Policy Esparza HUMANA [facility] (WNR) MEDICARE ADVANTAGE [facility] ([facility]) Feb 07, 2022 [id number] CASEWORKER,J ERRY PATIENT MEDICAID (WNR) MEDICAID MEDIC AID (WNR) Aug 07, 2012 MEDICAI D [id number] [phone] CASEWORKER,J ERRY PATIENT MEDICARE (WNR) MEDICARE (M) PART A Jul 08, 2012 PART A [id number] [phone] CASEWORKER,J ERRY PATIENT Selected Encounter This section includes the information on record at [place] for the Encounter. Date/Time Encounter Type Encounter Description Reason Provider Source Aug 17, 2024 01:30 PM MTMS BY CHRISTY MENDEZ 15 MIN TELEPHONE PRIMARY CARE ICD-10-CM J44.9 Chronic obstructive pulmonary disease, unspecified TERRY ABREU E Encounter Template Text not used by [place] Assessments - Encounter Diagnoses This section includes the primary and secondary diagnoses documented for the Encounter. Date/Time Primary/Secondary Diagnosis Diagnosis Name Provider Source Aug 17, 2024 01:30 PM PRIMARY Chronic obstructive pulmonary disease, unspecified BRADYTERRY RODRIGUEZ [facility] Aug 17, 2024 01:30 PM SECONDARY Encounter for therapeutic drug level monitoring TERRY ABREU [facility] Aug 17, 2024 01:30 PM SECONDARY Generalized anxiety disorder TERRY ABREU [facility] Plan of Treatment: Future Appointments (+ 6 months) and Future Tests (+/- 45 days) The Plan of Treatment section includes future care activities for the patient [facility] [place] [facility]. This section includes future appointments and future orders which are active, pending or scheduled. Future Appointments This section includes appointments that were scheduled to occur 6 months from the date of the Encounter, up to a maximum of 20 appointments. The data comes from all [place] treatment facilities. Appointment Date/Time Appointment Type Appointme nt Facility Name Aug 21, 2024 02:00 PM AMBULATORY - SURGERY ASHTYN PÉREZ [facility] Sep 28, 2024 01:30 PM AMBULATORY - MEDICINE [facility] Dec 27, 2024 01:00 PM AMBULATORY - MEDICINE [facility] Active, Pending, and Scheduled Orders This section includes a listing of several types of active, pending, and scheduled orders, including clinic medications orders, diagnostic test orders, procedure orders and consult orders; where thestart date of the order is 45 days before the date of the Encounter or 45 days after the date of the Encounter. The data comes from all [place] treatment facilities. Test Date/Time Test Type Test Details Facility Name Aug 17, 2024 02:06 PM Consult Order COMMUNITY CARE-SURGERY [id number] Cons Tobacco Stemmer Machine's Choice JACK PÉREZ [facility] Advance Directives: All historical and current Section Date Range: From patient's date of to the date document was created. This section includes ALL of a patient's completed or amended [place] Advance and Rescinded Directives. The entries below indicate that a directive exists for the patient, but an actual copy is not included with this document. The data comes from all [place] facilities. Date Advance Directives Provider Source Oct 09, 2021 ADVANCE DIRECTIVE BRADY FITZPATRICK [facility] Aug 24, 2010 ADVANCE DIRECTIVE DISCUSSION MEIR AKHTAR [facility] Encounter Notes: All associated encounter notes This section contains the clinical notes associated to the Encounter. Date/Time Encounter Note(s) Provider Source Aug 17, 2024 12:26 PM PHARMACY NOTE: LOCAL TITLE: PHARMACY CHRONIC DISEASE STATE MANAGEMENT PB STANDARD TITLE: PHARMACY NOTE DATE OF NOTE: AUG 17, 2024@12:26 ENTRY DATE: AUG 17, 2024@12:26:23 AUTHOR: TERRY ABREU EXP COSIGNER: URGENCY: STATUS: COMPLETED SUBJECTIVE ABDULLAHI is a 68 year old MALE contacted by PACT clinical pharmacist for COPD follow-up. (x) Phone () F2F () [facility] try landline first: [phone] reports the following since last visit: -able to do more outside outside before becoming winded -using albuterol HFA 2-3 per week -strange dreams starting up again and would take a xanax or valium, but cancer doctor stopped them -states the dreams are coming back and he is waiting for the other shoe to drop and he is on alert -asking for assistance with non-benzodiazepine since hydroxyzine is not working Summary of PACT CPP visits: 07/20/24: > d/c Wixela > hold mometasone twist inhaler > d/c apple cider vinegar > continue Stiolto COPD History: Recent exacerbation: yes, 06/25/24 -reports he has had pneumonia several times over the past several years -denies history of asthma and/or bronchitis as child or adult 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, 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 Tobacco use: former smoker, quit 2 years ago (2-3ppd, started 9 y/o) OBJECTIVE Allergies/ADR's:PENICILLIN, SIMVASTATIN, ROSUVASTATIN Last Vitals: Height:69 in [175.3 cm] (06/21/2017 14:36) Weight: 153.8 lb [69.76 kg] (06/28/2024 13:25) BMI: 22.8 BP: 122/64 (06/28/2024 13:25) HR: 78 (06/28/2024 13:25) Pulse Ox: 92% (06/28/2024 13:25) Pertinent Medical Conditions: 1) Coronary artery disease (SNOMED CT 94498462) 2) Chronic obstructive lung disease (SNOMED CT 56905768) 3) HLD - Hyperlipidemia (SNOMED CT 97063234) 4) Essential hypertension (SNOMED CT 71256302) 5) Essential hypertension (SNOMED CT 41834951) 6) Knee joint painful on movement 7) Low back pain 8) Abdominal aortic aneurysm without rupture (SNOMED CT 38936515) 9) Chronic obstructive lung disease (SNOMED CT 90352597) 10) Chronic pain (SNOMED CT 82029267) 11) Polyp of colon 12) Generalized anxiety disorder 13) 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 RINSE MOUTHPIECE FREQUENTLY TO PREVENT CLOGGING. Indication: FOR COPD 2) ALBUTEROL SO4 0.083% INHL 3ML INHALE 1 VIAL (2.5MG/3ML) BY ACTIVE NEBULIZATION EVERY 6 HOURS DIRECTED Indication: FOR COPD 3) ALCOHOL PREP PAD USE/APPLY PAD TO AFFECTED AREA(S) ONCE A ACTIVE DAY NEEDED Indication: FOR SKIN CLEANSING 4) APIXABAN 5MG TAB TAKE ONE TABLET BY MOUTH TWICE A DAY ACTIVE Indication: FOR ANTICOAGULATION 5) CALCIUM 500MG (CA CARB-1.25GM) TAB TAKE ONE TABLET BY MOUTH ACTIVE TWICE A DAY Indication: FOR CALCIUM SUPPLEMENTATION 6) CETIRIZINE HCL 10MG TAB TAKE ONE TABLET BY MOUTH ONCE A DAY ACTIVE Indication: FOR ALLERGY SYMPTOMS 7) CHOLECALCIF 50MCG (D3-2,000UNIT) TAB TAKE ONE TABLET BY ACTIVE MOUTH ONCE A DAY Indication: FOR VITAMIN D DEFICIENCY 8) CYCLOBENZAPRINE HCL 10MG TAB TAKE ONE TABLET BY MOUTH ONCE A ACTIVE DAY NEEDED MAY CAUSE DROWSINESS. DO NOT DRINK ALCOHOL WHILE TAKING THIS MEDICATION. Indication: FOR MUSCLE SPASM 9) EZETIMIBE 10MG TAB TAKE ONE TABLET BY MOUTH ONCE A DAY ACTIVE 10) FLUTICASONE PROP 50MCG 120D NASAL INHL INSTILL 1 SPRAY IN ACTIVE NOSTRIL(S) ONCE A DAY (MUST BE USED DIRECTED FOR MINIMUM OF 21 DAYS TO PROVIDE ADEQUATE BENEFITS) Indication: FOR CHRONIC RHINOSINUSITIS 11) GABAPENTIN 300MG CAP TAKE ONE CAPSULE BY MOUTH THREE TIMES A ACTIVE DAY Indication: FOR NERVE PAIN 12) GUAIFENESIN 400MG TAB TAKE ONE TABLET BY MOUTH EVERY 4 HOURS ACTIVE NEEDED TAKE WITH 8 OUNCE GLASS OF WATER. Indication: FOR MUCUS THINNING 13) HYDROXYZINE HCL 25MG TAB TAKE ONE TABLET BY MOUTH THREE ACTIVE TIMES A DAY NEEDED *MAY CAUSE DROWSINESS* Indication: FOR ANXIETY 14) LANCET,SOFTCLIX USE LANCET FOR BLOOD TEST TWO TIMES PER WEEK ACTIVE USE DIRECTED. Indication: FOR BLOOD SUGAR MONITORING 15) MOMETASONE FUROATE 110MCG ORAL INHL 30 INHALE 2 PUFFS BY ACTIVE MOUTH ONCE A DAY FOR BREATHING. RINSE MOUTH OUT WITH WATER AND SPIT AFTER EACH DOSE. STORE INHALER IN [facility]ILDREN'S [facility] NURSERY AT ROOM TEMPERATURE UNTIL READY TO OPEN. DISCARD 45 DAYS AFTER OPENING. 16) OLODATEROL/TIOTROP 2.5MCG/ACTUAT 60D INH INHALE 2 PUFFS BY ACTIVE MOUTH ONCE A DAY ADMINISTER AT SAME TIME EACH DAY FOR BREATHING 17) TAMSULOSIN HCL 0.4MG CAP TAKE ONE CAPSULE BY MOUTH EVERY ACTIVE EVENING APPROXIMATELY 30 MINUTES AFTER THE SAME MEAL EACH DAY (FOR PROSTATE) Pending Outpatient Medications Status 1) OSIMERTINIB 80MG TAB TAKE ONE TABLET BY MOUTH ONCE A DAY PENDING Inactive Outpatient Medications Status 1) OSIMERTINIB 80MG TAB TAKE ONE TABLET BY MOUTH ONCE A DAY Labs: SODIUM 142 mEq/L 04/02/2024 11:20 POTASSIUM 4.6 mEq/L 04/02/2024 11:20 CHLORIDE 109 H mEq/L 04/02/2024 11:20 UREA NITROGEN 12 mg/dL 04/02/2024 11:20 CREATININE 1.00 mg/dL 04/02/2024 11:20 CALCIUM 9.3 mg/dL 04/02/2024 11:20 CARBON DIOXIDE 25 mEq/L 04/02/2024 11:20 GLUCOSE 95 mg/dL 04/02/2024 11:20 EGFR (CKD-EPI 2020) 81 04/02/2024 11:20 EOSINOPHILS, ABSOLUTE 0.16 10*3/uL 04/02/2024 11:20 No Pulmonary Function Test for this patient. ASSESSMENT / PLAN 1. COPD GOALS of therapy: optimize inhalers to improve pulmonary symptoms and reduce risk/severity of exacerbations per ATS, VADoD, and GOLD statements. UNCONFIRMED diagnosis of COPD Exacerbations past year: 1 Most recent: 06/25/24 CAT score: deferred GOLD grade: GOLD category: EOS,abs: 160 Rescue inhaler use: minimal MEDICATION EDUCATION PROVIDED: -benefit, administration, and safety -rescue vs. maintenance MEDICATIONS: Continue: -albuterol HFA prn -tiotropium/olodaterol 2 puffs daily 2. MOOD -answered questions regarding benzodiazepine safety and possible reasoning behind the medications being discontinued -discussed benefits/risks with SSRI maintenance therapy in helping prevent symtoms. [place] aware that it is daily therapy versus as needed CHANGE: -trial escitalopram 5mg daily in AM [place] (and/or caregiver) advised of recent labs and verbalized a good understanding of all discussed. Questions were answered to veterans satisfaction. Time spent with : phone: 15 minutes Documentation/Care Coordination/Chart review: 10 minutes Return to clinic: 1 month /es/ TERRY ABREU PHARMD, [facility] CLINICAL PHARMACIST PRACTITIONER Signed: 08/17/2024 16:54 TERRY ABREU [facility]
--- OUTSIDE RECORDS SUMMARY | 2024-08-20 07:38 | XMS_ITS | Encounter Summary ---
Author Name [place] Address [address] [place] [address] Care Team Providers Care Labor Commissioner Name Role Phone LUCA MCBRIDE Primary Care [...] Name Patient's Relationship to Policy Esparza HUMANA [facility] (WNR) MEDICARE ADVANTAGE [facility] ([facility]) Feb 07, 2022 [id number] BUTTON TUFTING MACHINE OPERATOR,J ERRY PATIENT MEDICAID (WNR) MEDICAID MEDIC AID (WNR) Aug 07, 2012 MEDICAI D [id number] [phone] BUTTON TUFTING MACHINE OPERATOR,J ERRY PATIENT MEDICARE (WNR) MEDICARE (M) PART A Jul 08, 2012 PART A [id number] [phone] BUTTON TUFTING MACHINE OPERATOR,J ERRY PATIENT Selected Encounter This section includes the information on record at [place] for the Encounter. Date/Time Encounter Type Encounter Description Reason Provider Source Aug 20, 2024 12:38 PM Outpatient Encounter COMMUNITY CARE CONSULT WHITNEY PEREZ Encounter Template Text not used by [place] [...] The data comes from all [place] treatment [facility]. Appointment Date/Time Appointment Type Appointme nt Facility Name Aug 21, 2024 02:00 PM AMBULATORY - SURGERY ASHTYN PÉREZ [facility] Sep 28, 2024 01:30 PM AMBULATORY - MEDICINE [facility] Dec 27, 2024 01:00 PM AMBULATORY - MEDICINE [facility] Active, Pending, and Scheduled Orders This section includes a listing of several types of active, pending, and scheduled orders, including clinic medications orders, diagnostic test orders, procedure orders and consult orders; where the start date of the order is 45 days before the date of the Encounter or 45 days after the date of theEncounter. The data comes from all [facility]. Test Date/Time Test Type Test Details Facility Name Aug 17, 2024 02:06 PM Consult Order COMMUNITY CARE-SURGERY [id number] Cons Advertising Sales Manager's Choice JACK PÉREZ [facility] Social History: Smoking Status (Most current) and [...] 09:34 AM TOBACCO OFFERED PT MEDS (PROVIDER) [facility] Tobacco Use History This section includes a history of the smoking, or tobacco-related health factors, that were collected on or before the date of the Encounter. The data comes from the [place] facility where the Encounter took place. Date/Time Smoking Status/Tobacco Use Comment Miguel hamm Jul 11, 2015 09:34 AM TOBACCO OFFERED PT MEDS (PROVIDER) [facility] Jul 11, 2015 09:[address] [facility]MO[facility] CLINIC [facility] Dec 28, 2010 01:25 PM CURRENT TOBACCO USER [facility] Advance Directives: All historical and current [...] Source Oct 09, 2021 [facility] 2010 ADVANCE DIRECTIVE DISCUSSION MEIR AKHTAR [facility] Encounter Notes: All associated encounter notes This section contains the clinical notes associated to the Encounter. Date/Time Encounter Note(s) Provider Source Aug 20, 2024 12:38 PM NONVA NOTE: LOCAL TITLE: COMMUNITY CARE-CARE COORDINATION PLAN NOTE [id number] STANDARD TITLE: NONVA NOTE DATE OF NOTE: AUG 20, 2024@12:38 ENTRY DATE: AUG 20, 2024@12:38:40 AUTHOR: WHITNEY PEREZ EXP COSIGNER: URGENCY: STATUS: COMPLETED Community Care Consult: SURGERY Consult No: [id number] [facility] Referral #: [id number] Chief Complaint: REFERRAL from Dr. Gino Grossman from [facility] General Surgery for continuation of care of malignant neoplasm of the liver s/o biopsy and chemoembolization of the left hepatic aurgery - appt 08-21-2024 at 1400. DX C22.9 Patient Admitted? No Level of Care Coordination Moderate Care Coordination was determined from: Chart Review Facility Community Care Office Contact Care Coordination Point of Contact: Whitney Perez RN [facility] Assembler Truck Trailer Services: Basic Care Coordination Services Monitoring and coordination of Rehab/PT Services Direct communication to referring provider Care management, if appropriate Plan: Continue with authorization, scheduling, and coordination of care. EXPEDITE Authorization for appt 08-21-2024 at 1400. /ajay/ Whitney Perez RN, MSN [facility] Signed: 08/20/2024 12:41 WHITNEY EPREZAR ELISA [facility]
--- OUTSIDE RECORDS SUMMARY | 2024-08-20 08:12 | XMS_ITS | Encounter Summary ---
Author Name [facility] [place] Organization [facility] [place] Address [address] [place] [address] Care Team Providers Care Automobile Damage Field Appraiser Name Role Phone LUCA MCBRIDE Primary Care [...] Name Patient's Relationship to Policy Esparza HUMANA [facility] (WNR) MEDICARE ADVANTAGE [facility] ([facility]) Feb 07, 2022 [id number] CHARGE AUDITOR,J ERRY PATIENT MEDICAID (WNR) MEDICAID MEDIC AID (WNR) Aug 07, 2012 MEDICAI D [id number] CHARGE AUDITOR,J ERRY PATIENT MEDICARE (WNR) MEDICARE (M) PART A Jul 08, 2012 PART A [id number] CHARGE AUDITOR,J ERRY PATIENT Selected Encounter This section includes the information on record at [place] for the Encounter. Date/Time Encounter Type Encounter Description Reason Pro vider Source Aug 20, 2024 01:12 PM Outpatient Encounter COMMUNITY CARE CONSULT IHE Encounter Template Text not used by [place] Plan of Treatment: Future Appointments (+ 6 months) and Future Tests (+/- 45 days) The Plan of Treatment section includes future care activities for the patient from all [place] treatmentfacilities. This section includes future appointments and future orders which are active, pending or scheduled. Future Appointments This section includes appointments that were scheduled to occur 6 months from the date of the Encounter, up to a maximum of 20 appointments. The data comes from all [place] treatment facilities. Appointment Date/Time Appointment Type Appointme nt Facility Name Aug 21, 2024 02:00 PM AMBULATORY - SURGERY ASHTYN P[facility]REZ [facility] Sep 28, 2024 01:30 PM AMBULATORY - MEDICINE [facility] Dec 27, 2024 01:00 PM AMBUL[facility]ORY - MEDICINE [facility] Active, Pending, and Scheduled Orders This section includes a listing of several types of active, pending, and scheduled orders, including clinic medications orders, diagnostic test orders, procedure orders and consult orders; where the start date of the order is 45 days before the date of the Encounter or 45 days after the date of theEncounter. The data comes from all [facility]. Test Date/Time Test Type Test Details Facility Name Aug 17, 2024 02:06 PM Consult Order COMMUNITY CARE-SURGERY 657A4 Cons Dirt Bike Mechanic's Choice [facility] Social History: Smoking Status (Most current) and Tobacco Use (All prior to encounter date) This section includes the most current, and the historical, smoking and tobacco- related health factors from the [place] facility where the Encounter took place. Current Smoking Status This section includes the most current smoking, or tobacco-related health factor, from the [place] facility where the Encounter took place. Date/Time Current Smoking Status Comment Ailyn contreras Jul 11, 2015 09:34 AM TOBACCO OFFERED PT MEDS (PROVIDER) [facility] Tobacco Use History This section includes a history of the smoking, or tobacco-related health factors, that were collected on or before the date of the Encounter. The data comes from the [place] facility where the Encounter took place. Date/Time Smoking Status/Tobacco Use Comment Miguel hamm Jul 11, 2015 09:34 AM TOBACCO OFFERED PT MEDS (PROVIDER) [facility] Jul 11, 2015 09:[address] [facility]MO[facility]IN[facility] Dec 28, 2010 01:25 PM CURRENT TOBACCO USER [facility] Advance Directives: All historical and current Section Date Range: From patient's date of to the date document was created. This section includes ALL of a patient's completed or amended [place] Advance and Rescinded Directives. The entries below indicate that a directive exists for the patient, but an actual copy is not included with this document. The data comes from all [place] facilities. Date Advance Directives Provider Source Oct 09, 2021 ADVANCE DIRECTIVE BRADY FITZPATRICK [facility] Aug 24, 2010 ADVANCE DIRECTIVE DISCUSSION MEIR AKHTAR [facility] Encounter Notes: All associated encounter notes This section contains the clinical notes associated to the Encounter. Date/Time Encounter Note(s) Provider Source Aug 20, 2024 01:12 PM LETTERS: LOCAL TITLE: COMMUNITY CARE-REFERRAL PB (AUTO-PRINT) STANDARD TITLE: LETTERS DATE OF NOTE: AUG 20, 2024@13:12:39 ENTRY DATE: AUG 20, 2024@13:12:39 AUTHOR: MARTHA BRANDON EXP COSIGNER: URGENCY: STATUS: COMPLETED Satish Fry [address] [place] [address] Dear SATISH FRY, Your [place] provider has referred you to a provider within the community for care. Your medical care for Surgery has been authorized with the Community Care Provider listed below. DO NOT REPORT TO THE [facility] Provider info: An appointment has been scheduled for you on: Aug 21, 2024 02:00 PM Office Name: [facility] Surgery Address: [address] 5th Floor Address: [facility] [address] Auth #: [id number] Referral Issue Date: 08/20/2024 Expiration Date: 02/17/2025 If you are unable to keep this appointment or the appointment is no longer needed, please contact the community provider above for notification/rescheduling and then call the Randy Pillai [place] Community Care Office at [phone] Ext [phone]. If you need additional care/services not mentioned above, please contact your primary care provider for a new referral. Co-Payments: If you are required to pay a VA co-payment, you will be billed by the VA for each authorized visit that you attend. However, you are NOT REQUIRED to make co-payments to a Community Provider. Prescriptions: Your community provider may write a prescription related to the authorized care. If there is an immediate need for your prescriptions from your community care visit, you may be able to get up to a 14-day fill of your prescription at your own expense for the cost of the medication, and may seek reimbursement from the VA. If you require more than a 14-day supply or if the prescribed medication is not immediately needed, your community provider will send a prescription to a VA pharmacy so that the VA can provide you with your routine medication. In-network locations can be found at https://www.va.gov/find-loca tions/ Medical Devices: Your community provider may recommend that medical devices, adapted equipment, or other items be provided for the treatment or rehabilitation of your medical condition. Veterans are generally required to obtain these items through the Prosthetics and Sensory Aids Service (PSAS) in your referring facility. Emergency/Inpatient Services: You, your community provider, or your family must provide notification within 72hr or ER visit and/or admission by [phone]. Thank you for the opportunity to serve you and for your service to our great nation! Martha Pillai [facility] Care in the Community [address] [place] [address] MARTHA BRANDON [facility]
--- OUTSIDE RECORDS SUMMARY | 2024-08-21 04:10 | XMS_ITS | Encounter Summary ---
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 Date/Time Encounter Type Encounter Description Reason Provider Source Aug 21, 2024 09:10 AM Outpatient Encounter ADMIN PAT ACTIVTIES (AARONNONCT) COTYDEBORAH JUAREZ Encounter Template Text not used by [place] Plan of Treatment: Future Appointments (+ 6 months) and Future Tests (+/- 45 days) The Plan of Treatment section includes future care activities for the patient from all [place] treatment[facility]il[facility]. This section includes future appointments and future orders which are active, pending or scheduled. Future Appointments This section includes appointments that were scheduled to occur 6 months from the date of the Encounter, up to a maximum of 20 appointments. The data comes from all [place] treatment facilities. Appointment Date/Time Appointment Type Appointme nt Facility Name Sep 28, 2024 01:30 PM AMBULATORY - MEDICINE [facility] Dec 27, 2024 01:00 PM AMBULATORY - MEDICINE [facility] Active, Pending, and Scheduled Orders This section includes a listing of several types of active, pending, and scheduled orders, including clinic medications orders, diagnostic test orders, procedure orders and consult orders; where the start date of the order is 45 days before the date of the Encounter or 45 days after the date of theEncounter. The data comes from all [place] treatment facilities. Test Date/Time Test Type Test Details Facility Name Aug 17, 2024 02:06 PM Consult Order COMMUNITY CARE-SURGERY 657A4 Cons White Sugar Supervisor's Choice CLAUDIA P[facility]REZ [facility] Social History: Smoking Status (Most current) and Tobacco Use (All prior to encounter date) This section includes the most current, and the historical, smoking and tobacco- related health factors from the [place] facility where the Encounter took place. Current Smoking Status This section includes the most current smoking, or tobacco-related health factor, from the [place] facility where the Encounter took place. Date/Time Current Smoking Status Comment Facil ity Jul 12, 2011 12:54 PM TOBACCO OFFERED PT MEDS (PROVIDE R) CLAUDIA PÉREZ [facility] Tobacco Use History This section includes a history of the smoking, or tobacco-related health factors, that were collected on or before the date of the Encounter. The data comes from the [place] facility where the Encounter took place. Date/Time Smoking Status/Tobacco Use Comment F acility Jul 12, 2011 12:54 PM TOBACCO OFFERED PT MEDS (PROVIDE R) CLUADIA PÉREZ [facility] Jul 12, 2011 12:[address] OP SMOKING CLINIC [facility] Sep 17, 2010 11:28 AM TOBACCO MEDS OFFERED BUT DECLINE D [place] Sep 17, 2010 11:28 AM TOBACCO OFFERED PT MEDS (PROVIDE R) [place] [place] Sep 17, 2010 11:[address] [facility] SMOKING [facility] [place] Sep 01, 2010 09:10 AM TOBACCO MEDS OFFERED BUT DECLINE D [place] Sep 01, 2010 09:10 AM TOBACCO OFFERED PT MEDS (PROVIDE R) [facility] Sep 01, 2010 09:[address] [facility] Advance Directives: All historical and current Section Date Range: From patient's date of to the date document was created. This section includes ALL of a patient's completed or amended [place] Advance and Rescinded Directives. The entries below indicate that a directive exists for the patient, but an actual copy is not included with this document. The data comes from all [place] facilities. Date Advance Directives Provider Source Oct 09, 2021 ADVANCE DIRECTIVE BRADY FITZPATRICKJOSE ANTONIO ZAHIDA FF [facility] Aug 24, 2010 ADVANCE DIRECTIVE DISCUSSION MEIR AKHTAR [facility] Encounter Notes: All associated encounter notes This section contains the clinical notes associated to the Encounter. Date/Time Encounter Note(s) Provider Source Aug 21, 2024 09:11 AM TELEHEALTH NOTE: LOCAL TITLE: TELE EMERGENCY CARE TESTER OPERATOR NOTE STANDARD TITLE: TELEHEALTH NOTE DATE OF NOTE: AUG 21, 2024@09:11 ENTRY DATE: AUG 21, 2024@09:11:05 AUTHOR: DEBORAH FREIRE EXP COSIGNER: URGENCY: STATUS: COMPLETED referred from: Claudia Pérez Wilmot's name, last 4, and were verified. Encounter/Visit Type: Telephone 's Phone Number, Address, Email Address and Contact Information [id number] Patient Address: [address] [place] [address] Patient Email - [email or web address] Contact: CON - Patient Contacts Patient Phone Numbers: Cell: No data available Home: [phone] Work: [phone] Emergency Contact: Name: AUSTIN WILSON Relationship: Secondary Emergency Contact: Name: MORA WILSON Relationship: MOTHER Secondary Next of Kin Contact Name: YARED WILSON Relationship: SON ----- Age: 68 years old Gender: MALE Chief Complaint: intermittent nose bleed [employer]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 Able to speak complete sentences with ease. Skin Assessment: Chief Complaint: Intermittent nose bleed since Tuesday night, he states currently seeping. Lat night it was gushing with large clots. He was seen three weeks ago for same at . On blood thinners Safety Assessment: (Self-Reported) Are you living in a safe environment? Yes Are you carrying any weapons or contraband? No Past Medical History/Active Problems: MARTIN - Active Problems 17 Active Problems PROBLEM LAST MOD PROVIDER Coronary artery disease (SNOMED CT 28517464) 05/28/2015 NADIYA TRAN Chronic obstructive lung disease (SNOMED CT 02/17/2016 NADIYA TRAN [id number]) HLD - Hyperlipidemia (SNOMED CT 26109864) 09/13/2016 NADIYA TRAN Essential hypertension (SNOMED CT 01735748) 05/28/2015 NADIYA TRAN Essential hypertension (SNOMED CT 41894705) 02/17/2016 NADIYA TRAN Knee joint painful on movement 02/09/2023 ALEKSANDER SALGADOAR Low back pain 01/05/2023 ALEKSANDER SALGADOAR Abdominal aortic aneurysm without rupture 09/13/2016 NADIYA TRAN (SNOMED CT 95939261) Chronic obstructive lung disease (SNOMED CT 05/28/2015 NADIYA TRAN 08111530) Generalized Pain 02/17/2016 NADIYA TRAN Polyp of colon, Onset 2014 TIMOTHY SAHHID S Needs repeat colonoscopy in september 2015 Generalized anxiety disorder 11/12/2015 RAJEEV ARCHIBALD Chronic post-traumatic stress disorder following 03/14/2018 RAJEEV ARCHIBALD combat 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 Adenocarcinoma Left upper lobe, 2013, tx. with thoracotomy. Non-small cell Ca 2019. 2. Brain Mets. by CT, 05/2020. 3. Liver mets had been suspected but pt. now says that the liver abnormalities are fibroids. Depression 05/29/2021 VILMA SALGADO Acute pulmonary embolism 01/27/2023 VILMA SALGADO 01/2023. Allergies/Adverse Reactions Current Medications: Active Outpatient Medications (including Supplies): ALBUTEROL 90MCG (CFC-F) 200D ORAL INHL INHALE 1 PUFF BY ACTIVE/PARKED ORAL INHALATION FOUR TIMES A DAY NEEDED SHAKE WELL. RINSE MOUTHPIECE FREQUENTLY TO PREVENT CLOGGING. Indication: FOR COPD ALBUTEROL SO4 0.083% INHL 3ML INHALE 1 VIAL (2.5MG/3ML) BY ACTIVE NEBULIZATION EVERY 6 HOURS DIRECTED Indication: FOR COPD ALCOHOL PREP PAD USE/APPLY PAD TO AFFECTED AREA(S) ONCE A ACTIVE DAY NEEDED Indication: FOR SKIN CLEANSING APIXABAN 5MG TAB TAKE ONE TABLET BY MOUTH TWICE A DAY ACTIVE Indication: FOR ANTICOAGULATION CALCIUM 500MG (CA CARB-1.25GM) TAB TAKE ONE TABLET BY ACTIVE MOUTH TWICE A DAY Indication: FOR CALCIUM SUPPLEMENTATION CETIRIZINE HCL 10MG TAB TAKE ONE TABLET BY MOUTH ONCE A ACTIVE DAY Indication: FOR ALLERGY SYMPTOMS CHOLECALCIF 50MCG (D3-2,000UNIT) TAB TAKE ONE TABLET BY ACTIVE MOUTH ONCE A DAY Indication: FOR VITAMIN D DEFICIENCY CYCLOBENZAPRINE HCL 10MG TAB TAKE ONE TABLET BY MOUTH ONCE ACTIVE A DAY NEEDED MAY CAUSE DROWSINESS. DO NOT DRINK ALCOHOL WHILE TAKING THIS MEDICATION. Indication: FOR MUSCLE SPASM ESCITALOPRAM OXALATE 10MG TAB TAKE ONE-HALF TABLET BY ACTIVE MOUTH EVERY MORNING Indication: FOR ANXIETY EZETIMIBE 10MG TAB TAKE ONE TABLET BY MOUTH ONCE A DAY ACTIVE FLUTICASONE PROP 50MCG 120D NASAL INHL INSTILL 1 SPRAY IN ACTIVE NOSTRIL(S) ONCE A DAY (MUST BE USED DIRECTED FOR MINIMUM OF 21 DAYS TO PROVIDE ADEQUATE BENEFITS) Indication: FOR CHRONIC RHINOSINUSITIS GABAPENTIN 300MG CAP TAKE ONE CAPSULE BY MOUTH THREE TIMES ACTIVE A DAY Indication: FOR NERVE PAIN GUAIFENESIN 400MG TAB TAKE ONE TABLET BY MOUTH EVERY 4 ACTIVE HOURS NEEDED TAKE WITH 8 OUNCE GLASS OF WATER. Indication: FOR MUCUS THINNING HYDROXYZINE HCL 25MG TAB TAKE ONE TABLET BY MOUTH THREE ACTIVE TIMES A DAY NEEDED *MAY CAUSE DROWSINESS* Indication: FOR ANXIETY LANCET,SOFTCLIX USE LANCET FOR BLOOD TEST TWO TIMES PER ACTIVE WEEK USE DIRECTED. Indication: FOR BLOOD SUGAR MONITORING OLODATEROL/TIOTROP 2.5MCG/ACTUAT 60D INH INHALE 2 PUFFS BY ACTIVE MOUTH ONCE A DAY ADMINISTER AT SAME TIME EACH DAY FOR BREATHING OSIMERTINIB 80MG TAB TAKE ONE TABLET BY MOUTH ONCE A DAY ACTIVE (S) TAMSULOSIN HCL 0.4MG CAP TAKE ONE CAPSULE BY MOUTH EVERY ACTIVE EVENING APPROXIMATELY 30 MINUTES AFTER THE SAME MEAL EACH DAY (FOR PROSTATE) Vital Signs (Historical/Last 3): Measurement DT TEMP RESP PULSE BP POx F(C) (L/MIN)(%) 06/28/2024 13:25 98.0(36.7) 18 78 122/64 92 04/12/2024 16:02 97.9(36.6) 84 95/61 92 03/12/2024 15:21 99/60 Measurement DT PAIN WEIGHT HEIGHT LB(KG)[BMI] IN(CM) 06/28/2024 13:25 4 153.8(69.76)[23] 04/12/2024 16:02 03/12/2024 15:21 Emergency Severity Index (ELISSA) level: Level 4 [facility] Spent: Time Spent: Total time spent was 7 minutes on the same calendar day which includes 4 mins. in medical discussion with the patient on the phone. /ajay/ DEBORAH FREIRE RN, BSN Signed: 08/21/2024 09:33 DEBORAH FREIRE [facility]
--- OUTSIDE RECORDS SUMMARY | 2024-08-21 04:14 | XMS_ITS | Encounter Summary ---
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 Date/Time Encounter Type Encounter Description Reason Pro vider Source Aug 21, 2024 09:14 AM Outpatient Encounter TELEPHONE TRIAGE IHE Encounter Template Text not used by [place] Plan of Treatment: Future Appointments (+ 6 months) and Future Tests (+/- 45 days) The Plan of Treatment section includes future care activities for the patient from all [place] [facility]. This section includes future appointments and future orders which are active, pending or scheduled. Future Appointments This section includes appointments that were scheduled to occur 6 months from the date of the Encounter, up to a maximum of 20 appointments. The data comes from all [place] treatment facilities. Appointment Date/Time Appointment Type Appointme nt Facility Name Sep 28, 2024 01:30 PM AMBULATORY - MEDICINE [facility] Dec 27, 2024 01:00 PM AMBULATORY - MEDICINE [facility] Active, Pending, and Scheduled Orders This section includes a listing of several types of active, pending, and scheduled orders, including clinic medications orders, diagnostic test orders, procedure orders and consult orders; where the start date of the order is 45 days before the date of the Encounter or 45 days after the date of theEncounter. The data comes from all [place] treatment [facility]. Test Date/Time Test Type Test Details Facility Name Aug 17, 2024 02:06 PM Consult Order COMMUNITY CARE-SURGERY [id number] Cons Commission Auditor's Choice [facility] Social History: Smoking Status (Most current) and Tobacco Use (All prior to encounter date) This section includes the most current, and the historical, smoking and tobacco- related health factors from the [place] facility where the Encounter took place. Current Smoking Status This section includes the most current smoking, or tobacco-related health factor, from the [place] facility where the Encounter took place. Date/Time Current Smoking Status Comment Facil ity Jul 12, 2011 12:54 PM TOBACCO OFFERED PT MEDS (PROVIDE R) [facility] Tobacco Use History This section includes a history of the smoking, or tobacco-related health factors, that were collected on or before the date of the Encounter. The data comes from the [place] facility where the Encounter took place. Date/Time Smoking Status/Tobacco Use Comment F acbrigido Jul 12, 2011 12:54 PM TOBACCO OFFERED PT MEDS (PROVIDE R) JACK PÉREZ [facility] Jul 12, 2011 12:[address] [facility] Sep 17, 2010 11:28 AM TOBACCO MEDS OFFERED BUT DECLINE D [facility] Sep 17, 2010 11:28 AM TOBACCO OFFERED PT MEDS (PROVIDE R) [facility] Sep 17, 2010 11:[address] [facility] Sep 01, 2010 09:10 AM TOBACCO MEDS OFFERED BUT DECLINE D [facility] Sep 01, 2010 09:10 AM TOBACCO OFFERED PT MEDS (PROVIDE R) [facility] Sep 01, 2010 09:[address] [facility] Advance Directives: All historical and current Section Date Range: From patient's date of to the date document was created. This section includes ALL of a patient's completed or amended [place] Advance and Rescinded Directives. The entries below indicate that a directive exists for the patient, but an actual copy is not included with this document. The data comes from all [place] facilities. Date Advance Directives Provider Source Oct 09, 2021 ADVANCE DIRECTIVE BRADY FITZPATRICKAR ZAHIDA [facility] Aug 24, 2010 ADVANCE DIRECTIVE DISCUSSION MEIR AKHTAR [facility] Encounter Notes: All associated encounter notes This section contains the clinical notes associated to the Encounter. Date/Time Encounter Note(s) Provider Source Aug 21, 2024 09:14 AM RN PROGRESS NOTE: LOCAL TITLE: CCC: CLINICAL TRIAGE STANDARD TITLE: RN PROGRESS NOTE DATE OF NOTE: AUG 21, 2024@09:14:14 ENTRY DATE: AUG 21, 2024@09:14:15 AUTHOR: KENYA CHUN COSIGNER: URGENCY: STATUS: COMPLETED Caller Verification Caller/Recipient Relation to Patient: Self Caller Name: ABDULLAHI WILSON Emergency Contact: AUSTIN WILSON Triage Summary Conducted triage/discussed symptoms Utilized the Triage Tool: Yes Chief Complaint: Nosebleed Nurse's Recommendation / WHEN: Now Nurse's Recommendation / WHERE: Tele-EC Nurse's Other / WHERE: Organizational policy Patient Disposition Patient/Caregiver agrees to plan of care: Yes Patient WHERE: Telephone Visit Patient WHEN: Now Nursing Plan and Disposition Referred patient to higher level of care Transferred to Tele EC Other course(s) of action Generated msg to PACT/Provider Provided guidance for worsening symptoms: *Caller/Patient* advised to call facilities [place] Clinical Contact Center or seek immediate medical attention for new or worsening symptoms Nurse Summary Nurse Summary: Gustavo called with C/O nosebleeds X 12 hours. Subjective: Gustavo was transferred to [facility] nurse via [facility]. stated that his nosebleed started last night and he was able to stop it and then started about 1:00 this morning again. Current condition is stopped. stated he does have lung cancer and on O2. [place] stated he is on blood thinners. stated this is not the first episode of his nosebleeds and he was seen by urgent cares and ERs. Objective: [place] is alert and oriented appears to be in no acute distress. [place] speaking in full sentences without difficulty. Triage recommendations Triage recommendation was ER now this nurse modified to TELE EC per organizational warm handoff given to TELE EC nurse policy. Clinical Contact Center Codes Clinic/Location: V15 PB PHONE [facility] RN Decision Support System Output: Triage Complete Triage Date: 08/21/2024, 09:10 AM Triage Note: Decision Support Tool Used: ClearTriage Protocol Used: Nosebleed Protocol-Based Disposition: Go to ED Now Positive Triage Question: * [1] Bleeding present > 30 minutes AND [2] using correct method of direct pressure Negative Triage Questions: * Fainted or too weak to stand following large blood loss * Sounds like a life-threatening emergency to the triager IMPORTANT: This note was created by [facility] Clinical Contact Center staff. Please do not alert the staff member by adding them as a signer for future communications. Alerts are not monitored by this user. /ajay/ KENYA CHUN RN MSN BSN Signed: 08/21/2024 09:14 Receipt Acknowledged By: * AWAITING SIGNATURE * LUCA MCBRIDE III 08/21/2024 11:54 /ajay/ Alan Longoria [employer] MELVI CARDONA [facility] KENYA CHUN [facility]
--- OUTSIDE RECORDS SUMMARY | 2024-08-21 04:25 | XMS_ITS ---
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 Date/Time Encounter Type Encounter Description Reason Provider Source Aug 21, 2024 09:25 AM BRIEF JAIMIE SHERMAN-BSD SVC TELEPHONE/MEDICIN E ICD-10-CM R04.0 Epistaxis Wolfgang BELLAMY IHWolfgang Encounter Template Text not used by [place] Assessments - Encounter Diagnoses This section includes the primary and secondary diagnoses documented for the Encounter. Date/Time Primary/Secondary Diagnosis Diagnosis Name Provider Source Aug 21, 2024 09:25 AM PRIMARY Epistaxis Wolfgang BELLAMY [facility] Plan of Treatment: Future Appointments (+ 6 months) and Future Tests (+/- 45 days) The Plan of Treatment section includes future care activities for the patient from all [place] [facility]. This section includes future appointments and future orders which are active, pending or scheduled. Future Appointments This section includes appointments that were scheduled to occur 6 months from the date of the Encounter, up to a maximum of 20 appointments. The data comes from all [place] treatment facilities. Appointment Date/Time Appointment Type Appointme nt Facility Name Sep 28, 2024 01:30 PM AMBULATORY - MEDICINE [facility] Dec 27, 2024 01:00 PM AMBULATORY - MEDICINE [facility] Active, Pending, and Scheduled Orders This section includes a listing of several types of active, pending, and scheduled orders, including clinic medications orders, diagnostic test orders, procedure orders and consult orders; where the start date of the order is 45 days before the date of the Encounter or 45 days after the date of theEncounter. The data comes from all [place] treatment facilities. Test Date/Time Test Type Test Details Facility Name Aug 17, 2024 02:06 PM Consult Order COMMUNITY CARE-SURGERY [id number] Cons Rn Neurology's Choice [facility] Social History: Smoking Status (Most current) and Tobacco Use (All prior to encounter date) This section includes the most current, and the historical, smoking and tobacco- related health factors from the [facility] facility where the [facility] took place. Current Smoking Status This section includes the most current smoking, or tobacco-related health factor, from the [facility] facility where the Encounter took place. Date/Time Current Smoking Status Latanya contreras Jul 12, 2011 12:54 PM TOBACCO OFFERED PT MEDS (PROVIDE R) [facility] Tobacco Use History This section includes a history of the smoking, or tobacco-related health factors, that were collected on or before the date of the Encounter. The data comes from the [place] facility where the Encounter took place. Date/Time Smoking Status/Tobacco Use Comment F acility Jul 12, 2011 12:54 PM TOBACCO OFFERED PT MEDS (PROVIDE R) [facility] Jul 12, 2011 12:[address] OP SMOKING CLINIC [facility] Sep 17, 2010 11:28 AM TOBACCO MEDS OFFERED BUT DECLINE D [facility] Sep 17, 2010 11:28 AM TOBACCO OFFERED PT MEDS (PROVIDE R) [facility] Sep 17, 2010 11:[address] [facility]MO[facility] Sep 01, 2010 09:10 AM TOBACCO MEDS OFFERED BUT DECLINE D [facility] Sep 01, 2010 09:10 AM TOBACCO OFFERED PT MEDS (PROVIDE R) [facility] Sep 01, 2010 09:[address] [facility] Advance Directives: All historical and current Section Date Range: From patient's date of to the date document was created. This section includes ALL of a patient's completed or amended [place] Advance and Rescinded Directives. The entries below indicate that a directive exists for the patient, but an actual copy is not included with this document. The data comes from all [place] facilities. Date Advance Directives Provider Source Oct 09, 2021 ADVANCE DIRECTIVE BRADY FITZPATRICK [facility]IDA [facility] Aug 24, 2010 ADVANCE DIRECTIVE DISCUSSION MEIR AKHTAR [facility] Encounter Notes: All associated encounter notes This section contains the clinical notes associated to the Encounter. Date/Time Encounter Note(s) Provider Source Aug 21, 2024 09:25 AM TELEHEALTH NOTE: LOCAL TITLE: TELE EMERGENCY CARE NOTE STANDARD TITLE: TELEHEALTH NOTE DATE OF NOTE: AUG 21, 2024@09:25 ENTRY DATE: AUG 21, 2024@09:25:30 AUTHOR: Wolfgang BELLAMY COSIGNER: URGENCY: STATUS: COMPLETED This is a tele-urgent care visit to address acute/urgent issues. Definitive care on chronic medical issues will be deferred to routine Primary Care appointment/provider. Consult Origin: Referral from the Clinical Contact Center/Call Center Type of Visit: Phone Visit: Visit conducted by telephone. Location/emergency number confirmed. Emergency contact information was obtained as follows: Patient's current address [address] [place] [address] Patient's Phone Number: [phone] CON - Patient Contacts Patient Phone Numbers: Cell: No data available Home: [phone] Work: [phone] Emergency Contact: Name: AUSTIN WILSON Relationship: Secondary Emergency Contact: Name: MORA WILSON Relationship: MOTHER Secondary Next of Kin Contact Name: YARED WILSON Relationship: SON Subjective: Nosebleed. This is a 68-year-old male with history of lung cancer, pulmonary embolus and oxygen dependency, who called today with the above complaint. The patient states that within the last few weeks he gets recurrent episodes of epistaxis. He was last seen at an urgent care clinic on July 28 for the same complaint but at the time that he was evaluated the bleeding had stopped. He states that he was given a nose clamp which he has used intermittently. He calls today because he still has some mild sipping from his nostril. He has not applied the nose clamp to it. He also states that he has used Afrin in the past but he is not wanting to use it too frequently. He also states that he has applied saline nasal spray in his nostrils, every once in a while. The patient is oxygen dependent and he is taking apixaban at this time. He denies dyspnea. He denies trauma to the area. He denies other complaints. ACTIVE PROBLEMS: Code Description I25.10 Coronary artery disease ([facility] [id number]) J44.9 Chronic obstructive lung disease ([facility] [id number]) E78.5 HLD - Hyperlipidemia ([facility] [id number]) I10. Essential hypertension ([facility] [id number]) I10. 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 Congenital cavus foot ([facility] [id number]) C34.90 Lung cancer ([facility] [id number]) F32.A Depression ([facility] [id number]) I26.99 Acute pulmonary embolism ([facility] [id number]) ALLERGIES/ADR: PENICILLIN, SIMVASTATIN, ROSUVASTATIN Active Outpatient Medications (including Supplies): ALBUTEROL 90MCG [...] THE SAME MEAL EACH DAY (FOR PROSTATE) Objective: This is a phone encounter, no physical exam was performed. The patient is alert and oriented x 3 and appears in no acute distress. The patient is interacting well. Reason for Referral: Ear/Nose/Throat/Respiratory Assessment/Impression: Recurrent epistaxis. Plan: I instructed the patient to apply the nasal clamp and keep it on for at least 15 minutes. If hemostasis was obtained I then instructed him to apply saline nasal spray and to apply Vaseline to the inside of his nose. He was also instructed that if the bleeding continued despite the above recommendations, that he should present himself to the emergency department for evaluation and definitive treatment. The patient understands and agrees with the plan. Issue resolved with Tele Emergency Care appointment Discharge instructions were reviewed Patient verbalizes understanding of the care plan Time spent in telephone/video visit: Minutes: 8 /es/ E. Jose Luis Bellamy Emergency Physician Signed: 08/21/2024 09:35 Wolfgang BELLAMY [facility]
--- OUTSIDE RECORDS SUMMARY | 2024-08-23 07:01 | XMS_ITS | Encounter Summary ---
Author Name [facility] [place] [facility] [place] [facility] [place] Address [address] [place] [id number] Care Team Providers Care Overlock Operator Name Role Phone LUCA MCBRIDE Primary [...] Name Patient's Relationship to Policy Esparza [employer] [facility] (WNR) MEDICARE ADVANTAGE [facility] ([facility] Feb 07, 2022 [id number] [employer]KER,J ERRY PATIENT MEDICAID (WNR) MEDICAID MEDIC AID (WNR) Aug 07, 2012 MEDICAI D [id number] [phone] [employer]KER,J ERRY PATIENT MEDICARE (WNR) MEDICARE (M) PART A Jul 08, 2012 PART A [id number] OR[employer]OP[employer] 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 Date/Time Encounter Type Encounter Description Reason Pro vider Source Aug 23, 2024 12:01 PM Outpatient Encounter TELEPHONE TRIAGE IHE Encounter Template Text not used by CT Plan of Treatment: Future Appointments (+ 6 months) and Future Tests (+/- 45 days) The Plan of Treatment section includes future care activities for the [facility] This section includes future appointments and future orders which are active, pending or scheduled. Future Appointments This section includes appointments that were scheduled to occur 6 months from the date of the Encounter, up to a maximum of 20 appointments. The data comes from all CT treatment facilities. Appointment Date/Time Appointment Type Appointme nt Facility Name Sep 28, 2024 01:30 PM AMBULATORY - MEDICINE [facility] Dec 27, 2024 01:00 PM AMBULATORY - MEDICINE [facility] Active, Pending, and Scheduled Orders This section includes a listing of several types of active, pending, and scheduled orders, including clinic medications orders, diagnostic test orders, procedure orders and consult orders; where the start date of the order is 45 days before the date of the Encounter or 45 days after the date of theEncounter. The data comes from all CT treatment facilities. Test Date/Time Test Type Test Details Facility Name Aug 17, 2024 02:06 PM Consult Order COMMUNITY CARE-SURGERY [id number] Cons Drawbridge Operator's Choice [facility] Social History: Smoking Status (Most current) and Tobacco Use (All prior to encounter date) This section includes the most current, and the historical, smoking and tobacco- related health factors from the CT facility where the Encounter took place. Current Smoking Status This section includes the most current smoking, or tobacco-related health factor, from the CT facility where the Encounter took place. Date/Time Current Smoking Status Comment Facil ity Jul 12, 2011 12:54 PM TOBACCO OFFERED PT MEDS (PROVIDE R) [facility] Tobacco Use History This section includes a history of the smoking, or tobacco-related health factors, that were collected on or before the date of the Encounter. The data comes from the CT facility where the Encounter took place. Date/Time Smoking Status/Tobacco Use Comment F acbrigido Jul 12, 2011 12:54 PM TOBACCO OFFERED PT MEDS (PROVIDE R) [facility] Jul 12, 2011 12:[address] [facility] Sep 17, 2010 11:28 AM TOBACCO MEDS OFFERED BUT DECLINE D [facility] Sep 17, 2010 11:28 AM TOBACCO OFFERED PT MEDS (PROVIDE R) [facility] Sep 17, 2010 11:[address] OP SMOKING CLINIC [facility] Sep 01, 2010 09:10 AM TOBACCO MEDS OFFERED BUT DECLINE D [facility] Sep 01, 2010 09:10 AM TOBACCO OFFERED PT MEDS (PROVIDE R) [facility] Sep 01, 2010 09:[address] [facility] Directives: All historical and current Section Date Range: From patient's date of to the date document was created. This section includes ALL of a patient's completed or amended CT Advance and Rescinded Directives. The entries below indicate that a directive exists for the patient, but an actual copy is not included with this document. The data comes from all CT facilities. Date Advance Directives Provider Source Oct 09, 2021 ADVANCE DIRECTIVE BRADY FITZPATRICK [facility] Aug 24, 2010 ADVANCE DIRECTIVE DISCUSSION MEIR [facility] Encounter Notes: All associated encounter notes This section contains the clinical notes associated to the Encounter. Date/Time Encounter Note(s) Provider Source Aug 23, 2024 12:02 PM RN PROGRESS NOTE: LOCAL TITLE: CCC: CLINICAL TRIAGE STANDARD TITLE: RN PROGRESS NOTE DATE OF NOTE: AUG 23, 2024@12:02:01 ENTRY DATE: AUG 23, 2024@12:02:01 AUTHOR: JEFF CLARK COSIGNER: URGENCY: STATUS: COMPLETED Caller Verification Caller/Recipient Relation to Patient: Self Caller Name: ABDULLAHI WILSON Emergency Contact: AUSTIN WILSON Triage Summary Conducted triage/discussed symptoms Utilized the Triage Tool: Yes Chief Complaint: Nosebleed Nurse's Recommendation / WHEN: Now Nurse's Recommendation / WHERE: ED Other Patient Disposition Patient/Caregiver agrees to plan of care: Yes Patient WHERE: ED Other Patient WHEN: Now Nursing Plan and Disposition Referred patient to higher level of care Instructed to go to Emergency Room (ER) Other course(s) of action Generated msg to PACT/Provider Provided guidance for worsening symptoms: *Caller/Patient* advised to call facilities CT Clinical Contact Center or seek immediate medical attention for new or worsening symptoms Nurse Summary Nurse Summary: Dousman calls with a nosebleed that it has been intermittent for 2 weeks and he has been seen and given a nose clamp that he uses at least once a day for 15 minutes and then the nosebleeding will finally slow and stop but then it starts up again he said he had a bloody trial from the bathroom to the kitchen and all over his close. He does still does take apixaban. He does wear oxygen and use his fluticasone nasal inhaler. He is agreeable to go to an emergency room to be evaluated. He will have his drive him. He said he already is familiar with the 72-hour number to call for payment review. He did say he wanted to take a shower and get the blood cleaned off of him first. He would like a call back from his primary care team for follow-up for these nosebleeds. Clinical Contact Center Codes Clinic/Location: [facility] PHONE CCC RN Decision Support System Output: Triage Complete Triage Date: 08/23/2024, 11:59 AM Triage Note: Decision Support Tool Used: ClearTriage Protocol Used: Nosebleed Protocol-Based Disposition: Go to ED Now Positive Triage Question: * [1] Bleeding present > 30 minutes AND [2] using correct method of direct pressure Care Advice Discussed: * Continue Pinching the Nostrils to Stop the Nosebleed * Another Adult Should Drive * Bring Medicines Negative Triage Questions: * Fainted or too weak to stand following large blood loss * Sounds like a life-threatening emergency to the triager IMPORTANT: This note was created by [facility] Clinical Contact Center staff. Please do not alert the staff member by adding them as a signer for future communications. Alerts are not monitored by this user. /ajay/ MARIE Bearden, COLLEGE ADMINISTRATOR NURSE Signed: 08/23/2024 12:02 Receipt Acknowledged By: * AWAITING SIGNATURE * LUCA MCBRIDE III * AWAITING SIGNATURE * KORI WHITNEY RHONDA B [facility]
--- OUTSIDE RECORDS SUMMARY | 2024-08-23 10:49 | XMS_ITS | Continuity of Care Document ---
Author Name [facility] Organization [facility] Care Team Providers Care Medical Orderly Name Role Phone [facility] Unavailable Unavailable Problems Combined list of problems from Department of Defense and Veterans Affairs facilities. It does not include entries that were removed or entered in error. Problem Status Onset Date Problem Type Date of Resolution Comments Source Polyp of colon Active 02/07/19 14 Condition 2014 Entered By: TIMOTHY SHAHID Comment: needs repeat colonoscopy in september 2015 [facility] Abdominal aortic aneurysm without rupture (SNOMED CT 77728700) Active Condition [place] [facility] Acute pulmonary embolism Active Condition Jan 27, 2023 Entered By: KENYA SALGADO Comment: 01/2023. [place] [facility] Chronic obstructive lung disease (SNOMED CT 00720646) Active Condition [place] [facility] Chronic pain (SNOMED CT 59980276) Active Condition [place] [facility] Chronic post-traumatic stress disorder following combat Active Condition [place] [facility] Congenital cavus foot Active Condition [place] [facility] Coronary artery disease (SNOMED CT 33442283) Active Condition [place] [facility] Depression (SCT 43411394) Active Condition [place] [facility] Essential hypertension (SNOMED CT 04746512) Active Condition [place] [facility] Generalized anxiety disorder Active Condition [place] [facility] Hernia, Umbilical Active Condition [place] [facility] HLD - Hyperlipidemia (SNOMED CT 42146638) Active Condition [place] [facility] Knee joint painful on movement Active Condition [place] [facility] Low back pain Active Condition [place] [facility] Lung cancer Active Condition Sep 11, 2019 Entered By: KENYA SALGADO Comment: Adenocarcinoma Left upper lobe, 2013, tx. with thoracotomy. Non-small cell Ca 2019.May 16, 2020 Entered By: KENYA SALGADO Comment: Brain Mets. by CT, 05/2020.Apr 07, 2023 Entered By: KENYA SALGADO Comment: Liver mets had been suspected but pt. now says that the liver abnormalities are fibroids. [place] [facility] Abscess of thigh (SNOMED CT 7089790) Inactive Condition 01/05/2023 [place] [facility] Ankle Arthritis Inactive Condition 01/05/2023 [place] [facility] Ankle Pain Inactive Condition 01/05/2023 [place] [facility] Bereavement (SNOMED CT 36766384) Inactive Condition 01/05/2023 [place] [facility] Burn of forearm (SNOMED CT 96907646) Inactive Condition 01/05/2023 [place] [facility] Cartoid Occ/Stenosis Inactive Condition 01/05/2023 [place] [facility] Chronic hepatitis C without mention of hepatic coma (ICD-9-CM 070.54) Inactive Condition 01/05/2023 [place] [facility] Diabetes Mellitus Type 2 (SCT 46277947) Inactive Condition 01/05/2023 [place] [facility] Elevated Liver Function Tests (ICD-9-CM 794.8) Inactive Condition 01/05/2023 [place] [facility] Hip Pain Inactive Condition 01/05/2023 [place] [facility] Hyperglycaemia Inactive Condition 06/20/2020 [place] [facility] Hypertension Inactive Condition 01/05/2023 [place] [facility] Personal History of Tobacco Use Inactive Condition 01/05/2023 [place] [facility] Sciatica Inactive Condition 01/05/2023 [place] [facility] Unresolved Inactive Condition 05/29/2021 [place] [facility] Unresolved Inactive Condition 05/29/2021 [place] [facility] Unresolved Inactive Condition 05/29/2021 [place] [facility] Upper abdominal pain Inactive Condition 01/05/2023 [place] [facility] Diagnosis: ICD-10-CM R04.0 Epistaxis Active Diagnosis [place] [facility] Diagnosis: ICD-10-CM J44.9 Chronic obstructive pulmonary disease, unspecified Active Diagnosis [place] [facility] Diagnosis: ICD-10-CM Z74.1 Need for assistance with personal care Active Diagnosis [place] [facility] Diagnosis: ICD-10-CM J20.9 Acute bronchitis, unspecified Active Diagnosis [place] [facility] Diagnosis: ICD-10-CM R06.02 Shortness of breath Active Diagnosis [facility] Diagnosis: ICD-10-CM R06.00 Dyspnea, unspecified Active Diagnosis [facility] Diagnosis: ICD-10-CM Z09 Encntr for f/u exam aft trtmt for cond oth than malig neoplm Active Diagnosis [facility] Diagnosis: ICD-10-CM J44.89 Other specified chronic obstructive pulmonary disease Active Diagnosis [facility] Diagnosis: ICD-10-CM Z23 Encounter for immunization Active Diagnosis [facility] Diagnosis: ICD-10-CM Z71.89 Other specified counseling Active Diagnosis [facility] Diagnosis: ICD-10-CM J18.8 Other pneumonia, unspecified organism Active Diagnosis [facility] Diagnosis: ICD-10-CM Z51.81 Encounter for therapeutic drug level monitoring Active Diagnosis [facility] Diagnosis: ICD-10-CM E78.5 Hyperlipidemia, unspecified Active Diagnosis [facility] Diagnosis: ICD-10-CM Z00.00 Encntr for general adult medical exam w/o abnormal findings Active Diagnosis [facility] Diagnosis: ICD-10-CM C34.90 Malignant neoplasm of unsp part of unsp bronchus or lung Active Diagnosis [facility] Medications Combined list of outpatient medications from Department of Defense and Veterans Affairs facilities.Medications provided include 1) outpatient medications from the last 15 months, and 2) patient-reported medications. Medication Details Route Status Patient Instructions Prescription Expires Prescription Number Last Dispense Date Ordering Provider Order Date Order Qty Source ALBUTEROL SO4 0.083% INHL,3ML INHALE 1 VIAL (2.5MG/3 ML) BY NEBULIZA TION EVERY 6 HOURS DIRECTED FOR COPD NEBULI ZATION ACTIVE 09/04/2024 [id number] 4 SHERRY STEWARD G 2023 360 [facility] ALBUTEROL SO4 90MCG/ACTUA T (CFC-F) INHL,ORAL,8 .5GM INHALE 1 PUFF BY ORAL INHALATI ON FOUR TIMES A DAY NEEDED FOR COPD SHAKE WELL. RINSE MOUTHPIE CE FREQUENT LY TO PREVENT CLOGGING . RESPIR ATORY (INHAL ATION) ACTIVE 07/21/2025 [id number] SHEILA ABREU 2024 3 [facility] ALBUTEROL SO4 90MCG/ACTUA T (CFC-F) INHL,ORAL,8 .5GM INHALE 2 PUFFS BY ORAL INHALATI ON FOUR TIMES A DAY NEEDED FOR BREATHIN G. SHAKE WELL. RINSE MOUTHPIE CE FREQUENT LY TO PREVENT CLOGGING . RESPIR ATORY (INHAL ATION) 03/31/2024 [id number] 4 KENYA SALGADO 2023 3 [facility] APIXABAN 5MG TAB TAKE ONE TABLET BY MOUTH TWICE A DAY FOR ANTICOAG ULATION ORAL ACTIVE 09/20/2024 [id number] 5 TINY ARSHAD 2023 180 [place] [facility] APIXABAN 5MG TAB TAKE ONE TABLET BY MOUTH TWICE A DAY FOR ANTICOAG ULATION ORAL DISCONT INUED (EDIT) 01/28/2024 [id number] 4 TINY ARSHAD 2023 120 [place] [facility] CALCIUM 500MG (CA CARBONATE-1 .25GM) TAB TAKE ONE TABLET BY MOUTH TWICE A DAY FOR CALCIUM SUPPLEME NTATION ORAL ACTIVE 06/29/2025 [id number] 5 SHERRY STEWARD ISTEL G 2024 180 [facility] CALCIUM 500MG (CA CARBONATE-1 .25GM) TAB TAKE ONE TABLET BY MOUTH TWICE A DAY FOR DIET SUPPLEME NTATION. ORAL 03/31/2024 [id number] 4 KENYA SALGADO 2023 180 [facility] CETIRIZINE HCL 10MG TAB TAKE ONE TABLET BY MOUTH ONCE A DAY FOR ALLERGY SYMPTOMS ORAL ACTIVE 06/29/2025 [id number] 5 SHERRY STEWARD ISTEL G 2024 90 [facility] CETIRIZINE HCL 10MG TAB TAKE ONE TABLET BY MOUTH ONCE A DAY NEEDED FOR ALLERGY SYMPTOMS . ORAL 03/31/2024 [id number] 4 KENYA SALGADO 2023 90 [place] [facility] CHOLECALCIF FOZIA 50MCG (2,000UNIT) TAB TAKE ONE TABLET BY MOUTH ONCE A DAY FOR VITAMIN D DEFICIEN CY ORAL ACTIVE 06/29/2025 [id number] 5 SHERRY STEWARD G 2024 100 [place] [facility] CHOLECALCIF FOZIA 50MCG (2,000UNIT) TAB TAKE TWO TABLETS BY MOUTH ONCE A DAY FOR VITAMIN D DEFICIEN CY. ORAL 03/31/2024 [id number] 4 KENYA SALGADO Rashida 2023 200 [facility] CYCLOBENZAP RINE HCL 10MG TAB TAKE ONE TABLET BY MOUTH ONCE A DAY NEEDED FOR MUSCLE SPASM MAY CAUSE DROWSINE SS. DO NOT DRINK ALCOHOL WHILE TAKING THIS MEDICATI ON. ORAL ACTIVE 03/22/2025 [id number] 5 MASHA NUNEZ 2024 30 [facility] CYCLOBENZAP RINE HCL 10MG TAB TAKE ONE TABLET BY MOUTH THREE TIMES A DAY FOR MUSCLE SPASM MAY CAUSE DROWSINE SS. DO NOT DRINK ALCOHOL WHILE TAKING THIS MEDICATI ON. ORAL DISCONT INUED (EDIT) 12/15/2024 [id number] 4 SHERRY STEWARDAngie Barreto 2023 270 [facility] ESCITALOPRA M OXALATE 10MG TAB TAKE ONE-HALF TABLET BY MOUTH EVERY MORNING FOR ANXIETY ORAL ACTIVE 08/18/2025 [id number] 5 SHEILA ABREU 2024 45 [place] [facility] EZETIMIBE 10MG TAB TAKE ONE TABLET BY MOUTH ONCE A DAY ORAL ACTIVE 02/20/2025 [id number] 5 MASHA NUNEZ 2024 90 [place] [facility] EZETIMIBE 10MG TAB TAKE ONE TABLET BY MOUTH ONCE A DAY ORAL DISCONT INUED 01/02/2024 [id number] 4 ANA LYONS 2023 60 [place] [facility] EZETIMIBE 10MG TAB TAKE ONE TABLET BY MOUTH ONCE A DAY FOR HIGH CHOLESTE ROL ORAL DISCONT INUED 09/20/2024 [id number] 4 MASHA NUNEZ 2023 90 [facility] FLUTICASONE 250MCG/SALM ETEROL 50MCG INHL,ORAL,D ISKUS,60 INHALE 1 INHALATI ON BY ORAL INHALATI ON TWICE A DAY FOR COPD (OPEN DISKUS; CLICK ONLY ONCE; MAY INHALE TWICE TO COMPLETE DOSE; CLOSE WHEN FINISHED ) RINSE MOUTH AND SPIT AFTER EACH USE. RESPIR ATORY (INHAL ATION) DISCONT INUED BY PROVIDE R 06/29/2025 [id number] 5 SHERRY STEWARD ISTEL G 2024 3 [facility] FLUTICASONE PROPIONATE 50MCG/SPRAY SOLN,NASAL, 16GM INSTILL 1 SPRAY IN NOSTRIL( S) ONCE A DAY FOR CHRONIC RHINOSIN USITIS (MUST BE USED DIRECTED FOR MINIMUM OF 21 DAYS TO PROVIDE ADEQUATE BENEFITS ) NASAL ACTIVE 06/29/2025 [id number] 5 SHERRY STEWARD ISTEL G 2024 2 [facility] FLUTICASONE PROPIONATE 50MCG/SPRAY SOLN,NASAL, 16GM INSTILL 1 SPRAY IN NOSTRIL( S) TWICE A DAY FOR ALLERGIE S (MUST BE USED DIRECTED FOR MINIMUM OF 21 DAYS TO PROVIDE ADEQUATE BENEFITS ) NASAL 03/31/2024 [id number] 4 KENYA SALGADO 2023 3 [facility] GABAPENTIN 300MG CAP TAKE ONE CAPSULE BY MOUTH THREE TIMES A DAY FOR NERVE PAIN ORAL ACTIVE 06/29/2025 [id number] 5 SHERRY STEWARD ISTEL G 2024 270 [facility] GABAPENTIN 300MG CAP TAKE ONE CAPSULE BY MOUTH THREE TIMES A DAY FOR PAIN ORAL 03/31/2024 [id number] 4 KENYA SALGADO 2023 270 [facility] GUAIFENESIN 400MG TAB TAKE ONE TABLET BY MOUTH EVERY 4 HOURS NEEDED FOR MUCUS THINNING TAKE WITH 8 OUNCE GLASS OF WATER. ORAL ACTIVE 06/29/2025 [id number] 5 SHERRY STEWARD ISTEL G 2024 720 [facility] GUAIFENESIN 400MG TAB TAKE ONE TABLET BY MOUTH EVERY 4 HOURS NEEDED TO THIN MUCUS. TAKE WITH 8 OUNCE GLASS OF WATER. ORAL 03/31/2024 [id number] 4 KENYA SALGADO 2023 300 [facility] HYDROXYZINE HCL 25MG TAB TAKE ONE TABLET BY MOUTH THREE TIMES A DAY NEEDED FOR ANXIETY *MAY CAUSE DROWSINE SS* ORAL ACTIVE 06/09/2025 [id number] 5 SHERRY STEWARD ISTEL G 2024 270 [facility] HYDROXYZINE HCL 25MG TAB TAKE ONE TABLET BY MOUTH THREE TIMES A DAY NEEDED FOR ANXIETY *MAY CAUSE DROWSINE SS* ORAL DISCONT INUED 12/15/2024 [id number] 4 SHERRY STEWARD ISTEL G 2023 270 [facility] MOMETASONE FUROATE 110MCG/INHL INHL,ORAL,3 0 INHALE 2 PUFFS BY MOUTH ONCE A DAY FOR BREATHIN G. RINSE MOUTH OUT WITH WATER AND SPIT AFTER EACH DOSE. STORE INHALER IN DIGITAL A[employer]LYTICS MANAGER AT ROOM TEMPERAT URE UNTIL READY TO OPEN. DISCARD 45 DAYS AFTER OPENING. ORAL DISCONT INUED BY MELIZA R 03/22/2025 [id number] 5 SHERRY STEWARD ISTEL G 2024 3 [facility] MOMETASONE FUROATE 110MCG/INHL INHL,ORAL,3 0 INHALE 2 PUFFS BY MOUTH ONCE A DAY FOR BREATHIN G. RINSE MOUTH OUT WITH WATER AND SPIT AFTER EACH DOSE. STORE INHALER IN DIGITAL ANALYTICS MANAGER AT ROOM TEMPERAT URE UNTIL READY TO OPEN. DISCARD 45 DAYS AFTER OPENING. ORAL DISCONT INUED 03/31/2024 [id number] 5 KENYA SALGADO 2023 3 [facility] OLODATEROL 2.5MCG/TIOT ROPIUM 2.5MCG/ACTU AT INHL,ORAL,6 0D,4GM INHALE 2 PUFFS BY MOUTH ONCE A DAY ADMINIST ER AT SAME TIME EACH DAY FOR BREATHIN G ORAL ACTIVE 04/07/2025 [id number] 5 MASHA NUNEZ 2024 3 [facility] OLODATEROL 2.5MCG/TIOT ROPIUM 2.5MCG/ACTU AT INHL,ORAL,6 0D,4GM INHALE 2 PUFFS BY MOUTH ONCE A DAY ADMINIST ER AT SAME TIME EACH DAY FOR BREATHIN G ORAL DISCONT INUED 03/31/2024 [id number] 5 KENYA SALGADO 2023 3 [facility] OSIMERTINIB 80MG TAB TAKE ONE TABLET BY MOUTH ONCE A DAY ORAL SUSPEND ED 09/16/2024 [id number] 5 OSCAR WALKER SA 2024 30 [place] [facility] OSIMERTINIB 80MG TAB TAKE ONE TABLET BY MOUTH ONCE A DAY ORAL DISCONT INUED 05/30/2025 [id number] 5 DENNIS VERA HYANT 2024 30 [place] [facility] OSIMERTINIB 80MG TAB TAKE ONE TABLET BY MOUTH ONCE A DAY ORAL DISCONT INUED 02/22/2025 [id number] 5 JODYDUS HYANT 2024 30 [place] [facility] OSIMERTINIB 80MG TAB TAKE ONE TABLET BY MOUTH ONCE A DAY ORAL DISCONT INUED 11/11/2024 [id number] 4 Mignon MONTELONGO 2023 30 [place] [facility] OSIMERTINIB 80MG TAB TAKE ONE TABLET BY MOUTH ONCE A DAY ORAL DISCONT INUED 08/15/2024 [id number] 4 ANA LYONS 2023 30 [place] [facility] OSIMERTINIB 80MG TAB TAKE ONE TABLET BY MOUTH ONCE A DAY ORAL DISCONT INUED 05/16/2024 [id number] 4 ANA LYONS 2023 30 [place] [facility] OSIMERTINIB 80MG TAB TAKE ONE TABLET BY MOUTH ONCE A DAY ORAL 08/12/2024 [id number] 5 OSCAR WALKER SA 2024 30 [place] [facility] TAMSULOSIN HCL 0.4MG CAP TAKE ONE CAPSULE BY MOUTH EVERY EVENING APPROXIM ATELY 30 MINUTES AFTER THE SAME MEAL EACH DAY (FOR PROSTATE ) ORAL ACTIVE 04/07/2025 [id number] 5 MASHA NUNEZ [address] [place] [address] [facility] TAMSULOSIN HCL 0.4MG CAP TAKE ONE CAPSULE BY MOUTH EVERY EVENING APPROXIM ATELY 30 MINUTES AFTER THE SAME MEAL EACH DAY (FOR PROSTATE ) ORAL DISCONT INUED 03/31/2024 [id number] 5 DAMIAN KENYA Rashida [address] [place] [address] [facility] Allergies, Adverse Reactions, Alerts Combined list of allergies from Department of Defense and Veterans Affairs facilities. It does not include entries that were removed or entered in error. Substance Category Reaction Severity Reaction type Status Date Reported Comments Source PENICILLIN Propensity to adverse reactions to drug (finding) Swelling active 7 [facility] PENICILLIN Propensity to adverse reactions to drug (finding) Swelling, Eruption active 0 [facility] 15 ROSUVASTATIN Propensity to adverse reactions to drug (finding) active 8 [facility] SIMVASTATIN Propensity to adverse reactions to drug (finding) Liver enzymes abnormal MODERATE active 1 [facility] Immunizations Combined list of available immunizations from the Department of [facility] and Veterans Affairs facilities. Immunization Series Date Given Administered By Site Reaction Lot Number CVX Code Drug Jowl Trimmer Status Comments Source INFLUENZA, HIGH-DOSE, TRIVALENT, PF 2023 GLENNA RAM LEFT DELTO ID [id number] A 135 complet ed [facility] ZOSTER RECOMBINANT 1 2023 RUBY ROCA RIGHT DELTO ID [id number] 187 complet ed [facility] INFLUENZA, INJECTABLE, QUADRIVALENT, PRESERVATIVE FREE 2023 RUBY ROCA RIGHT DELTO ID [id number] A 150 complet ed [facility] AT [facility] PNEUMOCOCCAL CONJUGATE PCV20, POLYSACCHARID E [id number] CONJUGATE, ADJUVANT, PF 2023 RUBY ROCA R LEFT DELTO ID [id number] 216 complet ed [facility] INFLUENZA, INJECTABLE, QUADRIVALENT, PRESERVATIVE FREE 2021 150 complet ed [facility] COVID-19 (MODERNA), MRNA, LNP-S, PF, 100 MCG/0.5ML DOSE OR 50 MCG/0.25ML DOSE 3 2021 207 complet ed HISTORICA L INFORMATI ON - FROM OTHER REGISTRY, [facility] COVID-19 (JOHNNY), VECTOR-NR, [id number], PF, 0.5 ML 2 2020 212 complet ed JSN; [id number]; 2 [facility] INFLUENZA, INJECTABLE, QUADRIVALENT, PRESERVATIVE FREE 2020 150 complet ed [facility] COVID-19 (JOHNNY), VECTOR-NR, [id number], PF, 0.5 ML 1 2020 212 complet ed HISTORICA L INFORMATI ON - FROM OTHER REGISTRY, [facility] INFLUENZA, INJECTABLE, QUADRIVALENT, PRESERVATIVE FREE 2019 150 complet ed [facility] INFLUENZA, INJECTABLE, QUADRIVALENT, PRESERVATIVE FREE 2018 150 complet ed [facility] INFLUENZA, INJECTABLE, QUADRIVALENT, PRESERVATIVE FREE 2017 150 complet ed [facility] INFLUENZA, SEASONAL, INJECTABLE, PRESERVATIVE FREE 2016 140 complet ed Left Deltoid [facility] TDAP 2016 115 complet ed [facility] INFLUENZA, SEASONAL, INJECTABLE, PRESERVATIVE FREE 2015 140 complet ed [facility] INFLUENZA, SEASONAL, INJECTABLE, PRESERVATIVE FREE 2014 140 complet ed [place] [facility] ZOSTER LIVE 1 2014 121 complet ed HISTORICA L INFORMATI ON - FROM OTHER REGISTRY, [facility] INFLUENZA, SEASONAL, INJECTABLE, PRESERVATIVE FREE 2013 140 complet ed [place] [facility] INFLUENZA, SEASONAL, INJECTABLE, PRESERVATIVE FREE 2013 140 complet ed [facility] INFLUENZA, UNSPECIFIED FORMULATION 2012 88 complet ed [place] [facility] HEP A-HEP B 2012 [place] [facility] 104 comple t ed [place] [facility] INFLUENZA, UNSPECIFIED FORMULATION 2011 88 complet ed [place] [facility] HEP A-HEP B 2011 BRIGETTE BRYANT 104 complet ed [facility] INFLUENZA, UNSPECIFIED FORMULATION 2010 88 complet ed [facility] PNEUMOCOCCAL, UNSPECIFIED FORMULATION 2010 109 complet ed [facility] INFLUENZA (HISTORICAL) 2009 88 complet ed [facility] Results Combined list of recent chemistry, hematology and other laboratory results from Department of Defense and Veterans Affairs, ranging from 15 months to all on record, depending upon the facility. Order Name Results Value Reference Range Date Interpretation Specimen Comments Source VITAMIN D, 25-HYDROXY 25-HYDROXYVIT KELLY D3 [MASS/VOLUME] IN SERUM OR PLASMA 32.0 ng/mL 30 - 96 04/02 Specimen Type: SERUM No comment entered. Ordering Provider: MASHA NUNEZ Report Released Date/Time : Nov 18, 2023 06:38 AM Reporting Lab: [place] [facility] [address] [place] [address] Performin g Lab: [place] [facility] [address] [place] [address] [facility] DIRECT LDL (MA-PB) CHOLESTEROL IN LDL [MASS/VOLUME] IN SERUM OR PLASMA BY DIRECT ASSAY 127.6 mg/dL 0 - 99.9 04/02 H Specimen Type: PLASMA No comment entered. Ordering Provider: MASHA NUNEZ Report Released Date/Time : Nov 18, 2023 06:38 AM Reporting Lab: [place] [facility] [address] [place] [address] Performin g Lab: [place] [facility] [address] [place] [address] [facility] CHOLESTEROL PANEL (PB) CHOLESTEROL [MASS/VOLUME] IN SERUM OR PLASMA 175 mg/dL 0 - 200 04/02 Specimen Type: PLASMA No comment entered. Ordering Provider: MASHA NUNEZ Report Released Date/Time : Nov 18, 2023 06:38 AM Reporting Lab: [place] [facility] [address] [place] [address] Performin g Lab: [place] [facility] [address] [place] [address] [facility] CHOLESTEROL PANEL (PB) TRIGLYCERIDE [MASS/VOLUME] IN SERUM OR PLASMA 93 mg/dL 0 - 150 04/02 Specimen Type: PLASMA No comment entered. Ordering Provider: MASHA NUNEZ Report Released Date/Time : Nov 18, 2023 06:38 AM Reporting Lab: [place] [facility] [address] [place] [address] Performin g Lab: [place] [facility] [address] [place] [address] [facility] CHOLESTEROL PANEL (PB) CHOLESTEROL IN LDL [MASS/VOLUME] IN SERUM OR PLASMA BY CALCULATION 115.4 mg/dL 04/02 Specimen Type: PLASMA No comment entered. Ordering Provider: MASHA NUNEZ Report Released Date/Time : Nov 18, 2023 06:38 AM Reporting Lab: [place] [facility] [address] [place] [address] Performin g Lab: [place] [facility] [address] [place] [address] [facility] CHOLESTEROL PANEL (PB) CHOLESTEROL IN HDL [MASS/VOLUME] IN SERUM OR PLASMA 41.0 mg/dL 40 04/02 H Specimen Type: PLASMA No comment entered. Ordering Provider: MASHA NUNEZ Report Released Date/Time : Nov 18, 2023 06:38 AM Reporting Lab: [place] [facility] [address] [place] [address] Performin g Lab: [place] [facility] [address] [place] [address] [facility] CHOLESTEROL PANEL (PB) CHOLESTEROL IN HDL/CHOLESTER OL.TOTAL [MASS RATIO] IN SERUM OR PLASMA 23.4 25 04/02 Specimen Type: PLASMA No comment entered. Ordering Provider: MASHA NUNEZ Report Released Date/Time : Nov 18, 2023 06:38 AM Reporting Lab: [place] [facility] [address] [place] [address] Performin g Lab: [place] [facility] [address] [place] [address] [facility] B12 COBALAMIN (VITAMIN B12) [MASS/VOLUME] IN SERUM OR PLASMA 870 pg/mL 213 - 816 04/02 H Specimen Type: SERUM No comment entered. Ordering Provider: MASHA NUNEZ Report Released Date/Time : Nov 18, 2023 06:38 AM Reporting Lab: [place] [facility] [address] [place] [address] Performin g Lab: [place] [facility] [address] [place] [address] [facility] FOLATE (PB) FOLATE [MASS/VOLUME] IN SERUM OR PLASMA 9.6 ng/mL 7 - 20 04/02 Specimen Type: SERUM No comment entered. Ordering Provider: MASHA NUNEZ Report Released Date/Time : Nov 18, 2023 06:38 AM Reporting Lab: [place] [facility] [address] [place] [address] Performin g Lab: [place] [facility] [address] [place] [address] [facility] HGA1C HEMOGLOBIN A1C/HEMOGLOBI N.TOTAL IN BLOOD 6.3 4.0 - 6.0 04/02 H Specimen Type: BLOOD No comment entered. Ordering Provider: MASHA NUNEZ Report Released Date/Time : Nov 18, 2023 06:38 AM Reporting Lab: [place] [facility] [address] [place] [address] Performin g Lab: [place] [facility] [address] [place] [address] [facility] COMPREHENSI VE METABOLIC PANEL CREATININE [MASS/VOLUME] IN SERUM OR PLASMA 1.00 mg/dL 0.7 - 1.3 04/02 Specimen Type: PLASMA No comment entered. Ordering Provider: MASHA NUNEZ Report Released Date/Time : Nov 18, 2023 06:38 AM Reporting Lab: [place] [facility] [address] [place] [address] Performin g Lab: [place] [facility] [address] [place] [address] [facility] COMPREHENSI VE METABOLIC PANEL UREA NITROGEN [MASS/VOLUME] IN SERUM OR PLASMA 12 mg/dL 9 - 25 04/02 Specimen Type: PLASMA No comment entered. Ordering Provider: MASHA NUNEZ Report Released Date/Time : Nov 18, 2023 06:38 AM Reporting Lab: [place] [facility] [address] [place] [address] Performin g Lab: [place] [facility] [address] [place] [address] [facility] COMPREHENSI VE METABOLIC PANEL GLUCOSE [MASS/VOLUME] IN SERUM OR PLASMA 95 mg/dL 72 - 99 04/02 Specimen Type: PLASMA No comment entered. Ordering Provider: MASHA NUNEZ Report Released Date/Time : Nov 18, 2023 06:38 AM Reporting Lab: [place] [facility] [address] [place] [address] [facility] Lab: [place] [facility] [address] [place] [address] [facility] COMPREHENSI VE METABOLIC PANEL SODIUM [MOLES/VOLUME ] IN SERUM OR PLASMA 142 meq/L 136 - 145 04/02 Specimen Type: PLASMA No comment entered. Ordering Provider: MASHA NUNEZ Report Released Date/Time : Nov 18, 2023 06:38 AM Reporting Lab: [place] [facility] [address] [place] [address] 8 [facility] Lab: [place] [facility] [address] [place] [address] 8 [facility] COMPREHENSI VE METABOLIC PANEL POTASSIUM [MOLES/VOLUME ] IN SERUM OR PLASMA 4.6 meq/L 3.5 - 5 04/02 Specimen Type: PLASMA No comment entered. Ordering Provider: MASHA NUNEZ Report Released Date/Time : Nov 18, 2023 06:38 AM Reporting Lab: [place] [facility] [address] [place] [address] 8 [facility] Lab: [place] [facility] [address] [place] [address] 8 [facility] COMPREHENSI VE METABOLIC PANEL CHLORIDE [MOLES/VOLUME ] IN SERUM OR PLASMA 109 meq/L 98 - 107 04/02 H Specimen Type: PLASMA No comment entered. Ordering Provider: MASHA NUNEZ Report Released Date/Time : Nov 18, 2023 06:38 AM Reporting Lab: [place] [facility] [address] [place] [address] 8 [facility] Lab: [place] [facility] [address] [place] [address] 8 [facility] COMPREHENSI VE METABOLIC PANEL CARBON DIOXIDE, TOTAL [MOLES/VOLUME ] IN SERUM OR PLASMA 25 meq/L 22 - 31 04/02 Specimen Type: PLASMA No comment entered. Ordering Provider: MASHA NUNEZ Report Released Date/Time : Nov 18, 2023 06:38 AM Reporting Lab: [place] [facility] [address] [place] [address] 8 [facility] Lab: [place] [facility] [address] [place] [address] 8 [facility] COMPREHENSI VE METABOLIC PANEL CALCIUM [MASS/VOLUME] IN SERUM OR PLASMA 9.3 mg/dL 8.4 - 10.4 04/02 Specimen Type: PLASMA No comment entered. Ordering Provider: MASHA NUNEZ Report Released Date/Time : Nov 18, 2023 06:38 AM Reporting Lab: [place] [facility] [address] [place] [address] 8 [facility] Lab: [place] [facility] [address] [place] [address] 8 [facility] COMPREHENSI VE METABOLIC PANEL PROTEIN [MASS/VOLUME] IN SERUM OR PLASMA 8.5 g/dL 6 - 8.6 04/02 Specimen Type: PLASMA No comment entered. Ordering Provider: MASHA NUNEZ Report Released Date/Time : Nov 18, 2023 06:38 AM Reporting Lab: [place] [facility] [address] [place] [address] 8 [facility] Lab: [place] [facility] [address] [place] [address] 8 [facility] COMPREHENSI VE METABOLIC PANEL ALBUMIN [MASS/VOLUME] IN SERUM OR PLASMA 4.0 g/dL 3.4 - 5 04/02 Specimen Type: PLASMA No comment entered. Ordering Provider: MASHA NUNEZ Report Released Date/Time : Nov 18, 2023 06:38 AM Reporting Lab: [place] [facility] [address] [place] [address] 8 [facility] Lab: [place] [facility] [address] [place] [address] 8 [facility] COMPREHENSI VE METABOLIC PANEL BILIRUBIN.TOT AL [MASS/VOLUME] IN SERUM OR PLASMA 0.3 mg/dL 0.2 - 1.2 04/02 Specimen Type: PLASMA No comment entered. Ordering Provider: MASHA NUNEZ Report Released Date/Time : Nov 18, 2023 06:38 AM Reporting Lab: [place] [facility] [address] [place] [address] 8 [facility] Lab: [place] [facility] [address] [place] [address] 8 [facility] COMPREHENSI VE METABOLIC PANEL ALKALINE PHOSPHATASE [ENZYMATIC ACTIVITY/VOLU ME] IN SERUM OR PLASMA 62 U/L 40 - 150 04/02 Specimen Type: PLASMA No comment entered. Ordering Provider: MASHA NUNEZ Report Released Date/Time : Nov 18, 2023 06:38 AM Reporting Lab: [place] [facility] [address] [place] [address] 8 [facility] Lab: [place] [facility] [address] [place] [address] 8 [facility] COMPREHENSI VE METABOLIC PANEL ASPARTATE AMINOTRANSFER ASE [ENZYMATIC ACTIVITY/VOLU ME] IN SERUM OR PLASMA 19 U/L 5 - 34 04/02 Specimen Type: PLASMA No comment entered. Ordering Provider: MASHA NUNEZ Report Released Date/Time : Nov 18, 2023 06:38 AM Reporting Lab: [place] [facility] [address] [place] [address] [facility] Lab: [place] [facility] [address] [place] [address] 8 [facility] COMPREHENSI VE METABOLIC PANEL ALANINE AMINOTRANSFER ASE [ENZYMATIC ACTIVITY/VOLU ME] IN SERUM OR PLASMA 9 U/L 8 - 40 04/02 Specimen Type: PLASMA No comment entered. Ordering Provider: MASHA NUNEZ Report Released Date/Time : Nov 18, 2023 06:38 AM Reporting Lab: [place] [facility] [address] [place] [address] 8 [facility] Lab: [place] [facility] [address] [place] [address] 8 [facility] COMPREHENSI VE METABOLIC PANEL GLOMERULAR FILTRATION RATE/1.73 SQ M.PREDICTED [VOLUME RATE/AREA] IN SERUM, PLASMA OR BLOOD BY CREATININE-BA SED FORMULA (CKD-EPI 2020) 81 04/02 Specimen Type: PLASMA No comment entered. Ordering Provider: MASHA NUNEZ Report Released Date/Time : Nov 18, 2023 06:38 AM Reporting Lab: [place] [facility] [address] [place] [address] 8 [facility] Lab: [place] [facility] [address] [place] [address] 8 [facility] CBC LEUKOCYTES [#/VOLUME] IN BLOOD BY AUTOMATED COUNT 5.1 10*3/u L 3.6 - 11.2 04/02 Specimen Type: BLOOD No comment entered. Ordering Provider: MASHA NUNEZ Report Released Date/Time : Mar 21, 2024 12:33 PM Reporting Lab: [place] [facility] [address] [place] [address] 8 [facility]formin [facility] Lab: [place] [facility] [address] [place] [address] 8 [facility] CBC ERYTHROCYTES [#/VOLUME] IN BLOOD BY AUTOMATED COUNT 3.99 10*6/u L 4.10 - 5.70 04/02 L Specimen Type: BLOOD No comment entered. Ordering Provider: MASHA NUNEZ Report Released Date/Time : Mar 21, 2024 12:33 PM Reporting Lab: [place] [facility] [address] [place] [address] 8 [facility]formin [facility] Lab: [place] [facility] [address] [place] [address] 8 [facility] CBC HEMOGLOBIN [MASS/VOLUME] IN BLOOD 11.2 g/dL 13.1 - 16.8 04/02 L Specimen Type: BLOOD No comment entered. Ordering Provider: MASHA NUNEZ Report Released Date/Time : Mar 21, 2024 12:33 PM Reporting Lab: [place] [facility] [address] [place] [address] 8 [facility] Lab: [place] [facility] [address] [place] [address] 8 [facility] CBC HEMATOCRIT [VOLUME FRACTION] OF BLOOD 35.7 38.2 - 48.4 04/02 L Specimen Type: BLOOD No comment entered. Ordering Provider: MASHA NUNEZ Report Released Date/Time : Mar 21, 2024 12:33 PM Reporting Lab: [place] [facility] [address] [place] [address] 8 Performin g Lab: [place] [facility] [address] [place] [address] [facility] CBC MCV [ENTITIC VOLUME] BY AUTOMATED COUNT 89.5 fL 80.0 - 100.0 04/02 Specimen Type: BLOOD No comment entered. Ordering Provider: MASHA NUNEZ Report Released Date/Time : Mar 21, 2024 12:33 PM Reporting Lab: [place] [facility] [address] [place] [address] 8 Performin g Lab: [place] [facility] [address] [place] [address] 8 [facility] CBC MCH [ENTITIC MASS] BY AUTOMATED COUNT 28.1 pg 27.0 - 34.0 04/02 Specimen Type: BLOOD No comment entered. Ordering Provider: MASHA NUNEZ Report Released Date/Time : Mar 21, 2024 12:33 PM Reporting Lab: [place] [facility] [address] [place] [address] 8 Performin g Lab: [place] [facility] [address] [place] [address] 8 [facility] CBC MCHC [MASS/VOLUME] BY AUTOMATED COUNT 31.4 g/dL 33.0 - 36.0 04/02 L Specimen Type: BLOOD No comment entered. Ordering Provider: MASHA NUNEZ Report Released Date/Time : Mar 21, 2024 12:33 PM Reporting Lab: [place] [facility] [address] [place] [address] 8 Performin g Lab: [place] [facility] [address] [place] [address] 8 [facility] CBC PLATELETS [#/VOLUME] IN BLOOD BY AUTOMATED COUNT 216 10*3/u L 150 - 400 04/02 Specimen Type: BLOOD No comment entered. Ordering Provider: MASHA NUNEZ Report Released Date/Time : Mar 21, 2024 12:33 PM Reporting Lab: [place] [facility] [address] [place] [address] 8 [facility]formin g Lab: [place] [facility] [address] [place] [address] 8 [facility] CBC PLATELET MEAN VOLUME [ENTITIC VOLUME] IN BLOOD BY AUTOMATED COUNT 10.2 fL 7.5 - 11.2 04/02 Specimen Type: BLOOD No comment entered. Ordering Provider: MASHA NUNEZ Report Released Date/Time : Mar 21, 2024 12:33 PM Reporting Lab: [place] [facility] [address] [place] [address] 8 Performin g Lab: [place] [facility] [address] [place] [address] [facility] CBC ERYTHROCYTE DISTRIBUTION WIDTH [RATIO] BY AUTOMATED COUNT 14.9 11.8 - 15.1 04/02 Specimen Type: BLOOD No comment entered. Ordering Provider: MASHA NUNEZ Report Released Date/Time : Mar 21, 2024 12:33 PM Reporting Lab: [place] [facility] [address] [place] [address] 8 Performin g Lab: [place] [facility] [address] [place] [address] 8 [facility] CBC LYMPHOCYTES/1 00 LEUKOCYTES IN BLOOD BY AUTOMATED COUNT 24.5 04/02 Specimen Type: BLOOD No comment entered. Ordering Provider: MASHA NUNEZ Report Released Date/Time : Mar 21, 2024 12:33 PM Reporting Lab: [place] [facility] [address] [place] [address] 8 Performin g Lab: [place] [facility] [address] [place] [address] 8 [facility] CBC MONOCYTES/100 LEUKOCYTES IN BLOOD BY AUTOMATED COUNT 10.3 04/02 Specimen Type: BLOOD No comment entered. Ordering Provider: MASHA NUNEZ Report Released Date/Time : Mar 21, 2024 12:33 PM Reporting Lab: [place] [facility] [address] [place] [address] 8 Performin g Lab: [place] [facility] [address] [place] [address] 8 [facility] CBC NEUTROPHILS/1 00 LEUKOCYTES IN BLOOD BY AUTOMATED COUNT 61.2 04/02 Specimen Type: BLOOD No comment entered. Ordering Provider: MASHA NUNEZ Report Released Date/Time : Mar 21, 2024 12:33 PM Reporting Lab: [place] [facility] [address] [place] [address] 8 [facility]formin g Lab: [place] [facility] [address] [place] [address] 8 [facility] CBC EOSINOPHILS/1 00 LEUKOCYTES IN BLOOD BY AUTOMATED COUNT 3.2 04/02 Specimen Type: BLOOD No comment entered. Ordering Provider: MASHA NUNEZ Report Released Date/Time : Mar 21, 2024 12:33 PM Reporting Lab: [place] [facility] [address] [place] [address] 8 Performin g Lab: [place] [facility] [address] [place] [address] 8 [facility] CBC BASOPHILS/100 LEUKOCYTES IN BLOOD BY AUTOMATED COUNT 0.6 04/02 Specimen Type: BLOOD No comment entered. Ordering Provider: MASHA NUNEZ Report Released Date/Time : Mar 21, 2024 12:33 PM Reporting Lab: [place] [facility] [address] [place] [address] 8 [facility]formin g Lab: [place] [facility] [address] [place] [address] 8 [facility] CBC LYMPHOCYTES [#/VOLUME] IN BLOOD BY AUTOMATED COUNT 1.24 10*3/u L 0.77 - 4.50 04/02 Specimen Type: BLOOD No comment entered. Ordering Provider: MASHA NUNEZ Report Released Date/Time : Mar 21, 2024 12:33 PM Reporting Lab: [place] [facility] [address] [place] [address] 8 [facility] Lab: [place] [facility] [address] [place] [address] 8 [facility] CBC MONOCYTES [#/VOLUME] IN BLOOD BY AUTOMATED COUNT 0.52 10*3/u L 0.19 - 0.8 04/02 Specimen Type: BLOOD No comment entered. Ordering Provider: MASHA NUNEZ Report Released Date/Time : Mar 21, 2024 12:33 PM Reporting Lab: [place] [facility] [address] [place] [address] 8 [facility] Lab: [place] [facility] [address] [place] [address] 8 [facility] CBC NEUTROPHILS [#/VOLUME] IN BLOOD BY AUTOMATED COUNT 3.10 10*3/u L 2.10 - 8.00 04/02 Specimen Type: BLOOD No comment entered. Ordering Provider: MASHA NUNEZ Report Released Date/Time : Mar 21, 2024 12:33 PM Reporting Lab: [place] [facility] [address] [place] [address] 8 [facility] Lab: [place] [facility] [address] [place] [address] 8 [facility] CBC EOSINOPHILS [#/VOLUME] IN BLOOD BY AUTOMATED COUNT 0.16 10*3/u L 0.00 - 0.60 04/02 Specimen Type: BLOOD No comment entered. Ordering Provider: MASHA NUNEZ Report Released Date/Time : Mar 21, 2024 12:33 PM Reporting Lab: [place] [facility] [address] [place] [address] 8 [facility] Lab: [place] [facility] [address] [place] [address] 8 [facility] CBC BASOPHILS [#/VOLUME] IN BLOOD BY AUTOMATED COUNT 0.03 10*3/u L 0.00 - 0.20 04/02 Specimen Type: BLOOD No comment entered. Ordering Provider: MASHA NUNEZ Report Released Date/Time : Mar 21, 2024 12:33 PM Reporting Lab: [place] [facility] [address] [place] [address] 8 [facility] Lab: [place] [facility] [address] [place] [address] 8 [facility] CBC IMMATURE GRANULOCYTES/ 100 LEUKOCYTES IN BLOOD BY AUTOMATED COUNT 0.2 04/02 Specimen Type: BLOOD No comment entered. Ordering Provider: MASHA NUNEZ Report Released Date/Time : Mar 21, 2024 12:33 PM Reporting Lab: [place] [facility] [address] [place] [address] 8 [facility] g Lab: [place] [facility] [address] [place] [address] 8 [facility] CBC IMMATURE GRANULOCYTES [#/VOLUME] IN BLOOD BY AUTOMATED COUNT 0.01 10*3/u L 0.00 - 0.05 04/02 Specimen Type: BLOOD No comment entered. Ordering Provider: MASHA NUNEZ Report Released Date/Time : Mar 21, 2024 12:33 PM Reporting Lab: [place] [facility] [address] [place] [address] 8 [facility] Lab: [place] [facility] [address] [place] [address] 8 [facility] COMPREHENSI VE METABOLIC PANEL CREATININE [MASS/VOLUME] IN SERUM OR PLASMA 1.10 mg/dL 0.7 - 1.3 01/16 Specimen Type: PLASMA No comment entered. Ordering Provider: SHERRY STEWARD Report Released Date/Time : Jan 17, 2024 11:49 AM Reporting Lab: [place] [facility] [address] [place] [address] 8 [facility] Lab: [place] [facility] [address] [place] [address] 8 [facility] COMPREHENSI VE METABOLIC PANEL UREA NITROGEN [MASS/VOLUME] IN SERUM OR PLASMA 12 mg/dL 9 - 25 01/16 Specimen Type: PLASMA No comment entered. Ordering Provider: SHERRY STEWARD Report Released Date/Time : Jan 17, 2024 11:49 AM Reporting Lab: [place] [facility] [address] [place] [address] 8 [facility] Lab: [place] [facility] [address] [place] [address] 8 [facility] COMPREHENSI VE METABOLIC PANEL GLUCOSE [MASS/VOLUME] IN SERUM OR PLASMA 99 mg/dL 72 - 99 01/16 Specimen Type: PLASMA No comment entered. Ordering Provider: SHERRY STEWARD Report Released Date/Time : Jan 17, 2024 11:49 AM Reporting Lab: [place] [facility] [address] [place] [address] 8 [facility]formin [facility] Lab: [place] [facility] [address] [place] [address] 8 [facility] COMPREHENSI VE METABOLIC PANEL SODIUM [MOLES/VOLUME ] IN SERUM OR PLASMA 139 meq/L 136 - 145 01/16 Specimen Type: PLASMA No comment entered. Ordering Provider: SHERRY STEWARD Report Released Date/Time : Jan 17, 2024 11:49 AM Reporting Lab: [place] [facility] [address] [place] [address] 8 [facility]formin g Lab: [place] [facility] [address] [place] [address] 8 [facility] COMPREHENSI VE METABOLIC PANEL POTASSIUM [MOLES/VOLUME ] IN SERUM OR PLASMA 4.3 meq/L 3.5 - 5 01/16 Specimen Type: PLASMA No comment entered. Ordering Provider: SHERRY STEWARD Report Released Date/Time : Jan 17, 2024 11:49 AM Reporting Lab: [place] [facility] [address] [place] [address] 8 Performin g Lab: [place] [facility] [address] [place] [address] 8 [facility] COMPREHENSI VE METABOLIC PANEL CHLORIDE [MOLES/VOLUME ] IN SERUM OR PLASMA 106 meq/L 98 - 107 01/16 Specimen Type: PLASMA No comment entered. Ordering Provider: Alejandro STEWARD Report Released Date/Time : Jan 17, 2024 11:49 AM Reporting Lab: [place] [facility] [address] [place] [address] 8 Performin g Lab: [place] [facility] [address] [place] [address] 8 [facility] COMPREHENSI VE METABOLIC PANEL CARBON DIOXIDE, TOTAL [MOLES/VOLUME ] IN SERUM OR PLASMA 24 meq/L 22 - 31 01/16 Specimen Type: PLASMA No comment entered. Ordering Provider: SHERRY STEWARD Report Released Date/Time : Jan 17, 2024 11:49 AM Reporting Lab: [place] [facility] [address] [place] [address] 8 [facility]formin g Lab: [place] [facility] [address] [place] [address] 8 [facility] COMPREHENSI VE METABOLIC PANEL CALCIUM [MASS/VOLUME] IN SERUM OR PLASMA 9.6 mg/dL 8.4 - 10.4 01/16 Specimen Type: PLASMA No comment entered. Ordering Provider: SHERRY STEWARD Report Released Date/Time : Jan 17, 2024 11:49 AM Reporting Lab: [place] [facility] [address] [place] [address] 8 [facility]formin g Lab: [place] [facility] [address] [place] [address] 8 [facility] COMPREHENSI VE METABOLIC PANEL PROTEIN [MASS/VOLUME] IN SERUM OR PLASMA 8.1 g/dL 6 - 8.6 01/16 Specimen Type: PLASMA No comment entered. Ordering Provider: SHERRY STEWARD Report Released Date/Time : Jan 17, 2024 11:49 AM Reporting Lab: [place] [facility] [address] [place] [address] 8 [facility]formin g Lab: [place] [facility] [address] [place] [address] 8 [facility] COMPREHENSI VE METABOLIC PANEL ALBUMIN [MASS/VOLUME] IN SERUM OR PLASMA 4.0 g/dL 3.4 - 5 01/16 Specimen Type: PLASMA No comment entered. Ordering Provider: SHERRY STEWARD Report Released Date/Time : Jan 17, 2024 11:49 AM Reporting Lab: [place] [facility] [address] [place] [address] 8 [facility]formin g Lab: [place] [facility] [address] [place] [address] 8 [facility] COMPREHENSI VE METABOLIC PANEL BILIRUBIN.TOT AL [MASS/VOLUME] IN SERUM OR PLASMA 0.4 mg/dL 0.2 - 1.2 01/16 Specimen Type: PLASMA No comment entered. Ordering Provider: SHERRY STEWARD Report Released Date/Time : Jan 17, 2024 11:49 AM Reporting Lab: [place] [facility] [address] [place] [address] 8 [facility] g Lab: [place] [facility] [address] [place] [address] 8 [facility] COMPREHENSI VE METABOLIC PANEL ALKALINE PHOSPHATASE [ENZYMATIC ACTIVITY/VOLU ME] IN SERUM OR PLASMA 62 U/L 40 - 150 01/16 Specimen Type: PLASMA No comment entered. Ordering Provider: SHERRY STEWARD Report Released Date/Time : Jan 17, 2024 11:49 AM Reporting Lab: [place] [facility] [address] [place] [address] 8 [facility] Lab: [place] [facility] [address] [place] [address] 8 [facility] COMPREHENSI VE METABOLIC PANEL ASPARTATE AMINOTRANSFER ASE [ENZYMATIC ACTIVITY/VOLU ME] IN SERUM OR PLASMA 18 U/L 5 - 34 01/16 Specimen Type: PLASMA No comment entered. Ordering Provider: SHERRY STEWARD Report Released Date/Time : Jan 17, 2024 11:49 AM Reporting Lab: [place] [facility] [address] [place] [address] 8 [facility]formin g Lab: [place] [facility] [address] [place] [address] 8 [facility] COMPREHENSI VE METABOLIC PANEL ALANINE AMINOTRANSFER ASE [ENZYMATIC ACTIVITY/VOLU ME] IN SERUM OR PLASMA 12 U/L 8 - 01/16 Specimen Type: PLASMA No comment entered. Ordering Provider: SHERRY STEWARD Report Released Date/Time : Jan 17, 2024 11:49 AM Reporting Lab: [place] [facility] [address] [place] [address] Performin g Lab[place] [facility] [address] [place] [address] [facility] COMPREHENSI VE METABOLIC PANEL GLOMERULAR FILTRATION RATE/1.73 SQ M.PREDICTED [VOLUME RATE/AREA] IN SERUM, PLASMA OR BLOOD BY CREATININE-BA SED FORMULA (CKD-EPI 2020) 72 01/16 Specimen Type: PLASMA No comment entered. Ordering Provider: SHERRY STEWARD Report Released Date/Time : Jan 17, 2024 11:49 AM Reporting Lab: [place] [facility] [address] [place] [address] Performin g Lab: [place] [facility] [address] [place] [address] [facility] ALT/SGPT ALANINE AMINOTRANSFER ASE [ENZYMATIC ACTIVITY/VOLU ME] IN SERUM OR PLASMA 14 U/L - 11/06 Specimen Type: PLASMA No comment entered. Ordering Provider: MASHA NUNEZ Report Released Date/Time : Aug 31, 2023 04:35 PM Reporting Lab: [place] [facility] [address] [place] [address] Performin g Lab: [place] [facility] [address] [place] [address] [facility] Vital Signs Combined list of inpatient and outpatient Vital Signs from [employer] of Defense and [employer] Affairs, ranging from 12 months to all on record, depending upon the facility. Vital Sign Value Date Comments Source SYSTOLIC BLOOD PRESSURE 122 06/28/2024 13:25:00 [facility] DIASTOLIC BLOOD PRESSURE 64 06/28/2024 13:25:00 [facility] PULSE OXIMETRY 92 06/28/2024 13:25:00 [facility] WEIGHT 153.8 06/28/2024 13:25:00 [facility] BMI 23 kg/m2 06/28/2024 13:25:00 [facility] PAIN 4 06/28/2024 13:25:00 [facility] TEMPERATURE 98.0 06/28/2024 13:25:00 [facility] PULSE 78 06/28/2024 13:25:00 [facility] RESPIRATION 18 06/28/2024 13:25:00 [facility] SYSTOLIC BLOOD PRESSURE 95 04/12/2024 16:02:00 [facility] DIASTOLIC BLOOD PRESSURE 61 04/12/2024 16:02:00 [facility] [place] [facility] PULSE OXIMETRY 92 04/12/2024 16:02:00 [facility] [place] [facility] TEMPERATURE 97.9 04/12/2024 16:02:00 [place] [facility] PULSE 84 04/12/2024 16:02:00 [place] [facility] SYSTOLIC BLOOD PRESSURE 89 03/12/2024 15:21:00 [place] [facility] DIASTOLIC BLOOD PRESSURE 51 03/12/2024 15:21:00 [place] [facility] PULSE OXIMETRY 92 03/12/2024 15:21:00 [facility] [place] [facility] WEIGHT 157.1 03/12/2024 15:21:00 [place] [facility] BMI 23 kg/m2 03/12/2024 15:21:00 [place] [facility] PAIN 4 03/12/2024 15:21:00 [place] [facility] TEMPERATURE 98.4 03/12/2024 15:21:00 [place] [facility] PULSE 84 03/12/2024 15:21:[place] [facility] RESPIRATION 20 03/12/2024 15:21:00 [place] [facility] SYSTOLIC BLOOD PRESSURE 101 02/20/2024 16:46:00 [facility] DIASTOLIC BLOOD PRESSURE 53 02/20/2024 16:46:00 [facility] TEMPERATURE 99 02/20/2024 16:46:00 [facility] PULSE 96 02/20/2024 16:46:00 [facility]OC SYSTOLIC BLOOD PRESSURE 115 12/15/2023 10:46:00 [facility] CBOC DIASTOLIC BLOOD PRESSURE 67 12/15/2023 10:46:00 [facility] CBOC PULSE OXIMETRY 96 12/15/2023 10:46:00 [facility] WEIGHT 155.5 12/15/2023 10:46:00 [facility] CB[facility] BMI 23 kg/m2 12/15/2023 10:46:00 [facility] PAIN 3 12/15/2023 10:46:00 [facility] TEMPERATURE 98.1 12/15/2023 10:46:00 [facility] PULSE 87 12/15/2023 10:46:00 [facility] RESPIRATION 18 12/15/2023 10:46:00 [facility] Encounters Combined list of: 1) Encounters from Department of [facility] facilities going backup to the last 18 months, not all MD inpatient encounters are included; 2) Encounters from the Department of [facility] facilities going backup to 280 months. Location Location Details Encounter Type Encounter Number Reason For Visit Attending Provider ADM Date DC Date Status Disposition Source [facility] Outpatient Encounter [id number] 02/24 [facility] Outpatient Encounter [id number] 02/25 [facility] En[facility] [id number] 03/08 [facility] CASE MANAGEMENT [id number] Diagnos is: ICD-10- CM J44.9 Chronic obstruc tive pulmona ry disease , unspeci fied LASDELMY BURKS A E 03/09 [facility] [place] [facility] CASE MANAGEMENT [id number] Diagnos is: ICD-10- CM 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 DELMY STINSON A E 03/09 [place] [facility] [place] [facility] Outpatient Encounter [id number] [id number] 03/09 [place] [facility] Outpatient Encounter [id number] [id number] 03/16 [facility] [place] [facility] Outpatient Encounter [id number] ANTHONY CALLE 03/18 [place] [facility] Outpatient Encounter [id number] [id number] 03/21 [facility] [place] [facility] Outpatient Encounter [id number] [id number] Hector HANCOCK ATRICIA A 03/22 [place] [facility] CBOC OFF/OP EST JUNE X REQ PHY/QHP [id number] [id number] Diagnos is: ICD-10- CM J44.9 Chronic obstruc tive pulmona ry disease , unspeci fied MITALI GONZALES A 03/24 [facility] [place] [facility] HC PRO PHONE CALL 11-20 MIN [id number] [id number] Diagnos is: ICD-10- CM Z51.81 Encount er for therape utic drug level monitor TINY Cunningham 03/30 [place] [facility] Outpatient Encounter [id number] [id number] 03/31 [facility] Outpatient Encounter [id number] [id number] 04/06 [facility] Outpatient Encounter [id number] [id number] 04/06 [facility] Outpatient Encounter [id number] [id number] [facility] Outpatient Encounter [id number] [id number] SUPA KELLY MANJIT Phillips 04/24 [facility] Outpatient Encounter [id number] [id number] 05/03 [facility] Outpatient Encounter [id number] [id number] 05/05 [facility] [place] [facility] Outpatient Encounter [id number] [id number] 05/[address] [place] 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 Outpatient Encounter [id number] [id number] 05/17 [facility] Outpatient Encounter [id number] [id number] 06/12 [facility] [place] [facility] Outpatient Encounter [id number] [id number] 06/13 [place] [facility] Outpatient Encounter [id number] [id number] 06/13 [facility] [place] [facility] Outpatient Encounter [id number] [id number] 06/19 [place] [facility] Outpatient Encounter 99740-4.65 [id number] 06/20 [facility] [place] [facility] Outpatient Encounter [id number] [id number] 06/26 [facility] En[facility] 60983-7.65 [id number] 06/26 [facility] Outpatient Encounter 52903-5.65 [id number] 07/07 [facility] Outpatient Encounter 07985-7.65 [id number] 07/11 [facility] Outpatient Encounter [id number] [id number] 07/11 [facility] Outpatient Encounter 55792-6.58 [id number] 07/17 [facility] OFFICE O/P EST MOD 30 MIN [id number] [id number] Diagnos is: ICD-10- CM Z00.00 Encntr for general adult medical exam w/o abnorma l finding s KEYSHAWN STEWARD 07/17 [facility] MTMS BY PHARM EST 15 MIN [id number] [id number] Diagnos is: ICD-10- CM Z51.81 Encount er for therape utic drug level monitor TINY Cunningham 07/17 [facility] [id number] [id number] 07/19 [facility] Outpatient Encounter [id number] [id number] JAMIA PATEL 07/24 [facility] Outpatient Encounter [id number] [id number] 07/24 [facility] HC PRO PHONE CALL 5-10 MIN [id number] [id number] Diagnos is: ICD-10- CM Z74.1 Need for assista nce with persona l ARVIND Carl 08/02 [facility] Outpatient Encounter [id number] [id number] 08/07 [facility] Outpatient Encounter [id number] [id number] 08/08 [facility] OFFICE O/P EST MOD 30 MIN [id number] [id number] Diagnos is: ICD-10- CM J18.8 Other pneumon ia, unspeci fied organis KEYSHAWN Deluna 08/14 [facility] Outpatient Encounter [id number] [id number] 08/14 [facility] Outpatient Encounter [id number] [id number] 08/25 [facility] MTMS BY PHARM ADDL 15 MIN [id number] [id number] Diagnos is: ICD-10- CM E78.5 Hyperli pidemia , unspeci fied Kraig NUNEZ LUIS ARMANDO W 08/30 [facility] [place] [facility] Outpatient Encounter [id number] [id number] 09/01 [facility] Outpatient Encounter [id number] [id number] 09/08 [facility] Outpatient Encounter [id number] [id number] 09/12 [facility] Outpatient Encounter 83998-5.65 [id number] 09/18 [facility] MTMS BY PHARM EST 15 MIN [id number] [id number] Diagnos is: ICD-10- CM Z51.81 Encount er for therape utic drug level monitor TINY Cunningham 09/19 [facility] Outpatient Encounter [id number] [id number] 09/19 [facility] Outpatient Encounter [id number] [id number] 09/27 [facility] Outpatient Encounter 34989-7.65 [id number] 10/03 [facility] Outpatient Encounter 88515-5.65 [id number] 10/10 [facility] Outpatient Encounter [id number] [id number] 10/11 [facility] Outpatient Encounter [id number] [id number] ARVIND NOVOA Rashida 10/25 [facility] Outpatient Encounter [id number] [id number] KEYSHAWN STEWARD G 11/06 [facility] OFFICE O/P EST MOD 30 MIN [id number] [id number] Diagnos is: ICD-10- CM J18.8 Other pneumon ia, unspeci fied organis m KEYSHAWN STEWARD ELIZABET G 11/06 [facility] HC PRO PHONE CALL 5-10 MIN [id number] [id number] Diagnos is: ICD-10- CM 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 KAILA WHITNEY 11/07 [facility] [place] [facility] Outpatient Encounter [id number] [id number] 11/07 [facility] 43676-3.65 [id number] 11/10 [facility] Outpatient Encounter [id number] [id number] 11/10 [facility] Outpatient Encounter 06364-7.58 [id number] 11/14 [facility] CBOC IMMUNIZATI ON ADMIN [id number] [id number] Diagnos is: ICD-10- CM Z23 Encount er for immuniz BARNEY Briceno 11/14 [facility] [place] [facility] Outpatient Encounter [id number] [id number] 11/15 [place] [facility] [place] [facility] Outpatient Encounter [id number] [id number] 11/16 [place] [facility] MTMS BY PHARM ADDL 15 MIN [id number] [id number] Diagnos is: ICD-10- CM J44.9 Chronic obstruc tive pulmona ry disease , unspeci fied Kraig NUNEZ LUIS ARMANDO W 11/17 [facility] Outpatient Encounter [id number] [id number] 11/24 [facility] [place] [facility] MEASURE BLOOD OXYGEN LEVEL 92832-2.65 [id number] Diagnos is: ICD-10- CM J44.89 Other specifi ed chronic obstruc tive pulmona ry disease POYNOR,HOLGER HELLE B 11/27 [place] [facility] Outpatient Encounter [id number] [id number] 11/28 [facility] Outpatient Encounter 82250-2.65 [id number] 11/29 [facility] Outpatient Encounter 31447-7.65 [id number] 11/29 [facility] Outpatient Encounter 79215-2.65 [id number] JAMIA PATEL L 12/04 [facility] [place] [facility] Outpatient Encounter [id number] [id number] 12/04 [place] [facility] Outpatient Encounter 50595-4.65 [id number] 12/06 [facility] Outpatient Encounter [id number] [id number] 12/06 [facility] [place] [facility] Outpatient Encounter [id number] [id number] 12/07 [place] [facility] [place] [facility] Outpatient Encounter [id number] [id number] 12/11 [place] [facility] Outpatient Encounter [id number] [id number] KEYSHAWN STEWARD G 12/11 [facility] OFFICE O/P EST MOD 30 MIN [id number] [id number] Diagnos is: ICD-10- CM Z09 Encntr for f/u exam aft trtmt for cond oth than malig neoplm KEYSHAWN STEWARD G 12/14 [facility] Outpatient Encounter [id number] [id number] 12/19 [facility] Outpatient Encounter [id number] [id number] 12/19 [facility] Outpatient Encounter 83529-6.65 [id number] 12/29 [facility] [place] [facility] Outpatient Encounter [id number] [id number] 01/05 [place] [facility] Outpatient Encounter 90795-4.65 [id number] 01/05 [facility] Outpatient Encounter 77731-3.65 [id number] 3 01/09 [facility] [place] [facility] Outpatient Encounter [id number] [id number] 01/10 [facility] Outpatient Encounter 85802-7.65 [id number] 01/23 [facility] Outpatient Encounter 80798-0.65 [id number] ARVIND NOVOA 01/25 [facility] Outpatient Encounter [id number] [id number] 01/25 [facility] Outpatient Encounter 71726-2.65 [id number] 01/25 [facility] Outpatient Encounter 07758-4.65 [id number] 01/29 [facility] Outpatient Encounter [id number] [id number] 02/19 [facility] OFF/OP EST MAY X REQ PHY/QHP [id number] [id number] Diagnos is: ICD-10- CM R06.00 Dyspnea , unspeci fied CUSTRED,TO RRI J 02/19 [facility] Outpatient Encounter [id number] [id number] 02/19 [facility] OFFICE O/P EST MOD 30 MIN [id number] [id number] Diagnos is: ICD-10- CM R06.02 Shortne ss of breath KEYSHAWN STEWARD G 02/19 [facility] [id number] [id number] 02/19 [facility] [place] [facility] Outpatient Encounter 81987-2.65 [id number] 02/19 [place] [facility] [place] [facility] Outpatient Encounter 98737-6.65 [id number] 02/20 [place] [facility] Outpatient Encounter 74894-8.65 [id number] JORGE,AP RIL L 02/20 [facility] MTMS BY PHARM ADDL 15 MIN [id number] [id number] Diagnos is: ICD-10- CM J44.9 Chronic obstruc tive pulmona ry disease , unspeci fied ENRIQUE,J LUIS ARMANDO W 02/23 [facility] [place] [facility] Outpatient Encounter [id number] [id number] 03/12 [place] [facility] OFFICE O/P EST MOD 30 MIN [id number] [id number] Diagnos is: ICD-10- CM J20.9 Acute bronchi tis, unspeci fied KEYSHAWN STEWARD STEL G 03/12 [facility] Outpatient Encounter [id number] [id number] 03/15 [facility] Outpatient Encounter [id number] [id number] 03/20 [facility] MTMS BY PHARM ADDL 15 MIN [id number] [id number] Diagnos is: ICD-10- CM J44.9 Chronic obstruc tive pulmona ry disease , unspeci fied ENRIQUE,J LUIS ARMANDO W 03/21 [facility] MTMS BY PHARM ADDL 15 MIN [id number] [id number] Diagnos is: ICD-10- CM J44.9 Chronic obstruc tive pulmona ry disease , unspeci fied Kraig NUNEZ W 04/06 [facility] Outpatient Encounter 41631-7.65 [id number] 04/12 [facility] OFF/OP EST JUNE X REQ PHY/QHP [id number] [id number] Diagnos is: ICD-10- CM R04.0 Epistax is KAILA WHITNEY 04/12 [facility] Outpatient Encounter 06027-7.65 [id number] 04/13 [facility] Outpatient Encounter 16742-6.65 [id number] JAMIA PATEL RIL L 04/13 [facility] Outpatient Encounter 39215-3.65 [id number] 04/13 [facility] Outpatient Encounter 10477-5.65 [id number] 04/13 [facility] Outpatient Encounter 37956-9.65 [id number] JAMIA PATEL RIL L 04/16 [facility] Outpatient Encounter 82937-3.65 [id number] SUPA KELLY 04/26 [facility] Outpatient Encounter 69059-8.65 [id number] 04/27 [facility] Outpatient Encounter 24836-6.65 [id number] 3 05/17 [facility] Outpatient [facility]counter 78113-9.65 [id number] 05/23 [facility] Outpatient Encounter 46232-5.65 [id number] 7 05/25 [facility] [place] [facility] Outpatient Encounter [id number] [id number] 06/04 [place] [facility] [place] [facility] Outpatient Encounter [id number] [id number] 06/19 [place] [facility] [place] [facility] Outpatient Encounter 16832-6.65 [id number] 06/25 [place] [facility] Outpatient Encounter 24033-1.65 [id number] JAMIA PATEL RIL L 06/25 [facility] [place] [facility] Outpatient Encounter [id number] [id number] 06/27 [place] [facility] Outpatient Encounter 32855-7.65 [id number] 3 06/28 [facility] Outpatient Encounter [id number] [id number] 06/28 [facility] OFFICE O/P EST MOD 30 MIN [id number] [id number] Diagnos is: ICD-10- CM J44.9 Chronic obstruc tive pulmona ry disease , unspeci fied KEYSHAWN STEWARD 06/28 [facility] [place] [facility] Outpatient Encounter [id number] [id number] 07/03 [facility] Outpatient Encounter [id number] [id number] 07/06 [facility] Outpatient Encounter [id number] [id number] 07[facility]09 [facility] BY PHARM ADDL 15 MIN [id number] [id number] Diagnos is: ICD-10- CM J44.9 Chronic obstruc tive pulmona ry disease , unspeci TERRY Zheng 07/20 [facility] PH1 ASSMT&MGMT NQHP - 89579-6.65 [id number] Diagnos is: ICD-10- CM Z74.1 Need for assista nce with personSUPA Teresa 07/20 [facility] Outpatient Encounter 79708-4.65 [id number] JAMIA PATEL 07/30 [facility] Outpatient Encounter 70038-4.65 [id number] 08/03 [facility] Outpatient Encounter [id number] [id number] 08[facility]16 [facility] PHARM EST 15 MIN [id number] [id number] Diagnos is: ICD-10- CM J44.9 Chronic obstruc tive pulmona ry disease , unspeci TERRY Zheng 08/17 [facility] Outpatient Encounter [id number] [id number] KELLIE PEREZ 08/20 [facility] Outpatient Encounter 14031-2.65 [id number] 08/20 [facility] [place] [facility] Outpatient Encounter [id number] [id number] TRAVIS FREIRE 08/21 [place] [facility] [place] [facility] Outpatient Encounter [id number] [id number] 08/21 [place] [facility] [place] [facility] BRIEF COMUNICAJ TECH-BSD SVC 80709-3.65 [id number] Diagnos is: ICD-10- CM R04.0 Epistax is Wolfgang BRADLEY 08/21 [place] [facility] [place] [facility] Outpatient Encounter [id number] [id number] 08/23 [place] [facility] Social History Combined list of available smoking, tobacco, and other social history from Department of Defense and Veterans Affairs facilities. 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 [facility] History of tobacco use TOBACCO USER OFFERED MEDS 12/06/2017 [facility] History of tobacco use TOBACCO USER OFFERED MEDS 06/21/2017 [facility] History of tobacco use TOBACCO USER OFFERED MEDS 02/14/2017 [facility] History of tobacco use TOBACCO USER OFFERED MEDS 09/13/2016 [facility] History of tobacco use TOBACCO OFFERED PT MEDS (PROVIDER) 07/11/2015 [facility] History of tobacco use TOBACCO OFFERED STOP [facility]MOKING CLINIC 05/28/2015 [facility] History of tobacco use TOBACCO OFFERED STOP [facility]MOKING CLINIC 03[facility]05/2014 [facility] History of tobacco use TOBACCO OFFERED STOP SMOKING CLINIC 04/02/2013 [facility] History of tobacco use TOBACCO OFFERED STOP SMOKING CLINIC 04/19/2012 [facility] History of tobacco use TOBACCO OFFERED PT MEDS (PROVIDER) 07/12/2011 [facility] History of tobacco use TOBACCO OFFERED PT MEDS (PROVIDER) 05/24/2011 [facility] History of tobacco use TOBACCO OFFERED PT MEDS (PROVIDER) 01/20/2011 [facility] History of tobacco use TOBACCO OFFERED PT MEDS (PROVIDER) 01/05/2011 [facility] History of tobacco use CURRENT TOBACCO USER 12/28/2010 [facility] History of tobacco use TOBACCO OFFERED PT MEDS (PROVIDER) 12/22/2010 [facility] History of tobacco use TOBACCO OFFERED PT MEDS (PROVIDER) 10/07/2010 [facility] History of tobacco use TOBACCO OFFERED PT MEDS (PROVIDER) 09/21/2010 [facility] History of tobacco use TOBACCO OFFERED PT MEDS (PROVIDER) 09/17/2010 [facility] History of tobacco use TOBACCO OFFERED PT MEDS (PROVIDER) 09/01/2010 [facility] History of tobacco use TOBACCO OFFERED PT MEDS (PROVIDER) 08/24/2010 [facility] History of tobacco use TOBACCO OFFERED PT MEDS (PROVIDER) 07/29/2010 [facility] History of tobacco use TOBACCO OFFERED PT MEDS (PROVIDER) 03/05/2010 [facility] History of tobacco use TOBACCO OFFERED PT MEDS (PROVIDER) 06/11/2009 [facility] History of tobacco use TOBACCO OFFERED PT MEDS (PROVIDER) 05/02/2009 [facility] Plan of Care List of future care activities from [facility] facilities. Additional future care activities may be listed in the Assessment and Plan section. Date/Time Care Activity Care Activity Detail Facili ty 09/28/2024 AMBULATORY - MEDICINE AMBULATORY - MEDICI [facility] Advance Directives List of completed, amended, or rescinded Advance Directives on record at [facility] facilities. An actual copy of the Directive is not included. Date Advance Directive Provider Source 10/09/2021 ADVANCE DIRECTIVE BRADY FITZPATRICK [facility] 08/24/2010 ADVANCE DIRECTIVE DISCUSSION MEIR AKHTAR CAIROMignon [facility]
[2024-08-23 15:53] VITALS: BP 108/55; PULSE 98; RESP 17; TEMP 37.1; O2SAT 92; BMI 22.8
--- OUTSIDE RECORDS SUMMARY | 2024-08-23 16:05 | XMS_ITS | Patient Health Record ---
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
[2024-08-23 18:14] VITALS: BP 102/58; PULSE 86; O2SAT 93
[2024-08-23 18:22] LABS: Hematocrit 27.3 % (37-53); Hemoglobin 8.30 g/dL (11.27-16.99); Mean Corpuscular HGB Conc 30.4 g/dL (30-55); Mean Corpuscular Hemoglobin 26.6 pg (27-33); Mean Corpuscular Volume 87.5 fl (82-101); Nucleated Red Blood Cells % 0 %; Platelet Count 203 10^3/cmm (157-399); Red Blood Count 3.12 10^6/uL (3.85-5.65); White Blood Count 7.61 10^3/uL (3.29-11.43)
[2024-08-23 18:35] LABS: INR 1.52 (0.8-1.2); Prothrombin Time 19.30 SECONDS (12.1-14.9)
[2024-08-23 18:36] LABS: Partial Thromboplastin Time 36.4 SECONDS (23.9-36.7)
[2024-08-23 18:42] LABS: Alanine Aminotransferase 7 U/L (0-41); Albumin Level 3.8 g/dL (3.5-5.2); Alkaline Phosphatase 70 U/L (40-130); Anion Gap 16.4 (5-19); Aspartate Amino Transferase 15 U/L (0-40); Blood Urea Nitrogen 20 mg/dL (8-23); Calcium 9.1 mg/dL (8.5-10.5); Carbon Dioxide 25 mmol/L (22-29); Chloride 103 mmol/L (98-107); Creatinine Clr Calc Pharmacy 47.3997; Globulin 4.4 g/dL (1.3-4.6); Glucose 96 mg/dL (65-115); Osmolality Calculated 292 mOsm/kg (285-295); Potassium 4.4 mmol/L (3.5-5.1); Sodium 140 mmol/L (136-145); Total Protein 8.2 g/dL (6.6-8.7)
--- NOTE | 2024-08-23 23:05 | W.ED.EPISTAX ---
HPI - Epistaxis General: Chief complaint: Epistaxis Stated complaint: nose bleed Time Seen by Provider: 08/23/24 18:10 History of Present Illness: 68-year-old male presents to ED today for evaluation of epistaxis that started today but has been intermittent for 3 weeks At time of my examination he states he has not had any further bleeding since 9. He does take Eliquis due to a previous pulmonary emboli. States he has had episodes of epistaxis before that were easily treated at home. Related Data Home Medications ?Medication ?Instructions ?Recorded ?Confirmed cetirizine 10 mg tablet (Zyrtec) 10 mg PO DAILY 06/19/19 07/25/24 tamsulosin 0.4 mg capsule 0.4 mg PO QPM 06/19/19 07/25/24 cholecalciferol (vitamin D3) 50 4,000 unit PO .TWICE WEEKLY 01/20/22 07/25/24 mcg (2,000 unit) tablet (Vitamin D3) gabapentin 300 mg capsule 300 mg PO TID 01/20/22 07/25/24 fluticasone propionate 50 1 spray intranasal BID PRN Nasal 05/20/22 07/25/24 mcg/actuation nasal Congestion spray,suspension (Flonase Allergy Relief) apixaban 5 mg tablet (Eliquis) 5 mg PO BID 12/02/23 07/25/24 Previous Rx's ?Medication ?Instructions ?Recorded tiotropium 2.5 mcg-olodaterol 2.5 2 puff inhalation DAILY #4 grams 08/07/19 mcg/actuation mist for inhalation (Stiolto Respimat) ezetimibe 10 mg tablet 10 mg PO DAILY #60 tabs 11/03/23 alprazolam 0.5 mg tablet 0.5 mg PO TID PRN Anxiety #1 tab 06/27/24 dexamethasone 4 mg tablet 4 mg PO DAILY #4 tabs 06/27/24 fluticasone propionate 250 1 inh inhalation BID #60 ea 06/27/24 mcg/actuation blister powder for inhalation guaifenesin 600 mg tablet, 1,200 mg (2 x 600 mg) PO BID #12 06/27/24 extended release 12 hr (Mucinex) tabs levofloxacin 500 mg tablet 500 mg PO DAILY@0600 #5 tabs 06/27/24 oxycodone 5 mg tablet 10 mg (2 x 5 mg) PO QID PRN pain 06/27/24 #1 tab osimertinib 40 mg tablet 80 mg (2 x 40 mg) PO DAILY #60 tabs 08/17/24 oxycodone 10 mg tablet 10 mg PO QID PRN pain 30 days #180 08/23/24 tabs Allergies Allergy/AdvReac Type Severity Reaction Status Date / Time Penicillins Allergy Severe ALGY-Rash Verified 07/25/24 15:12 Pzhtzrl-IPE-MpP Reductase Allergy Severe ALGY-Rash Verified 07/25/24 15:12 Inhibitor (Mnvmlfc-Nyq-Mdb Reductase Inhibitor) cefdinir AdvReac rash Verified 07/25/24 15:12 Review of Systems General: Reports: 10 or more systems reviewed and unremarkable except in HPI and below PFSH ED PFSH: Medical History (Updated 08/23/24 @ 19:08 by Michelle Rodrigez NP) Chronic hypoxic respiratory failure Acute exacerbation of chronic obstructive pulmonary disease Acute hypoxic respiratory failure Community acquired pneumonia Malignant neoplasm of right main bronchus Hepatocellular carcinoma Pulmonary embolism Chronic anxiety PTSD (post-traumatic stress disorder) Dyslipidemia Coronary artery disease History of nonmelanoma skin cancer Lung cancer metastatic to brain COPD (chronic obstructive pulmonary disease) HTN (hypertension) Arthritis Allergies Aortic aneurysm History of hepatitis C Surgical History History of cataract extraction Right eye, 2021 H/O colonoscopy 3 yrs ago H/O aortic aneurysm repair H/O circumcision S/P lobectomy of lung H/O hernia repair Family History Father Cancer Family/Other CAD (coronary artery disease) Cancer Grandfather Cancer Mother Brain aneurysm Denies family history of Anesthesia complication Bleeding disorder Social History Smoking and tobacco/nicotine status: former use of tobacco/nicotine (smokeless tobacco) Quit status (tobacco/nicotine): considering quitting Alcohol intake: current Alcohol intake frequency: 0-2 Drinks per Day Alcohol type: beer Substance/Drug Use: former Date of last use: Many years ago Former substance use details: LSD, Speed, weed Additional social history: Patient is he wants DO NOT RESUSCITATE status would not want to live on a machine Lives independently: Yes Household members: spouse Marital status: service: Yes Current occupational status: disabled 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 Do you think of yourself as: Straight/Heterosexual Current gender identity: Male Physical Exam Const: COMMON NORMALS: no acute distress, average body habitus, patient oriented x3, no limitations, healthy appearing, alert and well nourished GENERAL APPEARANCE: cooperative ORIENTATION/CONSCIOUSNESS: Yes awake, Yes oriented to person, Yes oriented to place and Yes oriented to time HENMT: COMMON NORMALS: Normal external nose present FACE & SINUS: normal facial exam and sinuses nontender NOSE: Normal external nose present, No nasal polyps present, No nasal discharge present, Epistaxis present (scant dried blood to L nare; no active bleeding) and Other nasal findings present (Appears to have friable tissue at left Kiesselbach plexus; no active bleed) THROAT: posterior oropharynx normal Neuro: COMMON NORMALS: patient oriented x3 SENSORIUM/ORIENTATION: Yes alert, Yes oriented to person, Yes oriented to place and Yes oriented to time Course Vital Signs: Vital signs: Vital Signs Temperature 98.7 F 08/23/24 15:53 Pulse Rate 86 08/23/24 18:14 Respiratory Rate 17 08/23/24 15:53 Blood Pressure 102/58 08/23/24 18:14 Pulse Oximetry 93 08/23/24 18:14 Oxygen Delivery Me thod Room Air 08/23/24 15:53 MDM - Epistaxis Medical Decision Making 68-year-old male presents to ED today for evaluation of epistaxis that started today but has been intermittent for 3 weeks At time of my examination he states he has not had any further bleeding since 9. He does take Eliquis due to a previous pulmonary emboli. States he has had episodes of epistaxis before that were easily treated at home. I discussed patient hemoglobin and he states he is chronically low this is slightly lower than previous. [facility]. Pt states his chronic SOB is no worse and he denies any dizziness or light headedness. I discussed home care with patient as well as return precautions and follow up. Lab Data 08/23/24 18:02 08/23/24 18:02 Laboratory Results WBC 7.61 10^3/uL (3.29-11.43) 08/23/24 18:02 RBC 3.12 10^6/uL (3.85-5.65) L 08/23/24 18:02 Hgb 8.30 g/dL (11.27-16.99) L 08/23/24 18:02 Hct 27.3 % (37-53) L 08/23/24 18:02 MCV 87.5 fl (82-101) 08/23/24 18:02 MCH 26.6 pg (27-33) L 08/23/24 18:02 MCHC 30.4 g/dL (30-55) 08/23/24 18:02 RDW 15.9 % (12.1-15.1) H 08/23/24 18:02 Plt Count 203 10^3/cmm (157-399) 08/23/24 18:02 MPV 10.3 fL (7.4-10.4) 08/23/24 18:02 Neut % (Auto) 68.6 % 08/23/24 18:02 Lymph % (Auto) 20.5 % 08/23/24 18:02 Luna % (Auto) 9.3 % 08/23/24 18:02 Eos % (Auto) 0.9 % 08/23/24 18:02 Baso % (Auto) 0.4 % 08/23/24 18:02 Neut # (Auto) 5.22 10^3/uL (1.8-7.7) 08/23/24 18:02 Lymph # (Auto) 1.6 10^3/uL (0.8-4.8) 08/23/24 18:02 Luna # (Auto) 0.7 10^3/uL (0.2-0.9) 08/23/24 18:02 Eos # (Auto) 0.1 10^3/uL (0.0-0.8) 08/23/24 18:02 Baso # (Auto) 0.0 10^3/uL (0.0-0.1) 08/23/24 18:02 Nucleated RBC % (auto) 0 % 08/23/24 18:02 Nucleated RBCs # 0.0 /100WBC 08/23/24 18:02 PT 19.30 SECONDS (12.1-14.9) H 08/23/24 18:02 INR 1.52 (0.8-1.2) H 08/23/24 18:02 APTT 36.4 SECONDS (23.9-36.7) 08/23/24 18:02 Sodium 140 mmol/L (136-145) 08/23/24 18:02 Potassium 4.4 mmol/L (3.5-5.1) 08/23/24 18:02 Chloride 103 mmol/L (98-107) 08/23/24 18:02 Carbon Dioxide 25 mmol/L (22-29) 08/23/24 18:02 Anion Gap 16.4 (5-19) 08/23/24 18:02 BUN 20 mg/dL (8-23) 08/23/24 18:02 Creatinine 1.4 mg/dL (0.7-1.2) H 08/23/24 18:02 GFR Calculation 50.1 mL/min (90-130) L 08/23/24 18:02 Glucose 96 mg/dL (65-115) 08/23/24 18:02 Calculated Osmolality 292 mOsm/kg (285-295) 08/23/24 18:02 Calcium 9.1 mg/dL (8.5-10.5) 08/23/24 18:02 Total Bilirubin 0.4 mg/dL (0.15-1.2) 08/23/24 18:02 AST 15 U/L (0-40) 08/23/24 18:02 ALT 7 U/L (0-41) 08/23/24 18:02 Alkaline Phosphatase 70 U/L (40-130) 08/23/24 18:02 Total Protein 8.2 g/dL (6.6-8.7) 08/23/24 18:02 Albumin 3.8 g/dL (3.5-5.2) 08/23/24 18:02 Globulin 4.4 g/dL (1.3-4.6) 08/23/24 18:02 No radiology studies performed this visit Discharge Plan Discharge Patient Disposition: Home Clinical Impression: Epistaxis Condition: Stable Prescriptions: No Action Stiolto Respimat 2.5-2.5 mcg/actuation mist 2 puff INHALATION DAILY Qty: 4 3RF tamsulosin 0.4 mg capsule 0.4 mg PO QPM cetirizine [Zyrtec] 10 mg tablet 10 mg PO DAILY gabapentin 300 mg capsule 300 mg PO TID fluticasone propionate [Flonase Allergy Relief] 50 mcg/actuation spray,suspension 1 spray INTRANASAL BID PRN (Reason: Nasal Congestion) Rx Instructions: administer into each nostril ezetimibe 10 mg tablet 10 mg PO DAILY Qty: 60 0RF osimertinib 40 mg tablet 80 mg PO DAILY Qty: 60 0RF oxycodone 10 mg tablet 10 mg PO QID PRN (Reason: pain) 30 Days Qty: 180 0RF Rx Instructions: Take 1-2 tablets by mouth 4 times daily as needed for pain. cholecalciferol (vitamin D3) [Vitamin D3] 50 mcg (2,000 unit) tablet 4,000 unit PO .TWICE WEEKLY alprazolam 0.5 mg Tablet 0.5 mg PO TID PRN (Reason: Anxiety) Qty: 1 0RF dexamethasone 4 mg Tablet 4 mg PO DAILY Qty: 4 0RF oxycodone 5 mg Tablet 10 mg PO QID PRN (Reason: pain) Qty: 1 0RF guaifenesin [Mucinex] 600 mg Tablet Extended Release 12hr 1,200 mg PO BID Qty: 12 0RF levofloxacin 500 mg Tablet 500 mg PO DAILY@0600 Qty: 5 0RF fluticasone propionate 250 mcg/actuation blister with device 1 inh inhalation BID Qty: 60 0RF Eliquis 5 mg tablet 5 mg PO BID Discharge Orders: Discharge ED (Routine); Ordered 08/23/24 Ordered By: Michelle Rodrigez Referrals: Sridevi Campbell APRN [Primary Care Provider, Family Practice] Patient Instructions: Opioid Safety, Pain Management, Patient Portal & Aldo Instructions Print Language: Cameroonian Coding Level of Care Code ED High Rigger for Micah Vizcaino
== END 2024-08-23 19:25 | disposition home or self-care (01) ==
PROVIDERS: Emergency Medicine; Emergency Provider Registered Nurse; PCP Nurse Practitioner Family
DX: R04.0 Epistaxis (principal); Z79.01 Long term (current) use of anticoagulants; Z87.891 Personal history of nicotine dependence; J44.9 Chronic obstructive pulmonary disease, unspecified; E78.5 Hyperlipidemia, unspecified; I25.10 Atherosclerotic heart disease of native coronary artery without angina pectoris; I10 Essential (primary) hypertension
CPT/HCPCS: 80053; 85025; 85610; 85730; 99283

== ENCOUNTER 2024-10-04 15:34 | Oncology outpatient (recurring) (ONCR) | payer OTHER, SELFPAY ==
[2024-09-19 13:05] LABS: Hematocrit 24.5 % (37-53); Hemoglobin 7.30 g/dL (11.27-16.99); Mean Corpuscular HGB Conc 29.8 g/dL (30-55); Mean Corpuscular Hemoglobin 25.1 pg (27-33); Mean Corpuscular Volume 84.2 fl (82-101); Nucleated Red Blood Cells % 0 %; Platelet Count 215 10^3/cmm (157-399); Red Blood Count 2.91 10^6/uL (3.85-5.65); White Blood Count 5.12 10^3/uL (3.29-11.43)
[2024-09-19 13:26] LABS: Alanine Aminotransferase 10 U/L (0-41); Albumin Level 3.7 g/dL (3.5-5.2); Alkaline Phosphatase 64 U/L (40-130); Anion Gap 12.3 (5-19); Aspartate Amino Transferase 17 U/L (0-40); Blood Urea Nitrogen 19 mg/dL (8-23); Calcium 8.9 mg/dL (8.5-10.5); Carbon Dioxide 27 mmol/L (22-29); Chloride 102 mmol/L (98-107); Creatinine Clr Calc Pharmacy 50.6387; Ferritin 79 ng/mL (30-400); Globulin 4.4 g/dL (1.3-4.6); Glucose 108 mg/dL (65-115); Iron 28 ug/dL (59-158); Osmolality Calculated 287 mOsm/kg (285-295); Potassium 4.3 mmol/L (3.5-5.1); Sodium 137 mmol/L (136-145); Total Iron Binding Capacity 304 mcg/dl; Total Protein 8.1 g/dL (6.6-8.7); Unsaturated Iron Binding 276 ug/dL (112-347)
[2024-09-19 13:40] LABS: Vitamin B12 728 pg/mL (232-1245)
== END 2024-10-07 23:59 | disposition home or self-care (01) ==
PROVIDERS: Internal Medicine; PCP Nurse Practitioner Family; Visit Provider Internal Medicine Medical Oncology
DX: Z45.2 Encounter for adjustment and management of vascular access device (principal)
CPT/HCPCS: 36591; 80053; 82607; 82728; 82746; 83010; 83540; 83550; 83615; 85025; 85045; 96523; 99213

== ENCOUNTER 2024-10-23 12:37 | Emergency (ER) | payer OTHER, SELFPAY ==
[2024-10-23 12:41] VITALS: BP 154/79; PULSE 97; RESP 18; TEMP 37.4; O2SAT 93; BMI 22.0
--- NOTE | 2024-10-23 12:41 | XR_ITS ---
WS: [id number] XR chest 1V portable [id number] REASON FOR EXAM: weakness FINDINGS: Chemotherapy infusion port of the left chest with left trans subclavian infusion catheter to the level of the mid superior vena cava. Compared to 06/25/2024, diffuse reticular interstitial and groundglass opacities in the left lower lung have undergone significant resolution. Blunting of the costophrenic angle persists. Right central hilar mass (lung carcinoma) remains unchanged compared to the previous examination. The remainder of the right and left hemithoraces are unchanged compared to the previous examination. XR/XR chest 1V portable [id number] IMPRESSION: Abnormal chest with interval change as described above. No interval acute or poe bacute abnormality.
[2024-10-23 13:08] LABS: Hematocrit 30.1 % (37-53); Hemoglobin 9.10 g/dL (11.27-16.99); Mean Corpuscular HGB Conc 30.2 g/dL (30-55); Mean Corpuscular Hemoglobin 24.5 pg (27-33); Mean Corpuscular Volume 80.9 fl (82-101); Nucleated Red Blood Cells % 0 %; Platelet Count 231 10^3/cmm (157-399); Red Blood Count 3.72 10^6/uL (3.85-5.65); White Blood Count 8.23 10^3/uL (3.29-11.43)
--- NOTE | 2024-10-23 13:19 | ED_ITS ---
HPI - Weakness 2 General: Chief complaint: Weakness Stated complaint: General Weakness Time Seen by Provider: 10/23/24 12:37 History of Present Illness: 68-year-old male presents emergency room complaining of generalized weakness has not felt well for the last week. He has a history of lung cancer with metastasis to the liver he also has a history of underlying COPD. He was seen 5 days ago by his primary care doctor started on oral antibiotics. Is complaining of worsening shortness of breath low-grade fever. Associated symptoms: Denies chest pain, chills, dysuria or fever(s) Related Data Home Medications ?Medication ?Instructions ?Recorded ?Confirmed cetirizine 10 mg tablet (Zyrtec) 10 mg PO DAILY 10/04/24 tamsulosin 0.4 mg capsule 0.4 mg PO QPM 06/19/1910/04 cholecalciferol (vitamin D3) 50 4,000 unit PO .TWICE W EEKLY 01/20/22 10/04/24 mcg (2,000 unit) tablet (Vitamin D3) gabapentin 300 mg capsule 300 mg PO TID 01/20/2210/04 fluticasone propionate 50 1 spray intranasal BID PRN N matthew 05/20/22 10/04/24 mcg/actuation nasal Congestion spray,suspension (Flonase Allergy Relief) Previous Rx's ?Medication ?Instructions ?Recorded tiotropium 2.5 mcg-olodaterol 2.5 2 puff inhalation DA MOISÉS #4 grams 08/07/19 mcg/actuation mist for inhalation (Stiolto Respimat) ezetimibe 10 mg tablet 10 mg PO DAILY #60 tabs 10/09 07/31 alprazolam 0.5 mg tablet 0.5 mg PO TID PRN Anxiety #1 tab 06/27/24 dexamethasone 4 mg tablet 4 mg PO DAILY #4 tabs fluticasone propionate 250 1 inh inhalation BID #60 ea 06/27/24 mcg/actuation blister powder for inhalation guaifenesin 600 mg tablet, 1,200 mg (2 x 600 mg) PO BI D #12 06/27/24 extended release 12 hr (Mucinex) tabs levofloxacin 500 mg tablet 500 mg PO DAILY@0600 #5 tab s 06/27/24 oxycodone 5 mg tablet 10 mg (2 x 5 mg) PO QID PRN pain 06/27/24 #1 tab apixaban 2.5 mg tablet (Eliquis) 2.5 mg PO BID #60 tab s 09/19/24 ferrous gluconate 324 mg (37.5 mg 324 mg PO BID #60 ta bs 10/04/24 iron) tablet lorazepam 0.5 mg tablet (Ativan) 0.5 mg PO DAILY PRN a nxiety #5 tabs 10/04/24 pantoprazole 40 mg tablet,delayed 40 mg PO BID 30 days #60 tabs 10/23/24 release (Protonix) osimertinib 40 mg tablet 80 mg (2 x 40 mg) PO DAILY # 60 tabs 10/25/24 oxycodone 10 mg tablet 10 mg PO QID PRN pain 30 day s #180 10/25/24 tabs Allergies Allergy/AdvReac Type Severity Reaction Status Date / Time Penicillins Allergy Severe ALGY-Rash Verified 10/04/24 15:37 Irhywjb-BLZ-AfI Reductase Allergy Severe ALGY-Rash Verified 10/04/24 15:37 Inhibitor (Rxqgore-Vlk-Zmx Reductase Inhibitor) cefdinir AdvReac rash Verified 10/04/24 15:37 Review of Systems 2 Const: Denies: fever(s) or chills Card: Denies: chest pain Resp: Denies: dyspnea GI: Denies: abdominal pain : Denies: dysuria, urinary frequency or urinary urgency Musc: Denies: neck pain or back pain Skin/Breast: Denies: rash PFSH ED 2 PFSH: Medical History Chronic hypoxic respiratory failure Acute exacerbation of chronic obstructive pulmonary disease Acute hypoxic respiratory failure Community acquired pneumonia Malignant neoplasm of right main bronchus Hepatocellular carcinoma Pulmonary embolism Chronic anxiety PTSD (post-traumatic stress disorder) Dyslipidemia Coronary artery disease History of nonmelanoma skin cancer Lung cancer metastatic to brain COPD (chronic obstructive pulmonary disease) HTN (hypertension) Arthritis Allergies Aortic aneurysm History of hepatitis C Surgical History History of cataract extraction Right eye, 2021 H/O colonoscopy 3 yrs ago H/O aortic aneurysm repair H/O circumcision S/P lobectomy of lung H/O hernia repair Family History Father Cancer Family/Other CAD (coronary artery disease) Cancer Grandfather Cancer Mother Brain aneurysm Denies family history of Anesthesia complication Bleeding disorder Social History Smoking and tobacco/nicotine status: former use of tobacco/nicotine (smokeless tobacco) Quit status (tobacco/nicotine): considering quitting Alcohol intake: current Alcohol intake frequency: 0-2 Drinks per Day Alcohol type: beer Substance/Drug Use: former Date of last use: Many years ago Former substance use details: LSD, Speed, weed Additional social history: Patient is he wants DO NOT RESUSCITATE status would not want to live on a machine Lives independently: Yes Household members: spouse Marital status: service: Yes Current occupational status: disabled 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 Do you think of yourself as: Straight/Heterosexual Current gender identity: Male Physical Exam 2 Const: GENERAL APPEARANCE: cooperative ORIENTATION/CONSCIOUSNESS: Yes awake, Yes oriented to person, Yes oriented to place and Yes oriented to time HENMT: COMMON NORMALS: normocephalic, atraumatic and hearing grossly normal bilaterally HEAD & SCALP: normocephalic and atraumatic Resp: COMMON NORMALS: normal respiratory effort, No retractions, No use of accessory muscles and clear to auscultation bilaterally AUSCULTATION: clear to auscultation bilaterally Cardio: COMMON NORMALS: regular rate, regular rhythm and No murmurs present (Cardio) RATE: regular rate RHYTHM: regular rhythm GI: COMMON NORMALS: Soft to palpation and No hepatosplenomegaly present A USCULTATION: Yes normoactive bowel sounds PALPATION: Yes Soft to palpation, No Tenderness to palpation present (GI), No Guarding due to palpation present (GI) and Yes No hepatosplenomegaly present Extremity: COMMON NORMALS: normal to inspection, capillary refill normal, no clubbing, cyanosis or edema, no calf tenderness and no pedal edema Neuro: SENSORIUM/ORIENTATION: Yes oriented to person, Yes oriented to place and Yes oriented to time Skin: COMMON NORMALS: no rashes or lesions noted GENERAL SKIN EXAM: no rashes or lesions noted Course 2 Vital Signs: Vital signs: Vital Signs Temperature 99.4 F 10/23/24 12:41 Pulse Rate 107 H 10/23/24 17:22 Respiratory Rate 18 10/23/24 12:41 Blood Pressure 137/76 10/23/24 17:22 Pulse Oximetry 94 10/23/24 17:22 Oxygen Delivery Me thod Room Air 10/23/24 12:41 MDM - Weakness Medical Decision Making Patient has duodenitis on CT. Will start him on pantoprazole. Reviewed other findings with him. No evidence of acute GI bleed at this time. Back to his hemoglobin has improved. Discharge home have him follow-up with his primary care doctor. Patient is given IV fluids he is states he is feeling better. Medical Records I reviewed the patient's medical records. Lab Data I reviewed the patient's lab results. 10/23/24 12:52 10/23/24 12:52 Radiology Impressions Chest X-Ray 10/23/24 12:41 IMPRESSION: Abnormal chest with interval change as described above. No interval acute or subacute abnormality. Abdomen/Pelvis CT 10/23/24 15:22 IMPRESSION: 1. Significant wall thickening and edema involving the distal aspect of the 2nd portion of the duodenum as well as the 3rd portion of the duodenum concerning for duodenitis. No evidence of perforation or abscess formation. 2. Known previously characterized left hepatic lobe hemangioma not well visualized on this noncontrast exam. 3. Left inguinal hernia containing a segment of the descending colon without CT evidence of colonic obstruction or strangulation. 4. Nonobstructing left intrarenal stone measuring 3 mm. 5. Nonspecific mild prostatic enlargement. 6. Other nonacute findings as described above. ADDENDUM: 10/23/24 1650 Comparison was also performed to CT scan of the chest, abdomen, and pelvis dated 04/27/2024. Laboratory Results WBC 8.23 10^3/uL (3.29-11.43) 10/23/24 12:52 RBC 3.72 10^6/uL (3.85-5.65) L 10/23/24 12:52 Hgb 9.10 g/dL (11.27-16.99) L 10/23/24 12:52 Hct 30.1 % (37-53) L 10/23/24 12:52 MCV 80.9 fl (82-101) L 10/23/24 12:52 MCH 24.5 pg (27-33) L 10/23/24 12:52 MCHC 30.2 g/dL (30-55) 10/23/24 12:52 RDW 17.4 % (12.1-15.1) H 10/23/24 12:52 Plt Count 231 10^3/cmm (157-399) 10/23/24 12:52 MPV 9.6 fL (7.4-10.4) 10/23/24 12:52 Neut % (Auto) 77.4 % 10/23/24 12:52 Lymph % (Auto) 9.7 % 10/23/24 12:52 [place]aves % (Auto) 11.9 % 10/23/24 12:52 Eos % (Auto) 0.4 % 10/23/24 12:52 Baso % (Auto) 0.2 % 10/23/24 12:52 Neut # (Auto) 6.37 10^3/uL (1.8-7.7) 10/23/24 12:52 Lymph # (Auto) 0.8 10^3/uL (0.8-4.8) 10/23/24 12:52 [place] # (Auto) 1.0 10^3/uL (0.2-0.9) H 10/23/24 12:52 Eos # (Auto) 0.0 10^3/uL (0.0-0.8) 10/23/24 12:52 Baso # (Auto) 0.0 10^3/uL (0.0-0.1) 10/23/24 12:52 Nucleated RBC % (auto) 0 % 10/23/24 12:52 Nucleated RBCs # 0.0 /100WBC 10/23/24 12:52 Sodium 136 mmol/L (136-145) 10/23/24 12:52 Potassium 4.4 mmol/L (3.5-5.1) 10/23/24 12:52 Chloride 97 mmol/L (98-107) L 10/23/24 12:52 Carbon Dioxide 26 mmol/L (22-29) 10/23/24 12:52 Anion Gap 17.4 (5-19) 10/23/24 12:52 BUN 30 mg/dL (8-23) H 10/23/24 12:52 Creatinine 1.5 mg/dL (0.7-1.2) H 10/23/24 12:52 GFR Calculation 46.3 mL/min (90-130) L 10/23/24 12:52 Glucose 126 mg/dL (65-115) H 10/23/24 12:52 Calculated Osmolality 290 mOsm/kg (285-295) 10/23/24 12:52 Calcium 9.0 mg/dL (8.5-10.5) 10/23/24 12:52 Magnesium 2.1 mg/dL (1.7-2.3) 10/23/24 12:52 Total Bilirubin 0.3 mg/dL (0.15-1.2) 10/23/24 12:52 AST 22 U/L (0-40) 10/23/24 12:52 ALT 13 U/L (0-41) 10/23/24 12:52 Alkaline Phosphatase 81 U/L (40-130) 10/23/24 12:52 Creatine Kinase 125 U/L (39-308) 10/23/24 12:52 Total Protein 9.0 g/dL (6.6-8.7) H 10/23/24 12:52 Albumin 3.7 g/dL (3.5-5.2) 10/23/24 12:52 Globulin 5.3 g/dL (1.3-4.6) H 10/23/24 12:52 Urine Color Yellow (Yellow) 10/23/24 14:35 Urine Appearance Cloudy (CLEAR) A 10/23/24 14:35 Urine pH 7.0 (5-7) 10/23/24 14:35 Ur Specific [place] 1.020 (1.005-1.030) 10/23/24 14:35 Urine Protein 3+ (Negative) A 10/23/24 14:35 Urine Glucose (UA) Negative (Normal) 10/23/24 14:35 Urine Ketones 1+ (Negative) H 10/23/24 14:35 Urine Blood 3+ (Negative) A 10/23/24 14:35 Urine Nitrate Negative (Negative) 10/23/24 14:35 Urine Bilirubin Negative (Negative) 10/23/24 14:35 Urine Urobilinogen 1.0 mg/dL (Negative) 10/23/24 14:35 Ur Leukocyte Esterase Trace (Negative) A 10/23/24 14:35 Urine RBC >100 /hpf (0-2) H 10/23/24 14:35 Urine WBC 6-10 /hpf (0-5) 10/23/24 14:35 Ur Squamous Epith Cells 0-5 /hpf (0-5) 10/23/24 14:35 Amorphous Sediment Not Reportable 10/23/24 14:35 Urine Bacteria None seen /hpf (NONE) 10/23/24 14:35 Hyaline Casts 1.21 /lpf 10/23/24 14:35 All radiology interpretation(s) finalized by discharge Discharge Plan Discharge Patient Disposition: Home Clinical Impression: Duodenitis, History of pulmonary embolism, Hepatocellular carcinoma, Bronchogenic lung cancer, Hematuria Condition: Stable Prescriptions: New pantoprazole [Protonix] 40 mg tablet,delayed release (DR/EC) 40 mg PO BID 30 Days Qty: 60 0RF Rx Instructions: 1 p.o. twice daily x 10 days then 1 p.o. daily No Action Stiolto Respimat 2.5-2.5 mcg/actuation mist 2 puff INHALATION DAILY Qty: 4 3RF tamsulosin 0.4 mg capsule 0.4 mg PO QPM cetirizine [Zyrtec] 10 mg tablet 10 mg PO DAILY gabapentin 300 mg capsule 300 mg PO TID fluticasone propionate [Flonase Allergy Relief] 50 mcg/actuation spray,suspension 1 spray INTRANASAL BID PRN (Reason: Nasal Congestion) Rx Instructions: administer into each nostril Eliquis 2.5 mg tablet 2.5 mg PO BID Qty: 60 0RF ferrous gluconate 324 mg (37.5 mg iron) tablet 324 mg PO BID Qty: 60 4RF lorazepam [Ativan] 0.5 mg tablet 0.5 mg PO DAILY PRN (Reason: anxiety) Qty: 5 0RF Rx Instructions: take one night before one tab two hours before imaging then use PRN for anxiety ezetimibe 10 mg tablet 10 mg PO DAILY Qty: 60 0RF osimertinib 40 mg tablet 80 mg PO DAILY Qty: 60 0RF Rx Instructions: please expedite oxycodone 10 mg tablet 10 mg PO QID PRN (Reason: pain) 30 Days Qty: 180 0RF Rx Instructions: Take 1-2 tablets by mouth 4 times daily as needed for pain. cholecalciferol (vitamin D3) [Vitamin D3] 50 mcg (2,000 unit) tablet 4,000 unit PO .TWICE WEEKLY alprazolam 0.5 mg Tablet 0.5 mg PO TID PRN (Reason: Anxiety) Qty: 1 0RF dexamethasone 4 mg Tablet 4 mg PO DAILY Qty: 4 0RF oxycodone 5 mg Tablet 10 mg PO QID PRN (Reason: pain) Qty: 1 0RF guaifenesin [Mucinex] 600 mg Tablet Extended Release 12hr 1,200 mg PO BID Qty: 12 0RF levofloxacin 500 mg Tablet 500 mg PO DAILY@0600 Qty: 5 0RF fluticasone propionate 250 mcg/actuation blister with device 1 inh inhalation BID Qty: 60 0RF Discharge Orders: Discharge ED (Routine); Ordered 10/23/24 Ordered By: Eleazar Thomas Referrals: Sridevi Campbell APRN [Primary Care Provider, Family Practice] Discharge Diet: Clear Liquid Discharge Activity: Increase activity as tolerated Patient Instructions: Opioid Safety, Pain Management, Patient Portal & [place] Instructions Activity Restrictions/Additional Instructions: [facility]. It is very important that you follow up as instructed or that you return to the Emergency Department should you have concerns or if your condition changes or worsens in any way. Emergency department visits are focused on emergent conditions, in some cases you may require further evaluation on an outpatient basis. You were seen in the emergency room with complaints of generally not feeling well. On evaluation here found to have hematuria without signs of infection on the scan there is no sign of masses or kidney stones. Suspect this is a result of your Eliquis. However you should continue the Eliquis since you have a history of pulmonary embolism. Urine was cultured you should follow-up with your oncology team and have your urine rechecked within the next week. CT also showed duodenitis which is an inflammation of the initial portion of small bowel and outlet of the stomach. There is no evidence of perforations or abscess recommend you start on Protonix 40 mg twice a day for 10 days then once daily. Recommend clear liquid diet for the next 24 to 48 hours then advance as tolerated. If any of your symptoms worsen return to the emergency room. (Please note that included in your discharge packet is information concerning opioid safety and pain management. This information is given to all patients were discharged from the ER regardless of their discharge diagnosis or the medicines they usually take or are prescribed.) Print Language: Faroese Coding Level of Care Code ED Automated Logistics Specialist for Micah Vizcaino
--- NOTE | 2024-10-23 13:20 | ECG_ITS ---
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 Measurements Intervals Walker Rate: 93 P: 69 NM: 184 QRS: 35 QRSD: 127 T: 52 QT: 366 QTc: 457 Interpretive Statements SINUS RHYTHM RIGHT BUNDLE BRANCH BLOCK [120+ ms QRS DURATION, UPRIGHT V1, 40+ ms S IN I/aVL/V4/V5/V6] ST ELEVATION, CONSIDER INFERIOR INJURY [MARKED ST ELEVATION W/O NORMALLY INFLECTED T-WAVE IN II/aVF] ACUTE OK Compared to ECG 06/25/2024 14:18:27 ST (T wave) deviation now present Myocardial infarct finding still present Electronically Signed On 10-23-2024 17:42:05 CDT by Jaison Winters M.D. [email or web address]
--- OUTSIDE RECORDS SUMMARY | 2024-10-23 13:21 | XMS_ITS | Patient Health Record ---
Author Organization [facility] Address [address] [place] [address] Care Team Providers Care Photo Equipment Technician Name Role Phone Singletary Ajay Primary Care Provider [phone] Reason For Referral No Information Medications Medication [...]
[2024-10-23 13:30] VITALS: BP 162/79; PULSE 96; O2SAT 92
[2024-10-23 13:32] LABS: Alanine Aminotransferase 13 U/L (0-41); Albumin Level 3.7 g/dL (3.5-5.2); Alkaline Phosphatase 81 U/L (40-130); Anion Gap 17.4 (5-19); Aspartate Amino Transferase 22 U/L (0-40); Blood Urea Nitrogen 30 mg/dL (8-23); Calcium 9.0 mg/dL (8.5-10.5); Carbon Dioxide 26 mmol/L (22-29); Chloride 97 mmol/L (98-107); Creatinine Clr Calc Pharmacy 43.6517; Globulin 5.3 g/dL (1.3-4.6); Glucose 126 mg/dL (65-115); Magnesium 2.1 mg/dL (1.7-2.3); Osmolality Calculated 290 mOsm/kg (285-295); Potassium 4.4 mmol/L (3.5-5.1); Sodium 136 mmol/L (136-145); Total Protein 9.0 g/dL (6.6-8.7)
[2024-10-23 14:00] VITALS: BP 155/73; PULSE 101; O2SAT 93
[2024-10-23 14:59] LABS: Glucose Urine UA Negative (Normal); Nitrate Urine Negative (Negative); Specific Gravity, Urine 1.020 (1.005-1.030)
[2024-10-23 15:00] VITALS: BP 153/78; PULSE 100; O2SAT 94
[2024-10-23 15:04] LABS: Add Urine Microscopic? YES
--- NOTE | 2024-10-23 15:22 | CTR_ITS ---
PROCEDURE INFORMATION: Exam: CT Abdomen And Pelvis Without Contrast Exam date and time: 10/23/2024 3:31 PM Age: 68 years old Clinical indication: Other: Hematuria; Prior surgery; Surgery date: 6+ months; Surgery type: Lung, liver, left lobectomy TECHNIQUE: Imaging protocol: Computed tomography of the abdomen and pelvis without contrast. Radiation optimization: All CT scans at this facility use at least one of these dose optimization techniques: automated exposure control; mA and/or kV adjustment per patient size (includes targeted exams where dose is matched to clinical indication); or iterative reconstruction. COMPARISON: 1. PT PET skull to thigh SUBS [id number] 12/30/2023 11:[address] scan of the abdomen dated 03/12/2022. RADIATION DOSE METRICS: Total DLP (mGy-cm): 442.85 FINDINGS: Lungs: No significant focal lesions in the visualized lung bases. Dependent atelectatic changes. Liver: Known previously characterized left hepatic lobe hemangioma not well visualized on this noncontrast exam. Gallbladder and biliary ducts: Gallbladder unremarkable. No significant biliary ductal dilatation. Pancreas: Moderate pancreatic atrophy associated with diffuse extensive punctate calcifications throughout the pancreas suggestive of sequelae of chronic pancreatitis. Spleen: Normal. No splenomegaly. Adrenal glands: Normal. No mass. Kidneys and ureters: Chronic subcapsular calcifications in the posterolateral aspect of the left kidney. Stable right renal cyst measuring 1.8 cm. No follow-up indicated. No hydronephrosis. Nonobstructing left intrarenal stone measuring 3 mm. No ureteral stones. Stomach and bowel: There is significant wall thickening and edema involving the distal aspect of the 2nd portion of the duodenum as well as the 3rd portion of the duodenum concerning for duodenitis. No evidence of perforation abscess formation. Normal caliber of the small bowel downstream from the duodenum. No colonic wall thickening or inflammation. Sigmoid colon diverticulosis without CT evidence of acute diverticulitis. Mild fecal impaction in the rectum. Appendix: No evidence of appendicitis. Intraperitoneal space: Unremarkable. No free air. No significant fluid collection. Vasculature: Aorto bi-iliac stent graft in place. Can not evaluate patency of the stent on this noncontrast exam. Infrarenal abdominal aorta measures up to 3.2 x 3.2 cm in the axial plane. Embolization coils in the region of the gastroduodenal artery. Lymph nodes: Unremarkable. No enlarged lymph nodes. Urinary bladder: Mildly distended urinary bladder which is otherwise unremarkable. Reproductive: Nonspecific mild prostatic enlargement. Bones/joints: Osteopenia. No significant focal osseous lesions. Soft tissues: Left inguinal hernia containing a segment of the descending colon without CT evidence of colonic obstruction or strangulation. CT/CT kidney stone [id number] IMPRESSION: 1. Significant wall thickening and edema involving the distal aspect of the 2nd portion of the duodenum as well as the 3rd portion of the duodenum concerning for duodenitis. No evidence of perforation or abscess formation. 2. Known previously characterized left hepatic lobe hemangioma not well visualized on this noncontrast exam. 3. Left inguinal hernia containing a segment of the descending colon without CT evidence of colonic obstruction or strangulation. 4. Nonobstructing left intrarenal stone measuring 3 mm. 5. Nonspecific mild prostatic enlargement. 6. Other nonacute findings as described above.
[2024-10-23 17:22] VITALS: BP 137/76; PULSE 107; O2SAT 94
== END 2024-10-23 17:22 | disposition home or self-care (01) ==
PROVIDERS: Emergency Provider Family Medicine; PCP Nurse Practitioner Family
DX: K29.80 Duodenitis without bleeding (principal); Z86.711 Personal history of pulmonary embolism; Z79.01 Long term (current) use of anticoagulants; C22.0 Liver cell carcinoma; J44.9 Chronic obstructive pulmonary disease, unspecified; C34.01 Malignant neoplasm of right main bronchus; I25.10 Atherosclerotic heart disease of native coronary artery without angina pectoris; E78.5 Hyperlipidemia, unspecified; I10 Essential (primary) hypertension; Z85.828 Personal history of other malignant neoplasm of skin; Z87.891 Personal history of nicotine dependence
CPT/HCPCS: 36415; 71045; 74176; 80053; 81001; 82550; 83735; 85025; 87086; 93005; 99285; J7030

== ENCOUNTER 2024-11-28 00:44 | Emergency (ER) | payer OTHER, SELFPAY ==
[2024-11-28] VITALS (8 sets, daily range): BP systolic 98–118; BP diastolic 49–56; PULSE 93–108; RESP 18–23; TEMP 36.9; O2SAT 91–97; BMI 22.0
--- OUTSIDE RECORDS SUMMARY | 2024-11-28 00:56 | XMS_ITS | Clinical Summary ---
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 Name Role Phone Unavailable Primary Care Provider Unavailabl e Encounters Date Type Department Care Team Description 11/26/2024 Abstract [facility] [place] [address] [facility] [address] [place] [id number] Provider, Abstract from Last 3 Months Social History Tobacco Use Types Packs/Day Years Used Date Smoking Tobacco: Never Assessed Sex and Gender Information Value Date Recorded Sex Assigned at Not on file 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 Gender Identity Not on file Sexual Orientation Not on file Plan of Treatment Health Maintenance Due Date Last Done Comments DIABETES ANNUAL FOOT EXAM 10/31/1971 DIABETES ANNUAL RETINAL EXAM 10/31/1971 DIABETES MICROALBUMIN ANNUAL SCREEN 10/31/1971 LDL CHOLESTEROL ANNUAL 10/31/1971 DTAP/TDAP/TD VACCINES (1 - Tdap) 1972 PNEUMOCOCCAL VACCINE 50+ YEARS (1 of 2 - PCV) 10/30/18 73 COLORECTAL SCREENING 1998 Colorectal Cancer Screening 1998 FIT-DNA Q 3 years 1998 FIT/FOBT Q 1 year 1998 Flex Sig/CT Colonography Q 5 years 1998 RSV VACCINE (60+ or ) (1 - Risk 50-74 years 1-dose series) 10/31/2003 ZOSTER VACCINE (1 of 2) 10/31/2003 DIABETES HBA1C Q 6 MONTHS 01/07/2023 07/08/2022 INFLUENZA VACCINE (#1) 2024
--- OUTSIDE RECORDS SUMMARY | 2024-11-28 00:56 | XMS_ITS | Encounter Summary ---
Author Organization [facility] Address 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
[2024-11-28 01:18] LABS: Hematocrit 24.9 % (37-53); Hemoglobin 7.80 g/dL (11.27-16.99); Mean Corpuscular HGB Conc 31.3 g/dL (30-55); Mean Corpuscular Hemoglobin 24.2 pg (27-33); Mean Corpuscular Volume 77.3 fl (82-101); Nucleated Red Blood Cells % 0 %; Platelet Count 159 10^3/cmm (157-399); Red Blood Count 3.22 10^6/uL (3.85-5.65); White Blood Count 4.82 10^3/uL (3.29-11.43)
[2024-11-28 01:23] LABS: Glucose Urine UA Negative (Normal); Nitrate Urine Negative (Negative); Specific Gravity, Urine 1.019 (1.005-1.030)
[2024-11-28 01:25] LABS: Add Urine Microscopic? YES
--- NOTE | 2024-11-28 01:29 | ED_ITS ---
HPI - Altered Mental Status 2 General: Chief Complaint: Altered Mental Status Stated Complaint: Confused\No Eye Contact Time Seen by Provider: 11/28/24 00:47 History of Present Illness: Patient is a 69-year-old male with a past medical history significant for non- small cell lung cancer, stage IV with brain metastases. Patient also has a history of hepatocellular carcinoma, anemia and iron deficiency. He is currently treated with Tegretol and Tagrisso; states he's not had chemotherapy for some time now. Additionally, patient also has COPD and requires oxygen at home and is on 3 L. He has a history of aortic aneurysm status postrepair. He has had a lobectomy of the lung and a hernia repair. Today, patient presents with confusion, word finding difficulty, subjective fever and chills, decreased appetite. Patient has also suffered from a little bit of dysuria. Patient denies chest pain, painful respirations, shortness of breath or increasing oxygen. He has not had an increase in inhaler use. No abdominal pain, nausea or vomiting but he has had a decreased appetite and has not been eating and drinking well. Patient reports a little bit of dysuria. No lower extremity swelling, asymmetry or edema. Patient had CT imaging of his head on 11/15/24: IMPRESSION: 1. No evidence of enhancing intracrania l metastatic disease. Note MRI without and with gadolinium would be more sensitive for evaluation of metastasis if patient is a candidate or clinically indicated. 2. Mild small vessel changes with moder ate parenchymal volume loss. 3. RIGHT sphenoid sinusitis. CT imaging of chest/abd/pelvis on 11/26/24: IMPRESSION: 1. Left basilar heterogenous interstit ial alveolar opacities likely inflammatory in nature/pneumonia. Please correlate clinically. 2. Stable architectural changes of emp hysema and right hilar scarring. 3. Stable mildly enlarged inferior lef t paratracheal and subcarinal lymph node. IMPRESSION: 1. Left inguinal hernia containing a l oop of colon without obstruction. 2. Nonobstructing left nephrolithiasis . 3. Stable posterior left capsular humberto l complex scarring and fluid collection. 4. Stable hepatic lobe hypodense lesio n. Related Data Home Medications ?Medication ?Instructions ?Recorded ?Confirmed cetirizine 10 mg tablet (Zyrtec) 10 mg PO DAILY 11/08/24 tamsulosin 0.4 mg capsule 0.4 mg PO QPM 06/19/1911/08 cholecalciferol (vitamin D3) 50 4,000 unit PO .TWICE W EEKLY 01/20/22 11/08/24 mcg (2,000 unit) tablet (Vitamin D3) gabapentin 300 mg capsule 300 mg PO TID 01/20/2211/08 fluticasone propionate 50 1 spray intranasal BID PRN N matthew 05/20/22 11/08/24 mcg/actuation nasal Congestion spray,suspension (Flonase Allergy Relief) Previous Rx's ?Medication ?Instructions ?Recorded tiotropium 2.5 mcg-olodaterol 2.5 2 puff inhalation DA MOISÉS #4 grams 08/07/19 mcg/actuation mist for inhalation (Stiolto Respimat) ezetimibe 10 mg tablet 10 mg PO DAILY #60 tabs 10/09 07/31 alprazolam 0.5 mg tablet 0.5 mg PO TID PRN Anxiety #1 tab 06/27/24 dexamethasone 4 mg tablet 4 mg PO DAILY #4 tabs fluticasone propionate 250 1 inh inhalation BID #60 ea 06/27/24 mcg/actuation blister powder for inhalation guaifenesin 600 mg tablet, 1,200 mg (2 x 600 mg) PO BI D #12 06/27/24 extended release 12 hr (Mucinex) tabs levofloxacin 500 mg tablet 500 mg PO DAILY@0600 #5 tab s 06/27/24 oxycodone 5 mg tablet 10 mg (2 x 5 mg) PO QID PRN pain 06/27/24 #1 tab ferrous gluconate 324 mg (37.5 mg 324 mg PO BID #60 ta bs 10/04/24 iron) tablet lorazepam 0.5 mg tablet (Ativan) 0.5 mg PO DAILY PRN a nxiety #5 tabs 10/04/24 osimertinib 40 mg tablet 80 mg (2 x 40 mg) PO DAILY # 60 tabs 11/26/24 oxycodone 10 mg tablet 10 mg PO QID PRN pain 30 day s #180 11/26/24 tabs levofloxacin 750 mg tablet 750 mg PO DAILY 4 days #4 t abs 11/28/24 Allergies Allergy/AdvReac Type Severity Reaction Status Date / Time Penicillins Allergy Severe ALGY-Rash Verified 11/08/24 13:04 Zffytfh-QQW-CaJ Reductase Allergy Severe ALGY-Rash Verified 11/08/24 13:04 Inhibitor (Ohvynbk-Ofi-Ohd Reductase Inhibitor) cefdinir AdvReac rash Verified 11/08/24 13:04 PFS ED 2 PFSH: Medical History (Updated 11/28/24 @ 04:52 by Juliette Jacob MD) Chronic hypoxic respiratory failure Acute exacerbation of chronic obstructive pulmonary disease Acute hypoxic respiratory failure Community acquired pneumonia Malignant neoplasm of right main bronchus Hepatocellular carcinoma Pulmonary embolism Chronic anxiety PTSD (post-traumatic stress disorder) Dyslipidemia Coronary artery disease History of nonmelanoma skin cancer Lung cancer metastatic to brain COPD (chronic obstructive pulmonary disease) HTN (hypertension) Arthritis Allergies Aortic aneurysm History of hepatitis C Surgical History History of cataract extraction Right eye, 2021 H/O colonoscopy 3 yrs ago H/O aortic aneurysm repair H/O circumcision S/P lobectomy of lung H/O hernia repair Family History Father Cancer Family/Other CAD (coronary artery disease) Cancer Grandfather Cancer Mother Brain aneurysm Denies family history of Anesthesia complication Bleeding disorder Social History Smoking and tobacco/nicotine status: former use of tobacco/nicotine (smokeless tobacco) Quit status (tobacco/nicotine): considering quitting Alcohol intake: current Alcohol intake frequency: 0-2 Drinks per Day Alcohol type: beer Substance/Drug Use: former Date of last use: Many years ago Former substance use details: LSD, Speed, weed Additional social history: Patient is he wants DO NOT RESUSCITATE status would not want to live on a machine Lives independently: Yes Household members: spouse Marital status: service: Yes Current occupational status: disabled 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 Patient is alert and oriented. Patient is breathing comfortably, no increased WOB or accessory muscle use on home 3L. He has little bit of rhonchi in the left base of the lungs but no wheezing or crackles otherwise. No hypotension, +mild tachycardia. Abdomen is soft, nondistended and nontender. No CVA tenderness on percussion of the flanks. Patient is moving all extremities, no deformity or gross injury. No lower extremity edema or asymmetry. Neuro: PERRL, EOMI, patient is alert and oriented. Speech is clear. No facial asymmetry. No focal weakness or numbness on exam. No difficulty with coordination. Course 2 Vital Signs: Vital signs: Vital Signs Temperature 98.4 F 11/28/24 00:49 Pulse Rate 98 11/28/24 03:30 Respiratory Rate 20 H 11/28/24 03:30 Blood Pressure 101/50 11/28/24 03:30 Pulse Oximetry 92 11/28/24 03:30 Oxygen Delivery Me thod Oxymask 11/28/24 02:00 Oxygen Flow Rate 3 11/28/24 02:00 MDM - Altered Mental Status Medical Decision Making 69yo M w/cc of malaise, weakness, confusion, poor appetite and some confusion today. Differential diagnosis includes but is limited to, confusion secondary to brain mets, viral upper respiratory infection, pneumonia, bronchitis, gastroenteritis, urinary tract infection, other. On exam, patient is hemodynamically stable. He is on baseline home O2. Patient was evaluated with CBC, CMP, lactic acid, procalcitonin, COVID and flu screen, EKG, chest x-ray, UA. Patient has a normal white blood cell count although he is on a medication that can cause leukopenia and this may be falsely low. Patient is anemic but this is stable from previous and is he does not describe any current bleeding. Patient does not have any actionable electrolyte abnormalities that would cause confusion. Creatinine is elevated but at baseline. Patient has normal liver function. Patient has normal lactic acid but procalcitonin is elevated. UA shows hematuria and is consistent w/UTI in light of dysuria. Additionally, CT imaging has showed possible left lower lobe pneumonia which coincides with patient's crackles on exam. He has not been started on antibiotics. Will start patient on the Levaquin which will treat both urinary tract infection and pneumonia. At this time, patient is stable and is comfortable with outpatient treatment. Due to immunocompromise, he was counseled on strict return precautions, advised to see his regular doctor in 48 to 72 hours. Patient was discharged in a stable condition. Lab Data 11/28/24 01:00 11/28/24 01:00 Laboratory Results WBC 4.82 10^3/uL (3.29-11.43) 11/28/24 01:00 RBC 3.22 10^6/uL (3.85-5.65) L 11/28/24 01:00 Hgb 7.80 g/dL (11.27-16.99) L 11/28/24 01:00 Hct 24.9 % (37-53) L 11/28/24 01:00 MCV 77.3 fl (82-101) L 11/28/24 01:00 MCH 24.2 pg (27-33) L 11/28/24 01:00 MCHC 31.3 g/dL (30-55) 11/28/24 01:00 RDW 19.6 % (12.1-15.1) H 11/28/24 01:00 Plt Count 159 10^3/cmm (157-399) 11/28/24 01:00 MPV 10.2 fL (7.4-10.4) 11/28/24 01:00 Neut % (Auto) 86.9 % 11/28/24 01:00 Lymph % (Auto) 7.3 % 11/28/24 01:00 [place] % (Auto) 5.2 % 11/28/24 01:00 Eos % (Auto) 0.0 % 11/28/24 01:00 Baso % (Auto) 0.2 % 11/28/24 01:00 Neut # (Auto) 4.19 10^3/uL (1.8-7.7) 11/28/24 01:00 Lymph # (Auto) 0.4 10^3/uL (0.8-4.8) L 11/28/24 01:00 [place] # (Auto) 0.3 10^3/uL (0.2-0.9) 11/28/24 01:00 Eos # (Auto) 0.0 10^3/uL (0.0-0.8) 11/28/24 01:00 Baso # (Auto) 0.0 10^3/uL (0.0-0.1) 11/28/24 01:00 Nucleated RBC % (auto) 0 % 11/28/24 01:00 Nucleated RBCs # 0.0 /100WBC 11/28/24 01:00 Sodium 132 mmol/L (136-145) L 11/28/24 01:00 Potassium 3.9 mmol/L (3.5-5.1) 11/28/24 01:00 Chloride 94 mmol/L (98-107) L 11/28/24 01:00 Carbon Dioxide 24 mmol/L (22-29) 11/28/24 01:00 Anion Gap 17.9 (5-19) 11/28/24 01:00 BUN 18 mg/dL (8-23) 11/28/24 01:00 Creatinine 1.7 mg/dL (0.7-1.2) H 11/28/24 01:00 GFR Calculation Not Reportable 11/28/24 01:00 Glucose 146 mg/dL (65-115) H 11/28/24 01:00 Calculated Osmolality 279 mOsm/kg (285-295) L 11/28/24 01:00 Lactic Acid 1.1 mmol/L (0.5-2.2) 11/28/24 01:00 Calcium 8.7 mg/dL (8.5-10.5) 11/28/24 01:00 Total Bilirubin 0.5 mg/dL (0.15-1.2) 11/28/24 01:00 AST 25 U/L (0-40) 11/28/24 01:00 ALT 12 U/L (0-41) 11/28/24 01:00 Alkaline Phosphatase 85 U/L (40-130) 11/28/24 01:00 Total Protein 8.3 g/dL (6.6-8.7) 11/28/24 01:00 Albumin 3.5 g/dL (3.5-5.2) 11/28/24 01:00 Globulin 4.8 g/dL (1.3-4.6) H 11/28/24 01:00 Procalcitonin 1.51 ng/mL (0-0.5) H 11/28/24 01:00 Urine Color [place] (Yellow) A 11/28/24 01:10 Urine Appearance Turbid (CLEAR) A 11/28/24 01:10 Urine pH 6.5 (5-7) 11/28/24 01:10 Ur Specific [place] 1.019 (1.005-1.030) 11/28/24 01:10 Urine Protein 3+ (Negative) A 11/28/24 01:10 Urine Glucose (UA) Negative (Normal) 11/28/24 01:10 Urine Ketones Negative (Negative) 11/28/24 01:10 Urine Blood 3+ (Negative) A 11/28/24 01:10 Urine Nitrate Negative (Negative) 11/28/24 01:10 Urine Bilirubin Negative (Negative) 11/28/24 01:10 Urine Urobilinogen 1.0 mg/dL (Negative) 11/28/24 01:10 Ur Leukocyte Esterase 2+ (Negative) A 11/28/24 01:10 Urine RBC >100 /hpf (0-2) H 11/28/24 01:10 Urine WBC >100 /hpf (0-5) H 11/28/24 01:10 Ur Squamous Epith Cells 0-5 /hpf (0-5) 11/28/24 01:10 Amorphous Sediment Not Reportable 11/28/24 01:10 Urine Bacteria 4+ /hpf (NONE) H 11/28/24 01:10 Hyaline Casts 26.04 /lpf 11/28/24 01:10 Influenza A (PCR) Negative (Negative) 11/28/24 01:40 Influenza Type B (PCR) Negative (Negative) 11/28/24 01:40 RSV (PCR) Negative (Negative) 11/28/24 01:40 SARS-CoV-2 (PCR) Negative (Negative) 11/28/24 01:40 No radiology studies performed this visit EKG Data EKG 1: Interpretation: Normal sinus rhythm with a heart rate of 94, left axis deviation, prolonged QRS, normal QTc, right bundle branch block morphology, no STEMI. Discharge Plan Discharge Patient Disposition: Home Clinical Impression: Left lower lobe pneumonia Qualifiers: Pneumonia type: due to unspecified organism Qualified Code(s): J18.9 - Pneumonia, unspecified organism Urinary tract infection Qualifiers: Urinary tract infection type: acute cystitis Hematuria presence: with hematuria Qualified Code(s): N30.01 - Acute cystitis with hematuria Condition: Stable Prescriptions: New levofloxacin 750 mg tablet 750 mg PO DAILY 4 Days Qty: 4 0RF No Action Stiolto Respimat 2.5-2.5 mcg/actuation mist 2 puff INHALATION DAILY Qty: 4 3RF tamsulosin 0.4 mg capsule 0.4 mg PO QPM cetirizine [Zyrtec] 10 mg tablet 10 mg PO DAILY gabapentin 300 mg capsule 300 mg PO TID fluticasone propionate [Flonase Allergy Relief] 50 mcg/actuation spray,suspension 1 spray INTRANASAL BID PRN (Reason: Nasal Congestion) Rx Instructions: administer into each nostril ferrous gluconate 324 mg (37.5 mg iron) tablet 324 mg PO BID Qty: 60 4RF lorazepam [Ativan] 0.5 mg tablet 0.5 mg PO DAILY PRN (Reason: anxiety) Qty: 5 0RF Rx Instructions: take one night before one tab two hours before imaging then use PRN for anxiety ezetimibe 10 mg tablet 10 mg PO DAILY Qty: 60 0RF oxycodone 10 mg tablet 10 mg PO QID PRN (Reason: pain) 30 Days Qty: 180 0RF Rx Instructions: Take 1-2 tablets by mouth 4 times daily as needed for pain. osimertinib 40 mg tablet 80 mg PO DAILY Qty: 60 0RF Rx Instructions: please expedite cholecalciferol (vitamin D3) [Vitamin D3] 50 mcg (2,000 unit) tablet 4,000 unit PO .TWICE WEEKLY alprazolam 0.5 mg Tablet 0.5 mg PO TID PRN (Reason: Anxiety) Qty: 1 0RF dexamethasone 4 mg Tablet 4 mg PO DAILY Qty: 4 0RF oxycodone 5 mg Tablet 10 mg PO QID PRN (Reason: pain) Qty: 1 0RF guaifenesin [Mucinex] 600 mg Tablet Extended Release 12hr 1,200 mg PO BID Qty: 12 0RF levofloxacin 500 mg Tablet 500 mg PO DAILY@0600 Qty: 5 0RF fluticasone propionate 250 mcg/actuation blister with device 1 inh inhalation BID Qty: 60 0RF Discharge Orders: Discharge ED (Routine); Ordered 11/28/24 Ordered By: Juliette Jacob Patient Instructions: Altered Mental Status (ED), Opioid Safety, Pain Management, Patient Portal & [place]o Instructions, Pneumonia - Bacterial, Urinary Tract Infection in Men (DC) Activity Restrictions/Additional Instructions: Please start taking your antibiotics as prescribed for urinary tract infection. Continue to monitor your condition very closely at home. If your condition worsens or additional concerns arise, please return to the emergency department for reassessment. Please see your regular doctor for close follow-up in 48 to 72 hours. Print Language: Polish Coding Level of Care Code ED Tube Turner for Micah Vizcaino
[2024-11-28 01:36] LABS: Alanine Aminotransferase 12 U/L (0-41); Albumin Level 3.5 g/dL (3.5-5.2); Alkaline Phosphatase 85 U/L (40-130); Anion Gap 17.9 (5-19); Aspartate Amino Transferase 25 U/L (0-40); Blood Urea Nitrogen 18 mg/dL (8-23); Calcium 8.7 mg/dL (8.5-10.5); Carbon Dioxide 24 mmol/L (22-29); Chloride 94 mmol/L (98-107); Creatinine Clr Calc Pharmacy 37.9660; Globulin 4.8 g/dL (1.3-4.6); Glucose 146 mg/dL (65-115); Osmolality Calculated 279 mOsm/kg (285-295); Potassium 3.9 mmol/L (3.5-5.1); Sodium 132 mmol/L (136-145); Total Protein 8.3 g/dL (6.6-8.7)
[2024-11-28 01:37] LABS: Lactic Sepsis W/Reflex 1.1 mmol/L (0.5-2.2)
[2024-11-28 01:38] LABS: UA Slide Review UA Slide Review Perf
[2024-11-28 01:42] LABS: Procalcitonin 1.51 ng/mL (0-0.5)
--- NOTE | 2024-11-28 01:50 | ECG_ITS ---
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 Measurements Intervals [place] Rate: 94 P: 69 AR: 184 QRS: -1 QRSD: 139 T: 51 QT: 378 QTc: 473 Interpretive Statements SINUS RHYTHM RIGHT BUNDLE BRANCH BLOCK [120+ ms QRS DURATION, UPRIGHT V1, 40+ ms S IN I/aVL/V4/V5/V6] Compared to ECG 10/23/2024 13:20:16 ST (T wave) deviation no longer present Myocardial infarct finding no longer present Electronically Signed On 11-28-2024 22:53:39 CDT by Jaison Winters M.D. [email or web address]
[2024-11-28 02:24] LABS: Respiratory Syncytial Virus Ce NEGATIVE (Negative); SARS-CoV-2 PCR NEGATIVE (Negative)
== END 2024-11-28 05:00 | disposition home or self-care (01) ==
PROVIDERS: Emergency Provider Emergency Medicine
DX: J18.9 Pneumonia, unspecified organism (principal); N30.01 Acute cystitis with hematuria; Z11.52 Encounter for screening for COVID-19; Z87.891 Personal history of nicotine dependence; J44.9 Chronic obstructive pulmonary disease, unspecified; C34.01 Malignant neoplasm of right main bronchus; C79.31 Secondary malignant neoplasm of brain; Z85.828 Personal history of other malignant neoplasm of skin; E78.5 Hyperlipidemia, unspecified; I25.10 Atherosclerotic heart disease of native coronary artery without angina pectoris; I10 Essential (primary) hypertension; Z99.81 Dependence on supplemental oxygen
CPT/HCPCS: 80053; 81001; 83605; 84145; 85025; 87637; 93005; 96360; 96361; 99284; J7120; J9999

== ENCOUNTER 2024-12-06 10:30 | Oncology outpatient (recurring) (ONCR) | payer OTHER, SELFPAY ==
[2024-11-08 14:22] LABS: Hematocrit 24.7 % (37-53); Hemoglobin 7.70 g/dL (11.27-16.99); Mean Corpuscular HGB Conc 31.2 g/dL (30-55); Mean Corpuscular Hemoglobin 24.3 pg (27-33); Mean Corpuscular Volume 77.9 fl (82-101); Nucleated Red Blood Cells % 0 %; Platelet Count 205 10^3/cmm (157-399); Red Blood Count 3.17 10^6/uL (3.85-5.65); White Blood Count 5.06 10^3/uL (3.29-11.43)
[2024-11-08 14:36] LABS: Alanine Aminotransferase 11 U/L (0-41); Albumin Level 3.4 g/dL (3.5-5.2); Alkaline Phosphatase 68 U/L (40-130); Anion Gap 15.0 (5-19); Aspartate Amino Transferase 23 U/L (0-40); Blood Urea Nitrogen 20 mg/dL (8-23); Calcium 9.1 mg/dL (8.5-10.5); Carbon Dioxide 28 mmol/L (22-29); Chloride 102 mmol/L (98-107); Ferritin 99 ng/mL (30-400); Globulin 5.0 g/dL (1.3-4.6); Glucose 139 mg/dL (65-115); Iron 24 ug/dL (59-158); Osmolality Calculated 295 mOsm/kg (285-295); Potassium 5.0 mmol/L (3.5-5.1); Sodium 140 mmol/L (136-145); Total Iron Binding Capacity 221 mcg/dl; Total Protein 8.4 g/dL (6.6-8.7); Unsaturated Iron Binding 197 ug/dL (112-347)
[2024-11-08 14:51] LABS: Vitamin B12 882 pg/mL (232-1245)
--- NOTE | 2024-11-15 15:30 | CT_ITS ---
WS: [id number] CT HEAD TECHNIQUE: Noncontrast and contrast-enhanced CT of the head. CLINICAL INFORMATION: malignant neoplasm of right bronchus COMPARISON: 2021 DLP: 2153.[address] scans at [facility] use at least one of these dose optimization techniques: automated exposure control; mA and/or kV adjustment per patient size (includes targeted exams where dose is matched to clinical indication); or iterative reconstruction. FINDINGS: No evidence of intracranial hemorrhage. Mild small vessel changes with moderate parenchymal volume loss. Dystrophic calcification along the falx. No hydrocephalus. Vascular calcification. Paranasal sinuses demonstrate mild RIGHT sphenoid sinusitis with frothy secretions. Deformity of the frontal sinus may be due to prior trauma. Mastoid air cells are well aerated. Dystrophic appearing calcifications along the LEFT parietal occipital junction were present in 2021 likely benign. This may represent a small calcified cavernoma with venous angioma. No evidence of enhancing intracranial metastatic disease. No other suspicious findings CT/CT head wo/w con [id number] IMPRESSION: 1. No evidence of enhancing intracranial metastatic disease. Note MRI without and with gadolinium would be more sensitive for evaluation of metastasis if pat ient is a candidate or clinically indicated. 2. Mild small vessel changes with moderate parenchymal volume loss. 3. RIGHT sphenoid sinusitis.
[2024-11-15] MEDS: iohexol 350 mg/mL 500 mL Btl (per mL) IV (15:45)
[2024-11-26] MEDS: iohexol 350 mg/mL 500 mL Btl (per mL) PO (11:16)
--- NOTE | 2024-11-26 12:00 | CTR_ITS ---
PROCEDURE INFORMATION: Exam: CT Chest With Contrast; Diagnostic Exam date and time: 11/26/2024 12:08 PM Age: 69 years old Clinical indication: Condition or disease; Other: Hepatocellular carcinoma, prior surgery; Surgery date: 6+ months; Surgery type: Port, left lobectomy, aaa, hernia TECHNIQUE: Imaging protocol: Diagnostic computed tomography of the chest with contrast. Radiation optimization: All CT scans at this facility use at least one of these dose optimization techniques: automated exposure control; mA and/or kV adjustment per patient size (includes targeted exams where dose is matched to clinical indication); or iterative reconstruction. Contrast material: OMNI 350; Contrast volume: 100 ml; Contrast route: INTRAVENOUS (IV); COMPARISON: CT ch abdpel wo/w [id number] 04/27/2024 12:34 PM RADIATION DOSE METRICS: Total DLP (mGy-cm): 645.93 FINDINGS: Lungs: There remains moderate to severe architectural changes of centrilobular emphysema throughout the lungs. There is increasing heterogenous interstitial alveolar opacity within the inferior left lower lobe compared to previous imaging. Given its acute change since CT of the abdomen from 10/23/2024 is likely is inflammatory. There is a stable calcified nodule within the posterior right upper lobe. No new discrete pulmonary nodule or mass lesion is detail. Pleural spaces: Unremarkable. No pneumothorax. No pleural effusion. Heart: Unremarkable. No cardiomegaly. No pericardial effusion. Coronary arteries: There is coronary artery calcification within the LAD. Lymph nodes: Again seen is the inferior left paratracheal enlarged lymph node measuring today short axis 13 mm, stable. The subcarinal lymph node is also stable with short axis of 13 mm. Vasculature: The thoracic aorta is normal in caliber with mild marginal atherosclerotic plaque. Bones/joints: There is degenerative changes throughout the thoracic spine. There are old posterior left-sided rib fractures, healed. Soft tissues: Unremarkable. Other findings: Complex architectural changes with scarring at the right hilum is unchanged. COMMENTS: The presence of pulmonary emphysema on CT is an independent risk factor for lung cancer. In the absence of a history or active diagnosis of lung cancer, it is recommended that this patient with emphysema be evaluated for enrollment in a low dose CT lung cancer screening program. PROCEDURE INFORMATION: Exam: CT Abdomen And Pelvis With Contrast Exam date and time: 11/26/2024 12:08 PM Age: 69 years old Clinical indication: Condition or disease; Other: Hepatocellular carcinoma, prior surgery; Surgery date: 6+ months; Surgery type: Port, left lobectomy, aaa, hernia TECHNIQUE: Imaging protocol: Computed tomography of the abdomen and pelvis with contrast. Radiation optimization: All CT scans at this facility use at least one of these dose optimization techniques: automated exposure control; mA and/or kV adjustment per patient size (includes targeted exams where dose is matched to clinical indication); or iterative reconstruction. Contrast material: OMNI 350; Contrast volume: 100 ml; Contrast route: INTRAVENOUS (IV); COMPARISON: CT kidney stone [id number] 10/23/2024 3:31 PM RADIATION DOSE METRICS: Total DLP (mGy-cm): 645.93 FINDINGS: Tubes, catheters and devices: Abdominal aortic endograft is in place with bilateral iliac limbs, stable. Liver: The left hepatic lobe hypodensity near the dome is stable in imaging appearance measuring similar size and dimension 2.8 cm by 2.8 cm. This was not active on recent PET-CT. The liver otherwise enhances normally. Gallbladder and biliary ducts: Normal. No calcified stones. No ductal dilation. Pancreas: There are a few small calcifications throughout the pancreas. The pancreas is moderately atrophic. Spleen: Normal. No splenomegaly. Adrenal glands: Normal. No mass. Kidneys and ureters: Cortical cysts at the superior pole of both kidneys are stable. There is some posterior capsular fluid collection and scarring at the midportion of the left kidney. There are small nonobstructing left intrarenal calculi with the largest at the inferior pole measuring 7 mm also stable. Stomach and bowel: Luminal contrast has traversed the majority of the small bowel. There is a moderate amount of stool within the colon. There is diverticulosis of the sigmoid colon. Appendix: No evidence of appendicitis. Intraperitoneal space: Unremarkable. No free air. No significant fluid collection. Vasculature: There is a moderately calcified right renal artery aneurysm at the hilum, stable. Lymph nodes: Unremarkable. No enlarged lymph nodes. Urinary bladder: Unremarkable as visualized. Reproductive: Unremarkable as visualized. Bones/joints: There is no acute osseous abnormality appreciated. Degenerative endplate changes are present throughout the lumbar spine and at the hips bilaterally. Soft tissues: There is a left inguinal hernia. This contains a short loop of the sigmoid colon without obstruction. CT/CT chest abdpel w/*[id number] IMPRESSION: 1. Left basilar heterogenous interstitial alveolar opacities likely inflammatory in nature/pneumonia. Please correlate clinically. 2. Stable architectural changes of emphysema and right hilar scarring. 3. Stable mildly enlarged inferior left paratracheal and subcarinal lymph node. IMPRESSION: 1. Left inguinal hernia containing a loop of colon without obstruction. 2. Nonobstructing left nephrolithiasis. 3. Stable posterior left capsular renal complex scarring and fluid collection. 4. Stable hepatic lobe hypodense lesion.
[2024-11-26] MEDS: iohexol 350 mg/mL 500 mL Btl (per mL) IV (12:18)
[2024-11-26] MEDS: ferric carboxy (PYXIS) 750 MG in sodium chloride 0.9% (100 ml) 100 ML 345 MG IV (12:39)
[2024-11-26 13:12] VITALS: BP 97/59; PULSE 90; RESP 18; TEMP 37; O2SAT 87
[2024-11-29 13:22] LABS: Hematocrit 23.4 % (37-53); Hemoglobin 7.20 g/dL (11.27-16.99); Mean Corpuscular HGB Conc 30.8 g/dL (30-55); Mean Corpuscular Hemoglobin 24.1 pg (27-33); Mean Corpuscular Volume 78.3 fl (82-101); Nucleated Red Blood Cells % 0 %; Platelet Count 127 10^3/cmm (157-399); Red Blood Count 2.99 10^6/uL (3.85-5.65); White Blood Count 7.53 10^3/uL (3.29-11.43)
[2024-11-29 13:45] LABS: Alanine Aminotransferase 17 U/L (0-41); Albumin Level 3.2 g/dL (3.5-5.2); Alkaline Phosphatase 79 U/L (40-130); Anion Gap 15.8 (5-19); Aspartate Amino Transferase 30 U/L (0-40); Blood Urea Nitrogen 41 mg/dL (8-23); Calcium 8.3 mg/dL (8.5-10.5); Carbon Dioxide 24 mmol/L (22-29); Chloride 94 mmol/L (98-107); Globulin 4.4 g/dL (1.3-4.6); Glucose 189 mg/dL (65-115); Iron 31 ug/dL (59-158); Osmolality Calculated 285 mOsm/kg (285-295); Potassium 3.8 mmol/L (3.5-5.1); Sodium 130 mmol/L (136-145); Total Iron Binding Capacity 184 mcg/dl; Total Protein 7.6 g/dL (6.6-8.7); Unsaturated Iron Binding 153 ug/dL (112-347)
[2024-11-29 14:02] LABS: Slide Review Slide Review Perform
[2024-11-29 14:04] LABS: Ferritin 1398 ng/mL (30-400)
[2024-12-03] MEDS: ferric carboxy (PYXIS) 750 MG in sodium chloride 0.9% (100 ml) 100 ML 345 MG IV (13:50)
[2024-12-03 14:16] VITALS: BP 87/51; PULSE 87; TEMP 37.1
[2024-12-05 12:01] LABS: Hematocrit 23.3 % (37-53); Hemoglobin 7.00 g/dL (11.27-16.99); Mean Corpuscular HGB Conc 30.0 g/dL (30-55); Mean Corpuscular Hemoglobin 24.3 pg (27-33); Mean Corpuscular Volume 80.9 fl (82-101); Nucleated Red Blood Cells % 0 %; Platelet Count 168 10^3/cmm (157-399); Red Blood Count 2.88 10^6/uL (3.85-5.65); White Blood Count 4.75 10^3/uL (3.29-11.43)
[2024-12-05 12:25] LABS: Alanine Aminotransferase 12 U/L (0-41); Albumin Level 3.2 g/dL (3.5-5.2); Alkaline Phosphatase 87 U/L (40-130); Anion Gap 13.3 (5-19); Aspartate Amino Transferase 25 U/L (0-40); Blood Urea Nitrogen 22 mg/dL (8-23); Calcium 8.5 mg/dL (8.5-10.5); Carbon Dioxide 26 mmol/L (22-29); Chloride 102 mmol/L (98-107); Globulin 4.8 g/dL (1.3-4.6); Glucose 130 mg/dL (65-115); Osmolality Calculated 289 mOsm/kg (285-295); Potassium 4.3 mmol/L (3.5-5.1); Sodium 137 mmol/L (136-145); Total Protein 8.0 g/dL (6.6-8.7)
[2024-12-06] VITALS (10 sets, daily range): BP systolic 92–133; BP diastolic 55–76; PULSE 75–93; RESP 17; TEMP 36.7–36.9; O2SAT 91–99
== END 2024-12-07 23:59 | disposition home or self-care (01) ==
PROVIDERS: Internal Medicine; PCP Nurse Practitioner Family; Visit Provider Internal Medicine Medical Oncology
DX: Z53.9 Procedure and treatment not carried out, unspecified reason; D50.9 Iron deficiency anemia, unspecified; N17.9 Acute kidney failure, unspecified; C22.0 Liver cell carcinoma
CPT/HCPCS: 36415; 36430; 36591; 70470; 71260; 74177; 80053; 82607; 82728; 82746; 83010; 83540; 83550; 83615; 85025; 85045; 86850; 86900; 86920; 96365; 99213; 99214; 99215; J1439; J9999; P9016

== ENCOUNTER → 2024-12-11 14:13 | Outpatient (BNVA) | payer OTHER, SELFPAY | PROVIDERS: PCP Nurse Practitioner Family; Visit Provider Surgery | DX: D50.9 Iron deficiency anemia, unspecified (principal) | CPT/HCPCS: 99204 ==

== ENCOUNTER → 2024-12-13 14:54 | Outpatient (BNVA) | payer OTHER, SELFPAY | PROVIDERS: PCP Nurse Practitioner Family; Visit Provider Nurse Practitioner Family | DX: D23.61 Other benign neoplasm of skin of right upper limb, including shoulder (principal); L82.1 Other seborrheic keratosis; D18.01 Hemangioma of skin and subcutaneous tissue; L57.8 Other skin changes due to chronic exposure to nonionizing radiation; Z08 Encounter for follow-up examination after completed treatment for malignant neoplasm; Z85.828 Personal history of other malignant neoplasm of skin; Z80.8 Family history of malignant neoplasm of other organs or systems | CPT/HCPCS: 99213 ==

== ENCOUNTER 2025-01-08 14:39 | Emergency (ER) | payer OTHER, SELFPAY ==
[2025-01-08 14:41] VITALS: BP 111/57; PULSE 98; RESP 18; TEMP 36.6; O2SAT 93; BMI 21.2
--- NOTE | 2025-01-08 14:47 | ECG_ITS ---
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 Measurements Intervals [place] Rate: 98 P: 83 MN: 156 QRS: 79 QRSD: 131 T: 68 QT: 353 QTc: 451 Interpretive Statements SINUS RHYTHM INDETERMINATE AXIS RIGHT BUNDLE BRANCH BLOCK [120+ ms QRS DURATION, UPRIGHT V1, 40+ ms S IN I/aVL/V4/V5/V6] Compared to ECG 11/28/2024 01:50:38 Indeterminate axis now present Electronically Signed On 01-08-2025 18:56:31 [employer] by Jaison Winters M.D. [email or web address]
--- NOTE | 2025-01-08 15:29 | XR_ITS ---
WS: [id number] Exam: XR chest 1V portable [id number] Date/Time of Exam: 01/08/2025 3:39 PM Reason For Exam: dyspnea/cough Comparison 10/23/2024. The lungs are hyperinflated and clear. Normal cardiomediastinal silhouette. Enlarged RIGHT hilum unchanged in appearance since the last study. LEFT subclavian no Chemo-Port ends in the lower one third of the SVC. Bony structures are intact. XR/XR chest 1V portable [id number] IMPRESSION: 1. Unchanged right hilar mass. 2. No acute infiltrate. 3. Pulmonary hyperinflation.
[2025-01-08 16:10] LABS: Hematocrit 33.9 % (37-53); Hemoglobin 10.40 g/dL (11.27-16.99); Mean Corpuscular HGB Conc 30.7 g/dL (30-55); Mean Corpuscular Hemoglobin 27.8 pg (27-33); Mean Corpuscular Volume 90.6 fl (82-101); Nucleated Red Blood Cells % 0 %; Platelet Count 149 10^3/cmm (157-399); Red Blood Count 3.74 10^6/uL (3.85-5.65); White Blood Count 6.23 10^3/uL (3.29-11.43)
--- OUTSIDE RECORDS SUMMARY | 2025-01-08 16:24 | XMS_ITS | Clinical Summary ---
Author Organization [facility] Address [address] Attn: Epic Prelude ADT CHYNA JAMESONEDD RECINOS [id number] Care Team Providers Care Geology Instructor Name Role Phone Unavailable Primary Care Provider Unavailabl e Encounters Date Type Department Care Team Description 11/26/2024 Abstract [facility] [place] [address] [facility] [address] [id number] Provider, Abstract from Last 3 Months Social History Tobacco Use Types Packs/Day Years Used Date Smoking Tobacco: Never Assessed Sex and Gender Information Value Date Recorded Sex Assigned at Not on file 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
[2025-01-08 16:25] LABS: Alanine Aminotransferase 8 U/L (0-41); Albumin Level 3.9 g/dL (3.5-5.2); Alkaline Phosphatase 78 U/L (40-130); Anion Gap 16.2 (5-19); Aspartate Amino Transferase 18 U/L (0-40); Blood Urea Nitrogen 20 mg/dL (8-23); Calcium 9.1 mg/dL (8.5-10.5); Carbon Dioxide 26 mmol/L (22-29); Chloride 99 mmol/L (98-107); Creatinine Clr Calc Pharmacy 39.7955; Globulin 4.8 g/dL (1.3-4.6); Glucose 101 mg/dL (65-115); Osmolality Calculated 287 mOsm/kg (285-295); Potassium 4.2 mmol/L (3.5-5.1); Sodium 137 mmol/L (136-145); Total Protein 8.7 g/dL (6.6-8.7)
[2025-01-08 17:01] VITALS: BP 106/69; PULSE 88; O2SAT 95
[2025-01-08 18:30] VITALS: BP 118/58; PULSE 95; O2SAT 96
--- NOTE | 2025-01-08 18:35 | W.ED.SOB ---
Documented by User: EULOGIO Armijo 01/08/25 18:56 HPI - SOB/Dyspnea General: Chief Complaint: Shortness of Breath/Dyspnea Stated Complaint: trouble breathing Time Seen by Provider: 01/08/25 16:46 Source: patient Mode of arrival: ambulatory Limitations: no limitations History of Present Illness: HPI Narrative: Patient is a 69-year-old male with past medical history of COPD and lung cancer presenting to the emergency department complaining of shortness of breath and productive cough for the past 3 days. Reports a history of pneumonia states this feels similar. Is not reporting any chest pain. States he uses oxygen as needed, today he was requiring oxygen as he noted his O2 level was 88 to 89%. At this time he is 96% on room air. He otherwise has no complaints, no peripheral edema, headaches, weakness, lightheadedness or dizziness. Rest of his vital stable at this time. There is no respiratory distress. MD elicited complaint: shortness of breath and cough Pertinent past history: COPD and other (lung cancer) Associated symptoms: Deny abdominal pain, chest pain, fever(s), lightheadedness, nausea, palpitations or vomiting Related Data Home Medications ?Medication ?Instructions ?Recorded ?Confirmed cetirizine 10 mg tablet (Zyrtec) 10 mg PO DAILY 06/19/19 01/07/25 tamsulosin 0.4 mg capsule 0.4 mg PO QPM 06/19/19 01/07/25 cholecalciferol (vitamin D3) 50 2,000 unit PO DAILY 01/20/22 01/07/25 mcg (2,000 unit) tablet (Vitamin D3) gabapentin 300 mg capsule 300 mg PO TID PRN Pain 01/20/22 01/07/25 fluticasone propionate 50 1 spray intranasal BID PRN Nasal 05/20/22 01/07/25 mcg/actuation nasal Congestion spray,suspension (Flonase Allergy Relief) ezetimibe 10 mg tablet (Zetia) 10 mg PO DAILY 01/07/25 01/07/25 ferrous gluconate 324 mg (37.5 mg 324 mg PO DAILY 01/07/25 01/07/25 iron) tablet omeprazole 20 mg tablet,delayed 20 mg PO DAILY 01/07/25 01/07/25 release osimertinib 40 mg tablet (Tagrisso) 80 mg PO DAILY 01/07/25 01/07/25 Previous Rx's ?Medication ?Instructions ?Recorded alprazolam 0.5 mg tablet 0.5 mg PO TID PRN Anxiety #1 tab 06/27/24 dexamethasone 4 mg tablet 4 mg PO DAILY #4 tabs 06/27/24 fluticasone propionate 250 1 inh inhalation BID #60 ea 06/27/24 mcg/actuation blister powder for inhalation guaifenesin 600 mg tablet, 1,200 mg (2 x 600 mg) PO BID #12 06/27/24 extended release 12 hr (Mucinex) tabs oxycodone 10 mg tablet 10 mg PO QID PRN pain 30 days #180 12/27/24 tabs doxycycline hyclate 100 mg tablet 100 mg PO BID 7 days #14 tabs 01/08/25 prednisone 10 mg tablets in a dose 10 mg PO DIRECTED #21 ea 01/08/25 pack Allergies Allergy/AdvReac Type Severity Reaction Status Date / Time Penicillins Allergy Severe ALGY-Rash Verified 01/08/25 14:52 Ijrlyye-UZL-BmO Reductase Allergy Severe ALGY-Rash Verified 01/08/25 14:52 Inhibitor (Nvzbazu-Bur-Uuq Reductase Inhibitor) cefdinir AdvReac rash Verified 01/08/25 14:52 Review of Systems General: Reports: 10 or more systems reviewed and unremarkable except in HPI and below Const: Denies: fever(s), chills or fatigue Eyes: Denies: change in vision ENMT: Denies: throat pain, ear or mastoid pain or nasal discharge Card: Denies: chest pain, palpitations, swelling of feet/ankles or lightheadedness Resp: Reports: dyspnea and productive cough; Denies: wheezing GI: Denies: abdominal pain, nausea, vomiting, diarrhea or constipation : Denies: flank pain, difficulty urinating, dysuria or urinary frequency Musc: Denies: neck pain, back pain or joint pain Skin/Breast: Denies: rash Neuro: Denies: headache(s), numbness in extremities or weakness in extremities 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 COPD (chronic obstructive pulmonary disease) HTN (hypertension) Arthritis Allergies Aortic aneurysm History of hepatitis C Surgical History History of cataract extraction Right eye, 2021 H/O colonoscopy 3 yrs ago H/O aortic aneurysm repair H/O circumcision S/P lobectomy of lung H/O hernia repair Family History Father Cancer Family/Other CAD (coronary artery disease) Cancer Grandfather Cancer Mother Brain aneurysm Denies family history of Anesthesia complication Bleeding disorder Social History Smoking and tobacco/nicotine status: never used tobacco/nicotine Quit status (tobacco/nicotine): considering quitting Alcohol intake: current Alcohol intake frequency: 0-2 Drinks per Day Alcohol type: beer Substance/Drug Use: former Date of last use: Many years ago Former substance use details: LSD, Speed, weed Additional social history: Patient is he wants DO NOT RESUSCITATE status would not want to live on a machine Lives independently: Yes Household members: spouse Marital status: service: Yes Current occupational status: disabled 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 No respiratory distress. HENMT: COMMON NORMALS: normocephalic, atraumatic and hearing grossly normal bilaterally HEAD & SCALP: normocephalic and atraumatic Eye: COMMON NORMALS: Equal, round and reactive pupils present, EOMs intact bilaterally and conjunctivae normal CONJUNCTIVA: Yes conjunctivae normal PUPIL: Yes Equal, round and reactive pupils present Neck/C-Spine: COMMON NORMALS: full ROM, supple and no JVD Resp: COMMON NORMALS: normal respiratory effort, No retractions, No use of accessory muscles and clear to auscultation bilaterally AUSCULTATION: clear to auscultation bilaterally Cardio: COMMON NORMALS: no JVD, regular rate, regular rhythm, No clicks present (Cardio), No murmurs present (Cardio) and No rub (Cardio) RATE: regular rate RHYTHM: regular rhythm GI: COMMON NORMALS: Normal to inspection, nondistended, normoactive bowel sounds present, Soft to palpation and non-tender AUSCULTATION: Yes normoactive bowel sounds PALPATION: Yes Soft to palpation RECTAL EXAM: Yes deferred Extremity: COMMON NORMALS: normal to inspection, full ROM and capillary refill normal Skin: COMMON NORMALS: no rashes or lesions noted GENERAL SKIN EXAM: no rashes or lesions noted Course Vital Signs: Vital signs: Vital Signs Temperature 98 F 01/08/25 14:41 Pulse Rate 92 01/08/25 19:08 Respiratory Rate 18 01/08/25 14:41 Blood Pressure 116/72 01/08/25 19:08 Pulse Oximetry 96 01/08/25 19:08 Oxygen Delivery Me thod Room Air 01/08/25 19:00 MDM - SOB/Dyspnea Medical Decision Making This patient presented with shortness of breath and productive cough for the past 3 days. He has pertinent medical history of lung cancer as well as COPD. On exam he is in no respiratory distress, oxygenating well on room air he states that he did require to use his supplemental oxygen earlier today but again at this time on room air greater than 96%. Rest of his vitals are stable. There are no concerning adventitious lung sounds. His lab workup is all reassuring, chest x-ray showing a stable right hilar mass with no acute infiltrate noted. At this time and with his reported productive cough and shortness of breath we will empirically treat for COPD exacerbation as he directly compares his symptoms to prior pneumonia/infectious process. He will be started with loading dose 200 mg doxycycline here and prescription sent to pharmacy to include prednisone taper. With his vitals being stable he is agreeable to outpatient treatment and he knows to return if his condition worsens. His viral swab is also negative for COVID or flu. Lab Data 01/08/25 15:56 01/08/25 15:56 Labs/Radiology: Radiology Impressions Chest X-Ray 01/08/25 15:29 IMPRESSION: 1. Unchanged right hilar mass. 2. No acute infiltrate. 3. Pulmonary hyperinflation. Laboratory Results WBC 6.23 10^3/uL (3.29-11.43) 01/08/25 15:56 RBC 3.74 10^6/uL (3.85-5.65) L 01/08/25 15:56 Hgb 10.40 g/dL (11.27-16.99) L 01/08/25 15:56 Hct 33.9 % (37-53) L 01/08/25 15:56 MCV 90.6 fl (82-101) 01/08/25 15:56 MCH 27.8 pg (27-33) 01/08/25 15:56 MCHC 30.7 g/dL (30-55) 01/08/25 15:56 RDW 20.3 % (12.1-15.1) H 01/08/25 15:56 Plt Count 149 10^3/cmm (157-399) L 01/08/25 15:56 MPV 10.4 fL (7.4-10.4) 01/08/25 15:56 Neut % (Auto) 71.9 % 01/08/25 15:56 Lymph % (Auto) 17.8 % 01/08/25 15:56 Coos % (Auto) 8.2 % 01/08/25 15:56 Eos % (Auto) 1.6 % 01/08/25 15:56 Baso % (Auto) 0.3 % 01/08/25 15:56 Neut # (Auto) 4.48 10^3/uL (1.8-7.7) 01/08/25 15:56 Lymph # (Auto) 1.1 10^3/uL (0.8-4.8) 01/08/25 15:56 Coos # (Auto) 0.5 10^3/uL (0.2-0.9) 01/08/25 15:56 Eos # (Auto) 0.1 10^3/uL (0.0-0.8) 01/08/25 15:56 Baso # (Auto) 0.0 10^3/uL (0.0-0.1) 01/08/25 15:56 Nucleated RBC % (auto) 0 % 01/08/25 15:56 Nucleated RBCs # 0.0 /100WBC 01/08/25 15:56 Sodium 137 mmol/L (136-145) 01/08/25 15:56 Potassium 4.2 mmol/L (3.5-5.1) 01/08/25 15:56 Chloride 99 mmol/L (98-107) 01/08/25 15:56 Carbon Dioxide 26 mmol/L (22-29) 01/08/25 15:56 Anion Gap 16.2 (5-19) 01/08/25 15:56 BUN 20 mg/dL (8-23) 01/08/25 15:56 Creatinine 1.6 mg/dL (0.7-1.2) H 01/08/25 15:56 GFR Calculation Not Reportable 01/08/25 15:56 Glucose 101 mg/dL (65-115) 01/08/25 15:56 Calculated Osmolality 287 mOsm/kg (285-295) 01/08/25 15:56 Calcium 9.1 mg/dL (8.5-10.5) 01/08/25 15:56 Total Bilirubin 0.4 mg/dL (0.15-1.2) 01/08/25 15:56 AST 18 U/L (0-40) 01/08/25 15:56 ALT 8 U/L (0-41) 01/08/25 15:56 Alkaline Phosphatase 78 U/L (40-130) 01/08/25 15:56 Total Protein 8.7 g/dL (6.6-8.7) 01/08/25 15:56 Albumin 3.9 g/dL (3.5-5.2) 01/08/25 15:56 Globulin 4.8 g/dL (1.3-4.6) H 01/08/25 15:56 Influenza A (PCR) Negative (Negative) 01/08/25 17:06 Influenza Type B (PCR) Negative (Negative) 01/08/25 17:06 RSV (PCR) Negative (Negative) 01/08/25 17:06 SARS-CoV-2 (PCR) Negative (Negative) 01/08/25 17:06 All radiology interpretation(s) finalized by discharge Discharge Plan Discharge Patient Disposition: Home Clinical Impression: Acute exacerbation of chronic obstructive airways disease Condition: Stable Prescriptions: New prednisone 10 mg tablets,dose pack 10 mg PO DIRECTED Qty: 21 0RF Rx Instructions: see taper instructions 6 tablets on day 1, 5 tablets on day 2, 4 tablets on day 3, 3 tablets on day 4, 2 tablets on day 5, and 1 tablet a day 6. P.o. doxycycline hyclate 100 mg tablet 100 mg PO BID 7 Days Qty: 14 0RF No Action tamsulosin 0.4 mg capsule 0.4 mg PO QPM cetirizine [Zyrtec] 10 mg tablet 10 mg PO DAILY gabapentin 300 mg capsule 300 mg PO TID PRN (Reason: Pain) fluticasone propionate [Flonase Allergy Relief] 50 mcg/actuation spray,suspension 1 spray INTRANASAL BID PRN (Reason: Nasal Congestion) Rx Instructions: administer into each nostril oxycodone 10 mg tablet 10 mg PO QID PRN (Reason: pain) 30 Days Qty: 180 0RF Rx Instructions: Take 1-2 tablets by mouth 4 times daily as needed for pain. cholecalciferol (vitamin D3) [Vitamin D3] 50 mcg (2,000 unit) tablet 2,000 unit PO DAILY alprazolam 0.5 mg Tablet 0.5 mg PO TID PRN (Reason: Anxiety) Qty: 1 0RF dexamethasone 4 mg Tablet 4 mg PO DAILY Qty: 4 0RF guaifenesin [Mucinex] 600 mg Tablet Extended Release 12hr 1,200 mg PO BID Qty: 12 0RF fluticasone propionate 250 mcg/actuation blister with device 1 inh inhalation BID Qty: 60 0RF ezetimibe [Zetia] 10 mg tablet 10 mg PO DAILY ferrous gluconate 324 mg (37.5 mg iron) tablet 324 mg PO DAILY Tagrisso 40 mg tablet 80 mg PO DAILY Rx Instructions: please expedite omeprazole 20 mg Tablet,Delayed Release (Dr/Ec) 20 mg PO DAILY Discharge Orders: Discharge ED (Routine); Ordered 01/08/25 Ordered By: Win Maza Referrals: Sridevi Campbell APRN [Primary Care Provider, Family Practice] Patient Instructions: Patient Portal & [facility]o Instructions Activity Restrictions/Additional Instructions: COPD Exacerbation Discharge Instructions Your Diagnosis You were treated for a flare-up (exacerbation) of your chronic obstructive pulmonary disease (COPD). This happened because your airways became more inflamed and irritated, causing increased cough, shortness of breath, and mucus production. Your chest X-ray showed that your lung cancer remains stable with no signs of pneumonia. Your Medications Please take the following medications exactly as prescribed: Doxycycline 100 mg: Take one tablet by mouth twice daily for 7 days. This antibiotic helps treat the bacterial infection that may be contributing to your COPD flare-up. Take this medication with a full glass of water and avoid lying down for at least 30 minutes after taking it to prevent irritation of your esophagus (food pipe). Prednisone taper: Take this steroid medication exactly as prescribed. Prednisone helps reduce inflammation in your airways and improves your breathing. Do not stop taking this medication early, even if you feel better. The dose will gradually decrease over several days. Never stop prednisone suddenly without talking to your doctor. Continue your regular COPD medications: Keep taking all of your usual inhalers and other COPD medications as prescribed. If you were using your rescue inhaler (short-acting bronchodilator) more frequently during this flare-up, you can gradually reduce it back to as-needed use as your symptoms improve. What to Expect - Your symptoms should start improving within the first few days of treatment - You may notice less coughing, easier breathing, and less mucus production - It may take 1-2 weeks to feel back to your baseline Warning Signs - When to Seek Medical Attention Return to the emergency department or call your doctor immediately if you experience any of the following: - Worsening shortness of breath that does not improve with your rescue inhaler - Shortness of breath at rest - Increased difficulty breathing or feeling like you cannot catch your breath - Chest pain or pressure - Confusion or difficulty staying awake - Fever (temperature above 100.4?F or 38?C) - Coughing up blood - Swelling in your legs or ankles that is new or getting worse - Blue or garcia color to your lips or fingernails Follow-Up Care - Schedule a follow-up appointment with your primary care doctor or lung specialist within 1-2 weeks - Bring all your inhalers to your appointment so your doctor can check that you are using them correctly - Discuss any concerns about your lung cancer or COPD management General Health Tips - Avoid smoking and secondhand smoke, as this worsens COPD - Stay away from people who are sick when possible - Wash your hands frequently - Stay up to date with your flu and pneumonia vaccines - Try to stay active within your limits - gentle walking can help your recovery - Drink plenty of fluids unless your doctor has told you to limit fluids Questions? If you have any questions about your medications or recovery, please contact your doctor's office. Print Language: Zimbabwean Coding Level of Care Code ED Master Control Operator for Micah Fwd Documented by User: Eleazar Thomas DO 01/08/25 20:59 HPI - SOB/Dyspnea General: Chief Complaint: Shortness of Breath/Dyspnea Stated Complaint: trouble breathing Time Seen by Provider: 01/08/25 16:46 Related Data Home Medications ?Medication ?Instructions ?Recorded ?Confirmed cetirizine 10 mg tablet (Zyrtec) 10 mg PO DAILY 06/19/19 01/07/25 tamsulosin 0.4 mg capsule 0.4 mg PO QPM 06/19/19 01/07/25 cholecalciferol (vitamin D3) 50 2,000 unit PO DAILY 01/20/22 01/07/25 mcg (2,000 unit) tablet (Vitamin D3) gabapentin 300 mg capsule 300 mg PO TID PRN Pain 01/20/22 01/07/25 fluticasone propionate 50 1 spray intranasal BID PRN Nasal 05/20/22 01/07/25 mcg/actuation nasal Congestion spray,suspension (Flonase Allergy Relief) ezetimibe 10 mg tablet (Zetia) 10 mg PO DAILY 01/07/25 01/07/25 ferrous gluconate 324 mg (37.5 mg 324 mg PO DAILY 01/07/25 01/07/25 iron) tablet omeprazole 20 mg tablet,delayed 20 mg PO DAILY 01/07/25 01/07/25 release osimertinib 40 mg tablet (Tagrisso) 80 mg PO DAILY 01/07/25 01/07/25 Previous Rx's ?Medication ?Instructions ?Recorded alprazolam 0.5 mg tablet 0.5 mg PO TID PRN Anxiety #1 tab 06/27/24 dexamethasone 4 mg tablet 4 mg PO DAILY #4 tabs 06/27/24 fluticasone propionate 250 1 inh inhalation BID #60 ea 06/27/24 mcg/actuation blister powder for inhalation guaifenesin 600 mg tablet, 1,200 mg (2 x 600 mg) PO BID #12 06/27/24 extended release 12 hr (Mucinex) tabs oxycodone 10 mg tablet 10 mg PO QID PRN pain 30 days #180 12/27/24 tabs doxycycline hyclate 100 mg tablet 100 mg PO BID 7 days #14 tabs 01/08/25 prednisone 10 mg tablets in a dose 10 mg PO DIRECTED #21 ea 01/08/25 pack Allergies Allergy/AdvReac Type Severity Reaction Status Date / Time Penicillins Allergy Severe ALGY-Rash Verified 01/08/25 14:52 Wldxebx-AHE-NuG Reductase Allergy Severe ALGY-Rash Verified 01/08/25 14:52 Inhibitor (Ezwdftk-Qkd-Kjw Reductase Inhibitor) cefdinir AdvReac rash Verified 01/08/25 14:52 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 COPD (chronic obstructive pulmonary disease) HTN (hypertension) Arthritis Allergies Aortic aneurysm History of hepatitis C Surgical History History of cataract extraction Right eye, 2021 H/O colonoscopy 3 yrs ago H/O aortic aneurysm repair H/O circumcision S/P lobectomy of lung H/O hernia repair Family History Father Cancer Family/Other CAD (coronary artery disease) Cancer Grandfather Cancer Mother Brain aneurysm Denies family history of Anesthesia complication Bleeding disorder Social History Smoking and tobacco/nicotine status: never used tobacco/nicotine Quit status (tobacco/nicotine): considering quitting Alcohol intake: current Alcohol intake frequency: 0-2 Drinks per Day Alcohol type: beer Substance/Drug Use: former Date of last use: Many years ago Former substance use details: LSD, Speed, weed Additional social history: Patient is he wants DO NOT RESUSCITATE status would not want to live on a machine Lives independently: Yes Household members: spouse Marital status: service: Yes Current occupational status: disabled 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 He has pertinent medical history of lung cancer as well as COPD. On exam he is in no respiratory distress, oxygenating well on room air he states that he did require to use his supplemental oxygen earlier today but again at this time on room air greater than 96%. Rest of his vitals are stable. There are no concerning adventitious lung sounds. His lab workup is all reassuring, chest x-ray showing a stable right hilar mass with no acute infiltrate noted. At this time and with his reported productive cough and shortness of breath we will empirically treat for COPD exacerbation as he directly compares his symptoms to prior pneumonia/infectious process. He will be started with loading dose 200 mg doxycycline here and prescription sent to pharmacy to include prednisone taper. With his vitals being stable he is agreeable to outpatient treatment and he knows to return if his condition worsens. His viral swab is also negative for COVID or flu. Chart reviewed Lab Data 01/08/25 15:56 01/08/25 15:56 Labs/Radiology: Radiology Impressions Chest X-Ray 01/08/25 15:29 IMPRESSION: 1. Unchanged right hilar mass. 2. No acute infiltrate. 3. Pulmonary hyperinflation. Laboratory Results WBC 6.23 10^3/uL (3.29-11.43) 01/08/25 15:56 RBC 3.74 10^6/uL (3.85-5.65) L 01/08/25 15:56 Hgb 10.40 g/dL (11.27-16.99) L 01/08/25 15:56 Hct 33.9 % (37-53) L 01/08/25 15:56 MCV 90.6 fl (82-101) 01/08/25 15:56 MCH 27.8 pg (27-33) 01/08/25 15:56 MCHC 30.7 g/dL (30-55) 01/08/25 15:56 RDW 20.3 % (12.1-15.1) H 01/08/25 15:56 Plt Count 149 10^3/cmm (157-399) L 01/08/25 15:56 MPV 10.4 fL (7.4-10.4) 01/08/25 15:56 Neut % (Auto) 71.9 % 01/08/25 15:56 Lymph % (Auto) 17.8 % 01/08/25 15:56 Coos % (Auto) 8.2 % 01/08/25 15:56 Eos % (Auto) 1.6 % 01/08/25 15:56 Baso % (Auto) 0.3 % 01/08/25 15:56 Neut # (Auto) 4.48 10^3/uL (1.8-7.7) 01/08/25 15:56 Lymph # (Auto) 1.1 10^3/uL (0.8-4.8) 01/08/25 15:56 Coos # (Auto) 0.5 10^3/uL (0.2-0.9) 01/08/25 15:56 Eos # (Auto) 0.1 10^3/uL (0.0-0.8) 01/08/25 15:56 Baso # (Auto) 0.0 10^3/uL (0.0-0.1) 01/08/25 15:56 Nucleated RBC % (auto) 0 % 01/08/25 15:56 Nucleated RBCs # 0.0 /100WBC 01/08/25 15:56 Sodium 137 mmol/L (136-145) 01/08/25 15:56 Potassium 4.2 mmol/L (3.5-5.1) 01/08/25 15:56 Chloride 99 mmol/L (98-107) 01/08/25 15:56 Carbon Dioxide 26 mmol/L (22-29) 01/08/25 15:56 Anion Gap 16.2 (5-19) 01/08/25 15:56 BUN 20 mg/dL (8-23) 01/08/25 15:56 Creatinine 1.6 mg/dL (0.7-1.2) H 01/08/25 15:56 GFR Calculation Not Reportable 01/08/25 15:56 Glucose 101 mg/dL (65-115) 01/08/25 15:56 Calculated Osmolality 287 mOsm/kg (285-295) 01/08/25 15:56 Calcium 9.1 mg/dL (8.5-10.5) 01/08/25 15:56 Total Bilirubin 0.4 mg/dL (0.15-1.2) 01/08/25 15:56 AST 18 U/L (0-40) 01/08/25 15:56 ALT 8 U/L (0-41) 01/08/25 15:56 Alkaline Phosphatase 78 U/L (40-130) 01/08/25 15:56 Total Protein 8.7 g/dL (6.6-8.7) 01/08/25 15:56 Albumin 3.9 g/dL (3.5-5.2) 01/08/25 15:56 Globulin 4.8 g/dL (1.3-4.6) H 01/08/25 15:56 Influenza A (PCR) Negative (Negative) 01/08/25 17:06 Influenza Type B (PCR) Negative (Negative) 01/08/25 17:06 RSV (PCR) Negative (Negative) 01/08/25 17:06 SARS-CoV-2 (PCR) Negative (Negative) 01/08/25 17:06 Discharge Plan Discharge Patient Disposition: Home Clinical Impression: Acute exacerbation of chronic obstructive airways disease Condition: Stable Prescriptions: New prednisone 10 mg tablets,dose pack 10 mg PO DIRECTED Qty: 21 0RF Rx Instructions: see taper instructions 6 tablets on day 1, 5 tablets on day 2, 4 tablets on day 3, 3 tablets on day 4, 2 tablets on day 5, and 1 tablet a day 6. P.o. doxycycline hyclate 100 mg tablet 100 mg PO BID 7 Days Qty: 14 0RF No Action tamsulosin 0.4 mg capsule 0.4 mg PO QPM cetirizine [Zyrtec] 10 mg tablet 10 mg PO DAILY gabapentin 300 mg capsule 300 mg PO TID PRN (Reason: Pain) fluticasone propionate [Flonase Allergy Relief] 50 mcg/actuation spray,suspension 1 spray INTRANASAL BID PRN (Reason: Nasal Congestion) Rx Instructions: administer into each nostril oxycodone 10 mg tablet 10 mg PO QID PRN (Reason: pain) 30 Days Qty: 180 0RF Rx Instructions: Take 1-2 tablets by mouth 4 times daily as needed for pain. cholecalciferol (vitamin D3) [Vitamin D3] 50 mcg (2,000 unit) tablet 2,000 unit PO DAILY alprazolam 0.5 mg Tablet 0.5 mg PO TID PRN (Reason: Anxiety) Qty: 1 0RF dexamethasone 4 mg Tablet 4 mg PO DAILY Qty: 4 0RF guaifenesin [Mucinex] 600 mg Tablet Extended Release 12hr 1,200 mg PO BID Qty: 12 0RF fluticasone propionate 250 mcg/actuation blister with device 1 inh inhalation BID Qty: 60 0RF ezetimibe [Zetia] 10 mg tablet 10 mg PO DAILY ferrous gluconate 324 mg (37.5 mg iron) tablet 324 mg PO DAILY Tagrisso 40 mg tablet 80 mg PO DAILY Rx Instructions: please expedite omeprazole 20 mg Tablet,Delayed Release (Dr/Ec) 20 mg PO DAILY Discharge Orders: Discharge ED (Routine); Ordered 01/08/25 Ordered By: Win Maza Referrals: Sridevi Campbell APRN [Primary Care Provider, Family Practice] Patient Instructions: Patient Portal & [facility] Instructions Activity Restrictions/Additional Instructions: COPD Exacerbation Discharge Instructions Your Diagnosis You were treated for a flare-up (exacerbation) of your chronic obstructive pulmonary disease (COPD). This happened because your airways became more inflamed and irritated, causing increased cough, shortness of breath, and mucus production. Your chest X-ray showed that your lung cancer remains stable with no signs of pneumonia. Your Medications Please take the following medications exactly as prescribed: Doxycycline 100 mg: Take one tablet by mouth twice daily for 7 days. This antibiotic helps treat the bacterial infection that may be contributing to your COPD flare-up. Take this medication with a full glass of water and avoid lying down for at least 30 minutes after taking it to prevent irritation of your esophagus (food pipe). Prednisone taper: Take this steroid medication exactly as prescribed. Prednisone helps reduce inflammation in your airways and improves your breathing. Do not stop taking this medication early, even if you feel better. The dose will gradually decrease over several days. Never stop prednisone suddenly without talking to your doctor. Continue your regular COPD medications: Keep taking all of your usual inhalers and other COPD medications as prescribed. If you were using your rescue inhaler (short-acting bronchodilator) more frequently during this flare-up, you can gradually reduce it back to as-needed use as your symptoms improve. What to Expect - Your symptoms should start improving within the first few days of treatment - You may notice less coughing, easier breathing, and less mucus production - It may take 1-2 weeks to feel back to your baseline Warning Signs - When to Seek Medical Attention Return to the emergency department or call your doctor immediately if you experience any of the following: - Worsening shortness of breath that does not improve with your rescue inhaler - Shortness of breath at rest - Increased difficulty breathing or feeling like you cannot catch your breath - Chest pain or pressure - Confusion or difficulty staying awake - Fever (temperature above 100.4?F or 38?C) - Coughing up blood - Swelling in your legs or ankles that is new or getting worse - Blue or garcia color to your lips or fingernails Follow-Up Care - Schedule a follow-up appointment with your primary care doctor or lung specialist within 1-2 weeks - Bring all your inhalers to your appointment so your doctor can check that you are using them correctly - Discuss any concerns about your lung cancer or COPD management General Health Tips - Avoid smoking and secondhand smoke, as this worsens COPD - Stay away from people who are sick when possible - Wash your hands frequently - Stay up to date with your flu and pneumonia vaccines - Try to stay active within your limits - gentle walking can help your recovery - Drink plenty of fluids unless your doctor has told you to limit fluids Questions? If you have any questions about your medications or recovery, please contact your doctor's office. Print Language: [place]an Coding Level of Care Code ED Master Control Operator for Micah Vizcaino
[2025-01-08 18:45] LABS: Respiratory Syncytial Virus Ce NEGATIVE (Negative); SARS-CoV-2 PCR NEGATIVE (Negative)
[2025-01-08 19:00] VITALS: BP 116/72; PULSE 92; O2SAT 94
[2025-01-08 19:08] VITALS: BP 116/72; PULSE 92; O2SAT 96
== END 2025-01-08 19:08 | disposition home or self-care (01) ==
PROVIDERS: Family Medicine; Emergency Provider Physician Assistant; PCP Nurse Practitioner Family
DX: J44.1 Chronic obstructive pulmonary disease with (acute) exacerbation (principal); Z85.118 Personal history of other malignant neoplasm of bronchus and lung; E78.5 Hyperlipidemia, unspecified; I25.10 Atherosclerotic heart disease of native coronary artery without angina pectoris; Z85.828 Personal history of other malignant neoplasm of skin; Z85.841 Personal history of malignant neoplasm of brain; I10 Essential (primary) hypertension; Z85.05 Personal history of malignant neoplasm of liver; Z11.52 Encounter for screening for COVID-19
CPT/HCPCS: 36415; 71045; 80053; 85025; 87637; 93005; 99285; J9999